=== PATIENT | male | born 1940 | race Caucasian/White ===

== ENCOUNTER 2017-10-20 02:35 | Emergency (ER) | payer MEDICARE ==
[~2017-10-20] VITALS: Ht 175.3 cm; Wt 83.9 kg
--- NOTE | 2017-10-20 03:31 | ED Neck-Back Pain/Injury ---
General Chief Complaint: Head/Cervical Problems Stated Complaint: NECK & HEAD PAIN Source of Information: Patient Exam Limitations: No Limitations History of Present Illness Date Seen by Provider: Oct 20, 2017 Time Seen by Provider: 03:22 Initial Comments Patient presents to ER by private conveyance with chief complaint of past several months now he's been having some chronic neck and back pain it's just been getting worse. He was controlling it with Aleve but then he started having a lot of acid reflux so his doctor put him on Voltaren which is helped marginally but he says he is not able to get any sleep because the pain in his neck and back. He said 20 years ago he had a surgery on his neck by a surgeon in [place]. He has not followed with physical therapy or another orthopedic surgeon or back and spine surgeon. He is using the Voltaren but no other topical creams. He uses tramadol with marginal relief. His son thinks that his back and neck pain is gotten worse the last couple days because the patient's has become more dependent of care and the patient has been having to try and lift her up out of chairs and help her go to the bathroom and he thinks this is what hurting his father's neck. Patient was recently started on Sinemet for his Parkinson's disease. He has a history of hypertension but no cardiac disease and is not on any amiodarone or other antiarrhythmics. Last tramadol was at 8:00 PM yesterday. Allergies and Home Medications Allergies Coded Allergies: No Known Drug Allergies (Unverified , 10/20/17) Patient Home Medication List Home Medication List Reviewed: Yes Constitutional: No chills, No diaphoresis, No fever, No malaise, No weakness EENTM: No ear pain, No eye pain Respiratory: No cough, No short of breath Cardiovascular: No chest pain, No edema Gastrointestinal: No abdominal pain, No constipation, No diarrhea, No nausea Genitourinary: No discharge, No dysuria Musculoskeletal: see HPI; No back pain, No joint pain; neck pain Skin: No pruritus, No rash Psychiatric/Neurological: Headache; Denies Numbness, Denies Paresthesia Past Phtsurw-Orbvsf-Zhfxtx Hx Patient Social History Alcohol Use: Denies Use Recreational Drug Use: No Smoking Status: Never a Smoker Recent Foreign Travel: No Contact w/Someone Who Travel: No Recent Hopitalizations: No Seasonal Allergies Seasonal Allergies: No Past Medical History Surgeries: Yes Orthopedic, Prostatectomy Respiratory: No Cardiac: Yes Hypertension Neurological: Yes Parkinson's Disease Genitourinary: Yes Prostate Problems Gastrointestinal: No Musculoskeletal: No Endocrine: No HEENT: No Cancer: Yes Prostate Psychosocial: No Integumentary: No Blood Disorders: No Physical Exam Vital Signs Vital Signs - First Documented 10/20/17 02:49 Temp 97.8 Pulse 82 Resp 19 B/P (MAP) 144/104 (117) Pulse Ox 97 O2 Delivery Room Air Capillary Refill : Height, Weight, BMI Height: '" Weight: lbs. oz. kg; BMI Method: General Appearance: No Apparent Distress, WD/WN HEENT: PERRL/EOMI, TMs Normal, Normal ENT Inspection, Pharynx Normal, Moist Mucous Membranes Neck: Normal Inspection, Supple, Tender Lateral Cardiovascular: Regular Rate, Rhythm, Normal Peripheral Pulses Respiratory: Chest Non Tender, Lungs Clear, Normal Breath Sounds Back: Normal Inspection, No CVA Tenderness, No Vertebral Tenderness Extremity: Normal Capillary Refill, Normal Inspection, Non Tender, No Calf Tenderness Neurologic/Psychiatric: Alert, Oriented x3, No Motor/Sensory Deficits, Normal Mood/Affect, shingle sawyer II-XII Norm as Tested, Other (negative for focal deficits or radiculopathy findings) Skin: Normal Color, Warm/Dry Progress/Results/Core Measures Results/Orders My Orders Orders - DEVI ARITA Lidocaine 1% Inj 20 Ml (Xylocaine 1% Inj (10/20/17 03:45) Acetaminophen Tablet (Tylenol Tablet) (10/20/17 03:45) Fentanyl Injection (Sublimaze Injection (10/20/17 03:45) Saline Lock/Iv-Start (10/20/17 03:31) Continuous Ekg Monitoring (10/20/17 03:31) Ondansetron Injection (Zofran Injectio (10/20/17 04:00) Ns (Ivpb) (Sodium Chloride 0.9% Ivpb Bag (10/20/17 03:52) Lidocaine 1% Inj 20 Ml (Xylocaine 1% Inj (10/20/17 04:30) Orphenadrine Injection (Norflex Injectio (10/20/17 04:30) Lidocaine 2% Viscous 15 Ml (Xylocaine Vi (10/20/17 04:30) Famotidine Tablet (Pepcid Tablet) (10/20/17 04:30) Antacid Suspension (Mylanta Suspension (10/20/17 04:30) Ketorolac Injection (Toradol Injection) (10/20/17 04:30) Ns (Ivpb) (Sodium Chloride 0.9% Ivpb Bag (10/20/17 04:32) Medications Given in ED Current Medications Medications Dose Ordered Sig/Heaven Route Start Time Stop Time Status Last Admin Dose Admin Al Hydrox/Mg Hydrox/Simethicone 30 ml ONCE ONCE PO 10/20/17 04:30 10/20/17 04:31 DC 10/20/17 04:43 30 ML Fentanyl Citrate 50 mcg ONCE ONCE IVP 10/20/17 03:45 10/20/17 03:46 DC 10/20/17 04:04 50 MCG Ketorolac Tromethamine 10 mg ONCE ONCE IVP 10/20/17 04:30 10/20/17 04:31 DC 10/20/17 04:43 10 MG Lidocaine HCl 10 ml ONCE ONCE INJ 10/20/17 04:30 10/20/17 04:31 DC 10/20/17 04:44 10 ML Lidocaine HCl 13 ml ONCE ONCE INJ 10/20/17 03:45 10/20/17 03:46 DC 10/20/17 04:04 13 ML Lidocaine HCl 15 ml ONCE ONCE PO 10/20/17 04:30 10/20/17 04:31 DC 10/20/17 04:43 15 ML Ondansetron HCl 4 mg ONCE ONCE IVP 10/20/17 04:00 10/20/17 04:01 DC 10/20/17 04:04 4 MG Orphenadrine Citrate 30 mg ONCE ONCE IV 10/20/17 04:30 10/20/17 04:31 DC 10/20/17 04:40 30 MG Sodium Chloride 100 ml @ ud STK-MED ONCE .ROUTE 10/20/17 03:52 10/20/17 03:56 DC 10/20/17 04:05 999 MLS/HR Sodium Chloride 100 ml @ ud STK-MED ONCE .ROUTE 10/20/17 04:32 10/20/17 04:36 DC 10/20/17 04:46 999 MLS/HR Vital Signs/I&O 10/20/17 02:49 Temp 97.8 Pulse 82 Resp 19 B/P (MAP) 144/104 (117) Pulse Ox 97 O2 Delivery Room Air Progress Progress Note : Time: 04:44 Progress Note Started an IV put him on the media monitor initially trialed 1.5 mg lidocaine per kilogram over 5 minutes. Gave him some Zofran and 50 g of fentanyl. He says his pain is only marginally improved. We'll give him a little more pain medicines to include a GI cocktail as well as upset stomach and Tylenol Toradol. After giving him the second round of pain medicines a patient's eyes are heavy and he is having difficulty keeping them open but he still says that his pain is completely untouched. He is not having any radiation of his pain he says is mostly in his lateral neck muscles/trapezius. If he hadn't given the history that this pain is been going on for multiple months it would almost seem like a torticollis. We'll allow the NSAIDs to start working and reevaluate him in about 10-15 minutes. Departure Impression Primary Impression: Neck pain Additional Impression: Tension type headache Qualified Codes: G44.201 - Tension-type headache, unspecified, intractable Disposition: 01 HOME, SELF-CARE Condition: Improved Departure-Patient Inst. Decision time for Depature: 04:39 Referrals: BONNIE CARRION MD (PCP/Family) Primary Care Physician Patient Instructions: Headache, Adult (DC) Add. Discharge Instructions: Follow-up with your primary care provider tomorrow and ask about other pain management techniques such as pain medicines, topical creams like icy hot or Capsaicin oil or physical therapy. If you need more intensive physical therapy regimen which can be provided at home or outpatient then you can consider acute rehabilitation unit. [facility] acute rehabilitation unit can be reached by the block splitter operator at [phone]. Your primary care doctor can help set this up as well as you're interested. Heating pads and muscle relaxants can also be useful. All discharge instructions reviewed with patient and/or family. Voiced understanding. Scripts Cyclobenzaprine HCl (Cyclobenzaprine HCl) 10 Mg Tablet 10 MG PO Q8H PRN for SPASMS, #15 TAB 0 Refills Prov: DEVI ARITA 10/20/17 Oxycodone HCl/Acetaminophen (Percocet 5-325 mg Tablet) 1 Each Tablet 1 EACH PO Q6H PRN for BREAKTHROUGH PAIN for 3 Days, #14 TAB 0 Refills Prov: DEVI ARITA 10/20/17 Copy Copies To 1: BONNIE CARRION MD, TITUS J Oct 20, 2017 03:31
[2017-10-20] MEDS ORDERED: LIDOCAINE 1% INJ 20 ML 20 ML VIAL INJ ONE ×2 (03:45→04:30)
[2017-10-20] MEDS ORDERED: ACETAMINOPHEN 500 MG TAB (TYLENOL) PO ONE (03:45)
[2017-10-20] MEDS ORDERED: fentaNYL INJECTION 100 MCG/2 ML AMP IVP ONE (03:45)
[2017-10-20] MEDS ORDERED: NS (IVPB) 100 ML ONE ×2 (03:52→04:32)
[2017-10-20] MEDS ORDERED: ONDANSETRON 4 MG/2 ML (SDV) Z0FRAN IVP ONE (04:00)
[2017-10-20] MEDS ORDERED: LIDOCAINE 2% VISCOUS 15 ML UDC PO ONE (04:30)
[2017-10-20] MEDS ORDERED: KETOROLAC 30 MG/ML VIAL IVP ONE (04:30)
[2017-10-20] MEDS ORDERED: FAMOTIDINE 20 MG (PEPCID) TABLET PO STA (04:30)
[2017-10-20] MEDS ORDERED: ANTACID SUSP 30 ML UDC (MYLANTA) PO ONE (04:30)
[2017-10-20] MEDS ORDERED: ORPHENADRINE 60 MG/2 ML (NORFLEX) AMP IV ONE (04:30)
[2017-10-20] MEDS ORDERED: CYCL10TA9 PO (05:21)
[2017-10-20] MEDS ORDERED: OXYC-197 PO (05:21)
[2017-10-20 05:27] VITALS: BP 162/93
== END 2017-10-20 05:28 | disposition home or self-care (01) ==
LOC: EDUNIT# 02:35 → ER 02:37
DX: M54.2 Cervicalgia (principal); G44.201 Tension-type headache, unspecified, intractable; K21.9 Gastro-esophageal reflux disease without esophagitis; G20 Parkinson's disease; I10 Essential (primary) hypertension; Z90.79 Acquired absence of other genital organ(s); Z85.46 Personal history of malignant neoplasm of prostate

== ENCOUNTER 2018-01-03 22:21 | Inpatient (IN) | payer MEDICARE ==
[~2018-01-03] VITALS: Ht 175.3 cm; Wt 78.5 kg
[~2018-01-03 22:21] MED LIST: CYCL10TA9 PO; OXYC1TAB87 PO
[2018-01-03] MEDS ORDERED: NS IV 1000 ML 1,000 ML ONE (22:51)
[2018-01-03] MEDS ORDERED: NS IV 1000 ML 1,000 ML IV SCH (23:02)
--- NOTE | 2018-01-03 23:10 | ED Cardiac General ---
History of Present Illness General Chief Complaint: Cardiac/General Problems Stated Complaint: NECK PAIN;IRREGUALR HEART RATE Nursing Triage Note: PT TO ROOM #10 VIA W/C BY ED STAFF FROM WAITING ROOM. A&OX4. C/O INCREASE PULSE RATE, LH, AND DIZZINESS THAT BEGAN THIS AM. PT REPORTS HE FEELS THOUGH HIS "HEART IS GOING TO BEAT OUT OF HIS CHEST." INITIAL PULSE RATE OF 126. REPORTS DR. CARRION STARTED HIM ON A NEW PRESCRIPTION OF NEUROTIN THAT HE BEGAN YESTERDAY. UPON ARRIVAL PT NOTED TO HAVE MILD TREMORS WHICH HE REPORTS IS DT HIS PARKINSONS. DENIES CHEST PAIN AND SOB. REPORTS NECK PAIN RT TO STENOSIS IN HIS NECK. PT SON @ SIDE. Source: patient, family (son) Exam Limitations: no limitations History of Present Illness Date Seen by Provider: Jan 03, 2018 Time Seen by Provider: 22:56 Initial Comments Patient presents ER by private conveyance with his son and chief complaint that today he's not been feeling well the lightheaded dizzy heart racing. Check his blood pressure several times and said it was unable to read because of air. He does not have a history of atrial fibrillation or any dysrhythmias. Says he felt like his heart rate was very irregular. He denies any fevers chills runny nose, coungh, sore throat shortness of breath, nausea, vomiting, diarrhea. He has had some dysuria and had urine checked about a week ago. He says he gets urinary hesitancy followed by burning when he urinates. He says the urinalysis then was normal. He has chronic constipation for which he uses stool softeners and senna. No history of heart disease. Not on blood thinners. Uses doxazosin for blood pressure. Has a history of Parkinson's. Allergies and Home Medications Allergies Coded Allergies: No Known Drug Allergies (Unverified , 10/20/17) Home Medications Cyclobenzaprine HCl 10 Mg Tablet, 10 MG PO Q8H PRN for SPASMS Prescribed by: DEVI ARITA on 10/20/17 0521 Oxycodone HCl/Acetaminophen 1 Each Tablet, 1 EACH PO Q6H PRN for BREAKTHROUGH PAIN Prescribed by: DEVI ARITA on 10/20/17 0521 Patient Home Medication List Home Medication List Reviewed: Yes Review of Systems Review of Systems Constitutional: No chills, No diaphoresis, No fever; malaise, weakness EENTM: No Blurred Vision, No Double Vision Respiratory: Denies Cough, Denies Shortness of Air Cardiovascular: See HPI; Denies Chest Pain, Denies Edema; Irregular Heart Rate , Lightheadedness, Palpitations; Denies Syncope Gastrointestinal: Denies Abdomen Distended, Denies Abdominal Pain, Denies Nausea Genitourinary: Denies Burning, Denies Discharge, Denies Drainage Musculoskeletal: No back pain, No neck pain Skin: No pruritus, No rash Past Bcvvogp-Przldg-Uezvgm Hx Patient Social History Alcohol Use: Denies Use Recreational Drug Use: No Smoking Status: Never a Smoker Recent Foreign Travel: No Contact w/Someone Who Travel: No Recent Infectious Disease Expo: No Recent Hopitalizations: No Seasonal Allergies Seasonal Allergies: No Past Medical History Surgeries: Yes Orthopedic, Prostatectomy Respiratory: No Cardiac: Yes Hypertension Neurological: Yes Parkinson's Disease Genitourinary: Yes Prostate Problems Gastrointestinal: No Musculoskeletal: No Endocrine: No HEENT: No Cancer: Yes Prostate Psychosocial: No Integumentary: No Blood Disorders: No Physical Exam Vital Signs Vital Signs - First Documented 01/03/18 22:25 Temp 97.3 Pulse 126 Resp 16 B/P (MAP) 121/82 (95) Pulse Ox 97 O2 Delivery Room Air Capillary Refill : Less Than 3 Seconds Height, Weight, BMI Height: 5'9.00" Weight: 170lbs. oz. 77.015568gk; BMI Method:Stated General Appearance: No Apparent Distress, WD/WN HEENT: PERRL/EOMI, TMs Normal, Normal ENT Inspection, Pharynx Normal, Moist Mucous Membranes Neck: Full Range of Motion, Normal Inspection Respiratory: Chest Non Tender, Lungs Clear, Normal Breath Sounds, No Accessory Muscle Use, No Respiratory Distress Cardiovascular: Regular Rate, Rhythm, No Edema, Normal Peripheral Pulses Gastrointestinal: Normal Bowel Sounds, No Organomegaly, Non Tender, Soft Neurologic/Psychiatric: Alert, Oriented x3, Normal Mood/Affect Skin: Normal Color, Warm/Dry Focused Exam Lactate Level 01/03/18 23:10: Lactic Acid Level 0.76 Lactic Acid Level Laboratory Tests Test 01/03/18 23:10 Lactic Acid Level 0.76 MMOL/L (0.50-2.00) Progress/Results/Core Measures Results/Orders Lab Results Laboratory Tests Test 01/03/18 22:29 01/03/18 23:10 Range/Units White Blood Count 4.8 4.3-11.0 10^3/uL Red Blood Count 4.53 4.35-5.85 10^6/uL Hemoglobin 14.0 13.3-17.7 G/DL Hematocrit 38 L 40-54 % Mean Corpuscular Volume 84 80-99 FL Mean Corpuscular Hemoglobin 31 25-34 PG Mean Corpuscular Hemoglobin Concent 37 H 32-36 G/DL Red Cell Distribution Width 13.7 10.0-14.5 % Platelet Count 183 130-400 10^3/uL Mean Platelet Volume 8.7 7.4-10.4 FL Neutrophils (%) (Auto) 53 42-75 % Lymphocytes (%) (Auto) 27 12-44 % Monocytes (%) (Auto) 17 H 0-12 % Eosinophils (%) (Auto) 1 0-10 % Basophils (%) (Auto) 1 0-10 % Neutrophils # (Auto) 2.6 1.8-7.8 X 10^3 Lymphocytes # (Auto) 1.3 1.0-4.0 X 10^3 Monocytes # (Auto) 0.8 0.0-1.0 X 10^3 Eosinophils # (Auto) 0.1 0.0-0.3 10^3/uL Basophils # (Auto) 0.0 0.0-0.1 10^3/uL Prothrombin Time 13.5 12.2-14.7 SEC INR Comment 1.0 0.8-1.4 Activated Partial Thromboplast Time 34 24-35 SEC Sodium Level 125 *L 135-145 MMOL/L Potassium Level 3.5 L 3.6-5.0 MMOL/L Chloride Level 90 L 98-107 MMOL/L Carbon Dioxide Level 23 21-32 MMOL/L Anion Gap 12 5-14 MMOL/L Blood Urea Nitrogen 11 7-18 MG/DL Creatinine 1.18 0.60-1.30 MG/DL Estimat Glomerular Filtration Rate 60 BUN/Creatinine Ratio 9 Glucose Level 124 H 70-105 MG/DL Calcium Level 9.5 8.5-10.1 MG/DL Corrected Calcium 9.2 8.5-10.1 MG/DL Total Bilirubin 1.0 0.1-1.0 MG/DL Aspartate Amino Transf (AST/SGOT) 24 5-34 U/L Alanine Aminotransferase (ALT/SGPT) 24 0-55 U/L Alkaline Phosphatase 31 L 40-136 U/L Troponin I < 0.30 <0.30 NG/ML Total Protein 7.1 6.4-8.2 GM/DL Albumin 4.4 3.2-4.5 GM/DL Lactic Acid Level 0.76 0.50-2.00 MMOL/L My Orders Orders - DEVI ARITA Ns Iv 1000 Ml (Sodium Chloride 0.9%) (01/03/18 22:51) Cbc With Automated Diff (01/03/18 23:02) Comprehensive Metabolic Panel (01/03/18 23:02) Blood Culture (01/03/18:02) Sputum Culture (01/03/18:) Urinalysis (01/03/18:) Urine Culture (01/03/18:) Protime With Inr (01/03/18:) Partial Thromboplastin Time (01/03/18:02) Chest 1 View, Ap/Pa Only (01/03/18 23:02) Saline Lock/Iv-Start (01/03/18 23:02) Saline Lock/Iv-Start (01/03/18 23:02) Ekg Tracing (01/03/18:02) Troponin I (01/03/18 23:02) Vital Signs Adult Sepsis Patie Q15M (01/03/18 23:02) O2 (01/03/18 23:02) Remove Rings In Anticipation O (01/03/18 23:02) Lactic Acid Analyzer (01/03/18:02) Monitor-Rhythm Ecg Trace Only (01/03/18 23:02) Saline Lock/Iv-Start (01/03/18 23:02) Ns Iv 1000 Ml (Sodium Chloride 0.9%) (01/03/18 23:02) Medications Given in ED Current Medications Medications Dose Ordered Sig/Heaven Route Start Time Stop Time Status Last Admin Dose Admin Sodium Chloride 1,000 ml @ ud STK-MED ONCE .ROUTE 01/03/18 22:51 01/03/18 22:52 DC 01/03/18 23:05 999 MLS/HR Vital Signs/I&O 01/03/18 22:25 Temp 97.3 Pulse 126 Resp 16 B/P (MAP) 121/82 (95) Pulse Ox 97 O2 Delivery Room Air Blood Pressure Mean: 95 Progress Progress Note : Time: 23:09 Progress Note Sinus tachycardia. We'll check some urine and blood giving couple liters of fluid which would be about 30 cc/kg bolus. His blood pressure is on the borderline of low in the 90s to 100 systolic range. Heart rate came in at 140 but is now down to 120 at rest. We'll look for a cause of sinus tachycardia such as hypovolemia, infection etc. Initial ECG Impression Date: Jan 03, 2018 Initial ECG Impression Time: 22:29 Initial ECG Rate: 126 Initial ECG Rhythm: S.Tach Initial ECG Intervals: Normal Initial ECG Impression: Nonspecific Changes Initial ECG Comparisson: Changed Comment Sinus tachycardia. Regular rhythm. Diagnostic Imaging Diagonstic Imaging: Xray Plain Films/CT/US/NM/MRI: chest (1v) Comments No acute cardiopulmonary processes noted in the 1 view chest. Reviewed: Reviewed by Me Departure Communication (Admissions) Time/Spoke to Admitting Phy: 00:00 Discussed case lab imaging findings with Dr. Schaffer he agrees to accept the patient on observation status. Time/Spoke to Consulting Phy: 23:50 Dr Pascual: Discussed the case and since the heart rate went from 140 down to 126 down to 76 over an hour with just adding fluids he thinks it's less likely that this is a atrial fibrillation with 2-1 block and more likely this was just sinus tachycardia with some kind of dehydration or volume depletion. The hyponatremia is further evidence for this and he would suggest an overnight observation stay on the medical service to try and find out why that might be an keep some gentle hydration going overnight. He probably hold the beta blockers for now. Impression Primary Impression: Sinus tachycardia by electrocardiogram Additional Impressions: Dehydration Hyponatremia Disposition: ADMITTED INPATIENT Condition: Improved Admissions Decision to Admit Reason: Admit from ER (General) Decision to Admit/Date: Jan 04, 2018 Time/Decision to Admit Time: 00:05 Departure-Patient Inst. Referrals: BONNIE CARRION MD (PCP/Family) Primary Care Physician Copy Copies To 1: BONNIE CARRION MD, TITUS J Jan 03, 2018 23:10
[2018-01-03 23:15] LABS: BASOPHILS % (AUTO) 1 % (0-10); EOSINOPHILS # (AUTO) 0.1 10^3/uL (0.0-0.3); EOSINOPHILS % (AUTO) 1 % (0-10); HEMATOCRIT 38 % (40-54); LYMPHOCYTES # (AUTO) 1.3 X 10^3 (1.0-4.0); LYMPHOCYTES % (AUTO) 27 % (12-44); MEAN CORPUSCULAR HEMOGLOBIN 31 PG (25-34); MEAN CORPUSCULAR HGB CONC 37 G/DL (32-36); MEAN CORPUSCULAR VOLUME 84 FL (80-99); MEAN PLATELET VOLUME 8.7 FL (7.4-10.4); MONOCYTES # (AUTO) 0.8 X 10^3 (0.0-1.0); MONOCYTES % (AUTO) 17 % (0-12); NEUTROPHILS # (AUTO) 2.6 X 10^3 (1.8-7.8); NEUTROPHILS % (AUTO) 53 % (42-75); PLATELET COUNT 183 10^3/uL (130-400); RED BLOOD COUNT 4.53 10^6/uL (4.35-5.85); RED CELL DISTRIBUTION WIDTH 13.7 % (10.0-14.5); WHITE BLOOD COUNT 4.8 10^3/uL (4.3-11.0)
[2018-01-03 23:18] LABS: PROTHROMBIN TIME PATIENT 13.5 SEC (12.2-14.7)
[2018-01-03 23:27] LABS: ALANINE AMINOTRANSFERASE 24 U/L (0-55); ALBUMIN 4.4 GM/DL (3.2-4.5); ALKALINE PHOSPHATASE 31 U/L (40-136); BUN/CREATININE RATIO 9; CALCIUM 9.5 MG/DL (8.5-10.1); CARBON DIOXIDE 23 MMOL/L (21-32); CHLORIDE 90 MMOL/L (98-107); CREATININE SERUM 1.18 MG/DL (0.60-1.30); GFR ESTIMATED 60; GLUCOSE 124 MG/DL (70-105); POTASSIUM 3.5 MMOL/L (3.6-5.0); TOTAL PROTEIN 7.1 GM/DL (6.4-8.2)
[2018-01-03 23:32] LABS: SODIUM 125 MMOL/L (135-145)
[2018-01-04] MEDS ORDERED: IBUPROFEN 600 MG (MOTRIN) TAB PO ONE (00:15)
[2018-01-04] MEDS ORDERED: GABAPENTIN 100 MG (NEURONTIN) CAP PO ONE (00:15)
[2018-01-04 00:25] LABS: BILIRUBIN,URINE NEGATIVE (NEGATIVE); CLARITY,URINE CLEAR; COLOR,URINE YELLOW; GLUCOSE, URINE (UA) NEGATIVE (NEGATIVE); KETONES,URINE NEGATIVE (NEGATIVE); LEUKOCYTE ESTERASE ,URINE NEGATIVE (NEGATIVE); NITRITE,URINE NEGATIVE (NEGATIVE); PH,URINE 7 (5-9); PROTEIN,URINE NEGATIVE (NEGATIVE); UROBILINOGEN,URINE NORMAL (NORMAL)
--- OUTSIDE RECORDS SUMMARY | 2018-01-04 00:28 | XMS REPORT | Clinical Summary ---
Author Author [facility] Organization [facility] Address Unknown Phone Unavailable Care Team Providers Care Breaker Boss Name Role Phone Joshua Romero PA-C Unavailable Nestor Gregory MD PCP Kelley Cole MD Unavailable Source Comments Some departments are not documenting in the electronic medical record. If you do not see the information that you expected, contact Release of Information in the Health Information Management department at [phone] for further assistance in locating additional records.[facility] Allergies No Known Allergies Current Medications Prescription Sig. Disp. Refills Start End Date Status Date lisinopril (PRINIVIL; Take 20 mg by mouth Active ZESTRIL) 20 mg tablet daily. busPIRone (BUSPAR) 5 mg Take 5 mg by mouth at Active tablet bedtime daily. BUSPIRONE HCL (BUSPAR PO) Take 2.5 mg by mouth Active daily. MULTIVITAMIN Take 1 Tab by mouth Active W-MINERALS/LUTEIN daily. (CENTRUM SILVER PO) aspirin EC 81 mg tablet Take 81 mg by mouth Active daily. ascorbic acid (VITAMIN-C) Take 250 mg by mouth Active 250 mg tablet daily. Calcium Citrate 1,000 mg Take 1 Tab by mouth Active Tab daily. SAW PALMETTO PO Take 1 Tab by mouth twice Active daily. glucosamine(+) Take 500 mg by mouth Active (GLUCOSAMINE) 500 mg Tab twice daily. DOCOSAHEXANOIC ACID/EPA Take 1 Cap by mouth at Active (FISH OIL PO) bedtime daily. hyoscyamine (ANASPAZ; Place 1 Tab under tongue 30 Tab 1 07/07/19 Active NULEV; SYMAX FASTABS; every 4 hours as needed. 12 HYOMAX-FT; ED-SPAZ; OSCIMIN) 0.125 mg rapid dissolve tablet polymyxin/bacitracin/sascha/ Apply as directed. 1 Container 0 07/07/19 Active HC (CORTISPORIN) 1 % 12 topical ointment oxybutynin XL (DITROPAN Take 1 Tab by mouth daily 10 Tab 0 07/07/19 Active XL) 10 mg tablet as needed. 12 senna/docusate Take 1 Tab by mouth twice 60 Tab 0 07/07/19 Active (SENOKOT-S) 8.6/50 mg daily. 12 tablet oxyCODONE-acetaminophen Take 1-2 Tabs by mouth 40 Tab 0 07/07/19 Active (PERCOCET; ENDOCET; every 4 hours as needed 12 ROXICET) 5/325 mg tablet for Pain. Max 12 tabs/day Active Problems Problem Noted Date Prostate cancer (HCC) 04/04/2011 Family History Medical History Relation Name Comments Cancer Father Lymphoma Relation Name Status Comments Father Social History Tobacco Use Types Packs/Day Years Used Date Former Smoker Cigarettes 3 Quit: 07/04/1964 Smokeless Tobacco: Former Chew Quit: User 11/12/2001 Alcohol Use Drinks/Week oz/Week Comments Yes 1-3 Standard 0.5 - 1.5 occassionally drinks or equivalent Sex Assigned at Date Recorded Not on file Last Filed Vital Signs Vital Sign Reading Time Taken Blood Pressure 124/77 07/07/2011 7:55 AM CDT Pulse 60 07/07/2011 7:55 AM CDT Temperature 36.8 C (98.3 F) 07/07/2011 7:55 AM CDT Respiratory Rate - - Oxygen Saturation 97% 07/07/2011 7:55 AM CDT Inhaled Oxygen - - Concentration Weight 73.8 kg (162 lb 11.2 oz) 07/05/2011 12:01 PM CDT Height 175.3 cm (5' 9") 07/05/2011 12:01 PM CDT Body Mass Index 24.03 07/05/2011 12:01 PM CDT Plan of Treatment Health Maintenance Due Date Last Done Comments PHYSICAL (COMPREHENSIVE) 1947 EXAM PERTUSSIS VACCINE 1950 TETANUS VACCINE 02/28/1956 SHINGLES RECOMBINANT 1989 VACCINE (1 of 2) PNEUMONIA (PCV13/PPSV23) 02/28/2004 VACCINES (1 of 2 - PCV13) INFLUENZA VACCINE 10/02/2017 Results Not on filefrom Last 3 Months
--- OUTSIDE RECORDS SUMMARY | 2018-01-04 00:31 | XMS REPORT | CCD ---
Author Author [facility] Organization [facility] Address [address] [place] [address] Phone Care Team Providers Care Hr Generalist Name Role Phone PP Unavailable CCM Unavailable Summary Purpose Interface Exchange Insurance Providers Payer name Policy type / Coverage type Covered green party ID Effective Begin Date Effective End Date WPS Medicare Part B Medicare Part B [id number] 2017 Unknown [facility] Medicare Part B [id number] Unknown Family history Uncle Diagnosis Age At Onset Heart Attack Unknown Grandmother Diagnosis Age At Onset Heart Attack Unknown Grandfather Diagnosis Age At Onset Heart Attack Unknown Mother Diagnosis Age At Onset Diabetes mellitus Type 2 Unknown Atrial fibrillation Unknown Brother Diagnosis Age At Onset No Family Disease Entered N/A Father Diagnosis Age At Onset lymphoma Unknown Social History Social History Element Codes Description Effective Dates Marital status Unknown 09/20/2011 Employment Unknown Retired 09/20/[address]: 583493440 Nonsmoker smoked for 2-3 years in 20's, used smokeless tobacco for 40 yrs 09/20/[address]: 9058063 Former smoker quit 1965 09/20/2011 Alcohol history Unknown occasionally drinks alcohol drinks socially 09/20/2011 Alcohol history Unknown occasionally drinks alcohol 2-3 weekly 09/20/2011 Has the patient ever used illegal drugs? Unknown Has never used illegal drugs 09/20/2011 Allergies, Adverse Reactions, Alerts Substance Reaction Codes Entered Date Inactivated Date Status * NO KNOWN FOOD ALLERGIES Unknown 09/20/2011 No Inactive Date Active * NO KNOWN DRUG ALLERGIES Unknown 09/20/2011 No Inactive Date Active Past Medical History Illness Codes Condition Status Onset Date Resolved Date Cervicalgia ICD-9: 723.1 ICD-10: M54.2 Active 10/18/2017 Unknown Essential (primary) hypertension ICD-9: 401.1 ICD-10: I10 Active 01/01/2018 Unknown Muscle spasm of back ICD-9: 724.8 ICD-10: M62.830 Active 10/21/2017 Unknown Encounter for immunization ICD-9: V04.81 ICD-10: Z23 Active 11/21/2017 Unknown Dysuria ICD-9: 788.1 ICD-10: R30.0 Active 11/18/2017 Unknown Essential (primary) hypertension ICD-9: 401.9 ICD-10: I10 Active 12/03/2013 Unknown Essential tremor ICD-9 : 333.1 ICD-10: G25.0 Active 11/08/2015 Unknown Gastro-esophageal reflux disease without esophagitis ICD-9: 530.81 ICD-10: K21.9 Active 12/03/2013 Unknown Parkinson's disease ICD-9: 332.0 ICD-10: G20 Active 11/05/2017 Unknown Encounter for general adult medical examination with abnormal findings ICD-9: V70.0 ICD-10: Z00.01 Active 08/01/2017 Unknown Encounter for general adult medical examination without abnormal findings ICD-9: V70.9 ICD-10: Z00.00 Active 01/22/2016 Unknown Male erectile disorder ICD-9: 607.84 ICD-10: F52.21 Active 09/20/2011 Unknown Low back pain ICD-9: 724.2 ICD-10: M54.5 Active 03/13/2015 Unknown Malignant neoplasm of prostate ICD-9: 185 ICD-10: C61 Active 03/13/2015 Unknown GENERALIZED ANXIETY DISEASE ICD-9: 300.02 Active 06/10/2014 Unknown ESOPHAGEAL REFLUX ICD- 9: 530.81 Active 12/03/2013 Unknown ESSENTIAL HYPERTENSION ICD-9: 401.9 Active 12/03/2013 Unknown Nausea ICD-9: 787.02 Active 11/24/2012 Unknown Trigger finger ICD-9: 727.03 Active 05/26/2012 Unknown Actinic keratosis ICD- 9: 702.0 Active 10/02/2011 Unknown Hypertension Unknown Active 09/20/2011 Unknown Osteoarthritis Unknown Active 09/20/2011 Unknown Prostate Cancer Unknown Active 09/20/2011 Unknown Impotence ICD-9: 607.84 Active 09/20/2011 Unknown Osteoarthritis ICD-9: 715.90 Active 09/20/2011 Unknown Problems Condition Codes Effective Dates Condition Status Cervicalgia ICD-9: 723.1 ICD-10: M54.2 10/18/2017 Active Essential (primary) hypertension ICD-9: 401.1 ICD-10: I10 01/01/2018 Active Muscle spasm of back ICD-9: 724.8 ICD-10: M62.830 10/21/2017 Active Encounter for immunization ICD-9: V04.81 ICD-10: Z23 11/21/2017 Active Dysuria ICD-9: 788.1 ICD-10: R30.0 11/18/2017 Active Essential (primary) hypertension ICD-9: 401.9 ICD-10: I10 12/03/2013 Active Essential tremor ICD-9 : 333.1 ICD-10: G25.0 11/08/2015 Active Gastro-esophageal reflux disease without esophagitis ICD-9: 530.81 ICD-10: K21.9 12/03/2013 Active Parkinson's disease ICD-9: 332.0 ICD-10: G20 11/05/2017 Active Encounter for general adult medical examination with abnormal findings ICD-9: V70.0 ICD-10: Z00.01 08/01/2017 Active Encounter for general adult medical examination without abnormal findings ICD-9: V70.9 ICD-10: Z00.00 01/22/2016 Active Male erectile disorder ICD-9: 607.84 ICD-10: F52.21 09/20/2011 Active Low back pain ICD-9: 724.2 ICD-10: M54.5 03/13/2015 Active Malignant neoplasm of prostate ICD-9: 185 ICD-10: C61 03/13/2015 Active GENERALIZED ANXIETY DISEASE ICD-9: 300.02 06/10/2014 Active ESOPHAGEAL REFLUX ICD- 9: 530.81 12/03/2013 Active ESSENTIAL HYPERTENSION ICD-9: 401.9 12/03/2013 Active Nausea ICD-9: 787.02 11/24/2012 Active Trigger finger ICD-9: 727.03 05/26/2012 Active Actinic keratosis ICD- 9: 702.0 10/02/2011 Active Hypertension Unknown 09/20/2011 Active Osteoarthritis Unknown 09/20/2011 Active Prostate Cancer Unknown 09/20/2011 Active Impotence ICD-9: 607.84 09/20/2011 Active Osteoarthritis ICD-9: 715.90 09/20/2011 Active Medications Medication Codes Instructions Start Date Stop Date Status Fill Instructions doxazosin 1 mg tablet RxNorm: 090955 1 Tablet(s) PO BID 201707/29/2018 Active Generic For:CARDURA 1MG 11/05/2017 9:07:09 AM gabapentin 100 mg capsule RxNorm: 110329 1 Capsule(s) PO QHS 01/30/2018 Active ibuprofen 600 mg tablet RxNorm: 825149 1 Tablet(s) PO TID 12/1101/07/2018 Active ibuprofen 600 mg tablet RxNorm: 567954 1 Tablet(s) PO TID 12/1112/10/2017 Inactive diazepam 5 mg tablet RxNorm: 716672 12/-1 Tablet(s) PO BID as needed muscle spasms 12/10/2017 02/07/2018 Active diazepam 5 mg tablet RxNorm: 759320 1/2 Tablet(s) PO BID as needed muscle spasms 1 x refill given per angelina 11/29/17 11/29/2017 12/09/2017 Inactive buspirone 15 mg tablet RxNorm: 894031 TAKE 1 TABLET BY MOUTH DAILY IN THE MORNING THEN TAKE 1/2 TABLET BY MOUTH IN THE AFTERNOON AT 1 OR 2PM THEN TAKE 1 TABLET BY MOUTH AT BEDTIM 11/19/2017 04/11/2018 Active Generic For:BUSPAR 15MG 2017 3:51:51 PM diazepam 5 mg tablet RxNorm: 436449 1/2 Tablet(s) PO BID as needed muscle spasms 1 x refill given per dr 11/13/17 11/13/2017 11/26/2017 Inactive ropinirole 0.5 mg tablet RxNorm: 299505 1 Tablet(s) PO BID 06/201703/04/2018 Active carvedilol 12.5 mg tablet RxNorm: 665255 TAKE 1 TABLET BY MOUTH TWICE DAILY 11/05/2017 06/02/2018 Active Generic For:COREG 12.5MG 11/05/2017 9:07:16 AM doxazosin 1 mg tablet RxNorm: 090269 TAKE 1/2 (ONE- HALF) TABLET TWICE DAILY 11/05/2017 12/31/2017 Inactive Generic For:CARDURA 1MG 11/05/2017 9:07:09 AM Dexilant 60 mg capsule, delayed release RxNorm: 465186 1 Capsule(s) PO daily 10/28/2017 10/28/2017 Inactive ibuprofen 600 mg tablet RxNorm: 075965 1 Tablet(s) PO TID 10/2411/06/2017 Inactive ibuprofen 600 mg tablet RxNorm: 856257 1 Tablet(s) PO TID 10/2410/23/2017 Inactive diazepam 5 mg tablet RxNorm: 562135 1/2 Tablet(s) PO BID as needed muscle spasms 10/24/2017 11/05/2017 Inactive Requip 0.25 mg tablet RxNorm: 211187 1 Tablet(s) PO BID 201711/04/2017 Inactive buspirone 15 mg tablet RxNorm: 189815 Tablet(s) Take 1 pill in the morning, 1/2 pill at 1 or 2pm and 1 pill at bedtime 10/21/2017 11/18/2017 Inactive prednisone 20 mg tablet RxNorm: 396162 3 Tablet(s) PO daily -Prescribed by Dr. Dann Rod on 10/20/17 10/20/20172017 Inactive Dexilant 60 mg capsule, delayed release RxNorm: 615314 1 Capsule(s) PO daily 10/18/2017 10/27/2017 Inactive tramadol 50 mg tablet RxNorm: 956248 1 Tablet(s) PO TID PRN 10/24/2017 Inactive hydrochlorothiazide 25 mg tablet RxNorm: 756996 TAKE 1 TABLET BY MOUTH IN THE MORNING 09/30/2017 04/27/2018 Active Generic For:HYDRODIURIL 25 MG TABLET 2017 11:36:14 AM Sinemet 10 mg-100 mg tablet RxNorm: 595611 1 Tablet(s) PO BID morning and early afternoon 09/10/2017 10/20/2017 Inactive potassium chloride ER 10 mEq capsule,extended release RxNorm: 303643 1 Capsule(s) PO TIW 07/22/2017 06/22/2018 Active buspirone 15 mg tablet RxNorm: 996995 Tablet(s) Take 1 pill in the morning, 1/2 pill at 1 or 2pm and 1 pill at bedtime 05/08/2017 09/28/2017 Inactive doxazosin 1 mg tablet RxNorm: 189364 TAKE 1/2 (ONE- HALF) TABLET TWICE DAILY 04/10/2017 11/04/2017 Inactive Generic For:CARDURA 1MG 04/10/2017 1:06:52 PM carvedilol 12.5 mg tablet RxNorm: 769927 Tablet(s) TAKE 1 TABLET BY MOUTH TWICE DAILY 04/10/2017 11/04/2017 Inactive hydrochlorothiazide 25 mg tablet RxNorm: 503231 TAKE 1 TABLET BY MOUTH IN THE MORNING 03/05/2017 09/29/2017 Inactive Generic For:HYDRODIURIL 25 MG TABLET 2017 10:38:53 AM buspirone 15 mg tablet RxNorm: 488260 Tablet(s) Take 1 pill in the morning, 1/2 pill at 1 or 2pm and 1 pill at bedtime 12/06/2016 04/28/2017 Inactive doxazosin 1 mg tablet RxNorm: 095130 1/2 Tablet(s) PO BID 201604/09/2017 Inactive lisinopril 40 mg tablet RxNorm: 408651 TAKE 1/2 TABLET BY MOUTH TWICE DAILY 09/18/2016 09/12/2017 Inactive Generic For:ZESTRIL 40MG 09/18/2016 9:08:05 AM carvedilol 12.5 mg tablet RxNorm: 783406 Tablet(s) TAKE 1 TABLET BY MOUTH TWICE DAILY 09/14/2016 04/09/2017 Inactive potassium chloride ER 10 mEq capsule,extended release RxNorm: 918564 1 Capsule(s) PO TIW 08/14/2016 07/15/2017 Inactive hydrochlorothiazide 25 mg tablet RxNorm: 098598 TAKE 1 TABLET BY MOUTH IN THE MORNING 08/06/2016 03/03/2017 Inactive Generic For:HYDRODIURIL 25 MG TABLET 2016 9:47:38 AM doxazosin 1 mg tablet RxNorm: 265444 1/2 Tablet(s) PO BID 201611/11/2016 Inactive fexofenadine 180 mg tablet RxNorm: 840056 1 Tablet(s) PO daily 04/05/2016 10/01/2016 Inactive fexofenadine 180 mg tablet RxNorm: 792771 1 Tablet(s) PO daily 04/05/2016 04/04/2016 Inactive buspirone 15 mg tablet RxNorm: 619253 Tablet(s) Tablet(s) take 1 pill in the morning, 1/2 pill at 1 or 2pm and 1 pill at bedtime 201609/07/2016 Inactive Generic For:BUSPAR 15MG 08/19/2014 9:29:55 AM carvedilol 12.5 mg tablet RxNorm: 740824 Tablet(s) TAKE 1 TABLET BY MOUTH TWICE DAILY 02/14/2016 09/10/2016 Inactive potassium chloride ER 10 mEq capsule,extended release RxNorm: 891484 1 Capsule(s) PO TIW 02/08/2016 08/13/2016 Inactive hydrochlorothiazide 25 mg tablet RxNorm: 186019 1 Tablet(s) PO QAM 01/09/2016 08/05/2016 Inactive carvedilol 12.5 mg tablet RxNorm: 003078 TAKE 1 TABLET BY MOUTH TWICE DAILY 10/18/2015 02/13/2016 Inactive Generic For:COREG 12.5MG 10/17/2015 1:04:24 PM lisinopril 40 mg tablet RxNorm: 699435 1/2 Tablet(s) PO BID 08/15/2016 Inactive Generic For:ZESTRIL 20MG 07/21/2014 9:29:18 AM doxazosin 1 mg tablet RxNorm: 982719 1/2 Tablet(s) PO BID 201510/31/2015 Inactive this is FYI for now - and will remain this in the future, does not need a fill right now doxazosin 1 mg tablet RxNorm: 091457 1 Tablet(s) PO BID 201506/29/2015 Inactive doxazosin 1 mg tablet RxNorm: 831387 1 Tablet(s) PO BID 201507/03/2015 Inactive potassium chloride ER 10 mEq capsule,extended release RxNorm: 123380 1 Capsule(s) PO TIW 06/14/2015 01/09/2016 Inactive hydrochlorothiazide 25 mg tablet RxNorm: 650945 1 Tablet(s) PO QAM 06/14/2015 01/08/2016 Inactive buspirone 15 mg tablet RxNorm: 201459 Tablet(s) take 1 pill in the morning, 1/2 pill at 1 or 2pm and 1 pill at bedtime 06/13/2015 12/09/2015 Inactive Generic For: BUSPAR 15MG 08/19/2014 9:29:55 AM carvedilol 12.5 mg tablet RxNorm: 136230 TAKE 1 TABLET BY MOUTH TWICE DAILY 05/20/2015 09/16/2015 Inactive Generic For:COREG 12.5MG 05/20/2015 9:04:34 AM carvedilol 12.5 mg tablet RxNorm: 051368 Tablet(s) 1 Tablet(s) PO BID 05/20/2015 05/19/2015 Inactive carvedilol 12.5 mg tablet RxNorm: 779880 1 Tablet(s) PO BID 05/19/2015 Inactive spironolactone 50 mg tablet RxNorm: 479270 1 Tablet(s) PO QAM 12/13/2014 06/13/2015 Inactive carvedilol 12.5 mg tablet RxNorm: 467718 1 Tablet(s) PO BID 01/11/2015 Inactive spironolactone 25 mg tablet RxNorm: 083269 1 Tablet(s) PO QAM 09/13/2014 12/12/2014 Inactive spironolactone 25 mg tablet RxNorm: 026363 1 Tablet(s) PO QAM 09/13/2014 09/12/2014 Inactive buspirone 15 mg tablet RxNorm: 760071 Tablet(s) take 1 pill in the morning, 1/2 pill at 1 or 2pm and 1 pill at bedtime 09/09/2014 03/07/2015 Inactive Generic For: BUSPAR 15MG 08/19/2014 9:29:55 AM lisinopril 40 mg tablet RxNorm: 245639 1/2 Tablet(s) PO BID 08/19/2015 Inactive Generic For:ZESTRIL 20MG 07/21/2014 9:29:18 AM Coreg 6.25 mg tablet RxNorm: 960864 1 Tablet(s) PO BID 201409/13/2014 Inactive buspirone 15 mg tablet RxNorm: 405322 TAKE 1 TABLET BY MOUTH TWICE DAILY 08/19/2014 09/08/2014 Inactive Generic For:BUSPAR 15MG 08/19/2014 9:29:55 AM lisinopril 20 mg tablet RxNorm: 842925 1 Tablet(s) PO daily TAKE 1 TABLET BY MOUTH ONCE DAILY. 07/21/2014 07/20/2014 Inactive Generic For:*ZESTRIL 20MG Generic For:*ZESTRIL 20MG 07/29/2013 11:19:45 AM lisinopril 20 mg tablet RxNorm: 212637 TAKE 1 TABLET BY MOUTH ONCE DAILY. 07/21/2014 08/24/2014 Inactive Generic For:ZESTRIL 20MG 07/21/2014 9:29:18 AM buspirone 15 mg tablet RxNorm: 908509 1 Tablet(s) BID 1 Tablet(s) PO BID 06/21/2014 08/18/2014 Inactive Tamiflu 75 mg capsule RxNorm: 617761 1 Capsule(s) PO daily 03/1203/11/2014 Inactive Tamiflu 75 mg capsule RxNorm: 380067 1 Capsule(s) PO daily 03/1203/21/2014 Inactive buspirone 15 mg tablet RxNorm: 213315 1 Tablet(s) BID 1 Tablet(s) PO BID 02/16/2014 06/20/2014 Inactive buspirone 15 mg tablet RxNorm: 657474 1 Tablet(s) PO BID 201302/15/2014 Inactive lisinopril 20 mg tablet RxNorm: 665882 Tablet(s) PO TAKE 1 TABLET BY MOUTH ONCE DAILY. 07/30/2013 07/20/2014 Inactive Generic For:*ZESTRIL 20MG Generic For:* ZESTRIL 20MG 07/29/2013 11:19:45 AM buspirone 15 mg tablet RxNorm: 383974 1 Tablet(s) PO BID 201310/18/2013 Inactive Zithromax 250 mg tablet RxNorm: 045388 Tablet(s) PO 03/18/2013 06/13/2015 Inactive as directed buspirone 15 mg tablet RxNorm: 128394 Tablet(s) PO TAKE 1 TABLET AT BEDTIME AND TAKE 1/2 A TABLET TWICE A DAY 12/22/2012 05/24/2013 Inactive buspirone 15 mg tablet RxNorm: 945575 1 at hs 1/2 bid Tablet(s) PO daily 11/27/2012 10/20/2017 Inactive buspirone 15 mg tablet RxNorm: 416287 Tablet(s) PO daily 201211/26/2012 Inactive 1 q hs and 1/2 daily buspirone 15 mg tablet RxNorm: 730682 Tablet(s) PO daily 2012 No Stop Date Active 1 q hs and 1/2 daily buspirone 15 mg tablet RxNorm: 057233 Tablet(s) PO daily 201210/26/2012 Inactive 1 q hs and 1/2 daily lisinopril 20 mg tablet RxNorm: 718076 Tablet(s) PO TAKE 1 TABLET BY MOUTH ONCE DAILY. 08/05/2012 07/29/2013 Inactive lisinopril 20 mg tablet RxNorm: 649169 Tablet(s) PO TAKE 1 TABLET BY MOUTH ONCE DAILY. 07/07/2012 08/04/2012 Inactive lisinopril 20 mg tablet RxNorm: 860156 Tablet(s) PO 01/07/2012 07/06/2012 Inactive TAKE 1 TABLET BY MOUTH ONCE DAILY. lisinopril 20 mg tablet RxNorm: 211792 Tablet(s) PO 12/10/2011 01/06/2012 Inactive TAKE 1 TABLET BY MOUTH ONCE DAILY. lisinopril 20 mg tablet RxNorm: 944294 1 Tablet(s) PO daily 01/201212/09/2011 Inactive can have #90 if prefers lisinopril 20 mg tablet RxNorm: 106307 1 Tablet(s) PO daily 01/201211/12/2011 Inactive can have #90 if prefers buspirone 15 mg tablet RxNorm: 630514 Tablet(s) PO daily 201110/26/2012 Inactive 1 q hs and 1/2 daily Calcium 600 + D(3) oral RxNorm: 813623 oral No Start Date Active Percocet 5 mg-325 mg tablet RxNorm: 6764835 1 Tablet(s) PO Q6 as needed breakthrough pain- Prescribed by Dr. Lebron on 10/20/17 No Start Date Active Fish Oil Concentrate Oral RxNorm: Oral No Start Date Active Centrum Silver Oral RxNorm: Oral No Start Date Active Zithromax 250 mg tablet RxNorm: 034225 Tablet(s) PO No Start Date 03/17/2013 Inactive as directed lisinopril 20 mg tablet RxNorm: 003423 1 Tablet(s) PO daily No Start Date 11/16/2014 Inactive buspirone 15 mg tablet RxNorm: 367773 1 Tablet(s) PO daily No Start Date 09/24/2011 Inactive diazepam 5 mg tablet RxNorm: 667713 1 Tablet(s) PO Q6 as needed muscle spasms - Prescribed by Dr. Dann Rod on 10/20/17 No Start Date 10/23/2017 Inactive B Complex 1 Oral RxNorm: Oral No Start Date 06/13/2015 Inactive lisinopril 20 mg tablet RxNorm: 813765 1 Tablet(s) PO daily No Start Date 11/12/2011 Inactive Medication Administered No Medication Administered data Immunizations Vaccine Codes Date Status Influenza CVX: 141 11/21/2017 completed Assessments Condition Codes Effective Dates Cervicalgia ICD-10: M54.2 ICD-9: 723.1 01/01/2018 Essential (primary) hypertension ICD-10: I10 ICD-9: 401.1 01/01/2018 Muscle spasm of back ICD-10: M62.830 ICD-9: 724.8 01/01/2018 Encounter for immunization ICD-10: Z23 ICD-9: V04.81 11/21/2017 Dysuria ICD-10: R30.0 ICD-9: 788.1 11/18/2017 Essential (primary) hypertension ICD-10: I10 ICD-9: 401.9 11/05/2017 Parkinson's disease ICD-10: G20 ICD-9: 332.0 11/05/2017 Gastro-esophageal reflux disease without esophagitis ICD-10 : K21.9 ICD-9: 530.81 11/05/2017 Essential tremor ICD-10: G25.0 ICD-9: 333.1 09/10/2017 Encounter for general adult medical examination with abnormal findings ICD-10: Z00.01 ICD-9: V70.0 08/01/2017 Encounter for general adult medical examination without abnormal findings ICD-10: Z00.00 ICD-9: V70.9 01/23/2016 Male erectile disorder ICD-10: F52.21 ICD-9: 607.84 06/14/2015 Low back pain ICD-10: M54.5 ICD-9: 724.2 03/14/2015 Malignant neoplasm of prostate ICD-10: C61 ICD-9: 185 03/14/2015 ESSENTIAL HYPERTENSION ICD-9: 401.9 11/16 GENERALIZED ANXIETY DISEASE ICD-9: 300.02 09/09/2014 ESOPHAGEAL REFLUX ICD-9: 530.81 2014 IMPOTENCE, 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 Nausea ICD-9: 787.02 11/24/2012 Trigger finger ICD-9: 727.03 05/26/2012 Actinic keratosis ICD-9: 702.0 2011 Osteoarthritis ICD-9: 715.90 09/20/2011 Reason For Visit Reason For Visit Effective Dates Notes hypertension 01/01/2018 neck pain 12/10/2017 vaccination against influenza 11/21/2017 hypertension 11/05/2017 Hospital Follow Up 10/21/2017 neck pain 10/18/2017 hypertension 09/10/2017 Annual Medicare Wellness Exam 08/01/2017 hypertension 03/14/2017 hypertension 09/11/2016 hypertension 03/07/2016 Annual Medicare Wellness Exam 01/23/2016 hypertension 11/09/2015 hypertension 08/09/2015 hypertension 07/04/2015 hypertension 06/14/2015 hypertension 03/14/2015 blood pressure followup 12/13/2014 hypertension 11/16/2014 hypertension 09/09/2014 hypertension 08/25/2014 hypertension 06/10/2014 hypertension 12/03/2013 hypertension 05/25/2013 nausea 11/24/2012 finger pain 05/26/2012 hypertension 11/27/2011 skin lesion 10/02/2011 hypertension 09/20/2011 Results Observation Observation Code Item Item Code Result Date Lipid Ord30 CHOL 196 mg/dL 07/18/2016 Lipid Ord30 HDL 44.0 mg/dl 07/18/2016 Lipid Ord30 TRIG 86 mg/dL 07/18/2016 Lipid Ord30 LDL 135 mg/dL 07/18/2016 Lipid Ord30 C/HDL 4.5 Ratio 07/18/2016 Lipid Ord30 CHOL 208 mg/dL 03/08/2016 Lipid Ord30 HDL 47.0 mg/dl 03/08/2016 Lipid Ord30 TRIG 99 mg/dL 03/08/2016 Lipid Ord30 LDL 141 mg/dL 03/08/2016 Lipid Ord30 C/HDL 4.4 Ratio 03/08/2016 Cbc With Differential Ord2 WBC 4.53 K/ul 03/08/2016 Cbc With Differential Ord2 RBC 4.57 M/ul 03/08/2016 Cbc With Differential Ord2 HGB 14.2 g/dl 03/08/2016 Cbc With Differential Ord2 HCT 40.6 % 03/08/2016 Cbc With Differential Ord2 Neut% 48.4 % 03/08/2016 Cbc With Differential Ord2 Lymph% 36.6 % 03/08/2016 Cbc With Differential Ord2 MCV 88.8 fl 03/08/2016 Cbc With Differential Ord2 Grayson% 10.8 % 03/08/2016 Cbc With Differential Ord2 MCH 31.1 pg 03/08/2016 Cbc With Differential Ord2 MCHC 35.0 pg 03/08/2016 Cbc With Differential Ord2 Eos% 3.1 % 03/08/2016 Cbc With Differential Ord2 PLT 166 K/ul 03/08/2016 Cbc With Differential Ord2 Baso% 1.1 % 03/08/2016 Cbc With Differential Ord2 RDW 13.5 % 03/08/2016 Cbc With Differential Ord2 Neut ABS# 2.19 K/ul 03/08/2016 Cbc With Differential Ord2 Lymph ABS# 1.66 K/ul 03/08/2016 Cbc With Differential Ord2 Grayson ABS# 0.5 K/ul 03/08/2016 Cbc With Differential Ord2 Eos ABS# 0.1 K/ul 03/08/2016 Cbc With Differential Ord2 Baso ABS# 0.1 K/ul 03/08/2016 Comp Metabolic Ntx543 NA 137 mEq/L 03/08/2016 Comp Metabolic Qnc413 K 3.8 mEq/L 03/08/2016 Comp Metabolic Mjw556 CL 100 mEq/L 03/08/2016 Comp Metabolic Cey595 CO2 32.0 mEq/L 03/08/2016 Comp Metabolic Fxk737 ANION GAP 9 03/08/2016 Comp Metabolic Eey727 GLUCOSE 88 mg/dL 03/08/2016 Comp Metabolic Zaw241 Creat 1.1 mg/dL 03/08/2016 Comp Metabolic Ffk676 eGFR 67 ml/min/1.73m2 03/08/2016 Comp Metabolic Yup548 BUN 17 mg/dL 03/08/2016 Comp Metabolic Bzo894 B/C Ratio 15.0 Ratio 03/08/2016 Comp Metabolic Fuc229 CALCIUM 9.2 mg/dL 03/08/2016 Comp Metabolic Jiy598 ALK PHOS 43 U/L 03/08/2016 Comp Metabolic Ils552 AST(SGOT) 19 U/L 03/08/2016 Comp Metabolic Cuu673 ALT(SGPT) 17 U/L 03/08/2016 Comp Metabolic Uji068 BILI T 1.1 mg/dL 03/08/2016 Comp Metabolic Kyv869 ALBUMIN 4.2 g/dL 03/08/2016 Comp Metabolic Mrz789 TPRO 7.1 g/dL 03/08/2016 Comp Metabolic Gpi097 GLOB 2.9 g/dL 03/08/2016 Comp Metabolic Ktb837 A/G Ratio 1.5 Ratio 03/08/2016 Comp Metabolic Adr606 Osmo 275 mOsmo 03/08/2016 Tsh Ord6 hTSH II 2.21 uIU/mL 03/08/2016 Comp Metabolic Xly142 NA 139 mEq/L 06/15/2015 Comp Metabolic Ckh978 K 4.0 mEq/L 06/15/2015 Comp Metabolic Fsy168 CL 103 mEq/L 06/15/2015 Comp Metabolic Zwf870 CO2 28.0 mEq/L 06/15/2015 Comp Metabolic Mzk686 ANION GAP 12 06/15/2015 Comp Metabolic Wty255 GLUCOSE 79 mg/dL 06/15/2015 Comp Metabolic Ttv399 Creat 1.0 mg/dL 06/15/2015 Comp Metabolic Psb359 eGFR 74 ml/min/1.73m2 06/15/2015 Comp Metabolic Hkt132 BUN 15 mg/dL 06/15/2015 Comp Metabolic Zsi385 B/C Ratio 14.4 Ratio 06/15/2015 Comp Metabolic Btp967 CALCIUM 9.1 mg/dL 06/15/2015 Comp Metabolic Xbj389 ALK PHOS 30 U/L 06/15/2015 Comp Metabolic Wxv578 AST(SGOT) 20 U/L 06/15/2015 Comp Metabolic Xpq893 ALT(SGPT) 15 U/L 06/15/2015 Comp Metabolic Frd637 BILI T 1.0 mg/dL 06/15/2015 Comp Metabolic Njo662 ALBUMIN 4.0 g/dL 06/15/2015 Comp Metabolic Cvm683 TPRO 6.7 g/dL 06/15/2015 Comp Metabolic Vwf548 GLOB 2.7 g/dL 06/15/2015 Comp Metabolic Qlt744 A/G Ratio 1.5 Ratio 06/15/2015 Comp Metabolic Ldr094 Osmo 277 mOsmo 06/15/2015 Lipid Ord30 CHOL 189 mg/dL 06/15/2015 Lipid Ord30 HDL 44.0 mg/dl 06/15/2015 Lipid Ord30 TRIG 64 mg/dL 06/15/2015 Lipid Ord30 LDL 132 mg/dL 06/15/2015 Lipid Ord30 C/HDL 4.3 Ratio 06/15/2015 Cbc With Differential Ord2 WBC 3.93 K/ul 06/15/2015 Cbc With Differential Ord2 RBC 4.44 M/ul 06/15/2015 Cbc With Differential Ord2 HGB 13.3 g/dl 06/15/2015 Cbc With Differential Ord2 HCT 39.4 % 06/15/2015 Cbc With Differential Ord2 Neut% 45.9 % 06/15/2015 Cbc With Differential Ord2 MCV 88.7 fl 06/15/2015 Cbc With Differential Ord2 Lymph% 33.8 % 06/15/2015 Cbc With Differential Ord2 Grayson% 14.5 % 06/15/2015 Cbc With Differential Ord2 MCH 30.0 pg 06/15/2015 Cbc With Differential Ord2 MCHC 33.8 pg 06/15/2015 Cbc With Differential Ord2 Eos% 4.8 % 06/15/2015 Cbc With Differential Ord2 PLT 154 K/ul 06/15/2015 Cbc With Differential Ord2 Baso% 1.0 % 06/15/2015 Cbc With Differential Ord2 Neut ABS# 1.80 K/ul 06/15/2015 Cbc With Differential Ord2 RDW 13.8 % 06/15/2015 Cbc With Differential Ord2 Lymph ABS# 1.33 K/ul 06/15/2015 Cbc With Differential Ord2 Grayson ABS# 0.6 K/ul 06/15/2015 Cbc With Differential Ord2 Eos ABS# 0.2 K/ul 06/15/2015 Cbc With Differential Ord2 Baso ABS# 0.0 K/ul 06/15/2015 Cbc With Differential Ord2 New Analyzer Notice Please note new ref ranges starting 03-16-2015 due to implemntation of new five part differential hematolgy analyzer. 06/15/2015 Tsh Ord6 hTSH II 2.01 uIU/mL 06/15/2015 VIT D TOTL 1259598 VIT D TOTL 57 NG/ML 12/14/2013 CHEM 14 7359037 AST 18 U/L 12/14/2013 CHEM 14 4778355 ALT 14 IU/L 12/14/2013 CHEM 14 [id number] BUN 19 MG/DL 12/14/2013 CHEM 14 6187027 ALBUMIN 4.2 GM/DL 12/14/2013 CHEM 14 [id number] CHLORIDE 106 MMOL/L 12/14/2013 CHEM 14 5475813 BILI TOT 0.9 MG/DL 12/14/2013 CHEM 14 8746317 ALK PHOS 30 U/L 12/14/2013 CHEM 14 3225894 SODIUM 140 MMOL/L 12/14/2013 CHEM 14 6877436 CREATININE 1.10 MG/DL 12/14/2013 CHEM 14 [id number] CALCIUM 9.4 MG/DL 12/14/2013 CHEM 14 [id number] POTASSIUM 4.1 MMOL/L 12/14/2013 CHEM 14 5598932 PROT TOT 6.9 GM/DL 12/14/2013 CHEM 14 [id number] GLUCOSE 91 MG/DL 12/14/2013 CHEM 14 4916031 BICARB 30 MMOL/L 12/14/2013 CHEM 14 [id number] ANION GAP 4 MEQ/L 12/14/2013 LIPID GRP HDL TEST 56 MG/DL 12/14/2013 LIPID GRP TRIG 56 MG/DL 12/14/2013 LIPID GRP TEST LDL 138 MG/DL 12/14/2013 LIPID GRP CHOL 205 MG/DL 12/14/2013 LIPID GRP RCHOL/HDL 3.66 RATIO 12/14/2013 LIPID GRP NON-HDL CH 149 MG/DL 12/14/2013 CBC [id number] WBC 4.1 10e9/L 12/14/2013 CBC [id number] RBC 4.90 10e12/L 12/14/2013 CBC [id number] HGB 14.6 g/dL 12/14/2013 CBC [id number] HCT DET 42.2 % 12/14/2013 CBC [id number] MCV 86.1 fL 12/14/2013 CBC [id number] MCH 29.8 pg 12/14/2013 CBC [id number] MCHC 34.6 g/dL 12/14/2013 CBC [id number] PLT 166 10e9/L 12/14/2013 CBC [id number] MPV 9.0 fL 12/14/2013 CBC [id number] LAUREL % 52.6 % 12/14/2013 CBC [id number] LY % 31.6 % 12/14/2013 CBC [id number] MON % 11.9 % 12/14/2013 CBC [id number] EOS % 3.2 % 12/14/2013 CBC [id number] BASO % 0.7 % 12/14/2013 CBC [id number] RDW 13.6 % 12/14/2013 CBC [id number] ABS LAUREL 2.16 10e9/L 12/14/2013 CBC [id number] ABS LYMPH 1.30 10e9/L 12/14/2013 CBC [id number] ABS MONO 0.49 10e9/L 12/14/2013 CBC [id number] ABS EOS 0.13 10e9/L 12/14/2013 CBC [id number] ABS BASO 0.03 10e9/L 12/14/2013 CBC [id number] RDW-SD 41.7 fL 12/14/2013 GFR CALC [id number] GFR AA >60 ML/MIN 12/14/2013 GFR CALC [id number] GFR NON-AA >60 ML/MIN 12/14/2013 TSH [id number] TSH 2.444 uIU/ML 12/14/2013 CHEM 14 [id number] AST 20 U/L 12/22/2012 CHEM 14 [id number] ALT 18 IU/L 12/22/2012 CHEM 14 [id number] BUN 20 MG/DL 12/22/2012 CHEM 14 [id number] ALBUMIN 4.1 GM/DL 12/22/2012 CHEM 14 [id number] CHLORIDE 105 MMOL/L 12/22/2012 CHEM 14 [id number] BILI TOT 1.1 MG/DL 12/22/2012 CHEM 14 [id number] ALK PHOS 31 U/L 12/22/2012 CHEM 14 [id number] SODIUM 138 MMOL/L 12/22/2012 CHEM 14 [id number] CREATININE 1.07 MG/DL 12/22/2012 CHEM 14 [id number] CALCIUM 9.3 MG/DL 12/22/2012 CHEM 14 [id number] POTASSIUM 4.2 MMOL/L 12/22/2012 CHEM 14 [id number] PROT TOT 6.9 GM/DL 12/22/2012 CHEM 14 [id number] GLUCOSE 86 MG/DL 12/22/2012 CHEM 14 [id number] BICARB 30 MMOL/L 12/22/2012 CHEM 14 [id number] ANION GAP 3 MEQ/L 12/22/2012 TSH [id number] TSH 1.886 uIU/ML 12/22/2012 GFR CALC [id number] GFR AA >60 ML/MIN 12/22/2012 GFR CALC [id number] GFR NON-AA >60 ML/MIN 12/22/2012 LIPID GRP [id number] HDL TEST 48 MG/DL 12/22/2012 LIPID GRP [id number] TRIG 60 MG/DL 12/22/2012 LIPID GRP [id number] TEST LDL 121 MG/DL 12/22/2012 LIPID GRP CHOL 181 MG/DL 12/22/2012 LIPID GRP RCHOL/HDL 3.77 RATIO 12/22/2012 CBC [id number] WBC 4.1 10e9/L 12/22/2012 CBC [id number] RBC 4.67 10e12/L 12/22/2012 CBC [id number] HGB 14.1 g/dL 12/22/2012 CBC [id number] HCT DET 40.6 % 12/22/2012 CBC [id number] MCV 86.9 fL 12/22/2012 CBC [id number] MCH 30.2 pg 12/22/2012 CBC [id number] MCHC 34.7 g/dL 12/22/2012 CBC [id number] PLT 170 10e9/L 12/22/2012 CBC [id number] MPV 9.1 fL 12/22/2012 CBC [id number] LAUREL % 49.2 % 12/22/2012 CBC [id number] LY % 34.8 % 12/22/2012 CBC [id number] MON % 12.1 % 12/22/2012 CBC [id number] EOS % 3.4 % 12/22/2012 CBC [id number] BASO % 0.5 % 12/22/2012 CBC [id number] RDW 13.8 % 12/22/2012 CBC [id number] ABS LAUREL 2.02 10e9/L 12/22/2012 CBC [id number] ABS LYMPH 1.43 10e9/L 12/22/2012 CBC [id number] ABS MONO 0.50 10e9/L 12/22/2012 CBC [id number] ABS EOS 0.14 10e9/L 12/22/2012 CBC [id number] ABS BASO 0.02 10e9/L 12/22/2012 CBC [id number] RDW-SD 43.0 fL 12/22/2012 LIPID GRP HDL TEST 52 MG/DL 09/25/2011 LIPID GRP TRIG 48 MG/DL 09/25/2011 LIPID GRP TEST LDL 128 MG/DL 09/25/2011 LIPID GRP CHOL 190 MG/DL 09/25/2011 LIPID GRP RCHOL/HDL 3.65 RATIO 09/25/2011 TSH [id number] TSH 1.923 uIU/ML 09/25/2011 GFR CALC [id number] GFR AA >60 ML/MIN 09/25/2011 GFR CALC [id number] GFR NON-AA >60 ML/MIN 09/25/2011 CHEM 14 [id number] AST 16 U/L 09/25/2011 CHEM 14 [id number] ALT 12 IU/L 09/25/2011 CHEM 14 [id number] BUN 28 MG/DL 09/25/2011 CHEM 14 [id number] ALBUMIN 4.2 GM/DL 09/25/2011 CHEM 14 [id number] CHLORIDE 105 MMOL/L 09/25/2011 CHEM 14 [id number] BILI TOT 0.9 MG/DL 09/25/2011 CHEM 14 [id number] ALK PHOS 35 U/L 09/25/2011 CHEM 14 [id number] SODIUM 138 MMOL/L 09/25/2011 CHEM 14 [id number] CREATININE 1.02 MG/DL 09/25/2011 CHEM 14 [id number] CALCIUM 9.2 MG/DL 09/25/2011 CHEM 14 [id number] POTASSIUM 4.1 MMOL/L 09/25/2011 CHEM 14 [id number] PROT TOT 6.7 GM/DL 09/25/2011 CHEM 14 [id number] GLUCOSE 85 MG/DL 09/25/2011 CHEM 14 [id number] BICARB 29 MMOL/L 09/25/2011 CHEM 14 [id number] ANION GAP 4 MEQ/L 09/25/2011 CBC [id number] WBC 4.1 10e9/L 09/25/2011 CBC [id number] RBC 4.71 10e12/L 09/25/2011 CBC [id number] HGB 14.0 g/dL 09/25/2011 CBC [id number] HCT DET 40.3 % 09/25/2011 CBC [id number] MCV 85.6 fL 09/25/2011 CBC [id number] MCH 29.7 pg 09/25/2011 CBC [id number] MCHC 34.7 g/dL 09/25/2011 CBC [id number] PLT 148 10e9/L 09/25/2011 CBC [id number] MPV 9.1 fL 09/25/2011 CBC [id number] LAUREL % 48.6 % 09/25/2011 CBC [id number] LY % 36.6 % 09/25/2011 CBC [id number] MON % 11.2 % 09/25/2011 CBC [id number] EOS % 3.4 % 09/25/2011 CBC [id number] BASO % 0.2 % 09/25/2011 CBC [id number] RDW 13.2 % 09/25/2011 CBC [id number] ABS LAUREL 1.99 10e9/L 09/25/2011 CBC [id number] ABS LYMPH 1.50 10e9/L 09/25/2011 CBC [id number] ABS MONO 0.46 10e9/L 09/25/2011 CBC [id number] ABS EOS 0.14 10e9/L 09/25/2011 CBC [id number] ABS BASO 0.01 10e9/L 09/25/2011 CBC [id number] RDW-SD 40.9 fL 09/25/2011 Review of Systems System Result Effective Dates Constitutional No recent illness 2017 Constitutional No chills 01/01/2018 Eyes No vision change 01/01/2018 Cardiovascular hypertension 01/01/2018 Respiratory No cough 01/01/2018 Respiratory No dyspnea 01/01/2018 Gastrointestinal No abdominal pain 2017 Gastrointestinal No constipation 2017 Gastrointestinal No diarrhea 01/01/2018 Gastrointestinal No melena 01/01/2018 Gastrointestinal No nausea 01/01/2018 Gastrointestinal No vomiting 01/01/2018 Genitourinary/Nephrology No dysuria 01/01 Genitourinary/Nephrology No hematuria Musculoskeletal No stiffness 01/01/2018 Musculoskeletal No swelling 01/01/2018 Musculoskeletal No muscle weakness 2017 Musculoskeletal neck pain 01/01/2018 Dermatologic No rash 01/01/2018 Dermatologic No scar 01/01/2018 Neurologic dyskinesia or tremor 2017 Constitutional No diaphoresis 01/01/2018 Constitutional No fever 01/01/2018 Ears/Nose/Throat/Neck No nasal discharge 01/01/2018 Ears/Nose/Throat/Neck No nasal allergies 01/01/2018 Cardiovascular No chest pain/pressure Cardiovascular No dyspnea 01/01/2018 Neurologic No alteration of consciousness 01/01/2018 Neurologic No mental status change 2017 Ears/Nose/Throat/Neck No dental pain 11/2017 Ears/Nose/Throat/Neck No dizziness 2017 Ears/Nose/Throat/Neck No dysphagia 2017 Ears/Nose/Throat/Neck No headache 2017 Ears/Nose/Throat/Neck No hearing loss 11/2017 Ears/Nose/Throat/Neck No nasal allergies 12/10/2017 Ears/Nose/Throat/Neck No nasal discharge 12/10/2017 Ears/Nose/Throat/Neck No postnasal drip 12/10/2017 Ears/Nose/Throat/Neck No sinus congestion 12/10/2017 Ears/Nose/Throat/Neck No sore throat 11/2017 Ears/Nose/Throat/Neck cerumen 12/10/2017 Ears/Nose/Throat/Neck neck pain 2017 Constitutional No recent illness 2017 Constitutional No chills 12/10/2017 Constitutional No fatigue 12/10/2017 Constitutional No fever 12/10/2017 Constitutional No insomnia 12/10/2017 Constitutional No malaise 12/10/2017 Eyes No vision change 12/10/2017 Cardiovascular hypertension 12/10/2017 Respiratory No cough 12/10/2017 Respiratory No dyspnea 12/10/2017 Gastrointestinal No abdominal pain 2017 Gastrointestinal No constipation 2017 Gastrointestinal No diarrhea 12/10/2017 Gastrointestinal No melena 12/10/2017 Gastrointestinal No nausea 12/10/2017 Gastrointestinal No vomiting 12/10/2017 Genitourinary/Nephrology No dysuria 12/10 Genitourinary/Nephrology No hematuria 11/2017 Musculoskeletal No stiffness 12/10/2017 Musculoskeletal No swelling 12/10/2017 Musculoskeletal No muscle weakness 2017 Dermatologic No rash 12/10/2017 Dermatologic No scar 12/10/2017 Neurologic dyskinesia or tremor 2017 Psychiatric anxiety 12/10/2017 Psychiatric depression 12/10/2017 Musculoskeletal neck pain 12/10/2017 Constitutional No recent illness 2017 Constitutional No chills 11/05/2017 Constitutional No fatigue 11/05/2017 Constitutional No fever 11/05/2017 Constitutional No insomnia 11/05/2017 Constitutional No malaise 11/05/2017 Eyes No vision change 11/05/2017 Cardiovascular hypertension 11/05/2017 Respiratory No cough 11/05/2017 Respiratory No dyspnea 11/05/2017 Gastrointestinal No abdominal pain 2017 Gastrointestinal No constipation 2017 Gastrointestinal No diarrhea 11/05/2017 Gastrointestinal gastroesophageal reflux 11/05/2017 Gastrointestinal No melena 11/05/2017 Gastrointestinal No nausea 11/05/2017 Gastrointestinal No vomiting 11/05/2017 Genitourinary/Nephrology No dysuria 11/05 Genitourinary/Nephrology No hematuria 06/2017 Musculoskeletal No stiffness 11/05/2017 Musculoskeletal No swelling 11/05/2017 Musculoskeletal No muscle weakness 2017 Musculoskeletal No myalgias 11/05/2017 Dermatologic No rash 11/05/2017 Dermatologic No scar 11/05/2017 Neurologic dyskinesia or tremor 2017 Psychiatric anxiety 11/05/2017 Psychiatric depression 11/05/2017 Constitutional No recent illness 2017 Constitutional No chills 10/21/2017 Constitutional No fatigue 10/21/2017 Constitutional No fever 10/21/2017 Constitutional No insomnia 10/21/2017 Constitutional No malaise 10/21/2017 Eyes No vision change 10/21/2017 Cardiovascular hypertension 10/21/2017 Respiratory No cough 10/21/2017 Respiratory No dyspnea 10/21/2017 Gastrointestinal No abdominal pain 2017 Gastrointestinal No constipation 2017 Gastrointestinal No diarrhea 10/21/2017 Gastrointestinal gastroesophageal reflux 10/21/2017 Gastrointestinal No melena 10/21/2017 Gastrointestinal No nausea 10/21/2017 Gastrointestinal No vomiting 10/21/2017 Genitourinary/Nephrology No dysuria 10/21 Genitourinary/Nephrology No hematuria Genitourinary/Nephrology impotence 2017 Musculoskeletal No stiffness 10/21/2017 Musculoskeletal No swelling 10/21/2017 Musculoskeletal No muscle weakness 2017 Musculoskeletal No myalgias 10/21/2017 Dermatologic No rash 10/21/2017 Dermatologic No scar 10/21/2017 Neurologic dyskinesia or tremor 2017 Psychiatric anxiety 10/21/2017 Psychiatric depression 10/21/2017 Musculoskeletal joint complaint 2017 Neurologic neck pain 10/21/2017 Constitutional recent illness 10/18/2017 Constitutional anorexia 10/18/2017 Constitutional night sweats 10/18/2017 Constitutional chills 10/18/2017 Constitutional No diaphoresis 10/18/2017 Constitutional fatigue 10/18/2017 Constitutional fever 10/18/2017 Constitutional No insomnia 10/18/2017 Constitutional No malaise 10/18/2017 Constitutional No weight loss 10/18/2017 Constitutional No weight gain 10/18/2017 Eyes No eye discharge 10/18/2017 Eyes No eye erythema 10/18/2017 Ears/Nose/Throat/Neck No dizziness 2017 Cardiovascular No chest pain/pressure Cardiovascular No dyspnea 10/18/2017 Cardiovascular No edema 10/18/2017 Respiratory No productive sputum 2017 Respiratory No cough 10/18/2017 Gastrointestinal No abdominal pain 2017 Gastrointestinal No constipation 2017 Gastrointestinal No diarrhea 10/18/2017 Gastrointestinal gastroesophageal reflux 10/18/2017 Gastrointestinal gas and bloating 2017 Genitourinary/Nephrology No dysuria 10/18 Musculoskeletal joint complaint 2017 Dermatologic No rash 10/18/2017 Neurologic neck pain 10/18/2017 Constitutional No recent illness 2017 Constitutional No chills 09/10/2017 Constitutional No fatigue 09/10/2017 Constitutional No fever 09/10/2017 Constitutional No insomnia 09/10/2017 Constitutional No malaise 09/10/2017 Eyes No vision change 09/10/2017 Cardiovascular hypertension 09/10/2017 Respiratory No cough 09/10/2017 Respiratory No dyspnea 09/10/2017 Gastrointestinal No abdominal pain 2017 Gastrointestinal No constipation 2017 Gastrointestinal No diarrhea 09/10/2017 Gastrointestinal gastroesophageal reflux 09/10/2017 Gastrointestinal No melena 09/10/2017 Gastrointestinal No nausea 09/10/2017 Gastrointestinal No vomiting 09/10/2017 Genitourinary/Nephrology No dysuria 09/10 Genitourinary/Nephrology No hematuria 12/2017 Genitourinary/Nephrology impotence 2017 Musculoskeletal No stiffness 09/10/2017 Musculoskeletal No swelling 09/10/2017 Musculoskeletal No muscle weakness 2017 Musculoskeletal No myalgias 09/10/2017 Dermatologic No rash 09/10/2017 Dermatologic No scar 09/10/2017 Psychiatric anxiety 09/10/2017 Psychiatric depression 09/10/2017 Neurologic dyskinesia or tremor 2017 Constitutional No recent illness 2017 Constitutional No chills 08/01/2017 Constitutional No diaphoresis 08/01/2017 Constitutional No fever 08/01/2017 Eyes No eye erythema 08/01/2017 Ears/Nose/Throat/Neck No nasal discharge 08/01/2017 Cardiovascular No chest pain/pressure Cardiovascular No dyspnea 08/01/2017 Respiratory No cough 08/01/2017 Respiratory No dyspnea 08/01/2017 Neurologic No alteration of consciousness 08/01/2017 Neurologic No mental status change 2017 Constitutional No recent illness 2017 Constitutional No chills 03/14/2017 Constitutional No fatigue 03/14/2017 Constitutional No fever 03/14/2017 Constitutional No insomnia 03/14/2017 Constitutional No malaise 03/14/2017 Eyes No vision change 03/14/2017 Cardiovascular hypertension 03/14/2017 Respiratory No cough 03/14/2017 Respiratory No dyspnea 03/14/2017 Gastrointestinal No abdominal pain 2017 Gastrointestinal No constipation 2017 Gastrointestinal No diarrhea 03/14/2017 Gastrointestinal gastroesophageal reflux 03/14/2017 Gastrointestinal No melena 03/14/2017 Gastrointestinal No nausea 03/14/2017 Gastrointestinal No vomiting 03/14/2017 Genitourinary/Nephrology No dysuria 03/14 Genitourinary/Nephrology No hematuria 01/2018 Genitourinary/Nephrology impotence 2017 Musculoskeletal No stiffness 03/14/2017 Musculoskeletal No swelling 03/14/2017 Musculoskeletal No muscle weakness 2017 Musculoskeletal No myalgias 03/14/2017 Dermatologic No rash 03/14/2017 Dermatologic No scar 03/14/2017 Psychiatric anxiety 03/14/2017 Psychiatric depression 03/14/2017 Constitutional No recent illness 2016 Constitutional No chills 09/11/2016 Constitutional No fatigue 09/11/2016 Constitutional No fever 09/11/2016 Constitutional No insomnia 09/11/2016 Constitutional No malaise 09/11/2016 Eyes No vision change 09/11/2016 Cardiovascular hypertension 09/11/2016 Respiratory No cough 09/11/2016 Respiratory No dyspnea 09/11/2016 Gastrointestinal No abdominal pain 2016 Gastrointestinal No constipation 2016 Gastrointestinal No diarrhea 09/11/2016 Gastrointestinal gastroesophageal reflux 09/11/2016 Gastrointestinal No melena 09/11/2016 Gastrointestinal No nausea 09/11/2016 Gastrointestinal No vomiting 09/11/2016 Genitourinary/Nephrology No dysuria 09/11 Genitourinary/Nephrology No hematuria 01/2017 Genitourinary/Nephrology impotence 2016 Musculoskeletal No stiffness 09/11/2016 Musculoskeletal No swelling 09/11/2016 Musculoskeletal No muscle weakness 2016 Musculoskeletal No myalgias 09/11/2016 Dermatologic No rash 09/11/2016 Dermatologic No scar 09/11/2016 Psychiatric anxiety 09/11/2016 Psychiatric depression 09/11/2016 Constitutional No recent illness 2016 Constitutional No chills 03/07/2016 Constitutional No fatigue 03/07/2016 Constitutional No fever 03/07/2016 Constitutional No insomnia 03/07/2016 Constitutional No malaise 03/07/2016 Eyes No vision change 03/07/2016 Cardiovascular hypertension 03/07/2016 Respiratory No cough 03/07/2016 Respiratory No dyspnea 03/07/2016 Gastrointestinal No abdominal pain 2016 Gastrointestinal No constipation 2016 Gastrointestinal No diarrhea 03/07/2016 Gastrointestinal gastroesophageal reflux 03/07/2016 Gastrointestinal No melena 03/07/2016 Gastrointestinal No nausea 03/07/2016 Gastrointestinal No vomiting 03/07/2016 Genitourinary/Nephrology No dysuria 03/07 Genitourinary/Nephrology No hematuria 06/2016 Genitourinary/Nephrology impotence 2016 Musculoskeletal No stiffness 03/07/2016 Musculoskeletal No swelling 03/07/2016 Musculoskeletal No muscle weakness 2016 Musculoskeletal No myalgias 03/07/2016 Dermatologic No rash 03/07/2016 Dermatologic No scar 03/07/2016 Psychiatric anxiety 03/07/2016 Psychiatric depression 03/07/2016 Constitutional No recent illness 2015 Constitutional No chills 01/23/2016 Constitutional No fever 01/23/2016 Respiratory No cough 01/23/2016 Respiratory No dyspnea 01/23/2016 Gastrointestinal No abdominal pain 2015 Gastrointestinal No constipation 2015 Gastrointestinal No diarrhea 01/23/2016 Gastrointestinal No nausea 01/23/2016 Gastrointestinal No vomiting 01/23/2016 Dermatologic No rash 01/23/2016 Constitutional No diaphoresis 01/23/2016 Eyes No eye erythema 01/23/2016 Ears/Nose/Throat/Neck No nasal discharge 01/23/2016 Ears/Nose/Throat/Neck No nasal allergies 01/23/2016 Cardiovascular No dyspnea 01/23/2016 Cardiovascular No chest pain/pressure Respiratory No chest congestion 2015 Musculoskeletal No joint complaint 2015 Neurologic No alteration of consciousness 01/23/2016 Neurologic No mental status change 2015 Constitutional No recent illness 2015 Constitutional No chills 11/09/2015 Constitutional No fatigue 11/09/2015 Constitutional No fever 11/09/2015 Constitutional No insomnia 11/09/2015 Constitutional No malaise 11/09/2015 Eyes No vision change 11/09/2015 Cardiovascular hypertension 11/09/2015 Respiratory No cough 11/09/2015 Respiratory No dyspnea 11/09/2015 Gastrointestinal No abdominal pain 2015 Gastrointestinal No constipation 2015 Gastrointestinal No diarrhea 11/09/2015 Gastrointestinal gastroesophageal reflux 11/09/2015 Gastrointestinal No melena 11/09/2015 Gastrointestinal No nausea 11/09/2015 Gastrointestinal No vomiting 11/09/2015 Genitourinary/Nephrology No dysuria 11/08 Genitourinary/Nephrology No hematuria 09/2015 Genitourinary/Nephrology impotence 2015 Musculoskeletal No stiffness 11/09/2015 Musculoskeletal No swelling 11/09/2015 Musculoskeletal No muscle weakness 2015 Musculoskeletal No myalgias 11/09/2015 Dermatologic No rash 11/09/2015 Dermatologic No scar 11/09/2015 Psychiatric anxiety 11/09/2015 Psychiatric depression 11/09/2015 Constitutional No recent illness 2015 Constitutional No chills 08/09/2015 Constitutional No fatigue 08/09/2015 Constitutional No fever 08/09/2015 Constitutional No insomnia 08/09/2015 Constitutional No malaise 08/09/2015 Eyes No blindness 08/09/2015 Eyes No vision change 08/09/2015 Cardiovascular hypertension 08/09/2015 Respiratory No chest tightness 2015 Respiratory No cigarette smoking 2015 Respiratory No cough 08/09/2015 Respiratory No dyspnea 08/09/2015 Respiratory No pedal edema 08/09/2015 Respiratory No snoring 08/09/2015 Respiratory No wheezing 08/09/2015 Gastrointestinal No hemorrhoids 2015 Gastrointestinal No abdominal pain 2015 Gastrointestinal No constipation 2015 Gastrointestinal No diarrhea 08/09/2015 Gastrointestinal gastroesophageal reflux 08/09/2015 Gastrointestinal No melena 08/09/2015 Gastrointestinal No nausea 08/09/2015 Gastrointestinal No vomiting 08/09/2015 Genitourinary/Nephrology No dysuria 08/08 Genitourinary/Nephrology No hematuria 09/2015 Genitourinary/Nephrology impotence 2015 Musculoskeletal No stiffness 08/09/2015 Musculoskeletal No swelling 08/09/2015 Musculoskeletal No muscle weakness 2015 Musculoskeletal No myalgias 08/09/2015 Dermatologic No rash 08/09/2015 Dermatologic No scar 08/09/2015 Psychiatric anxiety 08/09/2015 Psychiatric depression 08/09/2015 Constitutional No recent illness 2015 Constitutional No chills 07/04/2015 Constitutional No fatigue 07/04/2015 Constitutional No fever 07/04/2015 Constitutional No insomnia 07/04/2015 Constitutional No malaise 07/04/2015 Eyes No blindness 07/04/2015 Eyes No vision change 07/04/2015 Cardiovascular hypertension 07/04/2015 Respiratory No chest tightness 2015 Respiratory No cigarette smoking 2015 Respiratory No cough 07/04/2015 Respiratory No dyspnea 07/04/2015 Respiratory No pedal edema 07/04/2015 Respiratory No snoring 07/04/2015 Respiratory No wheezing 07/04/2015 Gastrointestinal No hemorrhoids 2015 Gastrointestinal No abdominal pain 2015 Gastrointestinal No constipation 2015 Gastrointestinal No diarrhea 07/04/2015 Gastrointestinal gastroesophageal reflux 07/04/2015 Gastrointestinal No melena 07/04/2015 Gastrointestinal No nausea 07/04/2015 Gastrointestinal No vomiting 07/04/2015 Genitourinary/Nephrology No dysuria 07/03 Genitourinary/Nephrology No hematuria 04/2015 Genitourinary/Nephrology impotence 2015 Musculoskeletal No stiffness 07/04/2015 Musculoskeletal No swelling 07/04/2015 Musculoskeletal No muscle weakness 2015 Musculoskeletal No myalgias 07/04/2015 Dermatologic No rash 07/04/2015 Dermatologic No scar 07/04/2015 Psychiatric anxiety 07/04/2015 Psychiatric depression 07/04/2015 Constitutional No recent illness 2015 Constitutional No chills 06/14/2015 Constitutional No fatigue 06/14/2015 Constitutional No fever 06/14/2015 Constitutional No insomnia 06/14/2015 Constitutional No malaise 06/14/2015 Eyes No blindness 06/14/2015 Eyes No vision change 06/14/2015 Cardiovascular hypertension 06/14/2015 Respiratory No chest tightness 2015 Respiratory No cigarette smoking 2015 Respiratory No cough 06/14/2015 Respiratory No dyspnea 06/14/2015 Respiratory No pedal edema 06/14/2015 Respiratory No snoring 06/14/2015 Respiratory No wheezing 06/14/2015 Gastrointestinal No hemorrhoids 2015 Gastrointestinal No abdominal pain 2015 Gastrointestinal No constipation 2015 Gastrointestinal No diarrhea 06/14/2015 Gastrointestinal gastroesophageal reflux 06/14/2015 Gastrointestinal No melena 06/14/2015 Gastrointestinal No nausea 06/14/2015 Gastrointestinal No vomiting 06/14/2015 Genitourinary/Nephrology No dysuria 06/13 Genitourinary/Nephrology No hematuria 02/2016 Genitourinary/Nephrology impotence 2015 Musculoskeletal No stiffness 06/14/2015 Musculoskeletal No swelling 06/14/2015 Musculoskeletal No muscle weakness 2015 Musculoskeletal No myalgias 06/14/2015 Dermatologic No rash 06/14/2015 Dermatologic No scar 06/14/2015 Psychiatric anxiety 06/14/2015 Psychiatric depression 06/14/2015 Constitutional No recent illness 2015 Constitutional No chills 03/14/2015 Constitutional No fatigue 03/14/2015 Constitutional No fever 03/14/2015 Constitutional No insomnia 03/14/2015 Constitutional No malaise 03/14/2015 Eyes No blindness 03/14/2015 Eyes No vision change 03/14/2015 Cardiovascular hypertension 03/14/2015 Respiratory No chest tightness 2015 Respiratory No cigarette smoking 2015 Respiratory No cough 03/14/2015 Respiratory No dyspnea 03/14/2015 Respiratory No pedal edema 03/14/2015 Respiratory No snoring 03/14/2015 Respiratory No wheezing 03/14/2015 Gastrointestinal No hemorrhoids 2015 Gastrointestinal No abdominal pain 2015 Gastrointestinal No constipation 2015 Gastrointestinal No diarrhea 03/14/2015 Gastrointestinal No gastroesophageal reflux 03/14/2015 Gastrointestinal No melena 03/14/2015 Gastrointestinal No nausea 03/14/2015 Gastrointestinal No vomiting 03/14/2015 Genitourinary/Nephrology No dysuria 03/14 Genitourinary/Nephrology No hematuria 01/2016 Genitourinary/Nephrology impotence 2015 Musculoskeletal No stiffness 03/14/2015 Musculoskeletal No swelling 03/14/2015 Musculoskeletal No muscle weakness 2015 Musculoskeletal No myalgias 03/14/2015 Dermatologic No rash 03/14/2015 Dermatologic No scar 03/14/2015 Psychiatric anxiety 03/14/2015 Psychiatric depression 03/14/2015 Constitutional No recent illness 2014 Constitutional No chills 12/13/2014 Constitutional No fatigue 12/13/2014 Constitutional No fever 12/13/2014 Constitutional No insomnia 12/13/2014 Constitutional No malaise 12/13/2014 Eyes No blindness 12/13/2014 Eyes No vision change 12/13/2014 Cardiovascular hypertension 12/13/2014 Respiratory No chest tightness 2014 Respiratory No cigarette smoking 2014 Respiratory No cough 12/13/2014 Respiratory No dyspnea 12/13/2014 Respiratory No pedal edema 12/13/2014 Respiratory No snoring 12/13/2014 Respiratory No wheezing 12/13/2014 Gastrointestinal No hemorrhoids 2014 Gastrointestinal No abdominal pain 2014 Gastrointestinal No constipation 2014 Gastrointestinal No diarrhea 12/13/2014 Gastrointestinal No gastroesophageal reflux 12/13/2014 Gastrointestinal No melena 12/13/2014 Gastrointestinal No nausea 12/13/2014 Gastrointestinal No vomiting 12/13/2014 Genitourinary/Nephrology No dysuria 12/13 Genitourinary/Nephrology No hematuria 02/2015 Genitourinary/Nephrology impotence 2014 Musculoskeletal No stiffness 12/13/2014 Musculoskeletal No swelling 12/13/2014 Musculoskeletal No muscle weakness 2014 Musculoskeletal No myalgias 12/13/2014 Dermatologic No rash 12/13/2014 Dermatologic No scar 12/13/2014 Psychiatric anxiety 12/13/2014 Psychiatric depression 12/13/2014 Constitutional No recent illness 2014 Constitutional No chills 11/16/2014 Constitutional No fatigue 11/16/2014 Constitutional No fever 11/16/2014 Constitutional No insomnia 11/16/2014 Constitutional No malaise 11/16/2014 Cardiovascular hypertension 11/16/2014 Respiratory No chest tightness 2014 Respiratory No cigarette smoking 2014 Respiratory No cough 11/16/2014 Respiratory No dyspnea 11/16/2014 Respiratory No pedal edema 11/16/2014 Respiratory No snoring 11/16/2014 Respiratory No wheezing 11/16/2014 Gastrointestinal No hemorrhoids 2014 Gastrointestinal No abdominal pain 2014 Gastrointestinal No constipation 2014 Gastrointestinal No diarrhea 11/16/2014 Gastrointestinal No gastroesophageal reflux 11/16/2014 Gastrointestinal No melena 11/16/2014 Gastrointestinal No nausea 11/16/2014 Gastrointestinal No vomiting 11/16/2014 Genitourinary/Nephrology No dysuria 11/16 Genitourinary/Nephrology No hematuria Genitourinary/Nephrology impotence 2014 Musculoskeletal No stiffness 11/16/2014 Musculoskeletal No swelling 11/16/2014 Musculoskeletal No muscle weakness 2014 Musculoskeletal No myalgias 11/16/2014 Dermatologic No rash 11/16/2014 Dermatologic No scar 11/16/2014 Psychiatric anxiety 11/16/2014 Psychiatric depression 11/16/2014 Eyes No blindness 11/16/2014 Eyes No vision change 11/16/2014 Constitutional No recent illness 2014 Constitutional No chills 09/09/2014 Constitutional No fatigue 09/09/2014 Constitutional No fever 09/09/2014 Constitutional No insomnia 09/09/2014 Constitutional No malaise 09/09/2014 Respiratory No chest tightness 2014 Respiratory No cigarette smoking 2014 Respiratory No cough 09/09/2014 Respiratory No dyspnea 09/09/2014 Respiratory No pedal edema 09/09/2014 Respiratory No snoring 09/09/2014 Respiratory No wheezing 09/09/2014 Gastrointestinal No hemorrhoids 2014 Gastrointestinal No abdominal pain 2014 Gastrointestinal No constipation 2014 Gastrointestinal No diarrhea 09/09/2014 Gastrointestinal No gastroesophageal reflux 09/09/2014 Gastrointestinal No melena 09/09/2014 Gastrointestinal No nausea 09/09/2014 Gastrointestinal No vomiting 09/09/2014 Genitourinary/Nephrology No dysuria 09/09 Genitourinary/Nephrology No hematuria 11/2014 Genitourinary/Nephrology impotence 2014 Musculoskeletal No stiffness 09/09/2014 Musculoskeletal No swelling 09/09/2014 Musculoskeletal No muscle weakness 2014 Musculoskeletal No myalgias 09/09/2014 Dermatologic No rash 09/09/2014 Dermatologic No scar 09/09/2014 Psychiatric anxiety 09/09/2014 Psychiatric depression 09/09/2014 Cardiovascular hypertension 09/09/2014 Constitutional No recent illness 2014 Constitutional No chills 08/25/2014 Constitutional No fatigue 08/25/2014 Constitutional No fever 08/25/2014 Constitutional No malaise 08/25/2014 Eyes No blindness 08/25/2014 Eyes No vision change 08/25/2014 Ears/Nose/Throat/Neck No dental pain Ears/Nose/Throat/Neck No dizziness 2014 Ears/Nose/Throat/Neck No dysphagia 2014 Ears/Nose/Throat/Neck No headache 2014 Ears/Nose/Throat/Neck No hearing loss Ears/Nose/Throat/Neck No nasal allergies 08/25/2014 Ears/Nose/Throat/Neck No sore throat Ears/Nose/Throat/Neck No postnasal drip 08/25/2014 Ears/Nose/Throat/Neck No sinus congestion 08/25/2014 Cardiovascular No chest pain/pressure Cardiovascular No fatigue 08/25/2014 Cardiovascular hypertension 08/25/2014 Respiratory No chest tightness 2014 Respiratory No cigarette smoking 2014 Respiratory No cough 08/25/2014 Respiratory No dyspnea 08/25/2014 Respiratory No pedal edema 08/25/2014 Respiratory No snoring 08/25/2014 Respiratory No wheezing 08/25/2014 Gastrointestinal No hemorrhoids 2014 Gastrointestinal No constipation 2014 Gastrointestinal No diarrhea 08/25/2014 Gastrointestinal dyspepsia 08/25/2014 Gastrointestinal gastroesophageal reflux 08/25/2014 Gastrointestinal No melena 08/25/2014 Gastrointestinal nausea 08/25/2014 Gastrointestinal No vomiting 08/25/2014 Genitourinary/Nephrology No dysuria 08/25 Genitourinary/Nephrology No hematuria Genitourinary/Nephrology impotence 2014 Musculoskeletal No stiffness 08/25/2014 Musculoskeletal No swelling 08/25/2014 Musculoskeletal No muscle weakness 2014 Musculoskeletal No myalgias 08/25/2014 Dermatologic No rash 08/25/2014 Dermatologic No scar 08/25/2014 Psychiatric No anxiety 08/25/2014 Psychiatric No depression 08/25/2014 Constitutional No recent illness 2014 Constitutional No chills 06/10/2014 Constitutional No fatigue 06/10/2014 Constitutional No fever 06/10/2014 Constitutional insomnia 06/10/2014 Constitutional No malaise 06/10/2014 Eyes No blindness 06/10/2014 Eyes No vision change 06/10/2014 Ears/Nose/Throat/Neck No dental pain 11/2014 Ears/Nose/Throat/Neck No dizziness 2014 Ears/Nose/Throat/Neck No dysphagia 2014 Ears/Nose/Throat/Neck No headache 2014 Ears/Nose/Throat/Neck No hearing loss 11/2014 Ears/Nose/Throat/Neck No nasal allergies 06/10/2014 Ears/Nose/Throat/Neck No sore throat 11/2014 Ears/Nose/Throat/Neck No postnasal drip 06/10/2014 Ears/Nose/Throat/Neck No sinus congestion 06/10/2014 Cardiovascular No chest pain/pressure 11/2014 Respiratory No chest tightness 2014 Respiratory No cigarette smoking 2014 Respiratory No cough 06/10/2014 Respiratory No dyspnea 06/10/2014 Respiratory No pedal edema 06/10/2014 Respiratory No snoring 06/10/2014 Respiratory No wheezing 06/10/2014 Gastrointestinal No hemorrhoids 2014 Gastrointestinal No constipation 2014 Gastrointestinal No diarrhea 06/10/2014 Gastrointestinal dyspepsia 06/10/2014 Gastrointestinal gastroesophageal reflux 06/10/2014 Gastrointestinal No melena 06/10/2014 Gastrointestinal nausea 06/10/2014 Gastrointestinal No vomiting 06/10/2014 Genitourinary/Nephrology No dysuria 06/10 Genitourinary/Nephrology No hematuria 11/2014 Genitourinary/Nephrology impotence 2014 Musculoskeletal No stiffness 06/10/2014 Musculoskeletal No swelling 06/10/2014 Musculoskeletal No muscle weakness 2014 Musculoskeletal No myalgias 06/10/2014 Dermatologic No rash 06/10/2014 Dermatologic No scar 06/10/2014 Psychiatric No anxiety 06/10/2014 Psychiatric No depression 06/10/2014 Cardiovascular hypertension 06/10/2014 Cardiovascular No fatigue 06/10/2014 Constitutional insomnia 12/03/2013 Cardiovascular No chest pain/pressure 04/2013 Respiratory No dyspnea 12/03/2013 Gastrointestinal No constipation 2013 Gastrointestinal No diarrhea 12/03/2013 Constitutional No recent illness 2013 Constitutional No chills 12/03/2013 Constitutional No fatigue 12/03/2013 Constitutional No fever 12/03/2013 Constitutional No malaise 12/03/2013 Eyes No blindness 12/03/2013 Eyes No vision change 12/03/2013 Ears/Nose/Throat/Neck No dental pain 04/2013 Ears/Nose/Throat/Neck No dizziness 2013 Ears/Nose/Throat/Neck No dysphagia 2013 Ears/Nose/Throat/Neck No headache 2013 Ears/Nose/Throat/Neck No hearing loss 04/2013 Ears/Nose/Throat/Neck No nasal allergies 12/03/2013 Ears/Nose/Throat/Neck No sore throat 04/2013 Ears/Nose/Throat/Neck No postnasal drip 12/03/2013 Ears/Nose/Throat/Neck No sinus congestion 12/03/2013 Respiratory No chest tightness 2013 Respiratory No cigarette smoking 2013 Respiratory No cough 12/03/2013 Respiratory No pedal edema 12/03/2013 Respiratory No snoring 12/03/2013 Respiratory No wheezing 12/03/2013 Gastrointestinal No hemorrhoids 2013 Gastrointestinal dyspepsia 12/03/2013 Gastrointestinal gastroesophageal reflux 12/03/2013 Gastrointestinal No melena 12/03/2013 Gastrointestinal nausea 12/03/2013 Gastrointestinal No vomiting 12/03/2013 Genitourinary/Nephrology No dysuria 12/03 Genitourinary/Nephrology No hematuria 04/2013 Genitourinary/Nephrology impotence 2013 Musculoskeletal No stiffness 12/03/2013 Musculoskeletal No swelling 12/03/2013 Musculoskeletal No muscle weakness 2013 Musculoskeletal No myalgias 12/03/2013 Dermatologic No rash 12/03/2013 Dermatologic No scar 12/03/2013 Psychiatric No anxiety 12/03/2013 Psychiatric No depression 12/03/2013 Constitutional No recent illness 2013 Constitutional No chills 05/25/2013 Constitutional No fatigue 05/25/2013 Constitutional No fever 05/25/2013 Constitutional No insomnia 05/25/2013 Constitutional No malaise 05/25/2013 Eyes No blindness 05/25/2013 Eyes No vision change 05/25/2013 Ears/Nose/Throat/Neck No dental pain Ears/Nose/Throat/Neck No dizziness 2013 Ears/Nose/Throat/Neck No dysphagia 2013 Ears/Nose/Throat/Neck No headache 2013 Ears/Nose/Throat/Neck No hearing loss Ears/Nose/Throat/Neck No nasal allergies 05/25/2013 Ears/Nose/Throat/Neck No sore throat Ears/Nose/Throat/Neck No postnasal drip 05/25/2013 Ears/Nose/Throat/Neck No sinus congestion 05/25/2013 Respiratory No chest tightness 2013 Respiratory No cigarette smoking 2013 Respiratory No cough 05/25/2013 Respiratory No dyspnea 05/25/2013 Respiratory No pedal edema 05/25/2013 Respiratory No snoring 05/25/2013 Respiratory No wheezing 05/25/2013 Gastrointestinal No hemorrhoids 2013 Gastrointestinal No constipation 2013 Gastrointestinal No diarrhea 05/25/2013 Gastrointestinal dyspepsia 05/25/2013 Gastrointestinal gastroesophageal reflux 05/25/2013 Gastrointestinal No melena 05/25/2013 Gastrointestinal nausea 05/25/2013 Gastrointestinal No vomiting 05/25/2013 Genitourinary/Nephrology No dysuria 05/25 Genitourinary/Nephrology No hematuria Genitourinary/Nephrology impotence 2013 Musculoskeletal No stiffness 05/25/2013 Musculoskeletal No swelling 05/25/2013 Musculoskeletal No muscle weakness 2013 Musculoskeletal No myalgias 05/25/2013 Dermatologic No rash 05/25/2013 Dermatologic No scar 05/25/2013 Psychiatric No anxiety 05/25/2013 Psychiatric No depression 05/25/2013 Constitutional No recent illness 2012 Constitutional No chills 11/24/2012 Constitutional No fatigue 11/24/2012 Constitutional No fever 11/24/2012 Constitutional No insomnia 11/24/2012 Constitutional No malaise 11/24/2012 Respiratory No chest tightness 2012 Respiratory No cigarette smoking 2012 Respiratory No cough 11/24/2012 Respiratory No dyspnea 11/24/2012 Respiratory No pedal edema 11/24/2012 Respiratory No snoring 11/24/2012 Respiratory No wheezing 11/24/2012 Gastrointestinal No hemorrhoids 2012 Gastrointestinal No constipation 2012 Gastrointestinal No diarrhea 11/24/2012 Gastrointestinal gastroesophageal reflux 11/24/2012 Gastrointestinal No melena 11/24/2012 Gastrointestinal nausea 11/24/2012 Gastrointestinal No vomiting 11/24/2012 Genitourinary/Nephrology No dysuria 11/24 Genitourinary/Nephrology No hematuria Genitourinary/Nephrology impotence 2012 Musculoskeletal No stiffness 11/24/2012 Musculoskeletal No swelling 11/24/2012 Musculoskeletal No muscle weakness 2012 Musculoskeletal No myalgias 11/24/2012 Dermatologic No rash 11/24/2012 Dermatologic No scar 11/24/2012 Psychiatric No anxiety 11/24/2012 Psychiatric No depression 11/24/2012 Gastrointestinal dyspepsia 11/24/2012 Ears/Nose/Throat/Neck No dental pain Ears/Nose/Throat/Neck No dizziness 2012 Ears/Nose/Throat/Neck No dysphagia 2012 Ears/Nose/Throat/Neck No headache 2012 Ears/Nose/Throat/Neck No hearing loss Ears/Nose/Throat/Neck No nasal allergies 11/24/2012 Ears/Nose/Throat/Neck No sore throat Ears/Nose/Throat/Neck No postnasal drip 11/24/2012 Ears/Nose/Throat/Neck No sinus congestion 11/24/2012 Eyes No blindness 11/24/2012 Eyes No vision change 11/24/2012 Constitutional No recent illness 2012 Constitutional No chills 05/26/2012 Constitutional No fatigue 05/26/2012 Constitutional No fever 05/26/2012 Constitutional No insomnia 05/26/2012 Constitutional No malaise 05/26/2012 Respiratory No chest tightness 2012 Respiratory No cigarette smoking 2012 Respiratory No cough 05/26/2012 Respiratory No dyspnea 05/26/2012 Respiratory No pedal edema 05/26/2012 Respiratory No snoring 05/26/2012 Respiratory No wheezing 05/26/2012 Gastrointestinal No hemorrhoids 2012 Gastrointestinal No abdominal pain 2012 Gastrointestinal No constipation 2012 Gastrointestinal No diarrhea 05/26/2012 Gastrointestinal No gastroesophageal reflux 05/26/2012 Gastrointestinal No melena 05/26/2012 Gastrointestinal No nausea 05/26/2012 Gastrointestinal No vomiting 05/26/2012 Genitourinary/Nephrology No dysuria 05/26 Genitourinary/Nephrology No hematuria Genitourinary/Nephrology impotence 2012 Musculoskeletal No stiffness 05/26/2012 Musculoskeletal No swelling 05/26/2012 Musculoskeletal No muscle weakness 2012 Musculoskeletal No myalgias 05/26/2012 Dermatologic No rash 05/26/2012 Dermatologic No scar 05/26/2012 Psychiatric No anxiety 05/26/2012 Psychiatric No depression 05/26/2012 Constitutional No recent illness 2011 Constitutional No chills 11/27/2011 Constitutional No fatigue 11/27/2011 Constitutional No fever 11/27/2011 Constitutional No insomnia 11/27/2011 Constitutional No malaise 11/27/2011 Respiratory No chest tightness 2011 Respiratory No cigarette smoking 2011 Respiratory No cough 11/27/2011 Respiratory No dyspnea 11/27/2011 Respiratory No pedal edema 11/27/2011 Respiratory No snoring 11/27/2011 Respiratory No wheezing 11/27/2011 Gastrointestinal No hemorrhoids 2011 Gastrointestinal No abdominal pain 2011 Gastrointestinal No constipation 2011 Gastrointestinal No diarrhea 11/27/2011 Gastrointestinal No gastroesophageal reflux 11/27/2011 Gastrointestinal No melena 11/27/2011 Gastrointestinal No nausea 11/27/2011 Gastrointestinal No vomiting 11/27/2011 Genitourinary/Nephrology No dysuria 11/26 Genitourinary/Nephrology No hematuria Genitourinary/Nephrology impotence 2011 Musculoskeletal No stiffness 11/27/2011 Musculoskeletal No swelling 11/27/2011 Musculoskeletal No muscle weakness 2011 Musculoskeletal No myalgias 11/27/2011 Psychiatric No anxiety 11/27/2011 Psychiatric No depression 11/27/2011 Dermatologic No rash 11/27/2011 Dermatologic No scar 11/27/2011 Constitutional No recent illness 2011 Constitutional No anorexia 10/02/2011 Constitutional No night sweats 2011 Constitutional No chills 10/02/2011 Constitutional No diaphoresis 10/02/2011 Constitutional No fatigue 10/02/2011 Constitutional No fever 10/02/2011 Constitutional No insomnia 10/02/2011 Constitutional No malaise 10/02/2011 Genitourinary/Nephrology No nocturia Genitourinary/Nephrology No urinary incontinence 09/20/2011 Dermatologic No sores 09/20/2011 Dermatologic No rash 09/20/2011 Neurologic No gait abnormality 2011 Neurologic No dizziness 09/20/2011 Neurologic No ataxia 09/20/2011 Constitutional No chills 09/20/2011 Constitutional No fever 09/20/2011 Eyes No eye erythema 09/20/2011 Eyes No vision change 09/20/2011 Ears/Nose/Throat/Neck No hearing loss Ears/Nose/Throat/Neck sinus congestion Ears/Nose/Throat/Neck No sore throat Cardiovascular No chest pain/pressure Cardiovascular No dyspnea 09/20/2011 Cardiovascular No edema 09/20/2011 Cardiovascular No palpitations 2011 Respiratory No cough 09/20/2011 Respiratory No chest tightness 2011 Respiratory No chest congestion 2011 Respiratory No dyspnea 09/20/2011 Gastrointestinal No diarrhea 09/20/2011 Gastrointestinal No constipation 2011 Gastrointestinal No vomiting 09/20/2011 Gastrointestinal No nausea 09/20/2011 Gastrointestinal No abdominal pain 2011 Genitourinary/Nephrology No dysuria 09/19 Genitourinary/Nephrology No urinary urgency 09/20/2011 Genitourinary/Nephrology No urinary frequency 09/20/2011 Physical Exam Exam Name System Name Item Name Status Result Effective Dates Notes Full Exam - General 1994 Constitutional general appearance Overall: well developed 01/01/2018 None Full Exam - General 1994 Constitutional general appearance Overall: in no acute distress 01/01/2018 None Full Exam - General 1994 Constitutional general appearance Overall: well nourished 01/01/2018 None Full Exam - General 1994 Eyes conjunctiva /eyelids Overall: conjunctiva clear 01/01/2018 None Full Exam - General 1994 Eyes conjunctiva /eyelids Overall: cornea clear 01/01/2018 None Full Exam - General 1994 Eyes conjunctiva /eyelids Overall: eyelids normal 01/01/2018 None Full Exam - General 1994 Eyes pupils and irises Overall: pupils equal, round, reactive to light and accomodation 01/01/2018 None Full Exam - General 1994 Ears/Nose/Throat oral cavity/pharynx/larynx Overall: oral mucosa clear 01/01/2018 None Full Exam - General 1994 Ears/Nose/Throat oral cavity/pharynx/larynx Overall: oropharyngeal mucosa clear 01/01/2018 None Full Exam - General 1994 Respiratory auscultation Overall: breath sounds clear bilaterally 01/01/2018 None Full Exam - General 1994 Respiratory respiratory effort/rhythm Overall: no retractions 01/01/2018 None Full Exam - General 1994 Respiratory respiratory effort/rhythm Overall: normal rate 01/01/2018 None Full Exam - General 1994 Cardiovascular extremities Overall: no clubbing 01/01/2018 None Full Exam - General 1994 Cardiovascular auscultation of heart Overall: regular rate 01/01/2018 None Full Exam - General 1994 Cardiovascular auscultation of heart Overall: normal heart sounds 01/01/2018 None Full Exam - General 1994 Abdomen abdominal exam Overall: normal bowel sounds 01/01/2018 None Full Exam - General 1994 Musculoskeletal spine, ribs and pelvis Posture: lordosis 01/01/2018 None Full Exam - General 1994 Musculoskeletal spine, ribs and pelvis Spine: tender @ cervical spine 01/01/2018 tender left and right trapezius Full Exam - General 1994 Musculoskeletal head and neck Overall: head atraumatic 01/01/2018 None Full Exam - General 1994 Neurologic coordination Tremors: dystonia 01/01/2018 None Full Exam - General 1994 Neurologic coordination Tremors: resting 01/01/2018 None Full Exam - General 1994 Neurologic cranial nerves Overall: crainial nerves 2 - 12 grossly intact 01/01/2018 None Full Exam - General 1994 Psychiatric orientation/consciousness Overall: oriented to person, place and time 01/01/2018 None Full Exam - General 1994 Psychiatric mood and affect Overall: normal mood and affect 01/01/2018 None Full Exam - General 1994 Psychiatric mood and affect Mood: happy 01/01/2018 None Full Exam - General 1994 Constitutional general appearance Overall: well developed 12/10/2017 None Full Exam - General 1994 Constitutional general appearance Overall: in no acute distress 12/10/2017 None Full Exam - General 1994 Constitutional general appearance Overall: well nourished 12/10/2017 None Full Exam - General 1994 Eyes conjunctiva /eyelids Overall: conjunctiva clear 12/10/2017 None Full Exam - General 1994 Eyes conjunctiva /eyelids Overall: cornea clear 12/10/2017 None Full Exam - General 1994 Eyes conjunctiva /eyelids Overall: eyelids normal 12/10/2017 None Full Exam - General 1994 Eyes pupils and irises Overall: pupils equal, round, reactive to light and accomodation 12/10/2017 None Full Exam - General 1994 Ears/Nose/Throat oral cavity/pharynx/larynx Overall: oral mucosa clear 12/10/2017 None Full Exam - General 1994 Ears/Nose/Throat oral cavity/pharynx/larynx Overall: oropharyngeal mucosa clear 12/10/2017 None Full Exam - General 1994 Ears/Nose/Throat oral cavity/pharynx/larynx Overall: no masses 12/10/2017 None Full Exam - General 1994 Respiratory auscultation Overall: breath sounds clear bilaterally 12/10/2017 None Full Exam - General 1994 Respiratory respiratory effort/rhythm Overall: no retractions 12/10/2017 None Full Exam - General 1994 Respiratory respiratory effort/rhythm Overall: normal rate 12/10/2017 None Full Exam - General 1994 Cardiovascular extremities Overall: no clubbing 12/10/2017 None Full Exam - General 1994 Cardiovascular auscultation of heart Overall: regular rate 12/10/2017 None Full Exam - General 1994 Cardiovascular auscultation of heart Overall: normal heart sounds 12/10/2017 None Full Exam - General 1994 Cardiovascular auscultation of heart Overall: no murmurs 12/10/2017 None Full Exam - General 1994 Abdomen abdominal exam Overall: no tenderness 12/10/2017 None Full Exam - General 1994 Abdomen abdominal exam Overall: normal bowel sounds 12/10/2017 None Full Exam - General 1994 Musculoskeletal spine, ribs and pelvis Posture: lordosis 12/10/2017 None Full Exam - General 1994 Musculoskeletal head and neck Overall: head atraumatic 12/10/2017 None Full Exam - General 1994 Musculoskeletal head and neck Overall: cervical spine benign 12/10/2017 None Full Exam - General 1994 Neurologic deep tendon reflexes Overall: deep tendon reflexes intact 12/10/2017 None Full Exam - General 1994 Neurologic coordination Tremors: dystonia 12/10/2017 None Full Exam - General 1994 Neurologic coordination Tremors: resting 12/10/2017 None Full Exam - General 1994 Neurologic cranial nerves Overall: crainial nerves 2 - 12 grossly intact 12/10/2017 None Full Exam - General 1994 Neurologic motor Overall: normal bulk, tone 12/10/2017 None Full Exam - General 1994 Psychiatric orientation/consciousness Overall: oriented to person, place and time 12/10/2017 None Full Exam - General 1994 Psychiatric mood and affect Overall: normal mood and affect 12/10/2017 None Full Exam - General 1994 Psychiatric mood and affect Mood: happy 12/10/2017 None Full Exam - General 1994 Musculoskeletal spine, ribs and pelvis Spine: tender @ cervical spine 12/10/2017 tender left and right trapezius Full Exam - General 1994 Constitutional general appearance Overall: well developed 11/05/2017 None Full Exam - General 1994 Constitutional general appearance Overall: in no acute distress 11/05/2017 None Full Exam - General 1994 Constitutional general appearance Overall: well nourished 11/05/2017 None Full Exam - General 1994 Eyes conjunctiva /eyelids Overall: conjunctiva clear 11/05/2017 None Full Exam - General 1994 Eyes conjunctiva /eyelids Overall: cornea clear 11/05/2017 None Full Exam - General 1994 Eyes conjunctiva /eyelids Overall: eyelids normal 11/05/2017 None Full Exam - General 1994 Eyes pupils and irises Overall: pupils equal, round, reactive to light and accomodation 11/05/2017 None Full Exam - General 1994 Ears/Nose/Throat oral cavity/pharynx/larynx Overall: oral mucosa clear 11/05/2017 None Full Exam - General 1994 Ears/Nose/Throat oral cavity/pharynx/larynx Overall: oropharyngeal mucosa clear 11/05/2017 None Full Exam - General 1994 Ears/Nose/Throat oral cavity/pharynx/larynx Overall: no masses 11/05/2017 None Full Exam - General 1994 Respiratory auscultation Overall: breath sounds clear bilaterally 11/05/2017 None Full Exam - General 1994 Respiratory respiratory effort/rhythm Overall: no retractions 11/05/2017 None Full Exam - General 1994 Respiratory respiratory effort/rhythm Overall: normal rate 11/05/2017 None Full Exam - General 1994 Cardiovascular extremities Overall: no clubbing 11/05/2017 None Full Exam - General 1994 Cardiovascular auscultation of heart Overall: regular rate 11/05/2017 None Full Exam - General 1994 Cardiovascular auscultation of heart Overall: normal heart sounds 11/05/2017 None Full Exam - General 1994 Cardiovascular auscultation of heart Overall: no murmurs 11/05/2017 None Full Exam - General 1994 Abdomen abdominal exam Overall: no tenderness 11/05/2017 None Full Exam - General 1994 Abdomen abdominal exam Overall: normal bowel sounds 11/05/2017 None Full Exam - General 1994 Musculoskeletal spine, ribs and pelvis Posture: lordosis 11/05/2017 None Full Exam - General 1994 Musculoskeletal spine, ribs and pelvis Sacroiliac joints: nontender 11/05/2017 None Full Exam - General 1994 Musculoskeletal head and neck Overall: head atraumatic 11/05/2017 None Full Exam - General 1994 Musculoskeletal head and neck Overall: cervical spine benign 11/05/2017 None Full Exam - General 1994 Neurologic deep tendon reflexes Overall: deep tendon reflexes intact 11/05/2017 None Full Exam - General 1994 Neurologic coordination Tremors: dystonia 11/05/2017 None Full Exam - General 1994 Neurologic coordination Tremors: resting 11/05/2017 None Full Exam - General 1994 Neurologic cranial nerves Overall: crainial nerves 2 - 12 grossly intact 11/05/2017 None Full Exam - General 1994 Neurologic motor Overall: normal bulk, tone 11/05/2017 None Full Exam - General 1994 Psychiatric orientation/consciousness Overall: oriented to person, place and time 11/05/2017 None Full Exam - General 1994 Psychiatric mood and affect Overall: normal mood and affect 11/05/2017 None Full Exam - General 1994 Psychiatric mood and affect Mood: happy 11/05/2017 None Full Exam - General 1994 Constitutional general appearance Overall: well developed 10/21/2017 None Full Exam - General 1994 Constitutional general appearance Overall: in no acute distress 10/21/2017 None Full Exam - General 1994 Constitutional general appearance Overall: well nourished 10/21/2017 None Full Exam - General 1994 Eyes conjunctiva /eyelids Overall: conjunctiva clear 10/21/2017 None Full Exam - General 1994 Eyes conjunctiva /eyelids Overall: cornea clear 10/21/2017 None Full Exam - General 1994 Eyes conjunctiva /eyelids Overall: eyelids normal 10/21/2017 None Full Exam - General 1994 Eyes pupils and irises Overall: pupils equal, round, reactive to light and accomodation 10/21/2017 None Full Exam - General 1994 Ears/Nose/Throat oral cavity/pharynx/larynx Overall: oral mucosa clear 10/21/2017 None Full Exam - General 1994 Ears/Nose/Throat oral cavity/pharynx/larynx Overall: oropharyngeal mucosa clear 10/21/2017 None Full Exam - General 1994 Ears/Nose/Throat oral cavity/pharynx/larynx Overall: no masses 10/21/2017 None Full Exam - General 1994 Respiratory auscultation Overall: breath sounds clear bilaterally 10/21/2017 None Full Exam - General 1994 Respiratory respiratory effort/rhythm Overall: no retractions 10/21/2017 None Full Exam - General 1994 Respiratory respiratory effort/rhythm Overall: normal rate 10/21/2017 None Full Exam - General 1994 Cardiovascular extremities Overall: no clubbing 10/21/2017 None Full Exam - General 1994 Cardiovascular auscultation of heart Overall: regular rate 10/21/2017 None Full Exam - General 1994 Cardiovascular auscultation of heart Overall: normal heart sounds 10/21/2017 None Full Exam - General 1994 Cardiovascular auscultation of heart Overall: no murmurs 10/21/2017 None Full Exam - General 1994 Abdomen abdominal exam Overall: no tenderness 10/21/2017 None Full Exam - General 1994 Abdomen abdominal exam Overall: normal bowel sounds 10/21/2017 None Full Exam - General 1994 Musculoskeletal spine, ribs and pelvis Posture: lordosis 10/21/2017 None Full Exam - General 1994 Musculoskeletal spine, ribs and pelvis Spine: tender @ thoracic spine 10/21/2017 None Full Exam - General 1994 Musculoskeletal spine, ribs and pelvis Spine: tender @ lumbar spine 10/21/2017 None Full Exam - General 1994 Musculoskeletal spine, ribs and pelvis Sacroiliac joints: nontender 10/21/2017 None Full Exam - General 1994 Musculoskeletal head and neck Overall: head atraumatic 10/21/2017 None Full Exam - General 1994 Musculoskeletal head and neck Overall: cervical spine benign 10/21/2017 None Full Exam - General 1994 Neurologic deep tendon reflexes Overall: deep tendon reflexes intact 10/21/2017 None Full Exam - General 1994 Neurologic coordination Tremors: dystonia 10/21/2017 None Full Exam - General 1994 Neurologic coordination Tremors: resting 10/21/2017 None Full Exam - General 1994 Neurologic cranial nerves Overall: crainial nerves 2 - 12 grossly intact 10/21/2017 None Full Exam - General 1994 Neurologic motor Overall: normal bulk, tone 10/21/2017 None Full Exam - General 1994 Psychiatric orientation/consciousness Overall: oriented to person, place and time 10/21/2017 None Full Exam - General 1994 Psychiatric mood and affect Overall: normal mood and affect 10/21/2017 None Full Exam - General 1994 Psychiatric mood and affect Mood: happy 10/21/2017 None Full Exam - General 1994 Constitutional general appearance Overall: well developed 10/18/2017 None Full Exam - General 1994 Constitutional general appearance Overall: in no acute distress 10/18/2017 None Full Exam - General 1994 Constitutional general appearance Overall: well nourished 10/18/2017 None Full Exam - General 1994 Eyes conjunctiva /eyelids Overall: conjunctiva clear 10/18/2017 None Full Exam - General 1994 Eyes conjunctiva /eyelids Overall: cornea clear 10/18/2017 None Full Exam - General 1994 Eyes conjunctiva /eyelids Overall: eyelids normal 10/18/2017 None Full Exam - General 1994 Eyes pupils and irises Overall: pupils equal, round, reactive to light and accomodation 10/18/2017 None Full Exam - General 1994 Ears/Nose/Throat oral cavity/pharynx/larynx Overall: oral mucosa clear 10/18/2017 None Full Exam - General 1994 Ears/Nose/Throat oral cavity/pharynx/larynx Overall: oropharyngeal mucosa clear 10/18/2017 None Full Exam - General 1994 Ears/Nose/Throat oral cavity/pharynx/larynx Overall: no masses 10/18/2017 None Full Exam - General 1994 Respiratory auscultation Overall: breath sounds clear bilaterally 10/18/2017 None Full Exam - General 1994 Respiratory respiratory effort/rhythm Overall: no retractions 10/18/2017 None Full Exam - General 1994 Respiratory respiratory effort/rhythm Overall: normal rate 10/18/2017 None Full Exam - General 1994 Cardiovascular extremities Overall: no clubbing 10/18/2017 None Full Exam - General 1994 Cardiovascular auscultation of heart Overall: regular rate 10/18/2017 None Full Exam - General 1994 Cardiovascular auscultation of heart Overall: normal heart sounds 10/18/2017 None Full Exam - General 1994 Cardiovascular auscultation of heart Overall: no murmurs 10/18/2017 None Full Exam - General 1994 Abdomen abdominal exam Overall: normal bowel sounds 10/18/2017 None Full Exam - General 1994 Musculoskeletal spine, ribs and pelvis Posture: lordosis 10/18/2017 None Full Exam - General 1994 Musculoskeletal spine, ribs and pelvis Spine: tender @ thoracic spine 10/18/2017 None Full Exam - General 1994 Musculoskeletal spine, ribs and pelvis Spine: tender @ lumbar spine 10/18/2017 None Full Exam - General 1994 Musculoskeletal spine, ribs and pelvis Sacroiliac joints: nontender 10/18/2017 None Full Exam - General 1994 Musculoskeletal head and neck Overall: head atraumatic 10/18/2017 None Full Exam - General 1994 Musculoskeletal head and neck Overall: cervical spine benign 10/18/2017 None Full Exam - General 1994 Neurologic deep tendon reflexes Overall: deep tendon reflexes intact 10/18/2017 None Full Exam - General 1994 Neurologic coordination Tremors: dystonia 10/18/2017 None Full Exam - General 1994 Neurologic coordination Tremors: resting 10/18/2017 None Full Exam - General 1994 Neurologic cranial nerves Overall: crainial nerves 2 - 12 grossly intact 10/18/2017 None Full Exam - General 1994 Neurologic motor Overall: normal bulk, tone 10/18/2017 None Full Exam - General 1994 Psychiatric orientation/consciousness Overall: oriented to person, place and time 10/18/2017 None Full Exam - General 1994 Psychiatric mood and affect Overall: normal mood and affect 10/18/2017 None Full Exam - General 1994 Psychiatric mood and affect Mood: happy 10/18/2017 None Full Exam - General 1994 Constitutional general appearance Overall: well developed 09/10/2017 None Full Exam - General 1994 Constitutional general appearance Overall: in no acute distress 09/10/2017 None Full Exam - General 1994 Constitutional general appearance Overall: well nourished 09/10/2017 None Full Exam - General 1994 Eyes conjunctiva /eyelids Overall: conjunctiva clear 09/10/2017 None Full Exam - General 1994 Eyes conjunctiva /eyelids Overall: cornea clear 09/10/2017 None Full Exam - General 1994 Eyes conjunctiva /eyelids Overall: eyelids normal 09/10/2017 None Full Exam - General 1994 Eyes pupils and irises Overall: pupils equal, round, reactive to light and accomodation 09/10/2017 None Full Exam - General 1994 Ears/Nose/Throat oral cavity/pharynx/larynx Overall: oral mucosa clear 09/10/2017 None Full Exam - General 1994 Ears/Nose/Throat oral cavity/pharynx/larynx Overall: oropharyngeal mucosa clear 09/10/2017 None Full Exam - General 1994 Ears/Nose/Throat oral cavity/pharynx/larynx Overall: no masses 09/10/2017 None Full Exam - General 1994 Respiratory auscultation Overall: breath sounds clear bilaterally 09/10/2017 None Full Exam - General 1994 Respiratory respiratory effort/rhythm Overall: no retractions 09/10/2017 None Full Exam - General 1994 Respiratory respiratory effort/rhythm Overall: normal rate 09/10/2017 None Full Exam - General 1994 Cardiovascular extremities Overall: no clubbing 09/10/2017 None Full Exam - General 1994 Cardiovascular auscultation of heart Overall: regular rate 09/10/2017 None Full Exam - General 1994 Cardiovascular auscultation of heart Overall: normal heart sounds 09/10/2017 None Full Exam - General 1994 Cardiovascular auscultation of heart Overall: no murmurs 09/10/2017 None Full Exam - General 1994 Abdomen abdominal exam Overall: no tenderness 09/10/2017 None Full Exam - General 1994 Abdomen abdominal exam Overall: normal bowel sounds 09/10/2017 None Full Exam - General 1994 Musculoskeletal spine, ribs and pelvis Posture: lordosis 09/10/2017 None Full Exam - General 1994 Musculoskeletal spine, ribs and pelvis Spine: tender @ thoracic spine 09/10/2017 None Full Exam - General 1994 Musculoskeletal spine, ribs and pelvis Spine: tender @ lumbar spine 09/10/2017 None Full Exam - General 1994 Musculoskeletal spine, ribs and pelvis Sacroiliac joints: nontender 09/10/2017 None Full Exam - General 1994 Musculoskeletal head and neck Overall: head atraumatic 09/10/2017 None Full Exam - General 1994 Musculoskeletal head and neck Overall: cervical spine benign 09/10/2017 None Full Exam - General 1994 Neurologic deep tendon reflexes Overall: deep tendon reflexes intact 09/10/2017 None Full Exam - General 1994 Neurologic cranial nerves Overall: crainial nerves 2 - 12 grossly intact 09/10/2017 None Full Exam - General 1994 Neurologic motor Overall: normal bulk, tone 09/10/2017 None Full Exam - General 1994 Psychiatric orientation/consciousness Overall: oriented to person, place and time 09/10/2017 None Full Exam - General 1994 Psychiatric mood and affect Overall: normal mood and affect 09/10/2017 None Full Exam - General 1994 Psychiatric mood and affect Mood: happy 09/10/2017 None Full Exam - General 1994 Neurologic coordination Tremors: dystonia 09/10/2017 None Full Exam - General 1994 Neurologic coordination Tremors: resting 09/10/2017 None Full Exam - General 1994 Constitutional general appearance Overall: well developed 08/01/2017 None Full Exam - General 1994 Constitutional general appearance Overall: in no acute distress 08/01/2017 None Full Exam - General 1994 Constitutional general appearance Overall: well nourished 08/01/2017 None Full Exam - General 1994 Eyes conjunctiva /eyelids Overall: conjunctiva clear 08/01/2017 None Full Exam - General 1994 Eyes conjunctiva /eyelids Overall: eyelids normal 08/01/2017 None Full Exam - General 1994 Ears/Nose/Throat lips/teeth/gingiva Overall: benign lips 08/01/2017 None Full Exam - General 1994 Respiratory respiratory effort/rhythm Overall: no retractions 08/01/2017 None Full Exam - General 1994 Respiratory respiratory effort/rhythm Overall: normal rate 08/01/2017 None Full Exam - General 1994 Musculoskeletal head and neck Overall: head atraumatic 08/01/2017 None Full Exam - General 1994 Neurologic cranial nerves Overall: crainial nerves 2 - 12 grossly intact 08/01/2017 None Full Exam - General 1994 Psychiatric orientation/consciousness Overall: oriented to person, place and time 08/01/2017 None Full Exam - General 1994 Psychiatric mood and affect Overall: normal mood and affect 08/01/2017 None Full Exam - General 1994 Psychiatric appearance Overall: well-groomed, good eye contact 08/01/2017 None Full Exam - General 1994 Constitutional general appearance Overall: well developed 03/14/2017 None Full Exam - General 1994 Constitutional general appearance Overall: in no acute distress 03/14/2017 None Full Exam - General 1994 Constitutional general appearance Overall: well nourished 03/14/2017 None Full Exam - General 1994 Eyes conjunctiva /eyelids Overall: conjunctiva clear 03/14/2017 None Full Exam - General 1994 Eyes conjunctiva /eyelids Overall: cornea clear 03/14/2017 None Full Exam - General 1994 Eyes conjunctiva /eyelids Overall: eyelids normal 03/14/2017 None Full Exam - General 1994 Eyes pupils and irises Overall: pupils equal, round, reactive to light and accomodation 03/14/2017 None Full Exam - General 1994 Ears/Nose/Throat oral cavity/pharynx/larynx Overall: oral mucosa clear 03/14/2017 None Full Exam - General 1994 Ears/Nose/Throat oral cavity/pharynx/larynx Overall: oropharyngeal mucosa clear 03/14/2017 None Full Exam - General 1994 Ears/Nose/Throat oral cavity/pharynx/larynx Overall: no masses 03/14/2017 None Full Exam - General 1994 Respiratory auscultation Overall: breath sounds clear bilaterally 03/14/2017 None Full Exam - General 1994 Respiratory respiratory effort/rhythm Overall: no retractions 03/14/2017 None Full Exam - General 1994 Respiratory respiratory effort/rhythm Overall: normal rate 03/14/2017 None Full Exam - General 1994 Cardiovascular extremities Overall: no clubbing 03/14/2017 None Full Exam - General 1994 Cardiovascular auscultation of heart Overall: regular rate 03/14/2017 None Full Exam - General 1994 Cardiovascular auscultation of heart Overall: normal heart sounds 03/14/2017 None Full Exam - General 1994 Cardiovascular auscultation of heart Overall: no murmurs 03/14/2017 None Full Exam - General 1994 Abdomen abdominal exam Overall: no tenderness 03/14/2017 None Full Exam - General 1994 Abdomen abdominal exam Overall: normal bowel sounds 03/14/2017 None Full Exam - General 1994 Musculoskeletal spine, ribs and pelvis Posture: lordosis 03/14/2017 None Full Exam - General 1994 Musculoskeletal spine, ribs and pelvis Spine: tender @ thoracic spine 03/14/2017 None Full Exam - General 1994 Musculoskeletal spine, ribs and pelvis Spine: tender @ lumbar spine 03/14/2017 None Full Exam - General 1994 Musculoskeletal spine, ribs and pelvis Sacroiliac joints: nontender 03/14/2017 None Full Exam - General 1994 Musculoskeletal head and neck Overall: head atraumatic 03/14/2017 None Full Exam - General 1994 Musculoskeletal head and neck Overall: cervical spine benign 03/14/2017 None Full Exam - General 1994 Neurologic deep tendon reflexes Overall: deep tendon reflexes intact 03/14/2017 None Full Exam - General 1994 Neurologic cranial nerves Overall: crainial nerves 2 - 12 grossly intact 03/14/2017 None Full Exam - General 1994 Neurologic motor Overall: normal bulk, tone 03/14/2017 None Full Exam - General 1994 Psychiatric orientation/consciousness Overall: oriented to person, place and time 03/14/2017 None Full Exam - General 1994 Psychiatric mood and affect Overall: normal mood and affect 03/14/2017 None Full Exam - General 1994 Psychiatric mood and affect Mood: happy 03/14/2017 None Full Exam - General 1994 Constitutional general appearance Overall: well developed 09/11/2016 None Full Exam - General 1994 Constitutional general appearance Overall: in no acute distress 09/11/2016 None Full Exam - General 1994 Constitutional general appearance Overall: well nourished 09/11/2016 None Full Exam - General 1994 Eyes conjunctiva /eyelids Overall: conjunctiva clear 09/11/2016 None Full Exam - General 1994 Eyes conjunctiva /eyelids Overall: cornea clear 09/11/2016 None Full Exam - General 1994 Eyes conjunctiva /eyelids Overall: eyelids normal 09/11/2016 None Full Exam - General 1994 Eyes pupils and irises Overall: pupils equal, round, reactive to light and accomodation 09/11/2016 None Full Exam - General 1994 Ears/Nose/Throat oral cavity/pharynx/larynx Overall: oral mucosa clear 09/11/2016 None Full Exam - General 1994 Ears/Nose/Throat oral cavity/pharynx/larynx Overall: oropharyngeal mucosa clear 09/11/2016 None Full Exam - General 1994 Ears/Nose/Throat oral cavity/pharynx/larynx Overall: no masses 09/11/2016 None Full Exam - General 1994 Respiratory auscultation Overall: breath sounds clear bilaterally 09/11/2016 None Full Exam - General 1994 Respiratory respiratory effort/rhythm Overall: no retractions 09/11/2016 None Full Exam - General 1994 Respiratory respiratory effort/rhythm Overall: normal rate 09/11/2016 None Full Exam - General 1994 Cardiovascular extremities Overall: no clubbing 09/11/2016 None Full Exam - General 1994 Cardiovascular auscultation of heart Overall: regular rate 09/11/2016 None Full Exam - General 1994 Cardiovascular auscultation of heart Overall: normal heart sounds 09/11/2016 None Full Exam - General 1994 Cardiovascular auscultation of heart Overall: no murmurs 09/11/2016 None Full Exam - General 1994 Abdomen abdominal exam Overall: no tenderness 09/11/2016 None Full Exam - General 1994 Abdomen abdominal exam Overall: normal bowel sounds 09/11/2016 None Full Exam - General 1994 Musculoskeletal spine, ribs and pelvis Posture: lordosis 09/11/2016 None Full Exam - General 1994 Musculoskeletal spine, ribs and pelvis Spine: tender @ thoracic spine 09/11/2016 None Full Exam - General 1994 Musculoskeletal spine, ribs and pelvis Spine: tender @ lumbar spine 09/11/2016 None Full Exam - General 1994 Musculoskeletal spine, ribs and pelvis Sacroiliac joints: nontender 09/11/2016 None Full Exam - General 1994 Musculoskeletal head and neck Overall: head atraumatic 09/11/2016 None Full Exam - General 1994 Musculoskeletal head and neck Overall: cervical spine benign 09/11/2016 None Full Exam - General 1994 Neurologic deep tendon reflexes Overall: deep tendon reflexes intact 09/11/2016 None Full Exam - General 1994 Neurologic cranial nerves Overall: crainial nerves 2 - 12 grossly intact 09/11/2016 None Full Exam - General 1994 Neurologic motor Overall: normal bulk, tone 09/11/2016 None Full Exam - General 1994 Psychiatric orientation/consciousness Overall: oriented to person, place and time 09/11/2016 None Full Exam - General 1994 Psychiatric mood and affect Overall: normal mood and affect 09/11/2016 None Full Exam - General 1994 Psychiatric mood and affect Mood: happy 09/11/2016 None Full Exam - General 1994 Constitutional general appearance Overall: well developed 03/07/2016 None Full Exam - General 1994 Constitutional general appearance Overall: in no acute distress 03/07/2016 None Full Exam - General 1994 Constitutional general appearance Overall: well nourished 03/07/2016 None Full Exam - General 1994 Eyes conjunctiva /eyelids Overall: conjunctiva clear 03/07/2016 None Full Exam - General 1994 Eyes conjunctiva /eyelids Overall: cornea clear 03/07/2016 None Full Exam - General 1994 Eyes conjunctiva /eyelids Overall: eyelids normal 03/07/2016 None Full Exam - General 1994 Eyes pupils and irises Overall: pupils equal, round, reactive to light and accomodation 03/07/2016 None Full Exam - General 1994 Ears/Nose/Throat oral cavity/pharynx/larynx Overall: oral mucosa clear 03/07/2016 None Full Exam - General 1994 Ears/Nose/Throat oral cavity/pharynx/larynx Overall: oropharyngeal mucosa clear 03/07/2016 None Full Exam - General 1994 Ears/Nose/Throat oral cavity/pharynx/larynx Overall: no masses 03/07/2016 None Full Exam - General 1994 Respiratory auscultation Overall: breath sounds clear bilaterally 03/07/2016 None Full Exam - General 1994 Respiratory respiratory effort/rhythm Overall: no retractions 03/07/2016 None Full Exam - General 1994 Respiratory respiratory effort/rhythm Overall: normal rate 03/07/2016 None Full Exam - General 1994 Cardiovascular extremities Overall: no clubbing 03/07/2016 None Full Exam - General 1994 Cardiovascular auscultation of heart Overall: regular rate 03/07/2016 None Full Exam - General 1994 Cardiovascular auscultation of heart Overall: normal heart sounds 03/07/2016 None Full Exam - General 1994 Cardiovascular auscultation of heart Overall: no murmurs 03/07/2016 None Full Exam - General 1994 Abdomen abdominal exam Overall: no tenderness 03/07/2016 None Full Exam - General 1994 Abdomen abdominal exam Overall: normal bowel sounds 03/07/2016 None Full Exam - General 1994 Musculoskeletal spine, ribs and pelvis Posture: lordosis 03/07/2016 None Full Exam - General 1994 Musculoskeletal spine, ribs and pelvis Spine: tender @ thoracic spine 03/07/2016 None Full Exam - General 1994 Musculoskeletal spine, ribs and pelvis Spine: tender @ lumbar spine 03/07/2016 None Full Exam - General 1994 Musculoskeletal spine, ribs and pelvis Sacroiliac joints: nontender 03/07/2016 None Full Exam - General 1994 Musculoskeletal head and neck Overall: head atraumatic 03/07/2016 None Full Exam - General 1994 Musculoskeletal head and neck Overall: cervical spine benign 03/07/2016 None Full Exam - General 1994 Neurologic deep tendon reflexes Overall: deep tendon reflexes intact 03/07/2016 None Full Exam - General 1994 Neurologic cranial nerves Overall: crainial nerves 2 - 12 grossly intact 03/07/2016 None Full Exam - General 1994 Neurologic motor Overall: normal bulk, tone 03/07/2016 None Full Exam - General 1994 Psychiatric orientation/consciousness Overall: oriented to person, place and time 03/07/2016 None Full Exam - General 1994 Psychiatric mood and affect Overall: normal mood and affect 03/07/2016 None Full Exam - General 1994 Psychiatric mood and affect Mood: happy 03/07/2016 None Full Exam - General 1994 Constitutional general appearance Overall: well developed 01/23/2016 None Full Exam - General 1994 Constitutional general appearance Overall: in no acute distress 01/23/2016 None Full Exam - General 1994 Constitutional general appearance Overall: well nourished 01/23/2016 None Full Exam - General 1994 Eyes conjunctiva /eyelids Overall: conjunctiva clear 01/23/2016 None Full Exam - General 1994 Eyes conjunctiva /eyelids Overall: eyelids normal 01/23/2016 None Full Exam - General 1994 Eyes pupils and irises Overall: pupils equal, round, reactive to light and accomodation 01/23/2016 None Full Exam - General 1994 Ears/Nose/Throat oral cavity/pharynx/larynx Overall: oral mucosa clear 01/23/2016 None Full Exam - General 1994 Ears/Nose/Throat oral cavity/pharynx/larynx Overall: oropharyngeal mucosa clear 01/23/2016 None Full Exam - General 1994 Ears/Nose/Throat oral cavity/pharynx/larynx Overall: no masses 01/23/2016 None Full Exam - General 1994 Respiratory auscultation Overall: breath sounds clear bilaterally 01/23/2016 None Full Exam - General 1994 Respiratory respiratory effort/rhythm Overall: no retractions 01/23/2016 None Full Exam - General 1994 Respiratory respiratory effort/rhythm Overall: normal rate 01/23/2016 None Full Exam - General 1994 Cardiovascular extremities Overall: no clubbing 01/23/2016 None Full Exam - General 1994 Cardiovascular auscultation of heart Overall: regular rate 01/23/2016 None Full Exam - General 1994 Cardiovascular auscultation of heart Overall: normal heart sounds 01/23/2016 None Full Exam - General 1994 Cardiovascular auscultation of heart Overall: no murmurs 01/23/2016 None Full Exam - General 1994 Abdomen abdominal exam Overall: no tenderness 01/23/2016 None Full Exam - General 1994 Abdomen abdominal exam Overall: normal bowel sounds 01/23/2016 None Full Exam - General 1994 Musculoskeletal spine, ribs and pelvis Posture: lordosis 01/23/2016 None Full Exam - General 1994 Musculoskeletal head and neck Overall: head atraumatic 01/23/2016 None Full Exam - General 1994 Neurologic cranial nerves Overall: crainial nerves 2 - 12 grossly intact 01/23/2016 None Full Exam - General 1994 Psychiatric orientation/consciousness Overall: oriented to person, place and time 01/23/2016 None Full Exam - General 1994 Psychiatric mood and affect Overall: normal mood and affect 01/23/2016 None Full Exam - General 1994 Ears/Nose/Throat lips/teeth/gingiva Overall: benign lips 01/23/2016 None Full Exam - General 1994 Ears/Nose/Throat otoscopic exam External auditory canal: partial cerumen occlusion 01/23/2016 None Full Exam - General 1994 Ears/Nose/Throat otoscopic exam Overall: tympanic membranes clear 01/23/2016 None Full Exam - General 1994 Lymphatic neck nodes Overall: anterior cervical chain benign 01/23/2016 None Full Exam - General 1994 Lymphatic neck nodes Overall: posterior cervical chain benign 01/23/2016 None Full Exam - General 1994 Musculoskeletal gait and station Overall: normal gait 01/23/2016 None Full Exam - General 1994 Musculoskeletal gait and station Overall: normal station 01/23/2016 None Full Exam - General 1994 Psychiatric mood and affect Mood: happy 01/23/2016 None Full Exam - General 1994 Psychiatric appearance Overall: well-groomed, good eye contact 01/23/2016 None Full Exam - General 1994 Constitutional general appearance Overall: well developed 11/09/2015 None Full Exam - General 1994 Constitutional general appearance Overall: in no acute distress 11/09/2015 None Full Exam - General 1994 Constitutional general appearance Overall: well nourished 11/09/2015 None Full Exam - General 1994 Eyes conjunctiva /eyelids Overall: conjunctiva clear 11/09/2015 None Full Exam - General 1994 Eyes conjunctiva /eyelids Overall: cornea clear 11/09/2015 None Full Exam - General 1994 Eyes conjunctiva /eyelids Overall: eyelids normal 11/09/2015 None Full Exam - General 1994 Eyes pupils and irises Overall: pupils equal, round, reactive to light and accomodation 11/09/2015 None Full Exam - General 1994 Ears/Nose/Throat oral cavity/pharynx/larynx Overall: oral mucosa clear 11/09/2015 None Full Exam - General 1994 Ears/Nose/Throat oral cavity/pharynx/larynx Overall: oropharyngeal mucosa clear 11/09/2015 None Full Exam - General 1994 Ears/Nose/Throat oral cavity/pharynx/larynx Overall: no masses 11/09/2015 None Full Exam - General 1994 Respiratory auscultation Overall: breath sounds clear bilaterally 11/09/2015 None Full Exam - General 1994 Respiratory respiratory effort/rhythm Overall: no retractions 11/09/2015 None Full Exam - General 1994 Respiratory respiratory effort/rhythm Overall: normal rate 11/09/2015 None Full Exam - General 1994 Cardiovascular extremities Overall: no clubbing 11/09/2015 None Full Exam - General 1994 Cardiovascular auscultation of heart Overall: regular rate 11/09/2015 None Full Exam - General 1994 Cardiovascular auscultation of heart Overall: normal heart sounds 11/09/2015 None Full Exam - General 1994 Cardiovascular auscultation of heart Overall: no murmurs 11/09/2015 None Full Exam - General 1994 Abdomen abdominal exam Overall: no tenderness 11/09/2015 None Full Exam - General 1994 Abdomen abdominal exam Overall: normal bowel sounds 11/09/2015 None Full Exam - General 1994 Musculoskeletal spine, ribs and pelvis Posture: lordosis 11/09/2015 None Full Exam - General 1994 Musculoskeletal spine, ribs and pelvis Spine: tender @ thoracic spine 11/09/2015 None Full Exam - General 1994 Musculoskeletal spine, ribs and pelvis Spine: tender @ lumbar spine 11/09/2015 None Full Exam - General 1994 Musculoskeletal spine, ribs and pelvis Sacroiliac joints: nontender 11/09/2015 None Full Exam - General 1994 Musculoskeletal head and neck Overall: head atraumatic 11/09/2015 None Full Exam - General 1994 Musculoskeletal head and neck Overall: cervical spine benign 11/09/2015 None Full Exam - General 1994 Neurologic deep tendon reflexes Overall: deep tendon reflexes intact 11/09/2015 None Full Exam - General 1994 Neurologic cranial nerves Overall: crainial nerves 2 - 12 grossly intact 11/09/2015 None Full Exam - General 1994 Neurologic motor Overall: normal bulk, tone 11/09/2015 None Full Exam - General 1994 Psychiatric orientation/consciousness Overall: oriented to person, place and time 11/09/2015 None Full Exam - General 1994 Psychiatric mood and affect Overall: normal mood and affect 11/09/2015 None Full Exam - General 1994 Psychiatric mood and affect Mood: happy 11/09/2015 None Full Exam - General 1994 Constitutional general appearance Overall: well developed 08/09/2015 None Full Exam - General 1994 Constitutional general appearance Overall: in no acute distress 08/09/2015 None Full Exam - General 1994 Constitutional general appearance Overall: well nourished 08/09/2015 None Full Exam - General 1994 Eyes conjunctiva /eyelids Overall: conjunctiva clear 08/09/2015 None Full Exam - General 1994 Eyes conjunctiva /eyelids Overall: cornea clear 08/09/2015 None Full Exam - General 1994 Eyes conjunctiva /eyelids Overall: eyelids normal 08/09/2015 None Full Exam - General 1994 Eyes pupils and irises Overall: pupils equal, round, reactive to light and accomodation 08/09/2015 None Full Exam - General 1994 Ears/Nose/Throat oral cavity/pharynx/larynx Overall: oral mucosa clear 08/09/2015 None Full Exam - General 1994 Ears/Nose/Throat oral cavity/pharynx/larynx Overall: oropharyngeal mucosa clear 08/09/2015 None Full Exam - General 1994 Ears/Nose/Throat oral cavity/pharynx/larynx Overall: no masses 08/09/2015 None Full Exam - General 1994 Respiratory auscultation Overall: breath sounds clear bilaterally 08/09/2015 None Full Exam - General 1994 Respiratory respiratory effort/rhythm Overall: no retractions 08/09/2015 None Full Exam - General 1994 Respiratory respiratory effort/rhythm Overall: normal rate 08/09/2015 None Full Exam - General 1994 Cardiovascular extremities Overall: no clubbing 08/09/2015 None Full Exam - General 1994 Cardiovascular auscultation of heart Overall: regular rate 08/09/2015 None Full Exam - General 1994 Cardiovascular auscultation of heart Overall: normal heart sounds 08/09/2015 None Full Exam - General 1994 Cardiovascular auscultation of heart Overall: no murmurs 08/09/2015 None Full Exam - General 1994 Abdomen abdominal exam Overall: no tenderness 08/09/2015 None Full Exam - General 1994 Abdomen abdominal exam Overall: normal bowel sounds 08/09/2015 None Full Exam - General 1994 Musculoskeletal spine, ribs and pelvis Posture: lordosis 08/09/2015 None Full Exam - General 1994 Musculoskeletal spine, ribs and pelvis Spine: tender @ thoracic spine 08/09/2015 None Full Exam - General 1994 Musculoskeletal spine, ribs and pelvis Spine: tender @ lumbar spine 08/09/2015 None Full Exam - General 1994 Musculoskeletal spine, ribs and pelvis Sacroiliac joints: nontender 08/09/2015 None Full Exam - General 1994 Musculoskeletal head and neck Overall: head atraumatic 08/09/2015 None Full Exam - General 1994 Musculoskeletal head and neck Overall: cervical spine benign 08/09/2015 None Full Exam - General 1994 Neurologic deep tendon reflexes Overall: deep tendon reflexes intact 08/09/2015 None Full Exam - General 1994 Neurologic cranial nerves Overall: crainial nerves 2 - 12 grossly intact 08/09/2015 None Full Exam - General 1994 Neurologic motor Overall: normal bulk, tone 08/09/2015 None Full Exam - General 1994 Psychiatric orientation/consciousness Overall: oriented to person, place and time 08/09/2015 None Full Exam - General 1994 Psychiatric mood and affect Overall: normal mood and affect 08/09/2015 None Full Exam - General 1994 Psychiatric mood and affect Mood: happy 08/09/2015 None Full Exam - General 1994 Constitutional general appearance Overall: well developed 07/04/2015 None Full Exam - General 1994 Constitutional general appearance Overall: in no acute distress 07/04/2015 None Full Exam - General 1994 Constitutional general appearance Overall: well nourished 07/04/2015 None Full Exam - General 1994 Eyes conjunctiva /eyelids Overall: conjunctiva clear 07/04/2015 None Full Exam - General 1994 Eyes conjunctiva /eyelids Overall: cornea clear 07/04/2015 None Full Exam - General 1994 Eyes conjunctiva /eyelids Overall: eyelids normal 07/04/2015 None Full Exam - General 1994 Eyes pupils and irises Overall: pupils equal, round, reactive to light and accomodation 07/04/2015 None Full Exam - General 1994 Ears/Nose/Throat oral cavity/pharynx/larynx Overall: oral mucosa clear 07/04/2015 None Full Exam - General 1994 Ears/Nose/Throat oral cavity/pharynx/larynx Overall: oropharyngeal mucosa clear 07/04/2015 None Full Exam - General 1994 Ears/Nose/Throat oral cavity/pharynx/larynx Overall: no masses 07/04/2015 None Full Exam - General 1994 Respiratory auscultation Overall: breath sounds clear bilaterally 07/04/2015 None Full Exam - General 1994 Respiratory respiratory effort/rhythm Overall: no retractions 07/04/2015 None Full Exam - General 1994 Respiratory respiratory effort/rhythm Overall: normal rate 07/04/2015 None Full Exam - General 1994 Cardiovascular extremities Overall: no clubbing 07/04/2015 None Full Exam - General 1994 Cardiovascular auscultation of heart Overall: regular rate 07/04/2015 None Full Exam - General 1994 Cardiovascular auscultation of heart Overall: normal heart sounds 07/04/2015 None Full Exam - General 1994 Cardiovascular auscultation of heart Overall: no murmurs 07/04/2015 None Full Exam - General 1994 Musculoskeletal spine, ribs and pelvis Posture: lordosis 07/04/2015 None Full Exam - General 1994 Musculoskeletal spine, ribs and pelvis Spine: tender @ thoracic spine 07/04/2015 None Full Exam - General 1994 Musculoskeletal spine, ribs and pelvis Spine: tender @ lumbar spine 07/04/2015 None Full Exam - General 1994 Musculoskeletal spine, ribs and pelvis Sacroiliac joints: nontender 07/04/2015 None Full Exam - General 1994 Musculoskeletal head and neck Overall: head atraumatic 07/04/2015 None Full Exam - General 1994 Musculoskeletal head and neck Overall: cervical spine benign 07/04/2015 None Full Exam - General 1994 Neurologic deep tendon reflexes Overall: deep tendon reflexes intact 07/04/2015 None Full Exam - General 1994 Neurologic cranial nerves Overall: crainial nerves 2 - 12 grossly intact 07/04/2015 None Full Exam - General 1994 Neurologic motor Overall: normal bulk, tone 07/04/2015 None Full Exam - General 1994 Psychiatric orientation/consciousness Overall: oriented to person, place and time 07/04/2015 None Full Exam - General 1994 Psychiatric mood and affect Overall: normal mood and affect 07/04/2015 None Full Exam - General 1994 Psychiatric mood and affect Mood: happy 07/04/2015 None Full Exam - General 1994 Abdomen abdominal exam Overall: no tenderness 07/04/2015 None Full Exam - General 1994 Abdomen abdominal exam Overall: normal bowel sounds 07/04/2015 None Full Exam - General 1994 Constitutional general appearance Overall: well developed 06/14/2015 None Full Exam - General 1994 Constitutional general appearance Overall: in no acute distress 06/14/2015 None Full Exam - General 1994 Constitutional general appearance Overall: well nourished 06/14/2015 None Full Exam - General 1994 Eyes conjunctiva /eyelids Overall: conjunctiva clear 06/14/2015 None Full Exam - General 1994 Eyes conjunctiva /eyelids Overall: cornea clear 06/14/2015 None Full Exam - General 1994 Eyes conjunctiva /eyelids Overall: eyelids normal 06/14/2015 None Full Exam - General 1994 Eyes pupils and irises Overall: pupils equal, round, reactive to light and accomodation 06/14/2015 None Full Exam - General 1994 Ears/Nose/Throat oral cavity/pharynx/larynx Overall: oral mucosa clear 06/14/2015 None Full Exam - General 1994 Ears/Nose/Throat oral cavity/pharynx/larynx Overall: oropharyngeal mucosa clear 06/14/2015 None Full Exam - General 1994 Ears/Nose/Throat oral cavity/pharynx/larynx Overall: no masses 06/14/2015 None Full Exam - General 1994 Respiratory auscultation Overall: breath sounds clear bilaterally 06/14/2015 None Full Exam - General 1994 Respiratory respiratory effort/rhythm Overall: no retractions 06/14/2015 None Full Exam - General 1994 Respiratory respiratory effort/rhythm Overall: normal rate 06/14/2015 None Full Exam - General 1994 Cardiovascular extremities Overall: no clubbing 06/14/2015 None Full Exam - General 1994 Cardiovascular auscultation of heart Overall: regular rate 06/14/2015 None Full Exam - General 1994 Cardiovascular auscultation of heart Overall: normal heart sounds 06/14/2015 None Full Exam - General 1994 Cardiovascular auscultation of heart Overall: no murmurs 06/14/2015 None Full Exam - General 1994 Musculoskeletal spine, ribs and pelvis Posture: lordosis 06/14/2015 None Full Exam - General 1994 Musculoskeletal spine, ribs and pelvis Spine: tender @ thoracic spine 06/14/2015 None Full Exam - General 1994 Musculoskeletal spine, ribs and pelvis Spine: tender @ lumbar spine 06/14/2015 None Full Exam - General 1994 Musculoskeletal spine, ribs and pelvis Sacroiliac joints: nontender 06/14/2015 None Full Exam - General 1994 Musculoskeletal head and neck Overall: head atraumatic 06/14/2015 None Full Exam - General 1994 Musculoskeletal head and neck Overall: cervical spine benign 06/14/2015 None Full Exam - General 1994 Neurologic deep tendon reflexes Overall: deep tendon reflexes intact 06/14/2015 None Full Exam - General 1994 Neurologic cranial nerves Overall: crainial nerves 2 - 12 grossly intact 06/14/2015 None Full Exam - General 1994 Neurologic motor Overall: normal bulk, tone 06/14/2015 None Full Exam - General 1994 Psychiatric orientation/consciousness Overall: oriented to person, place and time 06/14/2015 None Full Exam - General 1994 Psychiatric mood and affect Overall: normal mood and affect 06/14/2015 None Full Exam - General 1994 Psychiatric mood and affect Mood: happy 06/14/2015 None Full Exam - General 1994 Constitutional general appearance Overall: well developed 03/14/2015 None Full Exam - General 1994 Constitutional general appearance Overall: in no acute distress 03/14/2015 None Full Exam - General 1994 Constitutional general appearance Overall: well nourished 03/14/2015 None Full Exam - General 1994 Eyes conjunctiva /eyelids Overall: conjunctiva clear 03/14/2015 None Full Exam - General 1994 Eyes conjunctiva /eyelids Overall: cornea clear 03/14/2015 None Full Exam - General 1994 Eyes conjunctiva /eyelids Overall: eyelids normal 03/14/2015 None Full Exam - General 1994 Eyes pupils and irises Overall: pupils equal, round, reactive to light and accomodation 03/14/2015 None Full Exam - General 1994 Respiratory auscultation Overall: breath sounds clear bilaterally 03/14/2015 None Full Exam - General 1994 Respiratory respiratory effort/rhythm Overall: no retractions 03/14/2015 None Full Exam - General 1994 Respiratory respiratory effort/rhythm Overall: normal rate 03/14/2015 None Full Exam - General 1994 Cardiovascular extremities Overall: no clubbing 03/14/2015 None Full Exam - General 1994 Cardiovascular auscultation of heart Overall: regular rate 03/14/2015 None Full Exam - General 1994 Cardiovascular auscultation of heart Overall: normal heart sounds 03/14/2015 None Full Exam - General 1994 Cardiovascular auscultation of heart Overall: no murmurs 03/14/2015 None Full Exam - General 1994 Musculoskeletal spine, ribs and pelvis Posture: lordosis 03/14/2015 None Full Exam - General 1994 Musculoskeletal head and neck Overall: head atraumatic 03/14/2015 None Full Exam - General 1994 Musculoskeletal head and neck Overall: cervical spine benign 03/14/2015 None Full Exam - General 1994 Neurologic deep tendon reflexes Overall: deep tendon reflexes intact 03/14/2015 None Full Exam - General 1994 Neurologic cranial nerves Overall: crainial nerves 2 - 12 grossly intact 03/14/2015 None Full Exam - General 1994 Neurologic motor Overall: normal bulk, tone 03/14/2015 None Full Exam - General 1994 Psychiatric orientation/consciousness Overall: oriented to person, place and time 03/14/2015 None Full Exam - General 1994 Psychiatric mood and affect Overall: normal mood and affect 03/14/2015 None Full Exam - General 1994 Psychiatric mood and affect Mood: happy 03/14/2015 None Full Exam - General 1994 Ears/Nose/Throat oral cavity/pharynx/larynx Overall: oropharyngeal mucosa clear 03/14/2015 None Full Exam - General 1994 Ears/Nose/Throat oral cavity/pharynx/larynx Overall: no masses 03/14/2015 None Full Exam - General 1994 Ears/Nose/Throat oral cavity/pharynx/larynx Overall: oral mucosa clear 03/14/2015 None Full Exam - General 1994 Musculoskeletal spine, ribs and pelvis Sacroiliac joints: nontender 03/14/2015 None Full Exam - General 1994 Musculoskeletal spine, ribs and pelvis Spine: tender @ thoracic spine 03/14/2015 None Full Exam - General 1994 Musculoskeletal spine, ribs and pelvis Spine: tender @ lumbar spine 03/14/2015 None Full Exam - General 1994 Constitutional general appearance Overall: well developed 12/13/2014 None Full Exam - General 1994 Constitutional general appearance Overall: in no acute distress 12/13/2014 None Full Exam - General 1994 Constitutional general appearance Overall: well nourished 12/13/2014 None Full Exam - General 1994 Eyes conjunctiva /eyelids Overall: conjunctiva clear 12/13/2014 None Full Exam - General 1994 Eyes conjunctiva /eyelids Overall: cornea clear 12/13/2014 None Full Exam - General 1994 Eyes conjunctiva /eyelids Overall: eyelids normal 12/13/2014 None Full Exam - General 1994 Eyes pupils and irises Overall: pupils equal, round, reactive to light and accomodation 12/13/2014 None Full Exam - General 1994 Respiratory auscultation Overall: breath sounds clear bilaterally 12/13/2014 None Full Exam - General 1994 Respiratory respiratory effort/rhythm Overall: no retractions 12/13/2014 None Full Exam - General 1994 Respiratory respiratory effort/rhythm Overall: normal rate 12/13/2014 None Full Exam - General 1994 Cardiovascular extremities Overall: no clubbing 12/13/2014 None Full Exam - General 1994 Cardiovascular auscultation of heart Overall: regular rate 12/13/2014 None Full Exam - General 1994 Cardiovascular auscultation of heart Overall: normal heart sounds 12/13/2014 None Full Exam - General 1994 Cardiovascular auscultation of heart Overall: no murmurs 12/13/2014 None Full Exam - General 1994 Musculoskeletal spine, ribs and pelvis Posture: lordosis 12/13/2014 None Full Exam - General 1994 Musculoskeletal spine, ribs and pelvis Sacroiliac joints: a normal exam 12/13/2014 None Full Exam - General 1994 Musculoskeletal head and neck Overall: head atraumatic 12/13/2014 None Full Exam - General 1994 Musculoskeletal head and neck Overall: cervical spine benign 12/13/2014 None Full Exam - General 1994 Neurologic deep tendon reflexes Overall: deep tendon reflexes intact 12/13/2014 None Full Exam - General 1994 Neurologic cranial nerves Overall: crainial nerves 2 - 12 grossly intact 12/13/2014 None Full Exam - General 1994 Neurologic motor Overall: normal bulk, tone 12/13/2014 None Full Exam - General 1994 Psychiatric orientation/consciousness Overall: oriented to person, place and time 12/13/2014 None Full Exam - General 1994 Psychiatric mood and affect Overall: normal mood and affect 12/13/2014 None Full Exam - General 1994 Psychiatric mood and affect Mood: happy 12/13/2014 None Full Exam - General 1994 Constitutional general appearance Overall: well developed 11/16/2014 None Full Exam - General 1994 Constitutional general appearance Overall: in no acute distress 11/16/2014 None Full Exam - General 1994 Constitutional general appearance Overall: well nourished 11/16/2014 None Full Exam - General 1994 Eyes conjunctiva /eyelids Overall: conjunctiva clear 11/16/2014 None Full Exam - General 1994 Eyes conjunctiva /eyelids Overall: cornea clear 11/16/2014 None Full Exam - General 1994 Eyes conjunctiva /eyelids Overall: eyelids normal 11/16/2014 None Full Exam - General 1994 Eyes pupils and irises Overall: pupils equal, round, reactive to light and accomodation 11/16/2014 None Full Exam - General 1994 Respiratory auscultation Overall: breath sounds clear bilaterally 11/16/2014 None Full Exam - General 1994 Respiratory respiratory effort/rhythm Overall: no retractions 11/16/2014 None Full Exam - General 1994 Respiratory respiratory effort/rhythm Overall: normal rate 11/16/2014 None Full Exam - General 1994 Cardiovascular extremities Overall: no clubbing 11/16/2014 None Full Exam - General 1994 Cardiovascular auscultation of heart Overall: regular rate 11/16/2014 None Full Exam - General 1994 Cardiovascular auscultation of heart Overall: normal heart sounds 11/16/2014 None Full Exam - General 1994 Cardiovascular auscultation of heart Overall: no murmurs 11/16/2014 None Full Exam - General 1994 Musculoskeletal spine, ribs and pelvis Posture: lordosis 11/16/2014 None Full Exam - General 1994 Musculoskeletal spine, ribs and pelvis Sacroiliac joints: a normal exam 11/16/2014 None Full Exam - General 1994 Musculoskeletal head and neck Overall: head atraumatic 11/16/2014 None Full Exam - General 1994 Musculoskeletal head and neck Overall: cervical spine benign 11/16/2014 None Full Exam - General 1994 Neurologic deep tendon reflexes Overall: deep tendon reflexes intact 11/16/2014 None Full Exam - General 1994 Neurologic cranial nerves Overall: crainial nerves 2 - 12 grossly intact 11/16/2014 None Full Exam - General 1994 Neurologic motor Overall: normal bulk, tone 11/16/2014 None Full Exam - General 1994 Psychiatric orientation/consciousness Overall: oriented to person, place and time 11/16/2014 None Full Exam - General 1994 Psychiatric mood and affect Overall: normal mood and affect 11/16/2014 None Full Exam - General 1994 Psychiatric mood and affect Mood: happy 11/16/2014 None Full Exam - General 1994 Constitutional general appearance Overall: well developed 09/09/2014 None Full Exam - General 1994 Constitutional general appearance Overall: in no acute distress 09/09/2014 None Full Exam - General 1994 Constitutional general appearance Overall: well nourished 09/09/2014 None Full Exam - General 1994 Eyes conjunctiva /eyelids Overall: conjunctiva clear 09/09/2014 None Full Exam - General 1994 Eyes conjunctiva /eyelids Overall: cornea clear 09/09/2014 None Full Exam - General 1994 Eyes conjunctiva /eyelids Overall: eyelids normal 09/09/2014 None Full Exam - General 1994 Eyes pupils and irises Overall: pupils equal, round, reactive to light and accomodation 09/09/2014 None Full Exam - General 1994 Ears/Nose/Throat oral cavity/pharynx/larynx Overall: oral mucosa clear 09/09/2014 None Full Exam - General 1994 Ears/Nose/Throat oral cavity/pharynx/larynx Overall: oropharyngeal mucosa clear 09/09/2014 None Full Exam - General 1994 Ears/Nose/Throat oral cavity/pharynx/larynx Overall: no masses 09/09/2014 None Full Exam - General 1994 Respiratory auscultation Overall: breath sounds clear bilaterally 09/09/2014 None Full Exam - General 1994 Respiratory respiratory effort/rhythm Overall: no retractions 09/09/2014 None Full Exam - General 1994 Respiratory respiratory effort/rhythm Overall: normal rate 09/09/2014 None Full Exam - General 1994 Cardiovascular extremities Overall: no clubbing 09/09/2014 None Full Exam - General 1994 Cardiovascular auscultation of heart Overall: regular rate 09/09/2014 None Full Exam - General 1994 Cardiovascular auscultation of heart Overall: normal heart sounds 09/09/2014 None Full Exam - General 1994 Cardiovascular auscultation of heart Overall: no murmurs 09/09/2014 None Full Exam - General 1994 Musculoskeletal spine, ribs and pelvis Posture: lordosis 09/09/2014 None Full Exam - General 1994 Musculoskeletal spine, ribs and pelvis Sacroiliac joints: a normal exam 09/09/2014 None Full Exam - General 1994 Musculoskeletal head and neck Overall: head atraumatic 09/09/2014 None Full Exam - General 1994 Musculoskeletal head and neck Overall: cervical spine benign 09/09/2014 None Full Exam - General 1994 Neurologic deep tendon reflexes Overall: deep tendon reflexes intact 09/09/2014 None Full Exam - General 1994 Neurologic cranial nerves Overall: crainial nerves 2 - 12 grossly intact 09/09/2014 None Full Exam - General 1994 Neurologic motor Overall: normal bulk, tone 09/09/2014 None Full Exam - General 1994 Psychiatric orientation/consciousness Overall: oriented to person, place and time 09/09/2014 None Full Exam - General 1994 Psychiatric mood and affect Overall: normal mood and affect 09/09/2014 None Full Exam - General 1994 Psychiatric mood and affect Mood: happy 09/09/2014 None Full Exam - General 1994 Constitutional general appearance Overall: well developed 08/25/2014 None Full Exam - General 1994 Constitutional general appearance Overall: in no acute distress 08/25/2014 None Full Exam - General 1994 Constitutional general appearance Overall: well nourished 08/25/2014 None Full Exam - General 1994 Eyes conjunctiva /eyelids Overall: conjunctiva clear 08/25/2014 None Full Exam - General 1994 Eyes conjunctiva /eyelids Overall: cornea clear 08/25/2014 None Full Exam - General 1994 Eyes conjunctiva /eyelids Overall: eyelids normal 08/25/2014 None Full Exam - General 1994 Eyes pupils and irises Overall: pupils equal, round, reactive to light and accomodation 08/25/2014 None Full Exam - General 1994 Ears/Nose/Throat oral cavity/pharynx/larynx Overall: oral mucosa clear 08/25/2014 None Full Exam - General 1994 Ears/Nose/Throat oral cavity/pharynx/larynx Overall: oropharyngeal mucosa clear 08/25/2014 None Full Exam - General 1994 Ears/Nose/Throat oral cavity/pharynx/larynx Overall: no masses 08/25/2014 None Full Exam - General 1994 Respiratory auscultation Overall: breath sounds clear bilaterally 08/25/2014 None Full Exam - General 1994 Respiratory respiratory effort/rhythm Overall: no retractions 08/25/2014 None Full Exam - General 1994 Respiratory respiratory effort/rhythm Overall: normal rate 08/25/2014 None Full Exam - General 1994 Cardiovascular extremities Overall: no clubbing 08/25/2014 None Full Exam - General 1994 Cardiovascular auscultation of heart Overall: regular rate 08/25/2014 None Full Exam - General 1994 Cardiovascular auscultation of heart Overall: normal heart sounds 08/25/2014 None Full Exam - General 1994 Cardiovascular auscultation of heart Overall: no murmurs 08/25/2014 None Full Exam - General 1994 Abdomen abdominal exam Overall: no tenderness 08/25/2014 None Full Exam - General 1994 Abdomen abdominal exam Overall: normal bowel sounds 08/25/2014 None Full Exam - General 1994 Musculoskeletal digits and nails Digits: a normal exam 08/25/2014 None Full Exam - General 1994 Musculoskeletal spine, ribs and pelvis Posture: lordosis 08/25/2014 None Full Exam - General 1994 Musculoskeletal spine, ribs and pelvis Sacroiliac joints: a normal exam 08/25/2014 None Full Exam - General 1994 Musculoskeletal head and neck Overall: head atraumatic 08/25/2014 None Full Exam - General 1994 Musculoskeletal head and neck Overall: cervical spine benign 08/25/2014 None Full Exam - General 1994 Neurologic deep tendon reflexes Overall: deep tendon reflexes intact 08/25/2014 None Full Exam - General 1994 Neurologic cranial nerves Overall: crainial nerves 2 - 12 grossly intact 08/25/2014 None Full Exam - General 1994 Neurologic motor Overall: normal bulk, tone 08/25/2014 None Full Exam - General 1994 Psychiatric orientation/consciousness Overall: oriented to person, place and time 08/25/2014 None Full Exam - General 1994 Psychiatric mood and affect Overall: normal mood and affect 08/25/2014 None Full Exam - General 1994 Psychiatric mood and affect Mood: happy 08/25/2014 None Full Exam - General 1994 Constitutional general appearance Overall: well developed 06/10/2014 None Full Exam - General 1994 Constitutional general appearance Overall: in no acute distress 06/10/2014 None Full Exam - General 1994 Constitutional general appearance Overall: well nourished 06/10/2014 None Full Exam - General 1994 Eyes conjunctiva /eyelids Overall: conjunctiva clear 06/10/2014 None Full Exam - General 1994 Eyes conjunctiva /eyelids Overall: cornea clear 06/10/2014 None Full Exam - General 1994 Eyes conjunctiva /eyelids Overall: eyelids normal 06/10/2014 None Full Exam - General 1994 Eyes pupils and irises Overall: pupils equal, round, reactive to light and accomodation 06/10/2014 None Full Exam - General 1994 Ears/Nose/Throat oral cavity/pharynx/larynx Overall: oral mucosa clear 06/10/2014 None Full Exam - General 1994 Ears/Nose/Throat oral cavity/pharynx/larynx Overall: oropharyngeal mucosa clear 06/10/2014 None Full Exam - General 1994 Ears/Nose/Throat oral cavity/pharynx/larynx Overall: no masses 06/10/2014 None Full Exam - General 1994 Respiratory auscultation Overall: breath sounds clear bilaterally 06/10/2014 None Full Exam - General 1994 Respiratory respiratory effort/rhythm Overall: no retractions 06/10/2014 None Full Exam - General 1994 Respiratory respiratory effort/rhythm Overall: normal rate 06/10/2014 None Full Exam - General 1994 Cardiovascular extremities Overall: no clubbing 06/10/2014 None Full Exam - General 1994 Cardiovascular auscultation of heart Overall: regular rate 06/10/2014 None Full Exam - General 1994 Cardiovascular auscultation of heart Overall: normal heart sounds 06/10/2014 None Full Exam - General 1994 Cardiovascular auscultation of heart Overall: no murmurs 06/10/2014 None Full Exam - General 1994 Abdomen abdominal exam Overall: no tenderness 06/10/2014 None Full Exam - General 1994 Abdomen abdominal exam Overall: normal bowel sounds 06/10/2014 None Full Exam - General 1994 Musculoskeletal digits and nails Digits: a normal exam 06/10/2014 None Full Exam - General 1994 Musculoskeletal spine, ribs and pelvis Posture: lordosis 06/10/2014 None Full Exam - General 1994 Musculoskeletal spine, ribs and pelvis Sacroiliac joints: a normal exam 06/10/2014 None Full Exam - General 1994 Musculoskeletal head and neck Overall: head atraumatic 06/10/2014 None Full Exam - General 1994 Musculoskeletal head and neck Overall: cervical spine benign 06/10/2014 None Full Exam - General 1994 Neurologic deep tendon reflexes Overall: deep tendon reflexes intact 06/10/2014 None Full Exam - General 1994 Neurologic cranial nerves Overall: crainial nerves 2 - 12 grossly intact 06/10/2014 None Full Exam - General 1994 Neurologic motor Overall: normal bulk, tone 06/10/2014 None Full Exam - General 1994 Psychiatric orientation/consciousness Overall: oriented to person, place and time 06/10/2014 None Full Exam - General 1994 Psychiatric mood and affect Overall: normal mood and affect 06/10/2014 None Full Exam - General 1994 Psychiatric mood and affect Mood: happy 06/10/2014 None Full Exam - General 1994 Constitutional general appearance Overall: well developed 12/03/2013 None Full Exam - General 1994 Constitutional general appearance Overall: in no acute distress 12/03/2013 None Full Exam - General 1994 Constitutional general appearance Overall: well nourished 12/03/2013 None Full Exam - General 1994 Eyes conjunctiva /eyelids Overall: conjunctiva clear 12/03/2013 None Full Exam - General 1994 Eyes conjunctiva /eyelids Overall: cornea clear 12/03/2013 None Full Exam - General 1994 Eyes conjunctiva /eyelids Overall: eyelids normal 12/03/2013 None Full Exam - General 1994 Eyes pupils and irises Overall: pupils equal, round, reactive to light and accomodation 12/03/2013 None Full Exam - General 1994 Ears/Nose/Throat oral cavity/pharynx/larynx Overall: oral mucosa clear 12/03/2013 None Full Exam - General 1994 Ears/Nose/Throat oral cavity/pharynx/larynx Overall: oropharyngeal mucosa clear 12/03/2013 None Full Exam - General 1994 Ears/Nose/Throat oral cavity/pharynx/larynx Overall: no masses 12/03/2013 None Full Exam - General 1994 Respiratory auscultation Overall: breath sounds clear bilaterally 12/03/2013 None Full Exam - General 1994 Respiratory respiratory effort/rhythm Overall: no retractions 12/03/2013 None Full Exam - General 1994 Respiratory respiratory effort/rhythm Overall: normal rate 12/03/2013 None Full Exam - General 1994 Cardiovascular extremities Overall: no clubbing 12/03/2013 None Full Exam - General 1994 Cardiovascular auscultation of heart Overall: regular rate 12/03/2013 None Full Exam - General 1994 Cardiovascular auscultation of heart Overall: normal heart sounds 12/03/2013 None Full Exam - General 1994 Cardiovascular auscultation of heart Overall: no murmurs 12/03/2013 None Full Exam - General 1994 Abdomen abdominal exam Overall: no tenderness 12/03/2013 None Full Exam - General 1994 Abdomen abdominal exam Overall: normal bowel sounds 12/03/2013 None Full Exam - General 1994 Musculoskeletal digits and nails Digits: a normal exam 12/03/2013 None Full Exam - General 1994 Musculoskeletal spine, ribs and pelvis Posture: lordosis 12/03/2013 None Full Exam - General 1994 Musculoskeletal spine, ribs and pelvis Sacroiliac joints: a normal exam 12/03/2013 None Full Exam - General 1994 Musculoskeletal head and neck Overall: head atraumatic 12/03/2013 None Full Exam - General 1994 Musculoskeletal head and neck Overall: cervical spine benign 12/03/2013 None Full Exam - General 1994 Neurologic deep tendon reflexes Overall: deep tendon reflexes intact 12/03/2013 None Full Exam - General 1994 Neurologic cranial nerves Overall: crainial nerves 2 - 12 grossly intact 12/03/2013 None Full Exam - General 1994 Neurologic motor Overall: normal bulk, tone 12/03/2013 None Full Exam - General 1994 Psychiatric orientation/consciousness Overall: oriented to person, place and time 12/03/2013 None Full Exam - General 1994 Psychiatric mood and affect Overall: normal mood and affect 12/03/2013 None Full Exam - General 1994 Psychiatric mood and affect Mood: happy 12/03/2013 None Full Exam - General 1994 Constitutional general appearance Overall: well developed 05/25/2013 None Full Exam - General 1994 Constitutional general appearance Overall: in no acute distress 05/25/2013 None Full Exam - General 1994 Constitutional general appearance Overall: well nourished 05/25/2013 None Full Exam - General 1994 Eyes conjunctiva /eyelids Overall: conjunctiva clear 05/25/2013 None Full Exam - General 1994 Eyes conjunctiva /eyelids Overall: cornea clear 05/25/2013 None Full Exam - General 1994 Eyes conjunctiva /eyelids Overall: eyelids normal 05/25/2013 None Full Exam - General 1994 Eyes pupils and irises Overall: pupils equal, round, reactive to light and accomodation 05/25/2013 None Full Exam - General 1994 Ears/Nose/Throat oral cavity/pharynx/larynx Overall: oral mucosa clear 05/25/2013 None Full Exam - General 1994 Ears/Nose/Throat oral cavity/pharynx/larynx Overall: oropharyngeal mucosa clear 05/25/2013 None Full Exam - General 1994 Ears/Nose/Throat oral cavity/pharynx/larynx Overall: no masses 05/25/2013 None Full Exam - General 1994 Respiratory auscultation Overall: breath sounds clear bilaterally 05/25/2013 None Full Exam - General 1994 Respiratory respiratory effort/rhythm Overall: no retractions 05/25/2013 None Full Exam - General 1994 Respiratory respiratory effort/rhythm Overall: normal rate 05/25/2013 None Full Exam - General 1994 Cardiovascular extremities Overall: no clubbing 05/25/2013 None Full Exam - General 1994 Cardiovascular auscultation of heart Overall: regular rate 05/25/2013 None Full Exam - General 1994 Cardiovascular auscultation of heart Overall: normal heart sounds 05/25/2013 None Full Exam - General 1994 Cardiovascular auscultation of heart Overall: no murmurs 05/25/2013 None Full Exam - General 1994 Abdomen abdominal exam Overall: no tenderness 05/25/2013 None Full Exam - General 1994 Abdomen abdominal exam Overall: normal bowel sounds 05/25/2013 None Full Exam - General 1994 Musculoskeletal digits and nails Digits: a normal exam 05/25/2013 None Full Exam - General 1994 Musculoskeletal spine, ribs and pelvis Posture: lordosis 05/25/2013 None Full Exam - General 1994 Musculoskeletal spine, ribs and pelvis Sacroiliac joints: a normal exam 05/25/2013 None Full Exam - General 1994 Musculoskeletal head and neck Overall: head atraumatic 05/25/2013 None Full Exam - General 1994 Musculoskeletal head and neck Overall: cervical spine benign 05/25/2013 None Full Exam - General 1994 Neurologic deep tendon reflexes Overall: deep tendon reflexes intact 05/25/2013 None Full Exam - General 1994 Neurologic cranial nerves Overall: crainial nerves 2 - 12 grossly intact 05/25/2013 None Full Exam - General 1994 Neurologic motor Overall: normal bulk, tone 05/25/2013 None Full Exam - General 1994 Psychiatric orientation/consciousness Overall: oriented to person, place and time 05/25/2013 None Full Exam - General 1994 Psychiatric mood and affect Overall: normal mood and affect 05/25/2013 None Full Exam - General 1994 Psychiatric mood and affect Mood: happy 05/25/2013 None Full Exam - General 1994 Constitutional general appearance Overall: well developed 11/24/2012 None Full Exam - General 1994 Constitutional general appearance Overall: in no acute distress 11/24/2012 None Full Exam - General 1994 Constitutional general appearance Overall: well nourished 11/24/2012 None Full Exam - General 1994 Eyes conjunctiva /eyelids Overall: conjunctiva clear 11/24/2012 None Full Exam - General 1994 Eyes conjunctiva /eyelids Overall: cornea clear 11/24/2012 None Full Exam - General 1994 Psychiatric mood and affect Mood: happy 11/24/2012 None Full Exam - General 1994 Eyes conjunctiva /eyelids Overall: eyelids normal 11/24/2012 None Full Exam - General 1994 Eyes pupils and irises Overall: pupils equal, round, reactive to light and accomodation 11/24/2012 None Full Exam - General 1994 Ears/Nose/Throat oral cavity/pharynx/larynx Overall: oral mucosa clear 11/24/2012 None Full Exam - General 1994 Ears/Nose/Throat oral cavity/pharynx/larynx Overall: oropharyngeal mucosa clear 11/24/2012 None Full Exam - General 1995 Ears/Nose/Throat oral cavity/pharynx/larynx Overall: no masses 11/24/2012 None Full Exam - General 1995 Respiratory auscultation Overall: breath sounds clear bilaterally 11/24/2012 None Full Exam - General 1995 Respiratory respiratory effort/rhythm Overall: no retractions 11/24/2012 None Full Exam - General 1995 Respiratory respiratory effort/rhythm Overall: normal rate 11/24/2012 None Full Exam - General 1995 Cardiovascular extremities Overall: no clubbing 11/24/2012 None Full Exam - General 1994 Cardiovascular auscultation of heart Overall: regular rate 11/24/2012 None Full Exam - General 1995 Cardiovascular auscultation of heart Overall: normal heart sounds 11/24/2012 None Full Exam - General 1994 Cardiovascular auscultation of heart Overall: no murmurs 11/24/2012 None Full Exam - General 1994 Abdomen abdominal exam Overall: no tenderness 11/24/2012 None Full Exam - General 1995 Abdomen abdominal exam Overall: normal bowel sounds 11/24/2012 None Full Exam - General 1994 Musculoskeletal digits and nails Digits: a normal exam 11/24/2012 None Full Exam - General 1994 Musculoskeletal spine, ribs and pelvis Posture: lordosis 11/24/2012 None Full Exam - General 1994 Musculoskeletal spine, ribs and pelvis Sacroiliac joints: a normal exam 11/24/2012 None Full Exam - General 1994 Musculoskeletal head and neck Overall: head atraumatic 11/24/2012 None Full Exam - General 1994 Musculoskeletal head and neck Overall: cervical spine benign 11/24/2012 None Full Exam - General 1994 Neurologic deep tendon reflexes Overall: deep tendon reflexes intact 11/24/2012 None Full Exam - General 1994 Neurologic cranial nerves Overall: crainial nerves 2 - 12 grossly intact 11/24/2012 None Full Exam - General 1994 Neurologic motor Overall: normal bulk, tone 11/24/2012 None Full Exam - General 1994 Psychiatric orientation/consciousness Overall: oriented to person, place and time 11/24/2012 None Full Exam - General 1994 Psychiatric mood and affect Overall: normal mood and affect 11/24/2012 None Full Exam - General 1994 Constitutional general appearance Overall: well developed 05/26/2012 None Full Exam - General 1994 Constitutional general appearance Overall: in no acute distress 05/26/2012 None Full Exam - General 1994 Constitutional general appearance Overall: well nourished 05/26/2012 None Full Exam - General 1995 Respiratory auscultation Overall: breath sounds clear bilaterally 05/26/2012 None Full Exam - General 1994 Respiratory respiratory effort/rhythm Overall: no retractions 05/26/2012 None Full Exam - General 1994 Respiratory respiratory effort/rhythm Overall: normal rate 05/26/2012 None Full Exam - General 1994 Cardiovascular auscultation of heart Overall: regular rate 05/26/2012 None Full Exam - General 1994 Cardiovascular auscultation of heart Overall: normal heart sounds 05/26/2012 None Full Exam - General 1994 Cardiovascular auscultation of heart Overall: no murmurs 05/26/2012 None Full Exam - General 1994 Abdomen abdominal exam Overall: no tenderness 05/26/2012 None Full Exam - General 1994 Abdomen abdominal exam Overall: normal bowel sounds 05/26/2012 None Full Exam - General 1994 Psychiatric orientation/consciousness Overall: oriented to person, place and time 05/26/2012 None Full Exam - General 1994 Psychiatric mood and affect Overall: normal mood and affect 05/26/2012 None Full Exam - General 1994 Psychiatric mood and affect Mood: happy 05/26/2012 None Full Exam - General 1994 Eyes conjunctiva /eyelids Overall: conjunctiva clear 05/26/2012 None Full Exam - General 1994 Eyes conjunctiva /eyelids Overall: cornea clear 05/26/2012 None Full Exam - General 1994 Eyes conjunctiva /eyelids Overall: eyelids normal 05/26/2012 None Full Exam - General 1994 Eyes pupils and irises Overall: pupils equal, round, reactive to light and accomodation 05/26/2012 None Full Exam - General 1994 Ears/Nose/Throat oral cavity/pharynx/larynx Overall: oral mucosa clear 05/26/2012 None Full Exam - General 1995 Ears/Nose/Throat oral cavity/pharynx/larynx Overall: oropharyngeal mucosa clear 05/26/2012 None Full Exam - General 1995 Ears/Nose/Throat oral cavity/pharynx/larynx Overall: no masses 05/26/2012 None Full Exam - General 1994 Neck thyroid Overall: normal size None Full Exam - General 1994 Neck thyroid Overall: normal consistency 05/26/2012 None Full Exam - General 1994 Neck thyroid Overall: nontender 2012 None Full Exam - General 1994 Neck thyroid Overall: no mass lesions 05/26/2012 None Full Exam - General 1994 Cardiovascular extremities Overall: no clubbing 05/26/2012 None Full Exam - General 1994 Lymphatic neck nodes Overall: anterior cervical chain benign 05/26/2012 None Full Exam - General 1994 Lymphatic neck nodes Overall: posterior cervical chain benign 05/26/2012 None Full Exam - General 1994 Musculoskeletal digits and nails Digits: a normal exam 05/26/2012 None Full Exam - General 1994 Musculoskeletal spine, ribs and pelvis Posture: lordosis 05/26/2012 None Full Exam - General 1994 Musculoskeletal spine, ribs and pelvis Sacroiliac joints: a normal exam 05/26/2012 None Full Exam - General 1994 Musculoskeletal head and neck Overall: head atraumatic 05/26/2012 None Full Exam - General 1994 Musculoskeletal head and neck Overall: cervical spine benign 05/26/2012 None Full Exam - General 1994 Neurologic deep tendon reflexes Overall: deep tendon reflexes intact 05/26/2012 None Full Exam - General 1994 Neurologic cranial nerves Overall: crainial nerves 2 - 12 grossly intact 05/26/2012 None Full Exam - General 1994 Neurologic motor Overall: normal bulk, tone 05/26/2012 None Full Exam - General 1994 Psychiatric orientation/consciousness Overall: oriented to person, place and time 11/27/2011 None Full Exam - General 1994 Psychiatric mood and affect Mood: happy 11/27/2011 None Full Exam - General 1994 Psychiatric mood and affect Overall: normal mood and affect 11/27/2011 None Full Exam - General 1994 Abdomen abdominal exam Overall: no tenderness 11/27/2011 None Full Exam - General 1994 Abdomen abdominal exam Overall: normal bowel sounds 11/27/2011 None Full Exam - General 1994 Cardiovascular auscultation of heart Overall: regular rate 11/27/2011 None Full Exam - General 1994 Cardiovascular auscultation of heart Overall: normal heart sounds 11/27/2011 None Full Exam - General 1994 Cardiovascular auscultation of heart Overall: no murmurs 11/27/2011 None Full Exam - General 1994 Respiratory respiratory effort/rhythm Overall: normal rate 11/27/2011 None Full Exam - General 1994 Respiratory respiratory effort/rhythm Overall: no retractions 11/27/2011 None Full Exam - General 1994 Respiratory auscultation Overall: breath sounds clear bilaterally 11/27/2011 None Full Exam - General 1994 Constitutional general appearance Overall: well nourished 11/27/2011 None Full Exam - General 1994 Constitutional general appearance Overall: well developed 11/27/2011 None Full Exam - General 1994 Constitutional general appearance Overall: in no acute distress 11/27/2011 None Full Exam - Cardiology Constitutional general appearance Overall: well nourished 10/02/2011 None Full Exam - Cardiology Constitutional general appearance Overall: well developed 10/02/2011 None Full Exam - Cardiology Constitutional general appearance Overall: in no acute distress 10/02/2011 None Full Exam - Cardiology Integument inspection/palpation Location: face 10/02/2011 dry, rough, scaly lesion to left protestant, right protestant, bridge of left nose x 2-removed using electrocautery. Liquid nitrogen use to lesion proximal nasal lesion Full Exam - General 1994 Constitutional general appearance Overall: in no acute distress 09/20/2011 None Full Exam - General 1994 Eyes pupils and irises Overall: pupils equal, round, reactive to light and accomodation 09/20/2011 None Full Exam - General 1995 Eyes conjunctiva /eyelids Overall: conjunctiva clear 09/20/2011 None Full Exam - General 1994 Eyes conjunctiva /eyelids Overall: eyelids normal 09/20/2011 None Full Exam - General 1994 Eyes conjunctiva /eyelids Overall: cornea clear 09/20/2011 None Full Exam - General 1995 Ears/Nose/Throat oral cavity/pharynx/larynx Overall: oropharyngeal mucosa clear 09/20/2011 None Full Exam - General 1995 Ears/Nose/Throat oral cavity/pharynx/larynx Overall: no masses 09/20/2011 None Full Exam - General 1995 Ears/Nose/Throat oral cavity/pharynx/larynx Overall: oral mucosa clear 09/20/2011 None Full Exam - General 1994 Neck thyroid Overall: nontender 2011 None Full Exam - General 1994 Neck thyroid Overall: normal size None Full Exam - General 1994 Neck thyroid Overall: no mass lesions 09/20/2011 None Full Exam - General 1994 Neck thyroid Overall: normal consistency 09/20/2011 None Full Exam - General 1994 Respiratory auscultation Overall: breath sounds clear bilaterally 09/20/2011 None Full Exam - General 1994 Respiratory respiratory effort/rhythm Overall: normal rate 09/20/2011 None Full Exam - General 1994 Respiratory respiratory effort/rhythm Overall: no retractions 09/20/2011 None Full Exam - General 1994 Constitutional general appearance Overall: well nourished 09/20/2011 None Full Exam - General 1994 Constitutional general appearance Overall: well developed 09/20/2011 None Full Exam - General 1994 Cardiovascular extremities Overall: no clubbing 09/20/2011 None Full Exam - General 1994 Cardiovascular auscultation of heart Overall: regular rate 09/20/2011 None Full Exam - General 1994 Cardiovascular auscultation of heart Overall: normal heart sounds 09/20/2011 None Full Exam - General 1994 Abdomen abdominal exam Overall: no tenderness 09/20/2011 None Full Exam - General 1994 Abdomen abdominal exam Overall: normal bowel sounds 09/20/2011 None Full Exam - General 1994 Lymphatic neck nodes Overall: anterior cervical chain benign 09/20/2011 None Full Exam - General 1994 Lymphatic neck nodes Overall: posterior cervical chain benign 09/20/2011 None Full Exam - General 1994 Musculoskeletal head and neck Overall: head atraumatic 09/20/2011 None Full Exam - General 1994 Musculoskeletal head and neck Overall: cervical spine benign 09/20/2011 None Full Exam - General 1994 Musculoskeletal spine, ribs and pelvis Posture: lordosis 09/20/2011 None Full Exam - General 1994 Musculoskeletal spine, ribs and pelvis Sacroiliac joints: a normal exam 09/20/2011 None Full Exam - General 1994 Musculoskeletal digits and nails Digits: a normal exam 09/20/2011 None Full Exam - General 1994 Neurologic deep tendon reflexes Overall: deep tendon reflexes intact 09/20/2011 None Full Exam - General 1994 Neurologic cranial nerves Overall: crainial nerves 2 - 12 grossly intact 09/20/2011 None Full Exam - General 1994 Neurologic motor Overall: normal bulk, tone 09/20/2011 None Full Exam - General 1994 Psychiatric mood and affect Mood: happy 09/20/2011 None Full Exam - General 1994 Psychiatric mood and affect Overall: normal mood and affect 09/20/2011 None Full Exam - General 1994 Psychiatric orientation/consciousness Overall: oriented to person, place and time 09/20/2011 None Procedures Procedure Codes Date ADMIN INFLUENZA VIRUS VAC CPT-4: G0008 11/21/2017 FLU VACC PRSV FREE INC ANTIG CPT-4: 90425 11/21/2017 URINALYSIS NONAUTO W/O SCOPE CPT-4: 53249 11/18/2017 PPPS, SUBSEQ VISIT CPT -4: G0439 08/01/2017 PPPS, SUBSEQ VISIT CPT -4: G0439 01/23/2016 DESTRUCT PREMALG LESION CPT-4: 71649 10/02/2011 DESTRUCT PREMALG LES 2-14 CPT-4: 13614 10/02/2011 Vital Signs Date Vital 01/01/2018 Blood Pressure 1: 164/98 Code : 8480-6 BMI: 25.4 Code : 00379-7 Heart Rate 1 : 64 bpm Height: 5'9" SpO2: 98% Weight: 172 lbs 12/10/2017 Blood Pressure 1: 130/78 Code : 8480-6 BMI: 25.4 Code : 24765-3 Heart Rate 1 : 61 bpm Height: 5'9" SpO2: 98% Weight: 172 lbs 11/05/2017 Blood Pressure 1: 130/70 Code : 8480-6 BMI: 25.8 Code : 67584-9 Heart Rate 1 : 64 bpm Height: 5'9" SpO2: 98% Weight: 175 lbs 10/21/2017 Blood Pressure 1: 142/82 Code : 8480-6 Heart Rate 1: 59 bpm Height: 5'9" SpO2: 98% Weight: 10/18/2017 Blood Pressure 1: 146/78 Code : 8480-6 BMI: 27.2 Code : 51865-4 Heart Rate 1 : 65 bpm Height: 5'9" SpO2: 96% Weight: 184 lbs 09/10/2017 Blood Pressure 1: 122/80 Code : 8480-6 BMI: 27.2 Code : 26553-5 Heart Rate 1 : 68 bpm Height: 5'9" SpO2: 96% Weight: 184 lbs 5 oz 03/14/2017 Blood Pressure 1: 128/80 Code : 8480-6 BMI: 28.1 Code : 86108-5 Heart Rate 1 : 63 bpm Height: 5'9" SpO2: 99% Weight: 190 lbs 09/11/2016 Blood Pressure 1: 120/70 Code : 8480-6 BMI: 28.2 Code : 30676-6 Heart Rate 1 : 56 bpm Height: 5'9" SpO2: 97% Weight: 191 lbs 03/07/2016 Blood Pressure 1: 124/66 Code : 8480-6 BMI: 27.3 Code : 43058-9 Heart Rate 1 : 64 bpm Height: 5'9" SpO2: 98% Weight: 185 lbs 01/23/2016 Blood Pressure 1: 140/66 Code : 8480-6 BMI: 27.2 Code : 62633-4 Heart Rate 1 : 55 bpm Height: 5'9" SpO2: 98% Waist Measure (cm): 86 cm Weight: 184 lbs 11/09/2015 Blood Pressure 1: 132/80 Code : 8480-6 BMI: 26.9 Code : 04399-5 Heart Rate 1 : 60 bpm Height: 5'9" SpO2: 98% Weight: 182 lbs 08/09/2015 Blood Pressure 1: 122/72 Code : 8480-6 BMI: 27.0 Code : 78221-1 Heart Rate 1 : 61 bpm Height: 5'9" SpO2: 98% Weight: 182 lbs 8 oz 07/04/2015 Blood Pressure 1: 132/80 Code : 8480-6 BMI: 27.0 Code : 09269-2 Heart Rate 1 : 52 bpm Height: 5'9" SpO2: 98% Weight: 183 lbs 06/30/2015 Blood Pressure 1: 162/88 Code : 8480-6 Heart Rate 1: 58 bpm 06/14/2015 Blood Pressure 1: 170/96 Code : 8480-6 BMI: 27.3 Code : 09026-0 Heart Rate 1 : 55 bpm Height: 5'9" SpO2: 98% Weight: 185 lbs 03/14/2015 Blood Pressure 1: 152/80 Code : 8480-6 Blood Pressure 1: 136/82 Code: 8480-6 BMI: 27.5 Code: 64328-7 Heart Rate 1: 56 bpm Height: 5'9" SpO2: 98% Weight: 186 lbs 12/13/2014 Blood Pressure 1: 138/80 Code : 8480-6 BMI: 27.0 Code : 13447-1 Heart Rate 1 : 70 bpm Height: 5'9" Weight: 183 lbs 11/16/2014 Blood Pressure 1: 130/70 Code : 8480-6 Heart Rate 1: 64 bpm Height: Weight: 09/09/2014 Blood Pressure 1: 140/90 Code : 8480-6 BMI: 26.3 Code : 82320-6 Heart Rate 1 : 78 bpm Height: 5'9" Weight: 178 lbs 08/25/2014 Blood Pressure 1: 160/90 Code : 8480-6 BMI: 26.3 Code : 99146-9 Heart Rate 1 : 79 bpm Height: 5'9" SpO2: 97% Weight: 178 lbs 06/10/2014 Blood Pressure 1: 142/88 Code : 8480-6 BMI: 26.7 Code : 14262-3 Heart Rate 1 : 63 bpm Height: 5'9" SpO2: 97% Weight: 181 lbs 12/03/2013 Blood Pressure 1: 138/78 Code : 8480-6 BMI: 26.0 Code : 60095-6 Heart Rate 1 : 68 bpm Height: 5'9" SpO2: 98% Weight: 176 lbs 05/25/2013 Blood Pressure 1: 152/84 Code : 8480-6 Blood Pressure 2: 138/86 Code: 8480-6 BMI: 26.1 Code: 86819-2 Heart Rate 1: 80 bpm Height: 5'9" Weight: 177 lbs 11/24/2012 Blood Pressure 1: 124/68 Code : 8480-6 BMI: 25.4 Code : 56965-4 Heart Rate 1 : 80 bpm Height: 5'9" Weight: 172 lbs 05/26/2012 Blood Pressure 1: 120/58 Code : 8480-6 BMI: 26.1 Code : 82910-9 Heart Rate 1 : 72 bpm Height: 5'9" Respiratory Rate: 16 bpm Weight: 177 lbs 11/27/2011 Blood Pressure 1: 116/68 Code : 8480-6 BMI: 25.5 Code : 20271-7 Heart Rate 1 : 60 bpm Height: 5'9" Respiratory Rate: 16 bpm Weight: 172 lbs 8 oz 10/02/2011 Blood Pressure 1: 134/74 Code : 8480-6 Heart Rate 1: 60 bpm 09/20/2011 Blood Pressure 1: 116/60 Code : 8480-6 BMI: 25.1 Code : 73040-5 Heart Rate 1 : 80 bpm Height: 5'9" SpO2: 98% Weight: 170 lbs Functional Status No Functional Status data History of Present Illness Symptom Name Status Result Effective Date Notes hypertension Quality constant 01/01/2018 None hypertension Onset and Resolution sudden in onset 01/01/2018 None hypertension Onset of Symptom 3 days ago 01/01/2018 None neck pain Location on both sides 12/10/2017 None neck pain Onset and Resolution ongoing 12/10/2017 None neck pain Quality worsening 12/10/2017 None neck pain Limitation on Activities moderately limits activities 12/10/2017 None neck pain Alleviating Factors cold exposure 12/10/2017 None neck pain Alleviating Factors medication 12/10/2017 None neck pain Triggers activity 12/10/2017 None neck pain Significant Medical Conditions spinal stenosis 12/10/2017 None neck pain Severity moderate 12/10/2017 None hypertension Quality chronic 11/05/2017 None hypertension Onset and Resolution ongoing 11/05/2017 None hypertension Onset of Symptom during adulthood 11/05/2017 None hypertension Blood Pressure Values patient checking blood pressure at home - did not bring in readings 11/05/2017 -Occasionally hypertension Triggers no known associated factors 11/05/2017 None hypertension Alleviating Factors medication 11/05/2017 None hypertension Pertinent Findings Denies anxiety 11/05/2017 None hypertension Pertinent Findings Denies decreased energy 11/05/2017 None hypertension Pertinent Findings Denies dizziness 11/05/2017 None hypertension Pertinent Findings Denies dyspnea 11/05/2017 None hypertension Pertinent Findings Denies edema 11/05/2017 None hypertension Pertinent Findings Denies nausea 11/05/2017 None dyskinesia or tremor Location on the right hand 11/05/2017 None dyskinesia or tremor Quality intermittent 11/05/2017 None dyskinesia or tremor Onset and Resolution ongoing 11/05/2017 None dyskinesia or tremor Pertinent Findings Denies dyspnea 11/05/2017 None Hospital Follow Up _ Other: severe neck pain 10/21/2017 None Hospital Follow Up Onset and Resolution worsening 10/21/2017 None Hospital Follow Up Alleviating Factors medication 10/21/2017 None neck pain Location diffusely 10/18/2017 None neck pain Quality aching 10/18/2017 None neck pain Quality constant 10/18/2017 None neck pain Quality squeezing 10/18/2017 None gastroesophageal reflux Quality constant 10/18/2017 None gastroesophageal reflux Quality heartburn 10/18/2017 None gastroesophageal reflux Onset and Resolution sudden in onset 10/18/2017 None gastroesophageal reflux Onset of Symptom _ months ago 10/18/2017 None neck pain Onset and Resolution ongoing 10/18/2017 None neck pain Onset of Symptom _ years ago 10/18/2017 None neck pain Limitation on Activities moderately limits activities 10/18/2017 None neck pain Frequency of Episodes decreasing 10/18/2017 None neck pain Frequency of Episodes on and off 10/18/2017 None neck pain Triggers no known associated factors 10/18/2017 None neck pain Severity moderate 10/18/2017 None hypertension Quality chronic 09/10/2017 None hypertension Onset and Resolution ongoing 09/10/2017 None hypertension Onset of Symptom during adulthood 09/10/2017 None hypertension Blood Pressure Values patient checking blood pressure at home - did not bring in readings 09/10/2017 -Occasionally hypertension Triggers no known associated factors 09/10/2017 None hypertension Alleviating Factors medication 09/10/2017 None hypertension Pertinent Findings Denies anxiety 09/10/2017 None hypertension Pertinent Findings Denies decreased energy 09/10/2017 None hypertension Pertinent Findings Denies dizziness 09/10/2017 None hypertension Pertinent Findings Denies dyspnea 09/10/2017 None hypertension Pertinent Findings Denies edema 09/10/2017 None hypertension Pertinent Findings Denies nausea 09/10/2017 None dyskinesia or tremor Location on the right hand 09/10/2017 None dyskinesia or tremor Quality intermittent 09/10/2017 None dyskinesia or tremor Onset and Resolution ongoing 09/10/2017 None dyskinesia or tremor Pertinent Findings Denies dyspnea 09/10/2017 None Annual Medicare Wellness Exam Alcohol Use drinks 1-2 days per week 08/01/2017 None Annual Medicare Wellness Exam Aspirin Use yes 08/01/2017 occasional Annual Medicare Wellness Exam Blood Glucose (self reported) desireable (below 100) 08/01/2017 None Annual Medicare Wellness Exam Blood Pressure (self reported ) borderline (120/80 - 139/89) 08/01/2017 None Annual Medicare Wellness Exam Cholesterol (self reported) don't know 08/01/2017 None Annual Medicare Wellness Exam Depression (last 6 months) almost never 08/01/2017 None Annual Medicare Wellness Exam Depression or Hopelessness almost never 08/01/2017 None Annual Medicare Wellness Exam Describe Your Health very good 08/01/2017 None Annual Medicare Wellness Exam Exercise Habits exercises 7 days per week 08/01/2017 None Annual Medicare Wellness Exam Handling Stress often has problems coping 08/01/2017 None Annual Medicare Wellness Exam Hemaglobin A-1C (self reported ) don't know 08/01/2017 None Annual Medicare Wellness Exam Hours of Sleep 6-7 08/01/2017 None Annual Medicare Wellness Exam Interaction with Friends yes 08/01/2017 None Annual Medicare Wellness Exam Interests & Pleasure some of the time 08/01/2017 None Annual Medicare Wellness Exam Life Satisfaction satisfied 08/01/2017 None Annual Medicare Wellness Exam Motor Vehicle Safety always fastens seat belt: y 08/01/2017 None Annual Medicare Wellness Exam Nutrition servings of vegetables / fruit per day: 1-2 08/01/2017 None Annual Medicare Wellness Exam Smoking and Tobacco Use non smoker 08/01/2017 None Annual Medicare Wellness Exam Social & Emotional Support usually 08/01/2017 None Annual Medicare Wellness Exam Stress some of the time 08/01/2017 None Annual Medicare Wellness Exam Sun Exposure protects skin when outdoors: n 08/01/2017 None hypertension Quality chronic 03/14/2017 None hypertension Onset and Resolution ongoing 03/14/2017 None hypertension Onset of Symptom during adulthood 03/14/2017 None hypertension Blood Pressure Values patient checking blood pressure at home - did not bring in readings 03/14/2017 -Occasionally hypertension Triggers no known associated factors 03/14/2017 None hypertension Alleviating Factors medication 03/14/2017 None hypertension Pertinent Findings Denies dizziness 03/14/2017 None hypertension Pertinent Findings Denies dyspnea 03/14/2017 None hypertension Pertinent Findings Denies edema 03/14/2017 None hypertension Pertinent Findings Denies nausea 03/14/2017 None dyskinesia or tremor Location on the right hand 03/14/2017 None dyskinesia or tremor Quality intermittent 03/14/2017 None dyskinesia or tremor Onset and Resolution ongoing 03/14/2017 None dyskinesia or tremor Pertinent Findings Denies dyspnea 03/14/2017 None hypertension Pertinent Findings Denies decreased energy 03/14/2017 None hypertension Pertinent Findings Denies anxiety 03/14/2017 None hypertension Quality chronic 09/11/2016 None hypertension Onset and Resolution ongoing 09/11/2016 None hypertension Onset of Symptom during adulthood 09/11/2016 None hypertension Blood Pressure Values patient checking blood pressure at home - did not bring in readings 09/11/2016 -Occasionally hypertension Triggers no known associated factors 09/11/2016 None hypertension Alleviating Factors medication 09/11/2016 None hypertension Pertinent Findings Denies dizziness 09/11/2016 None hypertension Pertinent Findings Denies dyspnea 09/11/2016 None hypertension Pertinent Findings Denies edema 09/11/2016 None hypertension Pertinent Findings Denies nausea 09/11/2016 None hypertension Quality chronic 03/07/2016 None hypertension Onset and Resolution ongoing 03/07/2016 None hypertension Onset of Symptom during adulthood 03/07/2016 None hypertension Blood Pressure Values patient checking blood pressure at home - did not bring in readings 03/07/2016 -Occasionally hypertension Triggers no known associated factors 03/07/2016 None hypertension Alleviating Factors medication 03/07/2016 None hypertension Pertinent Findings Denies dizziness 03/07/2016 None hypertension Pertinent Findings Denies dyspnea 03/07/2016 None hypertension Pertinent Findings Denies edema 03/07/2016 None hypertension Pertinent Findings Denies nausea 03/07/2016 None dyskinesia or tremor Location on the right hand 03/07/2016 None dyskinesia or tremor Quality intermittent 03/07/2016 None dyskinesia or tremor Onset and Resolution ongoing 03/07/2016 None dyskinesia or tremor Pertinent Findings Denies dyspnea 03/07/2016 None Annual Medicare Wellness Exam Alcohol Use does not drink any alcohol 01/23/2016 None Annual Medicare Wellness Exam Aspirin Use yes 01/23/2016 None Annual Medicare Wellness Exam Blood Glucose (self reported) don't know 01/23/2016 None Annual Medicare Wellness Exam Blood Pressure (self reported ) borderline (120/80 - 139/89) 01/23/2016 None Annual Medicare Wellness Exam Cholesterol (self reported) don't know 01/23/2016 None Annual Medicare Wellness Exam Depression (last 6 months) almost never 01/23/2016 None Annual Medicare Wellness Exam Depression or Hopelessness almost never 01/23/2016 None Annual Medicare Wellness Exam Describe Your Health good 01/23/2016 None Annual Medicare Wellness Exam Exercise Habits does not exercise 01/23/2016 None Annual Medicare Wellness Exam Handling Stress has problems coping 01/23/2016 None Annual Medicare Wellness Exam Hemaglobin A-1C (self reported ) don't know 01/23/2016 None Annual Medicare Wellness Exam Hours of Sleep 6 01/23/2016 None Annual Medicare Wellness Exam Interaction with Friends yes 01/23/2016 None Annual Medicare Wellness Exam Interests & Pleasure almost all of the time 01/23/2016 None Annual Medicare Wellness Exam Life Satisfaction satisfied 01/23/2016 None Annual Medicare Wellness Exam Motor Vehicle Safety always fastens seat belt: y 01/23/2016 None Annual Medicare Wellness Exam Motor Vehicle Safety drives after drinking: n 01/23/2016 None Annual Medicare Wellness Exam Motor Vehicle Safety rides with someone who has been drinking: n 2015 None Annual Medicare Wellness Exam Nutrition servings of fried food / high fat foods per day: 1 2015 None Annual Medicare Wellness Exam Nutrition servings of high fiber / whole grain per day: 1 01/23/2016 None Annual Medicare Wellness Exam Nutrition servings of vegetables / fruit per day: 1 01/23/2016 None Annual Medicare Wellness Exam Smoking and Tobacco Use non smoker 01/23/2016 None Annual Medicare Wellness Exam Social & Emotional Support always 01/23/2016 None Annual Medicare Wellness Exam Stress some of the time 01/23/2016 None Annual Medicare Wellness Exam Sun Exposure protects skin when outdoors: y 01/23/2016 None hypertension Quality chronic 11/09/2015 None hypertension Onset and Resolution ongoing 11/09/2015 None hypertension Onset of Symptom during adulthood 11/09/2015 None hypertension Triggers no known associated factors 11/09/2015 None hypertension Alleviating Factors medication 11/09/2015 None hypertension Pertinent Findings Denies dizziness 11/09/2015 None hypertension Pertinent Findings Denies dyspnea 11/09/2015 None hypertension Pertinent Findings Denies edema 11/09/2015 None hypertension Pertinent Findings Denies nausea 11/09/2015 None hypertension Blood Pressure Values patient checking blood pressure at home - did not bring in readings 11/09/2015 -Occasionally hoarseness Quality intermittent 11/09/2015 None hoarseness Quality reduced ability to maintain tone 11/09/2015 None hoarseness Quality reduced volume 11/09/2015 None hoarseness Onset and Resolution ongoing 11/09/2015 None hoarseness Onset of Symptom 2-3 months ago 11/09/2015 None dyskinesia or tremor Location on the right hand 11/09/2015 None dyskinesia or tremor Quality intermittent 11/09/2015 None dyskinesia or tremor Onset and Resolution ongoing 11/09/2015 None dyskinesia or tremor Onset of Symptom 1+ months ago 11/09/2015 None dyskinesia or tremor Pertinent Findings Denies dyspnea 11/09/2015 None hypertension Quality chronic 08/09/2015 None hypertension Onset and Resolution ongoing 08/09/2015 None hypertension Onset of Symptom during adulthood 08/09/2015 None hypertension Blood Pressure Values pt checking blood pressure - see scanned document 08/09/2015 None hypertension Triggers no known associated factors 08/09/2015 None hypertension Alleviating Factors medication 08/09/2015 None hypertension Pertinent Findings Denies dizziness 08/09/2015 None hypertension Pertinent Findings Denies dyspnea 08/09/2015 None hypertension Pertinent Findings Denies edema 08/09/2015 None hypertension Pertinent Findings Denies nausea 08/09/2015 None hypertension Quality chronic 07/04/2015 None hypertension Onset and Resolution ongoing 07/04/2015 None hypertension Onset of Symptom during adulthood 07/04/2015 None hypertension Blood Pressure Values pt checking blood pressure - see scanned document 07/04/2015 None hypertension Triggers no known associated factors 07/04/2015 None hypertension Alleviating Factors medication 07/04/2015 None hypertension Pertinent Findings dizziness 07/04/2015 None hypertension Pertinent Findings Denies dyspnea 07/04/2015 None hypertension Pertinent Findings Denies edema 07/04/2015 None hypertension Pertinent Findings Denies nausea 07/04/2015 None hypertension Quality chronic 06/14/2015 None hypertension Onset and Resolution ongoing 06/14/2015 None hypertension Onset of Symptom during adulthood 06/14/2015 None hypertension Triggers no known associated factors 06/14/2015 None hypertension Alleviating Factors medication 06/14/2015 None hypertension Pertinent Findings dizziness 06/14/2015 None hypertension Pertinent Findings Denies dyspnea 06/14/2015 None hypertension Pertinent Findings Denies edema 06/14/2015 None hypertension Blood Pressure Values pt checking blood pressure - see scanned document 06/14/2015 None hypertension Pertinent Findings Denies nausea 06/14/2015 None breast complaint Quality improving 06/14/2015 since stopping his spironolactone breast complaint Exacerbating Factors medication 06/14/2015 None hypertension Quality chronic 03/14/2015 None hypertension Onset and Resolution ongoing 03/14/2015 None hypertension Onset of Symptom during adulthood 03/14/2015 None hypertension Triggers no known associated factors 03/14/2015 None hypertension Pertinent Findings Denies dizziness 03/14/2015 None hypertension Pertinent Findings Denies dyspnea 03/14/2015 None hypertension Pertinent Findings Denies edema 03/14/2015 None hypertension Blood Pressure Values patient checking blood pressure at home - did not bring in readings 03/14/2015 None hypertension Alleviating Factors medication 03/14/2015 None back pain Onset and Resolution ongoing 03/14/2015 None back pain Frequency of Episodes increasing 03/14/2015 None back pain Onset of Symptom 2-3 months ago 03/14/2015 None back pain Mechanism of injury unknown 03/14/2015 None blood pressure followup Onset and Resolution ongoing 12/13/2014 None blood pressure followup Blood Pressure Values pt checking blood pressure - see scanned document 12/13 Pt reports that his blood pressure is running fairly good at home. blood pressure followup Pertinent Findings Denies dizziness 12/13/2014 None blood pressure followup Quality chronic 12/13/2014 None hypertension Quality chronic 11/16/2014 None hypertension Onset and Resolution ongoing 11/16/2014 None hypertension Onset of Symptom during adulthood 11/16/2014 None hypertension Blood Pressure Values pt checking blood pressure - see scanned document 11/16/2014 before medications 150 - 165/80-90 and after medications in the 130 - 140/70 range. hypertension Quality chronic 09/09/2014 None hypertension Onset and Resolution ongoing 09/09/2014 None hypertension Onset of Symptom during adulthood 09/09/2014 None hypertension Triggers no known associated factors 09/09/2014 None hypertension Pertinent Findings Denies dizziness 09/09/2014 None hypertension Pertinent Findings Denies dyspnea 09/09/2014 None hypertension Pertinent Findings Denies edema 09/09/2014 None hypertension Blood Pressure Values pt checking blood pressure - see scanned document 09/09/2014 None hypertension Onset and Resolution ongoing 08/25/2014 None hypertension Blood Pressure Values patient checking blood pressure at home - did not bring in readings 08/25/2014 None hypertension Onset of Symptom 2 weeks ago 08/25/2014 None hypertension Pertinent Findings dizziness 08/25/2014 headace hypertension Quality worsening 08/25/2014 None hypertension Triggers stress 08/25/2014 None hypertension Exacerbating Factors stress 08/25/2014 None hypertension Exacerbating Factors change in dietary habits 08/25/2014 None hypertension Quality chronic 06/10/2014 None hypertension Onset and Resolution ongoing 06/10/2014 None hypertension Onset of Symptom during adulthood 06/10/2014 None hypertension Blood Pressure Values not checking blood pressure at home 06/10/2014 None hypertension Triggers no known associated factors 06/10/2014 None hypertension Pertinent Findings Denies dizziness 06/10/2014 None hypertension Pertinent Findings Denies dyspnea 06/10/2014 None hypertension Pertinent Findings Denies edema 06/10/2014 None hypertension Quality chronic 12/03/2013 None hypertension Onset and Resolution ongoing 12/03/2013 None hypertension Onset of Symptom during adulthood 12/03/2013 None hypertension Blood Pressure Values not checking blood pressure at home 12/03/2013 None hypertension Triggers no known associated factors 12/03/2013 None hypertension Pertinent Findings Denies dizziness 12/03/2013 None hypertension Pertinent Findings Denies dyspnea 12/03/2013 None hypertension Pertinent Findings Denies edema 12/03/2013 None hypertension Blood Pressure Values not checking blood pressure at home 05/25/2013 None hypertension Pertinent Findings Denies dizziness 05/25/2013 None hypertension Pertinent Findings Denies dyspnea 05/25/2013 None hypertension Pertinent Findings Denies edema 05/25/2013 None hypertension Quality chronic 05/25/2013 None hypertension Onset and Resolution ongoing 05/25/2013 None hypertension Onset of Symptom during adulthood 05/25/2013 None hypertension Triggers no known associated factors 05/25/2013 None nausea Onset and Resolution gradual in onset 11/24/2012 None nausea Onset and Resolution ongoing 11/24/2012 None nausea Pertinent Findings heartburn 11/24/2012 None nausea Pertinent Findings Denies weight loss 11/24/2012 None nausea Quality acute 11/24/2012 None nausea Onset of Symptom 1 weeks ago 11/24/2012 None nausea Triggers ill contacts 11/24/2012 had bout of diarrhea recently. nausea Exacerbating Factors eating 11/24/2012 None hypertension Onset and Resolution ongoing 11/24/2012 None hypertension Quality stable 11/24/2012 None hypertension Quality chronic 11/24/2012 None hypertension Blood Pressure Values patient checking blood pressure at home - did not bring in readings 11/24/2012 None hypertension Pertinent Findings Denies dizziness 11/24/2012 None hypertension Pertinent Findings Denies dyspnea 11/24/2012 None hypertension Pertinent Findings Denies edema 11/24/2012 None hypertension Pertinent Findings Denies tachycardia 11/24/2012 None hypertension Pertinent Findings Denies palpitations 11/24/2012 None hypertension Pertinent Findings Denies orthostatic hypotension 11/24/2012 None hypertension Severity mild 11/24/2012 None hypertension Alleviating Factors medication 11/24/2012 None finger pain Location around the right thumbnail 05/26/2012 c/o right thumb locks hypertension Quality chronic 05/26/2012 None hypertension Onset and Resolution ongoing 05/26/2012 None finger pain Alleviating Factors NSAID's 05/26/2012 None finger pain Exacerbating Factors finger extension 05/26/2012 None finger pain Exacerbating Factors finger flexion 05/26/2012 None finger pain Limitation on Activities does not limit activities 05/26/2012 None finger pain Quality chronic 05/26/2012 None hypertension Quality stable 05/26/2012 None hypertension Blood Pressure Values patient checking blood pressure at home - did not bring in readings 05/26/2012 None hypertension Severity mild 05/26/2012 None hypertension Frequency of Episodes unchanged 05/26/2012 None hypertension Triggers no known associated factors 05/26/2012 None hypertension Alleviating Factors medication 05/26/2012 None hypertension Pertinent Findings Denies anxiety 05/26/2012 None hypertension Pertinent Findings Denies decreased energy 05/26/2012 None hypertension Pertinent Findings Denies dizziness 05/26/2012 None hypertension Pertinent Findings Denies edema 05/26/2012 None hypertension Pertinent Findings Denies lethargy 05/26/2012 None hypertension Quality stable 11/27/2011 None hypertension Onset and Resolution ongoing 11/27/2011 None hypertension Blood Pressure Values patient checking blood pressure at home - did not bring in readings 11/27/2011 None hypertension Severity mild 11/27/2011 None hypertension Frequency of Episodes unchanged 11/27/2011 None hypertension Triggers no known associated factors 11/27/2011 None hypertension Alleviating Factors medication 11/27/2011 None hypertension Pertinent Findings Denies anxiety 11/27/2011 None hypertension Pertinent Findings Denies decreased energy 11/27/2011 None hypertension Pertinent Findings Denies dizziness 11/27/2011 None hypertension Pertinent Findings Denies edema 11/27/2011 None hypertension Pertinent Findings Denies lethargy 11/27/2011 None skin lesion Quality enlarging 10/02/2011 None skin lesion Quality acute 10/02/2011 several scabbed areas on face skin lesion Onset and Resolution ongoing 10/02/2011 None skin lesion Severity mild 10/02/2011 None skin lesion Frequency of Episodes increasing 10/02/2011 None skin lesion Alleviating Factors no alleviating factors 10/02/2011 None hypertension Quality stable 09/20/2011 None hypertension Onset and Resolution ongoing 09/20/2011 None hypertension Blood Pressure Values patient checking blood pressure at home - did not bring in readings 09/20/2011 None hypertension Severity mild 09/20/2011 None hypertension Frequency of Episodes unchanged 09/20/2011 None shoulder pain Quality stable 09/20/2011 None shoulder pain Limitation on Activities moderately limits activities 09/20/2011 unable to reach back and up shoulder pain Frequency of Episodes unchanged 09/20/2011 None shoulder pain Mechanism of injury unknown 09/20/2011 None hypertension Pertinent Findings Denies anxiety 09/20/2011 None hypertension Pertinent Findings Denies dizziness 09/20/2011 None hypertension Pertinent Findings Denies decreased energy 09/20/2011 None hypertension Pertinent Findings Denies edema 09/20/2011 None hypertension Pertinent Findings Denies lethargy 09/20/2011 None hypertension Triggers no known associated factors 09/20/2011 None hypertension Alleviating Factors medication 09/20/2011 None shoulder pain Pertinent Findings loss of strength 09/20/2011 None shoulder pain Pertinent Findings loss of range of motion 09/20/2011 None shoulder pain Pertinent Findings stiffness 09/20/2011 None Advance Directives No Advance Directive data Encounters Encounter Performer Location Codes Date EST. PATIENT, LEVEL III Diagnosis: Cervicalgia[ICD10: M54.2] Diagnosis: Muscle spasm of back[ICD10: M62.830] Diagnosis: Essential (primary) hypertension[ICD10: I10] [facility] CPT-4: 96438 01/01/2018 ([id number]) 27167 EST. PATIENT, LEVEL III Diagnosis: Cervicalgia[ICD10: M54.2] Diagnosis: Muscle spasm of back[ICD10: M62.830] Michelle Chau MD, [facility] CPT-4: 86064 12/10/2017 ([id number]) 92404 EST. PATIENT, LEVEL IV Diagnosis: Parkinson's disease[ICD10: G20] Diagnosis: Essential (primary) hypertension[ICD10: I10] Diagnosis: Gastro-esophageal reflux disease without esophagitis[ICD10: K21.9] Bernadette Chau MD [facility] CPT-4: 74086 11/05/2017 ([id number]) 80448 EST. PATIENT, LEVEL III Diagnosis: Muscle spasm of back[ICD10: M62.830] Diagnosis: Essential (primary) hypertension[ICD10: I10] Bernadette Chau MD [facility] CPT-4: 72784 10/21/2017 ([id number]) 76626 EST. PATIENT, LEVEL III Diagnosis: Gastro-esophageal reflux disease without esophagitis[ICD10: K21.9] Diagnosis: Cervicalgia[ICD10: M54.2] Michelle Chau MD, [facility] CPT-4: 87481 10/18/2017 ([id number]) 23127 EST. PATIENT, LEVEL IV Diagnosis: Essential (primary) hypertension[ICD10: I10] Diagnosis: Essential tremor[ICD10: G25.0] Bernadette Chau MD, [facility] CPT- 4: 33480 09/10/2017 ([id number]) 01199 EST. PATIENT, LEVEL IV Diagnosis: Essential (primary) hypertension[ICD10: I10] Diagnosis: Essential tremor[ICD10: G25.0] Bernadette Chau MD [facility] CPT- 4: 41596 03/14/2017 ([id number]) 25359 EST. PATIENT, LEVEL IV Diagnosis: Essential (primary) hypertension[ICD10: I10] Diagnosis: Essential tremor[ICD10: G25.0] Bernadette Chau MD, [facility] CPT- 4: 76077 09/11/2016 ([id number]) 22727 EST. PATIENT, LEVEL IV Diagnosis: Essential (primary) hypertension[ICD10: I10] Diagnosis: Essential tremor[ICD10: G25.0] Bernadette Chau MD, [facility] CPT- 4: 19682 03/07/2016 ([id number]) 44825 EST. PATIENT, LEVEL III Diagnosis: Essential (primary) hypertension[ICD10: I10] Diagnosis: Essential tremor[ICD10: G25.0] Bernadette Chau MD [facility] CPT- 4: 51939 11/09/2015 ([id number]) 26371 EST. PATIENT, LEVEL III Diagnosis: Essential (primary) hypertension[ICD10: I10] Bernadette Chau MD [facility] CPT-4: 34996 08/09/2015 ([id number]) 23656 EST. PATIENT, LEVEL III Diagnosis: Essential (primary) hypertension[ICD10: I10] Bernadette Chau MD [facility] CPT-4: 04914 07/04/2015 ([id number]) Miscellaneous no charge Diagnosis: Essential (primary) hypertension[ICD10: I10] Bernadette Chau MD [facility] CPT-4: 09228 06/30/2015 ([id number]) 34074 EST. PATIENT, LEVEL IV Diagnosis: Essential (primary) hypertension[ICD10: I10] Diagnosis: Male erectile disorder[ICD10: F52.21] Diagnosis: Gastro-esophageal reflux disease without esophagitis[ICD10: K21.9] Bernadette Chau MD [facility] CPT-4: 90791 06/14/2015 ([id number]) 28139 EST. PATIENT, LEVEL IV Diagnosis: Essential (primary) hypertension[ICD10: I10] Diagnosis: Low back pain[ICD10: M54.5] Diagnosis: Malignant neoplasm of prostate[ICD10: C61] Bernadette Chau MD [facility] CPT-4: 18325 03/14/2015 ([id number]) 65751 EST. PATIENT, LEVEL III Diagnosis: Essential (primary) hypertension[ICD10: I10] Bernadette Chau MD [facility] CPT-4: 89021 12/13/2014 ([id number]) 39384 EST. PATIENT, LEVEL II Diagnosis: ESSENTIAL HYPERTENSION[ICD9: 401.9] Bernadette Chau MD [facility] CPT-4: 56580 11/16/2014 ([id number]) 07947 EST. PATIENT, LEVEL III Diagnosis: ESSENTIAL HYPERTENSION[ICD9: 401.9] Diagnosis: GENERALIZED ANXIETY DISEASE[ICD9: 300.02] Bernadette Chau MD, [facility] CPT-4: 00233 09/09/2014 ([id number]) 65939 EST. PATIENT, LEVEL IV Diagnosis: ESSENTIAL HYPERTENSION[ICD9: 401.9] Diagnosis: GENERALIZED ANXIETY DISEASE[ICD9: 300.02] Bernadette Chau MD, [facility] CPT-4: 15106 08/25/2014 ([id number]) 42219 EST. PATIENT, LEVEL IV Diagnosis: ESSENTIAL HYPERTENSION[ICD9: 401.9] Diagnosis: GENERALIZED ANXIETY DISEASE[ICD9: 300.02] Diagnosis: ESOPHAGEAL REFLUX[ICD9: 530.81] Bernadette Chau MD [facility] CPT- 4: 85994 06/10/2014 ([id number]) 35874 EST. PATIENT, LEVEL IV Diagnosis: ESSENTIAL HYPERTENSION[ICD9: 401.9] Diagnosis: ESOPHAGEAL REFLUX[ICD9: 530.81] Bernadette Chau MD, [facility] CPT- 4: 03926 12/03/2013 ([id number]) 28605 EST. 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 PATIENT, LEVEL IV Diagnosis: ESSENTIAL HYPERTENSION[SNOMED: 00979183] Diagnosis: Nausea[ICD9: 787.02] Diagnosis: ESOPHAGEAL REFLUX[ICD9: 530.81] Bernadette Chau MD, [facility] CPT- 4: 84760 11/24/2012 ([id number]) 58741 EST. 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 PATIENT, LEVEL III Diagnosis: ESSENTIAL HYPERTENSION[SNOMED: 90127496] [facility] CPT-4: 51093 11/27/2011 ([id number]) OFFICE VISIT, NEW - LEVEL 3 Diagnosis: ESSENTIAL HYPERTENSION[SNOMED: 46046981] Diagnosis: Impotence[ICD9: 607.84] Diagnosis: Osteoarthritis[ICD9: 715.90] [facility] CPT- 4: 29582 09/20/2011 Plan of Care Planned Activity Notes Codes Status Date Visit Plan: Hypertension - uncontrolled - Discussed with Dr. Chau - the patient's medications have been modified as documented in the visit note. The patient has been counseled to cut back on salt in diet for a no added salt diet, low fat diet, start an exercise program with low weight bearing exercises and higher aerobic activity for heart health. The patient is to check blood pressure readings as an outpatient and either fax, call, or email the readings to the office next week for practitioner to review. The pt is to call for acute concerns. Neck Pain- muscle spasms- pt is to continue with PT and keep appointment with Dr. Moy - will start gabapentin 01/01/2018 Appointment: Kelly Mancera WPtel[facility] (15 min) Moderate 01/01/2018 Patient Education: Patient Medication Summary Completed 01/01/2018 Visit Plan: Neck Pain- muscle spasms- recommend PT work with patient -they have [facility] -will contact them to start with neck exercise/stretches- refill valium for prn use and use as directed only- patient verbalized understanding of plan. 12/10/2017 Appointment: Michelle Dutton [facility]Ptel: [phone] [phone] [place] (15 min) Moderate 12/10/2017 Patient Education: Patient Medication Summary Completed 12/10/2017 Appointment: Injection 11/21/2017 Patient Education: Patient Medication Summary Completed 11/21/2017 Appointment: Lab Draw 11/18/2017 Patient Education: Patient Medication Summary Completed 11/18/2017 Visit Plan: Parkinson's disease - increase the requip ( ropinirole) from 0.25mg twice daily to 0.5mg twice daily. Continue with physical therapy with home health GERD - finish out the dexilant pills and then you can restart the pepcid ac complete. Hypertension - well controlled - continue with current medications, continue with no added salt diet. Pt has been encouraged to exercise daily. The pt has been advised to call the office if there are any acute concerns about change in blood pressure readings at home. 11/05/2017 Appointment: [facility] [phone] [facility] [place] (15 min) Moderate 11/05/2017 Patient Education: Patient Medication Summary Completed 11/05/2017 Appointment: [facility]el[facility] [phone] [facility] (15 min) Moderate 10/22/2017 Visit Plan: Parkinson's Disease - pt has diagnosis of Parkinson's disease with movement disorder impinging upon daily activities. The pt is to be on sinemet as directed, and medications to be adjusted as appropriate for alleviation of the impairment of ADL's. Pt or pt's family is to alert this office if symptoms worsen. Neck Pain- - diazepam 2.5mg nightly x 3 nights and recommended patient to use voltaren to neck/upper back. Physical therapy to be ordered through home health. 10/21/2017 Patient Education: Patient Medication Summary Completed 10/21/2017 Visit Plan: Esophageal Reflux - the patient has been counseled against excessive intake of caffeine, spicy foods, peppermint, and cinnamon - all of which can exacerbate esophageal reflux. The patient is to take medications as prescribed and call the office if the symptoms are not improving. Neck Pain- pt to start with aspercreme or biofreeze to neck three times daily and start neck exercises daily. 10/18/2017 Appointment: iMchelle Dutton WPtel: [phone] [phone] [place] (30 min) Complex 10/18/2017 Patient Education: Patient Medication Summary Completed 10/18/2017 Visit Plan: Hypertension - well controlled - continue with current medications, continue with no added salt diet. Pt has been encouraged to exercise daily. The pt has been advised to call the office if there are any acute concerns about change in blood pressure readings at home. Parkinson's Disease - pt has diagnosis of Parkinson's disease with movement disorder impinging upon daily activities. The pt is to be on sinemet as directed, and medications to be adjusted as appropriate for alleviation of the impairment of ADL's. Pt or pt's family is to alert this office if symptoms worsen. 09/10/2017 Appointment: [facility]au [facility]el[facility] [phone] [facility] (15 min) Moderate 09/10/2017 Patient Education: Patient Medication Summary Completed 09/10/2017 Visit Plan: Medicare Exam - today we discussed the patients past history, immunizations, preventative exams/evaluations - colonoscopy, fecal occult blood testing, routine labs for renal function, glucose, cholesterol, osteoporosis evaluations, cardiovascular testing and cancer screenings. We have also discussed mental health and the signs/symptoms of depression. The patient was advised of home safety evaluations and the need to make sure that as the aging process continues, we need to be aware of different ways to make the home a safer place to reside. The patient has also been counseled that exercise is necessary - and of utmost importance as we age to help decrease fall risk and to maintain independece in the home. Today we discussed the need for the patient to create paperwork for Advanced directives as well as for the patient to provide this office with a copy of her DOPA paperwork for health care surrogate. 08/01/2017 Patient Education: Patient Medication Summary Completed 08/01/2017 Visit Plan: Hypertension - well controlled - continue with current medications, continue with no added salt diet. Pt has been encouraged to exercise daily. The pt has been advised to call the office if there are any acute concerns about change in blood pressure readings at home. Tremor - continue supportive care. 03/14/2017 Appointment: [facility]au [facility]Ptel[facility] [phone] [facility] [place] (15 min) Moderate 03/14/2017 Patient Education: Patient Medication Summary Completed 03/14/2017 Visit Plan: Hypertension - well controlled - continue with current medications, continue with no added salt diet. Pt has been encouraged to exercise daily. The pt has been advised to call the office if there are any acute concerns about change in blood pressure readings at home. Essential Tremor - continue with supportive care, no medication needed at this time 09/11/2016 Appointment: Bernadette Chau WPtel: [phone] [facility] (15 min) Moderate 09/11/2016 Patient Education: Patient Medication Summary Completed 09/11/2016 Visit Plan: Hypertension - well controlled - continue with current medications, continue with no added salt diet. Pt has been encouraged to exercise daily. The pt has been advised to call the office if there are any acute concerns about change in blood pressure readings at home. Tremor - essential - benign - monitor symptoms. 03/07/2016 Appointment: Bernadette Chau WPtel[facility] [phone] [facility] (15 min) Moderate 03/07/2016 Patient Education: Patient Medication Summary Completed 03/07/2016 Visit Plan: Medicare Exam - today we discussed the patients past history, immunizations, preventative exams/evaluations - colonoscopy, fecal occult blood testing, routine labs for renal function, glucose, cholesterol, osteoporosis evaluations, cardiovascular testing and cancer screenings. We have also discussed mental health and the signs/symptoms of depression. The patient was advised of home safety evaluations and the need to make sure that as the aging process continues, we need to be aware of different ways to make the home a safer place to reside. The patient has also been counseled that exercise is necessary - and of utmost importance as we age to help decrease fall risk and to maintain independece in the home. Today we discussed the need for the patient to create paperwork for Advanced directives as well as for the patient to provide this office with a copy of her DOPA paperwork for health care surrogate. 01/23/2016 Appointment: Kelly Mancera [facility]Ptel: [phone] [facility] [facility] - Annual Wellness Visit 01/23/2016 Patient Education: Patient Medication Summary Completed 01/23/2016 Visit Plan: Hypertension - well controlled - continue with current medications, continue with no added salt diet. Pt has been encouraged to exercise daily. The pt has been advised to call the office if there are any acute concerns about change in blood pressure readings at home. Tremor - benign - essential tremor. 11/09/2015 Appointment: Bernadette Chau WPtel: [facility] (15 min) Moderate 11/09/2015 Patient Education: Patient Medication Summary Completed 11/09/2015 Patient Education: Hypertension Completed 11/09/2015 Visit Plan: Hypertension - well controlled - continue with current medications, continue with no added salt diet. Pt has been encouraged to exercise daily. The pt has been advised to call the office if there are any acute concerns about change in blood pressure readings at home. 08/09/2015 Appointment: Bernadette Chau WPtel: [phone] [facility] (15 min) Moderate 08/09/2015 Patient Education: Patient Medication Summary Completed 08/09/2015 Patient Education: Hypertension Completed 08/09/2015 Visit Plan: Hypertension - uncontrolled - the patient's medications have been modified as documented in the visit note. The patient has been counseled to cut back on salt in diet for a no added salt diet, low fat diet, start an exercise program with low weight bearing exercises and higher aerobic activity for heart health. The patient is to check blood pressure readings as an outpatient and either fax, call, or email the readings to the office next week for practitioner to review. The pt is to call for acute concerns. 07/04/2015 Appointment: Bernadette Chau WPtel: [phone] [facility] (15 min) Moderate 07/04/2015 Patient Education: Patient Medication Summary Completed 07/04/2015 Patient Education: Hypertension Completed 07/04/2015 Patient Education: Patient Medication Summary Completed 06/30/2015 Visit Plan: Hypertension - uncontrolled - the patient's medications have been modified as documented in the visit note. The patient has been counseled to cut back on salt in diet for a no added salt diet, low fat diet, start an exercise program with low weight bearing exercises and higher aerobic activity for heart health. The patient is to check blood pressure readings as an outpatient and either fax, call, or email the readings to the office next week for practitioner to review. The pt is to call for acute concerns. Erectile dysfunction - recommended pt to use viagra or cialis prn. Esophageal Reflux - the patient has been counseled against excessive intake of caffeine, spicy foods, peppermint, and cinnamon - all of which can exacerbate esophageal reflux. The patient is to take medications as prescribed and call the office if the symptoms are not improving. 06/14/2015 Appointment: Bernadette Chau WPtel: [address] [place], [place] [id number] (30 min) Complex 06/14/2015 Patient Education: Patient Medication Summary Completed 06/14/2015 Visit Plan: Hypertension - well controlled - continue with current medications, continue with no added salt diet. Pt has been encouraged to exercise daily. The pt has been advised to call the office if there are any acute concerns about change in blood pressure readings at home. Back pain - with history of prostate cancer - recommended xray of lower back and sacrum. 03/14/2015 Appointment: Bernadette Chau WPtel: [facility]6 [facility] (15 min) Moderate 03/14/2015 Patient Education: Patient Medication Summary Completed 03/14/2015 Patient Education: Hypertension Completed 03/14/2015 Visit Plan: Hypertension - uncontrolled - the patient's medications have been modified as documented in the visit note. The patient has been counseled to cut back on salt in diet for a no added salt diet, low fat diet, start an exercise program with low weight bearing exercises and higher aerobic activity for heart health. The patient is to check blood pressure readings as an outpatient and either fax, call, or email the readings to the office next week for practitioner to review. The pt is to call for acute concerns. [facility] - pt to take the medication at bedtime bring blood pressure machine by the office. increase spironolactone to 50mg daily. 12/13/2014 Appointment: Bernadette Chau WPtel: [facility] (15 min) Moderate 12/13/2014 Patient Education: Patient Medication Summary Completed 12/13/2014 Patient Education: Hypertension Completed 12/13/2014 Appointment: Bernadette Chau WPtel: [facility] Follow up 12/09/2014 Visit Plan: Hypertension - well controlled - continue with current medications, continue with no added salt diet. Pt has been encouraged to exercise daily. The pt has been advised to call the office if there are any acute concerns about change in blood pressure readings at home. 11/16/2014 Appointment: Nurse Visit 11/16/2014 Patient Education: Patient Medication Summary Completed 11/16/2014 Patient Education: Hypertension Completed 11/16/2014 Visit Plan: Anxiety - and Depression - not well controlled - recommended: increase the buspirone to 1 pill in the 10 in the morning, 1/2 pill at 1 or 2pM and 1 pill at bedtime. HTN - not optimally controlled - will have pt bring in blood pressures in one week once his anxiety is controlled. Pt to call if not improving. 09/09/2014 Appointment: Bernadette Chau WPtel: [phone] [facility] (15 min) Moderate 09/09/2014 Patient Education: Patient Medication Summary Completed 09/09/2014 Patient Education: Hypertension Completed 09/09/2014 Visit Plan: Hypertension - uncontrolled - the patient's medications have been modified as documented in the visit note. The patient has been counseled to cut back on salt in diet for a no added salt diet, low fat diet, start an exercise program with low weight bearing exercises and higher aerobic activity for heart health. The patient is to check blood pressure readings as an outpatient and either fax, call, or email the readings to the office next week for practitioner to review. The pt is to call for acute concerns. 08/25/2014 Appointment: Bernadette Chau WPtel[facility] [phone] [facility] (10 min) Simple 08/25/2014 Patient Education: Patient Medication Summary Completed 08/25/2014 Patient Education: Hypertension Completed 08/25/2014 Appointment: (15 min) Moderate 08/23/2014 Visit Plan: Hypertension - well controlled - continue with current medications, continue with no added salt diet. Pt has been encouraged to exercise daily. The pt has been advised to call the office if there are any acute concerns about change in blood pressure readings at home. Chronic Depression and anxiety - the pt has symptoms of chronic anxiety and depression that have been fairly well controlled since the last office visit. The pt has expected periods of exacerbation with abatement of the symptoms with change in situational exposure. No change in current medications. Impotence - stable symptoms on cialis. 06/10/2014 Appointment: Bernadette Chau WPtel: [facility] Follow up 06/10/2014 Patient Education: Patient Medication Summary Completed 06/10/2014 Patient Education: Hypertension Completed 06/10/2014 Visit Plan: Esophageal Reflux - the patient has been counseled against excessive intake of caffeine, spicy foods, peppermint, and cinnamon - all of which can exacerbate esophageal reflux. The patient is to take medications as prescribed and call the office if the symptoms are not improving. Hypertension - well controlled - continue with current medications, continue with no added salt diet. Pt has been encouraged to exercise daily. The pt has been advised to call the office if there are any acute concerns about change in blood pressure readings at home. 12/03/2013 Appointment: Bernadette Chau WPtel: [phone] [facility] Follow up 12/03/2013 Patient Education: Patient Medication Summary Completed 12/03/2013 Visit Plan: Hypertension - well controlled at home per pt - continue with current medications, continue with no added salt diet. Pt has been encouraged to exercise daily. The pt has been advised to call the office if there are any acute concerns about change in blood pressure readings at home. Chronic Depression and anxiety - the pt has symptoms of chronic anxiety and depression that have been fairly well controlled since the last office visit. The pt has expected periods of exacerbation with abatement of the symptoms with change in situational exposure. No change in current medications. Impotence - samples of cialis 05/25/2013 Appointment: Bernadette Chau WPtel: [id number] Follow up 05/25/2013 Patient Education: Patient Medication Summary Completed 05/25/2013 Patient Education: Hypertension Completed 05/25/2013 Visit Plan: Hypertension - well controlled - continue with current medications, continue with no added salt diet. Pt has been encouraged to exercise daily. The pt has been advised to call the office if there are any acute concerns about change in blood pressure readings at home. Esophageal Reflux - the patient has been counseled against excessive intake of caffiene, spicy foods, peppermint, and cinnamon - all of which can exacerbate esophageal reflux. The patient is to take medications as prescribed and call the office if the symptoms are not improving. 11/24/2012 Appointment: Bernadette Chau WPtel: [address] [place], [place] [id number] Follow up 11/24/2012 Patient Education: Patient Medication Summary Completed 11/24/2012 Patient Education: Hypertension Completed 11/24/2012 Visit Plan: Hypertension - well controlled - continue with current medications, continue with no added salt diet. Pt has been encouraged to exercise daily. The pt has been advised to call the office if there are any acute concerns about change in blood pressure readings at home. Impotence - samples of cialis given to the patient. Trigger finger - continue with use of diclofenac to the joints - use 4 times daily. 05/26/2012 Appointment: Bernadette Chau WPtel: [facility] [place] [id number] Established Patient Preventative visit 05/26/2012 Patient Education: Patient Medication Summary Completed 05/26/2012 Patient Education: Hypertension Completed 05/26/2012 Visit Plan: Hypertension - well controlled - continue with current medications, continue with no added salt diet. Pt has been encouraged to exercise daily. The pt has been advised to call the office if there are any acute concerns about change in blood pressure readings at home. 11/27/2011 Appointment: Bernadette Chau WPtel: [address] [place], [place] [id number] Follow up 11/27/2011 Patient Education: Patient Medication Summary Completed 11/27/2011 Patient Education: High Blood Pressure: Essential Hypertension Completed 2011 Visit Plan: Wound Instructions - Pt was instruced to keep the wound clean, wash with antibacterial soap, use triple antibiotic ointment, call if redness, pustular drainage, or any other acute conerns. 10/02/2011 Appointment: Michelle Dutton WPtel: [id number] Surgical Procedure 10/02/2011 Patient Education: Patient Medication Summary Completed 10/02/2011 Visit Plan: Hypertension - well controlled - continue with current medications, continue with no added salt diet. Pt has been encouraged to exercise daily. The pt has been advised to call the office if there are any acute concerns about change in blood pressure readings at home. Erectile dysfunction - recommended trial of daily cialis - pt has tried viagra in the past, but since his prostatectomy, has not tried the medication. The viagra did not give satisfactory results in the past. Arthritis- occasionally uncontrolled symptoms- recommend pt to take antiinflammatory as directed for pain control. Use tylenol for break through pain symptoms. 09/20/2011 Appointment: Bernadette Chau WPtel: [id number] New Patient 09/20/2011 Patient Education: Patient Medication Summary Completed 09/20/2011 Patient Education: High Blood Pressure: Essential Hypertension Completed 2011 Instructions Comment NEXIUM 40MG DAILY.. Hypertension - well controlled - continue with current medications, continue with no added salt diet. Pt has been encouraged to exercise daily. The pt has been advised to call the office if there are any acute concerns about change in blood pressure readings at home. Esophageal Reflux - the patient has been counseled against excessive intake of caffiene, spicy foods, peppermint, and cinnamon - all of which can exacerbate esophageal reflux. The patient is to take medications as prescribed and call the office if the symptoms are not improving. . Hypertension - well controlled - continue with current medications, continue with no added salt diet. Pt has been encouraged to exercise daily. The pt has been advised to call the office if there are any acute concerns about change in blood pressure readings at home. Chronic Depression and anxiety - the pt has symptoms of chronic anxiety and depression that have been fairly well controlled since the last office visit. The pt has expected periods of exacerbation with abatement of the symptoms with change in situational exposure. No change in current medications. Impotence - stable symptoms on cialis. . Hypertension - well controlled - continue with current medications, continue with no added salt diet. Pt has been encouraged to exercise daily. The pt has been advised to call the office if there are any acute concerns about change in blood pressure readings at home. Tremor - essential - benign - monitor symptoms. STOP ALEVE DEXILANT 60MG DAILY FOR ACID REFLUX MUSCLE RUB TO NECK KEEP APPOINTMENT NEXT WEEK . Esophageal Reflux - the patient has been counseled against excessive intake of caffeine, spicy foods, peppermint, and cinnamon - all of which can exacerbate esophageal reflux. The patient is to take medications as prescribed and call the office if the symptoms are not improving. Neck Pain- pt to start with aspercreme or biofreeze to neck three times daily and start neck exercises daily. . Hypertension - well controlled - continue with current medications, continue with no added salt diet. Pt has been encouraged to exercise daily. The pt has been advised to call the office if there are any acute concerns about change in blood pressure readings at home. PT with [facility] refill diazepam . Neck Pain- muscle spasms- recommend PT work with patient -they have [employer] -will contact them to start with neck exercise/stretches- refill valium for prn use and use as directed only- patient verbalized understanding of plan. . Hypertension - well controlled - continue with current medications, continue with no added salt diet. Pt has been encouraged to exercise daily. The pt has been advised to call the office if there are any acute concerns about change in blood pressure readings at home. continue with lisinopril 20mg twice daily (split the 40mg into 1/2 pill twice daily) . Hypertension - uncontrolled - the patient's medications have been modified as documented in the visit note. The patient has been counseled to cut back on salt in diet for a no added salt diet, low fat diet, start an exercise program with low weight bearing exercises and higher aerobic activity for heart health. The patient is to check blood pressure readings as an outpatient and either fax , call, or email the readings to the office next week for practitioner to review. The pt is to call for acute concerns. . Hypertension - well controlled - continue with current medications, continue with no added salt diet. Pt has been encouraged to exercise daily. The pt has been advised to call the office if there are any acute concerns about change in blood pressure readings at home. Parkinson's Disease - pt has diagnosis of Parkinson's disease with movement disorder impinging upon daily activities. The pt is to be on sinemet as directed, and medications to be adjusted as appropriate for alleviation of the impairment of ADL's. Pt or pt's family is to alert this office if symptoms worsen. change the lisionpril to 1/2 pill one time daily at bedtime. . Hypertension - uncontrolled - the patient's medications have been modified as documented in the visit note. The patient has been counseled to cut back on salt in diet for a no added salt diet, low fat diet, start an exercise program with low weight bearing exercises and higher aerobic activity for heart health. The patient is to check blood pressure readings as an outpatient and either fax , call, or email the readings to the office next week for practitioner to review. The pt is to call for acute concerns. . Hypertension - well controlled - continue with current medications, continue with no added salt diet. Pt has been encouraged to exercise daily. The pt has been advised to call the office if there are any acute concerns about change in blood pressure readings at home. Essential Tremor - continue with supportive care, no medication needed at this time . Hypertension - well controlled - continue with current medications, continue with no added salt diet. Pt has been encouraged to exercise daily. The pt has been advised to call the office if there are any acute concerns about change in blood pressure readings at home. Back pain - with history of prostate cancer - recommended xray of lower back and sacrum. . Hypertension - well controlled - continue with current medications, continue with no added salt diet. Pt has been encouraged to exercise daily. The pt has been advised to call the office if there are any acute concerns about change in blood pressure readings at home. Tremor - benign - essential tremor. samples of cialis - pt to take the medication at bedtime bring blood pressure machine by the office. increase spironolactone to 50mg daily. . Hypertension - uncontrolled - the patient's medications have been modified as documented in the visit note. The patient has been counseled to cut back on salt in diet for a no added salt diet, low fat diet, start an exercise program with low weight bearing exercises and higher aerobic activity for heart health. The patient is to check blood pressure readings as an outpatient and either fax , call, or email the readings to the office next week for practitioner to review. The pt is to call for acute concerns. samples of cialis - pt to take the medication at bedtime bring blood pressure machine by the office. increase spironolactone to 50mg daily. . Wound Instructions - Pt was instruced to keep the wound clean, wash with antibacterial soap, use triple antibiotic ointment, call if redness, pustular drainage, or any other acute conerns. . Medicare Exam - today we discussed the patients past history, immunizations, preventative exams/evaluations - colonoscopy, fecal occult blood testing, routine labs for renal function, glucose, cholesterol, osteoporosis evaluations, cardiovascular testing and cancer screenings. We have also discussed mental health and the signs/symptoms of depression. The patient was advised of home safety evaluations and the need to make sure that as the aging process continues, we need to be aware of different ways to make the home a safer place to reside. The patient has also been counseled that exercise is necessary - and of utmost importance as we age to help decrease fall risk and to maintain independece in the home. Today we discussed the need for the patient to create paperwork for Advanced directives as well as for the patient to provide this office with a copy of her DOPA paperwork for health care surrogate. . Hypertension - uncontrolled - the patient's medications have been modified as documented in the visit note. The patient has been counseled to cut back on salt in diet for a no added salt diet, low fat diet, start an exercise program with low weight bearing exercises and higher aerobic activity for heart health. The patient is to check blood pressure readings as an outpatient and either fax , call, or email the readings to the office next week for practitioner to review. The pt is to call for acute concerns. Erectile dysfunction - recommended pt to use viagra or cialis prn. Esophageal Reflux - the patient has been counseled against excessive intake of caffeine, spicy foods, peppermint, and cinnamon - all of which can exacerbate esophageal reflux. The patient is to take medications as prescribed and call the office if the symptoms are not improving. . Hypertension - well controlled at home per pt - continue with current medications, continue with no added salt diet. Pt has been encouraged to exercise daily. The pt has been advised to call the office if there are any acute concerns about change in blood pressure readings at home. Chronic Depression and anxiety - the pt has symptoms of chronic anxiety and depression that have been fairly well controlled since the last office visit. The pt has expected periods of exacerbation with abatement of the symptoms with change in situational exposure. No change in current medications. Impotence - samples of cialis . Hypertension - well controlled - continue with current medications, continue with no added salt diet. Pt has been encouraged to exercise daily. The pt has been advised to call the office if there are any acute concerns about change in blood pressure readings at home. Erectile dysfunction - recommended trial of daily cialis - pt has tried viagra in the past, but since his prostatectomy, has not tried the medication. The viagra did not give satisfactory results in the past. Arthritis- occasionally uncontrolled symptoms- recommend pt to take antiinflammatory as directed for pain control. Use tylenol for break through pain symptoms. increase the buspirone to 1 pill in the 10 in the morning, 1/2 pill at 1 or 2pM and 1 pill at bedtime. . Anxiety - and Depression - not well controlled - recommended: increase the buspirone to 1 pill in the 10 in the morning, 1/2 pill at 1 or 2pM and 1 pill at bedtime. HTN - not optimally controlled - will have pt bring in blood pressures in one week once his anxiety is controlled. Pt to call if not improving. . Hypertension - well controlled - continue with current medications, continue with no added salt diet. Pt has been encouraged to exercise daily. The pt has been advised to call the office if there are any acute concerns about change in blood pressure readings at home. Tremor - continue supportive care. . Parkinson's Disease - pt has diagnosis of Parkinson's disease with movement disorder impinging upon daily activities. The pt is to be on sinemet as directed, and medications to be adjusted as appropriate for alleviation of the impairment of ADL's. Pt or pt's family is to alert this office if symptoms worsen. Neck Pain- - diazepam 2.5mg nightly x 3 nights and recommended patient to use voltaren to neck/upper back. Physical therapy to be ordered through home health. increase the requip (ropinirole) from 0.25mg twice daily to 0.5mg twice daily. finish out the dexilant pills and then you can restart the pepcid ac complete. . Parkinson's disease - increase the requip (ropinirole) from 0.25mg twice daily to 0.5mg twice daily. Continue with physical therapy with home health GERD - finish out the dexilant pills and then you can restart the pepcid ac complete. Hypertension - well controlled - continue with current medications, continue with no added salt diet. Pt has been encouraged to exercise daily. The pt has been advised to call the office if there are any acute concerns about change in blood pressure readings at home. . Hypertension - well controlled - continue with current medications, continue with no added salt diet. Pt has been encouraged to exercise daily. The pt has been advised to call the office if there are any acute concerns about change in blood pressure readings at home. Impotence - samples of cialis given to the patient. Trigger finger - continue with use of diclofenac to the joints - use 4 times daily. . Hypertension - well controlled - continue with current medications, continue with no added salt diet. Pt has been encouraged to exercise daily. The pt has been advised to call the office if there are any acute concerns about change in blood pressure readings at home. doxazosin full pill twice a day then if still above let me know on Saturday and we will increase it again if needed Start gabapentin for pain 100mg at night and can increase to 3 times a day if needed and you are tolerating it OK. . Hypertension - uncontrolled - Discussed with Dr. Chau - the patient's medications have been modified as documented in the visit note. The patient has been counseled to cut back on salt in diet for a no added salt diet, low fat diet, start an exercise program with low weight bearing exercises and higher aerobic activity for heart health. The patient is to check blood pressure readings as an outpatient and either fax , call, or email the readings to the office next week for practitioner to review. The pt is to call for acute concerns. Neck Pain- muscle spasms- pt is to continue with PT and keep appointment with Dr. Moy - will start gabapentin Declined Procedure: (99720) FLU VACC 4 WILVER 3 YRS PLUS IM; Declined Reason: does not want vaccine . Esophageal Reflux - the patient has been counseled against excessive intake of caffeine, spicy foods, peppermint, and cinnamon - all of which can exacerbate esophageal reflux. The patient is to take medications as prescribed and call the office if the symptoms are not improving. Hypertension - well controlled - continue with current medications, continue with no added salt diet. Pt has been encouraged to exercise daily. The pt has been advised to call the office if there are any acute concerns about change in blood pressure readings at home. . Medicare Exam - today we discussed the patients past history, immunizations, preventative exams/evaluations - colonoscopy, fecal occult blood testing, routine labs for renal function, glucose, cholesterol, osteoporosis evaluations, cardiovascular testing and cancer screenings. We have also discussed mental health and the signs/symptoms of depression. The patient was advised of home safety evaluations and the need to make sure that as the aging process continues, we need to be aware of different ways to make the home a safer place to reside. The patient has also been counseled that exercise is necessary - and of utmost importance as we age to help decrease fall risk and to maintain independece in the home. Today we discussed the need for the patient to create paperwork for Advanced directives as well as for the patient to provide this office with a copy of her DOPA paperwork for health care surrogate.
--- OUTSIDE RECORDS SUMMARY | 2018-01-04 00:34 | XMS REPORT | CCD ---
Author Author Bernadette Chau Organization Bernadette Chau MD, [facility] Address [address] [place] [address] Phone Care Team Providers Care Events Intern Name Role Phone PP Unavailable CCM Unavailable Summary Purpose Interface Exchange Insurance Providers Payer name Policy type / Coverage type Covered republican ID Effective Begin Date Effective End Date WPS Medicare Part B Medicare Part B [id number] 2017 Unknown [facility] Medicare Part B [id number] Unknown Family history Uncle Diagnosis Age At [...] Unknown Retired 09/20/[address]: 793981839 Nonsmoker smoked for 2-3 years in 20's, used smokeless tobacco for 40 yrs 09/20/[address]: 5533960 Former smoker quit 1965 09/20/2011 Alcohol history [...] Codes Condition Status Onset Date Resolved Date Essential (primary) hypertension ICD-9: 401.9 ICD-10: I10 Active 12/03/2013 Unknown Muscle spasm of back ICD-9: 724.8 ICD-10: M62.830 Active 10/21/2017 Unknown Cervicalgia ICD-9: 723.1 ICD-10: M54.2 Active 10/18/2017 Unknown Gastro-esophageal reflux disease without esophagitis ICD-9: 530.81 ICD-10: K21.9 Active 12/03/2013 Unknown Essential tremor ICD-9 : 333.1 ICD-10: G25.0 Active 11/08/2015 Unknown Encounter for general adult medical examination [...] Problems Condition Codes Effective Dates Condition Status Essential (primary) hypertension ICD-9: 401.9 ICD-10: I10 12/03/2013 Active Muscle spasm of back ICD-9: 724.8 ICD-10: M62.830 10/21/2017 Active Cervicalgia ICD-9: 723.1 ICD-10: M54.2 10/18/2017 Active Gastro-esophageal reflux disease without esophagitis ICD-9: 530.81 ICD-10: K21.9 12/03/2013 Active Essential tremor ICD-9 : 333.1 ICD-10: G25.0 11/08/2015 Active Encounter for general adult medical examination [...] Start Date Stop Date Status Fill Instructions ibuprofen 600 mg tablet RxNorm: 162400 1 Tablet(s) PO TID 10/2411/06/2017 Active diazepam 5 mg tablet RxNorm: 014811 1/2 Tablet(s) PO BID as needed muscle spasms 10/24/2017 11/06/2017 Active ibuprofen 600 mg tablet RxNorm: 208025 1 Tablet(s) PO TID 10/2410/23/2017 Inactive Requip 0.25 mg tablet RxNorm: 258492 1 Tablet(s) PO BID 201702/17/2018 Active buspirone 15 mg tablet RxNorm: 587281 Tablet(s) Take 1 pill in the morning, 1/2 pill at 1 or 2pm and 1 pill at bedtime 10/21/2017 No Stop Date Active prednisone 20 mg tablet RxNorm: 575126 3 Tablet(s) PO daily -Prescribed by Dr. Dann Rod on 10/20/17 10/20/20172017 Inactive Dexilant 60 mg capsule, delayed release RxNorm: 626450 1 Capsule(s) PO daily 10/18/2017 No Stop Date Active tramadol 50 mg tablet RxNorm: 622381 1 Tablet(s) PO TID PRN 10/24/2017 Inactive hydrochlorothiazide 25 mg tablet RxNorm: 978312 TAKE 1 TABLET BY MOUTH IN THE MORNING 09/30/2017 04/27/2018 Active Generic For:HYDRODIURIL 25 MG TABLET 2017 11:36:14 AM Sinemet 10 mg-100 mg tablet RxNorm: 391351 1 Tablet(s) PO BID morning and early afternoon 09/10/2017 10/20/2017 Inactive potassium chloride ER 10 mEq capsule,extended release RxNorm: 779653 1 Capsule(s) PO TIW 07/22/2017 06/22/2018 Active buspirone 15 mg tablet RxNorm: 683005 Tablet(s) Take 1 pill in the morning, 1/2 pill at 1 or 2pm and 1 pill at bedtime 05/08/2017 09/28/2017 Inactive doxazosin 1 mg tablet RxNorm: 069929 TAKE 1/2 (ONE- HALF) TABLET TWICE DAILY 04/10/2017 11/05/2017 Active Generic For:CARDURA 1MG 04/10/2017 1:06:52 PM carvedilol 12.5 mg tablet RxNorm: 564918 Tablet(s) TAKE 1 TABLET BY MOUTH TWICE DAILY 04/10/2017 11/05/2017 Active hydrochlorothiazide 25 mg tablet RxNorm: 405791 TAKE 1 TABLET BY MOUTH IN THE MORNING 03/05/2017 09/29/2017 Inactive Generic For:HYDRODIURIL 25 MG TABLET 2017 10:38:53 AM buspirone 15 mg tablet RxNorm: 191052 Tablet(s) Take 1 pill in the morning, 1/2 pill at 1 or 2pm and 1 pill at bedtime 12/06/2016 04/28/2017 Inactive doxazosin 1 mg tablet RxNorm: 265989 1/2 Tablet(s) PO BID 201604/09/2017 Inactive lisinopril 40 mg tablet RxNorm: 736448 TAKE 1/2 TABLET BY MOUTH TWICE DAILY 09/18/2016 09/12/2017 Inactive Generic For:ZESTRIL 40MG 09/18/2016 9:08:05 AM carvedilol 12.5 mg tablet RxNorm: 620625 Tablet(s) TAKE 1 TABLET BY MOUTH TWICE DAILY 09/14/2016 04/09/2017 Inactive potassium chloride ER 10 mEq capsule,extended release RxNorm: 140539 1 Capsule(s) PO TIW 08/14/2016 07/15/2017 Inactive hydrochlorothiazide 25 mg tablet RxNorm: 867260 TAKE 1 TABLET BY MOUTH IN THE MORNING 08/06/2016 03/03/2017 Inactive Generic For:HYDRODIURIL 25 MG TABLET 2016 9:47:38 AM doxazosin 1 mg tablet RxNorm: 256673 1/2 Tablet(s) PO BID 201611/11/2016 Inactive fexofenadine 180 mg tablet RxNorm: 297957 1 Tablet(s) PO daily 04/05/2016 10/01/2016 Inactive fexofenadine 180 mg tablet RxNorm: 920773 1 Tablet(s) PO daily 04/05/2016 04/04/2016 Inactive buspirone 15 mg tablet RxNorm: 051281 Tablet(s) Tablet(s) take 1 pill in the morning, 1/2 pill at 1 or 2pm and 1 pill at bedtime 201609/07/2016 Inactive Generic For:BUSPAR 15MG 08/19/2014 9:29:55 AM carvedilol 12.5 mg tablet RxNorm: 460881 Tablet(s) TAKE 1 TABLET BY MOUTH TWICE DAILY 02/14/2016 09/10/2016 Inactive potassium chloride ER 10 mEq capsule,extended release RxNorm: 819016 1 Capsule(s) PO TIW 02/08/2016 08/13/2016 Inactive hydrochlorothiazide 25 mg tablet RxNorm: 419309 1 Tablet(s) PO QAM 01/09/2016 08/05/2016 Inactive carvedilol 12.5 mg tablet RxNorm: 888121 TAKE 1 TABLET BY MOUTH TWICE DAILY 10/18/2015 02/13/2016 Inactive Generic For:COREG 12.5MG 10/17/2015 1:04:24 PM lisinopril 40 mg tablet RxNorm: 266372 1/2 Tablet(s) PO BID 08/15/2016 Inactive Generic For:ZESTRIL 20MG 07/21/2014 9:29:18 AM doxazosin 1 mg tablet RxNorm: 780425 1/2 Tablet(s) PO BID 201510/31/2015 Inactive this is FYI for now - and will remain this in the future, does not need a fill right now doxazosin 1 mg tablet RxNorm: 576125 1 Tablet(s) PO BID 201506/29/2015 Inactive doxazosin 1 mg tablet RxNorm: 944283 1 Tablet(s) PO BID 201507/03/2015 Inactive potassium chloride ER 10 mEq capsule,extended release RxNorm: 001154 1 Capsule(s) PO TIW 06/14/2015 01/09/2016 Inactive hydrochlorothiazide 25 mg tablet RxNorm: 858236 1 Tablet(s) PO QAM 06/14/2015 01/08/2016 Inactive buspirone 15 mg tablet RxNorm: 963099 Tablet(s) take 1 pill in the morning, 1/2 pill at 1 or 2pm and 1 pill at bedtime 06/13/2015 12/09/2015 Inactive Generic For: BUSPAR 15MG 08/19/2014 9:29:55 AM carvedilol 12.5 mg tablet RxNorm: 007431 TAKE 1 TABLET BY MOUTH TWICE DAILY 05/20/2015 09/16/2015 Inactive Generic For:COREG 12.5MG 05/20/2015 9:04:34 AM carvedilol 12.5 mg tablet RxNorm: 934362 Tablet(s) 1 Tablet(s) PO BID 05/20/2015 05/19/2015 Inactive carvedilol 12.5 mg tablet RxNorm: 609224 1 Tablet(s) PO BID 05/19/2015 Inactive spironolactone 50 mg tablet RxNorm: 277909 1 Tablet(s) PO QAM 12/13/2014 06/13/2015 Inactive carvedilol 12.5 mg tablet RxNorm: 635160 1 Tablet(s) PO BID 01/11/2015 Inactive spironolactone 25 mg tablet RxNorm: 976019 1 Tablet(s) PO QAM 09/13/2014 12/12/2014 Inactive spironolactone 25 mg tablet RxNorm: 244177 1 Tablet(s) PO QAM 09/13/2014 09/12/2014 Inactive buspirone 15 mg tablet RxNorm: 512022 Tablet(s) take 1 pill in the morning, 1/2 pill at 1 or 2pm and 1 pill at bedtime 09/09/2014 03/07/2015 Inactive Generic For: BUSPAR 15MG 08/19/2014 9:29:55 AM lisinopril 40 mg tablet RxNorm: 803810 1/2 Tablet(s) PO BID 08/19/2015 Inactive Generic For:ZESTRIL 20MG 07/21/2014 9:29:18 AM Coreg 6.25 mg tablet RxNorm: 410751 1 Tablet(s) PO BID 201409/13/2014 Inactive buspirone 15 mg tablet RxNorm: 144166 TAKE 1 TABLET BY MOUTH TWICE DAILY 08/19/2014 09/08/2014 Inactive Generic For:BUSPAR 15MG 08/19/2014 9:29:55 AM lisinopril 20 mg tablet RxNorm: 654324 1 Tablet(s) PO daily TAKE 1 TABLET BY MOUTH ONCE DAILY. 07/21/2014 07/20/2014 Inactive Generic For:*ZESTRIL 20MG Generic For:*ZESTRIL 20MG 07/29/2013 11:19:45 AM lisinopril 20 mg tablet RxNorm: 009703 TAKE 1 TABLET BY MOUTH ONCE DAILY. 07/21/2014 08/24/2014 Inactive Generic For:ZESTRIL 20MG 07/21/2014 9:29:18 AM buspirone 15 mg tablet RxNorm: 484650 1 Tablet(s) BID 1 Tablet(s) PO BID 06/21/2014 08/18/2014 Inactive Tamiflu 75 mg capsule RxNorm: 747712 1 Capsule(s) PO daily 03/1203/11/2014 Inactive Tamiflu 75 mg capsule RxNorm: 251728 1 Capsule(s) PO daily 03/1203/21/2014 Inactive buspirone 15 mg tablet RxNorm: 903972 1 Tablet(s) BID 1 Tablet(s) PO BID 02/16/2014 06/20/2014 Inactive buspirone 15 mg tablet RxNorm: 491419 1 Tablet(s) PO BID 201302/15/2014 Inactive lisinopril 20 mg tablet RxNorm: 429234 Tablet(s) PO TAKE 1 TABLET BY MOUTH ONCE DAILY. 07/30/2013 07/20/2014 Inactive Generic For:*ZESTRIL 20MG Generic For:* ZESTRIL 20MG 07/29/2013 11:19:45 AM buspirone 15 mg tablet RxNorm: 016439 1 Tablet(s) PO BID 201310/18/2013 Inactive Zithromax 250 mg tablet RxNorm: 099824 Tablet(s) PO 03/18/2013 06/13/2015 Inactive as directed buspirone 15 mg tablet RxNorm: 202812 Tablet(s) PO TAKE 1 TABLET AT BEDTIME AND TAKE 1/2 A TABLET TWICE A DAY 12/22/2012 05/24/2013 Inactive buspirone 15 mg tablet RxNorm: 244822 1 at hs 1/2 bid Tablet(s) PO daily 11/27/2012 10/20/2017 Inactive buspirone 15 mg tablet RxNorm: 178703 Tablet(s) PO daily 201211/26/2012 Inactive 1 q hs and 1/2 daily buspirone 15 mg tablet RxNorm: 553500 Tablet(s) PO daily 2012 No Stop Date Active 1 q hs and 1/2 daily buspirone 15 mg tablet RxNorm: 039065 Tablet(s) PO daily 201210/26/2012 Inactive 1 q hs and 1/2 daily lisinopril 20 mg tablet RxNorm: 462044 Tablet(s) PO TAKE 1 TABLET BY MOUTH ONCE DAILY. 08/05/2012 07/29/2013 Inactive lisinopril 20 mg tablet RxNorm: 518537 Tablet(s) PO TAKE 1 TABLET BY MOUTH ONCE DAILY. 07/07/2012 08/04/2012 Inactive lisinopril 20 mg tablet RxNorm: 370204 Tablet(s) PO 01/07/2012 07/06/2012 Inactive TAKE 1 TABLET BY MOUTH ONCE DAILY. lisinopril 20 mg tablet RxNorm: 712497 Tablet(s) PO 12/10/2011 01/06/2012 Inactive TAKE 1 TABLET BY MOUTH ONCE DAILY. lisinopril 20 mg tablet RxNorm: 993936 1 Tablet(s) PO daily 01/201212/09/2011 Inactive can have #90 if prefers lisinopril 20 mg tablet RxNorm: 665946 1 Tablet(s) PO daily 01/201211/12/2011 Inactive can have #90 if prefers buspirone 15 mg tablet RxNorm: 796349 Tablet(s) PO daily 201110/26/2012 Inactive 1 q hs and 1/2 daily Calcium 600 + D(3) oral RxNorm: 883720 oral No Start Date Active Percocet 5 mg-325 mg tablet RxNorm: 6097032 1 Tablet(s) PO Q6 as needed breakthrough pain- Prescribed by Dr. Lebron on 10/20/17 No Start Date Active Fish Oil Concentrate Oral RxNorm: Oral No Start Date Active Centrum Silver Oral RxNorm: Oral No Start Date Active Zithromax 250 mg tablet RxNorm: 322351 Tablet(s) PO No Start Date 03/17/2013 Inactive as directed lisinopril 20 mg tablet RxNorm: 452042 1 Tablet(s) PO daily No Start Date 11/16/2014 Inactive buspirone 15 mg tablet RxNorm: 975565 1 Tablet(s) PO daily No Start Date 09/24/2011 Inactive diazepam 5 mg tablet RxNorm: 129462 1 Tablet(s) PO Q6 as needed muscle spasms - Prescribed by Dr. Dann Rod on 10/20/17 No Start Date 10/23/2017 Inactive B Complex 1 Oral RxNorm: Oral No Start Date 06/13/2015 Inactive lisinopril 20 mg tablet RxNorm: 560386 1 Tablet(s) PO daily No Start Date 11/12/2011 Inactive Medication Administered No Medication Administered data Immunizations No Immunization data Assessments Condition Codes Effective Dates Muscle spasm of back ICD-10: M62.830 ICD-9: 724.8 10/21/2017 Essential (primary) hypertension ICD-10: I10 ICD-9: 401.9 10/21/2017 Cervicalgia ICD-10: M54.2 ICD-9: 723.1 10/18/2017 Gastro-esophageal reflux disease without esophagitis ICD-10 : K21.9 ICD-9: 530.81 10/18/2017 Essential tremor ICD-10: G25.0 ICD-9: 333.1 09/10/2017 [...] Visit Reason For Visit Effective Dates Notes Hospital Follow Up 10/21/2017 neck pain 10/18/2017 [...] 88.8 fl 03/08/2016 Cbc With Differential Ord2 Walker% 10.8 % 03/08/2016 Cbc With Differential Ord2 [...] 1.66 K/ul 03/08/2016 Cbc With Differential Ord2 Walker ABS# 0.5 K/ul 03/08/2016 Cbc With Differential Ord2 Eos ABS# 0.1 K/ul 03/08/2016 Cbc With Differential Ord2 Baso ABS# 0.1 K/ul 03/08/2016 Comp Metabolic Weq391 NA 137 mEq/L 03/08/2016 Comp Metabolic Fst273 K 3.8 mEq/L 03/08/2016 Comp Metabolic Azf000 CL 100 mEq/L 03/08/2016 Comp Metabolic Dyn428 CO2 32.0 mEq/L 03/08/2016 Comp Metabolic Jnp049 ANION GAP 9 03/08/2016 Comp Metabolic Dvb767 GLUCOSE 88 mg/dL 03/08/2016 Comp Metabolic Dfy247 Creat 1.1 mg/dL 03/08/2016 Comp Metabolic Jje586 eGFR 67 ml/min/1.73m2 03/08/2016 Comp Metabolic Fks873 BUN 17 mg/dL 03/08/2016 Comp Metabolic Vbi449 B/C Ratio 15.0 Ratio 03/08/2016 Comp Metabolic Iyf750 CALCIUM 9.2 mg/dL 03/08/2016 Comp Metabolic Llk958 ALK PHOS 43 U/L 03/08/2016 Comp Metabolic Pho343 AST(SGOT) 19 U/L 03/08/2016 Comp Metabolic Lxw572 ALT(SGPT) 17 U/L 03/08/2016 Comp Metabolic Lhy759 BILI T 1.1 mg/dL 03/08/2016 Comp Metabolic Gkw076 ALBUMIN 4.2 g/dL 03/08/2016 Comp Metabolic Iym817 TPRO 7.1 g/dL 03/08/2016 Comp Metabolic Ekd680 GLOB 2.9 g/dL 03/08/2016 Comp Metabolic Oic107 A/G Ratio 1.5 Ratio 03/08/2016 Comp Metabolic Sac779 Osmo 275 mOsmo 03/08/2016 Tsh Ord6 hTSH II 2.21 uIU/mL 03/08/2016 Comp Metabolic Akt798 NA 139 mEq/L 06/15/2015 Comp Metabolic Lwm840 K 4.0 mEq/L 06/15/2015 Comp Metabolic Rft505 CL 103 mEq/L 06/15/2015 Comp Metabolic Hxs143 CO2 28.0 mEq/L 06/15/2015 Comp Metabolic Ahx632 ANION GAP 12 06/15/2015 Comp Metabolic Myu927 GLUCOSE 79 mg/dL 06/15/2015 Comp Metabolic Zqc342 Creat 1.0 mg/dL 06/15/2015 Comp Metabolic Fwr033 eGFR 74 ml/min/1.73m2 06/15/2015 Comp Metabolic Okx433 BUN 15 mg/dL 06/15/2015 Comp Metabolic Gws355 B/C Ratio 14.4 Ratio 06/15/2015 Comp Metabolic Ira379 CALCIUM 9.1 mg/dL 06/15/2015 Comp Metabolic Zxl722 ALK PHOS 30 U/L 06/15/2015 Comp Metabolic Zck047 AST(SGOT) 20 U/L 06/15/2015 Comp Metabolic Vjo342 ALT(SGPT) 15 U/L 06/15/2015 Comp Metabolic Bpb401 BILI T 1.0 mg/dL 06/15/2015 Comp Metabolic Spb451 ALBUMIN 4.0 g/dL 06/15/2015 Comp Metabolic Hct128 TPRO 6.7 g/dL 06/15/2015 Comp Metabolic Kbu075 GLOB 2.7 g/dL 06/15/2015 Comp Metabolic Blq071 A/G Ratio 1.5 Ratio 06/15/2015 Comp Metabolic Hoy401 Osmo 277 mOsmo 06/15/2015 Lipid Ord30 CHOL 189 mg/dL 06/15/2015 Lipid Ord30 HDL 44.0 mg/dl 06/15/2015 Lipid Ord30 TRIG 64 mg/dL 06/15/2015 Lipid Ord30 LDL 132 mg/dL 06/15/2015 Lipid Ord30 C/HDL 4.3 Ratio 06/15/2015 Cbc With Differential Ord2 WBC 3.93 K/ul 06/15/2015 Cbc With Differential Ord2 RBC 4.44 M/ul 06/15/2015 Cbc With Differential Ord2 HGB 13.3 g/dl 06/15/2015 Cbc With Differential Ord2 Neut% 45.9 % 06/15/2015 Cbc With Differential Ord2 HCT 39.4 % 06/15/2015 Cbc With Differential Ord2 MCV 88.7 fl 06/15/2015 Cbc With Differential Ord2 Lymph% 33.8 % 06/15/2015 Cbc With Differential Ord2 MCH 30.0 pg 06/15/2015 Cbc With Differential Ord2 Walker% 14.5 % 06/15/2015 Cbc With Differential Ord2 MCHC 33.8 pg 06/15/2015 Cbc With Differential Ord2 Eos% 4.8 % 06/15/2015 Cbc With Differential Ord2 PLT 154 K/ul 06/15/2015 Cbc With Differential Ord2 Baso% 1.0 % 06/15/2015 Cbc With Differential Ord2 RDW 13.8 % 06/15/2015 Cbc With Differential Ord2 Neut ABS# 1.80 K/ul 06/15/2015 Cbc With Differential Ord2 Lymph ABS# 1.33 K/ul 06/15/2015 Cbc With Differential Ord2 Walker ABS# 0.6 K/ul 06/15/2015 Cbc With Differential Ord2 Eos ABS# 0.2 K/ul 06/15/2015 Cbc With Differential Ord2 Baso ABS# 0.0 K/ul 06/15/2015 Cbc With Differential Ord2 New Analyzer Notice Please note new ref ranges starting 03-16-2015 due to implemntation of new five part differential hematolgy analyzer. 06/15/2015 Tsh Ord6 hTSH II 2.01 uIU/mL 06/15/2015 VIT D TOTL 8701059 VIT D TOTL 57 NG/ML 12/14/2013 CHEM 14 5598975 AST 18 U/L 12/14/2013 CHEM 14 1661042 ALT 14 IU/L 12/14/2013 CHEM 14 3262848 BUN 19 MG/DL 12/14/2013 CHEM 14 9535221 ALBUMIN 4.2 GM/DL 12/14/2013 CHEM 14 9462349 CHLORIDE 106 MMOL/L 12/14/2013 CHEM 14 0205837 BILI TOT 0.9 MG/DL 12/14/2013 CHEM 14 4461205 ALK PHOS 30 U/L 12/14/2013 CHEM 14 8253348 SODIUM 140 MMOL/L 12/14/2013 CHEM 14 9419393 CREATININE 1.10 MG/DL 12/14/2013 CHEM 14 5898979 CALCIUM 9.4 MG/DL 12/14/2013 CHEM 14 4026981 POTASSIUM 4.1 MMOL/L 12/14/2013 CHEM 14 2883072 PROT TOT 6.9 GM/DL 12/14/2013 CHEM 14 3652455 GLUCOSE 91 MG/DL 12/14/2013 CHEM 14 6610111 BICARB 30 MMOL/L 12/14/2013 CHEM 14 9197623 ANION GAP 4 MEQ/L 12/14/2013 LIPID GRP HDL TEST 56 MG/DL 12/14/2013 LIPID GRP TRIG 56 MG/DL 12/14/2013 LIPID GRP TEST LDL 138 MG/DL 12/14/2013 LIPID GRP CHOL 205 MG/DL 12/14/2013 LIPID GRP RCHOL/HDL 3.66 RATIO 12/14/2013 LIPID GRP NON-HDL CH 149 MG/DL 12/14/2013 CBC 1950057 WBC 4.1 10e9/L 12/14/2013 CBC 7416235 RBC 4.90 10e12/L 12/14/2013 CBC 5683496 HGB 14.6 g/dL 12/14/2013 CBC 7163253 HCT DET 42.2 % 12/14/2013 CBC 7264985 MCV 86.1 fL 12/14/2013 CBC 2515532 MCH 29.8 pg 12/14/2013 CBC 2402617 MCHC 34.6 g/dL 12/14/2013 CBC 0648392 PLT 166 10e9/L 12/14/2013 CBC 6031779 MPV 9.0 fL 12/14/2013 CBC 9806032 LAUREL % 52.6 % 12/14/2013 CBC 4056379 LY % 31.6 % 12/14/2013 CBC 0752060 MON % 11.9 % 12/14/2013 CBC 7366247 EOS % 3.2 % 12/14/2013 CBC 6278419 BASO % 0.7 % 12/14/2013 CBC 5820776 RDW 13.6 % 12/14/2013 CBC 7936662 ABS LAUREL 2.16 10e9/L 12/14/2013 CBC 5878151 ABS LYMPH 1.30 10e9/L 12/14/2013 CBC 5899218 ABS MONO 0.49 10e9/L 12/14/2013 CBC 6298765 ABS EOS 0.13 10e9/L 12/14/2013 CBC 6659471 ABS BASO 0.03 10e9/L 12/14/2013 CBC 5784343 RDW-SD 41.7 fL 12/14/2013 GFR CALC 3547796 GFR AA >60 ML/MIN 12/14/2013 GFR CALC 5335523 GFR NON-AA >60 ML/MIN 12/14/2013 TSH 0127562 TSH 2.444 uIU/ML 12/14/2013 CHEM 14 3129518 AST 20 U/L 12/22/2012 CHEM 14 4534043 ALT 18 IU/L 12/22/2012 CHEM 14 4269926 BUN 20 MG/DL 12/22/2012 CHEM 14 2639881 ALBUMIN 4.1 GM/DL 12/22/2012 CHEM 14 5970310 CHLORIDE 105 MMOL/L 12/22/2012 CHEM 14 8270806 BILI TOT 1.1 MG/DL 12/22/2012 CHEM 14 7849394 ALK PHOS 31 U/L 12/22/2012 CHEM 14 7321135 SODIUM 138 MMOL/L 12/22/2012 CHEM 14 7472181 CREATININE 1.07 MG/DL 12/22/2012 CHEM 14 5739384 CALCIUM 9.3 MG/DL 12/22/2012 CHEM 14 8562842 POTASSIUM 4.2 MMOL/L 12/22/2012 CHEM 14 0348662 PROT TOT 6.9 GM/DL 12/22/2012 CHEM 14 2375828 GLUCOSE 86 MG/DL 12/22/2012 CHEM 14 7815593 BICARB 30 MMOL/L 12/22/2012 CHEM 14 1719947 ANION GAP 3 MEQ/L 12/22/2012 TSH 1082327 TSH 1.886 uIU/ML 12/22/2012 GFR CALC 2993699 GFR AA >60 ML/MIN 12/22/2012 GFR CALC 4694240 GFR NON-AA >60 ML/MIN 12/22/2012 LIPID GRP HDL TEST 48 MG/DL 12/22/2012 LIPID GRP TRIG 60 MG/DL 12/22/2012 LIPID GRP TEST LDL 121 MG/DL 12/22/2012 LIPID GRP CHOL 181 MG/DL 12/22/2012 LIPID GRP RCHOL/HDL 3.77 RATIO 12/22/2012 CBC 9046630 WBC 4.1 10e9/L 12/22/2012 CBC 5096510 RBC 4.67 10e12/L 12/22/2012 CBC 0173767 HGB 14.1 g/dL 12/22/2012 CBC 9450812 HCT DET 40.6 % 12/22/2012 CBC 3729184 MCV 86.9 fL 12/22/2012 CBC 7741030 MCH 30.2 pg 12/22/2012 CBC 4909011 MCHC 34.7 g/dL 12/22/2012 CBC 2387189 PLT 170 10e9/L 12/22/2012 CBC 2267288 MPV 9.1 fL 12/22/2012 CBC 4760695 LAUREL % 49.2 % 12/22/2012 CBC 0275086 LY % 34.8 % 12/22/2012 CBC 1744993 MON % 12.1 % 12/22/2012 CBC 3931644 EOS % 3.4 % 12/22/2012 CBC 4900838 BASO % 0.5 % 12/22/2012 CBC 5759588 RDW 13.8 % 12/22/2012 CBC 3840134 ABS LAUREL 2.02 10e9/L 12/22/2012 CBC 8141488 ABS LYMPH 1.43 10e9/L 12/22/2012 CBC 5850091 ABS MONO 0.50 10e9/L 12/22/2012 CBC 2237365 ABS EOS 0.14 10e9/L 12/22/2012 CBC 4674766 ABS BASO 0.02 10e9/L 12/22/2012 CBC 1370087 RDW-SD 43.0 fL 12/22/2012 LIPID GRP HDL TEST 52 MG/DL 09/25/2011 LIPID GRP TRIG 48 MG/DL 09/25/2011 LIPID GRP TEST LDL 128 MG/DL 09/25/2011 LIPID GRP CHOL 190 MG/DL 09/25/2011 LIPID GRP RCHOL/HDL 3.65 RATIO 09/25/2011 TSH 7127231 TSH 1.923 uIU/ML 09/25/2011 GFR CALC 5795692 GFR AA >60 ML/MIN 09/25/2011 GFR CALC 3216958 GFR NON-AA >60 ML/MIN 09/25/2011 CHEM 14 9919720 AST 16 U/L 09/25/2011 CHEM 14 2635911 ALT 12 IU/L 09/25/2011 CHEM 14 5321961 BUN 28 MG/DL 09/25/2011 CHEM 14 4613617 ALBUMIN 4.2 GM/DL 09/25/2011 CHEM 14 2685023 CHLORIDE 105 MMOL/L 09/25/2011 CHEM 14 0180098 BILI TOT 0.9 MG/DL 09/25/2011 CHEM 14 9366931 ALK PHOS 35 U/L 09/25/2011 CHEM 14 3919575 SODIUM 138 MMOL/L 09/25/2011 CHEM 14 9170817 CREATININE 1.02 MG/DL 09/25/2011 CHEM 14 9272068 CALCIUM 9.2 MG/DL 09/25/2011 CHEM 14 9978723 POTASSIUM 4.1 MMOL/L 09/25/2011 CHEM 14 7938400 PROT TOT 6.7 GM/DL 09/25/2011 CHEM 14 1594741 GLUCOSE 85 MG/DL 09/25/2011 CHEM 14 8184956 BICARB 29 MMOL/L 09/25/2011 CHEM 14 1452837 ANION GAP 4 MEQ/L 09/25/2011 CBC 2033819 WBC 4.1 10e9/L 09/25/2011 CBC 4354719 RBC 4.71 10e12/L 09/25/2011 CBC 1558862 HGB 14.0 g/dL 09/25/2011 CBC 6737042 HCT DET 40.3 % 09/25/2011 CBC 2656010 MCV 85.6 fL 09/25/2011 CBC 7316246 MCH 29.7 pg 09/25/2011 CBC 5128165 MCHC 34.7 g/dL 09/25/2011 CBC 2527825 PLT 148 10e9/L 09/25/2011 CBC 9544922 MPV 9.1 fL 09/25/2011 CBC 3375552 LAUREL % 48.6 % 09/25/2011 CBC 7275996 LY % 36.6 % 09/25/2011 CBC 2824747 MON % 11.2 % 09/25/2011 CBC 3753508 EOS % 3.4 % 09/25/2011 CBC 3082826 BASO % 0.2 % 09/25/2011 CBC 2559356 RDW 13.2 % 09/25/2011 CBC 2752102 ABS LAUREL 1.99 10e9/L 09/25/2011 CBC 5442394 ABS LYMPH 1.50 10e9/L 09/25/2011 CBC 5160398 ABS MONO 0.46 10e9/L 09/25/2011 CBC 1073702 ABS EOS 0.14 10e9/L 09/25/2011 CBC 6377039 ABS BASO 0.01 10e9/L 09/25/2011 CBC 5819014 RDW-SD 40.9 fL 09/25/2011 Review of Systems [...] time 05/25/2013 None Full Exam - General 1995 Psychiatric mood and affect Overall: normal mood and affect 05/25/2013 None Full Exam - General 1994 Psychiatric mood and affect Mood: happy 05/25/2013 None Full Exam - General 1995 Constitutional general appearance Overall: well developed 11/24/2012 None Full Exam - General 1995 Constitutional general appearance Overall: in no acute distress 11/24/2012 None Full Exam - General 1995 Constitutional general appearance Overall: well nourished 11/24/2012 None Full Exam - General 1995 Eyes conjunctiva /eyelids Overall: conjunctiva clear 11/24/2012 None Full Exam - General 1995 Eyes conjunctiva /eyelids Overall: cornea clear 11/24/2012 None Full Exam - General 1994 Psychiatric mood and affect Mood: happy 11/24/2012 None Full Exam - General 1994 Eyes conjunctiva /eyelids Overall: eyelids normal 11/24/2012 None Full Exam - General 1994 Eyes pupils and irises Overall: pupils equal, round, reactive to light and accomodation 11/24/2012 None Full Exam - General 1995 Ears/Nose/Throat oral cavity/pharynx/larynx Overall: oral mucosa clear 11/24/2012 None Full Exam - General 1995 Ears/Nose/Throat oral cavity/pharynx/larynx Overall: oropharyngeal mucosa clear 11/24/2012 None Full Exam - General 1995 Ears/Nose/Throat oral cavity/pharynx/larynx Overall: no masses 11/24/2012 None Full Exam - General 1994 Respiratory auscultation Overall: breath sounds clear bilaterally 11/24/2012 None Full Exam - General 1994 Respiratory respiratory effort/rhythm Overall: no retractions 11/24/2012 None Full Exam - General 1994 Respiratory respiratory effort/rhythm Overall: normal rate 11/24/2012 None Full Exam - General 1994 Cardiovascular extremities Overall: no clubbing 11/24/2012 None Full Exam - General 1994 Cardiovascular auscultation of heart Overall: regular rate 11/24/2012 None Full Exam - General 1994 Cardiovascular auscultation of heart Overall: normal heart sounds 11/24/2012 None Full Exam - General 1994 Cardiovascular auscultation of heart Overall: no murmurs 11/24/2012 None Full Exam - General 1994 Abdomen abdominal exam Overall: no tenderness 11/24/2012 None Full Exam - General 1994 Abdomen abdominal exam Overall: normal bowel sounds 11/24/2012 None Full Exam - General 1994 Musculoskeletal digits and nails Digits: a normal exam 11/24/2012 None Full Exam - General 1995 Musculoskeletal spine, ribs and pelvis Posture: lordosis 11/24/2012 None Full Exam - General 1994 Musculoskeletal spine, ribs and pelvis Sacroiliac joints: a normal exam 11/24/2012 None Full Exam - General 1995 Musculoskeletal head and neck Overall: head atraumatic [...] nourished 05/26/2012 None Full Exam - General 1994 [...] happy 05/26/2012 None Full Exam - General 1995 Eyes conjunctiva /eyelids Overall: conjunctiva clear 05/26/2012 None Full Exam - General 1994 Eyes conjunctiva /eyelids Overall: cornea clear 05/26/2012 None Full Exam - General 1994 Eyes conjunctiva /eyelids Overall: eyelids normal 05/26/2012 None Full Exam - General 1994 Eyes pupils and irises Overall: pupils equal, round, reactive to light and accomodation 05/26/2012 None Full Exam - General 1995 [...] 10/02/2011 dry, rough, scaly lesion to left yarsani, right yarsani, bridge of left nose x 2-removed using electrocautery. Liquid nitrogen use to lesion proximal nasal lesion Full Exam - General 1994 Constitutional general appearance Overall: in no acute distress 09/20/2011 None Full Exam - General 1994 Eyes pupils and irises Overall: pupils equal, round, reactive to light and accomodation 09/20/2011 None Full Exam - General 1994 Eyes conjunctiva /eyelids Overall: conjunctiva clear 09/20/2011 None Full Exam - General 1994 Eyes conjunctiva /eyelids Overall: eyelids normal 09/20/2011 None Full Exam - General 1994 Eyes conjunctiva /eyelids Overall: cornea clear 09/20/2011 None Full Exam - General 1994 Ears/Nose/Throat oral cavity/pharynx/larynx Overall: oropharyngeal mucosa clear 09/20/2011 None Full Exam - General 1994 Ears/Nose/Throat oral cavity/pharynx/larynx Overall: no masses 09/20/2011 None Full Exam - General 1994 Ears/Nose/Throat [...] time 09/20/2011 None Procedures Procedure Codes Date PPPS, SUBSEQ VISIT CPT -4: G0439 08/01/2017 PPPS, SUBSEQ VISIT CPT -4: G0439 01/23/2016 DESTRUCT PREMALG LESION CPT-4: 95876 10/02/2011 DESTRUCT PREMALG LES 2-14 CPT-4: 13042 10/02/2011 Vital Signs Date Vital 10/21/2017 Blood Pressure 1: 142/82 Code : 8480-6 Heart Rate 1: 59 bpm Height: 5'9" SpO2: 98% Weight: 10/18/2017 Blood Pressure 1: 146/78 Code : 8480-6 BMI: 27.2 Code : 71859-9 Heart Rate 1 : 65 bpm Height: 5'9" SpO2: 96% Weight: 184 lbs 09/10/2017 Blood Pressure 1: 122/80 Code : 8480-6 BMI: 27.2 Code : 29820-5 Heart Rate 1 : 68 bpm Height: 5'9" SpO2: 96% Weight: 184 lbs 5 oz 03/14/2017 Blood Pressure 1: 128/80 Code : 8480-6 BMI: 28.1 Code : 18908-8 Heart Rate 1 : 63 bpm Height: 5'9" SpO2: 99% Weight: 190 lbs 09/11/2016 Blood Pressure 1: 120/70 Code : 8480-6 BMI: 28.2 Code : 50282-5 Heart Rate 1 : 56 bpm Height: 5'9" SpO2: 97% Weight: 191 lbs 03/07/2016 Blood Pressure 1: 124/66 Code : 8480-6 BMI: 27.3 Code : 84847-0 Heart Rate 1 : 64 bpm Height: 5'9" SpO2: 98% Weight: 185 lbs 01/23/2016 Blood Pressure 1: 140/66 Code : 8480-6 BMI: 27.2 Code : 95730-8 Heart Rate 1 : 55 bpm Height: 5'9" SpO2: 98% Waist Measure (cm): 86 cm Weight: 184 lbs 11/09/2015 Blood Pressure 1: 132/80 Code : 8480-6 BMI: 26.9 Code : 19519-8 Heart Rate 1 : 60 bpm Height: 5'9" SpO2: 98% Weight: 182 lbs 08/09/2015 Blood Pressure 1: 122/72 Code : 8480-6 BMI: 27.0 Code : 98756-2 Heart Rate 1 : 61 bpm Height: 5'9" SpO2: 98% Weight: 182 lbs 8 oz 07/04/2015 Blood Pressure 1: 132/80 Code : 8480-6 BMI: 27.0 Code : 91319-8 Heart Rate 1 : 52 bpm Height: 5'9" SpO2: 98% Weight: 183 lbs 06/30/2015 Blood Pressure 1: 162/88 Code : 8480-6 Heart Rate 1: 58 bpm 06/14/2015 Blood Pressure 1: 170/96 Code : 8480-6 BMI: 27.3 Code : 95767-0 Heart Rate 1 : 55 bpm Height: 5'9" SpO2: 98% Weight: 185 lbs 03/14/2015 Blood Pressure 1: 152/80 Code : 8480-6 Blood Pressure 1: 136/82 Code: 8480-6 BMI: 27.5 Code: 42644-4 Heart Rate 1: 56 bpm Height: 5'9" SpO2: 98% Weight: 186 lbs 12/13/2014 Blood Pressure 1: 138/80 Code : 8480-6 BMI: 27.0 Code : 72572-3 Heart Rate 1 : 70 bpm Height: 5'9" Weight: 183 lbs 11/16/2014 Blood Pressure 1: 130/70 Code : 8480-6 Heart Rate 1: 64 bpm Height: Weight: 09/09/2014 Blood Pressure 1: 140/90 Code : 8480-6 BMI: 26.3 Code : 35270-4 Heart Rate 1 : 78 bpm Height: 5'9" Weight: 178 lbs 08/25/2014 Blood Pressure 1: 160/90 Code : 8480-6 BMI: 26.3 Code : 45973-0 Heart Rate 1 : 79 bpm Height: 5'9" SpO2: 97% Weight: 178 lbs 06/10/2014 Blood Pressure 1: 142/88 Code : 8480-6 BMI: 26.7 Code : 40688-1 Heart Rate 1 : 63 bpm Height: 5'9" SpO2: 97% Weight: 181 lbs 12/03/2013 Blood Pressure 1: 138/78 Code : 8480-6 BMI: 26.0 Code : 15130-0 Heart Rate 1 : 68 bpm Height: 5'9" SpO2: 98% Weight: 176 lbs 05/25/2013 Blood Pressure 1: 152/84 Code : 8480-6 Blood Pressure 2: 138/86 Code: 8480-6 BMI: 26.1 Code: 63155-8 Heart Rate 1: 80 bpm Height: 5'9" Weight: 177 lbs 11/24/2012 Blood Pressure 1: 124/68 Code : 8480-6 BMI: 25.4 Code : 77873-7 Heart Rate 1 : 80 bpm Height: 5'9" Weight: 172 lbs 05/26/2012 Blood Pressure 1: 120/58 Code : 8480-6 BMI: 26.1 Code : 60672-0 Heart Rate 1 : 72 bpm Height: 5'9" Respiratory Rate: 16 bpm Weight: 177 lbs 11/27/2011 Blood Pressure 1: 116/68 Code : 8480-6 BMI: 25.5 Code : 63475-1 Heart Rate 1 : 60 bpm Height: 5'9" Respiratory Rate: 16 bpm Weight: 172 lbs 8 oz 10/02/2011 Blood Pressure 1: 134/74 Code : 8480-6 Heart Rate 1: 60 bpm 09/20/2011 Blood Pressure 1: 116/60 Code : 8480-6 BMI: 25.1 Code : 45516-0 Heart Rate 1 : 80 bpm Height: 5'9" SpO2: 98% Weight: 170 lbs Functional Status No Functional Status data History of Present Illness Symptom Name Status Result Effective Date Notes Hospital Follow Up _ Other: severe neck [...] data Encounters Encounter Performer Location Codes Date [id number] EST. PATIENT, LEVEL III Diagnosis: Muscle spasm of back[ICD10: M62.830] Diagnosis: Essential (primary) hypertension[ICD10: I10] Bernadette Chau MD, [facility] CPT-4: 37238 10/21/2017 ([id number]) 72818 EST. PATIENT, LEVEL III Diagnosis: Gastro-esophageal reflux disease without esophagitis[ICD10: K21.9] Diagnosis: Cervicalgia[ICD10: M54.2] Michelle Chau MD, [facility] CPT-4: 90911 10/18/2017 [id number]) 32262 EST. PATIENT, LEVEL IV Diagnosis: Essential (primary) hypertension[ICD10: I10] Diagnosis: Essential tremor[ICD10: G25.0] Bernadette Chau MD, [facility] CPT- 4: 08083 09/10/2017 [id number]) 53617 EST. PATIENT, LEVEL IV Diagnosis: Essential (primary) hypertension[ICD10: I10] Diagnosis: Essential tremor[ICD10: G25.0] Bernadette Chau MD, [facility] CPT- 4: 85489 03/14/2017 [id number]) 32832 EST. PATIENT, LEVEL IV Diagnosis: Essential (primary) hypertension[ICD10: I10] Diagnosis: Essential tremor[ICD10: G25.0] Bernadette Chau MD, [facility] CPT- 4: 48342 09/11/2016 [id number]) 48428 EST. PATIENT, LEVEL IV Diagnosis: Essential (primary) hypertension[ICD10: I10] Diagnosis: Essential tremor[ICD10: G25.0] Bernadette Chau MD, [facility] CPT- 4: 72287 03/07/2016 ([id number]) 48545 EST. PATIENT, LEVEL III Diagnosis: Essential (primary) hypertension[ICD10: I10] Diagnosis: Essential tremor[ICD10: G25.0] Bernadette Chau MD [facility] CPT- 4: 87082 11/09/2015 ([id number]) 38445 EST. PATIENT, LEVEL III Diagnosis: Essential (primary) hypertension[ICD10: I10] Bernadette Chau MD [facility] CPT-4: 62592 08/09/2015 ([id number]) 04455 EST. PATIENT, LEVEL III Diagnosis: Essential (primary) hypertension[ICD10: I10] Bernadette Chau MD [facility] CPT-4: 46935 07/04/2015 ([id number]) Miscellaneous no charge Diagnosis: Essential (primary) hypertension[ICD10: I10] Bernadette Chau MD [facility] CPT-4: 12866 06/30/2015 ([id number]) 97376 EST. PATIENT, LEVEL IV Diagnosis: Essential (primary) hypertension[ICD10: I10] Diagnosis: Male erectile disorder[ICD10: F52.21] Diagnosis: Gastro-esophageal reflux disease without esophagitis[ICD10: K21.9] Bernadette Chau MD [facility] CPT-4: 74201 06/14/2015 ([id number]) 02378 EST. PATIENT, LEVEL IV Diagnosis: Essential (primary) hypertension[ICD10: I10] Diagnosis: Low back pain[ICD10: M54.5] Diagnosis: Malignant neoplasm of prostate[ICD10: C61] Bernadette Chau MD [facility] CPT-4: 47604 03/14/2015 ([id number]) 55739 EST. PATIENT, LEVEL III Diagnosis: Essential (primary) hypertension[ICD10: I10] Bernadette Chau MD [facility] CPT-4: 98596 12/13/2014 ([id number]) 00951 EST. PATIENT, LEVEL II Diagnosis: ESSENTIAL HYPERTENSION[ICD9: 401.9] Bernadette Chau MD [facility] CPT-4: 61731 11/16/2014 ([id number]) 00876 EST. PATIENT, LEVEL III Diagnosis: ESSENTIAL HYPERTENSION[ICD9: 401.9] Diagnosis: GENERALIZED ANXIETY DISEASE[ICD9: 300.02] Bernadette Chau MD, [facility] CPT-4: 71274 09/09/2014 ([id number]) 17927 EST. PATIENT, LEVEL IV Diagnosis: ESSENTIAL HYPERTENSION[ICD9: 401.9] Diagnosis: GENERALIZED ANXIETY DISEASE[ICD9: 300.02] Bernadette Chau MD, [facility] CPT-4: 99356 08/25/2014 ([id number]) 24411 EST. PATIENT, LEVEL IV Diagnosis: ESSENTIAL HYPERTENSION[ICD9: 401.9] Diagnosis: GENERALIZED ANXIETY DISEASE[ICD9: 300.02] Diagnosis: ESOPHAGEAL REFLUX[ICD9: 530.81] Bernadette Chau MD [facility] CPT- 4: 87529 06/10/2014 ([id number]) 84380 EST. PATIENT, LEVEL IV Diagnosis: ESSENTIAL HYPERTENSION[ICD9: 401.9] Diagnosis: ESOPHAGEAL REFLUX[ICD9: 530.81] Bernadette Chau MD, [facility] CPT- 4: 64060 12/03/2013 ([id number]) 20858 EST. 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 PATIENT, LEVEL IV Diagnosis: ESSENTIAL HYPERTENSION[SNOMED: 11980884] Diagnosis: Nausea[ICD9: 787.02] Diagnosis: ESOPHAGEAL REFLUX[ICD9: 530.81] Bernadette Chau MD [facility] CPT- 4: 77419 11/24/2012 ([id number]) 92557 EST. 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 PATIENT, LEVEL III Diagnosis: ESSENTIAL HYPERTENSION[SNOMED: 84777699] [facility] CPT-4: 14364 11/27/2011 ([id number]) OFFICE VISIT, NEW - LEVEL 3 Diagnosis: ESSENTIAL HYPERTENSION[SNOMED: 24214409] Diagnosis: Impotence[ICD9: 607.84] Diagnosis: Osteoarthritis[ICD9: 715.90] [facility] CPT- 4: 41797 09/20/2011 Plan of Care Planned Activity Notes Codes Status Date Appointment: [phone] [place] (15 min) Moderate 10/22/2017 Visit Plan: Parkinson's [...] and start neck exercises daily. 10/18/2017 Appointment: Michelle Dutton WPtel: [phone] [id number] (30 min) Complex 10/18/2017 Patient Education: Patient [...] worsen. 09/10/2017 Appointment: Bernadette Chau WPtel: [phone] [facility] (15 min) Moderate 09/10/2017 Patient Education: Patient [...] care. 03/14/2017 Appointment: [phone] [place] (15 min) Moderate 03/14/2017 Patient Education: Patient [...] this time 09/11/2016 Appointment: [phone] [place] (15 min) Moderate 09/11/2016 Patient Education: Patient [...] monitor symptoms. 03/07/2016 Appointment: Bernadette Chau WPtel: [facility] [place] (15 min) Moderate 03/07/2016 Patient Education: Patient [...] care surrogate. 01/23/2016 Appointment: Kelly Mancera WPtel: [facility]5 [facility] [facility] - Annual Wellness Visit 01/23/2016 Patient Education: [...] essential tremor. 11/09/2015 Appointment: [phone] [place] (15 min) Moderate 11/09/2015 Patient Education: Patient [...] home. 08/09/2015 Appointment: [phone] [place] (15 min) Moderate 08/09/2015 Patient Education: Patient [...] acute concerns. 07/04/2015 Appointment: [phone] [place] (15 min) Moderate 07/04/2015 Patient Education: Patient [...] not improving. 06/14/2015 Appointment: [facility]au [phone] [place] (30 min) Complex 06/14/2015 Patient Education: Patient [...] and sacrum. 03/14/2015 Appointment: [phone] [place] (15 min) Moderate 03/14/2015 Patient Education: Patient [...] pt is to call for acute concerns. julia - pt to take the medication at bedtime bring blood pressure machine by the office. increase spironolactone to 50mg daily. 12/13/2014 Appointment: Bernadette Chau WPtel: [facility] [place] (15 min) Moderate 12/13/2014 Patient Education: Patient Medication Summary Completed 12/13/2014 Patient Education: Hypertension Completed 12/13/2014 Appointment: Bernadette Chau WPtel: [facility] [place] Follow up 12/09/2014 Visit Plan: Hypertension - [...] improving. 09/09/2014 Appointment: Bernadette Chau WPtel: [phone] [facility] (15 min) Moderate 09/09/2014 Patient Education: Patient [...] acute concerns. 08/25/2014 Appointment: Bernadette Chau WPtel: [phone] [facility] (10 min) Simple 08/25/2014 Patient Education: Patient [...] on cialis. 06/10/2014 Appointment: [phone] [place] Follow up 06/10/2014 Patient Education: Patient Medication [...] home. 12/03/2013 Appointment: Bernadette Chau WPtel: [phone] [facility] Follow up 12/03/2013 Patient Education: Patient Medication [...] of cialis 05/25/2013 Appointment: Bernadette Chau WPtel: [phone] [facility] Follow up 05/25/2013 Patient Education: Patient Medication [...] not improving. 11/24/2012 Appointment: Bernadette Chau WPtel: [facility]5 [facility] Follow up 11/24/2012 Patient Education: Patient Medication [...] times daily. 05/26/2012 Appointment: Bernadette Chau WPtel: [facility]5 [place] [phone] Established Patient Preventative visit 05/26/2012 Patient Education: [...] at home. 11/27/2011 Appointment: Bernadette Chau WPtel: [address] [place], [place] [phone] Follow up 11/27/2011 Patient Education: Patient Medication Summary Completed 11/27/2011 Patient Education: High Blood Pressure: Essential Hypertension Completed 2011 Visit Plan: Wound Instructions - Pt was instruced to keep the wound clean, wash with antibacterial soap, use triple antibiotic ointment, call if redness, pustular drainage, or any other acute conerns. 10/02/2011 Appointment: Michelle Dutton WPtel: [address] [place], [place] [id number] Surgical Procedure 10/02/2011 Patient Education: Patient Medication [...] pain symptoms. 09/20/2011 Appointment: Bernadette Chau WPtel: [facility] [place] New Patient 09/20/2011 Patient Education: Patient Medication [...] therapy to be ordered through home health. . Hypertension - well controlled - continue [...] change in blood pressure readings at home. Declined Procedure: (38507) FLU VACC 4 WILVER 3 YRS PLUS [...]
--- OUTSIDE RECORDS SUMMARY | 2018-01-04 00:36 | XMS REPORT | CCD ---
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 Name Role Phone PP Unavailable CCM Unavailable Summary Purpose Interface Exchange Insurance Providers Payer name Policy type / Coverage type Covered libertarian ID Effective Begin Date Effective End Date WPS Medicare Part B Medicare Part B [id number] 2017 Unknown [facility] Medicare Part B [id number] Unknown Family history Uncle Diagnosis Age At [...] Unknown Retired 09/20/[address]: 262465289 Nonsmoker smoked for 2-3 years in 20's, used smokeless tobacco for 40 yrs 09/20/[address]: 0016032 Former smoker quit 1965 09/20/2011 Alcohol history [...] Fill Instructions ibuprofen 600 mg tablet RxNorm: 643363 1 Tablet(s) PO TID 10/2411/06/2017 Active ibuprofen 600 mg tablet RxNorm: 087369 1 Tablet(s) PO TID 10/2410/23/2017 Inactive Requip 0.25 mg tablet RxNorm: 432725 1 Tablet(s) PO BID 201702/17/2018 Active buspirone 15 mg tablet RxNorm: 156281 Tablet(s) Take 1 pill in the morning, 1/2 pill at 1 or 2pm and 1 pill at bedtime 10/21/2017 No Stop Date Active prednisone 20 mg tablet RxNorm: 480764 3 Tablet(s) PO daily -Prescribed by Dr. Dann Rod on 10/20/17 10/20/20172017 Inactive Dexilant 60 mg capsule, delayed release RxNorm: 758010 1 Capsule(s) PO daily 10/18/2017 No Stop Date Active tramadol 50 mg tablet RxNorm: 756813 1 Tablet(s) PO TID PRN 10/24/2017 Inactive hydrochlorothiazide 25 mg tablet RxNorm: 298526 TAKE 1 TABLET BY MOUTH IN THE MORNING 09/30/2017 04/27/2018 Active Generic For:HYDRODIURIL 25 MG TABLET 2017 11:36:14 AM Sinemet 10 mg-100 mg tablet RxNorm: 928955 1 Tablet(s) PO BID morning and early afternoon 09/10/2017 10/20/2017 Inactive potassium chloride ER 10 mEq capsule,extended release RxNorm: 069693 1 Capsule(s) PO TIW 07/22/2017 06/22/2018 Active buspirone 15 mg tablet RxNorm: 212288 Tablet(s) Take 1 pill in the morning, 1/2 pill at 1 or 2pm and 1 pill at bedtime 05/08/2017 09/28/2017 Inactive doxazosin 1 mg tablet RxNorm: 957686 TAKE 1/2 (ONE- HALF) TABLET TWICE DAILY 04/10/2017 11/05/2017 Active Generic For:CARDURA 1MG 04/10/2017 1:06:52 PM carvedilol 12.5 mg tablet RxNorm: 550160 Tablet(s) TAKE 1 TABLET BY MOUTH TWICE DAILY 04/10/2017 11/05/2017 Active hydrochlorothiazide 25 mg tablet RxNorm: 776259 TAKE 1 TABLET BY MOUTH IN THE MORNING 03/05/2017 09/29/2017 Inactive Generic For:HYDRODIURIL 25 MG TABLET 2017 10:38:53 AM buspirone 15 mg tablet RxNorm: 318744 Tablet(s) Take 1 pill in the morning, 1/2 pill at 1 or 2pm and 1 pill at bedtime 12/06/2016 04/28/2017 Inactive doxazosin 1 mg tablet RxNorm: 802039 1/2 Tablet(s) PO BID 201604/09/2017 Inactive lisinopril 40 mg tablet RxNorm: 399823 TAKE 1/2 TABLET BY MOUTH TWICE DAILY 09/18/2016 09/12/2017 Inactive Generic For:ZESTRIL 40MG 09/18/2016 9:08:05 AM carvedilol 12.5 mg tablet RxNorm: 576183 Tablet(s) TAKE 1 TABLET BY MOUTH TWICE DAILY 09/14/2016 04/09/2017 Inactive potassium chloride ER 10 mEq capsule,extended release RxNorm: 219817 1 Capsule(s) PO TIW 08/14/2016 07/15/2017 Inactive hydrochlorothiazide 25 mg tablet RxNorm: 439649 TAKE 1 TABLET BY MOUTH IN THE MORNING 08/06/2016 03/03/2017 Inactive Generic For:HYDRODIURIL 25 MG TABLET 2016 9:47:38 AM doxazosin 1 mg tablet RxNorm: 030474 1/2 Tablet(s) PO BID 201611/11/2016 Inactive fexofenadine 180 mg tablet RxNorm: 739086 1 Tablet(s) PO daily 04/05/2016 10/01/2016 Inactive fexofenadine 180 mg tablet RxNorm: 324427 1 Tablet(s) PO daily 04/05/2016 04/04/2016 Inactive buspirone 15 mg tablet RxNorm: 180306 Tablet(s) Tablet(s) take 1 pill in the morning, 1/2 pill at 1 or 2pm and 1 pill at bedtime 201609/07/2016 Inactive Generic For:BUSPAR 15MG 08/19/2014 9:29:55 AM carvedilol 12.5 mg tablet RxNorm: 818842 Tablet(s) TAKE 1 TABLET BY MOUTH TWICE DAILY 02/14/2016 09/10/2016 Inactive potassium chloride ER 10 mEq capsule,extended release RxNorm: 646083 1 Capsule(s) PO TIW 02/08/2016 08/13/2016 Inactive hydrochlorothiazide 25 mg tablet RxNorm: 855635 1 Tablet(s) PO QAM 01/09/2016 08/05/2016 Inactive carvedilol 12.5 mg tablet RxNorm: 380416 TAKE 1 TABLET BY MOUTH TWICE DAILY 10/18/2015 02/13/2016 Inactive Generic For:COREG 12.5MG 10/17/2015 1:04:24 PM lisinopril 40 mg tablet RxNorm: 953069 1/2 Tablet(s) PO BID 08/15/2016 Inactive Generic For:ZESTRIL 20MG 07/21/2014 9:29:18 AM doxazosin 1 mg tablet RxNorm: 546175 1/2 Tablet(s) PO BID 201510/31/2015 Inactive this is FYI for now - and will remain this in the future, does not need a fill right now doxazosin 1 mg tablet RxNorm: 003802 1 Tablet(s) PO BID 201506/29/2015 Inactive doxazosin 1 mg tablet RxNorm: 117024 1 Tablet(s) PO BID 201507/03/2015 Inactive potassium chloride ER 10 mEq capsule,extended release RxNorm: 851367 1 Capsule(s) PO TIW 06/14/2015 01/09/2016 Inactive hydrochlorothiazide 25 mg tablet RxNorm: 263406 1 Tablet(s) PO QAM 06/14/2015 01/08/2016 Inactive buspirone 15 mg tablet RxNorm: 475550 Tablet(s) take 1 pill in the morning, 1/2 pill at 1 or 2pm and 1 pill at bedtime 06/13/2015 12/09/2015 Inactive Generic For: BUSPAR 15MG 08/19/2014 9:29:55 AM carvedilol 12.5 mg tablet RxNorm: 894182 TAKE 1 TABLET BY MOUTH TWICE DAILY 05/20/2015 09/16/2015 Inactive Generic For:COREG 12.5MG 05/20/2015 9:04:34 AM carvedilol 12.5 mg tablet RxNorm: 880838 Tablet(s) 1 Tablet(s) PO BID 05/20/2015 05/19/2015 Inactive carvedilol 12.5 mg tablet RxNorm: 734281 1 Tablet(s) PO BID 05/19/2015 Inactive spironolactone 50 mg tablet RxNorm: 022331 1 Tablet(s) PO QAM 12/13/2014 06/13/2015 Inactive carvedilol 12.5 mg tablet RxNorm: 420419 1 Tablet(s) PO BID 01/11/2015 Inactive spironolactone 25 mg tablet RxNorm: 908724 1 Tablet(s) PO QAM 09/13/2014 12/12/2014 Inactive spironolactone 25 mg tablet RxNorm: 897264 1 Tablet(s) PO QAM 09/13/2014 09/12/2014 Inactive buspirone 15 mg tablet RxNorm: 964448 Tablet(s) take 1 pill in the morning, 1/2 pill at 1 or 2pm and 1 pill at bedtime 09/09/2014 03/07/2015 Inactive Generic For: BUSPAR 15MG 08/19/2014 9:29:55 AM lisinopril 40 mg tablet RxNorm: 040332 1/2 Tablet(s) PO BID 08/19/2015 Inactive Generic For:ZESTRIL 20MG 07/21/2014 9:29:18 AM Coreg 6.25 mg tablet RxNorm: 098166 1 Tablet(s) PO BID 201409/13/2014 Inactive buspirone 15 mg tablet RxNorm: 463696 TAKE 1 TABLET BY MOUTH TWICE DAILY 08/19/2014 09/08/2014 Inactive Generic For:BUSPAR 15MG 08/19/2014 9:29:55 AM lisinopril 20 mg tablet RxNorm: 526662 1 Tablet(s) PO daily TAKE 1 TABLET BY MOUTH ONCE DAILY. 07/21/2014 07/20/2014 Inactive Generic For:*ZESTRIL 20MG Generic For:*ZESTRIL 20MG 07/29/2013 11:19:45 AM lisinopril 20 mg tablet RxNorm: 243626 TAKE 1 TABLET BY MOUTH ONCE DAILY. 07/21/2014 08/24/2014 Inactive Generic For:ZESTRIL 20MG 07/21/2014 9:29:18 AM buspirone 15 mg tablet RxNorm: 241797 1 Tablet(s) BID 1 Tablet(s) PO BID 06/21/2014 08/18/2014 Inactive Tamiflu 75 mg capsule RxNorm: 570762 1 Capsule(s) PO daily 03/1203/11/2014 Inactive Tamiflu 75 mg capsule RxNorm: 916508 1 Capsule(s) PO daily 03/1203/21/2014 Inactive buspirone 15 mg tablet RxNorm: 644768 1 Tablet(s) BID 1 Tablet(s) PO BID 02/16/2014 06/20/2014 Inactive buspirone 15 mg tablet RxNorm: 341722 1 Tablet(s) PO BID 201302/15/2014 Inactive lisinopril 20 mg tablet RxNorm: 814525 Tablet(s) PO TAKE 1 TABLET BY MOUTH ONCE DAILY. 07/30/2013 07/20/2014 Inactive Generic For:*ZESTRIL 20MG Generic For:* ZESTRIL 20MG 07/29/2013 11:19:45 AM buspirone 15 mg tablet RxNorm: 234259 1 Tablet(s) PO BID 201310/18/2013 Inactive Zithromax 250 mg tablet RxNorm: 441150 Tablet(s) PO 03/18/2013 06/13/2015 Inactive as directed buspirone 15 mg tablet RxNorm: 543429 Tablet(s) PO TAKE 1 TABLET AT BEDTIME AND TAKE 1/2 A TABLET TWICE A DAY 12/22/2012 05/24/2013 Inactive buspirone 15 mg tablet RxNorm: 641343 1 at hs 1/2 bid Tablet(s) PO daily 11/27/2012 10/20/2017 Inactive buspirone 15 mg tablet RxNorm: 773356 Tablet(s) PO daily 201211/26/2012 Inactive 1 q hs and 1/2 daily buspirone 15 mg tablet RxNorm: 417132 Tablet(s) PO daily 2012 No Stop Date Active 1 q hs and 1/2 daily buspirone 15 mg tablet RxNorm: 609875 Tablet(s) PO daily 201210/26/2012 Inactive 1 q hs and 1/2 daily lisinopril 20 mg tablet RxNorm: 353281 Tablet(s) PO TAKE 1 TABLET BY MOUTH ONCE DAILY. 08/05/2012 07/29/2013 Inactive lisinopril 20 mg tablet RxNorm: 436547 Tablet(s) PO TAKE 1 TABLET BY MOUTH ONCE DAILY. 07/07/2012 08/04/2012 Inactive lisinopril 20 mg tablet RxNorm: 580680 Tablet(s) PO 01/07/2012 07/06/2012 Inactive TAKE 1 TABLET BY MOUTH ONCE DAILY. lisinopril 20 mg tablet RxNorm: 300412 Tablet(s) PO 12/10/2011 01/06/2012 Inactive TAKE 1 TABLET BY MOUTH ONCE DAILY. lisinopril 20 mg tablet RxNorm: 700618 1 Tablet(s) PO daily 01/201212/09/2011 Inactive can have #90 if prefers lisinopril 20 mg tablet RxNorm: 684938 1 Tablet(s) PO daily 01/201211/12/2011 Inactive can have #90 if prefers buspirone 15 mg tablet RxNorm: 946371 Tablet(s) PO daily 201110/26/2012 Inactive 1 q hs and 1/2 daily Calcium 600 + D(3) oral RxNorm: 583579 oral No Start Date Active Percocet 5 mg-325 mg tablet RxNorm: 2826766 1 Tablet(s) PO Q6 as needed breakthrough pain- Prescribed by Dr. Lebron on 10/20/17 No Start Date Active Fish Oil Concentrate Oral RxNorm: Oral No Start Date Active diazepam 5 mg tablet RxNorm: 887688 1 Tablet(s) PO Q6 as needed muscle spasms - Prescribed by Dr. Dann Rod on 10/20/17 No Start Date Active Centrum Silver Oral RxNorm: Oral No Start Date Active Zithromax 250 mg tablet RxNorm: 290270 Tablet(s) PO No Start Date 03/17/2013 Inactive as directed lisinopril 20 mg tablet RxNorm: 224773 1 Tablet(s) PO daily No Start Date 11/16/2014 Inactive buspirone 15 mg tablet RxNorm: 089140 1 Tablet(s) PO daily No Start Date 09/24/2011 Inactive B Complex 1 Oral RxNorm: Oral No Start Date 06/13/2015 Inactive lisinopril 20 mg tablet RxNorm: 689661 1 Tablet(s) PO daily No Start Date [...] 07/18/2016 Lipid Ord30 C/HDL 4.5 Ratio 07/18/2016 Comp Metabolic Tto220 NA 137 mEq/L 03/08/2016 Comp Metabolic Ekg734 K 3.8 mEq/L 03/08/2016 Comp Metabolic Par939 CL 100 mEq/L 03/08/2016 Comp Metabolic Qnf170 CO2 32.0 mEq/L 03/08/2016 Comp Metabolic Baj115 ANION GAP 9 03/08/2016 Comp Metabolic Bqx353 GLUCOSE 88 mg/dL 03/08/2016 Comp Metabolic Ura928 Creat 1.1 mg/dL 03/08/2016 Comp Metabolic Zxv969 eGFR 67 ml/min/1.73m2 03/08/2016 Comp Metabolic Bfi468 BUN 17 mg/dL 03/08/2016 Comp Metabolic Nwc835 B/C Ratio 15.0 Ratio 03/08/2016 Comp Metabolic Vel734 CALCIUM 9.2 mg/dL 03/08/2016 Comp Metabolic Yhl973 ALK PHOS 43 U/L 03/08/2016 Comp Metabolic Dqc020 AST(SGOT) 19 U/L 03/08/2016 Comp Metabolic Apu978 ALT(SGPT) 17 U/L 03/08/2016 Comp Metabolic Qqk361 BILI T 1.1 mg/dL 03/08/2016 Comp Metabolic Ceo705 ALBUMIN 4.2 g/dL 03/08/2016 Comp Metabolic Esd164 TPRO 7.1 g/dL 03/08/2016 Comp Metabolic Unq393 GLOB 2.9 g/dL 03/08/2016 Comp Metabolic Uhu603 A/G Ratio 1.5 Ratio 03/08/2016 Comp Metabolic Qts031 Osmo 275 mOsmo 03/08/2016 Tsh Ord6 hTSH II 2.21 uIU/mL 03/08/2016 Cbc With Differential Ord2 WBC 4.53 K/ul 03/08/2016 Cbc With Differential Ord2 RBC 4.57 M/ul 03/08/2016 Cbc With Differential Ord2 HGB 14.2 g/dl 03/08/2016 Cbc With Differential Ord2 Neut% 48.4 % 03/08/2016 Cbc With Differential Ord2 HCT 40.6 % 03/08/2016 Cbc With Differential Ord2 MCV 88.8 fl 03/08/2016 Cbc With Differential Ord2 Lymph% 36.6 % 03/08/2016 Cbc With Differential Ord2 MCH 31.1 pg 03/08/2016 Cbc With Differential Ord2 Humphreys% 10.8 % 03/08/2016 Cbc With Differential Ord2 Eos% 3.1 % 03/08/2016 Cbc With Differential Ord2 MCHC 35.0 pg 03/08/2016 Cbc With Differential Ord2 PLT 166 K/ul 03/08/2016 Cbc With Differential Ord2 Baso% 1.1 % 03/08/2016 Cbc With Differential Ord2 Neut ABS# 2.19 K/ul 03/08/2016 Cbc With Differential Ord2 RDW 13.5 % 03/08/2016 Cbc With Differential Ord2 Lymph ABS# 1.66 K/ul 03/08/2016 Cbc With Differential Ord2 Humphreys ABS# 0.5 K/ul 03/08/2016 Cbc With Differential Ord2 Eos ABS# 0.1 K/ul 03/08/2016 Cbc With Differential Ord2 Baso ABS# 0.1 K/ul 03/08/2016 Lipid Ord30 CHOL 208 mg/dL 03/08/2016 Lipid Ord30 HDL 47.0 mg/dl 03/08/2016 Lipid Ord30 TRIG 99 mg/dL 03/08/2016 Lipid Ord30 LDL 141 mg/dL 03/08/2016 Lipid Ord30 C/HDL 4.4 Ratio 03/08/2016 Comp Metabolic Mrt122 NA 139 mEq/L 06/15/2015 Comp Metabolic Enf335 K 4.0 mEq/L 06/15/2015 Comp Metabolic Wpu660 CL 103 mEq/L 06/15/2015 Comp Metabolic Byv448 CO2 28.0 mEq/L 06/15/2015 Comp Metabolic Qjw564 ANION GAP 12 06/15/2015 Comp Metabolic Jyd829 GLUCOSE 79 mg/dL 06/15/2015 Comp Metabolic Vis844 Creat 1.0 mg/dL 06/15/2015 Comp Metabolic Xmj939 eGFR 74 ml/min/1.73m2 06/15/2015 Comp Metabolic Dwn525 BUN 15 mg/dL 06/15/2015 Comp Metabolic Gsd968 B/C Ratio 14.4 Ratio 06/15/2015 Comp Metabolic Ebc375 CALCIUM 9.1 mg/dL 06/15/2015 Comp Metabolic Ria492 ALK PHOS 30 U/L 06/15/2015 Comp Metabolic Zmo091 AST(SGOT) 20 U/L 06/15/2015 Comp Metabolic Bco515 ALT(SGPT) 15 U/L 06/15/2015 Comp Metabolic Svp887 BILI T 1.0 mg/dL 06/15/2015 Comp Metabolic Gfl598 ALBUMIN 4.0 g/dL 06/15/2015 Comp Metabolic Esi424 TPRO 6.7 g/dL 06/15/2015 Comp Metabolic Xak937 GLOB 2.7 g/dL 06/15/2015 Comp Metabolic Dih643 A/G Ratio 1.5 Ratio 06/15/2015 Comp Metabolic Ktb205 Osmo 277 mOsmo 06/15/2015 Lipid Ord30 CHOL [...] 33.8 % 06/15/2015 Cbc With Differential Ord2 Humphreys% 14.5 % 06/15/2015 Cbc With Differential Ord2 MCH 30.0 pg 06/15/2015 Cbc With Differential Ord2 Eos% 4.8 % 06/15/2015 Cbc With Differential Ord2 MCHC 33.8 pg 06/15/2015 Cbc With Differential Ord2 PLT 154 K/ul 06/15/2015 Cbc With Differential Ord2 Baso% 1.0 % 06/15/2015 Cbc With Differential Ord2 RDW 13.8 % 06/15/2015 Cbc With Differential Ord2 Neut ABS# 1.80 K/ul 06/15/2015 Cbc With Differential Ord2 Lymph ABS# 1.33 K/ul 06/15/2015 Cbc With Differential Ord2 Humphreys ABS# 0.6 K/ul 06/15/2015 Cbc With Differential Ord2 Eos ABS# 0.2 K/ul 06/15/2015 Cbc With Differential Ord2 Baso ABS# 0.0 K/ul 06/15/2015 Cbc With Differential Ord2 New Analyzer Notice Please note new ref ranges starting 03-16-2015 due to implemntation of new five part differential hematolgy analyzer. 06/15/2015 Tsh Ord6 hTSH II 2.01 uIU/mL 06/15/2015 VIT D TOTL 6400219 VIT D TOTL 57 NG/ML 12/14/2013 LIPID GRP HDL TEST 56 MG/DL 12/14/2013 LIPID GRP TRIG 56 MG/DL 12/14/2013 LIPID GRP TEST LDL 138 MG/DL 12/14/2013 LIPID GRP CHOL 205 MG/DL 12/14/2013 LIPID GRP RCHOL/HDL 3.66 RATIO 12/14/2013 LIPID GRP NON-HDL CH 149 MG/DL 12/14/2013 TSH 3509629 TSH 2.444 uIU/ML 12/14/2013 GFR CALC 6194616 GFR AA >60 ML/MIN 12/14/2013 GFR CALC 0138531 GFR NON-AA >60 ML/MIN 12/14/2013 CBC 3836341 WBC 4.1 10e9/L 12/14/2013 CBC 9300250 RBC 4.90 10e12/L 12/14/2013 CBC 7891448 HGB 14.6 g/dL 12/14/2013 CBC 6847960 HCT DET 42.2 % 12/14/2013 CBC 9598518 MCV 86.1 fL 12/14/2013 CBC 8356675 MCH 29.8 pg 12/14/2013 CBC 5930785 MCHC 34.6 g/dL 12/14/2013 CBC 4784145 PLT 166 10e9/L 12/14/2013 CBC 7655963 MPV 9.0 fL 12/14/2013 CBC 4841940 LAUREL % 52.6 % 12/14/2013 CBC 8626081 LY % 31.6 % 12/14/2013 CBC 7966847 MON % 11.9 % 12/14/2013 CBC 5250106 EOS % 3.2 % 12/14/2013 CBC 7203128 BASO % 0.7 % 12/14/2013 CBC 1684832 RDW 13.6 % 12/14/2013 CBC 6612513 ABS LAUREL 2.16 10e9/L 12/14/2013 CBC 3272937 ABS LYMPH 1.30 10e9/L 12/14/2013 CBC 5179814 ABS MONO 0.49 10e9/L 12/14/2013 CBC 9042881 ABS EOS 0.13 10e9/L 12/14/2013 CBC 7020169 ABS BASO 0.03 10e9/L 12/14/2013 CBC 8084892 RDW-SD 41.7 fL 12/14/2013 CHEM 14 7755197 AST 18 U/L 12/14/2013 CHEM 14 4451069 ALT 14 IU/L 12/14/2013 CHEM 14 8720763 BUN 19 MG/DL 12/14/2013 CHEM 14 2443425 ALBUMIN 4.2 GM/DL 12/14/2013 CHEM 14 8994240 CHLORIDE 106 MMOL/L 12/14/2013 CHEM 14 3439413 BILI TOT 0.9 MG/DL 12/14/2013 CHEM 14 1256491 ALK PHOS 30 U/L 12/14/2013 CHEM 14 5581185 SODIUM 140 MMOL/L 12/14/2013 CHEM 14 4787713 CREATININE 1.10 MG/DL 12/14/2013 CHEM 14 8658189 CALCIUM 9.4 MG/DL 12/14/2013 CHEM 14 3166808 POTASSIUM 4.1 MMOL/L 12/14/2013 CHEM 14 8531062 PROT TOT 6.9 GM/DL 12/14/2013 CHEM 14 2689671 GLUCOSE 91 MG/DL 12/14/2013 CHEM 14 8009531 BICARB 30 MMOL/L 12/14/2013 CHEM 14 5432256 ANION GAP 4 MEQ/L 12/14/2013 CHEM 14 8184084 AST 20 U/L 12/22/2012 CHEM 14 3257381 ALT 18 IU/L 12/22/2012 CHEM 14 6428373 BUN 20 MG/DL 12/22/2012 CHEM 14 2284337 ALBUMIN 4.1 GM/DL 12/22/2012 CHEM 14 4700441 CHLORIDE 105 MMOL/L 12/22/2012 CHEM 14 9765851 BILI TOT 1.1 MG/DL 12/22/2012 CHEM 14 7640203 ALK PHOS 31 U/L 12/22/2012 CHEM 14 9505691 SODIUM 138 MMOL/L 12/22/2012 CHEM 14 8473063 CREATININE 1.07 MG/DL 12/22/2012 CHEM 14 3138511 CALCIUM 9.3 MG/DL 12/22/2012 CHEM 14 6266982 POTASSIUM 4.2 MMOL/L 12/22/2012 CHEM 14 9787441 PROT TOT 6.9 GM/DL 12/22/2012 CHEM 14 0969962 GLUCOSE 86 MG/DL 12/22/2012 CHEM 14 6732923 BICARB 30 MMOL/L 12/22/2012 CHEM 14 9623440 ANION GAP 3 MEQ/L 12/22/2012 TSH 8337248 TSH 1.886 uIU/ML 12/22/2012 GFR CALC 3665327 GFR AA >60 ML/MIN 12/22/2012 GFR CALC 8046317 GFR NON-AA >60 ML/MIN 12/22/2012 CBC 5249569 WBC 4.1 10e9/L 12/22/2012 CBC 0116623 RBC 4.67 10e12/L 12/22/2012 CBC 5110572 HGB 14.1 g/dL 12/22/2012 CBC 3604480 HCT DET 40.6 % 12/22/2012 CBC 5634383 MCV 86.9 fL 12/22/2012 CBC 7908335 MCH 30.2 pg 12/22/2012 CBC 6817179 MCHC 34.7 g/dL 12/22/2012 CBC 0111281 PLT 170 10e9/L 12/22/2012 CBC 5931736 MPV 9.1 fL 12/22/2012 CBC 3596855 LAUREL % 49.2 % 12/22/2012 CBC 1987295 LY % 34.8 % 12/22/2012 CBC 7683754 MON % 12.1 % 12/22/2012 CBC 4161341 EOS % 3.4 % 12/22/2012 CBC 5952430 BASO % 0.5 % 12/22/2012 CBC 1371250 RDW 13.8 % 12/22/2012 CBC 9214575 ABS LAUREL 2.02 10e9/L 12/22/2012 CBC 0592037 ABS LYMPH 1.43 10e9/L 12/22/2012 CBC 1115847 ABS MONO 0.50 10e9/L 12/22/2012 CBC 1500713 ABS EOS 0.14 10e9/L 12/22/2012 CBC 3276427 ABS BASO 0.02 10e9/L 12/22/2012 CBC 2509610 RDW-SD 43.0 fL 12/22/2012 LIPID GRP HDL TEST 48 MG/DL 12/22/2012 LIPID GRP TRIG 60 MG/DL 12/22/2012 LIPID GRP TEST LDL 121 MG/DL 12/22/2012 LIPID GRP CHOL 181 MG/DL 12/22/2012 LIPID GRP RCHOL/HDL 3.77 RATIO 12/22/2012 LIPID GRP HDL TEST 52 MG/DL 09/25/2011 LIPID GRP TRIG 48 MG/DL 09/25/2011 LIPID GRP TEST LDL 128 MG/DL 09/25/2011 LIPID GRP CHOL 190 MG/DL 09/25/2011 LIPID GRP RCHOL/HDL 3.65 RATIO 09/25/2011 TSH 4159872 TSH 1.923 uIU/ML 09/25/2011 GFR CALC 9905615 GFR AA >60 ML/MIN 09/25/2011 GFR CALC 1739620 GFR NON-AA >60 ML/MIN 09/25/2011 CBC 4016332 WBC 4.1 10e9/L 09/25/2011 CBC 0485075 RBC 4.71 10e12/L 09/25/2011 CBC 9889758 HGB 14.0 g/dL 09/25/2011 CBC 2071610 HCT DET 40.3 % 09/25/2011 CBC 7843828 MCV 85.6 fL 09/25/2011 CBC 2167512 MCH 29.7 pg 09/25/2011 CBC 1419992 MCHC 34.7 g/dL 09/25/2011 CBC 4571382 PLT 148 10e9/L 09/25/2011 CBC 6979642 MPV 9.1 fL 09/25/2011 CBC 5284553 LAUREL % 48.6 % 09/25/2011 CBC 4138804 LY % 36.6 % 09/25/2011 CBC 0166287 MON % 11.2 % 09/25/2011 CBC 3605983 EOS % 3.4 % 09/25/2011 CBC 1338463 BASO % 0.2 % 09/25/2011 CBC 6335955 RDW 13.2 % 09/25/2011 CBC 0829085 ABS LAUREL 1.99 10e9/L 09/25/2011 CBC 5629749 ABS LYMPH 1.50 10e9/L 09/25/2011 CBC 2083901 ABS MONO 0.46 10e9/L 09/25/2011 CBC 6878567 ABS EOS 0.14 10e9/L 09/25/2011 CBC 3487547 ABS BASO 0.01 10e9/L 09/25/2011 CBC 4606282 RDW-SD 40.9 fL 09/25/2011 CHEM 14 20270906 AST 16 U/L 09/25/2011 CHEM 14 20270906 ALT 12 IU/L 09/25/2011 CHEM 14 6085293 BUN 28 MG/DL 09/25/2011 CHEM 14 0264122 ALBUMIN 4.2 GM/DL 09/25/2011 CHEM 14 0809692 CHLORIDE 105 MMOL/L 09/25/2011 CHEM 14 9419946 BILI TOT 0.9 MG/DL 09/25/2011 CHEM 14 5237400 ALK PHOS 35 U/L 09/25/2011 CHEM 14 0137448 SODIUM 138 MMOL/L 09/25/2011 CHEM 14 9023526 CREATININE 1.02 MG/DL 09/25/2011 CHEM 14 3954426 CALCIUM 9.2 MG/DL 09/25/2011 CHEM 14 3507165 POTASSIUM 4.1 MMOL/L 09/25/2011 CHEM 14 7919640 PROT TOT 6.7 GM/DL 09/25/2011 CHEM 14 9556155 GLUCOSE 85 MG/DL 09/25/2011 CHEM 14 2051535 BICARB 29 MMOL/L 09/25/2011 CHEM 14 3217667 ANION GAP 4 MEQ/L 09/25/2011 Review of Systems System Result Effective [...] tenderness 12/03/2013 None Full Exam - General 1995 Abdomen abdominal exam Overall: normal bowel sounds 12/03/2013 None Full Exam - General 1994 Musculoskeletal digits and nails Digits: a normal exam 12/03/2013 None Full Exam - General 1995 Musculoskeletal [...] happy 11/24/2012 None Full Exam - General 1995 Eyes conjunctiva /eyelids Overall: eyelids normal 11/24/2012 [...] benign 11/24/2012 None Full Exam - General 1995 Neurologic deep tendon reflexes Overall: deep tendon [...] 10/02/2011 dry, rough, scaly lesion to left cheondoism, right cheondoism, bridge of left nose x 2-removed using [...] -4: G0439 01/23/2016 DESTRUCT PREMALG LESION CPT-4: 21003 10/02/2011 DESTRUCT PREMALG LES 2-14 CPT-4: 73925 10/02/2011 Vital Signs Date Vital 10/21/2017 Blood Pressure 1: 142/82 Code : 8480-6 Heart Rate 1: 59 bpm Height: 5'9" SpO2: 98% Weight: 10/18/2017 Blood Pressure 1: 146/78 Code : 8480-6 BMI: 27.2 Code : 45388-4 Heart Rate 1 : 65 bpm Height: 5'9" SpO2: 96% Weight: 184 lbs 09/10/2017 Blood Pressure 1: 122/80 Code : 8480-6 BMI: 27.2 Code : 07435-9 Heart Rate 1 : 68 bpm Height: 5'9" SpO2: 96% Weight: 184 lbs 5 oz 03/14/2017 Blood Pressure 1: 128/80 Code : 8480-6 BMI: 28.1 Code : 27508-1 Heart Rate 1 : 63 bpm Height: 5'9" SpO2: 99% Weight: 190 lbs 09/11/2016 Blood Pressure 1: 120/70 Code : 8480-6 BMI: 28.2 Code : 94830-3 Heart Rate 1 : 56 bpm Height: 5'9" SpO2: 97% Weight: 191 lbs 03/07/2016 Blood Pressure 1: 124/66 Code : 8480-6 BMI: 27.3 Code : 51598-7 Heart Rate 1 : 64 bpm Height: 5'9" SpO2: 98% Weight: 185 lbs 01/23/2016 Blood Pressure 1: 140/66 Code : 8480-6 BMI: 27.2 Code : 71955-7 Heart Rate 1 : 55 bpm Height: 5'9" SpO2: 98% Waist Measure (cm): 86 cm Weight: 184 lbs 11/09/2015 Blood Pressure 1: 132/80 Code : 8480-6 BMI: 26.9 Code : 37530-9 Heart Rate 1 : 60 bpm Height: 5'9" SpO2: 98% Weight: 182 lbs 08/09/2015 Blood Pressure 1: 122/72 Code : 8480-6 BMI: 27.0 Code : 08496-6 Heart Rate 1 : 61 bpm Height: 5'9" SpO2: 98% Weight: 182 lbs 8 oz 07/04/2015 Blood Pressure 1: 132/80 Code : 8480-6 BMI: 27.0 Code : 37832-7 Heart Rate 1 : 52 bpm Height: 5'9" SpO2: 98% Weight: 183 lbs 06/30/2015 Blood Pressure 1: 162/88 Code : 8480-6 Heart Rate 1: 58 bpm 06/14/2015 Blood Pressure 1: 170/96 Code : 8480-6 BMI: 27.3 Code : 55280-9 Heart Rate 1 : 55 bpm Height: 5'9" SpO2: 98% Weight: 185 lbs 03/14/2015 Blood Pressure 1: 136/82 Code : 8480-6 Blood Pressure 1: 152/80 Code: 8480-6 BMI: 27.5 Code: 85201-9 Heart Rate 1: 56 bpm Height: 5'9" SpO2: 98% Weight: 186 lbs 12/13/2014 Blood Pressure 1: 138/80 Code : 8480-6 BMI: 27.0 Code : 77543-8 Heart Rate 1 : 70 bpm Height: 5'9" Weight: 183 lbs 11/16/2014 Blood Pressure 1: 130/70 Code : 8480-6 Heart Rate 1: 64 bpm Height: Weight: 09/09/2014 Blood Pressure 1: 140/90 Code : 8480-6 BMI: 26.3 Code : 42193-3 Heart Rate 1 : 78 bpm Height: 5'9" Weight: 178 lbs 08/25/2014 Blood Pressure 1: 160/90 Code : 8480-6 BMI: 26.3 Code : 76165-7 Heart Rate 1 : 79 bpm Height: 5'9" SpO2: 97% Weight: 178 lbs 06/10/2014 Blood Pressure 1: 142/88 Code : 8480-6 BMI: 26.7 Code : 81221-6 Heart Rate 1 : 63 bpm Height: 5'9" SpO2: 97% Weight: 181 lbs 12/03/2013 Blood Pressure 1: 138/78 Code : 8480-6 BMI: 26.0 Code : 00111-4 Heart Rate 1 : 68 bpm Height: 5'9" SpO2: 98% Weight: 176 lbs 05/25/2013 Blood Pressure 1: 152/84 Code : 8480-6 Blood Pressure 2: 138/86 Code: 8480-6 BMI: 26.1 Code: 74149-4 Heart Rate 1: 80 bpm Height: 5'9" Weight: 177 lbs 11/24/2012 Blood Pressure 1: 124/68 Code : 8480-6 BMI: 25.4 Code : 96867-6 Heart Rate 1 : 80 bpm Height: 5'9" Weight: 172 lbs 05/26/2012 Blood Pressure 1: 120/58 Code : 8480-6 BMI: 26.1 Code : 05142-3 Heart Rate 1 : 72 bpm Height: 5'9" Respiratory Rate: 16 bpm Weight: 177 lbs 11/27/2011 Blood Pressure 1: 116/68 Code : 8480-6 BMI: 25.5 Code : 52211-7 Heart Rate 1 : 60 bpm Height: 5'9" Respiratory Rate: 16 bpm Weight: 172 lbs 8 oz 10/02/2011 Blood Pressure 1: 134/74 Code : 8480-6 Heart Rate 1: 60 bpm 09/20/2011 Blood Pressure 1: 116/60 Code : 8480-6 BMI: 25.1 Code : 98784-6 Heart Rate 1 : 80 bpm Height: [...] servings of vegetables / fruit per day: 01/23/2016 None Annual Medicare Wellness Exam Smoking [...] data Encounters Encounter Performer Location Codes Date ([id number]) [id number] EST. PATIENT, LEVEL III Diagnosis: Muscle spasm of back[ICD10: M62.830] Diagnosis: Essential (primary) hypertension[ICD10: I10] Bernadette Chau MD, [facility] CPT-4: 87670 10/21/2017 ([id number] EST. PATIENT, LEVEL III Diagnosis: Gastro-esophageal reflux disease without esophagitis[ICD10: K21.9] Diagnosis: Cervicalgia[ICD10: M54.2] Michelle Chau MD, [facility] CPT-4: 21408 10/18/2017 ([id number]) 08957 EST. PATIENT, LEVEL IV Diagnosis: Essential (primary) hypertension[ICD10: I10] Diagnosis: Essential tremor[ICD10: G25.0] Bernadette Chau MD, [facility] CPT- 4: 07082 09/10/2017 ([id number]) 42030 EST. PATIENT, LEVEL IV Diagnosis: Essential (primary) hypertension[ICD10: I10] Diagnosis: Essential tremor[ICD10: G25.0] Bernadette Chau MD, [facility] CPT- 4: 10105 03/14/2017 ([id number]) 38497 EST. PATIENT, LEVEL IV Diagnosis: Essential (primary) hypertension[ICD10: I10] Diagnosis: Essential tremor[ICD10: G25.0] Bernadette Chau MD, [facility] CPT- 4: 28640 09/11/2016 ([id number]) 20860 EST. PATIENT, LEVEL IV Diagnosis: Essential (primary) hypertension[ICD10: I10] Diagnosis: Essential tremor[ICD10: G25.0] Bernadette Chau MD, [facility] CPT- 4: 50354 03/07/2016 ([id number]) 09092 EST. PATIENT, LEVEL III Diagnosis: Essential (primary) hypertension[ICD10: I10] Diagnosis: Essential tremor[ICD10: G25.0] Bernadette Chau MD [facility] CPT- 4: 73414 11/09/2015 ([id number]) 66989 EST. PATIENT, LEVEL III Diagnosis: Essential (primary) hypertension[ICD10: I10] CRISTIANO Cowan MD CPT-4: 05001 08/09/2015 ([id number]) 17134 EST. PATIENT, LEVEL III Diagnosis: Essential (primary) hypertension[ICD10: I10] Bernadette Chau MD [facility] CPT-4: 93978 07/04/2015 ([id number]) Miscellaneous no charge Diagnosis: Essential (primary) hypertension[ICD10: I10] Bernadette Chau MD [facility] CPT-4: 46891 06/30/2015 ([id number]) 54233 EST. PATIENT, LEVEL IV Diagnosis: Essential (primary) hypertension[ICD10: I10] Diagnosis: Male erectile disorder[ICD10: F52.21] Diagnosis: Gastro-esophageal reflux disease without esophagitis[ICD10: K21.9] Bernadette Chau MD [facility] CPT-4: 13683 06/14/2015 ([id number]) 17445 EST. PATIENT, LEVEL IV Diagnosis: Essential (primary) hypertension[ICD10: I10] Diagnosis: Low back pain[ICD10: M54.5] Diagnosis: Malignant neoplasm of prostate[ICD10: C61] Bernadette Chau MD [facility] CPT-4: 64899 03/14/2015 ([id number]) 75640 EST. PATIENT, LEVEL III Diagnosis: Essential (primary) hypertension[ICD10: I10] Bernadette Chau MD [facility] CPT-4: 11120 12/13/2014 ([id number]) 07834 EST. PATIENT, LEVEL II Diagnosis: ESSENTIAL HYPERTENSION[ICD9: 401.9] Bernadette Chau MD [facility] CPT-4: 29228 11/16/2014 ([id number]) 66848 EST. PATIENT, LEVEL III Diagnosis: ESSENTIAL HYPERTENSION[ICD9: 401.9] Diagnosis: GENERALIZED ANXIETY DISEASE[ICD9: 300.02] Bernadette Chau MD [facility] CPT-4: 39813 09/09/2014 ([id number]) 79884 EST. PATIENT, LEVEL IV Diagnosis: ESSENTIAL HYPERTENSION[ICD9: 401.9] Diagnosis: GENERALIZED ANXIETY DISEASE[ICD9: 300.02] Bernadette Chau MD [facility] CPT-4: 69510 08/25/2014 ([id number]) 86483 EST. PATIENT, LEVEL IV Diagnosis: ESSENTIAL HYPERTENSION[ICD9: 401.9] Diagnosis: GENERALIZED ANXIETY DISEASE[ICD9: 300.02] Diagnosis: ESOPHAGEAL REFLUX[ICD9: 530.81] Bernadette Chau MD [facility] CPT- 4: 30554 06/10/2014 ([id number]) 06713 EST. PATIENT, LEVEL IV Diagnosis: ESSENTIAL HYPERTENSION[ICD9: 401.9] Diagnosis: ESOPHAGEAL REFLUX[ICD9: 530.81] Bernadette Chau MD [facility] CPT- 4: 25858 12/03/2013 ([id number]) 14399 EST. 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 PATIENT, LEVEL IV Diagnosis: ESSENTIAL HYPERTENSION[SNOMED: 40670710] Diagnosis: Nausea[ICD9: 787.02] Diagnosis: ESOPHAGEAL REFLUX[ICD9: 530.81] Bernadette Chau MD [facility] CPT- 4: 84041 11/24/2012 ([id number]) 83079 EST. 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 PATIENT, LEVEL III Diagnosis: ESSENTIAL HYPERTENSION[SNOMED: 38020581] Bernadette Chau MD [facility] CPT-4: 92574 11/27/2011 ([id number]) OFFICE VISIT, NEW - LEVEL 3 Diagnosis: ESSENTIAL HYPERTENSION[SNOMED: 53692987] Diagnosis: Impotence[ICD9: 607.84] Diagnosis: Osteoarthritis[ICD9: 715.90] [facility] CPT- 4: 29637 09/20/2011 Plan of Care Planned Activity Notes Codes Status Date Appointment: [phone] ([facility] min) Moderate 10/22/2017 Visit Plan: Parkinson's [...] exercises daily. 10/18/2017 Appointment: [phone] (30 min) Complex 10/18/2017 Patient Education: Patient [...] worsen. 09/10/2017 Appointment: [phone] (15 min) Moderate 09/10/2017 Patient Education: Patient [...] care. 03/14/2017 Appointment: [phone] (15 min) Moderate 03/14/2017 Patient Education: Patient [...] this time 09/11/2016 Appointment: [phone] (15 min) Moderate 09/11/2016 Patient Education: Patient [...] monitor symptoms. 03/07/2016 Appointment: Bernadette Chau WPtel: [phone] [facility] (15 min) Moderate 03/07/2016 Patient Education: Patient [...] care surrogate. 01/23/2016 Appointment: Kelly Mancera WPtel: [facility]1 [facility] [facility] - Annual Wellness Visit 01/23/2016 Patient [...] essential tremor. 11/09/2015 Appointment: Bernadette Chau WPtel: [facility]2 [facility] (15 min) Moderate 11/09/2015 Patient Education: Patient [...] home. 08/09/2015 Appointment: [phone] [facility] (15 min) Moderate 08/09/2015 Patient Education: Patient [...] acute concerns. 07/04/2015 Appointment: Bernadette Chau WPtel: [phone] [facility] (15 min) Moderate 07/04/2015 Patient Education: Patient [...] improving. 06/14/2015 Appointment: Bernadette Chau WPtel: [phone] [facility] (30 min) Complex 06/14/2015 Patient Education: Patient [...] and sacrum. 03/14/2015 Appointment: Bernadette Chau WPtel: [facility]5 [facility] (15 min) Moderate 03/14/2015 Patient Education: Patient [...] pt is to call for acute concerns. eduarda of anshu - pt to take the medication at bedtime bring blood pressure machine by the office. increase spironolactone to 50mg daily. 12/13/2014 Appointment: Bernadette Chau WPtel: [facility] (15 min) Moderate 12/13/2014 Patient Education: Patient Medication Summary Completed 12/13/2014 Patient Education: Hypertension Completed 12/13/2014 Appointment: Bernadette Chau WPtel: [facility] Follow up 12/09/2014 Visit Plan: Hypertension - [...] improving. 09/09/2014 Appointment: [phone] (15 min) Moderate 09/09/2014 Patient Education: Patient [...] concerns. 08/25/2014 Appointment: [phone] (10 min) Simple 08/25/2014 Patient Education: Patient [...] cialis. 06/10/2014 Appointment: [phone] Follow up 06/10/2014 Patient Education: Patient Medication [...] home. 12/03/2013 Appointment: [phone] [facility] [place] Follow up 12/03/2013 Patient Education: Patient Medication [...] of cialis 05/25/2013 Appointment: Bernadette Chau WPtel: [facility] [place] Follow up 05/25/2013 Patient Education: Patient Medication [...] not improving. 11/24/2012 Appointment: Bernadette Chau WPtel: [facility]8 [facility] [place] Follow up 11/24/2012 Patient Education: Patient Medication [...] times daily. 05/26/2012 Appointment: Bernadette Chau WPtel: [phone] [facility] Established Patient Preventative visit 05/26/2012 Patient Education: [...] at home. 11/27/2011 Appointment: Bernadette Chau WPtel: [facility]5 [facility] Follow up 11/27/2011 Patient Education: Patient Medication Summary Completed 11/27/2011 Patient Education: High Blood Pressure: Essential Hypertension Completed 2011 Visit Plan: Wound Instructions - Pt was instruced to keep the wound clean, wash with antibacterial soap, use triple antibiotic ointment, call if redness, pustular drainage, or any other acute conerns. 10/02/2011 Appointment: [phone] Surgical Procedure 10/02/2011 Patient Education: Patient Medication [...] for break through pain symptoms. 09/20/2011 Appointment: [facility]ad[phone] [place] New Patient 09/20/2011 Patient Education: Patient Medication Summary Completed 09/20/2011 Patient Education: High Blood Pressure: Essential Hypertension Completed 2011 Instructions Comment . Hypertension - well controlled at home [...] in current medications. Impotence - samples of anshu . Parkinson's Disease - pt has diagnosis [...] at home. Tremor - continue supportive care. increase the buspirone to 1 pill in [...] Use tylenol for break through pain symptoms. . Hypertension - uncontrolled - the patient's [...] if the symptoms are not improving. . Medicare Exam - today we discussed [...] [employer]OP[employer] paperwork for health care surrogate. . Wound Instructions - Pt was instruced to keep the wound clean, wash with antibacterial soap, use triple antibiotic ointment, call if redness, pustular drainage, or any other acute conerns. samples of cialis - pt to take [...] spironolactone to 50mg daily. . Hypertension - well controlled - continue with current medications, continue with no added salt diet. Pt has been encouraged to exercise daily. The pt has been advised to call the office if there are any acute concerns about change in blood pressure readings at home. Tremor - benign - essential tremor. . Hypertension - well controlled - continue [...] care, no medication needed at this time change the lisionpril to 1/2 pill one [...] to alert this office if symptoms worsen. continue with lisinopril 20mg twice daily (split [...] change in blood pressure readings at home. STOP ALEVE DEXILANT 60MG DAILY FOR ACID [...] - essential - benign - monitor symptoms. . Hypertension - well controlled - continue [...] medications. Impotence - stable symptoms on cialis. NEXIUM 40MG DAILY.. Hypertension - well controlled [...] if the symptoms are not improving. . Medicare Exam - today we discussed [...] her DOPA paperwork for health care surrogate. Declined Procedure: ([id number]) FLU VACC 4 WILVER 3 YRS PLUS [...]
--- OUTSIDE RECORDS SUMMARY | 2018-01-04 00:39 | XMS REPORT | CCD ---
Author Author Bernadette Chau Organization Bernadette Chau MD, [facility] Address [address] [place] [address] Phone Care Team Providers Care Collection Clerk Name Role Phone PP Unavailable CCM Unavailable Summary Purpose Interface Exchange Insurance Providers Payer name Policy type / Coverage type Covered libertarian ID Effective Begin Date Effective End Date WPS Medicare Part B Medicare Part B [id number] 2017 Unknown [facility] Medicare Part B [id number] Unknown Family history Uncle Diagnosis Age At [...] Unknown Retired 09/20/[address]: 043759607 Nonsmoker smoked for 2-3 years in 20's, used smokeless tobacco for 40 yrs 09/20/[address]: 8993146 Former smoker quit 1965 09/20/2011 Alcohol history [...] Start Date Stop Date Status Fill Instructions Requip 0.25 mg tablet RxNorm: 438783 1 Tablet(s) PO BID 201702/17/2018 Active buspirone 15 mg tablet RxNorm: 853411 Tablet(s) Take 1 pill in the morning, 1/2 pill at 1 or 2pm and 1 pill at bedtime 10/21/2017 No Stop Date Active prednisone 20 mg tablet RxNorm: 045294 3 Tablet(s) PO daily -Prescribed by Dr. Dann Rod on 10/20/17 10/20/20172017 Active Dexilant 60 mg capsule, delayed release RxNorm: 069949 1 Capsule(s) PO daily 10/18/2017 No Stop Date Active tramadol 50 mg tablet RxNorm: 033111 1 Tablet(s) PO TID PRN 10/24/2017 Active hydrochlorothiazide 25 mg tablet RxNorm: 793073 TAKE 1 TABLET BY MOUTH IN THE MORNING 09/30/2017 04/27/2018 Active Generic For:HYDRODIURIL 25 MG TABLET 2017 11:36:14 AM Sinemet 10 mg-100 mg tablet RxNorm: 978576 1 Tablet(s) PO BID morning and early afternoon 09/10/2017 10/20/2017 Inactive potassium chloride ER 10 mEq capsule,extended release RxNorm: 804032 1 Capsule(s) PO TIW 07/22/2017 06/22/2018 Active buspirone 15 mg tablet RxNorm: 866492 Tablet(s) Take 1 pill in the morning, 1/2 pill at 1 or 2pm and 1 pill at bedtime 05/08/2017 09/28/2017 Inactive doxazosin 1 mg tablet RxNorm: 769875 TAKE 1/2 (ONE- HALF) TABLET TWICE DAILY 04/10/2017 11/05/2017 Active Generic For:CARDURA 1MG 04/10/2017 1:06:52 PM carvedilol 12.5 mg tablet RxNorm: 638041 Tablet(s) TAKE 1 TABLET BY MOUTH TWICE DAILY 04/10/2017 11/05/2017 Active hydrochlorothiazide 25 mg tablet RxNorm: 670448 TAKE 1 TABLET BY MOUTH IN THE MORNING 03/05/2017 09/29/2017 Inactive Generic For:HYDRODIURIL 25 MG TABLET 2017 10:38:53 AM buspirone 15 mg tablet RxNorm: 173123 Tablet(s) Take 1 pill in the morning, 1/2 pill at 1 or 2pm and 1 pill at bedtime 12/06/2016 04/28/2017 Inactive doxazosin 1 mg tablet RxNorm: 553148 1/2 Tablet(s) PO BID 201604/09/2017 Inactive lisinopril 40 mg tablet RxNorm: 814664 TAKE 1/2 TABLET BY MOUTH TWICE DAILY 09/18/2016 09/12/2017 Inactive Generic For:ZESTRIL 40MG 09/18/2016 9:08:05 AM carvedilol 12.5 mg tablet RxNorm: 727994 Tablet(s) TAKE 1 TABLET BY MOUTH TWICE DAILY 09/14/2016 04/09/2017 Inactive potassium chloride ER 10 mEq capsule,extended release RxNorm: 221653 1 Capsule(s) PO TIW 08/14/2016 07/15/2017 Inactive hydrochlorothiazide 25 mg tablet RxNorm: 396816 TAKE 1 TABLET BY MOUTH IN THE MORNING 08/06/2016 03/03/2017 Inactive Generic For:HYDRODIURIL 25 MG TABLET 2016 9:47:38 AM doxazosin 1 mg tablet RxNorm: 500709 1/2 Tablet(s) PO BID 201611/11/2016 Inactive fexofenadine 180 mg tablet RxNorm: 455378 1 Tablet(s) PO daily 04/05/2016 10/01/2016 Inactive fexofenadine 180 mg tablet RxNorm: 136199 1 Tablet(s) PO daily 04/05/2016 04/04/2016 Inactive buspirone 15 mg tablet RxNorm: 746196 Tablet(s) Tablet(s) take 1 pill in the morning, 1/2 pill at 1 or 2pm and 1 pill at bedtime 201609/07/2016 Inactive Generic For:BUSPAR 15MG 08/19/2014 9:29:55 AM carvedilol 12.5 mg tablet RxNorm: 231927 Tablet(s) TAKE 1 TABLET BY MOUTH TWICE DAILY 02/14/2016 09/10/2016 Inactive potassium chloride ER 10 mEq capsule,extended release RxNorm: 005970 1 Capsule(s) PO TIW 02/08/2016 08/13/2016 Inactive hydrochlorothiazide 25 mg tablet RxNorm: 220521 1 Tablet(s) PO QAM 01/09/2016 08/05/2016 Inactive carvedilol 12.5 mg tablet RxNorm: 110564 TAKE 1 TABLET BY MOUTH TWICE DAILY 10/18/2015 02/13/2016 Inactive Generic For:COREG 12.5MG 10/17/2015 1:04:24 PM lisinopril 40 mg tablet RxNorm: 358004 1/2 Tablet(s) PO BID 08/15/2016 Inactive Generic For:ZESTRIL 20MG 07/21/2014 9:29:18 AM doxazosin 1 mg tablet RxNorm: 404069 1/2 Tablet(s) PO BID 201510/31/2015 Inactive this is FYI for now - and will remain this in the future, does not need a fill right now doxazosin 1 mg tablet RxNorm: 550943 1 Tablet(s) PO BID 201506/29/2015 Inactive doxazosin 1 mg tablet RxNorm: 089251 1 Tablet(s) PO BID 201507/03/2015 Inactive potassium chloride ER 10 mEq capsule,extended release RxNorm: 246705 1 Capsule(s) PO TIW 06/14/2015 01/09/2016 Inactive hydrochlorothiazide 25 mg tablet RxNorm: 867838 1 Tablet(s) PO QAM 06/14/2015 01/08/2016 Inactive buspirone 15 mg tablet RxNorm: 100759 Tablet(s) take 1 pill in the morning, 1/2 pill at 1 or 2pm and 1 pill at bedtime 06/13/2015 12/09/2015 Inactive Generic For: BUSPAR 15MG 08/19/2014 9:29:55 AM carvedilol 12.5 mg tablet RxNorm: 855139 TAKE 1 TABLET BY MOUTH TWICE DAILY 05/20/2015 09/16/2015 Inactive Generic For:COREG 12.5MG 05/20/2015 9:04:34 AM carvedilol 12.5 mg tablet RxNorm: 766150 Tablet(s) 1 Tablet(s) PO BID 05/20/2015 05/19/2015 Inactive carvedilol 12.5 mg tablet RxNorm: 256962 1 Tablet(s) PO BID 05/19/2015 Inactive spironolactone 50 mg tablet RxNorm: 431994 1 Tablet(s) PO QAM 12/13/2014 06/13/2015 Inactive carvedilol 12.5 mg tablet RxNorm: 006029 1 Tablet(s) PO BID 01/11/2015 Inactive spironolactone 25 mg tablet RxNorm: 351916 1 Tablet(s) PO QAM 09/13/2014 12/12/2014 Inactive spironolactone 25 mg tablet RxNorm: 225940 1 Tablet(s) PO QAM 09/13/2014 09/12/2014 Inactive buspirone 15 mg tablet RxNorm: 571706 Tablet(s) take 1 pill in the morning, 1/2 pill at 1 or 2pm and 1 pill at bedtime 09/09/2014 03/07/2015 Inactive Generic For: BUSPAR 15MG 08/19/2014 9:29:55 AM lisinopril 40 mg tablet RxNorm: 679931 1/2 Tablet(s) PO BID 08/19/2015 Inactive Generic For:ZESTRIL 20MG 07/21/2014 9:29:18 AM Coreg 6.25 mg tablet RxNorm: 161698 1 Tablet(s) PO BID 201409/13/2014 Inactive buspirone 15 mg tablet RxNorm: 821826 TAKE 1 TABLET BY MOUTH TWICE DAILY 08/19/2014 09/08/2014 Inactive Generic For:BUSPAR 15MG 08/19/2014 9:29:55 AM lisinopril 20 mg tablet RxNorm: 715287 1 Tablet(s) PO daily TAKE 1 TABLET BY MOUTH ONCE DAILY. 07/21/2014 07/20/2014 Inactive Generic For:*ZESTRIL 20MG Generic For:*ZESTRIL 20MG 07/29/2013 11:19:45 AM lisinopril 20 mg tablet RxNorm: 630412 TAKE 1 TABLET BY MOUTH ONCE DAILY. 07/21/2014 08/24/2014 Inactive Generic For:ZESTRIL 20MG 07/21/2014 9:29:18 AM buspirone 15 mg tablet RxNorm: 227826 1 Tablet(s) BID 1 Tablet(s) PO BID 06/21/2014 08/18/2014 Inactive Tamiflu 75 mg capsule RxNorm: 298585 1 Capsule(s) PO daily 03/1203/11/2014 Inactive Tamiflu 75 mg capsule RxNorm: 506775 1 Capsule(s) PO daily 03/1203/21/2014 Inactive buspirone 15 mg tablet RxNorm: 274137 1 Tablet(s) BID 1 Tablet(s) PO BID 02/16/2014 06/20/2014 Inactive buspirone 15 mg tablet RxNorm: 672678 1 Tablet(s) PO BID 201302/15/2014 Inactive lisinopril 20 mg tablet RxNorm: 642357 Tablet(s) PO TAKE 1 TABLET BY MOUTH ONCE DAILY. 07/30/2013 07/20/2014 Inactive Generic For:*ZESTRIL 20MG Generic For:* ZESTRIL 20MG 07/29/2013 11:19:45 AM buspirone 15 mg tablet RxNorm: 317001 1 Tablet(s) PO BID 201310/18/2013 Inactive Zithromax 250 mg tablet RxNorm: 382123 Tablet(s) PO 03/18/2013 06/13/2015 Inactive as directed buspirone 15 mg tablet RxNorm: 211414 Tablet(s) PO TAKE 1 TABLET AT BEDTIME AND TAKE 1/2 A TABLET TWICE A DAY 12/22/2012 05/24/2013 Inactive buspirone 15 mg tablet RxNorm: 671734 1 at hs 1/2 bid Tablet(s) PO daily 11/27/2012 10/20/2017 Inactive buspirone 15 mg tablet RxNorm: 025786 Tablet(s) PO daily 201211/26/2012 Inactive 1 q hs and 1/2 daily buspirone 15 mg tablet RxNorm: 241101 Tablet(s) PO daily 2012 No Stop Date Active 1 q hs and 1/2 daily buspirone 15 mg tablet RxNorm: 912261 Tablet(s) PO daily 201210/26/2012 Inactive 1 q hs and 1/2 daily lisinopril 20 mg tablet RxNorm: 566482 Tablet(s) PO TAKE 1 TABLET BY MOUTH ONCE DAILY. 08/05/2012 07/29/2013 Inactive lisinopril 20 mg tablet RxNorm: 547755 Tablet(s) PO TAKE 1 TABLET BY MOUTH ONCE DAILY. 07/07/2012 08/04/2012 Inactive lisinopril 20 mg tablet RxNorm: 472100 Tablet(s) PO 01/07/2012 07/06/2012 Inactive TAKE 1 TABLET BY MOUTH ONCE DAILY. lisinopril 20 mg tablet RxNorm: 933642 Tablet(s) PO 12/10/2011 01/06/2012 Inactive TAKE 1 TABLET BY MOUTH ONCE DAILY. lisinopril 20 mg tablet RxNorm: 412764 1 Tablet(s) PO daily 01/201212/09/2011 Inactive can have #90 if prefers lisinopril 20 mg tablet RxNorm: 216477 1 Tablet(s) PO daily 01/201211/12/2011 Inactive can have #90 if prefers buspirone 15 mg tablet RxNorm: 112218 Tablet(s) PO daily 201110/26/2012 Inactive 1 q hs and 1/2 daily Calcium 600 + D(3) oral RxNorm: 992620 oral No Start Date Active Percocet 5 mg-325 mg tablet RxNorm: 8443891 1 Tablet(s) PO Q6 as needed breakthrough pain- Prescribed by Dr. Lebron on 10/20/17 No Start Date Active Fish Oil Concentrate Oral RxNorm: Oral No Start Date Active diazepam 5 mg tablet RxNorm: 345797 1 Tablet(s) PO Q6 as needed muscle spasms - Prescribed by Dr. Dann Rod on 10/20/17 No Start Date Active Centrum Silver Oral RxNorm: Oral No Start Date Active Zithromax 250 mg tablet RxNorm: 587138 Tablet(s) PO No Start Date 03/17/2013 Inactive as directed lisinopril 20 mg tablet RxNorm: 090182 1 Tablet(s) PO daily No Start Date 11/16/2014 Inactive buspirone 15 mg tablet RxNorm: 154471 1 Tablet(s) PO daily No Start Date 09/24/2011 Inactive B Complex 1 Oral RxNorm: Oral No Start Date 06/13/2015 Inactive lisinopril 20 mg tablet RxNorm: 651023 1 Tablet(s) PO daily No Start Date [...] 88.8 fl 03/08/2016 Cbc With Differential Ord2 [place]% 10.8 % 03/08/2016 Cbc With Differential Ord2 [...] 1.66 K/ul 03/08/2016 Cbc With Differential Ord2 [place] ABS# 0.5 K/ul 03/08/2016 Cbc With Differential Ord2 Eos ABS# 0.1 K/ul 03/08/2016 Cbc With Differential Ord2 Baso ABS# 0.1 K/ul 03/08/2016 Comp Metabolic Gde889 NA 137 mEq/L 03/08/2016 Comp Metabolic Ykw291 K 3.8 mEq/L 03/08/2016 Comp Metabolic Hfz031 CL 100 mEq/L 03/08/2016 Comp Metabolic Rll586 CO2 32.0 mEq/L 03/08/2016 Comp Metabolic Wzm329 ANION GAP 9 03/08/2016 Comp Metabolic Xer123 GLUCOSE 88 mg/dL 03/08/2016 Comp Metabolic Qua394 Creat 1.1 mg/dL 03/08/2016 Comp Metabolic Gsa342 eGFR 67 ml/min/1.73m2 03/08/2016 Comp Metabolic Owi187 BUN 17 mg/dL 03/08/2016 Comp Metabolic Jwh042 B/C Ratio 15.0 Ratio 03/08/2016 Comp Metabolic Kzk963 CALCIUM 9.2 mg/dL 03/08/2016 Comp Metabolic Ugo132 ALK PHOS 43 U/L 03/08/2016 Comp Metabolic Zhp628 AST(SGOT) 19 U/L 03/08/2016 Comp Metabolic Cru731 ALT(SGPT) 17 U/L 03/08/2016 Comp Metabolic Eae182 BILI T 1.1 mg/dL 03/08/2016 Comp Metabolic Tjf571 ALBUMIN 4.2 g/dL 03/08/2016 Comp Metabolic Rwn329 TPRO 7.1 g/dL 03/08/2016 Comp Metabolic Gto029 GLOB 2.9 g/dL 03/08/2016 Comp Metabolic Wcn166 A/G Ratio 1.5 Ratio 03/08/2016 Comp Metabolic Yaf320 Osmo 275 mOsmo 03/08/2016 Tsh Ord6 hTSH II 2.21 uIU/mL 03/08/2016 Comp Metabolic Fvd642 NA 139 mEq/L 06/15/2015 Comp Metabolic Iue960 K 4.0 mEq/L 06/15/2015 Comp Metabolic Bra778 CL 103 mEq/L 06/15/2015 Comp Metabolic Rng414 CO2 28.0 mEq/L 06/15/2015 Comp Metabolic Cpv827 ANION GAP 12 06/15/2015 Comp Metabolic Fqo511 GLUCOSE 79 mg/dL 06/15/2015 Comp Metabolic Ngu240 Creat 1.0 mg/dL 06/15/2015 Comp Metabolic Sns427 eGFR 74 ml/min/1.73m2 06/15/2015 Comp Metabolic Jle707 BUN 15 mg/dL 06/15/2015 Comp Metabolic Pce867 B/C Ratio 14.4 Ratio 06/15/2015 Comp Metabolic Tqo171 CALCIUM 9.1 mg/dL 06/15/2015 Comp Metabolic Ksl124 ALK PHOS 30 U/L 06/15/2015 Comp Metabolic Rup230 AST(SGOT) 20 U/L 06/15/2015 Comp Metabolic Wjd556 ALT(SGPT) 15 U/L 06/15/2015 Comp Metabolic Pyf948 BILI T 1.0 mg/dL 06/15/2015 Comp Metabolic Stj522 ALBUMIN 4.0 g/dL 06/15/2015 Comp Metabolic Qzy678 TPRO 6.7 g/dL 06/15/2015 Comp Metabolic Kgz420 GLOB 2.7 g/dL 06/15/2015 Comp Metabolic Rxk687 A/G Ratio 1.5 Ratio 06/15/2015 Comp Metabolic Jcp793 Osmo 277 mOsmo 06/15/2015 Lipid Ord30 CHOL [...] 45.9 % 06/15/2015 Cbc With Differential Ord2 Lymph% 33.8 % 06/15/2015 Cbc With Differential Ord2 MCV 88.7 fl 06/15/2015 Cbc With Differential Ord2 [place]% 14.5 % 06/15/2015 Cbc With Differential Ord2 [...] 1.33 K/ul 06/15/2015 Cbc With Differential Ord2 [place] ABS# 0.6 K/ul 06/15/2015 Cbc With Differential Ord2 Eos ABS# 0.2 K/ul 06/15/2015 Cbc With Differential Ord2 Baso ABS# 0.0 K/ul 06/15/2015 Cbc With Differential Ord2 New Analyzer Notice Please note new ref ranges starting 03-16-2015 due to implemntation of new five part differential hematolgy analyzer. 06/15/2015 Tsh Ord6 hTSH II 2.01 uIU/mL 06/15/2015 VIT D TOTL 1718496 VIT D TOTL 57 NG/ML 12/14/2013 CHEM 14 6021292 AST 18 U/L 12/14/2013 CHEM 14 3078938 ALT 14 IU/L 12/14/2013 CHEM 14 8152187 BUN 19 MG/DL 12/14/2013 CHEM 14 9176076 ALBUMIN 4.2 GM/DL 12/14/2013 CHEM 14 5891148 CHLORIDE 106 MMOL/L 12/14/2013 CHEM 14 0769398 BILI TOT 0.9 MG/DL 12/14/2013 CHEM 14 6012157 ALK PHOS 30 U/L 12/14/2013 CHEM 14 8145646 SODIUM 140 MMOL/L 12/14/2013 CHEM 14 0327450 CREATININE 1.10 MG/DL 12/14/2013 CHEM 14 4540491 CALCIUM 9.4 MG/DL 12/14/2013 CHEM 14 0942683 POTASSIUM 4.1 MMOL/L 12/14/2013 CHEM 14 8958125 PROT TOT 6.9 GM/DL 12/14/2013 CHEM 14 9778416 GLUCOSE 91 MG/DL 12/14/2013 CHEM 14 5483280 BICARB 30 MMOL/L 12/14/2013 CHEM 14 3478568 ANION GAP 4 MEQ/L 12/14/2013 LIPID GRP HDL TEST 56 MG/DL 12/14/2013 LIPID GRP TRIG 56 MG/DL 12/14/2013 LIPID GRP 3756913 TEST LDL 138 MG/DL 12/14/2013 LIPID GRP 4582534 CHOL 205 MG/DL 12/14/2013 LIPID GRP RCHOL/HDL 3.66 RATIO 12/14/2013 LIPID GRP NON-HDL CH 149 MG/DL 12/14/2013 CBC 7090068 WBC 4.1 10e9/L 12/14/2013 CBC 8756752 RBC 4.90 10e12/L 12/14/2013 CBC 7671714 HGB 14.6 g/dL 12/14/2013 CBC 4402472 HCT DET 42.2 % 12/14/2013 CBC 5327174 MCV 86.1 fL 12/14/2013 CBC 4581846 MCH 29.8 pg 12/14/2013 CBC 3669433 MCHC 34.6 g/dL 12/14/2013 CBC 5147374 PLT 166 10e9/L 12/14/2013 CBC 5827576 MPV 9.0 fL 12/14/2013 CBC 1449336 LAUREL % 52.6 % 12/14/2013 CBC 4931852 LY % 31.6 % 12/14/2013 CBC 9264724 MON % 11.9 % 12/14/2013 CBC 8949483 EOS % 3.2 % 12/14/2013 CBC 6691177 BASO % 0.7 % 12/14/2013 CBC 7726358 RDW 13.6 % 12/14/2013 CBC 3129056 ABS LAUREL 2.16 10e9/L 12/14/2013 CBC 0459315 ABS LYMPH 1.30 10e9/L 12/14/2013 CBC 8691869 ABS MONO 0.49 10e9/L 12/14/2013 CBC 3864053 ABS EOS 0.13 10e9/L 12/14/2013 CBC 4106553 ABS BASO 0.03 10e9/L 12/14/2013 CBC 3422502 RDW-SD 41.7 fL 12/14/2013 GFR CALC 5019252 GFR AA >60 ML/MIN 12/14/2013 GFR CALC 7104686 GFR NON-AA >60 ML/MIN 12/14/2013 TSH 6201198 TSH 2.444 uIU/ML 12/14/2013 CHEM 14 0973049 AST 20 U/L 12/22/2012 CHEM 14 4211565 ALT 18 IU/L 12/22/2012 CHEM 14 8520868 BUN 20 MG/DL 12/22/2012 CHEM 14 9510457 ALBUMIN 4.1 GM/DL 12/22/2012 CHEM 14 4055191 CHLORIDE 105 MMOL/L 12/22/2012 CHEM 14 3320850 BILI TOT 1.1 MG/DL 12/22/2012 CHEM 14 0558348 ALK PHOS 31 U/L 12/22/2012 CHEM 14 5408150 SODIUM 138 MMOL/L 12/22/2012 CHEM 14 4929804 CREATININE 1.07 MG/DL 12/22/2012 CHEM 14 2267667 CALCIUM 9.3 MG/DL 12/22/2012 CHEM 14 6478403 POTASSIUM 4.2 MMOL/L 12/22/2012 CHEM 14 7803182 PROT TOT 6.9 GM/DL 12/22/2012 CHEM 14 9210100 GLUCOSE 86 MG/DL 12/22/2012 CHEM 14 1231684 BICARB 30 MMOL/L 12/22/2012 CHEM 14 3460649 ANION GAP 3 MEQ/L 12/22/2012 TSH 7885977 TSH 1.886 uIU/ML 12/22/2012 GFR CALC 1080931 GFR AA >60 ML/MIN 12/22/2012 GFR CALC 8557821 GFR NON-AA >60 ML/MIN 12/22/2012 LIPID GRP HDL TEST 48 MG/DL 12/22/2012 LIPID GRP TRIG 60 MG/DL 12/22/2012 LIPID GRP TEST LDL 121 MG/DL 12/22/2012 LIPID GRP CHOL 181 MG/DL 12/22/2012 LIPID GRP RCHOL/HDL 3.77 RATIO 12/22/2012 CBC 1215225 WBC 4.1 10e9/L 12/22/2012 CBC 4621178 RBC 4.67 10e12/L 12/22/2012 CBC 9921882 HGB 14.1 g/dL 12/22/2012 CBC 0454427 HCT DET 40.6 % 12/22/2012 CBC 7702774 MCV 86.9 fL 12/22/2012 CBC 6814685 MCH 30.2 pg 12/22/2012 CBC 1573087 MCHC 34.7 g/dL 12/22/2012 CBC 4745068 PLT 170 10e9/L 12/22/2012 CBC 5392279 MPV 9.1 fL 12/22/2012 CBC 0384231 LAUREL % 49.2 % 12/22/2012 CBC 8698731 LY % 34.8 % 12/22/2012 CBC 3914231 MON % 12.1 % 12/22/2012 CBC 1747513 EOS % 3.4 % 12/22/2012 CBC 8886907 BASO % 0.5 % 12/22/2012 CBC 1209536 RDW 13.8 % 12/22/2012 CBC 6710038 ABS LAUREL 2.02 10e9/L 12/22/2012 CBC 5273512 ABS LYMPH 1.43 10e9/L 12/22/2012 CBC 5643351 ABS MONO 0.50 10e9/L 12/22/2012 CBC 6920720 ABS EOS 0.14 10e9/L 12/22/2012 CBC 9501475 ABS BASO 0.02 10e9/L 12/22/2012 CBC 2328446 RDW-SD 43.0 fL 12/22/2012 LIPID GRP HDL TEST 52 MG/DL 09/25/2011 LIPID GRP TRIG 48 MG/DL 09/25/2011 LIPID GRP TEST LDL 128 MG/DL 09/25/2011 LIPID GRP CHOL 190 MG/DL 09/25/2011 LIPID GRP 3725202 RCHOL/HDL 3.65 RATIO 09/25/2011 TSH 0712145 TSH 1.923 uIU/ML 09/25/2011 GFR CALC 3380967 GFR AA >60 ML/MIN 09/25/2011 GFR CALC 8658887 GFR NON-AA >60 ML/MIN 09/25/2011 CHEM 14 5804754 AST 16 U/L 09/25/2011 CHEM 14 1535472 ALT 12 IU/L 09/25/2011 CHEM 14 6597128 BUN 28 MG/DL 09/25/2011 CHEM 14 6331210 ALBUMIN 4.2 GM/DL 09/25/2011 CHEM 14 2471261 CHLORIDE 105 MMOL/L 09/25/2011 CHEM 14 5678408 BILI TOT 0.9 MG/DL 09/25/2011 CHEM 14 2700479 ALK PHOS 35 U/L 09/25/2011 CHEM 14 2183404 SODIUM 138 MMOL/L 09/25/2011 CHEM 14 4900570 CREATININE 1.02 MG/DL 09/25/2011 CHEM 14 0498450 CALCIUM 9.2 MG/DL 09/25/2011 CHEM 14 0051449 POTASSIUM 4.1 MMOL/L 09/25/2011 CHEM 14 5007886 PROT TOT 6.7 GM/DL 09/25/2011 CHEM 14 6811129 GLUCOSE 85 MG/DL 09/25/2011 CHEM 14 0247708 BICARB 29 MMOL/L 09/25/2011 CHEM 14 5640993 ANION GAP 4 MEQ/L 09/25/2011 CBC 3032279 WBC 4.1 10e9/L 09/25/2011 CBC 0145748 RBC 4.71 10e12/L 09/25/2011 CBC 8259196 HGB 14.0 g/dL 09/25/2011 CBC 1490313 HCT DET 40.3 % 09/25/2011 CBC 9090563 MCV 85.6 fL 09/25/2011 CBC 6454950 MCH 29.7 pg 09/25/2011 CBC 6236838 MCHC 34.7 g/dL 09/25/2011 CBC 8289923 PLT 148 10e9/L 09/25/2011 CBC 7976438 MPV 9.1 fL 09/25/2011 CBC 6107661 LAUREL % 48.6 % 09/25/2011 CBC 4480425 LY % 36.6 % 09/25/2011 CBC 4626656 MON % 11.2 % 09/25/2011 CBC 2805739 EOS % 3.4 % 09/25/2011 CBC 4094688 BASO % 0.2 % 09/25/2011 CBC 9363400 RDW 13.2 % 09/25/2011 CBC 3156988 ABS LAUREL 1.99 10e9/L 09/25/2011 CBC 1728160 ABS LYMPH 1.50 10e9/L 09/25/2011 CBC 7189748 ABS MONO 0.46 10e9/L 09/25/2011 CBC 7685768 ABS EOS 0.14 10e9/L 09/25/2011 CBC 3805492 ABS BASO 0.01 10e9/L 09/25/2011 CBC 3091705 RDW-SD 40.9 fL 09/25/2011 Review of Systems [...] intact 11/24/2012 None Full Exam - General 1995 Neurologic cranial nerves Overall: crainial nerves 2 - 12 grossly intact 11/24/2012 None Full Exam - General 1995 Neurologic motor Overall: normal bulk, tone 11/24/2012 None Full Exam - General 1995 Psychiatric orientation/consciousness Overall: oriented to person, place and time 11/24/2012 None Full Exam - General 1994 Psychiatric mood and affect Overall: normal mood and affect 11/24/2012 None Full Exam - General 1995 Constitutional general appearance Overall: well developed 05/26/2012 None Full Exam - General 1995 Constitutional [...] 10/02/2011 dry, rough, scaly lesion to left caodaism, right caodaism, bridge of left nose x 2-removed using [...] 1995 Eyes conjunctiva /eyelids Overall: eyelids normal 09/20/2011 [...] -4: G0439 01/23/2016 DESTRUCT PREMALG LESION CPT-4: 61248 10/02/2011 DESTRUCT PREMALG LES 2-14 CPT-4: 21595 10/02/2011 Vital Signs Date Vital 10/21/2017 Blood Pressure 1: 142/82 Code : 8480-6 Heart Rate 1: 59 bpm Height: 5'9" SpO2: 98% Weight: 10/18/2017 Blood Pressure 1: 146/78 Code : 8480-6 BMI: 27.2 Code : 32471-7 Heart Rate 1 : 65 bpm Height: 5'9" SpO2: 96% Weight: 184 lbs 09/10/2017 Blood Pressure 1: 122/80 Code : 8480-6 BMI: 27.2 Code : 82903-7 Heart Rate 1 : 68 bpm Height: 5'9" SpO2: 96% Weight: 184 lbs 5 oz 03/14/2017 Blood Pressure 1: 128/80 Code : 8480-6 BMI: 28.1 Code : 50733-8 Heart Rate 1 : 63 bpm Height: 5'9" SpO2: 99% Weight: 190 lbs 09/11/2016 Blood Pressure 1: 120/70 Code : 8480-6 BMI: 28.2 Code : 65551-2 Heart Rate 1 : 56 bpm Height: 5'9" SpO2: 97% Weight: 191 lbs 03/07/2016 Blood Pressure 1: 124/66 Code : 8480-6 BMI: 27.3 Code : 80149-7 Heart Rate 1 : 64 bpm Height: 5'9" SpO2: 98% Weight: 185 lbs 01/23/2016 Blood Pressure 1: 140/66 Code : 8480-6 BMI: 27.2 Code : 88540-0 Heart Rate 1 : 55 bpm Height: 5'9" SpO2: 98% Waist Measure (cm): 86 cm Weight: 184 lbs 11/09/2015 Blood Pressure 1: 132/80 Code : 8480-6 BMI: 26.9 Code : 37305-9 Heart Rate 1 : 60 bpm Height: 5'9" SpO2: 98% Weight: 182 lbs 08/09/2015 Blood Pressure 1: 122/72 Code : 8480-6 BMI: 27.0 Code : 35395-1 Heart Rate 1 : 61 bpm Height: 5'9" SpO2: 98% Weight: 182 lbs 8 oz 07/04/2015 Blood Pressure 1: 132/80 Code : 8480-6 BMI: 27.0 Code : 49579-8 Heart Rate 1 : 52 bpm Height: 5'9" SpO2: 98% Weight: 183 lbs 06/30/2015 Blood Pressure 1: 162/88 Code : 8480-6 Heart Rate 1: 58 bpm 06/14/2015 Blood Pressure 1: 170/96 Code : 8480-6 BMI: 27.3 Code : 84309-0 Heart Rate 1 : 55 bpm Height: 5'9" SpO2: 98% Weight: 185 lbs 03/14/2015 Blood Pressure 1: 152/80 Code : 8480-6 Blood Pressure 1: 136/82 Code: 8480-6 BMI: 27.5 Code: 00015-1 Heart Rate 1: 56 bpm Height: 5'9" SpO2: 98% Weight: 186 lbs 12/13/2014 Blood Pressure 1: 138/80 Code : 8480-6 BMI: 27.0 Code : 21380-5 Heart Rate 1 : 70 bpm Height: 5'9" Weight: 183 lbs 11/16/2014 Blood Pressure 1: 130/70 Code : 8480-6 Heart Rate 1: 64 bpm Height: Weight: 09/09/2014 Blood Pressure 1: 140/90 Code : 8480-6 BMI: 26.3 Code : 92374-1 Heart Rate 1 : 78 bpm Height: 5'9" Weight: 178 lbs 08/25/2014 Blood Pressure 1: 160/90 Code : 8480-6 BMI: 26.3 Code : 94923-3 Heart Rate 1 : 79 bpm Height: 5'9" SpO2: 97% Weight: 178 lbs 06/10/2014 Blood Pressure 1: 142/88 Code : 8480-6 BMI: 26.7 Code : 09228-1 Heart Rate 1 : 63 bpm Height: 5'9" SpO2: 97% Weight: 181 lbs 12/03/2013 Blood Pressure 1: 138/78 Code : 8480-6 BMI: 26.0 Code : 04083-5 Heart Rate 1 : 68 bpm Height: 5'9" SpO2: 98% Weight: 176 lbs 05/25/2013 Blood Pressure 1: 152/84 Code : 8480-6 Blood Pressure 2: 138/86 Code: 8480-6 BMI: 26.1 Code: 73908-4 Heart Rate 1: 80 bpm Height: 5'9" Weight: 177 lbs 11/24/2012 Blood Pressure 1: 124/68 Code : 8480-6 BMI: 25.4 Code : 78940-4 Heart Rate 1 : 80 bpm Height: 5'9" Weight: 172 lbs 05/26/2012 Blood Pressure 1: 120/58 Code : 8480-6 BMI: 26.1 Code : 32571-1 Heart Rate 1 : 72 bpm Height: 5'9" Respiratory Rate: 16 bpm Weight: 177 lbs 11/27/2011 Blood Pressure 1: 116/68 Code : 8480-6 BMI: 25.5 Code : 28237-1 Heart Rate 1 : 60 bpm Height: 5'9" Respiratory Rate: 16 bpm Weight: 172 lbs 8 oz 10/02/2011 Blood Pressure 1: 134/74 Code : 8480-6 Heart Rate 1: 60 bpm 09/20/2011 Blood Pressure 1: 116/60 Code : 8480-6 BMI: 25.1 Code : 03294-9 Heart Rate 1 : 80 bpm Height: [...] Codes Date EST. PATIENT, LEVEL III Diagnosis: Muscle spasm of back[ICD10: M62.830] Diagnosis: Essential (primary) hypertension[ICD10: I10] Bernadette Chau MD, [facility] CPT-4: 95537 10/21/2017 [id number]) [id number] EST. PATIENT, LEVEL III Diagnosis: Gastro-esophageal reflux disease without esophagitis[ICD10: K21.9] Diagnosis: Cervicalgia[ICD10: M54.2] Michelle Chau MD, [facility] CPT-4: 44236 10/18/2017 16069) [id number] EST. PATIENT, LEVEL IV Diagnosis: Essential (primary) hypertension[ICD10: I10] Diagnosis: Essential tremor[ICD10: G25.0] Bernadette Chau MD, [facility] CPT- 4: 75671 09/10/2017 [id number] EST. PATIENT, LEVEL IV Diagnosis: Essential (primary) hypertension[ICD10: I10] Diagnosis: Essential tremor[ICD10: G25.0] Bernadette Chau MD, [facility] CPT- 4: 82279 03/14/2017 [id number] 06843 EST. PATIENT, LEVEL IV Diagnosis: Essential (primary) hypertension[ICD10: I10] Diagnosis: Essential tremor[ICD10: G25.0] Bernadette Chau MD, [facility] CPT- 4: 57171 09/11/2016 [id number] EST. PATIENT, LEVEL IV Diagnosis: Essential (primary) hypertension[ICD10: I10] Diagnosis: Essential tremor[ICD10: G25.0] Bernadette Chau MD, [facility] CPT- 4: 86111 03/07/2016 13655) [id number] EST. PATIENT, LEVEL III Diagnosis: Essential (primary) hypertension[ICD10: I10] Diagnosis: Essential tremor[ICD10: G25.0] Bernadette Chau MD, [facility] CPT- 4: 64259 11/09/2015 [id number]) 53747 EST. PATIENT, LEVEL III Diagnosis: Essential (primary) hypertension[ICD10: I10] Bernadette Chau MD [facility] CPT-4: 49157 08/09/2015 ([id number]) 04568 EST. PATIENT, LEVEL III Diagnosis: Essential (primary) hypertension[ICD10: I10] Bernadette Chau MD [facility] CPT-4: 03785 07/04/2015 ([id number]) Miscellaneous no charge Diagnosis: Essential (primary) hypertension[ICD10: I10] Bernadette Chau MD [facility] CPT-4: 01570 06/30/2015 ([id number]) 50485 EST. PATIENT, LEVEL IV Diagnosis: Essential (primary) hypertension[ICD10: I10] Diagnosis: Male erectile disorder[ICD10: F52.21] Diagnosis: Gastro-esophageal reflux disease without esophagitis[ICD10: K21.9] Bernadette Chau MD [facility] CPT-4: 12872 06/14/2015 ([id number]) 42026 EST. PATIENT, LEVEL IV Diagnosis: Essential (primary) hypertension[ICD10: I10] Diagnosis: Low back pain[ICD10: M54.5] Diagnosis: Malignant neoplasm of prostate[ICD10: C61] Bernadette Chau MD [facility] CPT-4: 47362 03/14/2015 ([id number]) 98176 EST. PATIENT, LEVEL III Diagnosis: Essential (primary) hypertension[ICD10: I10] Bernadette Chau MD [facility] CPT-4: 11805 12/13/2014 ([id number]) 48002 EST. PATIENT, LEVEL II Diagnosis: ESSENTIAL HYPERTENSION[ICD9: 401.9] Bernadette Chau MD [facility] CPT-4: 58939 11/16/2014 ([id number]) 63223 EST. PATIENT, LEVEL III Diagnosis: ESSENTIAL HYPERTENSION[ICD9: 401.9] Diagnosis: GENERALIZED ANXIETY DISEASE[ICD9: 300.02] Bernadette Chau MD [facility] CPT-4: 55662 09/09/2014 ([id number]) 60270 EST. PATIENT, LEVEL IV Diagnosis: ESSENTIAL HYPERTENSION[ICD9: 401.9] Diagnosis: GENERALIZED ANXIETY DISEASE[ICD9: 300.02] Bernadette Chau MD [facility] CPT-4: 56215 08/25/2014 ([id number]) 75845 EST. PATIENT, LEVEL IV Diagnosis: ESSENTIAL HYPERTENSION[ICD9: 401.9] Diagnosis: GENERALIZED ANXIETY DISEASE[ICD9: 300.02] Diagnosis: ESOPHAGEAL REFLUX[ICD9: 530.81] Bernadette Chau MD [facility] CPT- 4: 14152 06/10/2014 ([id number]) 38690 EST. PATIENT, LEVEL IV Diagnosis: ESSENTIAL HYPERTENSION[ICD9: 401.9] Diagnosis: ESOPHAGEAL REFLUX[ICD9: 530.81] Bernadette Chau MD, [facility] CPT- 4: 24785 12/03/2013 ([id number]) 65773 EST. 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 PATIENT, LEVEL IV Diagnosis: ESSENTIAL HYPERTENSION[SNOMED: 90726127] Diagnosis: Nausea[ICD9: 787.02] Diagnosis: ESOPHAGEAL REFLUX[ICD9: 530.81] Bernadette Chau MD, [facility] CPT- 4: 02432 11/24/2012 ([id number]) 30380 EST. 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 PATIENT, LEVEL III Diagnosis: ESSENTIAL HYPERTENSION[SNOMED: 24566385] Bernadette Chau MD, [facility] CPT-4: 29494 11/27/2011 ([id number]) OFFICE VISIT, NEW - LEVEL 3 Diagnosis: ESSENTIAL HYPERTENSION[SNOMED: 09711069] Diagnosis: Impotence[ICD9: 607.84] Diagnosis: Osteoarthritis[ICD9: 715.90] Bernadette Chau MD, [facility] CPT- 4: 81971 09/20/2011 Plan of Care Planned Activity Notes Codes Status Date Visit Plan: Parkinson's Disease - pt has [...] exercises daily. 10/18/2017 Appointment: Michelle Dutton WPtel: [facility]5 [phone] (30 min) Complex 10/18/2017 Patient Education: Patient [...] symptoms worsen. 09/10/2017 Appointment: Bernadette Chau WPtel: [facility] (15 min) Moderate 09/10/2017 Patient Education: Patient [...] supportive care. 03/14/2017 Appointment: Bernadette Chau WPtel[facility] ([facility] min) Moderate 03/14/2017 Patient Education: Patient [...] this time 09/11/2016 Appointment: Bernadette Chau WPtel: [facility] (15 min) Moderate 09/11/2016 Patient Education: Patient [...] symptoms. 03/07/2016 Appointment: [facility]el[phone] (15 min) Moderate 03/07/2016 Patient Education: Patient [...] care surrogate. 01/23/2016 Appointment: Kelly Mancera WPtel: [phone] [facility] [place] [address] - Annual Wellness Visit 01/23/2016 Patient Education: [...] essential tremor. 11/09/2015 Appointment: Bernadette Chau WPtel: [facility]2 [facility] (15 min) Moderate 11/09/2015 Patient Education: Patient [...] home. 08/09/2015 Appointment: Bernadette Chau WPtel: [phone] [facility] (15 min) Moderate 08/09/2015 Patient Education: Patient [...] acute concerns. 07/04/2015 Appointment: [facility]Ptel[phone] (15 min) Moderate 07/04/2015 Patient Education: Patient [...] not improving. 06/14/2015 Appointment: [facility]el[phone] (30 min) Complex 06/14/2015 Patient Education: Patient [...] and sacrum. 03/14/2015 Appointment: Bernadette Chau WPtel: [phone] [facility] (15 min) Moderate 03/14/2015 Patient Education: [...] 50mg daily. 12/13/2014 Appointment: Bernadette Chau WPtel: [phone] [facility] (15 min) Moderate 12/13/2014 Patient Education: Patient Medication Summary Completed 12/13/2014 Patient Education: Hypertension Completed 12/13/2014 Appointment: Bernadette Chau WPtel: [facility]7 [facility] Follow up 12/09/2014 Visit Plan: Hypertension [...] improving. 09/09/2014 Appointment: Bernadette Chau WPtel: [phone] [facility] (15 min) Moderate 09/09/2014 Patient Education: Patient [...] acute concerns. 08/25/2014 Appointment: Bernadette Chau WPtel: [phone] (10 min) Simple 08/25/2014 Patient Education: Patient [...] on cialis. 06/10/2014 Appointment: Bernadette Chau WPtel: [phone] [facility] Follow up 06/10/2014 Patient Education: Patient [...] home. 12/03/2013 Appointment: Bernadette Chau WPtel: [phone] [facility] Follow up 12/03/2013 Patient Education: Patient [...] of cialis 05/25/2013 Appointment: Bernadette Chau WPtel: [phone] [facility] Follow up 05/25/2013 Patient Education: Patient [...] not improving. 11/24/2012 Appointment: Bernadette Chau WPtel: [phone] [facility] Follow up 11/24/2012 Patient Education: Patient Medication [...] times daily. 05/26/2012 Appointment: Bernadette Chau WPtel: [address] [place], [place] [phone] Established Patient Preventative visit 05/26/2012 Patient Education: [...] at home. 11/27/2011 Appointment: Bernadette Chau WPtel: [facility]5 [address] Follow up 11/27/2011 Patient Education: Patient Medication Summary Completed 11/27/2011 Patient Education: High Blood Pressure: Essential Hypertension Completed 2011 Visit Plan: Wound Instructions - Pt was instruced to keep the wound clean, wash with antibacterial soap, use triple antibiotic ointment, call if redness, pustular drainage, or any other acute conerns. 10/02/2011 Appointment: Michelle Dutton WPtel: [facility]7 [phone] [place] [address] Surgical Procedure 10/02/2011 Patient Education: Patient Medication [...] symptoms. 09/20/2011 Appointment: Bernadette Chau WPtel: [facility]6 [facility] New Patient 09/20/2011 Patient Education: Patient Medication [...] blood pressure readings at home. Declined Procedure: (53058) FLU VACC 4 WILVER 3 YRS PLUS [...]
[2018-01-04 00:40] LABS: BACTERIA,URINE NEGATIVE /HPF; SQUAMOUS EPITHELIAL CELL,UR RARE /HPF
--- OUTSIDE RECORDS SUMMARY | 2018-01-04 00:43 | XMS REPORT | CCD ---
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 Role Phone PP Unavailable CCM Unavailable Summary Purpose Interface Exchange Insurance Providers Payer name Policy type / Coverage type Covered democrat ID Effective Begin Date Effective End Date WPS Medicare Part B Medicare Part B [id number] 2017 Unknown [facility] Medicare Part B [id number] Unknown Family history Uncle Diagnosis Age At [...] Unknown Retired 09/20/[address]: 810415731 Nonsmoker smoked for 2-3 years in 20's, used smokeless tobacco for 40 yrs 09/20/[address]: 1082277 Former smoker quit 1965 09/20/2011 Alcohol history [...] 530.81 ICD-10: K21.9 Active 12/03/2013 Unknown Essential (primary) hypertension ICD-9: 401.9 ICD-10: [...] ICD-9: 530.81 ICD-10: K21.9 12/03/2013 Active Essential (primary) hypertension ICD-9: 401.9 ICD-10: [...] Start Date Stop Date Status Fill Instructions buspirone 15 mg tablet RxNorm: 103546 Tablet(s) Take 1 pill in the morning, 1/2 pill at 1 or 2pm and 1 pill at bedtime 10/21/2017 No Stop Date Active prednisone 20 mg tablet RxNorm: 270879 3 Tablet(s) PO daily -Prescribed by Dr. Dann Rod on 10/20/17 10/20/20172017 Active Dexilant 60 mg capsule, delayed release RxNorm: 186603 1 Capsule(s) PO daily 10/18/2017 No Stop Date Active tramadol 50 mg tablet RxNorm: 493015 1 Tablet(s) PO TID PRN 10/24/2017 Active hydrochlorothiazide 25 mg tablet RxNorm: 280329 TAKE 1 TABLET BY MOUTH IN THE MORNING 09/30/2017 04/27/2018 Active Generic For:HYDRODIURIL 25 MG TABLET 2017 11:36:14 AM Sinemet 10 mg-100 mg tablet RxNorm: 123253 1 Tablet(s) PO BID morning and early afternoon 09/10/2017 04/07/2018 Active potassium chloride ER 10 mEq capsule,extended release RxNorm: 766379 1 Capsule(s) PO TIW 07/22/2017 06/22/2018 Active buspirone 15 mg tablet RxNorm: 257769 Tablet(s) Take 1 pill in the morning, 1/2 pill at 1 or 2pm and 1 pill at bedtime 05/08/2017 09/28/2017 Inactive doxazosin 1 mg tablet RxNorm: 695452 TAKE 1/2 (ONE- HALF) TABLET TWICE DAILY 04/10/2017 11/05/2017 Active Generic For:CARDURA 1MG 04/10/2017 1:06:52 PM carvedilol 12.5 mg tablet RxNorm: 070354 Tablet(s) TAKE 1 TABLET BY MOUTH TWICE DAILY 04/10/2017 11/05/2017 Active hydrochlorothiazide 25 mg tablet RxNorm: 137751 TAKE 1 TABLET BY MOUTH IN THE MORNING 03/05/2017 09/29/2017 Inactive Generic For:HYDRODIURIL 25 MG TABLET 2017 10:38:53 AM buspirone 15 mg tablet RxNorm: 024021 Tablet(s) Take 1 pill in the morning, 1/2 pill at 1 or 2pm and 1 pill at bedtime 12/06/2016 04/28/2017 Inactive doxazosin 1 mg tablet RxNorm: 048414 1/2 Tablet(s) PO BID 201604/09/2017 Inactive lisinopril 40 mg tablet RxNorm: 435673 TAKE 1/2 TABLET BY MOUTH TWICE DAILY 09/18/2016 09/12/2017 Inactive Generic For:ZESTRIL 40MG 09/18/2016 9:08:05 AM carvedilol 12.5 mg tablet RxNorm: 213340 Tablet(s) TAKE 1 TABLET BY MOUTH TWICE DAILY 09/14/2016 04/09/2017 Inactive potassium chloride ER 10 mEq capsule,extended release RxNorm: 335833 1 Capsule(s) PO TIW 08/14/2016 07/15/2017 Inactive hydrochlorothiazide 25 mg tablet RxNorm: 711492 TAKE 1 TABLET BY MOUTH IN THE MORNING 08/06/2016 03/03/2017 Inactive Generic For:HYDRODIURIL 25 MG TABLET 2016 9:47:38 AM doxazosin 1 mg tablet RxNorm: 362419 1/2 Tablet(s) PO BID 201611/11/2016 Inactive fexofenadine 180 mg tablet RxNorm: 129238 1 Tablet(s) PO daily 04/05/2016 10/01/2016 Inactive fexofenadine 180 mg tablet RxNorm: 148136 1 Tablet(s) PO daily 04/05/2016 04/04/2016 Inactive buspirone 15 mg tablet RxNorm: 846932 Tablet(s) Tablet(s) take 1 pill in the morning, 1/2 pill at 1 or 2pm and 1 pill at bedtime 201609/07/2016 Inactive Generic For:BUSPAR 15MG 08/19/2014 9:29:55 AM carvedilol 12.5 mg tablet RxNorm: 422325 Tablet(s) TAKE 1 TABLET BY MOUTH TWICE DAILY 02/14/2016 09/10/2016 Inactive potassium chloride ER 10 mEq capsule,extended release RxNorm: 766086 1 Capsule(s) PO TIW 02/08/2016 08/13/2016 Inactive hydrochlorothiazide 25 mg tablet RxNorm: 947149 1 Tablet(s) PO QAM 01/09/2016 08/05/2016 Inactive carvedilol 12.5 mg tablet RxNorm: 237046 TAKE 1 TABLET BY MOUTH TWICE DAILY 10/18/2015 02/13/2016 Inactive Generic For:COREG 12.5MG 10/17/2015 1:04:24 PM lisinopril 40 mg tablet RxNorm: 565341 1/2 Tablet(s) PO BID 08/15/2016 Inactive Generic For:ZESTRIL 20MG 07/21/2014 9:29:18 AM doxazosin 1 mg tablet RxNorm: 214159 1/2 Tablet(s) PO BID 201510/31/2015 Inactive this is FYI for now - and will remain this in the future, does not need a fill right now doxazosin 1 mg tablet RxNorm: 625017 1 Tablet(s) PO BID 201506/29/2015 Inactive doxazosin 1 mg tablet RxNorm: 113150 1 Tablet(s) PO BID 201507/03/2015 Inactive potassium chloride ER 10 mEq capsule,extended release RxNorm: 609280 1 Capsule(s) PO TIW 06/14/2015 01/09/2016 Inactive hydrochlorothiazide 25 mg tablet RxNorm: 843913 1 Tablet(s) PO QAM 06/14/2015 01/08/2016 Inactive buspirone 15 mg tablet RxNorm: 252701 Tablet(s) take 1 pill in the morning, 1/2 pill at 1 or 2pm and 1 pill at bedtime 06/13/2015 12/09/2015 Inactive Generic For: BUSPAR 15MG 08/19/2014 9:29:55 AM carvedilol 12.5 mg tablet RxNorm: 874134 TAKE 1 TABLET BY MOUTH TWICE DAILY 05/20/2015 09/16/2015 Inactive Generic For:COREG 12.5MG 05/20/2015 9:04:34 AM carvedilol 12.5 mg tablet RxNorm: 484894 Tablet(s) 1 Tablet(s) PO BID 05/20/2015 05/19/2015 Inactive carvedilol 12.5 mg tablet RxNorm: 001660 1 Tablet(s) PO BID 05/19/2015 Inactive spironolactone 50 mg tablet RxNorm: 907896 1 Tablet(s) PO QAM 12/13/2014 06/13/2015 Inactive carvedilol 12.5 mg tablet RxNorm: 659105 1 Tablet(s) PO BID 01/11/2015 Inactive spironolactone 25 mg tablet RxNorm: 735184 1 Tablet(s) PO QAM 09/13/2014 12/12/2014 Inactive spironolactone 25 mg tablet RxNorm: 176646 1 Tablet(s) PO QAM 09/13/2014 09/12/2014 Inactive buspirone 15 mg tablet RxNorm: 196161 Tablet(s) take 1 pill in the morning, 1/2 pill at 1 or 2pm and 1 pill at bedtime 09/09/2014 03/07/2015 Inactive Generic For: BUSPAR 15MG 08/19/2014 9:29:55 AM lisinopril 40 mg tablet RxNorm: 331727 1/2 Tablet(s) PO BID 08/19/2015 Inactive Generic For:ZESTRIL 20MG 07/21/2014 9:29:18 AM Coreg 6.25 mg tablet RxNorm: 250023 1 Tablet(s) PO BID 201409/13/2014 Inactive buspirone 15 mg tablet RxNorm: 569594 TAKE 1 TABLET BY MOUTH TWICE DAILY 08/19/2014 09/08/2014 Inactive Generic For:BUSPAR 15MG 08/19/2014 9:29:55 AM lisinopril 20 mg tablet RxNorm: 434025 1 Tablet(s) PO daily TAKE 1 TABLET BY MOUTH ONCE DAILY. 07/21/2014 07/20/2014 Inactive Generic For:*ZESTRIL 20MG Generic For:*ZESTRIL 20MG 07/29/2013 11:19:45 AM lisinopril 20 mg tablet RxNorm: 048023 TAKE 1 TABLET BY MOUTH ONCE DAILY. 07/21/2014 08/24/2014 Inactive Generic For:ZESTRIL 20MG 07/21/2014 9:29:18 AM buspirone 15 mg tablet RxNorm: 974562 1 Tablet(s) BID 1 Tablet(s) PO BID 06/21/2014 08/18/2014 Inactive Tamiflu 75 mg capsule RxNorm: 212914 1 Capsule(s) PO daily 03/1203/11/2014 Inactive Tamiflu 75 mg capsule RxNorm: 129051 1 Capsule(s) PO daily 03/1203/21/2014 Inactive buspirone 15 mg tablet RxNorm: 757682 1 Tablet(s) BID 1 Tablet(s) PO BID 02/16/2014 06/20/2014 Inactive buspirone 15 mg tablet RxNorm: 862870 1 Tablet(s) PO BID 201302/15/2014 Inactive lisinopril 20 mg tablet RxNorm: 414379 Tablet(s) PO TAKE 1 TABLET BY MOUTH ONCE DAILY. 07/30/2013 07/20/2014 Inactive Generic For:*ZESTRIL 20MG Generic For:* ZESTRIL 20MG 07/29/2013 11:19:45 AM buspirone 15 mg tablet RxNorm: 653127 1 Tablet(s) PO BID 201310/18/2013 Inactive Zithromax 250 mg tablet RxNorm: 370286 Tablet(s) PO 03/18/2013 06/13/2015 Inactive as directed buspirone 15 mg tablet RxNorm: 789584 Tablet(s) PO TAKE 1 TABLET AT BEDTIME AND TAKE 1/2 A TABLET TWICE A DAY 12/22/2012 05/24/2013 Inactive buspirone 15 mg tablet RxNorm: 555009 1 at hs 1/2 bid Tablet(s) PO daily 11/27/2012 10/20/2017 Inactive buspirone 15 mg tablet RxNorm: 775808 Tablet(s) PO daily 201211/26/2012 Inactive 1 q hs and 1/2 daily buspirone 15 mg tablet RxNorm: 119543 Tablet(s) PO daily 2012 No Stop Date Active 1 q hs and 1/2 daily buspirone 15 mg tablet RxNorm: 447763 Tablet(s) PO daily 201210/26/2012 Inactive 1 q hs and 1/2 daily lisinopril 20 mg tablet RxNorm: 650988 Tablet(s) PO TAKE 1 TABLET BY MOUTH ONCE DAILY. 08/05/2012 07/29/2013 Inactive lisinopril 20 mg tablet RxNorm: 798680 Tablet(s) PO TAKE 1 TABLET BY MOUTH ONCE DAILY. 07/07/2012 08/04/2012 Inactive lisinopril 20 mg tablet RxNorm: 521255 Tablet(s) PO 01/07/2012 07/06/2012 Inactive TAKE 1 TABLET BY MOUTH ONCE DAILY. lisinopril 20 mg tablet RxNorm: 497686 Tablet(s) PO 12/10/2011 01/06/2012 Inactive TAKE 1 TABLET BY MOUTH ONCE DAILY. lisinopril 20 mg tablet RxNorm: 268035 1 Tablet(s) PO daily 01/201212/09/2011 Inactive can have #90 if prefers lisinopril 20 mg tablet RxNorm: 486715 1 Tablet(s) PO daily 01/201211/12/2011 Inactive can have #90 if prefers buspirone 15 mg tablet RxNorm: 471019 Tablet(s) PO daily 201110/26/2012 Inactive 1 q hs and 1/2 daily Calcium 600 + D(3) oral RxNorm: 524964 oral No Start Date Active Percocet 5 mg-325 mg tablet RxNorm: 5631804 1 Tablet(s) PO Q6 as needed breakthrough pain- Prescribed by Dr. Lebron on 10/20/17 No Start Date Active Fish Oil Concentrate Oral RxNorm: Oral No Start Date Active diazepam 5 mg tablet RxNorm: 222553 1 Tablet(s) PO Q6 as needed muscle spasms - Prescribed by Dr. Dann Rod on 10/20/17 No Start Date Active Centrum Silver Oral RxNorm: Oral No Start Date Active Zithromax 250 mg tablet RxNorm: 612778 Tablet(s) PO No Start Date 03/17/2013 Inactive as directed lisinopril 20 mg tablet RxNorm: 202213 1 Tablet(s) PO daily No Start Date 11/16/2014 Inactive buspirone 15 mg tablet RxNorm: 811698 1 Tablet(s) PO daily No Start Date 09/24/2011 Inactive B Complex 1 Oral RxNorm: Oral No Start Date 06/13/2015 Inactive lisinopril 20 mg tablet RxNorm: 124120 1 Tablet(s) PO daily No Start Date 11/12/2011 Inactive Medication Administered No Medication Administered data Immunizations No Immunization data Assessments Condition Codes Effective Dates Cervicalgia ICD-10: M54.2 ICD-9: 723.1 10/18/2017 Gastro-esophageal reflux disease without esophagitis ICD-10 : K21.9 ICD-9: 530.81 10/18/2017 Essential (primary) hypertension ICD-10: I10 ICD-9: 401.9 09/10/2017 Essential tremor ICD-10: G25.0 ICD-9: 333.1 09/10/2017 [...] Visit Reason For Visit Effective Dates Notes neck pain 10/18/2017 hypertension 09/10/2017 Annual Medicare [...] 88.8 fl 03/08/2016 Cbc With Differential Ord2 Gordon% 10.8 % 03/08/2016 Cbc With Differential Ord2 [...] 1.66 K/ul 03/08/2016 Cbc With Differential Ord2 Gordon ABS# 0.5 K/ul 03/08/2016 Cbc With Differential Ord2 Eos ABS# 0.1 K/ul 03/08/2016 Cbc With Differential Ord2 Baso ABS# 0.1 K/ul 03/08/2016 Comp Metabolic Kji111 NA 137 mEq/L 03/08/2016 Comp Metabolic Nus982 K 3.8 mEq/L 03/08/2016 Comp Metabolic Kvq583 CL 100 mEq/L 03/08/2016 Comp Metabolic Uxv577 CO2 32.0 mEq/L 03/08/2016 Comp Metabolic Dgz015 ANION GAP 9 03/08/2016 Comp Metabolic Bvu016 GLUCOSE 88 mg/dL 03/08/2016 Comp Metabolic Oej612 Creat 1.1 mg/dL 03/08/2016 Comp Metabolic Gdm182 eGFR 67 ml/min/1.73m2 03/08/2016 Comp Metabolic Zqk634 BUN 17 mg/dL 03/08/2016 Comp Metabolic Kzx941 B/C Ratio 15.0 Ratio 03/08/2016 Comp Metabolic Ohk954 CALCIUM 9.2 mg/dL 03/08/2016 Comp Metabolic Ykb445 ALK PHOS 43 U/L 03/08/2016 Comp Metabolic Zmq894 AST(SGOT) 19 U/L 03/08/2016 Comp Metabolic Jmg444 ALT(SGPT) 17 U/L 03/08/2016 Comp Metabolic Wuy240 BILI T 1.1 mg/dL 03/08/2016 Comp Metabolic Trg349 ALBUMIN 4.2 g/dL 03/08/2016 Comp Metabolic Fnu019 TPRO 7.1 g/dL 03/08/2016 Comp Metabolic Qgl550 GLOB 2.9 g/dL 03/08/2016 Comp Metabolic Nww390 A/G Ratio 1.5 Ratio 03/08/2016 Comp Metabolic Sim718 Osmo 275 mOsmo 03/08/2016 Tsh Ord6 hTSH II 2.21 uIU/mL 03/08/2016 Comp Metabolic Fmf031 NA 139 mEq/L 06/15/2015 Comp Metabolic Jam184 K 4.0 mEq/L 06/15/2015 Comp Metabolic Kja365 CL 103 mEq/L 06/15/2015 Comp Metabolic Amj282 CO2 28.0 mEq/L 06/15/2015 Comp Metabolic Kgc945 ANION GAP 12 06/15/2015 Comp Metabolic Jsy388 GLUCOSE 79 mg/dL 06/15/2015 Comp Metabolic Fis129 Creat 1.0 mg/dL 06/15/2015 Comp Metabolic Koy277 eGFR 74 ml/min/1.73m2 06/15/2015 Comp Metabolic Ldy335 BUN 15 mg/dL 06/15/2015 Comp Metabolic Wrd083 B/C Ratio 14.4 Ratio 06/15/2015 Comp Metabolic Arz421 CALCIUM 9.1 mg/dL 06/15/2015 Comp Metabolic Tbm695 ALK PHOS 30 U/L 06/15/2015 Comp Metabolic Cxo054 AST(SGOT) 20 U/L 06/15/2015 Comp Metabolic Zrf562 ALT(SGPT) 15 U/L 06/15/2015 Comp Metabolic Ava146 BILI T 1.0 mg/dL 06/15/2015 Comp Metabolic Juu880 ALBUMIN 4.0 g/dL 06/15/2015 Comp Metabolic Ifp159 TPRO 6.7 g/dL 06/15/2015 Comp Metabolic Mzo948 GLOB 2.7 g/dL 06/15/2015 Comp Metabolic Izw555 A/G Ratio 1.5 Ratio 06/15/2015 Comp Metabolic Obu532 Osmo 277 mOsmo 06/15/2015 Lipid Ord30 CHOL [...] 88.7 fl 06/15/2015 Cbc With Differential Ord2 Gordon% 14.5 % 06/15/2015 Cbc With Differential Ord2 [...] 1.33 K/ul 06/15/2015 Cbc With Differential Ord2 Gordon ABS# 0.6 K/ul 06/15/2015 Cbc With Differential Ord2 Eos ABS# 0.2 K/ul 06/15/2015 Cbc With Differential Ord2 Baso ABS# 0.0 K/ul 06/15/2015 Cbc With Differential Ord2 New Analyzer Notice Please note new ref ranges starting 03-16-2015 due to implemntation of new five part differential hematolgy analyzer. 06/15/2015 Tsh Ord6 hTSH II 2.01 uIU/mL 06/15/2015 VIT D TOTL 1485795 VIT D TOTL 57 NG/ML 12/14/2013 CHEM 14 5630403 AST 18 U/L 12/14/2013 CHEM 14 5474344 ALT 14 IU/L 12/14/2013 CHEM 14 8640730 BUN 19 MG/DL 12/14/2013 CHEM 14 3620205 ALBUMIN 4.2 GM/DL 12/14/2013 CHEM 14 8253777 CHLORIDE 106 MMOL/L 12/14/2013 CHEM 14 2601119 BILI TOT 0.9 MG/DL 12/14/2013 CHEM 14 5879881 ALK PHOS 30 U/L 12/14/2013 CHEM 14 4342761 SODIUM 140 MMOL/L 12/14/2013 CHEM 14 1552718 CREATININE 1.10 MG/DL 12/14/2013 CHEM 14 9638706 CALCIUM 9.4 MG/DL 12/14/2013 CHEM 14 7484983 POTASSIUM 4.1 MMOL/L 12/14/2013 CHEM 14 3376452 PROT TOT 6.9 GM/DL 12/14/2013 CHEM 14 0164939 GLUCOSE 91 MG/DL 12/14/2013 CHEM 14 6610429 BICARB 30 MMOL/L 12/14/2013 CHEM 14 1490582 ANION GAP 4 MEQ/L 12/14/2013 LIPID GRP HDL TEST 56 MG/DL 12/14/2013 LIPID GRP TRIG 56 MG/DL 12/14/2013 LIPID GRP TEST LDL 138 MG/DL 12/14/2013 LIPID GRP CHOL 205 MG/DL 12/14/2013 LIPID GRP RCHOL/HDL 3.66 RATIO 12/14/2013 LIPID GRP NON-HDL CH 149 MG/DL 12/14/2013 CBC 2187479 WBC 4.1 10e9/L 12/14/2013 CBC 5358531 RBC 4.90 10e12/L 12/14/2013 CBC 5589893 HGB 14.6 g/dL 12/14/2013 CBC 3237528 HCT DET 42.2 % 12/14/2013 CBC 9274384 MCV 86.1 fL 12/14/2013 CBC 1921261 MCH 29.8 pg 12/14/2013 CBC 8087037 MCHC 34.6 g/dL 12/14/2013 CBC 3880685 PLT 166 10e9/L 12/14/2013 CBC 6508620 MPV 9.0 fL 12/14/2013 CBC 8753744 LAUREL % 52.6 % 12/14/2013 CBC 1516275 LY % 31.6 % 12/14/2013 CBC 9433496 MON % 11.9 % 12/14/2013 CBC 6779845 EOS % 3.2 % 12/14/2013 CBC 1248954 BASO % 0.7 % 12/14/2013 CBC 3373082 RDW 13.6 % 12/14/2013 CBC 6035497 ABS LAUREL 2.16 10e9/L 12/14/2013 CBC 3857968 ABS LYMPH 1.30 10e9/L 12/14/2013 CBC 5702108 ABS MONO 0.49 10e9/L 12/14/2013 CBC 7256124 ABS EOS 0.13 10e9/L 12/14/2013 CBC 0002122 ABS BASO 0.03 10e9/L 12/14/2013 CBC 4582749 RDW-SD 41.7 fL 12/14/2013 GFR CALC 8995986 GFR AA >60 ML/MIN 12/14/2013 GFR CALC 3274951 GFR NON-AA >60 ML/MIN 12/14/2013 TSH 9114850 TSH 2.444 uIU/ML 12/14/2013 CHEM 14 1219624 AST 20 U/L 12/22/2012 CHEM 14 7492483 ALT 18 IU/L 12/22/2012 CHEM 14 3698468 BUN 20 MG/DL 12/22/2012 CHEM 14 1658755 ALBUMIN 4.1 GM/DL 12/22/2012 CHEM 14 1138722 CHLORIDE 105 MMOL/L 12/22/2012 CHEM 14 3671658 BILI TOT 1.1 MG/DL 12/22/2012 CHEM 14 5824444 ALK PHOS 31 U/L 12/22/2012 CHEM 14 5449250 SODIUM 138 MMOL/L 12/22/2012 CHEM 14 3417214 CREATININE 1.07 MG/DL 12/22/2012 CHEM 14 7197693 CALCIUM 9.3 MG/DL 12/22/2012 CHEM 14 7278825 POTASSIUM 4.2 MMOL/L 12/22/2012 CHEM 14 4040693 PROT TOT 6.9 GM/DL 12/22/2012 CHEM 14 3148583 GLUCOSE 86 MG/DL 12/22/2012 CHEM 14 9646507 BICARB 30 MMOL/L 12/22/2012 CHEM 14 6475902 ANION GAP 3 MEQ/L 12/22/2012 TSH 4668098 TSH 1.886 uIU/ML 12/22/2012 GFR CALC 9243084 GFR AA >60 ML/MIN 12/22/2012 GFR CALC 1660702 GFR NON-AA >60 ML/MIN 12/22/2012 LIPID GRP HDL TEST 48 MG/DL 12/22/2012 LIPID GRP TRIG 60 MG/DL 12/22/2012 LIPID GRP TEST LDL 121 MG/DL 12/22/2012 LIPID GRP 1609285 CHOL 181 MG/DL 12/22/2012 LIPID GRP RCHOL/HDL 3.77 RATIO 12/22/2012 CBC 9790707 WBC 4.1 10e9/L 12/22/2012 CBC 3617666 RBC 4.67 10e12/L 12/22/2012 CBC 0936744 HGB 14.1 g/dL 12/22/2012 CBC 1708944 HCT DET 40.6 % 12/22/2012 CBC 3286817 MCV 86.9 fL 12/22/2012 CBC 6577770 MCH 30.2 pg 12/22/2012 CBC 2726244 MCHC 34.7 g/dL 12/22/2012 CBC 2465646 PLT 170 10e9/L 12/22/2012 CBC 7734502 MPV 9.1 fL 12/22/2012 CBC 1229516 LAUREL % 49.2 % 12/22/2012 CBC 5126191 LY % 34.8 % 12/22/2012 CBC 8722135 MON % 12.1 % 12/22/2012 CBC 3707078 EOS % 3.4 % 12/22/2012 CBC 9845879 BASO % 0.5 % 12/22/2012 CBC 9750568 RDW 13.8 % 12/22/2012 CBC 3239514 ABS LAUREL 2.02 10e9/L 12/22/2012 CBC 0573975 ABS LYMPH 1.43 10e9/L 12/22/2012 CBC 7754079 ABS MONO 0.50 10e9/L 12/22/2012 CBC 6152654 ABS EOS 0.14 10e9/L 12/22/2012 CBC 1638279 ABS BASO 0.02 10e9/L 12/22/2012 CBC 8530003 RDW-SD 43.0 fL 12/22/2012 LIPID GRP HDL TEST 52 MG/DL 09/25/2011 LIPID GRP TRIG 48 MG/DL 09/25/2011 LIPID GRP TEST LDL 128 MG/DL 09/25/2011 LIPID GRP CHOL 190 MG/DL 09/25/2011 LIPID GRP RCHOL/HDL 3.65 RATIO 09/25/2011 TSH 3041088 TSH 1.923 uIU/ML 09/25/2011 GFR CALC 7737316 GFR AA >60 ML/MIN 09/25/2011 GFR CALC 3332922 GFR NON-AA >60 ML/MIN 09/25/2011 CHEM 14 20270906 AST 16 U/L 09/25/2011 CHEM 14 6951089 ALT 12 IU/L 09/25/2011 CHEM 14 20270906 BUN 28 MG/DL 09/25/2011 CHEM 14 20270906 ALBUMIN 4.2 GM/DL 09/25/2011 CHEM 14 5151290 CHLORIDE 105 MMOL/L 09/25/2011 CHEM 14 2168116 BILI TOT 0.9 MG/DL 09/25/2011 CHEM 14 6456662 ALK PHOS 35 U/L 09/25/2011 CHEM 14 7642829 SODIUM 138 MMOL/L 09/25/2011 CHEM 14 3555405 CREATININE 1.02 MG/DL 09/25/2011 CHEM 14 0289126 CALCIUM 9.2 MG/DL 09/25/2011 CHEM 14 8017954 POTASSIUM 4.1 MMOL/L 09/25/2011 CHEM 14 9737134 PROT TOT 6.7 GM/DL 09/25/2011 CHEM 14 6068356 GLUCOSE 85 MG/DL 09/25/2011 CHEM 14 0123501 BICARB 29 MMOL/L 09/25/2011 CHEM 14 8569780 ANION GAP 4 MEQ/L 09/25/2011 CBC 2269778 WBC 4.1 10e9/L 09/25/2011 CBC 4787685 RBC 4.71 10e12/L 09/25/2011 CBC 0805263 HGB 14.0 g/dL 09/25/2011 CBC 7232206 HCT DET 40.3 % 09/25/2011 CBC 4882746 MCV 85.6 fL 09/25/2011 CBC 9445434 MCH 29.7 pg 09/25/2011 CBC 9516225 MCHC 34.7 g/dL 09/25/2011 CBC 0792168 PLT 148 10e9/L 09/25/2011 CBC 2045837 MPV 9.1 fL 09/25/2011 CBC 3853704 LAUREL % 48.6 % 09/25/2011 CBC 7258142 LY % 36.6 % 09/25/2011 CBC 9710698 MON % 11.2 % 09/25/2011 CBC 3249892 EOS % 3.4 % 09/25/2011 CBC 9540687 BASO % 0.2 % 09/25/2011 CBC 2758787 RDW 13.2 % 09/25/2011 CBC 4232084 ABS LAUREL 1.99 10e9/L 09/25/2011 CBC 8076715 ABS LYMPH 1.50 10e9/L 09/25/2011 CBC 3769914 ABS MONO 0.46 10e9/L 09/25/2011 CBC 9945330 ABS EOS 0.14 10e9/L 09/25/2011 CBC 4647512 ABS BASO 0.01 10e9/L 09/25/2011 CBC 6217928 RDW-SD 40.9 fL 09/25/2011 Review of Systems System Result Effective Dates Constitutional recent illness 10/18/2017 Constitutional anorexia 10/18/2017 [...] distress 05/26/2012 None Full Exam - General 1995 Constitutional general appearance Overall: well nourished 05/26/2012 [...] 1994 Ears/Nose/Throat oral cavity/pharynx/larynx Overall: no masses 05/26/2012 [...] nourished 11/27/2011 None Full Exam - General 1995 Constitutional general appearance Overall: well developed 11/27/2011 None Full Exam - General 1995 Constitutional [...] 10/02/2011 dry, rough, scaly lesion to left jainism, right jainism, bridge of left nose x 2-removed using [...] -4: G0439 01/23/2016 DESTRUCT PREMALG LESION CPT-4: 61449 10/02/2011 DESTRUCT PREMALG LES 2-14 CPT-4: 12360 10/02/2011 Vital Signs Date Vital 10/18/2017 Blood Pressure 1: 146/78 Code : 8480-6 BMI: 27.2 Code : 24501-6 Heart Rate 1 : 65 bpm Height: 5'9" SpO2: 96% Weight: 184 lbs 09/10/2017 Blood Pressure 1: 122/80 Code : 8480-6 BMI: 27.2 Code : 27820-7 Heart Rate 1 : 68 bpm Height: 5'9" SpO2: 96% Weight: 184 lbs 5 oz 03/14/2017 Blood Pressure 1: 128/80 Code : 8480-6 BMI: 28.1 Code : 23798-4 Heart Rate 1 : 63 bpm Height: 5'9" SpO2: 99% Weight: 190 lbs 09/11/2016 Blood Pressure 1: 120/70 Code : 8480-6 BMI: 28.2 Code : 31043-4 Heart Rate 1 : 56 bpm Height: 5'9" SpO2: 97% Weight: 191 lbs 03/07/2016 Blood Pressure 1: 124/66 Code : 8480-6 BMI: 27.3 Code : 42113-5 Heart Rate 1 : 64 bpm Height: 5'9" SpO2: 98% Weight: 185 lbs 01/23/2016 Blood Pressure 1: 140/66 Code : 8480-6 BMI: 27.2 Code : 70628-0 Heart Rate 1 : 55 bpm Height: 5'9" SpO2: 98% Waist Measure (cm): 86 cm Weight: 184 lbs 11/09/2015 Blood Pressure 1: 132/80 Code : 8480-6 BMI: 26.9 Code : 63627-9 Heart Rate 1 : 60 bpm Height: 5'9" SpO2: 98% Weight: 182 lbs 08/09/2015 Blood Pressure 1: 122/72 Code : 8480-6 BMI: 27.0 Code : 06891-1 Heart Rate 1 : 61 bpm Height: 5'9" SpO2: 98% Weight: 182 lbs 8 oz 07/04/2015 Blood Pressure 1: 132/80 Code : 8480-6 BMI: 27.0 Code : 23217-6 Heart Rate 1 : 52 bpm Height: 5'9" SpO2: 98% Weight: 183 lbs 06/30/2015 Blood Pressure 1: 162/88 Code : 8480-6 Heart Rate 1: 58 bpm 06/14/2015 Blood Pressure 1: 170/96 Code : 8480-6 BMI: 27.3 Code : 84952-2 Heart Rate 1 : 55 bpm Height: 5'9" SpO2: 98% Weight: 185 lbs 03/14/2015 Blood Pressure 1: 152/80 Code : 8480-6 Blood Pressure 1: 136/82 Code: 8480-6 BMI: 27.5 Code: 50740-2 Heart Rate 1: 56 bpm Height: 5'9" SpO2: 98% Weight: 186 lbs 12/13/2014 Blood Pressure 1: 138/80 Code : 8480-6 BMI: 27.0 Code : 60796-5 Heart Rate 1 : 70 bpm Height: 5'9" Weight: 183 lbs 11/16/2014 Blood Pressure 1: 130/70 Code : 8480-6 Heart Rate 1: 64 bpm Height: Weight: 09/09/2014 Blood Pressure 1: 140/90 Code : 8480-6 BMI: 26.3 Code : 04866-5 Heart Rate 1 : 78 bpm Height: 5'9" Weight: 178 lbs 08/25/2014 Blood Pressure 1: 160/90 Code : 8480-6 BMI: 26.3 Code : 32547-5 Heart Rate 1 : 79 bpm Height: 5'9" SpO2: 97% Weight: 178 lbs 06/10/2014 Blood Pressure 1: 142/88 Code : 8480-6 BMI: 26.7 Code : 25491-5 Heart Rate 1 : 63 bpm Height: 5'9" SpO2: 97% Weight: 181 lbs 12/03/2013 Blood Pressure 1: 138/78 Code : 8480-6 BMI: 26.0 Code : 33620-2 Heart Rate 1 : 68 bpm Height: 5'9" SpO2: 98% Weight: 176 lbs 05/25/2013 Blood Pressure 1: 152/84 Code : 8480-6 Blood Pressure 2: 138/86 Code: 8480-6 BMI: 26.1 Code: 82746-5 Heart Rate 1: 80 bpm Height: 5'9" Weight: 177 lbs 11/24/2012 Blood Pressure 1: 124/68 Code : 8480-6 BMI: 25.4 Code : 69005-6 Heart Rate 1 : 80 bpm Height: 5'9" Weight: 172 lbs 05/26/2012 Blood Pressure 1: 120/58 Code : 8480-6 BMI: 26.1 Code : 37043-1 Heart Rate 1 : 72 bpm Height: 5'9" Respiratory Rate: 16 bpm Weight: 177 lbs 11/27/2011 Blood Pressure 1: 116/68 Code : 8480-6 BMI: 25.5 Code : 36184-6 Heart Rate 1 : 60 bpm Height: 5'9" Respiratory Rate: 16 bpm Weight: 172 lbs 8 oz 10/02/2011 Blood Pressure 1: 134/74 Code : 8480-6 Heart Rate 1: 60 bpm 09/20/2011 Blood Pressure 1: 116/60 Code : 8480-6 BMI: 25.1 Code : 82481-6 Heart Rate 1 : 80 bpm Height: 5'9" SpO2: 98% Weight: 170 lbs Functional Status No Functional Status data History of Present Illness Symptom Name Status Result Effective Date Notes neck pain Location diffusely 10/18/2017 None neck [...] data Encounters Encounter Performer Location Codes Date ([id number]) [id number] EST. PATIENT, LEVEL III Diagnosis: Gastro-esophageal reflux disease without esophagitis[ICD10: K21.9] Diagnosis: Cervicalgia[ICD10: M54.2] Michelle Chau MD, [facility] CPT-4: 78483 10/18/2017 [id number]) [id number] EST. PATIENT, LEVEL IV Diagnosis: Essential (primary) hypertension[ICD10: I10] Diagnosis: Essential tremor[ICD10: G25.0] [facility] CPT- 4: 22759 09/10/2017 [id number]) [id number] EST. PATIENT, LEVEL IV Diagnosis: Essential (primary) hypertension[ICD10: I10] Diagnosis: Essential tremor[ICD10: G25.0] Bernadette Chau MD, [facility] CPT- 4: 04402 03/14/2017 ([id number]) 86803 EST. PATIENT, LEVEL IV Diagnosis: Essential (primary) hypertension[ICD10: I10] Diagnosis: Essential tremor[ICD10: G25.0] Bernadette Chau MD [facility] CPT- 4: 41097 09/11/2016 ([id number]) 68256 EST. PATIENT, LEVEL IV Diagnosis: Essential (primary) hypertension[ICD10: I10] Diagnosis: Essential tremor[ICD10: G25.0] Bernadette Chau MD [facility] CPT- 4: 74976 03/07/2016 ([id number]) 36727 EST. PATIENT, LEVEL III Diagnosis: Essential (primary) hypertension[ICD10: I10] Diagnosis: Essential tremor[ICD10: G25.0] Bernadette Chau MD [facility] CPT- 4: 78350 11/09/2015 ([id number]) 00700 EST. PATIENT, LEVEL III Diagnosis: Essential (primary) hypertension[ICD10: I10] Bernadette Chau MD [facility] CPT-4: 78739 08/09/2015 ([id number]) 24510 EST. PATIENT, LEVEL III Diagnosis: Essential (primary) hypertension[ICD10: I10] Bernadette Chau MD [facility] CPT-4: 25959 07/04/2015 ([id number]) Miscellaneous no charge Diagnosis: Essential (primary) hypertension[ICD10: I10] Bernadette Chau MD [facility] CPT-4: 73766 06/30/2015 ([id number]) 55682 EST. PATIENT, LEVEL IV Diagnosis: Essential (primary) hypertension[ICD10: I10] Diagnosis: Male erectile disorder[ICD10: F52.21] Diagnosis: Gastro-esophageal reflux disease without esophagitis[ICD10: K21.9] Bernadette Chau MD [facility] CPT-4: 68996 06/14/2015 ([id number]) 38651 EST. PATIENT, LEVEL IV Diagnosis: Essential (primary) hypertension[ICD10: I10] Diagnosis: Low back pain[ICD10: M54.5] Diagnosis: Malignant neoplasm of prostate[ICD10: C61] Bernadette Chau MD [facility] CPT-4: 30319 03/14/2015 ([id number]) 42395 EST. PATIENT, LEVEL III Diagnosis: Essential (primary) hypertension[ICD10: I10] Bernadette Chau MD [facility] CPT-4: 38480 12/13/2014 ([id number]) 17497 EST. PATIENT, LEVEL II Diagnosis: ESSENTIAL HYPERTENSION[ICD9: 401.9] CRISTIANO Cowan MD CPT-4: 60907 11/16/2014 ([id number]) 01458 EST. PATIENT, LEVEL III Diagnosis: ESSENTIAL HYPERTENSION[ICD9: 401.9] Diagnosis: GENERALIZED ANXIETY DISEASE[ICD9: 300.02] Bernadette Chau MD [facility] CPT-4: 04627 09/09/2014 ([id number]) 28129 EST. PATIENT, LEVEL IV Diagnosis: ESSENTIAL HYPERTENSION[ICD9: 401.9] Diagnosis: GENERALIZED ANXIETY DISEASE[ICD9: 300.02] Bernadette Chau MD [facility] CPT-4: 02219 08/25/2014 ([id number]) 12257 EST. PATIENT, LEVEL IV Diagnosis: ESSENTIAL HYPERTENSION[ICD9: 401.9] Diagnosis: GENERALIZED ANXIETY DISEASE[ICD9: 300.02] Diagnosis: ESOPHAGEAL REFLUX[ICD9: 530.81] Bernadette Chau MD [facility] CPT- 4: 04676 06/10/2014 ([id number]) 29484 EST. PATIENT, LEVEL IV Diagnosis: ESSENTIAL HYPERTENSION[ICD9: 401.9] Diagnosis: ESOPHAGEAL REFLUX[ICD9: 530.81] Bernadette Chau MD [facility] CPT- 4: 72383 12/03/2013 ([id number]) 12409 EST. 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 PATIENT, LEVEL IV Diagnosis: ESSENTIAL HYPERTENSION[SNOMED: 94775966] Diagnosis: Nausea[ICD9: 787.02] Diagnosis: ESOPHAGEAL REFLUX[ICD9: 530.81] [facility] CPT- 4: 82212 11/24/2012 ([id number]) 82074 EST. 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 PATIENT, LEVEL III Diagnosis: ESSENTIAL HYPERTENSION[SNOMED: 16321364] [facility] CPT-4: 15592 11/27/2011 ([id number]) OFFICE VISIT, NEW - LEVEL 3 Diagnosis: ESSENTIAL HYPERTENSION[SNOMED: 46857652] Diagnosis: Impotence[ICD9: 607.84] Diagnosis: Osteoarthritis[ICD9: 715.90] [facility] CPT- 4: 01853 09/20/2011 Plan of Care Planned Activity Notes Codes Status Date Visit Plan: Esophageal Reflux - the patient [...] exercises daily. 10/18/2017 Appointment: Michelle Dutton WPtel: [address] [place], [place] [phone] (30 min) [facility] 10/18/2017 Patient Education: Patient Medication Summary Completed [...] worsen. 09/10/2017 [facility]ment[phone] [facility] ([facility] min) Moderate 09/10/2017 Patient [...] care. 03/14/2017 Appointment: Bernadette Chau WPtel: [phone] [facility] (15 min) Moderate 03/14/2017 Patient Education: Patient [...] this time 09/11/2016 Appointment[phone] (15 min) Moderate 09/11/2016 Patient [...] symptoms. 03/07/2016 Appointment[phone] [facility] (15 min) Moderate 03/07/2016 Patient Education: Patient [...] care surrogate. 01/23/2016 Appointment: Kelly Mancera WPtel: [phone] [facility] [facility] - Annual Wellness Visit 01/23/2016 Patient Education: [...] tremor. 11/09/2015 Appointment: Bernadette Chau WPtel: [facility] (15 min) Moderate 11/09/2015 Patient Education: Patient [...] home. 08/09/2015 Appointment: [phone] [facility] (15 min) Moderate 08/09/2015 Patient [...] concerns. 07/04/2015 Appointment: [facility] [phone] [facility] (15 min) Moderate 07/04/2015 Patient Education: Patient [...] improving. 06/14/2015 Appointment: [facility] [phone] [facility] (30 min) Complex 06/14/2015 Patient Education: Patient [...] and sacrum. 03/14/2015 Appointment: Bernadette Chau WPtel: [facility] (15 min) Moderate 03/14/2015 Patient Education: [...] daily. 12/13/2014 Appointment: Bernadette Chau WPtel: [facility] (15 min) Moderate 12/13/2014 Patient Education: Patient Medication Summary Completed 12/13/2014 Patient Education: Hypertension Completed 12/13/2014 Appointment: Bernadette Chau WPtel: [facility] [facility] 12/09/2014 Visit Plan: [...] improving. 09/09/2014 Appointment: [facility] [phone] [facility] (15 min) Moderate 09/09/2014 Patient [...] concerns. 08/25/2014 Appointment: [facility] [phone] [facility] (10 min) Simple 08/25/2014 Patient [...] cialis. 06/10/2014 Appointment: [facility] [phone] [facility] Follow [facility] 06/10/2014 Patient Education: [...] at home. 12/03/2013 Appointment: Bernadette Chau WPtel: [facility] Follow [facility] 12/03/2013 Patient Education: Patient Medication [...] of cialis 05/25/2013 Appointment: Bernadette Chau WPtel: [address] [place], [place] [address] Follow up 05/25/2013 Patient Education: Patient Medication [...] improving. 11/24/2012 Appointment: Bernadette Chau WPtel: [facility] [place] Follow up 11/24/2012 Patient Education: Patient [...] daily. 05/26/2012 Appointment: [facility]el[facility] [phone] [facility] Established Patient Preventative visit 05/26/2012 Patient Education: [...] at home. 11/27/2011 Appointment: [facility] [phone] [facility] Follow [facility] 11/27/2011 Patient Education: Patient Medication Summary Completed 11/27/2011 Patient Education: High Blood Pressure: Essential Hypertension Completed 2011 Visit Plan: Wound Instructions - Pt was instruced to keep the wound clean, wash with antibacterial soap, use triple antibiotic ointment, call if redness, pustular drainage, or any other acute conerns. 10/02/2011 App[facility]ment: [phone] [phone] [facility] 10/02/2011 Patient Education: Patient Medication [...] pain symptoms. 09/20/2011 Appointment: [facility]el[facility] [phone] [facility] [place] New Patient 09/20/2011 Patient [...] home. Tremor - continue supportive care. . Hypertension - well controlled - continue [...] blood pressure readings at home. Declined Procedure: ([id number]) FLU VACC 4 WILVER 3 YRS PLUS [...]
--- OUTSIDE RECORDS SUMMARY | 2018-01-04 00:45 | XMS REPORT | CCD ---
Author Author Bernadette Chau Organization Bernadette Chau MD, [facility] Address [address] [place] [address] Phone Care Team Providers Care Waistline Joiner Overlock Name Role Phone PP Unavailable CCM Unavailable Summary Purpose Interface Exchange Insurance Providers Payer name Policy type / Coverage type Covered green party ID Effective Begin Date Effective End Date WPS Medicare Part B Medicare Part B [id number] 2017 Unknown [facility] Medicare Part B [id number] Unknown Family history Uncle Diagnosis Age At [...] Unknown Retired 09/20/[address]: 345399155 Nonsmoker smoked for 2-3 years in 20's, used smokeless tobacco for 40 yrs 09/20/[address]: 2311939 Former smoker quit 1965 09/20/2011 Alcohol history [...] Start Date Stop Date Status Fill Instructions Dexilant 60 mg capsule, delayed release RxNorm: 565742 1 Capsule(s) PO daily 10/18/2017 No Stop Date Active tramadol 50 mg tablet RxNorm: 353614 1 Tablet(s) PO TID PRN 10/24/2017 Active hydrochlorothiazide 25 mg tablet RxNorm: 285053 TAKE 1 TABLET BY MOUTH IN THE MORNING 09/30/2017 04/27/2018 Active Generic For:HYDRODIURIL 25 MG TABLET 2017 11:36:14 AM Sinemet 10 mg-100 mg tablet RxNorm: 917382 1 Tablet(s) PO BID morning and early afternoon 09/10/2017 04/07/2018 Active potassium chloride ER 10 mEq capsule,extended release RxNorm: 735168 1 Capsule(s) PO TIW 07/22/2017 06/22/2018 Active buspirone 15 mg tablet RxNorm: 852981 Tablet(s) Take 1 pill in the morning, 1/2 pill at 1 or 2pm and 1 pill at bedtime 05/08/2017 09/28/2017 Inactive doxazosin 1 mg tablet RxNorm: 257430 TAKE 1/2 (ONE- HALF) TABLET TWICE DAILY 04/10/2017 11/05/2017 Active Generic For:CARDURA 1MG 04/10/2017 1:06:52 PM carvedilol 12.5 mg tablet RxNorm: 957262 Tablet(s) TAKE 1 TABLET BY MOUTH TWICE DAILY 04/10/2017 11/05/2017 Active hydrochlorothiazide 25 mg tablet RxNorm: 979311 TAKE 1 TABLET BY MOUTH IN THE MORNING 03/05/2017 09/29/2017 Inactive Generic For:HYDRODIURIL 25 MG TABLET 2017 10:38:53 AM buspirone 15 mg tablet RxNorm: 897411 Tablet(s) Take 1 pill in the morning, 1/2 pill at 1 or 2pm and 1 pill at bedtime 12/06/2016 04/28/2017 Inactive doxazosin 1 mg tablet RxNorm: 254172 1/2 Tablet(s) PO BID 201604/09/2017 Inactive lisinopril 40 mg tablet RxNorm: 839687 TAKE 1/2 TABLET BY MOUTH TWICE DAILY 09/18/2016 09/12/2017 Inactive Generic For:ZESTRIL 40MG 09/18/2016 9:08:05 AM carvedilol 12.5 mg tablet RxNorm: 257338 Tablet(s) TAKE 1 TABLET BY MOUTH TWICE DAILY 09/14/2016 04/09/2017 Inactive potassium chloride ER 10 mEq capsule,extended release RxNorm: 434881 1 Capsule(s) PO TIW 08/14/2016 07/15/2017 Inactive hydrochlorothiazide 25 mg tablet RxNorm: 699926 TAKE 1 TABLET BY MOUTH IN THE MORNING 08/06/2016 03/03/2017 Inactive Generic For:HYDRODIURIL 25 MG TABLET 2016 9:47:38 AM doxazosin 1 mg tablet RxNorm: 727633 1/2 Tablet(s) PO BID 201611/11/2016 Inactive fexofenadine 180 mg tablet RxNorm: 171325 1 Tablet(s) PO daily 04/05/2016 10/01/2016 Inactive fexofenadine 180 mg tablet RxNorm: 960583 1 Tablet(s) PO daily 04/05/2016 04/04/2016 Inactive buspirone 15 mg tablet RxNorm: 609858 Tablet(s) Tablet(s) take 1 pill in the morning, 1/2 pill at 1 or 2pm and 1 pill at bedtime 201609/07/2016 Inactive Generic For:BUSPAR 15MG 08/19/2014 9:29:55 AM carvedilol 12.5 mg tablet RxNorm: 832737 Tablet(s) TAKE 1 TABLET BY MOUTH TWICE DAILY 02/14/2016 09/10/2016 Inactive potassium chloride ER 10 mEq capsule,extended release RxNorm: 216346 1 Capsule(s) PO TIW 02/08/2016 08/13/2016 Inactive hydrochlorothiazide 25 mg tablet RxNorm: 165247 1 Tablet(s) PO QAM 01/09/2016 08/05/2016 Inactive carvedilol 12.5 mg tablet RxNorm: 860552 TAKE 1 TABLET BY MOUTH TWICE DAILY 10/18/2015 02/13/2016 Inactive Generic For:COREG 12.5MG 10/17/2015 1:04:24 PM lisinopril 40 mg tablet RxNorm: 795303 1/2 Tablet(s) PO BID 08/15/2016 Inactive Generic For:ZESTRIL 20MG 07/21/2014 9:29:18 AM doxazosin 1 mg tablet RxNorm: 803414 1/2 Tablet(s) PO BID 201510/31/2015 Inactive this is FYI for now - and will remain this in the future, does not need a fill right now doxazosin 1 mg tablet RxNorm: 250931 1 Tablet(s) PO BID 201506/29/2015 Inactive doxazosin 1 mg tablet RxNorm: 932829 1 Tablet(s) PO BID 201507/03/2015 Inactive potassium chloride ER 10 mEq capsule,extended release RxNorm: 797774 1 Capsule(s) PO TIW 06/14/2015 01/09/2016 Inactive hydrochlorothiazide 25 mg tablet RxNorm: 899996 1 Tablet(s) PO QAM 06/14/2015 01/08/2016 Inactive buspirone 15 mg tablet RxNorm: 923256 Tablet(s) take 1 pill in the morning, 1/2 pill at 1 or 2pm and 1 pill at bedtime 06/13/2015 12/09/2015 Inactive Generic For: BUSPAR 15MG 08/19/2014 9:29:55 AM carvedilol 12.5 mg tablet RxNorm: 055409 TAKE 1 TABLET BY MOUTH TWICE DAILY 05/20/2015 09/16/2015 Inactive Generic For:COREG 12.5MG 05/20/2015 9:04:34 AM carvedilol 12.5 mg tablet RxNorm: 371037 Tablet(s) 1 Tablet(s) PO BID 05/20/2015 05/19/2015 Inactive carvedilol 12.5 mg tablet RxNorm: 273470 1 Tablet(s) PO BID 05/19/2015 Inactive spironolactone 50 mg tablet RxNorm: 411343 1 Tablet(s) PO QAM 12/13/2014 06/13/2015 Inactive carvedilol 12.5 mg tablet RxNorm: 672943 1 Tablet(s) PO BID 01/11/2015 Inactive spironolactone 25 mg tablet RxNorm: 023637 1 Tablet(s) PO QAM 09/13/2014 12/12/2014 Inactive spironolactone 25 mg tablet RxNorm: 307535 1 Tablet(s) PO QAM 09/13/2014 09/12/2014 Inactive buspirone 15 mg tablet RxNorm: 330974 Tablet(s) take 1 pill in the morning, 1/2 pill at 1 or 2pm and 1 pill at bedtime 09/09/2014 03/07/2015 Inactive Generic For: BUSPAR 15MG 08/19/2014 9:29:55 AM lisinopril 40 mg tablet RxNorm: 275874 1/2 Tablet(s) PO BID 08/19/2015 Inactive Generic For:ZESTRIL 20MG 07/21/2014 9:29:18 AM Coreg 6.25 mg tablet RxNorm: 428022 1 Tablet(s) PO BID 201409/13/2014 Inactive buspirone 15 mg tablet RxNorm: 873556 TAKE 1 TABLET BY MOUTH TWICE DAILY 08/19/2014 09/08/2014 Inactive Generic For:BUSPAR 15MG 08/19/2014 9:29:55 AM lisinopril 20 mg tablet RxNorm: 724806 1 Tablet(s) PO daily TAKE 1 TABLET BY MOUTH ONCE DAILY. 07/21/2014 07/20/2014 Inactive Generic For:*ZESTRIL 20MG Generic For:*ZESTRIL 20MG 07/29/2013 11:19:45 AM lisinopril 20 mg tablet RxNorm: 279393 TAKE 1 TABLET BY MOUTH ONCE DAILY. 07/21/2014 08/24/2014 Inactive Generic For:ZESTRIL 20MG 07/21/2014 9:29:18 AM buspirone 15 mg tablet RxNorm: 385771 1 Tablet(s) BID 1 Tablet(s) PO BID 06/21/2014 08/18/2014 Inactive Tamiflu 75 mg capsule RxNorm: 295851 1 Capsule(s) PO daily 03/1203/11/2014 Inactive Tamiflu 75 mg capsule RxNorm: 783708 1 Capsule(s) PO daily 03/1203/21/2014 Inactive buspirone 15 mg tablet RxNorm: 534792 1 Tablet(s) BID 1 Tablet(s) PO BID 02/16/2014 06/20/2014 Inactive buspirone 15 mg tablet RxNorm: 114287 1 Tablet(s) PO BID 201302/15/2014 Inactive lisinopril 20 mg tablet RxNorm: 492413 Tablet(s) PO TAKE 1 TABLET BY MOUTH ONCE DAILY. 07/30/2013 07/20/2014 Inactive Generic For:*ZESTRIL 20MG Generic For:* ZESTRIL 20MG 07/29/2013 11:19:45 AM buspirone 15 mg tablet RxNorm: 757856 1 Tablet(s) PO BID 201310/18/2013 Inactive Zithromax 250 mg tablet RxNorm: 072565 Tablet(s) PO 03/18/2013 06/13/2015 Inactive as directed buspirone 15 mg tablet RxNorm: 054027 Tablet(s) PO TAKE 1 TABLET AT BEDTIME AND TAKE 1/2 A TABLET TWICE A DAY 12/22/2012 05/24/2013 Inactive buspirone 15 mg tablet RxNorm: 976282 1 at hs 1/2 bid Tablet(s) PO daily 11/27/2012 No Stop Date Active buspirone 15 mg tablet RxNorm: 662849 Tablet(s) PO daily 201211/26/2012 Inactive 1 q hs and 1/2 daily buspirone 15 mg tablet RxNorm: 209209 Tablet(s) PO daily 2012 No Stop Date Active 1 q hs and 1/2 daily buspirone 15 mg tablet RxNorm: 237996 Tablet(s) PO daily 201210/26/2012 Inactive 1 q hs and 1/2 daily lisinopril 20 mg tablet RxNorm: 146293 Tablet(s) PO TAKE 1 TABLET BY MOUTH ONCE DAILY. 08/05/2012 07/29/2013 Inactive lisinopril 20 mg tablet RxNorm: 274617 Tablet(s) PO TAKE 1 TABLET BY MOUTH ONCE DAILY. 07/07/2012 08/04/2012 Inactive lisinopril 20 mg tablet RxNorm: 834364 Tablet(s) PO 01/07/2012 07/06/2012 Inactive TAKE 1 TABLET BY MOUTH ONCE DAILY. lisinopril 20 mg tablet RxNorm: 887055 Tablet(s) PO 12/10/2011 01/06/2012 Inactive TAKE 1 TABLET BY MOUTH ONCE DAILY. lisinopril 20 mg tablet RxNorm: 549610 1 Tablet(s) PO daily 01/201212/09/2011 Inactive can have #90 if prefers lisinopril 20 mg tablet RxNorm: 551666 1 Tablet(s) PO daily 01/201211/12/2011 Inactive can have #90 if prefers buspirone 15 mg tablet RxNorm: 948203 Tablet(s) PO daily 201110/26/2012 Inactive 1 q hs and 1/2 daily Calcium 600 + D(3) oral RxNorm: 073460 oral No Start Date Active Fish Oil Concentrate Oral RxNorm: Oral No Start Date Active Centrum Silver Oral RxNorm: Oral No Start Date Active Zithromax 250 mg tablet RxNorm: 758676 Tablet(s) PO No Start Date 03/17/2013 Inactive as directed lisinopril 20 mg tablet RxNorm: 145479 1 Tablet(s) PO daily No Start Date 11/16/2014 Inactive buspirone 15 mg tablet RxNorm: 573904 1 Tablet(s) PO daily No Start Date 09/24/2011 Inactive B Complex 1 Oral RxNorm: Oral No Start Date 06/13/2015 Inactive lisinopril 20 mg tablet RxNorm: 703831 1 Tablet(s) PO daily No Start Date [...] 88.8 fl 03/08/2016 Cbc With Differential Ord2 [place]% 10.8 % 03/08/2016 Cbc With Differential Ord2 [...] 1.66 K/ul 03/08/2016 Cbc With Differential Ord2 [place] ABS# 0.5 K/ul 03/08/2016 Cbc With Differential Ord2 Eos ABS# 0.1 K/ul 03/08/2016 Cbc With Differential Ord2 Baso ABS# 0.1 K/ul 03/08/2016 Comp Metabolic Vnz815 NA 137 mEq/L 03/08/2016 Comp Metabolic Jsx218 K 3.8 mEq/L 03/08/2016 Comp Metabolic Ctr654 CL 100 mEq/L 03/08/2016 Comp Metabolic Jok850 CO2 32.0 mEq/L 03/08/2016 Comp Metabolic Vpr584 ANION GAP 9 03/08/2016 Comp Metabolic Jqo527 GLUCOSE 88 mg/dL 03/08/2016 Comp Metabolic Iqn368 Creat 1.1 mg/dL 03/08/2016 Comp Metabolic Jmg732 eGFR 67 ml/min/1.73m2 03/08/2016 Comp Metabolic Puj136 BUN 17 mg/dL 03/08/2016 Comp Metabolic Cet293 B/C Ratio 15.0 Ratio 03/08/2016 Comp Metabolic Nvu977 CALCIUM 9.2 mg/dL 03/08/2016 Comp Metabolic Quk540 ALK PHOS 43 U/L 03/08/2016 Comp Metabolic Qth069 AST(SGOT) 19 U/L 03/08/2016 Comp Metabolic Smi380 ALT(SGPT) 17 U/L 03/08/2016 Comp Metabolic Ybc002 BILI T 1.1 mg/dL 03/08/2016 Comp Metabolic Mpm898 ALBUMIN 4.2 g/dL 03/08/2016 Comp Metabolic Khu981 TPRO 7.1 g/dL 03/08/2016 Comp Metabolic Ysu255 GLOB 2.9 g/dL 03/08/2016 Comp Metabolic Ftj984 A/G Ratio 1.5 Ratio 03/08/2016 Comp Metabolic Lsa312 Osmo 275 mOsmo 03/08/2016 Tsh Ord6 hTSH II 2.21 uIU/mL 03/08/2016 Comp Metabolic Gmy408 NA 139 mEq/L 06/15/2015 Comp Metabolic Nkd464 K 4.0 mEq/L 06/15/2015 Comp Metabolic Fat809 CL 103 mEq/L 06/15/2015 Comp Metabolic Pfn525 CO2 28.0 mEq/L 06/15/2015 Comp Metabolic Rys172 ANION GAP 12 06/15/2015 Comp Metabolic Kmy869 GLUCOSE 79 mg/dL 06/15/2015 Comp Metabolic Swv773 Creat 1.0 mg/dL 06/15/2015 Comp Metabolic Eey580 eGFR 74 ml/min/1.73m2 06/15/2015 Comp Metabolic Liu597 BUN 15 mg/dL 06/15/2015 Comp Metabolic Sqv329 B/C Ratio 14.4 Ratio 06/15/2015 Comp Metabolic Hpj187 CALCIUM 9.1 mg/dL 06/15/2015 Comp Metabolic Blg214 ALK PHOS 30 U/L 06/15/2015 Comp Metabolic Yhg743 AST(SGOT) 20 U/L 06/15/2015 Comp Metabolic Aol991 ALT(SGPT) 15 U/L 06/15/2015 Comp Metabolic Hvo624 BILI T 1.0 mg/dL 06/15/2015 Comp Metabolic Sre093 ALBUMIN 4.0 g/dL 06/15/2015 Comp Metabolic Mvq806 TPRO 6.7 g/dL 06/15/2015 Comp Metabolic Hhr409 GLOB 2.7 g/dL 06/15/2015 Comp Metabolic Wpk149 A/G Ratio 1.5 Ratio 06/15/2015 Comp Metabolic Slh027 Osmo 277 mOsmo 06/15/2015 Lipid Ord30 CHOL [...] 33.8 % 06/15/2015 Cbc With Differential Ord2 [place]% 14.5 % 06/15/2015 Cbc With Differential Ord2 [...] 1.33 K/ul 06/15/2015 Cbc With Differential Ord2 [place] ABS# 0.6 K/ul 06/15/2015 Cbc With Differential Ord2 Eos ABS# 0.2 K/ul 06/15/2015 Cbc With Differential Ord2 Baso ABS# 0.0 K/ul 06/15/2015 Cbc With Differential Ord2 New Analyzer Notice Please note new ref ranges starting 03-16-2015 due to implemntation of new five part differential hematolgy analyzer. 06/15/2015 Tsh Ord6 hTSH II 2.01 uIU/mL 06/15/2015 VIT D TOTL 4918133 VIT D TOTL 57 NG/ML 12/14/2013 CHEM 14 2176782 AST 18 U/L 12/14/2013 CHEM 14 0364685 ALT 14 IU/L 12/14/2013 CHEM 14 1853458 BUN 19 MG/DL 12/14/2013 CHEM 14 4133736 ALBUMIN 4.2 GM/DL 12/14/2013 CHEM 14 5034089 CHLORIDE 106 MMOL/L 12/14/2013 CHEM 14 1823283 BILI TOT 0.9 MG/DL 12/14/2013 CHEM 14 6119778 ALK PHOS 30 U/L 12/14/2013 CHEM 14 4679115 SODIUM 140 MMOL/L 12/14/2013 CHEM 14 0586550 CREATININE 1.10 MG/DL 12/14/2013 CHEM 14 4035057 CALCIUM 9.4 MG/DL 12/14/2013 CHEM 14 3725024 POTASSIUM 4.1 MMOL/L 12/14/2013 CHEM 14 9597809 PROT TOT 6.9 GM/DL 12/14/2013 CHEM 14 9837617 GLUCOSE 91 MG/DL 12/14/2013 CHEM 14 1699426 BICARB 30 MMOL/L 12/14/2013 CHEM 14 5445223 ANION GAP 4 MEQ/L 12/14/2013 LIPID GRP HDL TEST 56 MG/DL 12/14/2013 LIPID GRP TRIG 56 MG/DL 12/14/2013 LIPID GRP TEST LDL 138 MG/DL 12/14/2013 LIPID GRP CHOL 205 MG/DL 12/14/2013 LIPID GRP RCHOL/HDL 3.66 RATIO 12/14/2013 LIPID GRP NON-HDL CH 149 MG/DL 12/14/2013 CBC 6711109 WBC 4.1 10e9/L 12/14/2013 CBC 0819916 RBC 4.90 10e12/L 12/14/2013 CBC 7331336 HGB 14.6 g/dL 12/14/2013 CBC 0983802 HCT DET 42.2 % 12/14/2013 CBC 2756236 MCV 86.1 fL 12/14/2013 CBC 4217630 MCH 29.8 pg 12/14/2013 CBC 5445014 MCHC 34.6 g/dL 12/14/2013 CBC 4818102 PLT 166 10e9/L 12/14/2013 CBC 1776104 MPV 9.0 fL 12/14/2013 CBC 3408089 LAUREL % 52.6 % 12/14/2013 CBC 6560907 LY % 31.6 % 12/14/2013 CBC 8149860 MON % 11.9 % 12/14/2013 CBC 9345774 EOS % 3.2 % 12/14/2013 CBC 5620534 BASO % 0.7 % 12/14/2013 CBC 2408239 RDW 13.6 % 12/14/2013 CBC 8123655 ABS LAUREL 2.16 10e9/L 12/14/2013 CBC 9438403 ABS LYMPH 1.30 10e9/L 12/14/2013 CBC 5991955 ABS MONO 0.49 10e9/L 12/14/2013 CBC 3481325 ABS EOS 0.13 10e9/L 12/14/2013 CBC 6044861 ABS BASO 0.03 10e9/L 12/14/2013 CBC 9947564 RDW-SD 41.7 fL 12/14/2013 GFR CALC 9510901 GFR AA >60 ML/MIN 12/14/2013 GFR CALC 4218393 GFR NON-AA >60 ML/MIN 12/14/2013 TSH 3608672 TSH 2.444 uIU/ML 12/14/2013 CHEM 14 0812690 AST 20 U/L 12/22/2012 CHEM 14 1985153 ALT 18 IU/L 12/22/2012 CHEM 14 7046795 BUN 20 MG/DL 12/22/2012 CHEM 14 8429159 ALBUMIN 4.1 GM/DL 12/22/2012 CHEM 14 4460972 CHLORIDE 105 MMOL/L 12/22/2012 CHEM 14 6457149 BILI TOT 1.1 MG/DL 12/22/2012 CHEM 14 5980278 ALK PHOS 31 U/L 12/22/2012 CHEM 14 0538789 SODIUM 138 MMOL/L 12/22/2012 CHEM 14 8483127 CREATININE 1.07 MG/DL 12/22/2012 CHEM 14 2103211 CALCIUM 9.3 MG/DL 12/22/2012 CHEM 14 2112231 POTASSIUM 4.2 MMOL/L 12/22/2012 CHEM 14 6283276 PROT TOT 6.9 GM/DL 12/22/2012 CHEM 14 2821477 GLUCOSE 86 MG/DL 12/22/2012 CHEM 14 8713533 BICARB 30 MMOL/L 12/22/2012 CHEM 14 0856735 ANION GAP 3 MEQ/L 12/22/2012 TSH 3778798 TSH 1.886 uIU/ML 12/22/2012 GFR CALC 3351784 GFR AA >60 ML/MIN 12/22/2012 GFR CALC 9883389 GFR NON-AA >60 ML/MIN 12/22/2012 LIPID GRP HDL TEST 48 MG/DL 12/22/2012 LIPID GRP TRIG 60 MG/DL 12/22/2012 LIPID GRP TEST LDL 121 MG/DL 12/22/2012 LIPID GRP CHOL 181 MG/DL 12/22/2012 LIPID GRP RCHOL/HDL 3.77 RATIO 12/22/2012 CBC 4223415 WBC 4.1 10e9/L 12/22/2012 CBC 4797275 RBC 4.67 10e12/L 12/22/2012 CBC 5031118 HGB 14.1 g/dL 12/22/2012 CBC 0337549 HCT DET 40.6 % 12/22/2012 CBC 1010313 MCV 86.9 fL 12/22/2012 CBC 4582053 MCH 30.2 pg 12/22/2012 CBC 6467710 MCHC 34.7 g/dL 12/22/2012 CBC 3536032 PLT 170 10e9/L 12/22/2012 CBC 7229176 MPV 9.1 fL 12/22/2012 CBC 7664734 LAUREL % 49.2 % 12/22/2012 CBC 5671337 LY % 34.8 % 12/22/2012 CBC 5042037 MON % 12.1 % 12/22/2012 CBC 5995454 EOS % 3.4 % 12/22/2012 CBC 6062584 BASO % 0.5 % 12/22/2012 CBC 0624064 RDW 13.8 % 12/22/2012 CBC 3374949 ABS LAUREL 2.02 10e9/L 12/22/2012 CBC 1256902 ABS LYMPH 1.43 10e9/L 12/22/2012 CBC 1599875 ABS MONO 0.50 10e9/L 12/22/2012 CBC 7908972 ABS EOS 0.14 10e9/L 12/22/2012 CBC 4570611 ABS BASO 0.02 10e9/L 12/22/2012 CBC 5418926 RDW-SD 43.0 fL 12/22/2012 LIPID GRP HDL TEST 52 MG/DL 09/25/2011 LIPID GRP TRIG 48 MG/DL 09/25/2011 LIPID GRP TEST LDL 128 MG/DL 09/25/2011 LIPID GRP CHOL 190 MG/DL 09/25/2011 LIPID GRP RCHOL/HDL 3.65 RATIO 09/25/2011 TSH 9074458 TSH 1.923 uIU/ML 09/25/2011 GFR CALC 8365996 GFR AA >60 ML/MIN 09/25/2011 GFR CALC 3417613 GFR NON-AA >60 ML/MIN 09/25/2011 CHEM 14 7664692 AST 16 U/L 09/25/2011 CHEM 14 3509378 ALT 12 IU/L 09/25/2011 CHEM 14 2197862 BUN 28 MG/DL 09/25/2011 CHEM 14 7732373 ALBUMIN 4.2 GM/DL 09/25/2011 CHEM 14 4555240 CHLORIDE 105 MMOL/L 09/25/2011 CHEM 14 8500790 BILI TOT 0.9 MG/DL 09/25/2011 CHEM 14 9662866 ALK PHOS 35 U/L 09/25/2011 CHEM 14 5846892 SODIUM 138 MMOL/L 09/25/2011 CHEM 14 4975613 CREATININE 1.02 MG/DL 09/25/2011 CHEM 14 6231705 CALCIUM 9.2 MG/DL 09/25/2011 CHEM 14 9066125 POTASSIUM 4.1 MMOL/L 09/25/2011 CHEM 14 7435073 PROT TOT 6.7 GM/DL 09/25/2011 CHEM 14 3755629 GLUCOSE 85 MG/DL 09/25/2011 CHEM 14 0963024 BICARB 29 MMOL/L 09/25/2011 CHEM 14 7577940 ANION GAP 4 MEQ/L 09/25/2011 CBC 8881558 WBC 4.1 10e9/L 09/25/2011 CBC 9021742 RBC 4.71 10e12/L 09/25/2011 CBC 0429941 HGB 14.0 g/dL 09/25/2011 CBC 5908234 HCT DET 40.3 % 09/25/2011 CBC 2593491 MCV 85.6 fL 09/25/2011 CBC 8001057 MCH 29.7 pg 09/25/2011 CBC 8589354 MCHC 34.7 g/dL 09/25/2011 CBC 6918188 PLT 148 10e9/L 09/25/2011 CBC 8581597 MPV 9.1 fL 09/25/2011 CBC 9622781 LAUREL % 48.6 % 09/25/2011 CBC 3084813 LY % 36.6 % 09/25/2011 CBC 3874310 MON % 11.2 % 09/25/2011 CBC 6547922 EOS % 3.4 % 09/25/2011 CBC 9367496 BASO % 0.2 % 09/25/2011 CBC 3758323 RDW 13.2 % 09/25/2011 CBC 3363534 ABS LAUREL 1.99 10e9/L 09/25/2011 CBC 4005475 ABS LYMPH 1.50 10e9/L 09/25/2011 CBC 1399343 ABS MONO 0.46 10e9/L 09/25/2011 CBC 4524514 ABS EOS 0.14 10e9/L 09/25/2011 CBC 6053404 ABS BASO 0.01 10e9/L 09/25/2011 CBC 1720885 RDW-SD 40.9 fL 09/25/2011 Review of Systems [...] accomodation 09/09/2014 None Full Exam - General 1995 Ears/Nose/Throat [...] benign 05/25/2013 None Full Exam - General 1995 Neurologic deep tendon reflexes Overall: deep tendon reflexes intact 05/25/2013 None Full Exam - General 1995 Neurologic cranial nerves Overall: crainial nerves 2 - 12 grossly intact 05/25/2013 None Full Exam - General 1995 Neurologic motor Overall: normal bulk, tone 05/25/2013 None Full Exam - General 1995 [...] lordosis 11/24/2012 None Full Exam - General 1995 Musculoskeletal spine, ribs and pelvis Sacroiliac joints: [...] 10/02/2011 dry, rough, scaly lesion to left yarsanism, right yarsanism, bridge of left nose x 2-removed using [...] -4: G0439 01/23/2016 DESTRUCT PREMALG LESION CPT-4: 23202 10/02/2011 DESTRUCT PREMALG LES 2-14 CPT-4: 25780 10/02/2011 Vital Signs Date Vital 10/18/2017 Blood Pressure 1: 146/78 Code : 8480-6 BMI: 27.2 Code : 56119-5 Heart Rate 1 : 65 bpm Height: 5'9" SpO2: 96% Weight: 184 lbs 09/10/2017 Blood Pressure 1: 122/80 Code : 8480-6 BMI: 27.2 Code : 49299-9 Heart Rate 1 : 68 bpm Height: 5'9" SpO2: 96% Weight: 184 lbs 5 oz 03/14/2017 Blood Pressure 1: 128/80 Code : 8480-6 BMI: 28.1 Code : 25511-9 Heart Rate 1 : 63 bpm Height: 5'9" SpO2: 99% Weight: 190 lbs 09/11/2016 Blood Pressure 1: 120/70 Code : 8480-6 BMI: 28.2 Code : 32192-1 Heart Rate 1 : 56 bpm Height: 5'9" SpO2: 97% Weight: 191 lbs 03/07/2016 Blood Pressure 1: 124/66 Code : 8480-6 BMI: 27.3 Code : 43609-8 Heart Rate 1 : 64 bpm Height: 5'9" SpO2: 98% Weight: 185 lbs 01/23/2016 Blood Pressure 1: 140/66 Code : 8480-6 BMI: 27.2 Code : 53787-2 Heart Rate 1 : 55 bpm Height: 5'9" SpO2: 98% Waist Measure (cm): 86 cm Weight: 184 lbs 11/09/2015 Blood Pressure 1: 132/80 Code : 8480-6 BMI: 26.9 Code : 88136-2 Heart Rate 1 : 60 bpm Height: 5'9" SpO2: 98% Weight: 182 lbs 08/09/2015 Blood Pressure 1: 122/72 Code : 8480-6 BMI: 27.0 Code : 67074-6 Heart Rate 1 : 61 bpm Height: 5'9" SpO2: 98% Weight: 182 lbs 8 oz 07/04/2015 Blood Pressure 1: 132/80 Code : 8480-6 BMI: 27.0 Code : 53420-5 Heart Rate 1 : 52 bpm Height: 5'9" SpO2: 98% Weight: 183 lbs 06/30/2015 Blood Pressure 1: 162/88 Code : 8480-6 Heart Rate 1: 58 bpm 06/14/2015 Blood Pressure 1: 170/96 Code : 8480-6 BMI: 27.3 Code : 86808-7 Heart Rate 1 : 55 bpm Height: 5'9" SpO2: 98% Weight: 185 lbs 03/14/2015 Blood Pressure 1: 152/80 Code : 8480-6 Blood Pressure 1: 136/82 Code: 8480-6 BMI: 27.5 Code: 39533-5 Heart Rate 1: 56 bpm Height: 5'9" SpO2: 98% Weight: 186 lbs 12/13/2014 Blood Pressure 1: 138/80 Code : 8480-6 BMI: 27.0 Code : 45329-9 Heart Rate 1 : 70 bpm Height: 5'9" Weight: 183 lbs 11/16/2014 Blood Pressure 1: 130/70 Code : 8480-6 Heart Rate 1: 64 bpm Height: Weight: 09/09/2014 Blood Pressure 1: 140/90 Code : 8480-6 BMI: 26.3 Code : 60793-4 Heart Rate 1 : 78 bpm Height: 5'9" Weight: 178 lbs 08/25/2014 Blood Pressure 1: 160/90 Code : 8480-6 BMI: 26.3 Code : 39214-8 Heart Rate 1 : 79 bpm Height: 5'9" SpO2: 97% Weight: 178 lbs 06/10/2014 Blood Pressure 1: 142/88 Code : 8480-6 BMI: 26.7 Code : 44007-4 Heart Rate 1 : 63 bpm Height: 5'9" SpO2: 97% Weight: 181 lbs 12/03/2013 Blood Pressure 1: 138/78 Code : 8480-6 BMI: 26.0 Code : 60744-1 Heart Rate 1 : 68 bpm Height: 5'9" SpO2: 98% Weight: 176 lbs 05/25/2013 Blood Pressure 1: 152/84 Code : 8480-6 Blood Pressure 2: 138/86 Code: 8480-6 BMI: 26.1 Code: 26068-8 Heart Rate 1: 80 bpm Height: 5'9" Weight: 177 lbs 11/24/2012 Blood Pressure 1: 124/68 Code : 8480-6 BMI: 25.4 Code : 07150-8 Heart Rate 1 : 80 bpm Height: 5'9" Weight: 172 lbs 05/26/2012 Blood Pressure 1: 120/58 Code : 8480-6 BMI: 26.1 Code : 13866-1 Heart Rate 1 : 72 bpm Height: 5'9" Respiratory Rate: 16 bpm Weight: 177 lbs 11/27/2011 Blood Pressure 1: 116/68 Code : 8480-6 BMI: 25.5 Code : 83692-0 Heart Rate 1 : 60 bpm Height: 5'9" Respiratory Rate: 16 bpm Weight: 172 lbs 8 oz 10/02/2011 Blood Pressure 1: 134/74 Code : 8480-6 Heart Rate 1: 60 bpm 09/20/2011 Blood Pressure 1: 116/60 Code : 8480-6 BMI: 25.1 Code : 82254-7 Heart Rate 1 : 80 bpm Height: [...] data Encounters Encounter Performer Location Codes Date ([id number]) [id number] EST. PATIENT, LEVEL III Diagnosis: Gastro-esophageal reflux disease without esophagitis[ICD10: K21.9] Diagnosis: Cervicalgia[ICD10: M54.2] Michelle Chau MD, [facility] CPT-4: 33195 10/18/2017 ([id number]) 60486 EST. PATIENT, LEVEL IV Diagnosis: Essential (primary) hypertension[ICD10: I10] Diagnosis: Essential tremor[ICD10: G25.0] Bernadette Chau MD, [facility] CPT- 4: 36264 09/10/2017 [id number]) [id number] EST. PATIENT, LEVEL IV Diagnosis: Essential (primary) hypertension[ICD10: I10] Diagnosis: Essential tremor[ICD10: G25.0] Bernadette Chau MD, [facility] CPT- 4: 30610 03/14/2017 ([id number]) 81291 EST. PATIENT, LEVEL IV Diagnosis: Essential (primary) hypertension[ICD10: I10] Diagnosis: Essential tremor[ICD10: G25.0] Bernadette Chau MD, [facility] CPT- 4: 23433 09/11/2016 [id number]) [id number] EST. PATIENT, LEVEL IV Diagnosis: Essential (primary) hypertension[ICD10: I10] Diagnosis: Essential tremor[ICD10: G25.0] Bernadette Chau MD, [facility] CPT- 4: 95798 03/07/2016 [id number]) 47207 EST. PATIENT, LEVEL III Diagnosis: Essential (primary) hypertension[ICD10: I10] Diagnosis: Essential tremor[ICD10: G25.0] Bernadette Chau MD, [facility] CPT- 4: 94609 11/09/2015 ([id number]) 36856 EST. PATIENT, LEVEL III Diagnosis: Essential (primary) hypertension[ICD10: I10] Bernadette Chau MD [facility] CPT-4: 33861 08/09/2015 ([id number]) 21679 EST. PATIENT, LEVEL III Diagnosis: Essential (primary) hypertension[ICD10: I10] Bernadette Chau MD [facility] CPT-4: 48113 07/04/2015 ([id number]) Miscellaneous no charge Diagnosis: Essential (primary) hypertension[ICD10: I10] Bernadette Chau MD [facility] CPT-4: 55812 06/30/2015 ([id number]) 94239 EST. PATIENT, LEVEL IV Diagnosis: Essential (primary) hypertension[ICD10: I10] Diagnosis: Male erectile disorder[ICD10: F52.21] Diagnosis: Gastro-esophageal reflux disease without esophagitis[ICD10: K21.9] Bernadette Chau MD [facility] CPT-4: 92417 06/14/2015 ([id number]) 86369 EST. PATIENT, LEVEL IV Diagnosis: Essential (primary) hypertension[ICD10: I10] Diagnosis: Low back pain[ICD10: M54.5] Diagnosis: Malignant neoplasm of prostate[ICD10: C61] Bernadette Chau MD [facility] CPT-4: 15498 03/14/2015 ([id number]) 13739 EST. PATIENT, LEVEL III Diagnosis: Essential (primary) hypertension[ICD10: I10] Bernadette Chau [facility] [facility] CPT-4: 97112 12/13/2014 ([id number]) 03971 EST. PATIENT, LEVEL II Diagnosis: ESSENTIAL HYPERTENSION[ICD9: 401.9] Bernadette Chau MD [facility] CPT-4: 11785 11/16/2014 ([id number]) 73956 EST. PATIENT, LEVEL III Diagnosis: ESSENTIAL HYPERTENSION[ICD9: 401.9] Diagnosis: GENERALIZED ANXIETY DISEASE[ICD9: 300.02] Bernadette Chau MD [facility] CPT-4: 99104 09/09/2014 ([id number]) 14309 EST. PATIENT, LEVEL IV Diagnosis: ESSENTIAL HYPERTENSION[ICD9: 401.9] Diagnosis: GENERALIZED ANXIETY DISEASE[ICD9: 300.02] Bernadette Chau MD, [facility] CPT-4: 58807 08/25/2014 ([id number]) 68497 EST. PATIENT, LEVEL IV Diagnosis: ESSENTIAL HYPERTENSION[ICD9: 401.9] Diagnosis: GENERALIZED ANXIETY DISEASE[ICD9: 300.02] Diagnosis: ESOPHAGEAL REFLUX[ICD9: 530.81] Bernadette Chau MD [facility] CPT- 4: 15123 06/10/2014 ([id number]) 00818 EST. PATIENT, LEVEL IV Diagnosis: ESSENTIAL HYPERTENSION[ICD9: 401.9] Diagnosis: ESOPHAGEAL REFLUX[ICD9: 530.81] Bernadette Chau MD [facility] CPT- 4: 77739 12/03/2013 ([id number]) 83171 EST. 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 PATIENT, LEVEL IV Diagnosis: ESSENTIAL HYPERTENSION[SNOMED: 09104810] Diagnosis: Nausea[ICD9: 787.02] Diagnosis: ESOPHAGEAL REFLUX[ICD9: 530.81] Bernadette Chau MD [facility] CPT- 4: 89948 11/24/2012 ([id number]) 70232 EST. 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 PATIENT, LEVEL III Diagnosis: ESSENTIAL HYPERTENSION[SNOMED: 15208752] Bernadette Chau MD, [facility] CPT-4: 60647 11/27/2011 ([id number]) OFFICE VISIT, NEW - LEVEL 3 Diagnosis: ESSENTIAL HYPERTENSION[SNOMED: 29691802] Diagnosis: Impotence[ICD9: 607.84] Diagnosis: Osteoarthritis[ICD9: 715.90] [facility] CPT- 4: 63610 09/20/2011 Plan of Care Planned Activity Notes [...] daily and start neck exercises daily. 10/18/2017 Patient Education: Patient Medication Summary Completed [...] symptoms worsen. 09/10/2017 Appointment: Bernadette Chau WPtel: [address] [place], [place] [address] (15 min) Moderate 09/10/2017 Patient Education: Patient [...] care. 03/14/2017 [phone] ([facility] min) Moderate 03/14/2017 Patient [...] time 09/11/2016 App[facility]ment[phone] ([facility] min) Moderate 09/11/2016 Patient [...] symptoms. 03/07/2016 Appointment: [phone] (15 min) Moderate 03/07/2016 Patient [...] care surrogate. 01/23/2016 Appointment: Kelly Mancera WPtel: [phone] [facility] [facility] - Annual Wellness Visit 01/23/2016 Patient Education: [...] essential tremor. 11/09/2015 Appointment: Bernadette Chau WPtel: [facility] (15 min) Moderate 11/09/2015 Patient Education: Patient [...] at home. 08/09/2015 Appointment: Bernadette Chau WPtel: [facility] (15 min) Moderate 08/09/2015 Patient Education: [...] acute concerns. 07/04/2015 Appointment: Bernadette Chau WPtel: [facility] (15 min) Moderate 07/04/2015 Patient Education: Patient [...] improving. 06/14/2015 Appointment: [phone] (30 min) Complex 06/14/2015 Patient [...] and sacrum. 03/14/2015 Appointment: [phone] (15 min) Moderate 03/14/2015 Patient Education: Patient [...] 50mg daily. 12/13/2014 Appointment: Bernadette Chau WPtel: [facility] (15 min) Moderate 12/13/2014 Patient Education: Patient Medication Summary Completed 12/13/2014 Patient Education: Hypertension Completed 12/13/2014 Appointment: Bernadette Chau WPtel: [phone] [facility] Follow up 12/09/2014 Visit Plan: Hypertension [...] not improving. 09/09/2014 Appointment: Bernadette Chau WPtel: [facility] (15 min) Moderate 09/09/2014 Patient [...] concerns. 08/25/2014 Appointment: Bernadette Chau WPtel: [phone] [facility] (10 min) Simple 08/25/2014 Patient Education: Patient [...] on cialis. 06/10/2014 Appointment: Bernadette Chau WPtel: [facility] Follow up 06/10/2014 Patient Education: Patient [...] at home. 12/03/2013 Appointment: Bernadette Chau WPtel: [phone] [facility] Follow up 12/03/2013 Patient Education: Patient [...] cialis 05/25/2013 Appointment: Bernadette Chau WPtel: [phone] [facility] Follow up 05/25/2013 Patient Education: Patient [...] improving. 11/24/2012 Appointment: Bernadette Chau WPtel: [phone] [facility] Follow up 11/24/2012 Patient Education: Patient [...] times daily. 05/26/2012 Appointment: Bernadette Chau WPtel: [phone] [facility] Established Patient Preventative visit 05/26/2012 Patient Education: [...] home. 11/27/2011 Appointment: [phone] Follow [facility] 11/27/2011 Patient Education: Patient Medication Summary Completed 11/27/2011 Patient Education: High Blood Pressure: Essential Hypertension Completed 2011 Visit Plan: Wound Instructions - Pt was instruced to keep the wound clean, wash with antibacterial soap, use triple antibiotic ointment, call if redness, pustular drainage, or any other acute conerns. 10/02/2011 App[facility]ment: [phone] [facility] 10/02/2011 Patient Education: Patient Medication [...] symptoms. 09/20/2011 Appointment: [phone] [place] New [facility] 09/20/2011 Patient [...] blood pressure readings at home. Declined Procedure: ([id number]) FLU VACC 4 WILVER 3 YRS PLUS [...]
--- OUTSIDE RECORDS SUMMARY | 2018-01-04 00:48 | XMS REPORT | CCD ---
Author Author [facility] Organization [facility] Address [address] [place] [address] Phone Care Team Providers Care Senior Benefits Analyst Name Role Phone PP Unavailable CCM Unavailable Summary Purpose Interface Exchange Insurance Providers Payer name Policy type / Coverage type Covered green party ID Effective Begin Date Effective End Date WPS Medicare Part B Medicare Part B [id number] Unknown Unknown [facility] Medicare Part B [id number] Unknown Unknown Family history Grandfather Diagnosis Age At Onset Heart Attack Unknown Mother Diagnosis Age At Onset Diabetes mellitus Type 2 Unknown Atrial fibrillation Unknown Brother Diagnosis Age At Onset No Family Disease Entered N/A Father Diagnosis Age At Onset No Family Disease Entered N/A Social History Social History Element Codes Description Effective Dates Marital status Unknown 09/20/2011 Employment Unknown Retired 09/20/[address]: 817153758 Nonsmoker smoked for 2-3 years in 20's, used smokeless tobacco for 40 yrs 09/20/[address]: 8355686 Former smoker quit 1965 09/20/2011 Alcohol history Unknown occasionally drinks alcohol drinks socially 09/20/2011 Alcohol history Unknown occasionally drinks alcohol 2-3 weekly 09/20/2011 Has the patient ever used illegal drugs? Unknown Has never used illegal drugs 09/20/2011 Allergies, Adverse Reactions, Alerts Allergies, Adverse Reactions, Alerts data not found Past Medical History Illness Codes Condition Status Onset Date Resolved Date Essential (primary) hypertension ICD-9: 401.9 ICD-10: I10 Active 12/03/2013 Unknown Essential tremor ICD-9 : 333.1 ICD-10: G25.0 Active 11/08/2015 Unknown Gastro-esophageal reflux disease without esophagitis ICD-9: 530.81 ICD-10: K21.9 Active 12/03/2013 Unknown Encounter for general adult medical examination [...] esophagitis ICD-9: 530.81 ICD-10: K21.9 12/03/2013 Active Encounter for general adult medical examination [...] Fill Instructions doxazosin 1 mg tablet RxNorm: 183612 TAKE 1/2 (ONE- HALF) TABLET TWICE DAILY 04/10/2017 11/05/2017 Active Generic For:CARDURA 1MG 04/10/2017 1:06:52 PM carvedilol 12.5 mg tablet RxNorm: 863027 Tablet(s) TAKE 1 TABLET BY MOUTH TWICE DAILY 04/10/2017 11/05/2017 Active hydrochlorothiazide 25 mg tablet RxNorm: 622987 TAKE 1 TABLET BY MOUTH IN THE MORNING 03/05/2017 09/30/2017 Active Generic For:HYDRODIURIL 25 MG TABLET 2017 10:38:53 AM buspirone 15 mg tablet RxNorm: 372321 Tablet(s) Take 1 pill in the morning, 1/2 pill at 1 or 2pm and 1 pill at bedtime 12/06/2016 04/28/2017 Active doxazosin 1 mg tablet RxNorm: 734433 1/2 Tablet(s) PO BID 201604/09/2017 Inactive lisinopril 40 mg tablet RxNorm: 994178 TAKE 1/2 TABLET BY MOUTH TWICE DAILY 09/18/2016 09/12/2017 Active Generic For:ZESTRIL 40MG 09/18/2016 9:08:05 AM carvedilol 12.5 mg tablet RxNorm: 073477 Tablet(s) TAKE 1 TABLET BY MOUTH TWICE DAILY 09/14/2016 04/09/2017 Inactive potassium chloride ER 10 mEq capsule,extended release RxNorm: 982234 1 Capsule(s) PO TIW 08/14/2016 07/15/2017 Active hydrochlorothiazide 25 mg tablet RxNorm: 592508 TAKE 1 TABLET BY MOUTH IN THE MORNING 08/06/2016 03/03/2017 Inactive Generic For:HYDRODIURIL 25 MG TABLET 2016 9:47:38 AM doxazosin 1 mg tablet RxNorm: 757567 1/2 Tablet(s) PO BID 201611/11/2016 Inactive fexofenadine 180 mg tablet RxNorm: 717602 1 Tablet(s) PO daily 04/05/2016 10/01/2016 Inactive fexofenadine 180 mg tablet RxNorm: 223980 1 Tablet(s) PO daily 04/05/2016 04/04/2016 Inactive buspirone 15 mg tablet RxNorm: 700504 Tablet(s) Tablet(s) take 1 pill in the morning, 1/2 pill at 1 or 2pm and 1 pill at bedtime 201609/07/2016 Inactive Generic For:BUSPAR 15MG 08/19/2014 9:29:55 AM carvedilol 12.5 mg tablet RxNorm: 663648 Tablet(s) TAKE 1 TABLET BY MOUTH TWICE DAILY 02/14/2016 09/10/2016 Inactive potassium chloride ER 10 mEq capsule,extended release RxNorm: 269040 1 Capsule(s) PO TIW 02/08/2016 08/13/2016 Inactive hydrochlorothiazide 25 mg tablet RxNorm: 596006 1 Tablet(s) PO QAM 01/09/2016 08/05/2016 Inactive carvedilol 12.5 mg tablet RxNorm: 891167 TAKE 1 TABLET BY MOUTH TWICE DAILY 10/18/2015 02/13/2016 Inactive Generic For:COREG 12.5MG 10/17/2015 1:04:24 PM lisinopril 40 mg tablet RxNorm: 755102 1/2 Tablet(s) PO BID 08/15/2016 Inactive Generic For:ZESTRIL 20MG 07/21/2014 9:29:18 AM doxazosin 1 mg tablet RxNorm: 502107 1/2 Tablet(s) PO BID 201510/31/2015 Inactive this is FYI for now - and will remain this in the future, does not need a fill right now doxazosin 1 mg tablet RxNorm: 652178 1 Tablet(s) PO BID 201506/29/2015 Inactive doxazosin 1 mg tablet RxNorm: 828353 1 Tablet(s) PO BID 201507/03/2015 Inactive potassium chloride ER 10 mEq capsule,extended release RxNorm: 520227 1 Capsule(s) PO TIW 06/14/2015 01/09/2016 Inactive hydrochlorothiazide 25 mg tablet RxNorm: 031968 1 Tablet(s) PO QAM 06/14/2015 01/08/2016 Inactive buspirone 15 mg tablet RxNorm: 250436 Tablet(s) take 1 pill in the morning, 1/2 pill at 1 or 2pm and 1 pill at bedtime 06/13/2015 12/09/2015 Inactive Generic For: BUSPAR 15MG 08/19/2014 9:29:55 AM carvedilol 12.5 mg tablet RxNorm: 588111 TAKE 1 TABLET BY MOUTH TWICE DAILY 05/20/2015 09/16/2015 Inactive Generic For:COREG 12.5MG 05/20/2015 9:04:34 AM carvedilol 12.5 mg tablet RxNorm: 688783 Tablet(s) 1 Tablet(s) PO BID 05/20/2015 05/19/2015 Inactive carvedilol 12.5 mg tablet RxNorm: 760348 1 Tablet(s) PO BID 05/19/2015 Inactive spironolactone 50 mg tablet RxNorm: 417935 1 Tablet(s) PO QAM 12/13/2014 06/13/2015 Inactive carvedilol 12.5 mg tablet RxNorm: 304649 1 Tablet(s) PO BID 01/11/2015 Inactive spironolactone 25 mg tablet RxNorm: 187150 1 Tablet(s) PO QAM 09/13/2014 12/12/2014 Inactive spironolactone 25 mg tablet RxNorm: 564127 1 Tablet(s) PO QAM 09/13/2014 09/12/2014 Inactive buspirone 15 mg tablet RxNorm: 121347 Tablet(s) take 1 pill in the morning, 1/2 pill at 1 or 2pm and 1 pill at bedtime 09/09/2014 03/07/2015 Inactive Generic For: BUSPAR 15MG 08/19/2014 9:29:55 AM lisinopril 40 mg tablet RxNorm: 128365 1/2 Tablet(s) PO BID 08/19/2015 Inactive Generic For:ZESTRIL 20MG 07/21/2014 9:29:18 AM Coreg 6.25 mg tablet RxNorm: 932289 1 Tablet(s) PO BID 201409/13/2014 Inactive buspirone 15 mg tablet RxNorm: 131105 TAKE 1 TABLET BY MOUTH TWICE DAILY 08/19/2014 09/08/2014 Inactive Generic For:BUSPAR 15MG 08/19/2014 9:29:55 AM lisinopril 20 mg tablet RxNorm: 519239 1 Tablet(s) PO daily TAKE 1 TABLET BY MOUTH ONCE DAILY. 07/21/2014 07/20/2014 Inactive Generic For:*ZESTRIL 20MG Generic For:*ZESTRIL 20MG 07/29/2013 11:19:45 AM lisinopril 20 mg tablet RxNorm: 683096 TAKE 1 TABLET BY MOUTH ONCE DAILY. 07/21/2014 08/24/2014 Inactive Generic For:ZESTRIL 20MG 07/21/2014 9:29:18 AM buspirone 15 mg tablet RxNorm: 279202 1 Tablet(s) BID 1 Tablet(s) PO BID 06/21/2014 08/18/2014 Inactive Tamiflu 75 mg capsule RxNorm: 681650 1 Capsule(s) PO daily 03/1203/11/2014 Inactive Tamiflu 75 mg capsule RxNorm: 988731 1 Capsule(s) PO daily 03/1203/21/2014 Inactive buspirone 15 mg tablet RxNorm: 116647 1 Tablet(s) BID 1 Tablet(s) PO BID 02/16/2014 06/20/2014 Inactive buspirone 15 mg tablet RxNorm: 782264 1 Tablet(s) PO BID 201302/15/2014 Inactive lisinopril 20 mg tablet RxNorm: 579600 Tablet(s) PO TAKE 1 TABLET BY MOUTH ONCE DAILY. 07/30/2013 07/20/2014 Inactive Generic For:*ZESTRIL 20MG Generic For:* ZESTRIL 20MG 07/29/2013 11:19:45 AM buspirone 15 mg tablet RxNorm: 586793 1 Tablet(s) PO BID 201310/18/2013 Inactive Zithromax 250 mg tablet RxNorm: 156558 Tablet(s) PO 03/18/2013 06/13/2015 Inactive as directed buspirone 15 mg tablet RxNorm: 663280 Tablet(s) PO TAKE 1 TABLET AT BEDTIME AND TAKE 1/2 A TABLET TWICE A DAY 12/22/2012 05/24/2013 Inactive buspirone 15 mg tablet RxNorm: 993830 1 at hs 1/2 bid Tablet(s) PO daily 11/27/2012 No Stop Date Active buspirone 15 mg tablet RxNorm: 908361 Tablet(s) PO daily 201211/26/2012 Inactive 1 q hs and 1/2 daily buspirone 15 mg tablet RxNorm: 543085 Tablet(s) PO daily 2012 No Stop Date Active 1 q hs and 1/2 daily buspirone 15 mg tablet RxNorm: 985372 Tablet(s) PO daily 201210/26/2012 Inactive 1 q hs and 1/2 daily lisinopril 20 mg tablet RxNorm: 613904 Tablet(s) PO TAKE 1 TABLET BY MOUTH ONCE DAILY. 08/05/2012 07/29/2013 Inactive lisinopril 20 mg tablet RxNorm: 639667 Tablet(s) PO TAKE 1 TABLET BY MOUTH ONCE DAILY. 07/07/2012 08/04/2012 Inactive lisinopril 20 mg tablet RxNorm: 658565 Tablet(s) PO 01/07/2012 07/06/2012 Inactive TAKE 1 TABLET BY MOUTH ONCE DAILY. lisinopril 20 mg tablet RxNorm: 478178 Tablet(s) PO 12/10/2011 01/06/2012 Inactive TAKE 1 TABLET BY MOUTH ONCE DAILY. lisinopril 20 mg tablet RxNorm: 657028 1 Tablet(s) PO daily 01/201212/09/2011 Inactive can have #90 if prefers lisinopril 20 mg tablet RxNorm: 545193 1 Tablet(s) PO daily 01/201211/12/2011 Inactive can have #90 if prefers buspirone 15 mg tablet RxNorm: 463644 Tablet(s) PO daily 201110/26/2012 Inactive 1 q hs and 1/2 daily Calcium 600 + D(3) oral RxNorm: 105454 oral No Start Date Active Fish Oil Concentrate Oral RxNorm: Oral No Start Date Active Centrum Silver Oral RxNorm: Oral No Start Date Active Zithromax 250 mg tablet RxNorm: 365072 Tablet(s) PO No Start Date 03/17/2013 Inactive as directed lisinopril 20 mg tablet RxNorm: 892229 1 Tablet(s) PO daily No Start Date 11/16/2014 Inactive buspirone 15 mg tablet RxNorm: 790076 1 Tablet(s) PO daily No Start Date 09/24/2011 Inactive B Complex 1 Oral RxNorm: Oral No Start Date 06/13/2015 Inactive lisinopril 20 mg tablet RxNorm: 113762 1 Tablet(s) PO daily No Start Date 11/12/2011 Inactive Medication Administered No Medication Administered data Immunizations No Immunization data Assessments Condition Codes Effective Dates Essential tremor ICD-10: G25.0 ICD-9: 333.1 03/14/2017 Essential (primary) hypertension ICD-10: I10 ICD-9: 401.9 03/14/2017 Encounter for general adult medical examination without abnormal findings ICD-10: Z00.00 ICD-9: V70.9 01/23/2016 Gastro-esophageal reflux disease without esophagitis ICD-10 : K21.9 ICD-9: 530.81 06/14/2015 Male erectile disorder ICD-10: F52.21 ICD-9: 607.84 [...] Reason For Visit Effective Dates Notes hypertension 03/14/2017 hypertension 09/11/2016 hypertension 03/07/2016 Annual [...] 88.8 fl 03/08/2016 Cbc With Differential Ord2 [place]% 10.8 % 03/08/2016 Cbc With Differential Ord2 [...] 1.66 K/ul 03/08/2016 Cbc With Differential Ord2 [place] ABS# 0.5 K/ul 03/08/2016 Cbc With Differential Ord2 Eos ABS# 0.1 K/ul 03/08/2016 Cbc With Differential Ord2 Baso ABS# 0.1 K/ul 03/08/2016 Comp Metabolic Rsi131 NA 137 mEq/L 03/08/2016 Comp Metabolic Eql061 K 3.8 mEq/L 03/08/2016 Comp Metabolic Gpm369 CL 100 mEq/L 03/08/2016 Comp Metabolic Cjv212 CO2 32.0 mEq/L 03/08/2016 Comp Metabolic Fgo665 ANION GAP 9 03/08/2016 Comp Metabolic Faq810 GLUCOSE 88 mg/dL 03/08/2016 Comp Metabolic Jkc296 Creat 1.1 mg/dL 03/08/2016 Comp Metabolic Ben355 eGFR 67 ml/min/1.73m2 03/08/2016 Comp Metabolic Viq723 BUN 17 mg/dL 03/08/2016 Comp Metabolic Bus375 B/C Ratio 15.0 Ratio 03/08/2016 Comp Metabolic Hyz080 CALCIUM 9.2 mg/dL 03/08/2016 Comp Metabolic Kms487 ALK PHOS 43 U/L 03/08/2016 Comp Metabolic Fjy142 AST(SGOT) 19 U/L 03/08/2016 Comp Metabolic Van980 ALT(SGPT) 17 U/L 03/08/2016 Comp Metabolic Tmf227 BILI T 1.1 mg/dL 03/08/2016 Comp Metabolic Nxf914 ALBUMIN 4.2 g/dL 03/08/2016 Comp Metabolic Kuk887 TPRO 7.1 g/dL 03/08/2016 Comp Metabolic Mpo428 GLOB 2.9 g/dL 03/08/2016 Comp Metabolic Tqm940 A/G Ratio 1.5 Ratio 03/08/2016 Comp Metabolic Wzo145 Osmo 275 mOsmo 03/08/2016 Tsh Ord6 hTSH II 2.21 uIU/mL 03/08/2016 Comp Metabolic Clr897 NA 139 mEq/L 06/15/2015 Comp Metabolic Uns581 K 4.0 mEq/L 06/15/2015 Comp Metabolic Xkt346 CL 103 mEq/L 06/15/2015 Comp Metabolic Mtk490 CO2 28.0 mEq/L 06/15/2015 Comp Metabolic Hte130 ANION GAP 12 06/15/2015 Comp Metabolic Sad880 GLUCOSE 79 mg/dL 06/15/2015 Comp Metabolic Qyl168 Creat 1.0 mg/dL 06/15/2015 Comp Metabolic Plv939 eGFR 74 ml/min/1.73m2 06/15/2015 Comp Metabolic Mei904 BUN 15 mg/dL 06/15/2015 Comp Metabolic Sxm870 B/C Ratio 14.4 Ratio 06/15/2015 Comp Metabolic Bhb998 CALCIUM 9.1 mg/dL 06/15/2015 Comp Metabolic Lgj899 ALK PHOS 30 U/L 06/15/2015 Comp Metabolic Nqz848 AST(SGOT) 20 U/L 06/15/2015 Comp Metabolic Amc309 ALT(SGPT) 15 U/L 06/15/2015 Comp Metabolic Jsf328 BILI T 1.0 mg/dL 06/15/2015 Comp Metabolic Obt633 ALBUMIN 4.0 g/dL 06/15/2015 Comp Metabolic Cbm447 TPRO 6.7 g/dL 06/15/2015 Comp Metabolic Fnm713 GLOB 2.7 g/dL 06/15/2015 Comp Metabolic Mmr212 A/G Ratio 1.5 Ratio 06/15/2015 Comp Metabolic Aaa628 Osmo 277 mOsmo 06/15/2015 Lipid Ord30 CHOL [...] 88.7 fl 06/15/2015 Cbc With Differential Ord2 MCH 30.0 pg 06/15/2015 Cbc With Differential Ord2 [place]% 14.5 % 06/15/2015 Cbc With Differential Ord2 [...] 1.33 K/ul 06/15/2015 Cbc With Differential Ord2 [place] ABS# 0.6 K/ul 06/15/2015 Cbc With Differential Ord2 Eos ABS# 0.2 K/ul 06/15/2015 Cbc With Differential Ord2 Baso ABS# 0.0 K/ul 06/15/2015 Cbc With Differential Ord2 New Analyzer Notice Please note new ref ranges starting 03-16-2015 due to implemntation of new five part differential hematolgy analyzer. 06/15/2015 Tsh Ord6 hTSH II 2.01 uIU/mL 06/15/2015 VIT D TOTL 9610878 VIT D TOTL 57 NG/ML 12/14/2013 CHEM 14 6961297 AST 18 U/L 12/14/2013 CHEM 14 8686009 ALT 14 IU/L 12/14/2013 CHEM 14 5725077 BUN 19 MG/DL 12/14/2013 CHEM 14 8689483 ALBUMIN 4.2 GM/DL 12/14/2013 CHEM 14 9821611 CHLORIDE 106 MMOL/L 12/14/2013 CHEM 14 6186309 BILI TOT 0.9 MG/DL 12/14/2013 CHEM 14 9376012 ALK PHOS 30 U/L 12/14/2013 CHEM 14 3639758 SODIUM 140 MMOL/L 12/14/2013 CHEM 14 3221881 CREATININE 1.10 MG/DL 12/14/2013 CHEM 14 5583256 CALCIUM 9.4 MG/DL 12/14/2013 CHEM 14 1757660 POTASSIUM 4.1 MMOL/L 12/14/2013 CHEM 14 1643241 PROT TOT 6.9 GM/DL 12/14/2013 CHEM 14 5757096 GLUCOSE 91 MG/DL 12/14/2013 CHEM 14 9161133 BICARB 30 MMOL/L 12/14/2013 CHEM 14 4128066 ANION GAP 4 MEQ/L 12/14/2013 LIPID GRP HDL TEST 56 MG/DL 12/14/2013 LIPID GRP TRIG 56 MG/DL 12/14/2013 LIPID GRP TEST LDL 138 MG/DL 12/14/2013 LIPID GRP CHOL 205 MG/DL 12/14/2013 LIPID GRP 0565995 RCHOL/HDL 3.66 RATIO 12/14/2013 LIPID GRP 8110796 NON-HDL CH 149 MG/DL 12/14/2013 CBC 4888363 WBC 4.1 10e9/L 12/14/2013 CBC 7190479 RBC 4.90 10e12/L 12/14/2013 CBC 6383338 HGB 14.6 g/dL 12/14/2013 CBC 2380141 HCT DET 42.2 % 12/14/2013 CBC 6452173 MCV 86.1 fL 12/14/2013 CBC 4135767 MCH 29.8 pg 12/14/2013 CBC 3655381 MCHC 34.6 g/dL 12/14/2013 CBC 3478826 PLT 166 10e9/L 12/14/2013 CBC 4044039 MPV 9.0 fL 12/14/2013 CBC 5371826 LAUREL % 52.6 % 12/14/2013 CBC 6621777 LY % 31.6 % 12/14/2013 CBC 4379973 MON % 11.9 % 12/14/2013 CBC 3014525 EOS % 3.2 % 12/14/2013 CBC 8156020 BASO % 0.7 % 12/14/2013 CBC 2765659 RDW 13.6 % 12/14/2013 CBC 7057659 ABS LAUREL 2.16 10e9/L 12/14/2013 CBC 5848386 ABS LYMPH 1.30 10e9/L 12/14/2013 CBC 2642542 ABS MONO 0.49 10e9/L 12/14/2013 CBC 3160175 ABS EOS 0.13 10e9/L 12/14/2013 CBC 1338117 ABS BASO 0.03 10e9/L 12/14/2013 CBC 9256007 RDW-SD 41.7 fL 12/14/2013 GFR CALC 7435760 GFR AA >60 ML/MIN 12/14/2013 GFR CALC 0903829 GFR NON-AA >60 ML/MIN 12/14/2013 TSH 5545740 TSH 2.444 uIU/ML 12/14/2013 CHEM 14 8806539 AST 20 U/L 12/22/2012 CHEM 14 3714998 ALT 18 IU/L 12/22/2012 CHEM 14 7145130 BUN 20 MG/DL 12/22/2012 CHEM 14 3652959 ALBUMIN 4.1 GM/DL 12/22/2012 CHEM 14 4159942 CHLORIDE 105 MMOL/L 12/22/2012 CHEM 14 9225214 BILI TOT 1.1 MG/DL 12/22/2012 CHEM 14 2496684 ALK PHOS 31 U/L 12/22/2012 CHEM 14 1391733 SODIUM 138 MMOL/L 12/22/2012 CHEM 14 7245411 CREATININE 1.07 MG/DL 12/22/2012 CHEM 14 8860713 CALCIUM 9.3 MG/DL 12/22/2012 CHEM 14 1391927 POTASSIUM 4.2 MMOL/L 12/22/2012 CHEM 14 5719696 PROT TOT 6.9 GM/DL 12/22/2012 CHEM 14 0282155 GLUCOSE 86 MG/DL 12/22/2012 CHEM 14 1751555 BICARB 30 MMOL/L 12/22/2012 CHEM 14 2975895 ANION GAP 3 MEQ/L 12/22/2012 TSH 5143857 TSH 1.886 uIU/ML 12/22/2012 GFR CALC 9072337 GFR AA >60 ML/MIN 12/22/2012 GFR CALC 0479412 GFR NON-AA >60 ML/MIN 12/22/2012 LIPID GRP HDL TEST 48 MG/DL 12/22/2012 LIPID GRP TRIG 60 MG/DL 12/22/2012 LIPID GRP TEST LDL 121 MG/DL 12/22/2012 LIPID GRP CHOL 181 MG/DL 12/22/2012 LIPID GRP RCHOL/HDL 3.77 RATIO 12/22/2012 CBC 2693302 WBC 4.1 10e9/L 12/22/2012 CBC 6550275 RBC 4.67 10e12/L 12/22/2012 CBC 2209991 HGB 14.1 g/dL 12/22/2012 CBC 9273918 HCT DET 40.6 % 12/22/2012 CBC 1883065 MCV 86.9 fL 12/22/2012 CBC 4327506 MCH 30.2 pg 12/22/2012 CBC 2758870 MCHC 34.7 g/dL 12/22/2012 CBC 4499939 PLT 170 10e9/L 12/22/2012 CBC 1648857 MPV 9.1 fL 12/22/2012 CBC 7511130 LAUREL % 49.2 % 12/22/2012 CBC 4013169 LY % 34.8 % 12/22/2012 CBC 0203874 MON % 12.1 % 12/22/2012 CBC 5133283 EOS % 3.4 % 12/22/2012 CBC 5488637 BASO % 0.5 % 12/22/2012 CBC 7353462 RDW 13.8 % 12/22/2012 CBC 8035761 ABS LAUREL 2.02 10e9/L 12/22/2012 CBC 8824939 ABS LYMPH 1.43 10e9/L 12/22/2012 CBC 0366652 ABS MONO 0.50 10e9/L 12/22/2012 CBC 1758682 ABS EOS 0.14 10e9/L 12/22/2012 CBC 8480809 ABS BASO 0.02 10e9/L 12/22/2012 CBC 0313108 RDW-SD 43.0 fL 12/22/2012 LIPID GRP HDL TEST 52 MG/DL 09/25/2011 LIPID GRP TRIG 48 MG/DL 09/25/2011 LIPID GRP TEST LDL 128 MG/DL 09/25/2011 LIPID GRP CHOL 190 MG/DL 09/25/2011 LIPID GRP RCHOL/HDL 3.65 RATIO 09/25/2011 TSH 0884561 TSH 1.923 uIU/ML 09/25/2011 GFR CALC 9622199 GFR AA >60 ML/MIN 09/25/2011 GFR CALC 7462828 GFR NON-AA >60 ML/MIN 09/25/2011 CHEM 14 5848304 AST 16 U/L 09/25/2011 CHEM 14 8318555 ALT 12 IU/L 09/25/2011 CHEM 14 7438902 BUN 28 MG/DL 09/25/2011 CHEM 14 8521922 ALBUMIN 4.2 GM/DL 09/25/2011 CHEM 14 1723406 CHLORIDE 105 MMOL/L 09/25/2011 CHEM 14 0573038 BILI TOT 0.9 MG/DL 09/25/2011 CHEM 14 7483920 ALK PHOS 35 U/L 09/25/2011 CHEM 14 7641885 SODIUM 138 MMOL/L 09/25/2011 CHEM 14 7460114 CREATININE 1.02 MG/DL 09/25/2011 CHEM 14 6222193 CALCIUM 9.2 MG/DL 09/25/2011 CHEM 14 0368480 POTASSIUM 4.1 MMOL/L 09/25/2011 CHEM 14 5724801 PROT TOT 6.7 GM/DL 09/25/2011 CHEM 14 0497083 GLUCOSE 85 MG/DL 09/25/2011 CHEM 14 6561383 BICARB 29 MMOL/L 09/25/2011 CHEM 14 7109400 ANION GAP 4 MEQ/L 09/25/2011 CBC 2013964 WBC 4.1 10e9/L 09/25/2011 CBC 3035227 RBC 4.71 10e12/L 09/25/2011 CBC 9531435 HGB 14.0 g/dL 09/25/2011 CBC 9975332 HCT DET 40.3 % 09/25/2011 CBC 0514621 MCV 85.6 fL 09/25/2011 CBC 6551846 MCH 29.7 pg 09/25/2011 CBC 5389773 MCHC 34.7 g/dL 09/25/2011 CBC 5316123 PLT 148 10e9/L 09/25/2011 CBC 0564739 MPV 9.1 fL 09/25/2011 CBC 9791275 LAUREL % 48.6 % 09/25/2011 CBC 6734363 LY % 36.6 % 09/25/2011 CBC 1278475 MON % 11.2 % 09/25/2011 CBC 9619589 EOS % 3.4 % 09/25/2011 CBC 3759813 BASO % 0.2 % 09/25/2011 CBC 4568787 RDW 13.2 % 09/25/2011 CBC 2861156 ABS LAUREL 1.99 10e9/L 09/25/2011 CBC 6971386 ABS LYMPH 1.50 10e9/L 09/25/2011 CBC 1483862 ABS MONO 0.46 10e9/L 09/25/2011 CBC 3899459 ABS EOS 0.14 10e9/L 09/25/2011 CBC 0110364 ABS BASO 0.01 10e9/L 09/25/2011 CBC 3330863 RDW-SD 40.9 fL 09/25/2011 Review of Systems [...] 1994 Ears/Nose/Throat oral cavity/pharynx/larynx Overall: no masses 11/24/2012 [...] tenderness 05/26/2012 None Full Exam - General 1995 Abdomen [...] 10/02/2011 dry, rough, scaly lesion to left pentecostal, right pentecostal, bridge of left nose x 2-removed using [...] nourished 09/20/2011 None Full Exam - General 1995 Constitutional general appearance Overall: well developed 09/20/2011 None Full Exam - General 1995 Cardiovascular extremities Overall: no clubbing 09/20/2011 None [...] Date PPPS, SUBSEQ VISIT CPT -4: G0439 01/23/2016 DESTRUCT PREMALG LESION CPT-4: 04126 10/02/2011 DESTRUCT PREMALG LES 2-14 CPT-4: 26847 10/02/2011 Vital Signs Date Vital 03/14/2017 Blood Pressure 1: 128/80 Code : 8480-6 BMI: 28.1 Code : 45754-8 Heart Rate 1 : 63 bpm Height: 5'9" SpO2: 99% Weight: 190 lbs 09/11/2016 Blood Pressure 1: 120/70 Code : 8480-6 BMI: 28.2 Code : 05461-9 Heart Rate 1 : 56 bpm Height: 5'9" SpO2: 97% Weight: 191 lbs 03/07/2016 Blood Pressure 1: 124/66 Code : 8480-6 BMI: 27.3 Code : 43632-6 Heart Rate 1 : 64 bpm Height: 5'9" SpO2: 98% Weight: 185 lbs 01/23/2016 Blood Pressure 1: 140/66 Code : 8480-6 BMI: 27.2 Code : 72832-1 Heart Rate 1 : 55 bpm Height: 5'9" SpO2: 98% Waist Measure (cm): 86 cm Weight: 184 lbs 11/09/2015 Blood Pressure 1: 132/80 Code : 8480-6 BMI: 26.9 Code : 15834-3 Heart Rate 1 : 60 bpm Height: 5'9" SpO2: 98% Weight: 182 lbs 08/09/2015 Blood Pressure 1: 122/72 Code : 8480-6 BMI: 27.0 Code : 26031-2 Heart Rate 1 : 61 bpm Height: 5'9" SpO2: 98% Weight: 182 lbs 8 oz 07/04/2015 Blood Pressure 1: 132/80 Code : 8480-6 BMI: 27.0 Code : 84839-9 Heart Rate 1 : 52 bpm Height: 5'9" SpO2: 98% Weight: 183 lbs 06/30/2015 Blood Pressure 1: 162/88 Code : 8480-6 Heart Rate 1: 58 bpm 06/14/2015 Blood Pressure 1: 170/96 Code : 8480-6 BMI: 27.3 Code : 84804-2 Heart Rate 1 : 55 bpm Height: 5'9" SpO2: 98% Weight: 185 lbs 03/14/2015 Blood Pressure 1: 152/80 Code : 8480-6 Blood Pressure 1: 136/82 Code: 8480-6 BMI: 27.5 Code: 18965-9 Heart Rate 1: 56 bpm Height: 5'9" SpO2: 98% Weight: 186 lbs 12/13/2014 Blood Pressure 1: 138/80 Code : 8480-6 BMI: 27.0 Code : 33112-0 Heart Rate 1 : 70 bpm Height: 5'9" Weight: 183 lbs 11/16/2014 Blood Pressure 1: 130/70 Code : 8480-6 Heart Rate 1: 64 bpm Height: Weight: 09/09/2014 Blood Pressure 1: 140/90 Code : 8480-6 BMI: 26.3 Code : 76368-2 Heart Rate 1 : 78 bpm Height: 5'9" Weight: 178 lbs 08/25/2014 Blood Pressure 1: 160/90 Code : 8480-6 BMI: 26.3 Code : 09677-4 Heart Rate 1 : 79 bpm Height: 5'9" SpO2: 97% Weight: 178 lbs 06/10/2014 Blood Pressure 1: 142/88 Code : 8480-6 BMI: 26.7 Code : 29213-5 Heart Rate 1 : 63 bpm Height: 5'9" SpO2: 97% Weight: 181 lbs 12/03/2013 Blood Pressure 1: 138/78 Code : 8480-6 BMI: 26.0 Code : 79859-4 Heart Rate 1 : 68 bpm Height: 5'9" SpO2: 98% Weight: 176 lbs 05/25/2013 Blood Pressure 1: 152/84 Code : 8480-6 Blood Pressure 2: 138/86 Code: 8480-6 BMI: 26.1 Code: 39949-8 Heart Rate 1: 80 bpm Height: 5'9" Weight: 177 lbs 11/24/2012 Blood Pressure 1: 124/68 Code : 8480-6 BMI: 25.4 Code : 65532-8 Heart Rate 1 : 80 bpm Height: 5'9" Weight: 172 lbs 05/26/2012 Blood Pressure 1: 120/58 Code : 8480-6 BMI: 26.1 Code : 09246-3 Heart Rate 1 : 72 bpm Height: 5'9" Respiratory Rate: 16 bpm Weight: 177 lbs 11/27/2011 Blood Pressure 1: 116/68 Code : 8480-6 BMI: 25.5 Code : 65086-8 Heart Rate 1 : 60 bpm Height: 5'9" Respiratory Rate: 16 bpm Weight: 172 lbs 8 oz 10/02/2011 Blood Pressure 1: 134/74 Code : 8480-6 Heart Rate 1: 60 bpm 09/20/2011 Blood Pressure 1: 116/60 Code : 8480-6 BMI: 25.1 Code : 76743-1 Heart Rate 1 : 80 bpm Height: 5'9" SpO2: 98% Weight: 170 lbs Functional Status No Functional Status data History of Present Illness Symptom Name Status Result Effective Date Notes hypertension Quality chronic 03/14/2017 None hypertension Onset [...] data Encounters Encounter Performer Location Codes Date ([id number]) [id number] EST. PATIENT, LEVEL IV Diagnosis: Essential (primary) hypertension[ICD10: I10] Diagnosis: Essential tremor[ICD10: G25.0] [facility] CPT- 4: 98204 03/14/2017 ([id number]) 01283 EST. PATIENT, LEVEL IV Diagnosis: Essential (primary) hypertension[ICD10: I10] Diagnosis: Essential tremor[ICD10: G25.0] [facility] CPT- 4: 51156 09/11/2016 ([id number]) 16974 EST. PATIENT, LEVEL IV Diagnosis: Essential (primary) hypertension[ICD10: I10] Diagnosis: Essential tremor[ICD10: G25.0] Bernadette Chau MD [facility] CPT- 4: 58775 03/07/2016 ([id number]) 39792 EST. PATIENT, LEVEL III Diagnosis: Essential (primary) hypertension[ICD10: I10] Diagnosis: Essential tremor[ICD10: G25.0] Bernadette Chau MD [facility] CPT- 4: 97045 11/09/2015 ([id number]) 32304 EST. PATIENT, LEVEL III Diagnosis: Essential (primary) hypertension[ICD10: I10] Bernadette Chau MD [facility] CPT-4: 55422 08/09/2015 ([id number]) 87473 EST. PATIENT, LEVEL III Diagnosis: Essential (primary) hypertension[ICD10: I10] Bernadette Chau MD [facility] CPT-4: 73701 07/04/2015 ([id number]) Miscellaneous no charge Diagnosis: Essential (primary) hypertension[ICD10: I10] Bernadette Chau MD [facility] CPT-4: 45876 06/30/2015 ([id number]) 65784 EST. PATIENT, LEVEL IV Diagnosis: Essential (primary) hypertension[ICD10: I10] Diagnosis: Male erectile disorder[ICD10: F52.21] Diagnosis: Gastro-esophageal reflux disease without esophagitis[ICD10: K21.9] Bernadette Chau MD [facility] CPT-4: 65943 06/14/2015 ([id number]) [id number] EST. PATIENT, LEVEL IV Diagnosis: Essential (primary) hypertension[ICD10: I10] Diagnosis: Low back pain[ICD10: M54.5] Diagnosis: Malignant neoplasm of prostate[ICD10: C61] Bernadette Chau MD [facility] CPT-4: 29975 03/14/2015 ([id number]) 14557 EST. PATIENT, LEVEL III Diagnosis: Essential (primary) hypertension[ICD10: I10] Bernadette Chau MD [facility] CPT-4: 79766 12/13/2014 ([id number]) 24745 EST. PATIENT, LEVEL II Diagnosis: ESSENTIAL HYPERTENSION[ICD9: 401.9] Bernadette Chau MD [facility] CPT-4: 88325 11/16/2014 ([id number]) 80202 EST. PATIENT, LEVEL III Diagnosis: ESSENTIAL HYPERTENSION[ICD9: 401.9] Diagnosis: GENERALIZED ANXIETY DISEASE[ICD9: 300.02] Bernadette Chau MD [facility] CPT-4: 90494 09/09/2014 ([id number]) 99753 EST. PATIENT, LEVEL IV Diagnosis: ESSENTIAL HYPERTENSION[ICD9: 401.9] Diagnosis: GENERALIZED ANXIETY DISEASE[ICD9: 300.02] Bernadette Chau MD [facility] CPT-4: 68274 08/25/2014 ([id number]) 77273 EST. PATIENT, LEVEL IV Diagnosis: ESSENTIAL HYPERTENSION[ICD9: 401.9] Diagnosis: GENERALIZED ANXIETY DISEASE[ICD9: 300.02] Diagnosis: ESOPHAGEAL REFLUX[ICD9: 530.81] Bernadette Chau MD [facility] CPT- 4: 33610 06/10/2014 ([id number]) 40491 EST. PATIENT, LEVEL IV Diagnosis: ESSENTIAL HYPERTENSION[ICD9: 401.9] Diagnosis: ESOPHAGEAL REFLUX[ICD9: 530.81] Bernadette Chau MD [facility] CPT- 4: 54259 12/03/2013 ([id number]) 45172 EST. 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 PATIENT, LEVEL IV Diagnosis: ESSENTIAL HYPERTENSION[SNOMED: 09001901] Diagnosis: Nausea[ICD9: 787.02] Diagnosis: ESOPHAGEAL REFLUX[ICD9: 530.81] Bernadette Chau MD, [facility] CPT- 4: 46466 11/24/2012 ([id number]) 31856 EST. 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 PATIENT, LEVEL III Diagnosis: ESSENTIAL HYPERTENSION[SNOMED: 22626616] [facility] CPT-4: 53527 11/27/2011 ([id number]) OFFICE VISIT, NEW - LEVEL 3 Diagnosis: ESSENTIAL HYPERTENSION[SNOMED: 69486200] Diagnosis: Impotence[ICD9: 607.84] Diagnosis: Osteoarthritis[ICD9: 715.90] [facility] CPT- 4: 02997 09/20/2011 Plan of Care Planned Activity Notes Codes Status Date Appointment: Bernadette Chau WPtel: [phone] [facility] (15 min) Moderate 03/14/2017 Patient Education: Patient Medication Summary Completed 03/14/2017 [facility]ment[phone] ([facility]) Moderate 09/11/2016 Patient Education: Patient Medication Summary Completed 09/11/2016 App[facility]ment: [phone] (15 min) Moderate 03/07/2016 Patient Education: Patient Medication Summary Completed 03/07/2016 [phone] [place] [facility] - Annual Wellness Visit 01/23/2016 Patient Education: Patient Medication Summary Completed 01/23/2016 Appointment: [phone] [place] (15 min) Moderate 11/09/2015 Patient Education: Patient Medication Summary Completed 11/09/2015 Patient Education: Hypertension Completed 11/09/2015 Appointment: Bernadette Chau WPtel: [phone] [facility] (15 min) Moderate 08/09/2015 Patient Education: Patient Medication Summary Completed 08/09/2015 Patient Education: Hypertension Completed 08/09/2015 Appointment: Bernadette Chau WPtel: [facility] (15 min) Moderate 07/04/2015 Patient Education: Patient Medication Summary Completed 07/04/2015 Patient Education: Hypertension Completed 07/04/2015 Patient Education: Patient Medication Summary Completed 06/30/2015 Appointment: Bernadette Chau WPtel: [facility] (30 min) Complex 06/14/2015 Patient Education: Patient Medication Summary Completed 06/14/2015 Appointment: Bernadette Chau WPtel: [facility] (15 min) Moderate 03/14/2015 Patient Education: Patient Medication Summary Completed 03/14/2015 Patient Education: Hypertension Completed 03/14/2015 Appointment: Bernadette Chau WPtel: [address] [place], [place] [phone] (15 min) Moderate 12/13/2014 Patient Education: Patient Medication Summary Completed 12/13/2014 Patient Education: Hypertension Completed 12/13/2014 Appointment: Bernadette Chau WPtel: [address] [place], [place] [address] Follow up 12/09/2014 Appointment: Nurse Visit 11/16/2014 Patient Education: Patient Medication Summary Completed 11/16/2014 Patient Education: Hypertension Completed 11/16/2014 Appointment: Bernadette Chau WPtel: [address] [place], [place] [address] [place] (15 min) Moderate 09/09/2014 Patient Education: Patient Medication Summary Completed 09/09/2014 Patient Education: Hypertension Completed 09/09/2014 Appointment: Bernadette Chau WPtel[facility] [place] (10 min) Simple 08/25/2014 Patient Education: Patient Medication Summary Completed 08/25/2014 Patient Education: Hypertension Completed 08/25/2014 Appointment: (15 min) Moderate 08/23/2014 Appointment: Bernadette Chau WPtel[facility] [facility] 06/10/2014 Patient Education: Patient Medication Summary Completed 06/10/2014 Patient Education: Hypertension Completed 06/10/2014 Appointment: Bernadette Chau WPtel: [facility] Follow up 12/03/2013 Patient Education: Patient Medication Summary Completed 12/03/2013 Appointment: Bernadette Chau WPtel: [address] [place], [place] [phone] Follow up 05/25/2013 Patient Education: Patient Medication Summary Completed 05/25/2013 Patient Education: Hypertension Completed 05/25/2013 Appointment: Bernadette Chau WPtel: [address] [place], [place] [phone] Follow up 11/24/2012 Patient Education: Patient Medication Summary Completed 11/24/2012 Patient Education: Hypertension Completed 11/24/2012 Appointment: Bernadette Chau WPtel: [address] [place], [place] [address] Established Patient Preventative visit 05/26/2012 Patient Education: Patient Medication Summary Completed 05/26/2012 Patient Education: Hypertension Completed 05/26/2012 Appointment: Bernadette Chau WPtel: [address] [place] [address] Follow up 11/27/2011 Patient Education: Patient Medication Summary Completed 11/27/2011 Patient Education: High Blood Pressure: Essential Hypertension Completed 2011 Appointment: Michelle Dutton [facility]Ptel[phone] [facility] Procedure 10/02/2011 Patient Education: Patient Medication Summary Completed 10/02/2011 Appointment: Bernadette Chau WPtel: [facility]5 [facility] New Patient 09/20/2011 Patient Education: Patient Medication Summary Completed 09/20/2011 Patient Education: High Blood Pressure: Essential Hypertension Completed 2011 Instructions No Instructions
--- OUTSIDE RECORDS SUMMARY | 2018-01-04 00:54 | XMS REPORT | Continuity of Care Document ---
Author Author [facility] Organization [facility] Address Unknown Phone Unavailable Allergies Active Description Code Type Severity Reaction Onset Reported/Identified Relationship to Patient Clinical Status Yes No Known Drug Allergies [id number] Drug Allergy Unknown N/A 10/20/2017 Medications There is no data. Problems Date Dx Coded Attending Type Code Diagnosis Diagnosed By 04/05/2015 MURALI WHITE, BONNIE Medina Ot C61 04/05/2015 MURALI HWITE, BONNIE Medina Ot M54.5 04/14/2015 BONNIE CARRION MD Ot C61 04/14/2015 MURALI WHITE, BONNIE Medina Ot M54.5 10/20/2017 MURALI WHITE, BONNIE Medina Ot C61 MALIGNANT NEOPLASM OF PROSTATE 10/20/2017 MURALI WHITE, BONNIE Medina Ot M54.5 LOW BACK PAIN 10/20/2017 DEVI ARITA MD Ot G20 PARKINSON'S DISEASE 10/20/2017 DEVI ARITA MD Ot G44.201 TENSION-TYPE HEADACHE, UNSPECIFIED, INTR 10/20/2017 DEVI ARITA MD Ot I10 ESSENTIAL (PRIMARY) HYPERTENSION 10/20/2017 DEVI ARITA MD Ot K21.9 GASTRO-ESOPHAGEAL REFLUX DISEASE WITHOUT 10/20/2017 DEVI ARITA MD Ot M54.2 CERVICALGIA 10/20/2017 DEVI ARITA MD Ot Z85.46 PERSONAL HISTORY OF MALIGNANT NEOPLASM O 10/20/2017 DEVI ARITA MD Ot Z90.79 ACQUIRED ABSENCE OF OTHER GENITAL ORGAN( 10/22/2017 DEVI ARITA MD Ot G20 PARKINSON'S DISEASE 10/22/2017 DEVI ARITA MD Ot G44.201 TENSION-TYPE HEADACHE, UNSPECIFIED, INTR 10/22/2017 DEVI ARITA MD Ot I10 ESSENTIAL (PRIMARY) HYPERTENSION 10/22/2017 DEVI ARITA MD Ot K21.9 GASTRO-ESOPHAGEAL REFLUX DISEASE WITHOUT 10/22/2017 DEVI ARITA MD Ot M54.2 CERVICALGIA 10/22/2017 LYLA WHITE, DEVI Benson Ot Z85.46 PERSONAL HISTORY OF MALIGNANT NEOPLASM O 10/22/2017 DEVI ARITA MD, Ot Z90.79 ACQUIRED ABSENCE OF OTHER GENITAL ORGAN( Procedures There is no data. Results Test Result Range Complete blood count (CBC) with automated white blood cell (WBC) differential - 01/03/18 22:29 Blood leukocytes automated count (number/volume) 4.8 10*3/uL 4.3-11.0 Blood erythrocytes automated count (number/volume) 4.53 10*6/uL 4.35-5.85 Venous blood hemoglobin measurement (mass/volume) 14.0 g/dL 13.3-17.7 Blood hematocrit (volume fraction) 38 % 40-54 Automated erythrocyte mean corpuscular volume 84 [foz_us] 80-99 Automated erythrocyte mean corpuscular hemoglobin (mass per erythrocyte) 31 pg 25-34 Automated erythrocyte mean corpuscular hemoglobin concentration measurement ( mass/volume) 37 g/dL 32-36 Automated erythrocyte distribution width ratio 13.7 % 10.0-14.5 Automated blood platelet count (count/volume) 183 10*3/uL 130-400 Automated blood platelet mean volume measurement 8.7 [foz_us] 7.4-10.4 Automated blood neutrophils/100 leukocytes 53 % 42-75 Automated blood lymphocytes/100 leukocytes 27 % 12-44 Blood monocytes/100 leukocytes 17 % 0-12 Automated blood eosinophils/100 leukocytes 1 % 0-10 Automated blood basophils/100 leukocytes 1 % 0-10 Blood neutrophils automated count (number/volume) 2.6 10*3 1.8-7.8 Blood lymphocytes automated count (number/volume) 1.3 10*3 1.0-4.0 Blood monocytes automated count (number/volume) 0.8 10*3 0.0-1.0 Automated eosinophil count 0.1 10*3/uL 0.0-0.3 Automated blood basophil count (count/volume) 0.0 10*3/uL 0.0-0.1 PT panel in platelet poor plasma by coagulation assay - 01/03/18 22:29 Prothrombin time (PT) in platelet poor plasma by coagulation assay 13.5 s 12.2-14.7 INR in platelet poor plasma or blood by coagulation assay 1.0 0.8-1.4 Activated partial thromboplastin time (aPTT) in platelet poor plasma bycoagulation assay - 01/03/18 22:29 Activated partial thromboplastin time (aPTT) in platelet poor plasma bycoagulation assay 34 s 24-35 Comprehensive metabolic panel - 01/03/18 22:29 Serum or plasma sodium measurement (moles/volume) 125 mmol/L 135-145 Serum or plasma potassium measurement (moles/volume) 3.5 mmol/L 3.6-5.0 Serum or plasma chloride measurement (moles/volume) 90 mmol/L 98-107 Carbon dioxide 23 mmol/L 21-32 Serum or plasma anion gap determination (moles/volume) 12 mmol/L 5-14 Serum or plasma urea nitrogen measurement (mass/volume) 11 mg/dL 7-18 Serum or plasma creatinine measurement (mass/volume) 1.18 mg/dL 0.60-1.30 Serum or plasma urea nitrogen/creatinine mass ratio 9 NRG Serum or plasma creatinine measurement with calculation of estimated glomerular filtration rate 60 NRG Serum or plasma glucose measurement (mass/volume) 124 mg/dL 70-105 Serum or plasma calcium measurement (mass/volume) 9.5 mg/dL 8.5-10.1 Serum or plasma total bilirubin measurement (mass/volume) 1.0 mg/dL 0.1-1.0 Serum or plasma alkaline phosphatase measurement (enzymatic activity/volume) 31 U/L 40-136 Serum or plasma aspartate aminotransferase measurement (enzymatic activity/ volume) 24 U/L 5-34 Serum or plasma alanine aminotransferase measurement (enzymatic activity/volume ) 24 U/L 0-55 Serum or plasma protein measurement (mass/volume) 7.1 g/dL 6.4-8.2 Serum or plasma albumin measurement (mass/volume) 4.4 g/dL 3.2-4.5 CALCIUM CORRECTED 9.2 mg/dL 8.5-10.1 Serum or plasma troponin i.cardiac measurement (mass/volume) - 01/03/18 22:29 Serum or plasma troponin i.cardiac measurement (mass/volume) < ng/ mL <0.30 Blood lactic acid measurement (moles/volume) - 01/03/18 23:10 Blood lactic acid measurement (moles/volume) 0.76 mmol/L 0.50-2.00 Encounters ACCT No. Visit Date/Time Discharge Status Pt. Type Provider Facility Loc./Unit Complaint [id number] 10/20/2017 02:37:00 10/20/2017 05:28:00 DIS Emergency LYLA WHITE, DEVI Benson [facility] ER NECK HEAD PAIN [id number] 03/14/2015 15:32:00 03/14/2015 23:59:59 CLS Outpatient MURALI WHITE, BONNIE Medina [facility] RAD [id number] 01/04/2018 00:05:00 ACT Inpatient FREDDY WHITE, MAYO Davis [facility] 4TH HYPONATREMIA, SINUS TACHYCARDIA,HYPOVOLEMIA ,
[2018-01-04] MEDS ORDERED: ONDANSETRON 4 MG/2 ML (SDV) Z0FRAN IV PRN (01:15)
[2018-01-04] MEDS ORDERED: GABAPENTIN 100 MG (NEURONTIN) CAP PO PRN (01:15)
[2018-01-04] MEDS: NS W/KCL 20 MEQ/L 1,000 ML IV SCH ×4 (01:39→17:39)
[2018-01-04 04:00] VITALS: BP 125/76
[2018-01-04 06:04] LABS: BASOPHILS % (AUTO) 1 % (0-10); EOSINOPHILS # (AUTO) 0.1 10^3/uL (0.0-0.3); EOSINOPHILS % (AUTO) 1 % (0-10); HEMATOCRIT 34 % (40-54); HEMOGLOBIN 12.4 G/DL (13.3-17.7); LYMPHOCYTES # (AUTO) 1.1 X 10^3 (1.0-4.0); LYMPHOCYTES % (AUTO) 30 % (12-44); MEAN CORPUSCULAR HEMOGLOBIN 31 PG (25-34); MEAN CORPUSCULAR HGB CONC 37 G/DL (32-36); MEAN CORPUSCULAR VOLUME 85 FL (80-99); MEAN PLATELET VOLUME 8.4 FL (7.4-10.4); MONOCYTES # (AUTO) 0.6 X 10^3 (0.0-1.0); MONOCYTES % (AUTO) 18 % (0-12); NEUTROPHILS # (AUTO) 1.8 X 10^3 (1.8-7.8); NEUTROPHILS % (AUTO) 50 % (42-75); PLATELET COUNT 175 10^3/uL (130-400); RED BLOOD COUNT 3.96 10^6/uL (4.35-5.85); RED CELL DISTRIBUTION WIDTH 13.7 % (10.0-14.5); WHITE BLOOD COUNT 3.6 10^3/uL (4.3-11.0)
[2018-01-04 06:21] LABS: BUN/CREATININE RATIO 9; CALCIUM 8.5 MG/DL (8.5-10.1); CARBON DIOXIDE 20 MMOL/L (21-32); CHLORIDE 98 MMOL/L (98-107); CREATININE SERUM 0.86 MG/DL (0.60-1.30); GFR ESTIMATED > 60; GLUCOSE 92 MG/DL (70-105); POTASSIUM 4.1 MMOL/L (3.6-5.0); SODIUM 127 MMOL/L (135-145)
[2018-01-04] MEDS: ACETAMINOPHEN 500 MG TAB (TYLENOL) PO PRN ×2 (06:23→15:08)
--- NOTE | 2018-01-04 06:42 | Diagnostic Imaging Report ---
Indication: Chest pain, tachycardia. Comparison: None. Discussion: Single portable upright view of the chest was obtained. The lungs are hyperinflated. Normal heart size. No focal consolidation, pleural fluid, or pneumothorax. No acute osseous abnormality. Impression: 1. No acute cardiopulmonary process. Dictated by: Dictated on workstation # [id number]
[2018-01-04 08:02] VITALS: BP 130/72
[2018-01-04] MEDS ORDERED: HYDROmorphone 2 MG/ML VIAL (DILAUDID) IV PRN ×2 (09:00→13:00)
[2018-01-04] MEDS ORDERED: methylPREDNISolone 125 MG (Solu-MEDROL) VIAL IVP ONE (09:00)
[2018-01-04] MEDS: GABAPENTIN 100 MG (NEURONTIN) CAP PO SCH ×2 (09:08→17:39)
[2018-01-04] MEDS: IBUPROFEN 600 MG (MOTRIN) TAB PO PRN ×2 (09:09→19:38)
--- NOTE | 2018-01-04 11:18 | History & Physical-Hospitalist ---
History of Present Illness HPI/Chief Complaint The patient is a 77-year-old white male who reported feeling increasingly lightheaded over the past 2-3 days. It is worse when standing. It is been associated with an increased heart rate as high as the 130 level on his home blood pressure monitor. He is been taking doxazosin for hypertension and has a history of Parkinson's disease. He has had problems with severe neck pain he first presented emergency room in October it is been acutely worse over at least the past week. He is scheduled to see a technical operations specialist after an MRI reportedly revealed some stenosis. He denies any problems with bowel or bladder control has been generally weak but just for the past 2-3 days. His biggest complaint upon my arrival with severe right sided non-radicular neck pain. His pain is to the point that if there is no relief he stated that life is not worth living. In the emergency room he was in sinus tachycardia with no other arrhythmias being noted and he was slightly hypotensive. After receiving IV fluids but pressure came up and heart rate has returned to normal currently in the 80s and regular. Date Seen 01/04/18 Time Seen by a Provider: 11:24 Attending Physician Mayo Hayes MD PCP Bernadette Chau MD Referring Physician Date of Admission Jan 04, 2018 at 00:05 Home Medications & Allergies Home Medications Reviewed patient Home Medication Reconciliation performed by pharmacy medication reconciliations electronic sales and service technician and/or nursing. Patients Allergies have been reviewed. Allergies Allergies Coded Allergies No Known Drug Allergies (Unverified10/20/17) Past Ihspout-Yffsro-Iwplbh Hx Past Med/Social Hx: Reviewed and Corrections made Patient Social History Alcohol Use: Denies Use Recreational Drug Use: No Smoking Status: Former Smoker Former Smoker, Quit: Mar 04, 1967 Type Used: Cigarettes 2nd Hand Smoke Exposure: No Physical Abuse Screen: No Sexual Abuse: No Recent Foreign Travel: No Contact w/other who traveled: No Recent Hopitalizations: No Recent Infectious Disease Expo: No Immunizations Up To Date Date of Influenza Vaccine: Dec 04, 2017 Seasonal Allergies Seasonal Allergies: No Past Medical History Surgeries: Orthopedic, Prostatectomy Cardiac: Hypertension Neurological: Parkinson's Disease HIV/AIDS: No Genitourinary: Prostate Problems Cancer: Prostate History of Blood Disorders: No Adverse Reaction to Blood Marshall: No Family History Patient reports no known family medical history. Review of Systems Constitutional: see HPI; No chills, No diaphoresis, No dizziness, No fever, No malaise, No weakness Psychiatric/Neurological: Depressed (Overnight the pain see history of present illness), Other (No numbness or focal weakness there are some diffuse weakness reported when standing just over the last day or 2.) Physical Exam Physical Exam Vital Signs Vital Signs - First Documented 01/03/18 22:25 Temp 97.3 Pulse 126 Resp 16 B/P (MAP) 121/82 (95) Pulse Ox 97 O2 Delivery Room Air Capillary Refill : Less Than 3 Seconds Height, Weight, BMI Height: 5'9.00" Weight: 173lbs. 0.0oz. 78.458728vl; 25.6 BMI Method:Stated General Appearance: WD/WN, Moderate Distress Neck: Other (Neck range of motion was slightly limited there is some muscle spasm over the posterior cervical muscles worse on the right side there is no spinous process pain to palpation) Respiratory: Chest Non Tender, Lungs Clear, Normal Breath Sounds, No Accessory Muscle Use, No Respiratory Distress Cardiovascular: Regular Rate, Rhythm, No Edema, No Gallop, No JVD, No Murmur, Normal Peripheral Pulses Gastrointestinal: Normal Bowel Sounds, No Organomegaly, No Pulsatile Mass, Non Tender, Soft Neurologic/Psychiatric: Alert, Oriented x3, No Motor/Sensory Deficits, Depressed Affect Results Results/Procedures Labs Laboratory Tests 01/03/18 22:29 01/04/18 05:55 Patient resulted labs reviewed. Assessment/Plan Admission Diagnosis 1. Sinus tachycardia and hypotension secondary to hypovolemia all likely due to combination of neck pain and antihypertensive medication. We'll continue IV fluids and hold antihypertensive medication for now. 2. Severe neck pain with reported cervical radiculopathy/stenosis following an MRI that this patient states was done at [facility] in [place]. We'll give 1 dose of IV Solu-Medrol due to severe pain initiate IV dye lauded continue anti- inflammatory medication provided that hyponatremia continues to improve. 3. Hyponatremia likely due to combination of pain and pain medication. Level is up from 125-127 this morning we'll continue saline and monitor daily basic metabolic panels. Admission Status: Inpatient Order (span 2 midnights) Reason for Inpatient Admission: As per number 1 Clinical Quality Measures DVT/VTE Risk/Contraindication: Risk Factor Score Per Nursin RFS Level Per Nursing on Admit: 2=Moderate HAYES,MAYO D MD Jan 04, 2018 11:18
[2018-01-04] MEDS: fentaNYL PATCH 25 MCG (DURAGESIC) TD SCH (11:44)
[2018-01-04 12:11] VITALS: BP 128/74
[2018-01-04] MEDS ORDERED: ROPI0.5T2 PO (12:25)
[2018-01-04] MEDS ORDERED: DIAZ5TAB3 PO (12:25)
[2018-01-04] MEDS ORDERED: IBUP-1773 PO (12:25)
[2018-01-04] MEDS ORDERED: POTA10TA6 PO (12:25)
[2018-01-04] MEDS ORDERED: GABA-486 PO (12:25)
[2018-01-04] MEDS ORDERED: CARV12.53 PO (12:25)
[2018-01-04] MEDS ORDERED: HYDR25TA4 PO (12:25)
[2018-01-04] MEDS ORDERED: BUSP15TA60 PO (12:25)
[2018-01-04] MEDS ORDERED: DOXA1TAB2 PO (12:25)
[2018-01-04] MEDS ORDERED: OMEG-160 PO (12:40)
[2018-01-04] MEDS ORDERED: ASPI81TA55 PO (12:40)
--- NOTE | 2018-01-04 13:01 | Consultation-Cardiology ---
HPI-Cardiology Cardiology Consultation: Date of Consultation 01/04/18 Time Seen by a Provider: 12:20 Date of Admission Attending Physician Jesus Alberto Schaffer MD Admitting Physician Bernadette Chau MD Consulting Physician LITTLE BERNABE MD, MA, FACP, FACC, FSCAI, CCDS HPI: Chief Complaint: CC: Dizziness, rapid heart beat 77 yo man admitted through ER last night with dizziness and a feeling of rapid heart beat. No cp or syncope. Mod exertional shortness of breath ER physician gave iv fluids and heart rate improved He notes continuing gen malaise Has chronic pain at the base of the neck Denies focal weakness of leg swelling or symptoms consistent with orthopnea or PND Review of Systems-Cardiology Review of Systems Constitutional: malaise, tiredness; No weight loss, No weight gain Eyes: No vision change Ears/Nose/Throat: No ear discharge, No nasal drainage, No recent hearing loss Respiratory: As described under HPI Cardiovascular: As described under HPI Gastrointestinal: No constipation, No diarrhea, No nausea, No vomiting Genitourinary: No dysuria, No hematuria Musculoskeletal: As describe under HPI Skin: No rash, No ulcerations Psychiatric/Neurological: tremors (chronic, involving R arm); No focal weakness , No syncope Hematologic: No bleeding abnormalities NNB-Virjuc-Fcuhke Hx Patient Social History Alcohol Use: Denies Use Recreational Drug Use: No Smoking Status: Former Smoker Type Used: Cigarettes 2nd Hand Smoke Exposure: No Recent Foreign Travel: No Recent Infectious Disease Expo: No Hospitalization with Isolation: Denies Physical Abuse Screen: No Sexual Abuse: No Immunizations Up To Date Date of Influenza Vaccine: Dec 04, 2017 Past Medical History PMH As described under Assessment. Family Medical History Family Medical History: No fam h/o early CAD or SCD Family History: Patient reports no known family medical history. Allergies and Home Medications Allergies Coded Allergies: No Known Drug Allergies (Unverified , 10/20/17) Home Medications Aspirin 81 Mg Tablet.dr, 81 MG PO HS, (Reported) Buspirone HCl 15 Mg Tablet, 15 MG PO BID, (Reported) Carvedilol 12.5 Mg Tablet, 12.5 MG PO BID, (Reported) Diazepam 5 Mg Tablet, 5 MG PO BID, (Reported) Doxazosin Mesylate 1 Mg Tablet, 0.5 MG PO BID, (Reported) Gabapentin 100 Mg Capsule, 100 MG PO DAILY, (Reported) Hydrochlorothiazide 25 Mg Tablet, 25 MG PO DAILY, (Reported) Ibuprofen 600 Mg Tablet, 600 MG PO TID, (Reported) [place]-3/Dha/Epa/Fish Oil 1 Each Capsule, 1 EACH PO HS, (Reported) Potassium Chloride 10 Meq Tablet.er, 10 MEQ PO UD, (Reported) 0900 ON SATURDAY, SATURDAY AND SATURDAY Ropinirole HCl 0.5 Mg Tablet, 0.5 MG PO BID, (Reported) Patient Home Medication List Home Medication List Reviewed: Yes Physical Exam-Cardiology Physical Exam Vital Signs/I&O 01/04/18 01/04/18 01/04/18 01/04/18 01:00 04:00 07:00 08:02 Temp 99.1 98.6 Pulse 77 65 66 78 Resp 20 18 B/P (MAP) 125/76 (92) 130/72 (91) Pulse Ox 98 96 O2 Delivery Room Air Room Air 01/04/18 12:11 Temp 98.9 Pulse 62 Resp 18 B/P (MAP) 128/74 (92) Pulse Ox 97 O2 Delivery Room Air Capillary Refill : Less Than 3 Seconds Constitutional: AAO x 3, well-developed, well-nourished HEENT: EOMI, hearing is well preserved; No xanthelasmas are seen Neck: carotid pulses are 2 + bilaterally, with good upstrokes Respiratory: No accessory muscle use; lungs clear to auscultation Cardiovascular: regular rate-rhythm, S1 and S2, systolic murmur (faint EULA at card base) Gastrointestinal: No tender; soft; No guarding, No rebound; audible bowel sounds Extremities: No clubbing, No cyanosis, No significant edema Neurologic/Psychiatric: oriented x 3, other (resting tremor of R hand and R forearm), grossly intact, power is 5/5 both on sides Skin: No rash on exposed areas, No ulcerations on exposed areas Data Review Labs Laboratory Tests 01/03/18 22:29: White Blood Count 4.8, Red Blood Count 4.53, Hemoglobin 14.0, Hematocrit 38L, Mean Corpuscular Volume 84, Mean Corpuscular Hemoglobin 31, Mean Corpuscular Hemoglobin Concent 37H, Red Cell Distribution Width 13.7, Platelet Count 183, Mean Platelet Volume 8.7, Neutrophils (%) (Auto) 53, Lymphocytes (%) (Auto) 27, Monocytes (%) (Auto) 17H, Eosinophils (%) (Auto) 1, Basophils (%) (Auto) 1, Neutrophils # (Auto) 2.6, Lymphocytes # (Auto) 1.3, Monocytes # (Auto) 0.8, Eosinophils # (Auto) 0.1, Basophils # (Auto) 0.0, Prothrombin Time 13.5, INR Comment 1.0, Activated Partial Thromboplast Time 34, Sodium Level 125*L, Potassium Level 3.5L, Chloride Level 90L, Carbon Dioxide Level 23, Anion Gap 12 , Blood Urea Nitrogen 11, Creatinine 1.18, Estimat Glomerular Filtration Rate 60 , BUN/Creatinine Ratio 9, Glucose Level 124H, Calcium Level 9.5, Corrected Calcium 9.2, Total Bilirubin 1.0, Aspartate Amino Transf (AST/SGOT) 24, Alanine Aminotransferase (ALT/SGPT) 24, Alkaline Phosphatase 31L, Troponin I < 0.30, Total Protein 7.1, Albumin 4.4 01/03/18 23:10: Lactic Acid Level 0.76 01/04/18 00:17: Urine Color YELLOW, Urine Clarity CLEAR, Urine pH 7, Urine Specific [place] 1.010L, Urine Protein NEGATIVE, Urine Glucose (UA) NEGATIVE, Urine Ketones NEGATIVE, Urine Nitrite NEGATIVE, Urine Bilirubin NEGATIVE, Urine Urobilinogen NORMAL, Urine Leukocyte Esterase NEGATIVE, Urine RBC (Auto) NEGATIVE, Urine RBC NONE, Urine WBC NONE, Urine Squamous Epithelial Cells RARE, Urine Crystals NONE , Urine Bacteria NEGATIVE, Urine Casts NONE, Urine Mucus NEGATIVE, Urine Culture Indicated NO 01/04/18 05:55: White Blood Count 3.6L, Red Blood Count 3.96L, Hemoglobin 12.4L, Hematocrit 34L , Mean Corpuscular Volume 85, Mean Corpuscular Hemoglobin 31, Mean Corpuscular Hemoglobin Concent 37H, Red Cell Distribution Width 13.7, Platelet Count 175, Mean Platelet Volume 8.4, Neutrophils (%) (Auto) 50, Lymphocytes (%) (Auto) 30, Monocytes (%) (Auto) 18H, Eosinophils (%) (Auto) 1, Basophils (%) (Auto) 1, Neutrophils # (Auto) 1.8, Lymphocytes # (Auto) 1.1, Monocytes # (Auto) 0.6, Eosinophils # (Auto) 0.1, Basophils # (Auto) 0.0, Sodium Level 127L, Potassium Level 4.1, Chloride Level 98, Carbon Dioxide Level 20L, Anion Gap 9, Blood Urea Nitrogen 8, Creatinine 0.86, Estimat Glomerular Filtration Rate > 60, BUN/ Creatinine Ratio 9, Glucose Level 92, Calcium Level 8.5 Laboratory Tests 01/03/18 22:29 01/04/18 05:55 A/P-Cardiology Assessment/Admission Diagnosis Sinus tach due to dehydration due to diuretic therapy for hypertension Hyponatremia, likely due to chronic diuretic therapy Hypertension Parkinsonism Chronic neck pain Discussion and Recomendations * D/c diuretics * iv fluids * Hold bp meds and add back as needed and as tolerated * Monitor labs * I spoke with him and his fam and answered questions in detail * ECG Clinical Quality Measures DVT/VTE Risk/Contraindication: Risk Factor Score Per Nursin RFS Level Per Nursing on Admit: 2=Moderate LITTLE BERNABE MD FACP FAC CCDS Jan 04, 2018 13:01
[2018-01-04] MEDS: DIAZEPAM 5 MG (VALIUM) TABLET PO SCH ×2 (15:09→21:45)
[2018-01-04] MEDS: HYDROmorphone 2 MG/ML VIAL (DILAUDID) IV PRN ×2 (15:58→20:09)
[2018-01-04 16:47] VITALS: BP 136/90
[2018-01-04 20:20] VITALS: BP 181/90
[2018-01-04] MEDS ORDERED: DIAZEPAM 5 MG (VALIUM) TABLET PO SCH (21:00)
[2018-01-04] MEDS: busPIRone 15 MG (BUSPAR) TABLET PO SCH (21:45)
[2018-01-04] MEDS: rOPINIRole 0.25 MG (REQUIP) TAB PO SCH (21:45)
[2018-01-05] VITALS: BP 174/90
[2018-01-05] MEDS: NS W/KCL 20 MEQ/L 1,000 ML IV SCH ×2 (00:23→06:35)
[2018-01-05] MEDS: HYDROmorphone 2 MG/ML VIAL (DILAUDID) IV PRN ×2 (00:43→05:17)
[2018-01-05] MEDS: GABAPENTIN 100 MG (NEURONTIN) CAP PO SCH ×3 (01:32→17:15)
[2018-01-05 04:00] VITALS: BP 145/70
[2018-01-05 05:30] LABS: BASOPHILS % (AUTO) 0 % (0-10); EOSINOPHILS % (AUTO) 0 % (0-10); HEMATOCRIT 36 % (40-54); HEMOGLOBIN 12.4 G/DL (13.3-17.7); LYMPHOCYTES # (AUTO) 1.3 X 10^3 (1.0-4.0); LYMPHOCYTES % (AUTO) 16 % (12-44); MEAN CORPUSCULAR HEMOGLOBIN 31 PG (25-34); MEAN CORPUSCULAR HGB CONC 35 G/DL (32-36); MEAN CORPUSCULAR VOLUME 89 FL (80-99); MEAN PLATELET VOLUME 8.8 FL (7.4-10.4); MONOCYTES # (AUTO) 1.1 X 10^3 (0.0-1.0); MONOCYTES % (AUTO) 14 % (0-12); NEUTROPHILS # (AUTO) 5.4 X 10^3 (1.8-7.8); NEUTROPHILS % (AUTO) 69 % (42-75); PLATELET COUNT 162 10^3/uL (130-400); RED BLOOD COUNT 4.02 10^6/uL (4.35-5.85); RED CELL DISTRIBUTION WIDTH 13.9 % (10.0-14.5); WHITE BLOOD COUNT 7.8 10^3/uL (4.3-11.0)
[2018-01-05 06:00] LABS: ALANINE AMINOTRANSFERASE 21 U/L (0-55); ALBUMIN 3.7 GM/DL (3.2-4.5); ALKALINE PHOSPHATASE 25 U/L (40-136); BILIRUBIN,TOTAL 0.6 MG/DL (0.1-1.0); BUN/CREATININE RATIO 9; CALCIUM 8.7 MG/DL (8.5-10.1); CARBON DIOXIDE 17 MMOL/L (21-32); CHLORIDE 102 MMOL/L (98-107); CREATININE SERUM 0.81 MG/DL (0.60-1.30); GFR ESTIMATED > 60; GLUCOSE 98 MG/DL (70-105); MAGNESIUM 2.1 MG/DL (1.8-2.4); POTASSIUM 4.4 MMOL/L (3.6-5.0); SODIUM 130 MMOL/L (135-145); TOTAL PROTEIN 6.1 GM/DL (6.4-8.2)
[2018-01-05 08:02] VITALS: BP 146/89
[2018-01-05] MEDS: busPIRone 15 MG (BUSPAR) TABLET PO SCH ×2 (08:25→19:56)
[2018-01-05] MEDS: DIAZEPAM 5 MG (VALIUM) TABLET PO SCH (08:25)
[2018-01-05] MEDS: rOPINIRole 0.25 MG (REQUIP) TAB PO SCH ×2 (08:26→19:56)
[2018-01-05] MEDS: IBUPROFEN 600 MG (MOTRIN) TAB PO PRN (08:26)
[2018-01-05] MEDS ORDERED: DIAZEPAM 5 MG (VALIUM) TABLET PO PRN (11:15)
--- NOTE | 2018-01-05 11:22 | Progress Note-Hospitalist ---
Subjective HPI/CC On Admission Date Seen by Provider: Jan 05, 2018 Time Seen by Provider: 11:10 The patient is a 77-year-old white male who reported feeling increasingly lightheaded over the past 2-3 days. It is worse when standing. It is been associated with an increased heart rate as high as the 130 level on his home blood pressure monitor. He is been taking doxazosin for hypertension and has a history of Parkinson's disease. He has had problems with severe neck pain he first presented emergency room in October it is been acutely worse over at least the past week. He is scheduled to see a career development specialist after an MRI reportedly revealed some stenosis. He denies any problems with bowel or bladder control has been generally weak but just for the past 2-3 days. His biggest complaint upon my arrival with severe right sided non-radicular neck pain. His pain is to the point that if there is no relief he stated that life is not worth living. In the emergency room he was in sinus tachycardia with no other arrhythmias being noted and he was slightly hypotensive. After receiving IV fluids but pressure came up and heart rate has returned to normal currently in the 80s and regular. Subjective/Events-last exam Patient reports neck pain has improved and is able to get some sleep last night. This morning however about an hour after taking his morning medication he is feeling quite groggy and did not feel stable to get the bathroom and back without assistance. Last night I been contacted by nursing staff and the patient wanted his Valium resumed as he is feeling anxious. I was told his dose was 5 mg twice a day that he was used to taking on a regular basis. I resume necessary received a dose last night and another dose this morning. He denies any radicular symptoms denies any problems with help patient's or chest discomfort. He appeared slightly groggy but answered questions appropriately and remained awake during the interview. Focused Exam Lactate Level 01/03/18 23:10: Lactic Acid Level 0.76 Objective Exam Vital Signs Vital Signs Date Time Temp Pulse Resp B/P (MAP) Pulse Ox O2 Delivery O2 Flow Rate FiO2 01/05/18 08:02 96.9 82 18 146/89 (108) 94 Room Air Capillary Refill : Less Than 3 Seconds General Appearance: No Apparent Distress, WD/WN Neck: Other (Right sternocleidomastoid stiffness mild soreness to palpation he has about 60 of rotation toward the right and left which don't significantly aggravate pain today. No erythema or warmth is noted there is evidence for muscle spasm with no spinous process pain to palpation.) Respiratory: Chest Non Tender, Lungs Clear, Normal Breath Sounds, No Accessory Muscle Use, No Respiratory Distress Cardiovascular: Regular Rate, Rhythm, No Edema, No Gallop, No JVD, No Murmur, Normal Peripheral Pulses Results/Procedures Lab Laboratory Tests 01/05/18 04:15 Patient resulted labs reviewed. Assessment/Plan Assessment and Plan Assess & Plan/Chief Complaint 1. Severe cervicalgia likely due to cervical impingement improved. Patient oversedated due to combination of narcotic therapy and benzodiazepine. Patient states that he has not eaten normally take 5 mg of Valium twice a day but half a tablet on average once a day we'll switch to 2.5 mg by mouth every 12 when necessary anxiety and discuss the importance of not getting up without excessive assistance until feeling stable on his feet. Continue Duragesic 25 g patch and the patient was advised to see about now utilizing hydrocodone for breakthrough pain and trying to get by without hydromorphone. He does report he has a visit with Dr. Moy's nurse practitioner on 14 January the soonest he could get in unfortunately. 2. Presyncope likely due to orthostatic hypotension aggravated by this patient' s Parkinson's disease I would continue to avoid Cardura and base blood pressure control on sitting or standing pressures to avoid overtreatment. Will DC IV saline. Continue to hold antihypertensive medication as patient systolics have not been higher in the 140 range off treatment thus far. 3. Hyponatremia multifactorial likely med related small possibility that hyperthyroidism is contributing as well likely med culprits nonsteroidal medication in combination with a thiazide diuretic. Sodium level continues to improve up to 130 repeat basic metabolic panel in the a.m. 4. TSH suggests hyperthyroidism likely mild as the patient even off beta flora therapy has not been significantly tachycardic, will obtain thyroid analyzer panel as well as thyroid receptor antibody level. If the patient is becoming tachycardic will need resumption of beta flora therapy. Clinical Quality Measures DVT/VTE Risk/Contraindication: Risk Factor Score Per Nursin RFS Level Per Nursing on Admit: 2=Moderate MAYO HAYES MD Jan 05, 2018 11:22
[2018-01-05 12:07] VITALS: BP 142/72
--- NOTE | 2018-01-05 12:24 | Progress Note-Cardiology ---
Cardiology SOAP Progress Note Subjective: Neck discomfort is improved No cp or palp or syncope or shortness of breath at rest Objective: I&O/Vital Signs 01/05/18 01/05/18 01/05/18 01/05/18 01:00 04:00 07:00 08:02 Temp 99.6 96.9 Pulse 69 83 86 82 Resp 16 18 B/P (MAP) 145/70 (95) 146/89 (108) Pulse Ox 98 94 O2 Delivery Room Air Room Air 01/05/18 12:07 Temp 97.2 Pulse 80 Resp 20 B/P (MAP) 142/72 (95) Pulse Ox 96 O2 Delivery Room Air 01/05/18 00:00 Intake Total 1695 ml Balance 1695 ml Weight (Pounds): 173 Weight (Ounces): 0.0 Weight (Calculated Kilograms): 78.031914 Constitutional: AAO x 3, well-developed, well-nourished Respiratory: No accessory muscle use; lungs clear to auscultation Cardiovascular: regular rate-rhythm, S1 and S2, systolic murmur (faint EULA at card base) Gastrointestional: No tender; soft; No guarding, No rebound; audible bowel sounds Extremities: No clubbing, No cyanosis, No significant edema Neurologic/Psychiatric: oriented x 3, other (resting tremor of R hand and R forearm), grossly intact, power is 5/5 both on sides Skin: No rash on exposed areas, No ulcerations on exposed areas Results/Procedures: Labs Laboratory Tests 01/05/18 04:15: White Blood Count 7.8, Red Blood Count 4.02L, Hemoglobin 12.4L, Hematocrit 36L, Mean Corpuscular Volume 89, Mean Corpuscular Hemoglobin 31, Mean Corpuscular Hemoglobin Concent 35, Red Cell Distribution Width 13.9, Platelet Count 162, Mean Platelet Volume 8.8, Neutrophils (%) (Auto) 69, Lymphocytes (%) (Auto) 16, Monocytes (%) (Auto) 14H, Eosinophils (%) (Auto) 0, Basophils (%) (Auto) 0, Neutrophils # (Auto) 5.4, Lymphocytes # (Auto) 1.3, Monocytes # (Auto) 1.1H, Eosinophils # (Auto) 0.0, Basophils # (Auto) 0.0, Sodium Level 130L, Potassium Level 4.4, Chloride Level 102, Carbon Dioxide Level 17L, Anion Gap 11, Blood Urea Nitrogen 7, Creatinine 0.81, Estimat Glomerular Filtration Rate > 60, BUN/ Creatinine Ratio 9, Glucose Level 98, Calcium Level 8.7, Corrected Calcium 8.9, Magnesium Level 2.1, Total Bilirubin 0.6, Aspartate Amino Transf (AST/SGOT) 23, Alanine Aminotransferase (ALT/SGPT) 21, Alkaline Phosphatase 25L, Total Protein 6.1L, Albumin 3.7, Thyroid Stimulating Hormone (TSH) 0.05L Microbiology 01/03/18 Blood Culture - Preliminary, Resulted No growth 01/04/18 Urine Culture - Final, Complete NO GROWTH Laboratory Tests 01/03/18 22:29 01/04/18 05:55 01/05/18 04:15 A/P: Assessment: Sinus tach due to dehydration due to diuretic therapy for hypertension, improved after hydration Hyponatremia, likely due to chronic diuretic therapy, improved after hydration Echo of 01/05/18: LVEF 55-65%, mild to mod enlargement of RA and of both atria, mild MR, mod TR, PASP 50-55 mmHg Mod pulm htn (see echo results above), etiology undetermined Low TSH during this hospitalization, suggestive of hyperthyroidism, Dr Schaffer managing Hypertension Parkinsonism Chronic neck pain Plan: * Agree with current management plan * I spoke with him, informed him of echo results, advised further w/u for pulm htn with his pcp as outpt, and answered questions in detail LITTLE BERNABE MD FACP [facility] CCDS Jan 05, 2018 12:24
[2018-01-05 16:20] VITALS: BP 162/82
[2018-01-05 20:16] VITALS: BP 150/82
[2018-01-06] VITALS (8 sets, daily range): BP systolic 148–180; BP diastolic 72–90
[2018-01-06] MEDS: IBUPROFEN 600 MG (MOTRIN) TAB PO PRN (00:15)
[2018-01-06] MEDS: GABAPENTIN 100 MG (NEURONTIN) CAP PO SCH ×3 (00:24→17:32)
[2018-01-06 07:16] LABS: BUN/CREATININE RATIO 9; CALCIUM 8.5 MG/DL (8.5-10.1); CARBON DIOXIDE 21 MMOL/L (21-32); CHLORIDE 101 MMOL/L (98-107); CREATININE SERUM 0.85 MG/DL (0.60-1.30); GFR ESTIMATED > 60; GLUCOSE 92 MG/DL (70-105); POTASSIUM 4.2 MMOL/L (3.6-5.0); SODIUM 132 MMOL/L (135-145)
[2018-01-06 07:37] LABS: TSH (THYROID ANALYZER) 1.78 UIU/ML (0.35-4.94)
--- NOTE | 2018-01-06 08:54 | Progress Note ---
Focused Exam Lactate Level 01/03/18 23:10: Lactic Acid Level 0.76 Objective Exam Last Set of Vital Signs Vital Signs Date Time Temp Pulse Resp B/P (MAP) Pulse Ox O2 Delivery O2 Flow Rate FiO2 01/06/18 08:21 99.8 72 20 180/90 (120) 98 Room Air Capillary Refill : Less Than 3 Seconds I&O Intake and Output 01/06/18 00:00 Intake Total 2535 ml Output Total 600 ml Balance 1935 ml Intake Oral 1835 ml IV Total 700 ml Output Urine Total 600 ml # Voids 6 Results Lab Laboratory Tests 01/06/18 05:29: Sodium Level 132L, Potassium Level 4.2, Chloride Level 101, Carbon Dioxide Level 21, Anion Gap 10, Blood Urea Nitrogen 8, Creatinine 0.85, Estimat Glomerular Filtration Rate > 60, BUN/Creatinine Ratio 9, Glucose Level 92, Calcium Level 8.5, TSH [place] Testing 1.78 Microbiology 01/03/18 Blood Culture - Preliminary, Resulted No growth 01/04/18 Urine Culture - Final, Complete NO GROWTH Clinical Quality Measures DVT/VTE Risk/Contraindication: Risk Factor Score Per Nursin RFS Level Per Nursing on Admit: 2=Moderate BONNIE CARRION MD Jan 06, 2018 08:54
[2018-01-06] MEDS: rOPINIRole 0.25 MG (REQUIP) TAB PO SCH ×2 (09:14→20:22)
[2018-01-06] MEDS: busPIRone 15 MG (BUSPAR) TABLET PO SCH ×2 (09:15→20:22)
[2018-01-06] MEDS: CARVEDILOL 6.25 MG (COREG) TAB PO SCH ×2 (09:15→20:22)
[2018-01-06] MEDS: ASPIRIN 81 MG CHEW (CHILDREN'S ASA) PO SCH ×2 (09:17→20:23)
--- NOTE | 2018-01-06 09:37 | Progress Note-Cardiology ---
Cardiology SOAP Progress Note Objective: I&O/Vital Signs 01/07/18 01/07/18 01/07/18 01/07/18 03:52 08:16 09:26 12:00 Temp 97.2 97.8 98.9 Pulse 71 59 62 Resp 18 20 20 B/P (MAP) 148/82 (104) 150/88 (108) 160/82 (108) Pulse Ox 94 98 99 O2 Delivery Room Air Room Air Room Air Room Air 01/07/18 00:00 Intake Total 1450 ml Balance 1450 ml Weight (Pounds): 173 Weight (Ounces): 0.0 Weight (Calculated Kilograms): 78.857265 Constitutional: AAO x 3, well-developed, well-nourished Respiratory: No accessory muscle use; lungs clear to auscultation Cardiovascular: regular rate-rhythm, S1 and S2, systolic murmur (faint EULA at card base) Gastrointestional: No tender; soft; No guarding, No rebound; audible bowel sounds Extremities: No clubbing, No cyanosis, No significant edema Neurologic/Psychiatric: oriented x 3, other (resting tremor of R hand and R forearm), grossly intact, power is 5/5 both on sides Skin: No rash on exposed areas, No ulcerations on exposed areas Results/Procedures: Labs Microbiology 01/03/18 Blood Culture - Preliminary, Resulted No growth 01/04/18 Urine Culture - Final, Complete NO GROWTH A/P: Assessment: Sinus tach due to dehydration due to diuretic therapy for hypertension, improved after hydration Hyponatremia, likely due to chronic diuretic therapy, improved after hydration Echo of 01/05/18: LVEF 55-65%, mild to mod enlargement of RA and of both atria, mild MR, mod TR, PASP 50-55 mmHg Mod pulm htn (see echo results above), etiology undetermined Low TSH during this hospitalization, suggestive of hyperthyroidism, Dr Schaffer managing Hypertension Parkinsonism Chronic neck pain Plan: * Agree with current management plan * We advised further w/u for pulm htn with his pcp as outpt * BP not well controlled ANA RECIO Jan 06, 2018 09:36
--- NOTE | 2018-01-06 11:57 | Physical Therapy Evaluation ---
PT Evaluation-General Medical Diagnosis Admission Date Jan 04, 2018 at 12:52 Medical Diagnosis: HTN, Neck Pain Onset Date: Jan 04, 2018 Therapy Diagnosis Therapy Diagnosis: General Weakness, Debility Height/Weight Height (Feet): 5 Height (Inches): 9.00 Weight (Pounds): 173 Weight (Ounces): 0.0 Precautions Precautions/Isolations: Fall Prevention, Standard Precautions Weight Bear Status Right Lower Extremity: Right Left Lower Extremity: Left Full Weight Bearing Referral Physician: Jesus Alberto Schaffer MD Reason for Referral: Evaluation/Treatment Medical History Pertinent Medical History: HTN, Parkinson's Current History Patient admitted to hospital for neck pain. Patient reported that him and his spouse are currently looking into moving into assisted living Social History Home: Single Level Current Living Status: Spouse Entry Into Home: Stairs With Railing PT Steps Into Home: 3 PT Steps Inside Home: 0 Prior/Core FIM Prior Level of Function Functional [place] Measure 0=Not Assessed/NA 4=Minimal Assistance 1=Total Assistance 5=Supervision or Setup 2=Maximal Assistance 6=Modified [place] 3=Moderate Assistance 7=Complete IndependenceIRFPAI Quality Coding Scale 6 Independent with activity with or without an assistive device 5 Patient requires set up or clean up by helper. Patient completes activity by themselves 4 Supervision or touching assist (CGA). [place] provide cues , steadying assist 3 The helper provides less than half the effort to complete the activity 2 The helper provides more than half the effort to complete the activity 1 Dependent. The helper does all the effort to complete an activity 7 Patient refused to complete or attempt activity 9 The patient did not perform the activity before the current illness or injury 88 Not attempted due to Medical conditions or safety concerns Bed Mobility: 5 Transfers (B,C,W/C) (FIM): 5 Gait: 5 Stairs: 5 PT Evaluation-Current Subjective Patient awake in bed watching tv with his . Pt agreed to evaluation from PT. Pain Numeric Pain Scale: 0-No Pain Location: No Pain Reported Objective Patient Orientation: Normal For Age Problem Solving: Fair ROM/Strength ROM Upper Extremities WNL ROM Lower Extremities WNL Strength Upper Extremities WNL Strength Lower Extremities 4+/5 BLE Integumentary/Posture Bowel Incontinence: No Bladder Incontinence: No Neuromuscular (Tone, Coordination, Reflexes) Patient has a resting tremor through UEs during activities, Pts reflexes were NT. Sensory Vision: Wears Glasses Hearing: Functional Sensation Right Upper Extremit: Intact Sensation Left Upper Extremity: Intact Sensation Right Lower Extremit: Intact Sensation Left Lower Extremity: Intact Transfers Functional [place] Measure 0=Not Assessed/NA 4=Minimal Assistance 1=Total Assistance 5=Supervision or Setup 2=Maximal Assistance 6=Modified [place] 3=Moderate Assistance 7=Complete [place] Transfers (B, C, W/C) (FIM): 5 Scootin Rollin Supine to/from Sit: 6 Sit to/from Stand: 5 Gait Mode of Locomotion: Walk Anticipated Mode of Locomotion: Walk Gait (FIM): 5 Distance (FIM): 3=150 ft Distance: 200' Gait Level of Assist: 5 Gait Persons Needed: 1 Gait Assistive Device: FWW Comments/Gait Description noted shuffle gait sequence with FWW use Balance Sitting Static: Normal Sitting Dynamic: Normal Standing Static: Fair Standing Dynamic: Fair Assessment/Needs Patient was able to ambulate with SBA for 200' with a FWW. Patient did not show signs of fatigue but did say his current meds make him light headed at times. Patient did not report lightheaded sensation during ambulation but should be monitored closely. Pt has a shuffled gait pattern and shortened stride length throughout ambulation. Rehab Potential: Fair PT Fdc Goals Fdc Goals PT Biomedical Equipment Tech Goals Time Frame: Jan 10, 2018 Transfers (B,C,W/C) (FIM): 6 Gait (FIM): 6 Gait distance (FIM): 3=150 ft Distance: 300' Gait Level of Assist: 6 Gait Assistive Device: FWW PT Plan Problem List Problem List: Activity Tolerance, Functional Strength, Safety, Balance, Gait, Transfer, Bed Mobility Treatment/Plan Treatment Plan: Continue Plan of Care Treatment Plan: Bed Mobility, Education, Functional Strength, Gait, Safety, Therapeutic Exercise, Transfers Treatment Duration: Jan 10, 2018 Frequency: 5 times per week Estimated Hrs Per Day: .25 hour per day Patient and/or Family Agrees t: Yes Safety Risks/Education Patient Education: Gait Training, Steps, Safety Issues Discharge Recommendations Therapy D/C Recommendations: Home w/ Family Support Equpiment Recommendations-D/C: Front Wheeled Walker Time/GCodes Time In: 1133 Time Out: 1146 Total Billed Treatment Time: 13 Total Billed Treatment 1 visit EVLowC - 13' G Codes Necessary: JOEY Chisholm PT Jan 06, 2018 11:57
--- NOTE | 2018-01-06 12:30 | Progress Note-Cardiology ---
Cardiology SOAP Progress Note Subjective: No cp or palp or syncope Dizziness with Valium and Neurontin Objective: I&O/Vital Signs 01/06/18 01/06/18 01/06/18 01/06/18 01:00 04:33 07:00 08:00 Temp 97.7 Pulse 60 76 74 Resp 17 B/P (MAP) 158/83 (108) Pulse Ox 97 O2 Delivery Room Air Room Air 01/06/18 08:21 Temp 99.8 Pulse 72 Resp 20 B/P (MAP) 180/90 (120) Pulse Ox 98 O2 Delivery Room Air 01/06/18 00:00 Intake Total 1385 ml Output Total 600 ml Balance 785 ml Weight (Pounds): 173 Weight (Ounces): 0.0 Weight (Calculated Kilograms): 78.453123 Constitutional: AAO x 3, well-developed, well-nourished Respiratory: No accessory muscle use; lungs clear to auscultation Cardiovascular: regular rate-rhythm, S1 and S2, systolic murmur (faint EULA at card base) Gastrointestional: No tender; soft; No guarding, No rebound; audible bowel sounds Extremities: No clubbing, No cyanosis, No significant edema Neurologic/Psychiatric: oriented x 3, other (resting tremor of R hand and R forearm), grossly intact, power is 5/5 both on sides Skin: No rash on exposed areas, No ulcerations on exposed areas Results/Procedures: Labs Laboratory Tests 01/06/18 05:29: Sodium Level 132L, Potassium Level 4.2, Chloride Level 101, Carbon Dioxide Level 21, Anion Gap 10, Blood Urea Nitrogen 8, Creatinine 0.85, Estimat Glomerular Filtration Rate > 60, BUN/Creatinine Ratio 9, Glucose Level 92, Calcium Level 8.5, TSH [place] Testing 1.78 Microbiology 01/03/18 Blood Culture - Preliminary, Resulted No growth 01/04/18 Urine Culture - Final, Complete NO GROWTH Laboratory Tests 01/05/18 04:15 01/06/18 05:29 A/P: Assessment: Sinus tach due to dehydration due to diuretic therapy for hypertension, improved after hydration Hyponatremia, likely due to chronic diuretic therapy, improved after hydration Echo of 01/05/18: LVEF 55-65%, mild to mod enlargement of RA and of both atria, mild MR, mod TR, PASP 50-55 mmHg Mod pulm htn (see echo results above), etiology undetermined Low TSH during this hospitalization, suggestive of hyperthyroidism, Dr Schaffer managing Hypertension Parkinsonism Chronic neck pain Plan: * Resume home bp meds * D/c tele * Outpt f/u LITTLE BERNABE MD FACP FAC CCDS Jan 06, 2018 12:30
[2018-01-06] MEDS: SENNA W/DOCUSATE (SENOKOT S) TABLET PO SCH (20:23)
[2018-01-06] MEDS: HYDROcodone/APAP 10 MG/325 MG (LORTAB) TAB PO PRN (20:27)
[2018-01-07] MEDS: GABAPENTIN 100 MG (NEURONTIN) CAP PO SCH ×3 (01:47→17:36)
[2018-01-07 03:52] VITALS: BP 148/82
[2018-01-07 08:16] VITALS: BP 150/88
[2018-01-07] MEDS ORDERED: GABA-486 PO (08:49)
[2018-01-07] MEDS ORDERED: HYDR-3820 PO (08:49)
[2018-01-07] MEDS ORDERED: CARV6.252 PO (08:49)
[2018-01-07] MEDS ORDERED: DIAZ5TAB3 PO (08:49)
[2018-01-07] MEDS ORDERED: FENT1PAT8 TD (08:49)
[2018-01-07] MEDS ORDERED: SENN-20 PO (08:49)
--- NOTE | 2018-01-07 08:52 | D/C HH Face to Face Order ---
D/C Face to Face Orders Instructions for Patient Via [employer], Patient Instructions/FollowUp: 1 wk with rajani almonte keep appt with dr. rob for 01/14/18 Physician to follow Patient: y Discharge Diet for Home: Regular Diet Patient Problems: parkinson's hypertension dizziness neck pain hx of prostate cancer Patient Data-Allergies,Ht & Wt Patient Allergies: Coded Allergies: No Known Drug Allergies (Unverified , 10/20/17) Height (Feet): 5 Height (Inches): 9.00 Weight (Pounds): 173 Weight (Ounces): 0.0 Home Health Need/Face to Face Date of Face to Face: Jan 07, 2018 Clinical Findings: Muscle weakness, Other-list in note (neck pain) generalized weakness, movement disorder with gait instability I have seen Pt [id number]: Yes Discharged To: Home (with plans to move to assisted living in the next month) Diagnosis/Conditions: parkinson's hypertension dizziness neck pain hx of prostate cancer Patient is Homebound due to: Adele fall risk due to instabilty, Muscle weakness Homebound Status Due to the above stated illness, injury or surgical procedure (medical condition or diagnosis) and associated clinical findings, the patient is homebound because of his/her inability to leave home except with aid of a supportive device and/or person AND leaving the home requires a considerable and taxing effort or is medically contraindicated. Pt req the following assistanc: Aid of another person, Cane Home Health Nursing Orders Home Health Services Order: Nursing Services, Drill Grinder-Evaluate & Treat, Physical Therapy-Evaluate & Treat Home Health Infusion Therapy Line Start Date: Jan 03, 2018 Line Start Time: 2228 Line Type: Saline Lock Site Location: Antecubital Therapy Orders Therapy Specific Orders: Teach enviro modifications/safety, Increase strength/ endurance, Restore ROM Certify Stmt I certify that this patient is under my care and that I, a nurse practitioner or a physician; a post production assistant working with me, had a face to face encounter that - meets the physician face to face encounter requirements with this patient as dated. BONNIE CARRION MD Jan 07, 2018 08:52
--- NOTE | 2018-01-07 08:54 | Discharge Summary ---
Diagnosis/Chief Complaint Date of Admission Jan 04, 2018 at 12:52 Date of Discharge Discharge Date: Jan 07, 2018 Discharge Time: 0930 Discharge Summary Discharge Physical Examination Allergies: Coded Allergies: No Known Drug Allergies (Unverified , 10/20/17) Vitals & I&Os Vital Signs Date Time Temp Pulse Resp B/P (MAP) Pulse Ox O2 Delivery O2 Flow Rate FiO2 01/07/18 08:16 97.8 59 20 150/88 (108) 98 Room Air Discharge Instructions to patient/family Please see electronic discharge instructions given to patient. Discharge Medications Reviewed and agree with Discharge Medication list on patient's Discharge Instruction sheet Clinical Quality Measures DVT/VTE Risk/Contraindication: Risk Factor Score Per Nursin RFS Level Per Nursing on Admit: 2=Moderate BONNIE CARRION MD Jan 07, 2018 08:54
[2018-01-07] MEDS: CARVEDILOL 6.25 MG (COREG) TAB PO SCH ×2 (08:57→20:54)
[2018-01-07] MEDS: SENNA W/DOCUSATE (SENOKOT S) TABLET PO SCH ×2 (08:57→20:54)
[2018-01-07] MEDS: busPIRone 15 MG (BUSPAR) TABLET PO SCH ×2 (08:57→20:54)
[2018-01-07] MEDS: rOPINIRole 0.25 MG (REQUIP) TAB PO SCH ×2 (08:58→20:55)
[2018-01-07] MEDS: fentaNYL PATCH 25 MCG (DURAGESIC) TD SCH (09:05)
[2018-01-07] MEDS ORDERED: PATCH REMOVAL TP SCH (11:30)
[2018-01-07 12:00] VITALS: BP 160/82
[2018-01-07 16:14] VITALS: BP 130/80
[2018-01-07 20:43] VITALS: BP 141/75
[2018-01-07] MEDS: ASPIRIN 81 MG CHEW (CHILDREN'S ASA) PO SCH (20:54)
[2018-01-07] MEDS: HYDROcodone/APAP 10 MG/325 MG (LORTAB) TAB PO PRN (21:03)
[2018-01-08] VITALS: BP 150/78
[2018-01-08] MEDS: GABAPENTIN 100 MG (NEURONTIN) CAP PO SCH ×2 (03:24→11:17)
[2018-01-08 04:34] VITALS: BP 152/78
[2018-01-08 08:11] VITALS: BP 187/97
[2018-01-08] MEDS: rOPINIRole 0.25 MG (REQUIP) TAB PO SCH (08:26)
[2018-01-08] MEDS: SENNA W/DOCUSATE (SENOKOT S) TABLET PO SCH (08:26)
[2018-01-08] MEDS: CARVEDILOL 6.25 MG (COREG) TAB PO SCH (08:26)
[2018-01-08] MEDS: busPIRone 15 MG (BUSPAR) TABLET PO SCH (08:26)
[2018-01-08] MEDS ORDERED: ROPI0.5T2 PO (09:27)
[2018-01-08 12:00] VITALS: BP 158/88
[2018-01-08 15:25] VITALS: BP 162/86
[2018-01-08] MEDS: HYDROcodone/APAP 10 MG/325 MG (LORTAB) TAB PO PRN (15:34)
--- OUTSIDE RECORDS SUMMARY | 2018-01-09 09:56 | XMS REPORT | Clinical Summary ---
Author Author [facility] Organization [facility] Address Unknown Phone Unavailable Care Team Providers Care Staffing Analyst Name Role Phone Joshua Romero PA-C Unavailable Nestor Gregory MD PCP Kelley Cole MD Unavailable Source Comments Some departments are not documenting in the electronic medical record. If you do not see the information that you expected, contact Release of Information in the Health Information Management department at [phone] for further assistance in locating additional records.[facility] Allergies No Known Allergies Current Medications Prescription [...]
--- OUTSIDE RECORDS SUMMARY | 2018-01-09 09:59 | XMS REPORT | CCD ---
Author Author Bernadette Chau Organization Bernadette Chau MD, [facility] Address [address] [place] [address] Phone Care Team Providers Care Welding Technician Name Role Phone PP Unavailable CCM Unavailable Summary Purpose Interface Exchange Insurance Providers Payer name Policy type / Coverage type Covered libertarian ID Effective Begin Date Effective End Date WPS Medicare Part B Medicare Part B [id number] 2017 Unknown [facility] Medicare Part B [id number] Unknown Family history Uncle Diagnosis Age At [...] Unknown Retired 09/20/[address]: 451847289 Nonsmoker smoked for 2-3 years in 20's, used smokeless tobacco for 40 yrs 09/20/[address]: 6725693 Former smoker quit 1965 09/20/2011 Alcohol history [...] Fill Instructions doxazosin 1 mg tablet RxNorm: 514464 1 Tablet(s) PO BID 201707/29/2018 Active Generic For:CARDURA 1MG 11/05/2017 9:07:09 AM gabapentin 100 mg capsule RxNorm: 658822 1 Capsule(s) PO QHS 01/30/2018 Active ibuprofen 600 mg tablet RxNorm: 182330 1 Tablet(s) PO TID 12/1101/07/2018 Inactive ibuprofen 600 mg tablet RxNorm: 961047 1 Tablet(s) PO TID 12/1112/10/2017 Inactive diazepam 5 mg tablet RxNorm: 378144 12/-1 Tablet(s) PO BID as needed muscle spasms 12/10/2017 02/07/2018 Active diazepam 5 mg tablet RxNorm: 843359 1/2 Tablet(s) PO BID as needed muscle spasms 1 x refill given per angelina 11/29/17 11/29/2017 12/09/2017 Inactive buspirone 15 mg tablet RxNorm: 985219 TAKE 1 TABLET BY MOUTH DAILY IN THE MORNING THEN TAKE 1/2 TABLET BY MOUTH IN THE AFTERNOON AT 1 OR 2PM THEN TAKE 1 TABLET BY MOUTH AT BEDTIM 11/19/2017 04/11/2018 Active Generic For:BUSPAR 15MG 2017 3:51:51 PM diazepam 5 mg tablet RxNorm: 306007 1/2 Tablet(s) PO BID as needed muscle spasms 1 x refill given per dr 11/13/17 11/13/2017 11/26/2017 Inactive ropinirole 0.5 mg tablet RxNorm: 330914 1 Tablet(s) PO BID 06/201703/04/2018 Active carvedilol 12.5 mg tablet RxNorm: 489612 TAKE 1 TABLET BY MOUTH TWICE DAILY 11/05/2017 06/02/2018 Active Generic For:COREG 12.5MG 11/05/2017 9:07:16 AM doxazosin 1 mg tablet RxNorm: 926987 TAKE 1/2 (ONE- HALF) TABLET TWICE DAILY 11/05/2017 12/31/2017 Inactive Generic For:CARDURA 1MG 11/05/2017 9:07:09 AM Dexilant 60 mg capsule, delayed release RxNorm: 484624 1 Capsule(s) PO daily 10/28/2017 10/28/2017 Inactive ibuprofen 600 mg tablet RxNorm: 540880 1 Tablet(s) PO TID 10/2411/06/2017 Inactive ibuprofen 600 mg tablet RxNorm: 271657 1 Tablet(s) PO TID 10/2410/23/2017 Inactive diazepam 5 mg tablet RxNorm: 990485 1/2 Tablet(s) PO BID as needed muscle spasms 10/24/2017 11/05/2017 Inactive Requip 0.25 mg tablet RxNorm: 144570 1 Tablet(s) PO BID 201711/04/2017 Inactive buspirone 15 mg tablet RxNorm: 757883 Tablet(s) Take 1 pill in the morning, 1/2 pill at 1 or 2pm and 1 pill at bedtime 10/21/2017 11/18/2017 Inactive prednisone 20 mg tablet RxNorm: 967074 3 Tablet(s) PO daily -Prescribed by Dr. Dann Rod on 10/20/17 10/20/20172017 Inactive Dexilant 60 mg capsule, delayed release RxNorm: 024296 1 Capsule(s) PO daily 10/18/2017 10/27/2017 Inactive tramadol 50 mg tablet RxNorm: 545280 1 Tablet(s) PO TID PRN 10/24/2017 Inactive hydrochlorothiazide 25 mg tablet RxNorm: 556719 TAKE 1 TABLET BY MOUTH IN THE MORNING 09/30/2017 04/27/2018 Active Generic For:HYDRODIURIL 25 MG TABLET 2017 11:36:14 AM Sinemet 10 mg-100 mg tablet RxNorm: 293553 1 Tablet(s) PO BID morning and early afternoon 09/10/2017 10/20/2017 Inactive potassium chloride ER 10 mEq capsule,extended release RxNorm: 572149 1 Capsule(s) PO TIW 07/22/2017 06/22/2018 Active buspirone 15 mg tablet RxNorm: 623617 Tablet(s) Take 1 pill in the morning, 1/2 pill at 1 or 2pm and 1 pill at bedtime 05/08/2017 09/28/2017 Inactive doxazosin 1 mg tablet RxNorm: 693595 TAKE 1/2 (ONE- HALF) TABLET TWICE DAILY 04/10/2017 11/04/2017 Inactive Generic For:CARDURA 1MG 04/10/2017 1:06:52 PM carvedilol 12.5 mg tablet RxNorm: 861994 Tablet(s) TAKE 1 TABLET BY MOUTH TWICE DAILY 04/10/2017 11/04/2017 Inactive hydrochlorothiazide 25 mg tablet RxNorm: 753118 TAKE 1 TABLET BY MOUTH IN THE MORNING 03/05/2017 09/29/2017 Inactive Generic For:HYDRODIURIL 25 MG TABLET 2017 10:38:53 AM buspirone 15 mg tablet RxNorm: 456524 Tablet(s) Take 1 pill in the morning, 1/2 pill at 1 or 2pm and 1 pill at bedtime 12/06/2016 04/28/2017 Inactive doxazosin 1 mg tablet RxNorm: 577656 1/2 Tablet(s) PO BID 201604/09/2017 Inactive lisinopril 40 mg tablet RxNorm: 713195 TAKE 1/2 TABLET BY MOUTH TWICE DAILY 09/18/2016 09/12/2017 Inactive Generic For:ZESTRIL 40MG 09/18/2016 9:08:05 AM carvedilol 12.5 mg tablet RxNorm: 444777 Tablet(s) TAKE 1 TABLET BY MOUTH TWICE DAILY 09/14/2016 04/09/2017 Inactive potassium chloride ER 10 mEq capsule,extended release RxNorm: 556678 1 Capsule(s) PO TIW 08/14/2016 07/15/2017 Inactive hydrochlorothiazide 25 mg tablet RxNorm: 517172 TAKE 1 TABLET BY MOUTH IN THE MORNING 08/06/2016 03/03/2017 Inactive Generic For:HYDRODIURIL 25 MG TABLET 2016 9:47:38 AM doxazosin 1 mg tablet RxNorm: 803957 1/2 Tablet(s) PO BID 201611/11/2016 Inactive fexofenadine 180 mg tablet RxNorm: 255674 1 Tablet(s) PO daily 04/05/2016 10/01/2016 Inactive fexofenadine 180 mg tablet RxNorm: 439299 1 Tablet(s) PO daily 04/05/2016 04/04/2016 Inactive buspirone 15 mg tablet RxNorm: 643073 Tablet(s) Tablet(s) take 1 pill in the morning, 1/2 pill at 1 or 2pm and 1 pill at bedtime 201609/07/2016 Inactive Generic For:BUSPAR 15MG 08/19/2014 9:29:55 AM carvedilol 12.5 mg tablet RxNorm: 081434 Tablet(s) TAKE 1 TABLET BY MOUTH TWICE DAILY 02/14/2016 09/10/2016 Inactive potassium chloride ER 10 mEq capsule,extended release RxNorm: 233054 1 Capsule(s) PO TIW 02/08/2016 08/13/2016 Inactive hydrochlorothiazide 25 mg tablet RxNorm: 998450 1 Tablet(s) PO QAM 01/09/2016 08/05/2016 Inactive carvedilol 12.5 mg tablet RxNorm: 492000 TAKE 1 TABLET BY MOUTH TWICE DAILY 10/18/2015 02/13/2016 Inactive Generic For:COREG 12.5MG 10/17/2015 1:04:24 PM lisinopril 40 mg tablet RxNorm: 010914 1/2 Tablet(s) PO BID 08/15/2016 Inactive Generic For:ZESTRIL 20MG 07/21/2014 9:29:18 AM doxazosin 1 mg tablet RxNorm: 162045 1/2 Tablet(s) PO BID 201510/31/2015 Inactive this is FYI for now - and will remain this in the future, does not need a fill right now doxazosin 1 mg tablet RxNorm: 764251 1 Tablet(s) PO BID 201506/29/2015 Inactive doxazosin 1 mg tablet RxNorm: 552027 1 Tablet(s) PO BID 201507/03/2015 Inactive potassium chloride ER 10 mEq capsule,extended release RxNorm: 797609 1 Capsule(s) PO TIW 06/14/2015 01/09/2016 Inactive hydrochlorothiazide 25 mg tablet RxNorm: 913781 1 Tablet(s) PO QAM 06/14/2015 01/08/2016 Inactive buspirone 15 mg tablet RxNorm: 712018 Tablet(s) take 1 pill in the morning, 1/2 pill at 1 or 2pm and 1 pill at bedtime 06/13/2015 12/09/2015 Inactive Generic For: BUSPAR 15MG 08/19/2014 9:29:55 AM carvedilol 12.5 mg tablet RxNorm: 077237 TAKE 1 TABLET BY MOUTH TWICE DAILY 05/20/2015 09/16/2015 Inactive Generic For:COREG 12.5MG 05/20/2015 9:04:34 AM carvedilol 12.5 mg tablet RxNorm: 904256 Tablet(s) 1 Tablet(s) PO BID 05/20/2015 05/19/2015 Inactive carvedilol 12.5 mg tablet RxNorm: 706751 1 Tablet(s) PO BID 05/19/2015 Inactive spironolactone 50 mg tablet RxNorm: 695860 1 Tablet(s) PO QAM 12/13/2014 06/13/2015 Inactive carvedilol 12.5 mg tablet RxNorm: 692783 1 Tablet(s) PO BID 01/11/2015 Inactive spironolactone 25 mg tablet RxNorm: 519659 1 Tablet(s) PO QAM 09/13/2014 12/12/2014 Inactive spironolactone 25 mg tablet RxNorm: 104333 1 Tablet(s) PO QAM 09/13/2014 09/12/2014 Inactive buspirone 15 mg tablet RxNorm: 492789 Tablet(s) take 1 pill in the morning, 1/2 pill at 1 or 2pm and 1 pill at bedtime 09/09/2014 03/07/2015 Inactive Generic For: BUSPAR 15MG 08/19/2014 9:29:55 AM lisinopril 40 mg tablet RxNorm: 433991 1/2 Tablet(s) PO BID 08/19/2015 Inactive Generic For:ZESTRIL 20MG 07/21/2014 9:29:18 AM Coreg 6.25 mg tablet RxNorm: 556120 1 Tablet(s) PO BID 201409/13/2014 Inactive buspirone 15 mg tablet RxNorm: 302928 TAKE 1 TABLET BY MOUTH TWICE DAILY 08/19/2014 09/08/2014 Inactive Generic For:BUSPAR 15MG 08/19/2014 9:29:55 AM lisinopril 20 mg tablet RxNorm: 098703 1 Tablet(s) PO daily TAKE 1 TABLET BY MOUTH ONCE DAILY. 07/21/2014 07/20/2014 Inactive Generic For:*ZESTRIL 20MG Generic For:*ZESTRIL 20MG 07/29/2013 11:19:45 AM lisinopril 20 mg tablet RxNorm: 146603 TAKE 1 TABLET BY MOUTH ONCE DAILY. 07/21/2014 08/24/2014 Inactive Generic For:ZESTRIL 20MG 07/21/2014 9:29:18 AM buspirone 15 mg tablet RxNorm: 713796 1 Tablet(s) BID 1 Tablet(s) PO BID 06/21/2014 08/18/2014 Inactive Tamiflu 75 mg capsule RxNorm: 388015 1 Capsule(s) PO daily 03/1203/11/2014 Inactive Tamiflu 75 mg capsule RxNorm: 624546 1 Capsule(s) PO daily 03/1203/21/2014 Inactive buspirone 15 mg tablet RxNorm: 291211 1 Tablet(s) BID 1 Tablet(s) PO BID 02/16/2014 06/20/2014 Inactive buspirone 15 mg tablet RxNorm: 580288 1 Tablet(s) PO BID 201302/15/2014 Inactive lisinopril 20 mg tablet RxNorm: 709309 Tablet(s) PO TAKE 1 TABLET BY MOUTH ONCE DAILY. 07/30/2013 07/20/2014 Inactive Generic For:*ZESTRIL 20MG Generic For:* ZESTRIL 20MG 07/29/2013 11:19:45 AM buspirone 15 mg tablet RxNorm: 659045 1 Tablet(s) PO BID 201310/18/2013 Inactive Zithromax 250 mg tablet RxNorm: 885152 Tablet(s) PO 03/18/2013 06/13/2015 Inactive as directed buspirone 15 mg tablet RxNorm: 772831 Tablet(s) PO TAKE 1 TABLET AT BEDTIME AND TAKE 1/2 A TABLET TWICE A DAY 12/22/2012 05/24/2013 Inactive buspirone 15 mg tablet RxNorm: 104311 1 at hs 1/2 bid Tablet(s) PO daily 11/27/2012 10/20/2017 Inactive buspirone 15 mg tablet RxNorm: 796431 Tablet(s) PO daily 201211/26/2012 Inactive 1 q hs and 1/2 daily buspirone 15 mg tablet RxNorm: 743175 Tablet(s) PO daily 2012 No Stop Date Active 1 q hs and 1/2 daily buspirone 15 mg tablet RxNorm: 879918 Tablet(s) PO daily 201210/26/2012 Inactive 1 q hs and 1/2 daily lisinopril 20 mg tablet RxNorm: 386934 Tablet(s) PO TAKE 1 TABLET BY MOUTH ONCE DAILY. 08/05/2012 07/29/2013 Inactive lisinopril 20 mg tablet RxNorm: 425265 Tablet(s) PO TAKE 1 TABLET BY MOUTH ONCE DAILY. 07/07/2012 08/04/2012 Inactive lisinopril 20 mg tablet RxNorm: 778022 Tablet(s) PO 01/07/2012 07/06/2012 Inactive TAKE 1 TABLET BY MOUTH ONCE DAILY. lisinopril 20 mg tablet RxNorm: 856088 Tablet(s) PO 12/10/2011 01/06/2012 Inactive TAKE 1 TABLET BY MOUTH ONCE DAILY. lisinopril 20 mg tablet RxNorm: 724060 1 Tablet(s) PO daily 01/201212/09/2011 Inactive can have #90 if prefers lisinopril 20 mg tablet RxNorm: 313329 1 Tablet(s) PO daily 01/201211/12/2011 Inactive can have #90 if prefers buspirone 15 mg tablet RxNorm: 611203 Tablet(s) PO daily 201110/26/2012 Inactive 1 q hs and 1/2 daily Calcium 600 + D(3) oral RxNorm: 143221 oral No Start Date Active Percocet 5 mg-325 mg tablet RxNorm: 8197956 1 Tablet(s) PO Q6 as needed breakthrough pain- Prescribed by Dr. Lebron on 10/20/17 No Start Date Active Fish Oil Concentrate Oral RxNorm: Oral No Start Date Active Centrum Silver Oral RxNorm: Oral No Start Date Active Zithromax 250 mg tablet RxNorm: 046583 Tablet(s) PO No Start Date 03/17/2013 Inactive as directed lisinopril 20 mg tablet RxNorm: 004409 1 Tablet(s) PO daily No Start Date 11/16/2014 Inactive buspirone 15 mg tablet RxNorm: 246770 1 Tablet(s) PO daily No Start Date 09/24/2011 Inactive diazepam 5 mg tablet RxNorm: 185361 1 Tablet(s) PO Q6 as needed muscle spasms - Prescribed by Dr. Dann Rod on 10/20/17 No Start Date 10/23/2017 Inactive B Complex 1 Oral RxNorm: Oral No Start Date 06/13/2015 Inactive lisinopril 20 mg tablet RxNorm: 501494 1 Tablet(s) PO daily No Start Date [...] 88.8 fl 03/08/2016 Cbc With Differential Ord2 [place]% 10.8 % 03/08/2016 Cbc With Differential Ord2 [...] 1.66 K/ul 03/08/2016 Cbc With Differential Ord2 [place] ABS# 0.5 K/ul 03/08/2016 Cbc With Differential Ord2 Eos ABS# 0.1 K/ul 03/08/2016 Cbc With Differential Ord2 Baso ABS# 0.1 K/ul 03/08/2016 Comp Metabolic Uqt090 NA 137 mEq/L 03/08/2016 Comp Metabolic Wwr058 K 3.8 mEq/L 03/08/2016 Comp Metabolic Gzi999 CL 100 mEq/L 03/08/2016 Comp Metabolic Esi200 CO2 32.0 mEq/L 03/08/2016 Comp Metabolic Ycw816 ANION GAP 9 03/08/2016 Comp Metabolic Hjp544 GLUCOSE 88 mg/dL 03/08/2016 Comp Metabolic Tsk861 Creat 1.1 mg/dL 03/08/2016 Comp Metabolic Ewr296 eGFR 67 ml/min/1.73m2 03/08/2016 Comp Metabolic Kff447 BUN 17 mg/dL 03/08/2016 Comp Metabolic Exd844 B/C Ratio 15.0 Ratio 03/08/2016 Comp Metabolic Tet548 CALCIUM 9.2 mg/dL 03/08/2016 Comp Metabolic Lmy841 ALK PHOS 43 U/L 03/08/2016 Comp Metabolic Rgh760 AST(SGOT) 19 U/L 03/08/2016 Comp Metabolic Oqv564 ALT(SGPT) 17 U/L 03/08/2016 Comp Metabolic Bxn800 BILI T 1.1 mg/dL 03/08/2016 Comp Metabolic Tpy141 ALBUMIN 4.2 g/dL 03/08/2016 Comp Metabolic Zym302 TPRO 7.1 g/dL 03/08/2016 Comp Metabolic Zzy283 GLOB 2.9 g/dL 03/08/2016 Comp Metabolic Xns384 A/G Ratio 1.5 Ratio 03/08/2016 Comp Metabolic Rsv456 Osmo 275 mOsmo 03/08/2016 Tsh Ord6 hTSH II 2.21 uIU/mL 03/08/2016 Comp Metabolic Uvt028 NA 139 mEq/L 06/15/2015 Comp Metabolic Oad455 K 4.0 mEq/L 06/15/2015 Comp Metabolic Iat929 CL 103 mEq/L 06/15/2015 Comp Metabolic Bom380 CO2 28.0 mEq/L 06/15/2015 Comp Metabolic Brc764 ANION GAP 12 06/15/2015 Comp Metabolic Nio215 GLUCOSE 79 mg/dL 06/15/2015 Comp Metabolic Grb844 Creat 1.0 mg/dL 06/15/2015 Comp Metabolic Jzh500 eGFR 74 ml/min/1.73m2 06/15/2015 Comp Metabolic Cvn021 BUN 15 mg/dL 06/15/2015 Comp Metabolic Ozl384 B/C Ratio 14.4 Ratio 06/15/2015 Comp Metabolic Cdv999 CALCIUM 9.1 mg/dL 06/15/2015 Comp Metabolic Fpj593 ALK PHOS 30 U/L 06/15/2015 Comp Metabolic Psu393 AST(SGOT) 20 U/L 06/15/2015 Comp Metabolic Yld422 ALT(SGPT) 15 U/L 06/15/2015 Comp Metabolic Vps739 BILI T 1.0 mg/dL 06/15/2015 Comp Metabolic Bjp586 ALBUMIN 4.0 g/dL 06/15/2015 Comp Metabolic Aon661 TPRO 6.7 g/dL 06/15/2015 Comp Metabolic Xot943 GLOB 2.7 g/dL 06/15/2015 Comp Metabolic Gmq704 A/G Ratio 1.5 Ratio 06/15/2015 Comp Metabolic Hby608 Osmo 277 mOsmo 06/15/2015 Lipid Ord30 CHOL [...] 33.8 % 06/15/2015 Cbc With Differential Ord2 [place]% 14.5 % 06/15/2015 Cbc With Differential Ord2 [...] 1.33 K/ul 06/15/2015 Cbc With Differential Ord2 [place] ABS# 0.6 K/ul 06/15/2015 Cbc With Differential Ord2 Eos ABS# 0.2 K/ul 06/15/2015 Cbc With Differential Ord2 Baso ABS# 0.0 K/ul 06/15/2015 Cbc With Differential Ord2 New Analyzer Notice Please note new ref ranges starting 03-16-2015 due to implemntation of new five part differential hematolgy analyzer. 06/15/2015 Tsh Ord6 hTSH II 2.01 uIU/mL 06/15/2015 VIT D TOTL 9531059 VIT D TOTL 57 NG/ML 12/14/2013 CHEM 14 5862088 AST 18 U/L 12/14/2013 CHEM 14 5492864 ALT 14 IU/L 12/14/2013 CHEM 14 8796396 BUN 19 MG/DL 12/14/2013 CHEM 14 8439609 ALBUMIN 4.2 GM/DL 12/14/2013 CHEM 14 8784317 CHLORIDE 106 MMOL/L 12/14/2013 CHEM 14 1708427 BILI TOT 0.9 MG/DL 12/14/2013 CHEM 14 2771441 ALK PHOS 30 U/L 12/14/2013 CHEM 14 0294668 SODIUM 140 MMOL/L 12/14/2013 CHEM 14 4895757 CREATININE 1.10 MG/DL 12/14/2013 CHEM 14 8476492 CALCIUM 9.4 MG/DL 12/14/2013 CHEM 14 1706850 POTASSIUM 4.1 MMOL/L 12/14/2013 CHEM 14 8407236 PROT TOT 6.9 GM/DL 12/14/2013 CHEM 14 4585769 GLUCOSE 91 MG/DL 12/14/2013 CHEM 14 6878101 BICARB 30 MMOL/L 12/14/2013 CHEM 14 1314440 ANION GAP 4 MEQ/L 12/14/2013 LIPID GRP HDL TEST 56 MG/DL 12/14/2013 LIPID GRP TRIG 56 MG/DL 12/14/2013 LIPID GRP TEST LDL 138 MG/DL 12/14/2013 LIPID GRP CHOL 205 MG/DL 12/14/2013 LIPID GRP RCHOL/HDL 3.66 RATIO 12/14/2013 LIPID GRP NON-HDL CH 149 MG/DL 12/14/2013 CBC 9675018 WBC 4.1 10e9/L 12/14/2013 CBC 6459901 RBC 4.90 10e12/L 12/14/2013 CBC 4299455 HGB 14.6 g/dL 12/14/2013 CBC 6656338 HCT DET 42.2 % 12/14/2013 CBC 2941886 MCV 86.1 fL 12/14/2013 CBC 5457263 MCH 29.8 pg 12/14/2013 CBC 8866178 MCHC 34.6 g/dL 12/14/2013 CBC 3285458 PLT 166 10e9/L 12/14/2013 CBC 4708523 MPV 9.0 fL 12/14/2013 CBC 2508056 LAUREL % 52.6 % 12/14/2013 CBC 7415535 LY % 31.6 % 12/14/2013 CBC 7150966 MON % 11.9 % 12/14/2013 CBC 1781614 EOS % 3.2 % 12/14/2013 CBC 0297066 BASO % 0.7 % 12/14/2013 CBC 0476774 RDW 13.6 % 12/14/2013 CBC 1156378 ABS LAUREL 2.16 10e9/L 12/14/2013 CBC 1778237 ABS LYMPH 1.30 10e9/L 12/14/2013 CBC 0524669 ABS MONO 0.49 10e9/L 12/14/2013 CBC 3358831 ABS EOS 0.13 10e9/L 12/14/2013 CBC 0565462 ABS BASO 0.03 10e9/L 12/14/2013 CBC 9583517 RDW-SD 41.7 fL 12/14/2013 GFR CALC 4504778 GFR AA >60 ML/MIN 12/14/2013 GFR CALC 7420669 GFR NON-AA >60 ML/MIN 12/14/2013 TSH 5546605 TSH 2.444 uIU/ML 12/14/2013 CHEM 14 9494535 AST 20 U/L 12/22/2012 CHEM 14 1788114 ALT 18 IU/L 12/22/2012 CHEM 14 8037215 BUN 20 MG/DL 12/22/2012 CHEM 14 8112659 ALBUMIN 4.1 GM/DL 12/22/2012 CHEM 14 1648219 CHLORIDE 105 MMOL/L 12/22/2012 CHEM 14 4277502 BILI TOT 1.1 MG/DL 12/22/2012 CHEM 14 1070677 ALK PHOS 31 U/L 12/22/2012 CHEM 14 3192947 SODIUM 138 MMOL/L 12/22/2012 CHEM 14 5702917 CREATININE 1.07 MG/DL 12/22/2012 CHEM 14 4096517 CALCIUM 9.3 MG/DL 12/22/2012 CHEM 14 9837055 POTASSIUM 4.2 MMOL/L 12/22/2012 CHEM 14 8553855 PROT TOT 6.9 GM/DL 12/22/2012 CHEM 14 0305178 GLUCOSE 86 MG/DL 12/22/2012 CHEM 14 2307159 BICARB 30 MMOL/L 12/22/2012 CHEM 14 3713450 ANION GAP 3 MEQ/L 12/22/2012 TSH 2243593 TSH 1.886 uIU/ML 12/22/2012 GFR CALC 6868283 GFR AA >60 ML/MIN 12/22/2012 GFR CALC 9899610 GFR NON-AA >60 ML/MIN 12/22/2012 LIPID GRP 6816358 HDL TEST 48 MG/DL 12/22/2012 LIPID GRP 8202769 TRIG 60 MG/DL 12/22/2012 LIPID GRP 2609825 TEST LDL 121 MG/DL 12/22/2012 LIPID GRP CHOL 181 MG/DL 12/22/2012 LIPID GRP RCHOL/HDL 3.77 RATIO 12/22/2012 CBC 0546303 WBC 4.1 10e9/L 12/22/2012 CBC 7399262 RBC 4.67 10e12/L 12/22/2012 CBC 6208373 HGB 14.1 g/dL 12/22/2012 CBC 1106089 HCT DET 40.6 % 12/22/2012 CBC 1646628 MCV 86.9 fL 12/22/2012 CBC 6156608 MCH 30.2 pg 12/22/2012 CBC 5918842 MCHC 34.7 g/dL 12/22/2012 CBC 6969748 PLT 170 10e9/L 12/22/2012 CBC 5931093 MPV 9.1 fL 12/22/2012 CBC 0450447 LAUREL % 49.2 % 12/22/2012 CBC 5162959 LY % 34.8 % 12/22/2012 CBC 6951094 MON % 12.1 % 12/22/2012 CBC 2332542 EOS % 3.4 % 12/22/2012 CBC 8595020 BASO % 0.5 % 12/22/2012 CBC 5317397 RDW 13.8 % 12/22/2012 CBC 7863471 ABS LAUREL 2.02 10e9/L 12/22/2012 CBC 5272783 ABS LYMPH 1.43 10e9/L 12/22/2012 CBC 8960376 ABS MONO 0.50 10e9/L 12/22/2012 CBC 3312800 ABS EOS 0.14 10e9/L 12/22/2012 CBC 4841970 ABS BASO 0.02 10e9/L 12/22/2012 CBC 4036947 RDW-SD 43.0 fL 12/22/2012 LIPID GRP HDL TEST 52 MG/DL 09/25/2011 LIPID GRP TRIG 48 MG/DL 09/25/2011 LIPID GRP TEST LDL 128 MG/DL 09/25/2011 LIPID GRP CHOL 190 MG/DL 09/25/2011 LIPID GRP RCHOL/HDL 3.65 RATIO 09/25/2011 TSH 3503034 TSH 1.923 uIU/ML 09/25/2011 GFR CALC 7977422 GFR AA >60 ML/MIN 09/25/2011 GFR CALC 9057922 GFR NON-AA >60 ML/MIN 09/25/2011 CHEM 14 5789945 AST 16 U/L 09/25/2011 CHEM 14 8609443 ALT 12 IU/L 09/25/2011 CHEM 14 0945036 BUN 28 MG/DL 09/25/2011 CHEM 14 0971704 ALBUMIN 4.2 GM/DL 09/25/2011 CHEM 14 9668206 CHLORIDE 105 MMOL/L 09/25/2011 CHEM 14 4222958 BILI TOT 0.9 MG/DL 09/25/2011 CHEM 14 7150449 ALK PHOS 35 U/L 09/25/2011 CHEM 14 9186657 SODIUM 138 MMOL/L 09/25/2011 CHEM 14 1670983 CREATININE 1.02 MG/DL 09/25/2011 CHEM 14 6161138 CALCIUM 9.2 MG/DL 09/25/2011 CHEM 14 9242163 POTASSIUM 4.1 MMOL/L 09/25/2011 CHEM 14 8096040 PROT TOT 6.7 GM/DL 09/25/2011 CHEM 14 6726870 GLUCOSE 85 MG/DL 09/25/2011 CHEM 14 0353928 BICARB 29 MMOL/L 09/25/2011 CHEM 14 5642052 ANION GAP 4 MEQ/L 09/25/2011 CBC 5162449 WBC 4.1 10e9/L 09/25/2011 CBC 9734344 RBC 4.71 10e12/L 09/25/2011 CBC 3625783 HGB 14.0 g/dL 09/25/2011 CBC 8034648 HCT DET 40.3 % 09/25/2011 CBC 6579721 MCV 85.6 fL 09/25/2011 CBC 5044189 MCH 29.7 pg 09/25/2011 CBC 4539798 MCHC 34.7 g/dL 09/25/2011 CBC 6244273 PLT 148 10e9/L 09/25/2011 CBC 6418588 MPV 9.1 fL 09/25/2011 CBC 6804394 LAUREL % 48.6 % 09/25/2011 CBC 5274141 LY % 36.6 % 09/25/2011 CBC 7016347 MON % 11.2 % 09/25/2011 CBC 7540255 EOS % 3.4 % 09/25/2011 CBC 4692095 BASO % 0.2 % 09/25/2011 CBC 2551496 RDW 13.2 % 09/25/2011 CBC 7746261 ABS LAUREL 1.99 10e9/L 09/25/2011 CBC 7245609 ABS LYMPH 1.50 10e9/L 09/25/2011 CBC 1914058 ABS MONO 0.46 10e9/L 09/25/2011 CBC 4679224 ABS EOS 0.14 10e9/L 09/25/2011 CBC 9095334 ABS BASO 0.01 10e9/L 09/25/2011 CBC 3525231 RDW-SD 40.9 fL 09/25/2011 Review of Systems [...] 10/02/2011 dry, rough, scaly lesion to left mormonism, right mormonism, bridge of left nose x 2-removed using [...] FLU VACC PRSV FREE INC ANTIG CPT-4: 41661 11/21/2017 URINALYSIS NONAUTO W/O SCOPE CPT-4: 88762 11/18/2017 PPPS, SUBSEQ VISIT CPT -4: G0439 08/01/2017 PPPS, SUBSEQ VISIT CPT -4: G0439 01/23/2016 DESTRUCT PREMALG LESION CPT-4: 76026 10/02/2011 DESTRUCT PREMALG LES 2-14 CPT-4: 47300 10/02/2011 Vital Signs Date Vital 01/01/2018 Blood Pressure 1: 164/98 Code : 8480-6 BMI: 25.4 Code : 85683-3 Heart Rate 1 : 64 bpm Height: 5'9" SpO2: 98% Weight: 172 lbs 12/10/2017 Blood Pressure 1: 130/78 Code : 8480-6 BMI: 25.4 Code : 58479-5 Heart Rate 1 : 61 bpm Height: 5'9" SpO2: 98% Weight: 172 lbs 11/05/2017 Blood Pressure 1: 130/70 Code : 8480-6 BMI: 25.8 Code : 10154-7 Heart Rate 1 : 64 bpm Height: 5'9" SpO2: 98% Weight: 175 lbs 10/21/2017 Blood Pressure 1: 142/82 Code : 8480-6 Heart Rate 1: 59 bpm Height: 5'9" SpO2: 98% Weight: 10/18/2017 Blood Pressure 1: 146/78 Code : 8480-6 BMI: 27.2 Code : 61152-4 Heart Rate 1 : 65 bpm Height: 5'9" SpO2: 96% Weight: 184 lbs 09/10/2017 Blood Pressure 1: 122/80 Code : 8480-6 BMI: 27.2 Code : 03911-1 Heart Rate 1 : 68 bpm Height: 5'9" SpO2: 96% Weight: 184 lbs 5 oz 03/14/2017 Blood Pressure 1: 128/80 Code : 8480-6 BMI: 28.1 Code : 88860-1 Heart Rate 1 : 63 bpm Height: 5'9" SpO2: 99% Weight: 190 lbs 09/11/2016 Blood Pressure 1: 120/70 Code : 8480-6 BMI: 28.2 Code : 87282-0 Heart Rate 1 : 56 bpm Height: 5'9" SpO2: 97% Weight: 191 lbs 03/07/2016 Blood Pressure 1: 124/66 Code : 8480-6 BMI: 27.3 Code : 45669-7 Heart Rate 1 : 64 bpm Height: 5'9" SpO2: 98% Weight: 185 lbs 01/23/2016 Blood Pressure 1: 140/66 Code : 8480-6 BMI: 27.2 Code : 98966-6 Heart Rate 1 : 55 bpm Height: 5'9" SpO2: 98% Waist Measure (cm): 86 cm Weight: 184 lbs 11/09/2015 Blood Pressure 1: 132/80 Code : 8480-6 BMI: 26.9 Code : 96859-6 Heart Rate 1 : 60 bpm Height: 5'9" SpO2: 98% Weight: 182 lbs 08/09/2015 Blood Pressure 1: 122/72 Code : 8480-6 BMI: 27.0 Code : 11866-1 Heart Rate 1 : 61 bpm Height: 5'9" SpO2: 98% Weight: 182 lbs 8 oz 07/04/2015 Blood Pressure 1: 132/80 Code : 8480-6 BMI: 27.0 Code : 32888-8 Heart Rate 1 : 52 bpm Height: 5'9" SpO2: 98% Weight: 183 lbs 06/30/2015 Blood Pressure 1: 162/88 Code : 8480-6 Heart Rate 1: 58 bpm 06/14/2015 Blood Pressure 1: 170/96 Code : 8480-6 BMI: 27.3 Code : 88764-4 Heart Rate 1 : 55 bpm Height: 5'9" SpO2: 98% Weight: 185 lbs 03/14/2015 Blood Pressure 1: 152/80 Code : 8480-6 Blood Pressure 1: 136/82 Code: 8480-6 BMI: 27.5 Code: 04235-9 Heart Rate 1: 56 bpm Height: 5'9" SpO2: 98% Weight: 186 lbs 12/13/2014 Blood Pressure 1: 138/80 Code : 8480-6 BMI: 27.0 Code : 20429-3 Heart Rate 1 : 70 bpm Height: 5'9" Weight: 183 lbs 11/16/2014 Blood Pressure 1: 130/70 Code : 8480-6 Heart Rate 1: 64 bpm Height: Weight: 09/09/2014 Blood Pressure 1: 140/90 Code : 8480-6 BMI: 26.3 Code : 16208-4 Heart Rate 1 : 78 bpm Height: 5'9" Weight: 178 lbs 08/25/2014 Blood Pressure 1: 160/90 Code : 8480-6 BMI: 26.3 Code : 30720-3 Heart Rate 1 : 79 bpm Height: 5'9" SpO2: 97% Weight: 178 lbs 06/10/2014 Blood Pressure 1: 142/88 Code : 8480-6 BMI: 26.7 Code : 05784-0 Heart Rate 1 : 63 bpm Height: 5'9" SpO2: 97% Weight: 181 lbs 12/03/2013 Blood Pressure 1: 138/78 Code : 8480-6 BMI: 26.0 Code : 32982-3 Heart Rate 1 : 68 bpm Height: 5'9" SpO2: 98% Weight: 176 lbs 05/25/2013 Blood Pressure 1: 152/84 Code : 8480-6 Blood Pressure 2: 138/86 Code: 8480-6 BMI: 26.1 Code: 55449-4 Heart Rate 1: 80 bpm Height: 5'9" Weight: 177 lbs 11/24/2012 Blood Pressure 1: 124/68 Code : 8480-6 BMI: 25.4 Code : 98191-0 Heart Rate 1 : 80 bpm Height: 5'9" Weight: 172 lbs 05/26/2012 Blood Pressure 1: 120/58 Code : 8480-6 BMI: 26.1 Code : 87739-9 Heart Rate 1 : 72 bpm Height: 5'9" Respiratory Rate: 16 bpm Weight: 177 lbs 11/27/2011 Blood Pressure 1: 116/68 Code : 8480-6 BMI: 25.5 Code : 29639-0 Heart Rate 1 : 60 bpm Height: 5'9" Respiratory Rate: 16 bpm Weight: 172 lbs 8 oz 10/02/2011 Blood Pressure 1: 134/74 Code : 8480-6 Heart Rate 1: 60 bpm 09/20/2011 Blood Pressure 1: 116/60 Code : 8480-6 BMI: 25.1 Code : 70864-9 Heart Rate 1 : 80 bpm Height: [...] hypertension[ICD10: I10] [facility] CPT-4: 82975 01/01/2018 ([id number]) 72265 EST. PATIENT, LEVEL III Diagnosis: Cervicalgia[ICD10: M54.2] Diagnosis: Muscle spasm of back[ICD10: M62.830] Michelle Chau MD, [facility] CPT-4: 88517 12/10/2017 ([id number]) 22899 EST. PATIENT, LEVEL IV Diagnosis: Parkinson's disease[ICD10: G20] Diagnosis: Essential (primary) hypertension[ICD10: I10] Diagnosis: Gastro-esophageal reflux disease without esophagitis[ICD10: K21.9] Bernadette Chau MD [facility] CPT-4: 29857 11/05/2017 ([id number]) 93358 EST. PATIENT, LEVEL III Diagnosis: Muscle spasm of back[ICD10: M62.830] Diagnosis: Essential (primary) hypertension[ICD10: I10] Bernadette Chau MD [facility] CPT-4: 57716 10/21/2017 ([id number]) 10969 EST. PATIENT, LEVEL III Diagnosis: Gastro-esophageal reflux disease without esophagitis[ICD10: K21.9] Diagnosis: Cervicalgia[ICD10: M54.2] Michelle Chau MD, [facility] CPT-4: 33650 10/18/2017 ([id number]) 59576 EST. PATIENT, LEVEL IV Diagnosis: Essential (primary) hypertension[ICD10: I10] Diagnosis: Essential tremor[ICD10: G25.0] Bernadette Chau MD, [facility] CPT- 4: 95011 09/10/2017 ([id number]) 63516 EST. PATIENT, LEVEL IV Diagnosis: Essential (primary) hypertension[ICD10: I10] Diagnosis: Essential tremor[ICD10: G25.0] Bernadette Chau MD [facility] CPT- 4: 09470 03/14/2017 ([id number]) 10552 EST. PATIENT, LEVEL IV Diagnosis: Essential (primary) hypertension[ICD10: I10] Diagnosis: Essential tremor[ICD10: G25.0] Bernadette Chau MD, [facility] CPT- 4: 38466 09/11/2016 ([id number]) 20370 EST. PATIENT, LEVEL IV Diagnosis: Essential (primary) hypertension[ICD10: I10] Diagnosis: Essential tremor[ICD10: G25.0] Bernadette Chau MD, [facility] CPT- 4: 08502 03/07/2016 ([id number]) 91741 EST. PATIENT, LEVEL III Diagnosis: Essential (primary) hypertension[ICD10: I10] Diagnosis: Essential tremor[ICD10: G25.0] Bernadette Chau MD [facility] CPT- 4: 99153 11/09/2015 ([id number]) 60322 EST. PATIENT, LEVEL III Diagnosis: Essential (primary) hypertension[ICD10: I10] Bernadette Chau MD [facility] CPT-4: 11362 08/09/2015 ([id number]) 26320 EST. PATIENT, LEVEL III Diagnosis: Essential (primary) hypertension[ICD10: I10] Bernadette Chau MD [facility] CPT-4: 12474 07/04/2015 ([id number]) Miscellaneous no charge Diagnosis: Essential (primary) hypertension[ICD10: I10] Bernadette Chau MD [facility] CPT-4: 15732 06/30/2015 ([id number]) 49277 EST. PATIENT, LEVEL IV Diagnosis: Essential (primary) hypertension[ICD10: I10] Diagnosis: Male erectile disorder[ICD10: F52.21] Diagnosis: Gastro-esophageal reflux disease without esophagitis[ICD10: K21.9] Bernadette Chau MD [facility] CPT-4: 35164 06/14/2015 ([id number]) 13711 EST. PATIENT, LEVEL IV Diagnosis: Essential (primary) hypertension[ICD10: I10] Diagnosis: Low back pain[ICD10: M54.5] Diagnosis: Malignant neoplasm of prostate[ICD10: C61] Bernadette Chau MD [facility] CPT-4: 09856 03/14/2015 ([id number]) 70282 EST. PATIENT, LEVEL III Diagnosis: Essential (primary) hypertension[ICD10: I10] Bernadette Chau MD [facility] CPT-4: 36500 12/13/2014 ([id number]) 20029 EST. PATIENT, LEVEL II Diagnosis: ESSENTIAL HYPERTENSION[ICD9: 401.9] Bernadette Chau MD [facility] CPT-4: 94927 11/16/2014 ([id number]) 03187 EST. PATIENT, LEVEL III Diagnosis: ESSENTIAL HYPERTENSION[ICD9: 401.9] Diagnosis: GENERALIZED ANXIETY DISEASE[ICD9: 300.02] Bernadette Chau MD, [facility] CPT-4: 72621 09/09/2014 ([id number]) 15430 EST. PATIENT, LEVEL IV Diagnosis: ESSENTIAL HYPERTENSION[ICD9: 401.9] Diagnosis: GENERALIZED ANXIETY DISEASE[ICD9: 300.02] Bernadette Chau MD, [facility] CPT-4: 20658 08/25/2014 ([id number]) 10607 EST. PATIENT, LEVEL IV Diagnosis: ESSENTIAL HYPERTENSION[ICD9: 401.9] Diagnosis: GENERALIZED ANXIETY DISEASE[ICD9: 300.02] Diagnosis: ESOPHAGEAL REFLUX[ICD9: 530.81] Bernadette Chau MD [facility] CPT- 4: 45588 06/10/2014 ([id number]) 65509 EST. PATIENT, LEVEL IV Diagnosis: ESSENTIAL HYPERTENSION[ICD9: 401.9] Diagnosis: ESOPHAGEAL REFLUX[ICD9: 530.81] Bernadette Chau MD, [facility] CPT- 4: 11735 12/03/2013 ([id number]) 87911 EST. 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 PATIENT, LEVEL IV Diagnosis: ESSENTIAL HYPERTENSION[SNOMED: 03586336] Diagnosis: Nausea[ICD9: 787.02] Diagnosis: ESOPHAGEAL REFLUX[ICD9: 530.81] Bernadette Chau MD, [facility] CPT- 4: 38222 11/24/2012 ([id number]) 05180 EST. 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 PATIENT, LEVEL III Diagnosis: ESSENTIAL HYPERTENSION[SNOMED: 30407712] [facility] CPT-4: 00743 11/27/2011 ([id number]) OFFICE VISIT, NEW - LEVEL 3 Diagnosis: ESSENTIAL HYPERTENSION[SNOMED: 49280913] Diagnosis: Impotence[ICD9: 607.84] Diagnosis: Osteoarthritis[ICD9: 715.90] [facility] CPT- 4: 49787 09/20/2011 Plan of Care Planned Activity Notes [...] start gabapentin 01/01/2018 Appointment: Kelly Mancera [facility]el: [facility] (15 min) Moderate 01/01/2018 Patient Education: Patient Medication Summary Completed 01/01/2018 Visit Plan: Neck Pain- muscle spasms- recommend PT work with patient -they have [facility] -will contact them to start with neck exercise/stretches- refill valium for prn use and use as directed only- patient verbalized understanding of plan. 12/10/2017 Appointment: Michelle Dutton [facility] [phone] [facility] [place] [place] (15 min) Moderate 12/10/2017 Patient Education: [...] at home. 11/05/2017 Appointment: [facility] [place] (15 min) Moderate 11/05/2017 Patient Education: Patient Medication Summary Completed 11/05/2017 Appointment: [facility] [phone] [facility] (15 min) Moderate 10/22/2017 Visit [...] daily. 10/18/2017 Appointment: [phone] [facility] [place] [place] (30 min) Complex 10/18/2017 Patient Education: [...] worsen. 09/10/2017 Appointment: [phone] (15 min) Moderate 09/10/2017 Patient [...] care. 03/14/2017 Appointment: [phone] [place] (15 min) Moderate 03/14/2017 Patient Education: [...] this time 09/11/2016 Appointment: Bernadette Chau WPtel: [phone] [facility] (15 min) Moderate 09/11/2016 Patient Education: Patient [...] monitor symptoms. 03/07/2016 Appointment: [facility] [phone] [facility] (15 min) Moderate 03/07/2016 Patient [...] surrogate. 01/23/2016 Appointment: Kelly Mancera [facility]Ptel[facility] [phone] [facility] [place] [facility] - Annual Wellness Visit 01/23/2016 [...] tremor. 11/09/2015 Appointment: Bernadette Chau WPtel: [facility] (15 min) Moderate 11/09/2015 Patient Education: Patient [...] home. 08/09/2015 Appointment: Bernadette Chau WPtel: [phone] [facility] (15 min) Moderate 08/09/2015 Patient Education: Patient [...] acute concerns. 07/04/2015 Appointment: Bernadette Chau WPtel: [phone] [facility] (15 min) Moderate 07/04/2015 Patient Education: Patient [...] not improving. 06/14/2015 Appointment: Bernadette Chau WPtel: [address] [place], [place] [phone] (30 min) Complex 06/14/2015 Patient Education: Patient [...] sacrum. 03/14/2015 Appointment: Bernadette Chau WPtel: [facility]7 [facility] (15 min) Moderate 03/14/2015 Patient Education: Patient [...] pt [facility] pt to take the medication at bedtime bring blood pressure machine by the office. increase spironolactone to 50mg daily. 12/13/2014 Appointment: Bernadette Chau WPtel: [facility] (15 min) Moderate 12/13/2014 Patient Education: Patient Medication Summary Completed 12/13/2014 Patient Education: Hypertension Completed 12/13/2014 Appointment: Bernadette Chau WPtel: [facility] Follow up 12/09/2014 Visit Plan: Hypertension - [...] improving. 09/09/2014 Appointment: Bernadette Chau WPtel: [phone] [facility] (15 min) Moderate 09/09/2014 Patient Education: Patient [...] concerns. 08/25/2014 Appointment: [phone] (10 min) Simple 08/25/2014 Patient [...] on cialis. 06/10/2014 Appointment: Bernadette Chau WPtel: [facility]5 [facility] Follow up 06/10/2014 Patient Education: Patient Medication [...] home. 12/03/2013 Appointment: Bernadette Chau WPtel: [phone] [facility] Follow up 12/03/2013 Patient Education: Patient Medication [...] of cialis 05/25/2013 Appointment: Bernadette Chau WPtel: [facility] Follow up 05/25/2013 Patient Education: Patient Medication [...] not improving. 11/24/2012 Appointment: Bernadette Chau WPtel: [address] [place], [place] [phone] Follow up 11/24/2012 Patient Education: Patient Medication [...] daily. 05/26/2012 Appointment: Bernadette Chau WPtel: [facility]9 [place] [phone] Established Patient Preventative visit 05/26/2012 Patient Education: [...] at home. 11/27/2011 Appointment: Bernadette Chau WPtel: [address] [place], [place] [phone] Follow up 11/27/2011 Patient Education: Patient Medication Summary Completed 11/27/2011 Patient Education: High Blood Pressure: Essential Hypertension Completed 2011 Visit Plan: Wound Instructions - Pt was instruced to keep the wound clean, wash with antibacterial soap, use triple antibiotic ointment, call if redness, pustular drainage, or any other acute conerns. 10/02/2011 Appointment: Michelle Dutton WPtel: [facility]4 [phone] Surgical Procedure 10/02/2011 Patient Education: Patient Medication [...] pain symptoms. 09/20/2011 Appointment: [facility]au [facility]Ptel[phone] [facility] [place] New Patient 09/20/2011 Patient Education: Patient Medication Summary Completed 09/20/2011 Patient Education: High Blood Pressure: Essential Hypertension Completed 2011 Instructions Comment . Parkinson's Disease - pt has diagnosis [...] controlled. Pt to call if not improving. doxazosin full pill twice a day then [...] with Dr. Moy - will start gabapentin . Hypertension - well controlled - continue [...] pt is to call for acute concerns. continue with lisinopril 20mg twice daily (split [...] blood pressure readings at home. PT with [facility] refill diazepam . Neck Pain- muscle spasms- recommend PT work with patient -they have [facility] -will contact them to start with neck [...] office if the symptoms are not improving. increase the requip (ropinirole) from 0.25mg twice [...] blood pressure readings at home. Declined Procedure: (09063) FLU VACC 4 WILVER 3 YRS PLUS [...] at home. . Hypertension - well controlled at home [...] medications. Impotence - samples of cialis . Medicare Exam - today we discussed [...] for health care surrogate. . Hypertension - well controlled - continue [...]
--- OUTSIDE RECORDS SUMMARY | 2018-01-09 10:22 | XMS REPORT | Continuity of Care Document ---
Author Author [facility] Organization [facility] Address Unknown Phone Unavailable Allergies Active Description Code Type Severity Reaction Onset Reported/Identified Relationship to Patient Clinical Status Yes No Known Drug Allergies [id number] Drug Allergy Unknown N/A 10/20/2017 Medications There is no data. Problems Date Dx Coded Attending Type Code Diagnosis Diagnosed By 04/05/2015 MURALI WHITE, BONNIE Medina Ot C61 04/05/2015 MURALI WHITE, BONNIE Medina Ot M54.5 04/14/2015 BONNIE CARRION [...] lactic acid measurement (moles/volume) 0.76 mmol/L 0.50-2.00 Bacterial blood culture - 01/03/18 23:10 Bacterial blood culture NG NRG Bacterial blood culture - 01/03/18 23:40 Bacterial blood culture NG NRG Complete urinalysis with reflex to culture - 01/04/18 00:17 Urine color determination YELLOW NRG Urine clarity determination CLEAR NRG Urine pH measurement by test strip 7 5-9 Specific gravity of urine by test strip 1.010 1.016- 1.022 Urine protein assay by test strip, semi-quantitative NEGATIVE NEGATIVE Urine glucose detection by automated test strip NEGATIVE NEGATIVE Erythrocytes detection in urine sediment by light microscopy NEGATIVE NEGATIVE Urine ketones detection by automated test strip NEGATIVE NEGATIVE Urine nitrite detection by test strip NEGATIVE NEGATIVE Urine total bilirubin detection by test strip NEGATIVE NEGATIVE Urine urobilinogen measurement by automated test strip (mass/volume) NORMAL NORMAL Urine leukocyte esterase detection by dipstick NEGATIVE NEGATIVE Automated urine sediment erythrocyte count by microscopy (number/high power field) NONE NRG Automated urine sediment leukocyte count by microscopy (number/high power field ) NONE NRG Bacteria detection in urine sediment by light microscopy NEGATIVE NRG Squamous epithelial cells detection in urine sediment by light microscopy RARE NRG Crystals detection in urine sediment by light microscopy NONE NRG Casts detection in urine sediment by light microscopy NONE NRG Mucus detection in urine sediment by light microscopy NEGATIVE NRG Complete urinalysis with reflex to culture NO NRG Bacterial urine culture - 01/04/18 00:17 Bacterial urine culture NG NRG Complete blood count (CBC) with automated white blood cell (WBC) differential - 01/04/18 05:55 Blood leukocytes automated count (number/volume) 3.6 10*3/uL 4.3-11.0 Blood erythrocytes automated count (number/volume) 3.96 10*6/uL 4.35-5.85 Venous blood hemoglobin measurement (mass/volume) 12.4 g/dL 13.3-17.7 Blood hematocrit (volume fraction) 34 % 40-54 Automated erythrocyte mean corpuscular volume 85 [foz_us] 80-99 Automated erythrocyte mean corpuscular hemoglobin (mass per erythrocyte) 31 pg 25-34 Automated erythrocyte mean corpuscular hemoglobin concentration measurement ( mass/volume) 37 g/dL 32-36 Automated erythrocyte distribution width ratio 13.7 % 10.0-14.5 Automated blood platelet count (count/volume) 175 10*3/uL 130-400 Automated blood platelet mean volume measurement 8.4 [foz_us] 7.4-10.4 Automated blood neutrophils/100 leukocytes 50 % 42-75 Automated blood lymphocytes/100 leukocytes 30 % 12-44 Blood monocytes/100 leukocytes 18 % 0-12 Automated blood eosinophils/100 leukocytes 1 % 0-10 Automated blood basophils/100 leukocytes 1 % 0-10 Blood neutrophils automated count (number/volume) 1.8 10*3 1.8-7.8 Blood lymphocytes automated count (number/volume) 1.1 10*3 1.0-4.0 Blood monocytes automated count (number/volume) 0.6 10*3 0.0-1.0 Automated eosinophil count 0.1 10*3/uL 0.0-0.3 Automated blood basophil count (count/volume) 0.0 10*3/uL 0.0-0.1 Whole blood basic metabolic panel - 01/04/18 05:55 Serum or plasma sodium measurement (moles/volume) 127 mmol/L 135-145 Serum or plasma potassium measurement (moles/volume) 4.1 mmol/L 3.6-5.0 Serum or plasma chloride measurement (moles/volume) 98 mmol/L 98-107 Carbon dioxide 20 mmol/L 21-32 Serum or plasma anion gap determination (moles/volume) 9 mmol/L 5-14 Serum or plasma urea nitrogen measurement (mass/volume) 8 mg/dL 7-18 Serum or plasma creatinine measurement (mass/volume) 0.86 mg/dL 0.60-1.30 Serum or plasma urea nitrogen/creatinine mass ratio 9 NRG Serum or plasma creatinine measurement with calculation of estimated glomerular filtration rate > NRG Serum or plasma glucose measurement (mass/volume) 92 mg/dL 70-105 Serum or plasma calcium measurement (mass/volume) 8.5 mg/dL 8.5-10.1 Complete blood count (CBC) with automated white blood cell (WBC) differential - 01/05/18 04:15 Blood leukocytes automated count (number/volume) 7.8 10*3/uL 4.3-11.0 Blood erythrocytes automated count (number/volume) 4.02 10*6/uL 4.35-5.85 Venous blood hemoglobin measurement (mass/volume) 12.4 g/dL 13.3-17.7 Blood hematocrit (volume fraction) 36 % 40-54 Automated erythrocyte mean corpuscular volume 89 [foz_us] 80-99 Automated erythrocyte mean corpuscular hemoglobin (mass per erythrocyte) 31 pg 25-34 Automated erythrocyte mean corpuscular hemoglobin concentration measurement ( mass/volume) 35 g/dL 32-36 Automated erythrocyte distribution width ratio 13.9 % 10.0-14.5 Automated blood platelet count (count/volume) 162 10*3/uL 130-400 Automated blood platelet mean volume measurement 8.8 [foz_us] 7.4-10.4 Automated blood neutrophils/100 leukocytes 69 % 42-75 Automated blood lymphocytes/100 leukocytes 16 % 12-44 Blood monocytes/100 leukocytes 14 % 0-12 Automated blood eosinophils/100 leukocytes 0 % 0-10 Automated blood basophils/100 leukocytes 0 % 0-10 Blood neutrophils automated count (number/volume) 5.4 10*3 1.8-7.8 Blood lymphocytes automated count (number/volume) 1.3 10*3 1.0-4.0 Blood monocytes automated count (number/volume) 1.1 10*3 0.0-1.0 Automated eosinophil count 0.0 10*3/uL 0.0-0.3 Automated blood basophil count (count/volume) 0.0 10*3/uL 0.0-0.1 Comprehensive metabolic panel - 01/05/18 04:15 Serum or plasma sodium measurement (moles/volume) 130 mmol/L 135-145 Serum or plasma potassium measurement (moles/volume) 4.4 mmol/L 3.6-5.0 Serum or plasma chloride measurement (moles/volume) 102 mmol/L 98-107 Carbon dioxide 17 mmol/L 21-32 Serum or plasma anion gap determination (moles/volume) 11 mmol/L 5-14 Serum or plasma urea nitrogen measurement (mass/volume) 7 mg/dL 7-18 Serum or plasma creatinine measurement (mass/volume) 0.81 mg/dL 0.60-1.30 Serum or plasma urea nitrogen/creatinine mass ratio 9 NRG Serum or plasma creatinine measurement with calculation of estimated glomerular filtration rate > NRG Serum or plasma glucose measurement (mass/volume) 98 mg/dL 70-105 Serum or plasma calcium measurement (mass/volume) 8.7 mg/dL 8.5-10.1 Serum or plasma total bilirubin measurement (mass/volume) 0.6 mg/dL 0.1-1.0 Serum or plasma alkaline phosphatase measurement (enzymatic activity/volume) 25 U/L 40-136 Serum or plasma aspartate aminotransferase measurement (enzymatic activity/ volume) 23 U/L 5-34 Serum or plasma alanine aminotransferase measurement (enzymatic activity/volume ) 21 U/L 0-55 Serum or plasma protein measurement (mass/volume) 6.1 g/dL 6.4-8.2 Serum or plasma albumin measurement (mass/volume) 3.7 g/dL 3.2-4.5 CALCIUM CORRECTED 8.9 mg/dL 8.5-10.1 Magnesium - 01/05/18 04:15 Magnesium 2.1 mg/dL 1.8-2.4 THYROID STIMULATING HORMONE - 01/05/18 04:15 THYROID STIMULATING HORMONE 0.05 u[iU]/mL 0.35-4.94 Whole blood basic metabolic panel - 01/06/18 05:29 Serum or plasma sodium measurement (moles/volume) 132 mmol/L 135-145 Serum or plasma potassium measurement (moles/volume) 4.2 mmol/L 3.6-5.0 Serum or plasma chloride measurement (moles/volume) 101 mmol/L 98-107 Carbon dioxide 21 mmol/L 21-32 Serum or plasma anion gap determination (moles/volume) 10 mmol/L 5-14 Serum or plasma urea nitrogen measurement (mass/volume) 8 mg/dL 7-18 Serum or plasma creatinine measurement (mass/volume) 0.85 mg/dL 0.60-1.30 Serum or plasma urea nitrogen/creatinine mass ratio 9 NRG Serum or plasma creatinine measurement with calculation of estimated glomerular filtration rate > NRG Serum or plasma glucose measurement (mass/volume) 92 mg/dL 70-105 Serum or plasma calcium measurement (mass/volume) 8.5 mg/dL 8.5-10.1 Serum or plasma thyrotropin measurement by detection limit <=0.05 miu/l (units/ volume) - 01/06/18 05:29 Serum or plasma thyrotropin measurement by detection limit <=0.05 miu/l (units/ volume) 1.78 u[iU]/mL 0.35-4.94 [id number] - 01/06/18 05:29 Thyroglobulin [mass/volume] in serum or plasma 0.04 % 0.00-0.50 Serum or plasma thyroperoxidase antibody assay (units/volume) 25.80 % 0.00-100.00 Encounters ACCT No. Visit Date/Time Discharge Status Pt. Type Provider Facility Loc./Unit Complaint [id number] 10/20/2017 02:37:00 10/20/2017 05:28:00 DIS Emergency LYLA WHITE, DEVI Benson [facility] ER NECK HEAD PAIN [id number] 03/14/2015 15:32:00 03/14/2015 23:59:59 CLS Outpatient MURALI WHITE, BONNIE Medina [facility] RAD [id number] 01/04/2018 12:52:00 ACT Inpatient FREDDY WHITE, MAYO Davis [facility] 4TH HYPONATREMIA, SINUS TACHYCARDIA,HYPOVOLEMIA ,
== END 2018-01-08 17:03 | disposition home health service (06) | DRG 641 ==
LOC: EDUNIT# 22:21 → ER 22:23 → 4TH 22:24 → UNDOADMOB 01-04 00:05 → 4TH 01-04 00:05 → OBSVTOIN 01-04 12:32 → INTOOBSV 01-04 12:52 → 4TH 01-07 13:58 → UNDODISIN 01-08 17:03
PROVIDERS: ADMIT Internal Medicine; ATTEND Internal Medicine
DX: E86.1 Hypovolemia (principal); E86.0 Dehydration; E87.1 Hypo-osmolality and hyponatremia; R00.0 Tachycardia, unspecified; I95.2 Hypotension due to drugs; M48.02 Spinal stenosis, cervical region; M54.12 Radiculopathy, cervical region; I10 Essential (primary) hypertension; G20 Parkinson's disease; I27.20 Pulmonary hypertension, unspecified; E05.90 Thyrotoxicosis, unspecified without thyrotoxic crisis or storm; T50.2X5A Adverse effect of carbonic-anhydrase inhibitors, benzothiadiazides and other diuretics, initial encounter; T44.6X5A Adverse effect of alpha-adrenoreceptor antagonists, initial encounter; G47.10 Hypersomnia, unspecified; T42.4X5A Adverse effect of benzodiazepines, initial encounter; T40.2X5A Adverse effect of other opioids, initial encounter; R30.0 Dysuria; R39.11 Hesitancy of micturition; K59.09 Other constipation; F32.9 Major depressive disorder, single episode, unspecified; Z87.891 Personal history of nicotine dependence; Z85.46 Personal history of malignant neoplasm of prostate; Z90.79 Acquired absence of other genital organ(s)
CPT/HCPCS: 36415; 71045; 80048; 80053; 81000; 83605; 83735; 84443; 84484; 85025; 85610; 85730; 86376; 86800; 87040; 87088; 93005; 93041; 93306; 96360; G0378

== ENCOUNTER 2018-01-14 15:07 | Emergency (ER) | payer MEDICARE ==
[~2018-01-14] VITALS: Ht 170.2 cm; Wt 77.1 kg
[~2018-01-14 15:07] MED LIST changes: +ASPI81TA55 PO; +BUSP15TA60 PO; +CARV12.53 PO; +CARV6.252 PO; +DIAZ5TAB3 PO; +DOXA1TAB2 PO; +FENT1PAT8 TD; +GABA-486 PO; +HYDR-3820 PO; +HYDR25TA4 PO; +IBUP-1773 PO; +OMEG-160 PO; +POTA10TA6 PO; +ROPI0.5T2 PO; +SENN-20 PO
[2018-01-14] MEDS ORDERED: NITROGLYCERIN 0.4 MG SL TABS BTL 25'S SL PRN (15:15)
[2018-01-14] MEDS ORDERED: ASPIRIN 81 MG CHEW (CHILDREN'S ASA) PO ONE (15:15)
--- NOTE | 2018-01-14 15:20 | ED Chest Pain ---
General Stated Complaint: CP, BP IS HIGH Source: patient Exam Limitations: no limitations (BRANDON FAN APRN) History of Present Illness Date Seen by Provider: Jan 14, 2018 Time Seen by Provider: 15:18 Initial Comments To ER per private vehicle accompanied by his son with reports of "achey" right sided chest pain rated at 5/10 that started at about 1450. Patient was at Dr. Gaines's office for pain management and they were discussing that he would need injections and additional appointments to treat his neck pain. He states just after he was told this he developed some pain in the right side and center of his chest. The pain is nonradiating. No associated shortness of breath, no diaphoresis, no nausea or vomiting. History of this. He is currently residing at [facility]. No cardiac history or coronary stents. Timing/Duration: constant Severity/Quality: moderate Location: central Prior CP/Workup: no prior chest pain ASA po DIRECT ENTRY MIDWIFE: No NTG SL DIRECT ENTRY MIDWIFE: No Associated Symptoms: No nausea/vomiting, No shortness of breath (BRANDON FAN APRN) Allergies and Home Medications Allergies Coded Allergies: No Known Drug Allergies (Unverified , 10/20/17) Home Medications Aspirin 81 Mg Tablet.dr, 81 MG PO HS, (Reported) Buspirone HCl 15 Mg Tablet, 15 MG PO BID, (Reported) Carvedilol 6.25 Mg Tablet, 6.25 MG PO BID Prescribed by: BONNIE CARRION on 01/07/18 08 Diazepam 5 Mg Tablet, 5 MG PO BID, (Reported) Diazepam 5 Mg Tablet, 2.5 MG PO BID PRN for MUSCLE SPASMS Prescribed by: BONNIE CARRION on 01/07/18 08 Fentanyl 1 Each Patch.td72, 25 MCG TD Q72H Prescribed by: BONNIE CARRION on 01/07/18 0849 Gabapentin 100 Mg Capsule, 100 MG PO HS, (Reported) 01-01-[address] carrion's office: MAY INCREASE TO 3 TIMES A DAY IF HE IS TOLERATING IT WELL Gabapentin 100 Mg Capsule, 100 MG PO Q8H Prescribed by: BONNIE CARRION on 01/07/18 0849 Hydrocodone/Acetaminophen 1 Each Tablet, 1 EA PO Q4H PRN for PAIN-MODERATE Prescribed by: BONNIE CARRION on 01/07/18 08 Ibuprofen 600 Mg Tablet, 600 MG PO TID, (Reported) Vancleve-3/Dha/Epa/Fish Oil 1 Each Capsule, 1 EACH PO HS, (Reported) Ropinirole HCl 0.5 Mg Tablet, 0.5 MG PO TID Prescribed by: BONNIE CARRION on 01/08/18 0927 Sennosides/Docusate Sodium 1 Each Tablet, 1 EA PO BID Prescribed by: BONNIE CARRION on 01/07/18 0849 Patient Home Medication List Home Medication List Reviewed: Yes (BRANDON FAN APRN) Review of Systems Review of Systems Constitutional: see HPI EENTM: No Symptoms Reported Respiratory: No Symptoms Reported; Denies Cough, Denies Shortness of Air, Denies SOA With Exertion, Denies SOA at Rest Cardiovascular: See HPI, Chest Pain; Denies Edema, Denies Irregular Heart Rate , Denies Lightheadedness Gastrointestinal: See HPI; Denies Abdominal Pain Genitourinary: No Symptoms Reported Musculoskeletal: no symptoms reported Skin: no symptoms reported Psychiatric/Neurological: No Symptoms Reported Endocrine: No Symptoms Reported (BRANDON FAN APRN) Past Edgtnni-Fsjozb-Uxnshs Hx Patient Social History Type Used: Cigarettes Former Smoker, Quit: Mar 04, 1967 2nd Hand Smoke Exposure: No Recent Hopitalizations: No (BRANDON FAN APRN) Immunizations Up To Date Date of Influenza Vaccine: Dec 04, 2017 (BRANDON FAN APRN) Seasonal Allergies Seasonal Allergies: No (BRANDON FAN APRN) Past Medical History Surgeries: Yes Orthopedic, Prostatectomy Respiratory: No Cardiac: Yes Hypertension Neurological: Yes Parkinson's Disease HIV/AIDS: No Genitourinary: Yes Prostate Problems Gastrointestinal: No Musculoskeletal: No Endocrine: No HEENT: No Cancer: Yes Prostate Psychosocial: No Integumentary: No Blood Disorders: No Adverse Reaction/Blood Tranf: No (BRANDON FAN APRN) Family Medical History Patient reports no known family medical history. Physical Exam Vital Signs Vital Signs - First Documented 01/14/18 15:10 Temp 97.2 Pulse 75 Resp 18 B/P (MAP) 192/107 (135) Pulse Ox 96 (SURYA TURPIN MD) Vital Signs Capillary Refill : (BRANDON FAN APRN) Height, Weight, BMI Height: 5'9.00" Weight: 173lbs. 0.0oz. 78.318722wa; 25.6 BMI Method:Stated General Appearance: No Apparent Distress, WD/WN, Other (history of Parkinson's disease. He does have a tremor of the right arm.) HEENT: PERRL/EOMI, TMs Normal Neck: Normal Inspection Respiratory: Normal Breath Sounds, No Accessory Muscle Use, No Respiratory Distress Cardiovascular: Regular Rate, Rhythm, Normal Peripheral Pulses Gastrointestinal: Normal Bowel Sounds, Non Tender, Soft Extremity: Normal Capillary Refill, Normal Inspection Neurologic/Psychiatric: Alert, Oriented x3, No Motor/Sensory Deficits Skin: Normal Color, Warm/Dry (BRANDON FAN APRN) Neck: Tender Lateral (Reports tenderness lateral aspect and has history of spinal stenosis causing this pain) Respiratory: Lungs Clear, No Accessory Muscle Use Cardiovascular: Regular Rate, Rhythm, No Murmur Gastrointestinal: Non Tender, Soft Extremity: Normal Range of Motion, Non Tender, No Calf Tenderness Neurologic/Psychiatric: Alert, Oriented x3 (SURYA TURPIN MD) Progress/Results/Core Measures Results/Orders Lab Results Laboratory Tests Test 01/14/18 15:17 Range/Units White Blood Count 4.9 4.3-11.0 10^3/uL Red Blood Count 4.29 L 4.35-5.85 10^6/uL Hemoglobin 13.1 L 13.3-17.7 G/DL Hematocrit 39 L 40-54 % Mean Corpuscular Volume 90 80-99 FL Mean Corpuscular Hemoglobin 31 25-34 PG Mean Corpuscular Hemoglobin Concent 34 32-36 G/DL Red Cell Distribution Width 14.1 10.0-14.5 % Platelet Count 181 130-400 10^3/uL Mean Platelet Volume 8.2 7.4-10.4 FL Neutrophils (%) (Auto) 57 42-75 % Lymphocytes (%) (Auto) 23 12-44 % Monocytes (%) (Auto) 15 H 0-12 % Eosinophils (%) (Auto) 3 0-10 % Basophils (%) (Auto) 1 0-10 % Neutrophils # (Auto) 2.8 1.8-7.8 X 10^3 Lymphocytes # (Auto) 1.2 1.0-4.0 X 10^3 Monocytes # (Auto) 0.8 0.0-1.0 X 10^3 Eosinophils # (Auto) 0.2 0.0-0.3 10^3/uL Basophils # (Auto) 0.1 0.0-0.1 10^3/uL Prothrombin Time 13.7 12.2-14.7 SEC INR Comment 1.1 0.8-1.4 Activated Partial Thromboplast Time 29 24-35 SEC D-Dimer 0.66 H 0.00-0.49 UG/ML Sodium Level 140 135-145 MMOL/L Potassium Level 3.9 3.6-5.0 MMOL/L Chloride Level 102 98-107 MMOL/L Carbon Dioxide Level 28 21-32 MMOL/L Anion Gap 10 5-14 MMOL/L Blood Urea Nitrogen 17 7-18 MG/DL Creatinine 1.18 0.60-1.30 MG/DL Estimat Glomerular Filtration Rate 60 BUN/Creatinine Ratio 14 Glucose Level 92 70-105 MG/DL Calcium Level 9.6 8.5-10.1 MG/DL Corrected Calcium 9.4 8.5-10.1 MG/DL Magnesium Level 2.2 1.8-2.4 MG/DL Total Bilirubin 0.7 0.1-1.0 MG/DL Aspartate Amino Transf (AST/SGOT) 18 5-34 U/L Alanine Aminotransferase (ALT/SGPT) 13 0-55 U/L Alkaline Phosphatase 35 L 40-136 U/L Myoglobin 52.2 10.0-92.0 NG/ML Troponin I < 0.30 <0.30 NG/ML B-Type Natriuretic Peptide 315.6 H <100.0 PG/ML Total Protein 7.2 6.4-8.2 GM/DL Albumin 4.3 3.2-4.5 GM/DL (SURYA TURPIN MD) My Orders Orders - SURYA TURPIN MD Ketorolac Injection (Toradol Injection) (01/14/18 16:06) Morphine Injection (Morphine Injection (01/14/18 16:06) (SURYA TURPIN MD) Medications Given in ED Current Medications Medications Dose Ordered Sig/Heaven Route Start Time Stop Time Status Last Admin Dose Admin Aspirin 324 mg ONCE ONCE PO 01/14/18 15:15 01/14/18 15:16 DC 01/14/18 15:23 324 MG Nitroglycerin 0.4 mg UD PRN SL 01/14/18 15:15 01/14/18 15:23 0.4 MG (SURYA TURPIN MD) Vital Signs/I&O 01/14/18 15:10 Temp 97.2 Pulse 75 Resp 18 B/P (MAP) 192/107 (135) Pulse Ox 96 (SURYA TURPIN MD) Progress Progress Note : Progress Note Seen and evaluated and agree with above except as indicated. I have reviewed and agree with plan of care. Patient is here with chest pain on the right side that's 5 out of 10 and reportedly is a pressure. This started about 230-3 p.m. Denies nausea or vomiting. Takes pain medicines with her chronic pain of the neck. He was being evaluated for injections. IV, labs, EKG and chest x-ray ordered. ASA 324 mg by mouth ordered. Nitroglycerin sublingual ordered. Monitor patient. 1545: Patient did have a dose of nitroglycerin which brought blood pressure down nicely and did essentially resolve the pain. Monitor patient. 1611: No acute findings except for mild elevation in BNP. I did offer to repeat labs in a few hours to help with evaluation and safety and patient is thinking about that. He might want to go home. He was can think about. Toradol 15 mg IV and morphine 5 mg IV ordered. 1612: Patient has agreed to stay for repeat testing. Anticipate repeat troponin and myoglobin at 1800. Monitor patient. (SURYA TURPIN MD) Initial ECG Impression Date: Jan 14, 2018 Initial ECG Impression Time: 15:13 Initial ECG Rate: 66 Initial ECG Rhythm: Normal Sinus Initial ECG Comparisson: Changed Comment Sinus rhythm with left axis deviation. No evidence of ST elevation IA. Similar to previous but faster rate than 01/03/18. No evidence of ST elevation IA. Interpreted by me. (SURYA TURPIN MD) Diagnostic Imaging Diagonstic Imaging: Xray Plain Films/CT/US/NM/MRI: chest Comments VIA [facility]. [place], [place] NAME: KUSH PINON [facility] REC#: [id number] PT STATUS: REG ER : 1940 PHYSICIAN: BRANDON FAN APRN ADMIT DATE: 01/14/18/ER Draft Date of Exam:01/14/18 CHEST 1 VIEW, AP/PA ONLY Indication: Right-sided chest pain Portable chest at 3:28 PM Heart size and pulmonary vascularity are normal. The lungs are clear. There are no effusions or pneumothoraces. Impression: Negative chest. Dictated on workstation # [id number] Dict: 01/14/18 1533 Trans: 01/14/18 1536 [facility] [id number] Interpreted by: SURYA BERRY MD Electronically signed by: (SURYA TURPIN MD) Departure Impression Primary Impression: Chest pain Qualified Codes: R07.89 - Other chest pain Disposition: 01 HOME, SELF-CARE Condition: Stable Departure-Patient Inst. Decision time for Depature: 18:55 (BRANDON FAN APRN) Referrals: BONNIE CARRION MD (PCP/Family) Primary Care Physician Patient Instructions: Chest Pain (DC) Add. Discharge Instructions: 1. Call your family physician tomorrow to make an appointment to be seen for follow-up 2. Return to ER for any concerns 3. BRANDON FAN APRN Jan 14, 2018 15:20 SURYA TURPIN MD Jan 14, 2018 16:14
[2018-01-14 15:24] LABS: BASOPHILS # (AUTO) 0.1 10^3/uL (0.0-0.1); BASOPHILS % (AUTO) 1 % (0-10); EOSINOPHILS # (AUTO) 0.2 10^3/uL (0.0-0.3); EOSINOPHILS % (AUTO) 3 % (0-10); HEMATOCRIT 39 % (40-54); HEMOGLOBIN 13.1 G/DL (13.3-17.7); LYMPHOCYTES # (AUTO) 1.2 X 10^3 (1.0-4.0); LYMPHOCYTES % (AUTO) 23 % (12-44); MEAN CORPUSCULAR HEMOGLOBIN 31 PG (25-34); MEAN CORPUSCULAR HGB CONC 34 G/DL (32-36); MEAN CORPUSCULAR VOLUME 90 FL (80-99); MEAN PLATELET VOLUME 8.2 FL (7.4-10.4); MONOCYTES # (AUTO) 0.8 X 10^3 (0.0-1.0); MONOCYTES % (AUTO) 15 % (0-12); NEUTROPHILS # (AUTO) 2.8 X 10^3 (1.8-7.8); NEUTROPHILS % (AUTO) 57 % (42-75); PLATELET COUNT 181 10^3/uL (130-400); RED BLOOD COUNT 4.29 10^6/uL (4.35-5.85); RED CELL DISTRIBUTION WIDTH 14.1 % (10.0-14.5); WHITE BLOOD COUNT 4.9 10^3/uL (4.3-11.0)
--- NOTE | 2018-01-14 15:36 | Diagnostic Imaging Report ---
Indication: Right-sided chest pain Portable chest at 3:28 PM Heart size and pulmonary vascularity are normal. The lungs are clear. There are no effusions or pneumothoraces. Impression: Negative chest. Dictated by: Dictated on workstation # [id number]
[2018-01-14 15:42] LABS: INR 1.1 (0.8-1.4); PROTHROMBIN TIME PATIENT 13.7 SEC (12.2-14.7)
[2018-01-14 15:45] LABS: ALANINE AMINOTRANSFERASE 13 U/L (0-55); ALBUMIN 4.3 GM/DL (3.2-4.5); ALKALINE PHOSPHATASE 35 U/L (40-136); BILIRUBIN,TOTAL 0.7 MG/DL (0.1-1.0); BUN/CREATININE RATIO 14; CALCIUM 9.6 MG/DL (8.5-10.1); CARBON DIOXIDE 28 MMOL/L (21-32); CHLORIDE 102 MMOL/L (98-107); CREATININE SERUM 1.18 MG/DL (0.60-1.30); GFR ESTIMATED 60; GLUCOSE 92 MG/DL (70-105); MAGNESIUM 2.2 MG/DL (1.8-2.4); POTASSIUM 3.9 MMOL/L (3.6-5.0); SODIUM 140 MMOL/L (135-145); TOTAL PROTEIN 7.2 GM/DL (6.4-8.2)
[2018-01-14 15:51] LABS: MYOGLOBIN SERUM 52.2 NG/ML (10.0-92.0)
--- OUTSIDE RECORDS SUMMARY | 2018-01-14 16:05 | XMS REPORT | Clinical Summary ---
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 If you do not see the information that you expected, contact Release of Information in the Health Information Management department at [phone] for further assistance in locating additional records.[facility] Allergies No Known Allergies Current Medications Prescription [...]
[2018-01-14] MEDS ORDERED: KETOROLAC 30 MG/ML VIAL IVP STA (16:06)
[2018-01-14] MEDS ORDERED: morphine INJ 10 MG/ML 1ML (SYR OR VIAL) IVP STA (16:06)
--- OUTSIDE RECORDS SUMMARY | 2018-01-14 16:09 | XMS REPORT | CCD ---
Author Author Bernadette Chau Organization Bernadette Chau MD, [facility] Address [address] [place] [address] Phone Care Team Providers Care Strapper And Buffer Name Role Phone PP Unavailable CCM Unavailable Summary Purpose Interface Exchange Insurance Providers Payer name Policy type / Coverage type Covered democrat ID Effective Begin Date Effective End Date WPS Medicare Part B Medicare Part B [id number] 2017 Unknown [facility] Medicare Part B [id number] Unknown Family history Uncle Diagnosis Age At [...] Unknown Retired 09/20/[address]: 390671870 Nonsmoker smoked for 2-3 years in 20's, used smokeless tobacco for 40 yrs 09/20/[address]: 3775659 Former smoker quit 1965 09/20/2011 Alcohol history [...] Start Date Stop Date Status Fill Instructions gabapentin 100 mg capsule RxNorm: 564383 1 Capsule(s) PO TID 02/07/2018 Active carvedilol 6.25 mg tablet RxNorm: 499868 Tablet(s) PO TAKE 1 TABLET BY MOUTH TWICE DAILY 01/09/2018 08/06/2018 Active Generic For:COREG 12.5MG 11/05/2017 9:07: 16 AM diazepam 5 mg tablet RxNorm: 006084 1 Tablet(s) PO BID 201703/09/2018 Active buspirone 15 mg tablet RxNorm: 382149 1 Tablet(s) BID 201704/30/2018 Active Generic For:BUSPAR 15MG 11/18/2017 3:51:51 PM doxazosin 1 mg tablet RxNorm: 524298 1 Tablet(s) PO BID 201701/08/2018 Inactive Generic For:CARDURA 1MG 11/05/2017 9:07:09 AM gabapentin 100 mg capsule RxNorm: 597104 1 Capsule(s) PO QHS 01/08/2018 Inactive ibuprofen 600 mg tablet RxNorm: 609706 1 Tablet(s) PO TID 12/1101/07/2018 Inactive ibuprofen 600 mg tablet RxNorm: 653252 1 Tablet(s) PO TID 12/1112/10/2017 Inactive diazepam 5 mg tablet RxNorm: 628003 12/-1 Tablet(s) PO BID as needed muscle spasms 12/10/2017 01/08/2018 Inactive diazepam 5 mg tablet RxNorm: 556607 1/2 Tablet(s) PO BID as needed muscle spasms 1 x refill given per angelina 11/29/17 11/29/2017 12/09/2017 Inactive buspirone 15 mg tablet RxNorm: 286091 TAKE 1 TABLET BY MOUTH DAILY IN THE MORNING THEN TAKE 1/2 TABLET BY MOUTH IN THE AFTERNOON AT 1 OR 2PM THEN TAKE 1 TABLET BY MOUTH AT BEDTIM 11/19/2017 01/08/2018 Inactive Generic For:BUSPAR 15MG 2017 3:51:51 PM diazepam 5 mg tablet RxNorm: 053716 1/2 Tablet(s) PO BID as needed muscle spasms 1 x refill given per 11/13/17 11/13/2017 11/26/2017 Inactive ropinirole 0.5 mg tablet RxNorm: 099479 1 Tablet(s) PO BID 06/201703/04/2018 Active doxazosin 1 mg tablet RxNorm: 624603 TAKE 1/2 (ONE- HALF) TABLET TWICE DAILY 11/05/2017 12/31/2017 Inactive Generic For:CARDURA 1MG 11/05/2017 9:07:09 AM carvedilol 12.5 mg tablet RxNorm: 134374 TAKE 1 TABLET BY MOUTH TWICE DAILY 11/05/2017 01/08/2018 Inactive Generic For:COREG 12.5MG 11/05/2017 9:07:16 AM Dexilant 60 mg capsule, delayed release RxNorm: 579878 1 Capsule(s) PO daily 10/28/2017 10/28/2017 Inactive ibuprofen 600 mg tablet RxNorm: 726567 1 Tablet(s) PO TID 10/2411/06/2017 Inactive ibuprofen 600 mg tablet RxNorm: 045687 1 Tablet(s) PO TID 10/2410/23/2017 Inactive diazepam 5 mg tablet RxNorm: 662332 1/2 Tablet(s) PO BID as needed muscle spasms 10/24/2017 11/05/2017 Inactive Requip 0.25 mg tablet RxNorm: 323110 1 Tablet(s) PO BID 201711/04/2017 Inactive buspirone 15 mg tablet RxNorm: 701995 Tablet(s) Take 1 pill in the morning, 1/2 pill at 1 or 2pm and 1 pill at bedtime 10/21/2017 11/18/2017 Inactive prednisone 20 mg tablet RxNorm: 846392 3 Tablet(s) PO daily -Prescribed by Dr. Dann Rod on 10/20/17 10/20/20172017 Inactive Dexilant 60 mg capsule, delayed release RxNorm: 574279 1 Capsule(s) PO daily 10/18/2017 10/27/2017 Inactive tramadol 50 mg tablet RxNorm: 784058 1 Tablet(s) PO TID PRN 10/24/2017 Inactive hydrochlorothiazide 25 mg tablet RxNorm: 173449 TAKE 1 TABLET BY MOUTH IN THE MORNING 09/30/2017 01/08/2018 Inactive Generic For:HYDRODIURIL 25 MG TABLET 2017 11:36:14 AM Sinemet 10 mg-100 mg tablet RxNorm: 261503 1 Tablet(s) PO BID morning and early afternoon 09/10/2017 10/20/2017 Inactive potassium chloride ER 10 mEq capsule,extended release RxNorm: 521103 1 Capsule(s) PO TIW 07/22/2017 06/22/2018 Active buspirone 15 mg tablet RxNorm: 923455 Tablet(s) Take 1 pill in the morning, 1/2 pill at 1 or 2pm and 1 pill at bedtime 05/08/2017 09/28/2017 Inactive doxazosin 1 mg tablet RxNorm: 606011 TAKE 1/2 (ONE- HALF) TABLET TWICE DAILY 04/10/2017 11/04/2017 Inactive Generic For:CARDURA 1MG 04/10/2017 1:06:52 PM carvedilol 12.5 mg tablet RxNorm: 835504 Tablet(s) TAKE 1 TABLET BY MOUTH TWICE DAILY 04/10/2017 11/04/2017 Inactive hydrochlorothiazide 25 mg tablet RxNorm: 132645 TAKE 1 TABLET BY MOUTH IN THE MORNING 03/05/2017 09/29/2017 Inactive Generic For:HYDRODIURIL 25 MG TABLET 2017 10:38:53 AM buspirone 15 mg tablet RxNorm: 645877 Tablet(s) Take 1 pill in the morning, 1/2 pill at 1 or 2pm and 1 pill at bedtime 12/06/2016 04/28/2017 Inactive doxazosin 1 mg tablet RxNorm: 701102 1/2 Tablet(s) PO BID 201604/09/2017 Inactive lisinopril 40 mg tablet RxNorm: 073544 TAKE 1/2 TABLET BY MOUTH TWICE DAILY 09/18/2016 01/08/2018 Inactive Generic For:ZESTRIL 40MG 09/18/2016 9:08:05 AM carvedilol 12.5 mg tablet RxNorm: 396205 Tablet(s) TAKE 1 TABLET BY MOUTH TWICE DAILY 09/14/2016 04/09/2017 Inactive potassium chloride ER 10 mEq capsule,extended release RxNorm: 003580 1 Capsule(s) PO TIW 08/14/2016 07/15/2017 Inactive hydrochlorothiazide 25 mg tablet RxNorm: 353387 TAKE 1 TABLET BY MOUTH IN THE MORNING 08/06/2016 03/03/2017 Inactive Generic For:HYDRODIURIL 25 MG TABLET 2016 9:47:38 AM doxazosin 1 mg tablet RxNorm: 875554 1/2 Tablet(s) PO BID 201611/11/2016 Inactive fexofenadine 180 mg tablet RxNorm: 537577 1 Tablet(s) PO daily 04/05/2016 01/08/2018 Inactive fexofenadine 180 mg tablet RxNorm: 066508 1 Tablet(s) PO daily 04/05/2016 04/04/2016 Inactive buspirone 15 mg tablet RxNorm: 920914 Tablet(s) Tablet(s) take 1 pill in the morning, 1/2 pill at 1 or 2pm and 1 pill at bedtime 201609/07/2016 Inactive Generic For:BUSPAR 15MG 08/19/2014 9:29:55 AM carvedilol 12.5 mg tablet RxNorm: 746750 Tablet(s) TAKE 1 TABLET BY MOUTH TWICE DAILY 02/14/2016 09/10/2016 Inactive potassium chloride ER 10 mEq capsule,extended release RxNorm: 897112 1 Capsule(s) PO TIW 02/08/2016 08/13/2016 Inactive hydrochlorothiazide 25 mg tablet RxNorm: 776213 1 Tablet(s) PO QAM 01/09/2016 08/05/2016 Inactive carvedilol 12.5 mg tablet RxNorm: 122628 TAKE 1 TABLET BY MOUTH TWICE DAILY 10/18/2015 02/13/2016 Inactive Generic For:COREG 12.5MG 10/17/2015 1:04:24 PM lisinopril 40 mg tablet RxNorm: 326383 1/2 Tablet(s) PO BID 08/15/2016 Inactive Generic For:ZESTRIL 20MG 07/21/2014 9:29:18 AM doxazosin 1 mg tablet RxNorm: 222236 1/2 Tablet(s) PO BID 201510/31/2015 Inactive this is FYI for now - and will remain this in the future, does not need a fill right now doxazosin 1 mg tablet RxNorm: 939491 1 Tablet(s) PO BID 201506/29/2015 Inactive doxazosin 1 mg tablet RxNorm: 863215 1 Tablet(s) PO BID 201507/03/2015 Inactive potassium chloride ER 10 mEq capsule,extended release RxNorm: 608677 1 Capsule(s) PO TIW 06/14/2015 01/09/2016 Inactive hydrochlorothiazide 25 mg tablet RxNorm: 344176 1 Tablet(s) PO QAM 06/14/2015 01/08/2016 Inactive buspirone 15 mg tablet RxNorm: 138788 Tablet(s) take 1 pill in the morning, 1/2 pill at 1 or 2pm and 1 pill at bedtime 06/13/2015 12/09/2015 Inactive Generic For: BUSPAR 15MG 08/19/2014 9:29:55 AM carvedilol 12.5 mg tablet RxNorm: 550819 TAKE 1 TABLET BY MOUTH TWICE DAILY 05/20/2015 09/16/2015 Inactive Generic For:COREG 12.5MG 05/20/2015 9:04:34 AM carvedilol 12.5 mg tablet RxNorm: 519513 Tablet(s) 1 Tablet(s) PO BID 05/20/2015 05/19/2015 Inactive carvedilol 12.5 mg tablet RxNorm: 394985 1 Tablet(s) PO BID 05/19/2015 Inactive spironolactone 50 mg tablet RxNorm: 565753 1 Tablet(s) PO QAM 12/13/2014 06/13/2015 Inactive carvedilol 12.5 mg tablet RxNorm: 089572 1 Tablet(s) PO BID 01/11/2015 Inactive spironolactone 25 mg tablet RxNorm: 681052 1 Tablet(s) PO QAM 09/13/2014 12/12/2014 Inactive spironolactone 25 mg tablet RxNorm: 513765 1 Tablet(s) PO QAM 09/13/2014 09/12/2014 Inactive buspirone 15 mg tablet RxNorm: 902471 Tablet(s) take 1 pill in the morning, 1/2 pill at 1 or 2pm and 1 pill at bedtime 09/09/2014 03/07/2015 Inactive Generic For: BUSPAR 15MG 08/19/2014 9:29:55 AM lisinopril 40 mg tablet RxNorm: 968252 1/2 Tablet(s) PO BID 08/19/2015 Inactive Generic For:ZESTRIL 20MG 07/21/2014 9:29:18 AM Coreg 6.25 mg tablet RxNorm: 238781 1 Tablet(s) PO BID 201409/13/2014 Inactive buspirone 15 mg tablet RxNorm: 466765 TAKE 1 TABLET BY MOUTH TWICE DAILY 08/19/2014 09/08/2014 Inactive Generic For:BUSPAR 15MG 08/19/2014 9:29:55 AM lisinopril 20 mg tablet RxNorm: 128983 1 Tablet(s) PO daily TAKE 1 TABLET BY MOUTH ONCE DAILY. 07/21/2014 07/20/2014 Inactive Generic For:*ZESTRIL 20MG Generic For:*ZESTRIL 20MG 07/29/2013 11:19:45 AM lisinopril 20 mg tablet RxNorm: 772625 TAKE 1 TABLET BY MOUTH ONCE DAILY. 07/21/2014 08/24/2014 Inactive Generic For:ZESTRIL 20MG 07/21/2014 9:29:18 AM buspirone 15 mg tablet RxNorm: 054408 1 Tablet(s) BID 1 Tablet(s) PO BID 06/21/2014 08/18/2014 Inactive Tamiflu 75 mg capsule RxNorm: 963261 1 Capsule(s) PO daily 03/1203/11/2014 Inactive Tamiflu 75 mg capsule RxNorm: 747604 1 Capsule(s) PO daily 03/1203/21/2014 Inactive buspirone 15 mg tablet RxNorm: 472947 1 Tablet(s) BID 1 Tablet(s) PO BID 02/16/2014 06/20/2014 Inactive buspirone 15 mg tablet RxNorm: 656964 1 Tablet(s) PO BID 201302/15/2014 Inactive lisinopril 20 mg tablet RxNorm: 852128 Tablet(s) PO TAKE 1 TABLET BY MOUTH ONCE DAILY. 07/30/2013 07/20/2014 Inactive Generic For:*ZESTRIL 20MG Generic For:* ZESTRIL 20MG 07/29/2013 11:19:45 AM buspirone 15 mg tablet RxNorm: 453108 1 Tablet(s) PO BID 201310/18/2013 Inactive Zithromax 250 mg tablet RxNorm: 785591 Tablet(s) PO 03/18/2013 06/13/2015 Inactive as directed buspirone 15 mg tablet RxNorm: 381008 Tablet(s) PO TAKE 1 TABLET AT BEDTIME AND TAKE 1/2 A TABLET TWICE A DAY 12/22/2012 05/24/2013 Inactive buspirone 15 mg tablet RxNorm: 316710 1 at hs 1/2 bid Tablet(s) PO daily 11/27/2012 10/20/2017 Inactive buspirone 15 mg tablet RxNorm: 960745 Tablet(s) PO daily 201211/26/2012 Inactive 1 q hs and 1/2 daily buspirone 15 mg tablet RxNorm: 932349 Tablet(s) PO daily 2012 No Stop Date Active 1 q hs and 1/2 daily buspirone 15 mg tablet RxNorm: 871088 Tablet(s) PO daily 201210/26/2012 Inactive 1 q hs and 1/2 daily lisinopril 20 mg tablet RxNorm: 016373 Tablet(s) PO TAKE 1 TABLET BY MOUTH ONCE DAILY. 08/05/2012 07/29/2013 Inactive lisinopril 20 mg tablet RxNorm: 680899 Tablet(s) PO TAKE 1 TABLET BY MOUTH ONCE DAILY. 07/07/2012 08/04/2012 Inactive lisinopril 20 mg tablet RxNorm: 638200 Tablet(s) PO 01/07/2012 07/06/2012 Inactive TAKE 1 TABLET BY MOUTH ONCE DAILY. lisinopril 20 mg tablet RxNorm: 853709 Tablet(s) PO 12/10/2011 01/06/2012 Inactive TAKE 1 TABLET BY MOUTH ONCE DAILY. lisinopril 20 mg tablet RxNorm: 857167 1 Tablet(s) PO daily 01/201212/09/2011 Inactive can have #90 if prefers lisinopril 20 mg tablet RxNorm: 695140 1 Tablet(s) PO daily 01/201211/12/2011 Inactive can have #90 if prefers buspirone 15 mg tablet RxNorm: 253987 Tablet(s) PO daily 201110/26/2012 Inactive 1 q hs and 1/2 daily diazepam 5 mg tablet RxNorm: 118355 1/2 Tablet(s) PO Q12H as needed No Start Date Active Fish Oil Concentrate Oral RxNorm: Oral No Start Date Active hydrocodone 10 mg-acetaminophen 325 mg tablet RxNorm: 333920 1 Tablet(s) PO Q4H as needed No Start Date Active Duragesic 12 mcg/hr transdermal patch RxNorm: 231537 1 TD Q72H apply with 25mcg patch No Start Date Active Duragesic 25 mcg/hr transdermal patch RxNorm: 379203 1 TD Q72H apply with 12 mcg No Start Date Active Zithromax 250 mg tablet RxNorm: 359100 Tablet(s) PO No Start Date 03/17/2013 Inactive as directed Calcium 600 + D(3) oral RxNorm: 225391 oral No Start Date 01/08/2018 Inactive lisinopril 20 mg tablet RxNorm: 544371 1 Tablet(s) PO daily No Start Date 11/16/2014 Inactive Percocet 5 mg-325 mg tablet RxNorm: 7060076 1 Tablet(s) PO Q6 as needed breakthrough pain- Prescribed by Dr. Lebron on 10/20/17 No Start Date 01/08/2018 Inactive buspirone 15 mg tablet RxNorm: 896354 1 Tablet(s) PO daily No Start Date 09/24/2011 Inactive diazepam 5 mg tablet RxNorm: 487643 1 Tablet(s) PO Q6 as needed muscle spasms - Prescribed by Dr. Dann Rod on 10/20/17 No Start Date 10/23/2017 Inactive Centrum Silver Oral RxNorm: Oral No Start Date 01/08/2018 Inactive B Complex 1 Oral RxNorm: Oral No Start Date 06/13/2015 Inactive lisinopril 20 mg tablet RxNorm: 759642 1 Tablet(s) PO daily No Start Date [...] 88.8 fl 03/08/2016 Cbc With Differential Ord2 Lawrence% 10.8 % 03/08/2016 Cbc With Differential Ord2 [...] 1.66 K/ul 03/08/2016 Cbc With Differential Ord2 Lawrence ABS# 0.5 K/ul 03/08/2016 Cbc With Differential Ord2 Eos ABS# 0.1 K/ul 03/08/2016 Cbc With Differential Ord2 Baso ABS# 0.1 K/ul 03/08/2016 Comp Metabolic Ffi611 NA 137 mEq/L 03/08/2016 Comp Metabolic Aoq486 K 3.8 mEq/L 03/08/2016 Comp Metabolic Ypp868 CL 100 mEq/L 03/08/2016 Comp Metabolic Rnk265 CO2 32.0 mEq/L 03/08/2016 Comp Metabolic Oih793 ANION GAP 9 03/08/2016 Comp Metabolic Wnu433 GLUCOSE 88 mg/dL 03/08/2016 Comp Metabolic Ssj846 Creat 1.1 mg/dL 03/08/2016 Comp Metabolic Tql610 eGFR 67 ml/min/1.73m2 03/08/2016 Comp Metabolic Lkd099 BUN 17 mg/dL 03/08/2016 Comp Metabolic Faw860 B/C Ratio 15.0 Ratio 03/08/2016 Comp Metabolic Vxg912 CALCIUM 9.2 mg/dL 03/08/2016 Comp Metabolic Kts968 ALK PHOS 43 U/L 03/08/2016 Comp Metabolic Fro825 AST(SGOT) 19 U/L 03/08/2016 Comp Metabolic Nyp156 ALT(SGPT) 17 U/L 03/08/2016 Comp Metabolic Zrk442 BILI T 1.1 mg/dL 03/08/2016 Comp Metabolic Dwz607 ALBUMIN 4.2 g/dL 03/08/2016 Comp Metabolic Bwf513 TPRO 7.1 g/dL 03/08/2016 Comp Metabolic Xzo636 GLOB 2.9 g/dL 03/08/2016 Comp Metabolic Sdy163 A/G Ratio 1.5 Ratio 03/08/2016 Comp Metabolic Ifg971 Osmo 275 mOsmo 03/08/2016 Tsh Ord6 hTSH II 2.21 uIU/mL 03/08/2016 Comp Metabolic Mqp649 NA 139 mEq/L 06/15/2015 Comp Metabolic Fxp650 K 4.0 mEq/L 06/15/2015 Comp Metabolic Fpk939 CL 103 mEq/L 06/15/2015 Comp Metabolic Fgf196 CO2 28.0 mEq/L 06/15/2015 Comp Metabolic Wqk273 ANION GAP 12 06/15/2015 Comp Metabolic Jnv363 GLUCOSE 79 mg/dL 06/15/2015 Comp Metabolic Qtn341 Creat 1.0 mg/dL 06/15/2015 Comp Metabolic Cco796 eGFR 74 ml/min/1.73m2 06/15/2015 Comp Metabolic Rdd615 BUN 15 mg/dL 06/15/2015 Comp Metabolic Jnw100 B/C Ratio 14.4 Ratio 06/15/2015 Comp Metabolic Xgr679 CALCIUM 9.1 mg/dL 06/15/2015 Comp Metabolic Xrr567 ALK PHOS 30 U/L 06/15/2015 Comp Metabolic Wzm307 AST(SGOT) 20 U/L 06/15/2015 Comp Metabolic Yls401 ALT(SGPT) 15 U/L 06/15/2015 Comp Metabolic Eoo365 BILI T 1.0 mg/dL 06/15/2015 Comp Metabolic Kxk940 ALBUMIN 4.0 g/dL 06/15/2015 Comp Metabolic Bir572 TPRO 6.7 g/dL 06/15/2015 Comp Metabolic Cij813 GLOB 2.7 g/dL 06/15/2015 Comp Metabolic Pvq489 A/G Ratio 1.5 Ratio 06/15/2015 Comp Metabolic Jds935 Osmo 277 mOsmo 06/15/2015 Lipid Ord30 CHOL [...] 33.8 % 06/15/2015 Cbc With Differential Ord2 Lawrence% 14.5 % 06/15/2015 Cbc With Differential Ord2 [...] 1.33 K/ul 06/15/2015 Cbc With Differential Ord2 Lawrence ABS# 0.6 K/ul 06/15/2015 Cbc With Differential Ord2 Eos ABS# 0.2 K/ul 06/15/2015 Cbc With Differential Ord2 Baso ABS# 0.0 K/ul 06/15/2015 Cbc With Differential Ord2 New Analyzer Notice Please note new ref ranges starting 03-16-2015 due to implemntation of new five part differential hematolgy analyzer. 06/15/2015 Tsh Ord6 hTSH II 2.01 uIU/mL 06/15/2015 VIT D TOTL 5218692 VIT D TOTL 57 NG/ML 12/14/2013 CHEM 14 2260432 AST 18 U/L 12/14/2013 CHEM 14 5695798 ALT 14 IU/L 12/14/2013 CHEM 14 9255887 BUN 19 MG/DL 12/14/2013 CHEM 14 3409722 ALBUMIN 4.2 GM/DL 12/14/2013 CHEM 14 0129693 CHLORIDE 106 MMOL/L 12/14/2013 CHEM 14 7128004 BILI TOT 0.9 MG/DL 12/14/2013 CHEM 14 7061313 ALK PHOS 30 U/L 12/14/2013 CHEM 14 8253786 SODIUM 140 MMOL/L 12/14/2013 CHEM 14 3168425 CREATININE 1.10 MG/DL 12/14/2013 CHEM 14 9785425 CALCIUM 9.4 MG/DL 12/14/2013 CHEM 14 0003512 POTASSIUM 4.1 MMOL/L 12/14/2013 CHEM 14 7918700 PROT TOT 6.9 GM/DL 12/14/2013 CHEM 14 6445616 GLUCOSE 91 MG/DL 12/14/2013 CHEM 14 5007083 BICARB 30 MMOL/L 12/14/2013 CHEM 14 2612113 ANION GAP 4 MEQ/L 12/14/2013 LIPID GRP HDL TEST 56 MG/DL 12/14/2013 LIPID GRP TRIG 56 MG/DL 12/14/2013 LIPID GRP TEST LDL 138 MG/DL 12/14/2013 LIPID GRP CHOL 205 MG/DL 12/14/2013 LIPID GRP RCHOL/HDL 3.66 RATIO 12/14/2013 LIPID GRP NON-HDL CH 149 MG/DL 12/14/2013 CBC 4151520 WBC 4.1 10e9/L 12/14/2013 CBC 7760940 RBC 4.90 10e12/L 12/14/2013 CBC 2280052 HGB 14.6 g/dL 12/14/2013 CBC 0371982 HCT DET 42.2 % 12/14/2013 CBC 4205541 MCV 86.1 fL 12/14/2013 CBC 8594558 MCH 29.8 pg 12/14/2013 CBC 2341354 MCHC 34.6 g/dL 12/14/2013 CBC 4892267 PLT 166 10e9/L 12/14/2013 CBC 1996770 MPV 9.0 fL 12/14/2013 CBC 8931389 LAUREL % 52.6 % 12/14/2013 CBC 7912314 LY % 31.6 % 12/14/2013 CBC 1263441 MON % 11.9 % 12/14/2013 CBC 6563830 EOS % 3.2 % 12/14/2013 CBC 2470773 BASO % 0.7 % 12/14/2013 CBC 6310964 RDW 13.6 % 12/14/2013 CBC 7490941 ABS LAUREL 2.16 10e9/L 12/14/2013 CBC 7535650 ABS LYMPH 1.30 10e9/L 12/14/2013 CBC 7056667 ABS MONO 0.49 10e9/L 12/14/2013 CBC 7655692 ABS EOS 0.13 10e9/L 12/14/2013 CBC 1249385 ABS BASO 0.03 10e9/L 12/14/2013 CBC 4992410 RDW-SD 41.7 fL 12/14/2013 GFR CALC 4171079 GFR AA >60 ML/MIN 12/14/2013 GFR CALC 2285959 GFR NON-AA >60 ML/MIN 12/14/2013 TSH 3944675 TSH 2.444 uIU/ML 12/14/2013 CHEM 14 8243236 AST 20 U/L 12/22/2012 CHEM 14 7848334 ALT 18 IU/L 12/22/2012 CHEM 14 3861793 BUN 20 MG/DL 12/22/2012 CHEM 14 8329611 ALBUMIN 4.1 GM/DL 12/22/2012 CHEM 14 6164169 CHLORIDE 105 MMOL/L 12/22/2012 CHEM 14 5342311 BILI TOT 1.1 MG/DL 12/22/2012 CHEM 14 6144781 ALK PHOS 31 U/L 12/22/2012 CHEM 14 9636030 SODIUM 138 MMOL/L 12/22/2012 CHEM 14 6164555 CREATININE 1.07 MG/DL 12/22/2012 CHEM 14 3909451 CALCIUM 9.3 MG/DL 12/22/2012 CHEM 14 8597843 POTASSIUM 4.2 MMOL/L 12/22/2012 CHEM 14 3514859 PROT TOT 6.9 GM/DL 12/22/2012 CHEM 14 1816250 GLUCOSE 86 MG/DL 12/22/2012 CHEM 14 9709470 BICARB 30 MMOL/L 12/22/2012 CHEM 14 7545616 ANION GAP 3 MEQ/L 12/22/2012 TSH 8195430 TSH 1.886 uIU/ML 12/22/2012 GFR CALC 7404967 GFR AA >60 ML/MIN 12/22/2012 GFR CALC 5466196 GFR NON-AA >60 ML/MIN 12/22/2012 LIPID GRP HDL TEST 48 MG/DL 12/22/2012 LIPID GRP TRIG 60 MG/DL 12/22/2012 LIPID GRP TEST LDL 121 MG/DL 12/22/2012 LIPID GRP CHOL 181 MG/DL 12/22/2012 LIPID GRP RCHOL/HDL 3.77 RATIO 12/22/2012 CBC 2855986 WBC 4.1 10e9/L 12/22/2012 CBC 5509636 RBC 4.67 10e12/L 12/22/2012 CBC 3059017 HGB 14.1 g/dL 12/22/2012 CBC 8968362 HCT DET 40.6 % 12/22/2012 CBC 1717840 MCV 86.9 fL 12/22/2012 CBC 5990769 MCH 30.2 pg 12/22/2012 CBC 3518230 MCHC 34.7 g/dL 12/22/2012 CBC 6049919 PLT 170 10e9/L 12/22/2012 CBC 5810651 MPV 9.1 fL 12/22/2012 CBC 8302660 LAUREL % 49.2 % 12/22/2012 CBC 8710845 LY % 34.8 % 12/22/2012 CBC 2504872 MON % 12.1 % 12/22/2012 CBC 6181859 EOS % 3.4 % 12/22/2012 CBC 1419254 BASO % 0.5 % 12/22/2012 CBC 3310155 RDW 13.8 % 12/22/2012 CBC 9481187 ABS LAUREL 2.02 10e9/L 12/22/2012 CBC 2840708 ABS LYMPH 1.43 10e9/L 12/22/2012 CBC 9697728 ABS MONO 0.50 10e9/L 12/22/2012 CBC 2433841 ABS EOS 0.14 10e9/L 12/22/2012 CBC 5608826 ABS BASO 0.02 10e9/L 12/22/2012 CBC 7178544 RDW-SD 43.0 fL 12/22/2012 LIPID GRP HDL TEST 52 MG/DL 09/25/2011 LIPID GRP TRIG 48 MG/DL 09/25/2011 LIPID GRP TEST LDL 128 MG/DL 09/25/2011 LIPID GRP CHOL 190 MG/DL 09/25/2011 LIPID GRP RCHOL/HDL 3.65 RATIO 09/25/2011 TSH 7196177 TSH 1.923 uIU/ML 09/25/2011 GFR CALC 3973110 GFR AA >60 ML/MIN 09/25/2011 GFR CALC 6105517 GFR NON-AA >60 ML/MIN 09/25/2011 CHEM 14 3467873 AST 16 U/L 09/25/2011 CHEM 14 3287150 ALT 12 IU/L 09/25/2011 CHEM 14 6216362 BUN 28 MG/DL 09/25/2011 CHEM 14 1335158 ALBUMIN 4.2 GM/DL 09/25/2011 CHEM 14 8169046 CHLORIDE 105 MMOL/L 09/25/2011 CHEM 14 9305660 BILI TOT 0.9 MG/DL 09/25/2011 CHEM 14 1214095 ALK PHOS 35 U/L 09/25/2011 CHEM 14 3623980 SODIUM 138 MMOL/L 09/25/2011 CHEM 14 2435786 CREATININE 1.02 MG/DL 09/25/2011 CHEM 14 4227619 CALCIUM 9.2 MG/DL 09/25/2011 CHEM 14 3468867 POTASSIUM 4.1 MMOL/L 09/25/2011 CHEM 14 5487642 PROT TOT 6.7 GM/DL 09/25/2011 CHEM 14 4260941 GLUCOSE 85 MG/DL 09/25/2011 CHEM 14 3008144 BICARB 29 MMOL/L 09/25/2011 CHEM 14 5458610 ANION GAP 4 MEQ/L 09/25/2011 CBC 8228065 WBC 4.1 10e9/L 09/25/2011 CBC 7668700 RBC 4.71 10e12/L 09/25/2011 CBC 1774704 HGB 14.0 g/dL 09/25/2011 CBC 2972995 HCT DET 40.3 % 09/25/2011 CBC 3842109 MCV 85.6 fL 09/25/2011 CBC 8182672 MCH 29.7 pg 09/25/2011 CBC 8988418 MCHC 34.7 g/dL 09/25/2011 CBC 7540997 PLT 148 10e9/L 09/25/2011 CBC 1402161 MPV 9.1 fL 09/25/2011 CBC 7677476 LAUREL % 48.6 % 09/25/2011 CBC 5166801 LY % 36.6 % 09/25/2011 CBC 0354664 MON % 11.2 % 09/25/2011 CBC 0317242 EOS % 3.4 % 09/25/2011 CBC 1934746 BASO % 0.2 % 09/25/2011 CBC 2791197 RDW 13.2 % 09/25/2011 CBC 6650925 ABS LAUREL 1.99 10e9/L 09/25/2011 CBC 7543210 ABS LYMPH 1.50 10e9/L 09/25/2011 CBC 2304849 ABS MONO 0.46 10e9/L 09/25/2011 CBC 6705727 ABS EOS 0.14 10e9/L 09/25/2011 CBC 4040125 ABS BASO 0.01 10e9/L 09/25/2011 CBC 2007224 RDW-SD 40.9 fL 09/25/2011 Review of Systems [...] 10/02/2011 dry, rough, scaly lesion to left druze, right druze, bridge of left nose x 2-removed using [...] FLU VACC PRSV FREE INC ANTIG CPT-4: 88735 11/21/2017 URINALYSIS NONAUTO W/O SCOPE CPT-4: 54489 11/18/2017 PPPS, SUBSEQ VISIT CPT -4: G0439 08/01/2017 PPPS, SUBSEQ VISIT CPT -4: G0439 01/23/2016 DESTRUCT PREMALG LESION CPT-4: 11293 10/02/2011 DESTRUCT PREMALG LES 2-14 CPT-4: 85978 10/02/2011 Vital Signs Date Vital 01/01/2018 Blood Pressure 1: 164/98 Code : 8480-6 BMI: 25.4 Code : 75949-7 Heart Rate 1 : 64 bpm Height: 5'9" SpO2: 98% Weight: 172 lbs 12/10/2017 Blood Pressure 1: 130/78 Code : 8480-6 BMI: 25.4 Code : 05347-8 Heart Rate 1 : 61 bpm Height: 5'9" SpO2: 98% Weight: 172 lbs 11/05/2017 Blood Pressure 1: 130/70 Code : 8480-6 BMI: 25.8 Code : 65426-7 Heart Rate 1 : 64 bpm Height: 5'9" SpO2: 98% Weight: 175 lbs 10/21/2017 Blood Pressure 1: 142/82 Code : 8480-6 Heart Rate 1: 59 bpm Height: 5'9" SpO2: 98% Weight: 10/18/2017 Blood Pressure 1: 146/78 Code : 8480-6 BMI: 27.2 Code : 27729-1 Heart Rate 1 : 65 bpm Height: 5'9" SpO2: 96% Weight: 184 lbs 09/10/2017 Blood Pressure 1: 122/80 Code : 8480-6 BMI: 27.2 Code : 41895-3 Heart Rate 1 : 68 bpm Height: 5'9" SpO2: 96% Weight: 184 lbs 5 oz 03/14/2017 Blood Pressure 1: 128/80 Code : 8480-6 BMI: 28.1 Code : 53329-5 Heart Rate 1 : 63 bpm Height: 5'9" SpO2: 99% Weight: 190 lbs 09/11/2016 Blood Pressure 1: 120/70 Code : 8480-6 BMI: 28.2 Code : 53150-8 Heart Rate 1 : 56 bpm Height: 5'9" SpO2: 97% Weight: 191 lbs 03/07/2016 Blood Pressure 1: 124/66 Code : 8480-6 BMI: 27.3 Code : 68708-0 Heart Rate 1 : 64 bpm Height: 5'9" SpO2: 98% Weight: 185 lbs 01/23/2016 Blood Pressure 1: 140/66 Code : 8480-6 BMI: 27.2 Code : 13723-9 Heart Rate 1 : 55 bpm Height: 5'9" SpO2: 98% Waist Measure (cm): 86 cm Weight: 184 lbs 11/09/2015 Blood Pressure 1: 132/80 Code : 8480-6 BMI: 26.9 Code : 02493-3 Heart Rate 1 : 60 bpm Height: 5'9" SpO2: 98% Weight: 182 lbs 08/09/2015 Blood Pressure 1: 122/72 Code : 8480-6 BMI: 27.0 Code : 41283-6 Heart Rate 1 : 61 bpm Height: 5'9" SpO2: 98% Weight: 182 lbs 8 oz 07/04/2015 Blood Pressure 1: 132/80 Code : 8480-6 BMI: 27.0 Code : 64015-6 Heart Rate 1 : 52 bpm Height: 5'9" SpO2: 98% Weight: 183 lbs 06/30/2015 Blood Pressure 1: 162/88 Code : 8480-6 Heart Rate 1: 58 bpm 06/14/2015 Blood Pressure 1: 170/96 Code : 8480-6 BMI: 27.3 Code : 10810-4 Heart Rate 1 : 55 bpm Height: 5'9" SpO2: 98% Weight: 185 lbs 03/14/2015 Blood Pressure 1: 152/80 Code : 8480-6 Blood Pressure 1: 136/82 Code: 8480-6 BMI: 27.5 Code: 42256-2 Heart Rate 1: 56 bpm Height: 5'9" SpO2: 98% Weight: 186 lbs 12/13/2014 Blood Pressure 1: 138/80 Code : 8480-6 BMI: 27.0 Code : 70997-5 Heart Rate 1 : 70 bpm Height: 5'9" Weight: 183 lbs 11/16/2014 Blood Pressure 1: 130/70 Code : 8480-6 Heart Rate 1: 64 bpm Height: Weight: 09/09/2014 Blood Pressure 1: 140/90 Code : 8480-6 BMI: 26.3 Code : 76395-8 Heart Rate 1 : 78 bpm Height: 5'9" Weight: 178 lbs 08/25/2014 Blood Pressure 1: 160/90 Code : 8480-6 BMI: 26.3 Code : 72857-9 Heart Rate 1 : 79 bpm Height: 5'9" SpO2: 97% Weight: 178 lbs 06/10/2014 Blood Pressure 1: 142/88 Code : 8480-6 BMI: 26.7 Code : 88390-7 Heart Rate 1 : 63 bpm Height: 5'9" SpO2: 97% Weight: 181 lbs 12/03/2013 Blood Pressure 1: 138/78 Code : 8480-6 BMI: 26.0 Code : 31074-7 Heart Rate 1 : 68 bpm Height: 5'9" SpO2: 98% Weight: 176 lbs 05/25/2013 Blood Pressure 1: 152/84 Code : 8480-6 Blood Pressure 2: 138/86 Code: 8480-6 BMI: 26.1 Code: 80849-3 Heart Rate 1: 80 bpm Height: 5'9" Weight: 177 lbs 11/24/2012 Blood Pressure 1: 124/68 Code : 8480-6 BMI: 25.4 Code : 22556-1 Heart Rate 1 : 80 bpm Height: 5'9" Weight: 172 lbs 05/26/2012 Blood Pressure 1: 120/58 Code : 8480-6 BMI: 26.1 Code : 52721-8 Heart Rate 1 : 72 bpm Height: 5'9" Respiratory Rate: 16 bpm Weight: 177 lbs 11/27/2011 Blood Pressure 1: 116/68 Code : 8480-6 BMI: 25.5 Code : 36766-4 Heart Rate 1 : 60 bpm Height: 5'9" Respiratory Rate: 16 bpm Weight: 172 lbs 8 oz 10/02/2011 Blood Pressure 1: 134/74 Code : 8480-6 Heart Rate 1: 60 bpm 09/20/2011 Blood Pressure 1: 116/60 Code : 8480-6 BMI: 25.1 Code : 46484-2 Heart Rate 1 : 80 bpm Height: [...] Essential (primary) hypertension[ICD10: I10] Kelly Chau MD, [facility] CPT-4: 25548 01/01/2018 ([id number]) 28065 EST. PATIENT, LEVEL III Diagnosis: Cervicalgia[ICD10: M54.2] Diagnosis: Muscle spasm of back[ICD10: M62.830] Michelle Chau MD, [facility] CPT-4: 68941 12/10/2017 ([id number]) 37149 EST. PATIENT, LEVEL IV Diagnosis: Parkinson's disease[ICD10: G20] Diagnosis: Essential (primary) hypertension[ICD10: I10] Diagnosis: Gastro-esophageal reflux disease without esophagitis[ICD10: K21.9] Bernadette Chau MD, [facility] CPT-4: 01207 11/05/2017 ([id number]) 19110 EST. PATIENT, LEVEL III Diagnosis: Muscle spasm of back[ICD10: M62.830] Diagnosis: Essential (primary) hypertension[ICD10: I10] Bernadette Chau MD, [facility] CPT-4: 92821 10/21/2017 ([id number]) 38153 EST. PATIENT, LEVEL III Diagnosis: Gastro-esophageal reflux disease without esophagitis[ICD10: K21.9] Diagnosis: Cervicalgia[ICD10: M54.2] Michelle Chau MD, [facility] CPT-4: 16918 10/18/2017 ([id number]) 15661 EST. PATIENT, LEVEL IV Diagnosis: Essential (primary) hypertension[ICD10: I10] Diagnosis: Essential tremor[ICD10: G25.0] Bernadette Chau MD [facility] CPT- 4: 64851 09/10/2017 ([id number]) 55800 EST. PATIENT, LEVEL IV Diagnosis: Essential (primary) hypertension[ICD10: I10] Diagnosis: Essential tremor[ICD10: G25.0] Bernadette Chau MD [facility] CPT- 4: 69146 03/14/2017 ([id number]) 46404 EST. PATIENT, LEVEL IV Diagnosis: Essential (primary) hypertension[ICD10: I10] Diagnosis: Essential tremor[ICD10: G25.0] Bernadette Chau MD, [facility] CPT- 4: 87805 09/11/2016 ([id number]) 05965 EST. PATIENT, LEVEL IV Diagnosis: Essential (primary) hypertension[ICD10: I10] Diagnosis: Essential tremor[ICD10: G25.0] Bernadette Chau MD, [facility] CPT- 4: 28748 03/07/2016 ([id number]) 79719 EST. PATIENT, LEVEL III Diagnosis: Essential (primary) hypertension[ICD10: I10] Diagnosis: Essential tremor[ICD10: G25.0] Bernadette Chau MD [facility] CPT- 4: 07502 11/09/2015 ([id number]) 64743 EST. PATIENT, LEVEL III Diagnosis: Essential (primary) hypertension[ICD10: I10] [facility] CPT-4: 07665 08/09/2015 ([id number]) 04888 EST. PATIENT, LEVEL III Diagnosis: Essential (primary) hypertension[ICD10: I10] [facility] CPT-4: 17968 07/04/2015 ([id number]) Miscellaneous no charge Diagnosis: Essential (primary) hypertension[ICD10: I10] Bernadette Chau MD, [facility] CPT-4: 40678 06/30/2015 ([id number]) 52122 EST. PATIENT, LEVEL IV Diagnosis: Essential (primary) hypertension[ICD10: I10] Diagnosis: Male erectile disorder[ICD10: F52.21] Diagnosis: Gastro-esophageal reflux disease without esophagitis[ICD10: K21.9] Bernadette Chau MD, [facility] CPT-4: 93466 06/14/2015 ([id number]) 32094 EST. PATIENT, LEVEL IV Diagnosis: Essential (primary) hypertension[ICD10: I10] Diagnosis: Low back pain[ICD10: M54.5] Diagnosis: Malignant neoplasm of prostate[ICD10: C61] Bernadette Chau MD, [facility] CPT-4: 15286 03/14/2015 ([id number]) 96544 EST. PATIENT, LEVEL III Diagnosis: Essential (primary) hypertension[ICD10: I10] Bernadette Chau MD, [facility] CPT-4: 81960 12/13/2014 ([id number]) 18517 EST. PATIENT, LEVEL II Diagnosis: ESSENTIAL HYPERTENSION[ICD9: 401.9] Bernadette Chau MD, [facility] CPT-4: 21397 11/16/2014 ([id number]) 59906 EST. PATIENT, LEVEL III Diagnosis: ESSENTIAL HYPERTENSION[ICD9: 401.9] Diagnosis: GENERALIZED ANXIETY DISEASE[ICD9: 300.02] Bernadette Chau MD, [facility] CPT-4: 29357 09/09/2014 ([id number]) 05411 EST. PATIENT, LEVEL IV Diagnosis: ESSENTIAL HYPERTENSION[ICD9: 401.9] Diagnosis: GENERALIZED ANXIETY DISEASE[ICD9: 300.02] Bernadette Chau MD, [facility] CPT-4: 49402 08/25/2014 ([id number]) 52230 EST. PATIENT, LEVEL IV Diagnosis: ESSENTIAL HYPERTENSION[ICD9: 401.9] Diagnosis: GENERALIZED ANXIETY DISEASE[ICD9: 300.02] Diagnosis: ESOPHAGEAL REFLUX[ICD9: 530.81] Bernadette Chau MD, [facility] CPT- 4: 94617 06/10/2014 ([id number]) 47636 EST. PATIENT, LEVEL IV Diagnosis: ESSENTIAL HYPERTENSION[ICD9: 401.9] Diagnosis: ESOPHAGEAL REFLUX[ICD9: 530.81] Bernadette Chau MD, [facility] CPT- 4: 85068 12/03/2013 ([id number]) 56449 EST. 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 PATIENT, LEVEL IV Diagnosis: ESSENTIAL HYPERTENSION[SNOMED: 19383546] Diagnosis: Nausea[ICD9: 787.02] Diagnosis: ESOPHAGEAL REFLUX[ICD9: 530.81] Bernadette Chau MD, [facility] CPT- 4: 96677 11/24/2012 ([id number]) 11938 EST. 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 PATIENT, LEVEL III Diagnosis: ESSENTIAL HYPERTENSION[SNOMED: 13806407] Bernadette Chau MD, [facility] CPT-4: 09884 11/27/2011 ([id number]) OFFICE VISIT, NEW - LEVEL 3 Diagnosis: ESSENTIAL HYPERTENSION[SNOMED: 82324230] Diagnosis: Impotence[ICD9: 607.84] Diagnosis: Osteoarthritis[ICD9: 715.90] Bernadette Chau MD, [facility] CPT- 4: 64803 09/20/2011 Plan of Care Planned Activity Notes Codes Status Date App[facility]ment[phone] [place] ([facility] min[facility] Moderate 01/01/2018 Patient Education: Patient Medication Summary Completed 01/01/2018 App[facility]ment[phone] (15 min) Moderate 12/10/2017 Patient Education: Patient Medication Summary Completed 12/10/2017 Appointment: Injection 11/21/2017 Patient Education: Patient Medication Summary Completed 11/21/2017 Appointment: Lab Draw 11/18/2017 Patient Education: Patient Medication Summary Completed 11/18/2017 Appointment: Bernadette Chau WPtel: [phone] [facility] (15 min) Moderate 11/05/2017 Patient Education: Patient Medication Summary Completed 11/05/2017 Appointment: Bernadette Chau WPtel: [phone] [facility] [place] (15 min) Moderate 10/22/2017 Patient Education: Patient Medication Summary Completed 10/21/2017 Appointment: Michelle Dutton WPtel: [phone] [phone] [place] (30 min) Complex 10/18/2017 Patient Education: Patient Medication Summary Completed 10/18/2017 Appointment: Bernadette Chau WPtel: [phone] [facility] [place] (15 min) Moderate 09/10/2017 Patient Education: Patient Medication Summary Completed 09/10/2017 Patient Education: Patient Medication Summary Completed 08/01/2017 Appointment: Bernadette Chau WPtel: [phone] [facility] [place] (15 min) Moderate 03/14/2017 Patient Education: Patient Medication Summary Completed 03/14/2017 Appointment: Bernadette Chau WPtel: [phone] [facility] [place] (15 min) Moderate 09/11/2016 Patient Education: Patient Medication Summary Completed 09/11/2016 Appointment: Bernadette Chau WPtel: [phone] [facility] [place] (15 min) Moderate 03/07/2016 Patient Education: Patient Medication Summary Completed 03/07/2016 Appointment: Kelly Mancera WPtel: [phone] [facility] [place] MCR - Annual Wellness Visit 01/23/2016 Patient Education: Patient Medication Summary Completed 01/23/2016 Appointment: [phone] [place] ([facility] min) Moderate 11/09/2015 Patient Education: Patient Medication Summary Completed 11/09/2015 Patient Education: Hypertension Completed 11/09/2015 Appointment: [phone] [facility] [place] (15 min) Moderate 08/09/2015 Patient Education: Patient Medication Summary Completed 08/09/2015 Patient Education: Hypertension Completed 08/09/2015 Appointment: Bernadette Chau WPtel: [phone] [facility] [place] (15 min) Moderate 07/04/2015 Patient Education: Patient Medication Summary Completed 07/04/2015 Patient Education: Hypertension Completed 07/04/2015 Patient Education: Patient Medication Summary Completed 06/30/2015 Appointment: Bernadette Chau WPtel: [facility] [place] (30 min) Complex 06/14/2015 Patient Education: Patient Medication Summary Completed 06/14/2015 Appointment: Bernadette Chau WPtel: [facility] [place] (15 min) Moderate 03/14/2015 Patient Education: Patient Medication Summary Completed 03/14/2015 Patient Education: Hypertension Completed 03/14/2015 Appointment: Bernadette Chau WPtel: [address] [place] [address] [place] (15 min) Moderate 12/13/2014 Patient Education: Patient Medication Summary Completed 12/13/2014 Patient Education: Hypertension Completed 12/13/2014 Appointment: Bernadette Chau WPtel: [facility] [place] Follow up 12/09/2014 Appointment: Nurse Visit 11/16/2014 Patient Education: Patient Medication Summary Completed 11/16/2014 Patient Education: Hypertension Completed 11/16/2014 Appointment: Bernadette Chau WPtel: [facility] [place] (15 min) Moderate 09/09/2014 Patient Education: Patient Medication Summary Completed 09/09/2014 Patient Education: Hypertension Completed 09/09/2014 Appointment: Bernadette Chau WPtel: [address] [place] [address] (10 min) Simple 08/25/2014 Patient Education: Patient Medication Summary Completed 08/25/2014 Patient Education: Hypertension Completed 08/25/2014 Appointment: (15 min) Moderate 08/23/2014 Appointment: Bernadette Chau WPtel: [address] [place], [place] [phone] Follow up 06/10/2014 Patient Education: Patient Medication Summary Completed 06/10/2014 Patient Education: Hypertension Completed 06/10/2014 Appointment: Bernadette Chau WPtel: [address] [place], [place] [phone] Follow up 12/03/2013 Patient Education: Patient Medication Summary Completed 12/03/2013 Appointment: Bernadette Chau WPtel: [address] [place], [place] [phone] Follow up 05/25/2013 Patient Education: Patient Medication Summary Completed 05/25/2013 Patient Education: Hypertension Completed 05/25/2013 Appointment: Bernadette Chau WPtel: [address] [place], [place] [phone] Follow up 11/24/2012 Patient Education: Patient Medication Summary Completed 11/24/2012 Patient Education: Hypertension Completed 11/24/2012 Appointment: Bernadette Chau WPtel: [address] [place], [place] [phone] Established Patient Preventative visit 05/26/2012 Patient Education: Patient Medication Summary Completed 05/26/2012 Patient Education: Hypertension Completed 05/26/2012 Appointment: Bernadette Chau WPtel: [address] [place], [place] [phone] Follow up 11/27/2011 Patient Education: Patient Medication Summary Completed 11/27/2011 Patient Education: High Blood Pressure: Essential Hypertension Completed 2011 Appointment: Michelle Dutton WPtel: [address] [place], [place] [phone] Surgical Procedure 10/02/2011 Patient Education: Patient Medication Summary Completed 10/02/2011 Appointment: [phone] New Patient 09/20/2011 Patient Education: Patient Medication Summary Completed 09/20/2011 Patient Education: High Blood Pressure: Essential Hypertension Completed 2011 Instructions No Instructions
--- OUTSIDE RECORDS SUMMARY | 2018-01-14 16:37 | XMS REPORT | Continuity of Care Document ---
Author Author [facility] Organization [facility] Address Unknown Phone Unavailable Allergies Active Description Code Type Severity Reaction Onset Reported/Identified Relationship to Patient Clinical Status Yes No Known Drug Allergies [id number] Drug Allergy Unknown N/A 10/20/2017 Medications There [...] DEVI ARITA MD Ot M54.2 CERVICALGIA 10/22/2017 DEVI ARITA MD Ot Z85.46 PERSONAL HISTORY OF MALIGNANT NEOPLASM O 10/22/2017 LYLA WHITE, DEVI Benson Ot Z90.79 ACQUIRED ABSENCE OF OTHER GENITAL ORGAN( 01/04/2018 MAYO HAYES MD Ot E05.90 THYROTOXICOSIS, UNSP WITHOUT THYROTOXIC 01/04/2018 MAYO HAYES MD Ot E86.0 DEHYDRATION 01/04/2018 MAYO HAYES MD Ot E86.1 HYPOVOLEMIA 01/04/2018 MAYO HAYES MD Ot E87.1 HYPO-OSMOLALITY AND HYPONATREMIA 01/04/2018 MAYO HAYES MD Ot F32.9 MAJOR DEPRESSIVE DISORDER, SINGLE EPISOD 01/04/2018 MAYO HAYES MD Ot G20 PARKINSON'S DISEASE 01/04/2018 MAYO HAYES MD Ot G47.10 HYPERSOMNIA, UNSPECIFIED 01/04/2018 MAYO HAYES MD Ot I10 ESSENTIAL (PRIMARY) HYPERTENSION 01/04/2018 MAYO HAYES MD Ot I95.2 HYPOTENSION DUE TO DRUGS 01/04/2018 MAYO HAYES MD Ot K59.09 OTHER CONSTIPATION 01/04/2018 MAYO HAYES MD Ot M48.02 SPINAL STENOSIS, CERVICAL REGION 01/04/2018 MAYO HAYES MD Ot M54.12 RADICULOPATHY, CERVICAL REGION 01/04/2018 MAYO HAYES MD Ot R00.0 TACHYCARDIA, UNSPECIFIED 01/04/2018 MAYO HAYES MD Ot R30.0 DYSURIA 01/04/2018 MAYO HAYES MD Ot R39.11 HESITANCY OF MICTURITION 01/04/2018 MAYO HAYES MD Ot T40.2X5A ADVERSE EFFECT OF OTHER OPIOIDS, INITIAL 01/04/2018 MAYO HAYES MD Ot T42.4X5A ADVERSE EFFECT OF BENZODIAZEPINES, INITI 01/04/2018 MAYO HAYES MD Ot T44.6X5A ADVERSE EFFECT OF ALPHA-ADRENORECEPTOR A 01/04/2018 MAYO HAYES MD Ot T50.2X5A ADVRS EFF OF CRBNC-ANHYDR INHIBTR, BENZO 01/04/2018 MAYO HAYES MD Ot Z85.46 PERSONAL HISTORY OF MALIGNANT NEOPLASM O 01/04/2018 MAYO HAYES MD Ot Z87.891 PERSONAL HISTORY OF NICOTINE DEPENDENCE 01/04/2018 MAYO HAYES MD Ot Z90.79 ACQUIRED ABSENCE OF OTHER GENITAL ORGAN( 01/08/2018 MAYO HAYES MD Ot E05.90 THYROTOXICOSIS, UNSP WITHOUT THYROTOXIC 01/08/2018 MAYO HAYES MD Ot E86.0 DEHYDRATION 01/08/2018 MAYO HAYES MD Ot E86.1 HYPOVOLEMIA 01/08/2018 MAYO HAYES MD Ot E87.1 HYPO-OSMOLALITY AND HYPONATREMIA 01/08/2018 MAYO HAYES MD Ot F32.9 MAJOR DEPRESSIVE DISORDER, SINGLE EPISOD 01/08/2018 MAYO HAYES MD Ot G20 PARKINSON'S DISEASE 01/08/2018 MAYO HAYES MD Ot G47.10 HYPERSOMNIA, UNSPECIFIED 01/08/2018 MAYO HAYES MD Ot I10 ESSENTIAL (PRIMARY) HYPERTENSION 01/08/2018 MAYO HAYES MD Ot I27.20 PULMONARY HYPERTENSION, UNSPECIFIED 01/08/2018 MAYO HAYES MD Ot I95.2 HYPOTENSION DUE TO DRUGS 01/08/2018 MAYO HAYES MD Ot K59.09 OTHER CONSTIPATION 01/08/2018 MAYO HAYES MD Ot M48.02 SPINAL STENOSIS, CERVICAL REGION 01/08/2018 MAYO HAYES MD Ot M54.12 RADICULOPATHY, CERVICAL REGION 01/08/2018 MAYO HAYES MD Ot R00.0 TACHYCARDIA, UNSPECIFIED 01/08/2018 MAYO HAYES MD Ot R30.0 DYSURIA 01/08/2018 MAYO HAYES MD Ot R39.11 HESITANCY OF MICTURITION 01/08/2018 MAYO HAYES MD Ot T40.2X5A ADVERSE EFFECT OF OTHER OPIOIDS, INITIAL 01/08/2018 MAYO HAYES MD Ot T42.4X5A ADVERSE EFFECT OF BENZODIAZEPINES, INITI 01/08/2018 MAYO HAYES MD Ot T44.6X5A ADVERSE EFFECT OF ALPHA-ADRENORECEPTOR A 01/08/2018 MAYO HAYES MD Ot T50.2X5A ADVRS EFF OF CRBNC-ANHYDR INHIBTR, BENZO 01/08/2018 MAYO HAYES MD Ot Z85.46 PERSONAL HISTORY OF MALIGNANT NEOPLASM O 01/08/2018 MAYO HAYES MD Ot Z87.891 PERSONAL HISTORY OF NICOTINE DEPENDENCE 01/08/2018 MAYO HAYES MD Ot Z90.79 ACQUIRED ABSENCE OF OTHER GENITAL ORGAN( 01/09/2018 FREDDY WHITE, MAYO Davis Ot E05.90 THYROTOXICOSIS, UNSP WITHOUT THYROTOXIC 01/09/2018 MAYO HAYES MD Ot E86.0 DEHYDRATION 01/09/2018 MAYO HAYES MD Ot E86.1 HYPOVOLEMIA 01/09/2018 MAYO HAYES MD Ot E87.1 HYPO-OSMOLALITY AND HYPONATREMIA 01/09/2018 MAYO HAYES MD Ot F32.9 MAJOR DEPRESSIVE DISORDER, SINGLE EPISOD 01/09/2018 MAYO HAYES MD Ot G20 PARKINSON'S DISEASE 01/09/2018 MAYO HAYES MD Ot G47.10 HYPERSOMNIA, UNSPECIFIED 01/09/2018 MAYO HAYES MD Ot I10 ESSENTIAL (PRIMARY) HYPERTENSION 01/09/2018 MAYO HAYES MD Ot I95.2 HYPOTENSION DUE TO DRUGS 01/09/2018 MAYO HAYES MD Ot K59.09 OTHER CONSTIPATION 01/09/2018 MAYO HAYES MD Ot M48.02 SPINAL STENOSIS, CERVICAL REGION 01/09/2018 MAYO HAYES MD Ot M54.12 RADICULOPATHY, CERVICAL REGION 01/09/2018 MAYO HAYES MD Ot R00.0 TACHYCARDIA, UNSPECIFIED 01/09/2018 MAYO HAYES MD Ot R30.0 DYSURIA 01/09/2018 MAYO HAYES MD Ot R39.11 HESITANCY OF MICTURITION 01/09/2018 MAYO HAYES MD Ot T40.2X5A ADVERSE EFFECT OF OTHER OPIOIDS, INITIAL 01/09/2018 MAYO HAYES MD Ot T42.4X5A ADVERSE EFFECT OF BENZODIAZEPINES, INITI 01/09/2018 MAYO HAYES MD Ot T44.6X5A ADVERSE EFFECT OF ALPHA-ADRENORECEPTOR A 01/09/2018 MAYO HAYES MD Ot T50.2X5A ADVRS EFF OF CRBNC-ANHYDR INHIBTR, BENZO 01/09/2018 MAYO HAYES MD Ot Z85.46 PERSONAL HISTORY OF MALIGNANT NEOPLASM O 01/09/2018 MAYO HAYES MD Ot Z87.891 PERSONAL HISTORY OF NICOTINE DEPENDENCE 01/09/2018 MAYO HAYES MD Ot Z90.79 ACQUIRED ABSENCE OF OTHER GENITAL ORGAN( 01/09/2018 MAYO HAYES MD Ot E05.90 THYROTOXICOSIS, UNSP WITHOUT THYROTOXIC 01/09/2018 MAYO HAYES MD Ot E86.0 DEHYDRATION 01/09/2018 MAYO HAYES MD Ot E86.1 HYPOVOLEMIA 01/09/2018 MAYO HAYES MD Ot E87.1 HYPO-OSMOLALITY AND HYPONATREMIA 01/09/2018 MAYO HAYES MD Ot F32.9 MAJOR DEPRESSIVE DISORDER, SINGLE EPISOD 01/09/2018 MAYO HAYES MD Ot G20 PARKINSON'S DISEASE 01/09/2018 MAYO HAYES MD Ot G47.10 HYPERSOMNIA, UNSPECIFIED 01/09/2018 MAYO HAYES MD Ot I10 ESSENTIAL (PRIMARY) HYPERTENSION 01/09/2018 MAYO HAYES MD Ot I95.2 HYPOTENSION DUE TO DRUGS 01/09/2018 MAYO HAYES MD Ot K59.09 OTHER CONSTIPATION 01/09/2018 MAYO HAYES MD Ot M48.02 SPINAL STENOSIS, CERVICAL REGION 01/09/2018 MAYO HAYES MD Ot M54.12 RADICULOPATHY, CERVICAL REGION 01/09/2018 MAYO HAYES MD Ot R00.0 TACHYCARDIA, UNSPECIFIED 01/09/2018 MAYO HAYES MD Ot R30.0 DYSURIA 01/09/2018 MAYO HAYES MD Ot R39.11 HESITANCY OF MICTURITION 01/09/2018 MAYO HAYES MD Ot T40.2X5A ADVERSE EFFECT OF OTHER OPIOIDS, INITIAL 01/09/2018 MAYO HAYES MD Ot T42.4X5A ADVERSE EFFECT OF BENZODIAZEPINES, INITI 01/09/2018 MAYO HAYES MD Ot T44.6X5A ADVERSE EFFECT OF ALPHA-ADRENORECEPTOR A 01/09/2018 MAYO HAYES MD Ot T50.2X5A ADVRS EFF OF CRBNC-ANHYDR INHIBTR, BENZO 01/09/2018 MAYO HAYES MD Ot Z85.46 PERSONAL HISTORY OF MALIGNANT NEOPLASM O 01/09/2018 MAYO HAYES MD Ot Z87.891 PERSONAL HISTORY OF NICOTINE DEPENDENCE 01/09/2018 MAYO HAYES MD Ot Z90.79 ACQUIRED ABSENCE OF OTHER [...] 0.50-2.00 Bacterial blood culture - 01/03/18 23:10 QUANTITY OF GROWTH . [facility] Bacterial blood culture [id number] NR Bacterial blood culture - 01/03/18 23:40 Bacterial blood culture NG NR Complete urinalysis with reflex to culture - [...] <=0.05 miu/l (units/ volume) 1.78 u[iU]/mL 0.35-4.94 [id number] - 01/06/18 05:29 Thyroglobulin [mass/volume] in serum or plasma 0.04 % 0.00-0.50 Serum or plasma thyroperoxidase antibody assay (units/volume) 25.80 % 0.00-100.00 Complete blood count (CBC) with automated white blood cell (WBC) differential - 01/14/18 15:17 Blood leukocytes automated count (number/volume) 4.9 10*3/uL 4.3-11.0 Blood erythrocytes automated count (number/volume) 4.29 10*6/uL 4.35-5.85 Venous blood hemoglobin measurement (mass/volume) 13.1 g/dL 13.3-17.7 Blood hematocrit (volume fraction) 39 % 40-54 Automated erythrocyte mean corpuscular volume 90 [foz_us] 80-99 Automated erythrocyte mean corpuscular hemoglobin (mass per erythrocyte) 31 pg 25-34 Automated erythrocyte mean corpuscular hemoglobin concentration measurement ( mass/volume) 34 g/dL 32-36 Automated erythrocyte distribution width ratio 14.1 % 10.0-14.5 Automated blood platelet count (count/volume) 181 10*3/uL 130-400 Automated blood platelet mean volume measurement 8.2 [foz_us] 7.4-10.4 Automated blood neutrophils/100 leukocytes 57 % 42-75 Automated blood lymphocytes/100 leukocytes 23 % 12-44 Blood monocytes/100 leukocytes 15 % 0-12 Automated blood eosinophils/100 leukocytes 3 % 0-10 Automated blood basophils/100 leukocytes 1 % 0-10 Blood neutrophils automated count (number/volume) 2.8 10*3 1.8-7.8 Blood lymphocytes automated count (number/volume) 1.2 10*3 1.0-4.0 Blood monocytes automated count (number/volume) 0.8 10*3 0.0-1.0 Automated eosinophil count 0.2 10*3/uL 0.0-0.3 Automated blood basophil count (count/volume) 0.1 10*3/uL 0.0-0.1 PT panel in platelet poor plasma by coagulation assay - 01/14/18 15:17 Prothrombin time (PT) in platelet poor plasma by coagulation assay 13.7 s 12.2-14.7 INR in platelet poor plasma or blood by coagulation assay 1.1 0.8-1.4 Activated partial thromboplastin time (aPTT) in platelet poor plasma bycoagulation assay - 01/14/18 15:17 Activated partial thromboplastin time (aPTT) in platelet poor plasma bycoagulation assay 29 s 24-35 Comprehensive metabolic panel - 01/14/18 15:17 Serum or plasma sodium measurement (moles/volume) 140 mmol/L 135-145 Serum or plasma potassium measurement (moles/volume) 3.9 mmol/L 3.6-5.0 Serum or plasma chloride measurement (moles/volume) 102 mmol/L 98-107 Carbon dioxide 28 mmol/L 21-32 Serum or plasma anion gap determination (moles/volume) 10 mmol/L 5-14 Serum or plasma urea nitrogen measurement (mass/volume) 17 mg/dL 7-18 Serum or plasma creatinine measurement (mass/volume) 1.18 mg/dL 0.60-1.30 Serum or plasma urea nitrogen/creatinine mass ratio 14 NRG Serum or plasma creatinine measurement with calculation of estimated glomerular filtration rate 60 NRG Serum or plasma glucose measurement (mass/volume) 92 mg/dL 70-105 Serum or plasma calcium measurement (mass/volume) 9.6 mg/dL 8.5-10.1 Serum or plasma total bilirubin measurement (mass/volume) 0.7 mg/dL 0.1-1.0 Serum or plasma alkaline phosphatase measurement (enzymatic activity/volume) 35 U/L 40-136 Serum or plasma aspartate aminotransferase measurement (enzymatic activity/ volume) 18 U/L 5-34 Serum or plasma alanine aminotransferase measurement (enzymatic activity/volume ) 13 U/L 0-55 Serum or plasma protein measurement (mass/volume) 7.2 g/dL 6.4-8.2 Serum or plasma albumin measurement (mass/volume) 4.3 g/dL 3.2-4.5 CALCIUM CORRECTED 9.4 mg/dL 8.5-10.1 Magnesium - 01/14/18 15:17 Magnesium 2.2 mg/dL 1.8-2.4 Fibrin D-dimer FEU measurement in platelet poor plasma (mass/volume) - 15:17 Fibrin D-dimer FEU measurement in platelet poor plasma (mass/volume) 0.66 ug/mL 0.00-0.49 Encounters ACCT No. Visit Date/Time Discharge Status Pt. Type Provider Facility Loc./Unit Complaint [id number] 01/04/2018 12:32:00 01/08/2018 17:03:00 DIS Inpatient FREDDY WHITE, MAYO Davis [facility] 4TH HYPONATREMIA, SINUS TACHYCARDIA,HYPOVOLEMIA, [id number] 10/20/2017 02:37:00 10/20/2017 05:28:00 DIS Emergency LYLA WHITE, DEVI Benson [facility] ER NECK HEAD PAIN [id number] 03/14/2015 15:32:00 03/14/2015 23:59:59 CLS Outpatient MURALI WHITE, BONNIE Medina [facility] RAD [id number] 01/14/2018 15:08:00 ACT Emergency DYANA WHITE, SURYA Davis [facility] ER CP, BP IS HIGH
[2018-01-14 19:10] VITALS: BP 160/90
== END 2018-01-14 19:10 | disposition home or self-care (01) ==
LOC: EDUNIT# 15:07 → ER 15:08
DX: R07.89 Other chest pain (principal); I10 Essential (primary) hypertension; G20 Parkinson's disease; Z85.46 Personal history of malignant neoplasm of prostate; Z79.82 Long term (current) use of aspirin; Z87.891 Personal history of nicotine dependence; Z90.79 Acquired absence of other genital organ(s)
CPT/HCPCS: 36415; 71045; 80053; 83735; 83874; 83880; 84484; 85025; 85379; 85610; 85730; 93005; 93041

== ENCOUNTER → 2019-03-03 | Outpatient (CLI) | payer MEDICARE ==
[~2019-03-03] MED LIST changes: +REGADENOSON 0.4 MG/5 ML SYR (LEXISCAN) IV ONE
== END ==
LOC: CARD 10:02
PROVIDERS: ATTEND Internal Medicine Cardiovascular Disease
DX: I08.1 Rheumatic disorders of both mitral and tricuspid valves (principal); E78.5 Hyperlipidemia, unspecified; I10 Essential (primary) hypertension; R60.0 Localized edema
CPT/HCPCS: 93306

== ENCOUNTER → 2019-03-11 | Outpatient (CLI) | payer MEDICARE ==
[~2019-03-11] VITALS: Ht 175 cm; Wt 95.0 kg
[~2019-03-11] MED LIST changes: +CATHETER FLUSH 10 ML SYR IV PRN
[2019-03-11 13:20] VITALS: BP 170/107
[2019-03-11 13:21] VITALS: BP 152/88
--- NOTE | 2019-03-11 21:14 | STRESS TEST ---
DATE OF SERVICE: 03/11/2019 LEXISCAN MYOVIEW STRESS TEST REPORT REFERRING PHYSICIAN: Dr. Chau. Baseline heart rate is 91, baseline blood pressure 126/100. Baseline EKG is sinus rhythm with occasional APCs and PVCs. In summary, the patient received 10.55 mCi of technetium-99 Myoview and the resting images were obtained. Then, the patient received 0.4 mg of Lexiscan followed by 29.5 mCi of technetium-99 Myoview. The patient continued to have frequent APCs and short runs of paroxysmal atrial tachycardia. The resting and stress images were reviewed and compared in the short axis, horizontal long axis, and vertical long axis views. Review of the images showed diaphragmatic attenuation with no significant ischemia or infarction. SSS is 5. SDS is 2. TID value 1.04. On the gated images, the left ventricle appeared to be normal in size with normal contractility. Calculated ejection fraction 53%. CONCLUSION: 1. The patient tolerated Lexiscan well. 2. Baseline sinus rhythm with frequent APCs and PVCs and short runs of paroxysmal atrial tachycardia. 3. Diaphragmatic attenuation with no significant ischemia or infarction on SPECT images. 4. Normal left ventricular size with normal contractility. Calculated ejection fraction 53%. Job ID: [id number] DocumentID: [id number] Dictated Date: 03/11/2019 15:49:31 [employer] Date: 03/11/2019 21:13:56 Dictated By: LEON MINER MD
== END ==
LOC: CARD 11:36
PROVIDERS: ATTEND Internal Medicine Cardiovascular Disease
DX: I10 Essential (primary) hypertension (principal); E78.2 Mixed hyperlipidemia; R60.0 Localized edema; R06.09 Other forms of dyspnea
CPT/HCPCS: 78452; 93017

== ENCOUNTER → 2019-12-02 | Outpatient (CLI) | payer MEDICARE ==
[~2019-12-02] VITALS: Ht 175 cm; Wt 97.0 kg
[~2019-12-02] MED LIST changes: +ACHYD1T PO; -CATHETER FLUSH 10 ML SYR IV PRN; -DIAZ5TAB3 PO; +DIAZ5TAB49 PO; -HYDR-3820 PO; -ROPI0.5T2 PO; +ROPI0.5T4 PO
[2019-12-02] MEDS: CATHETER FLUSH 10 ML SYR IV PRN ×2 (08:01→09:10)
[2019-12-02 09:08] VITALS: BP 154/99
--- NOTE | 2019-12-02 14:02 | Cardiology Stress Test Report ---
Stress Test Report Date of Procedure/Referring: Date of Procedure: Dec 02, 2019 PCP Leon Moctezuma MD Admitting Physician Bernadette Chau MD Indications: HTN Baseline Heart Rate: 72 Baseline Blood Pressure: Blood Pressure Systolic: 154 Blood Pressure Diastolic: 99 Baseline Vitals Vital Signs Date Time Temp Pulse Resp B/P (MAP) Pulse Ox O2 Delivery O2 Flow Rate FiO2 12/02/19 09:08 53 16 154/99 (117) 96 Room Air Baseline EKG: Baseline EKG: NSR with APC Summary After explaining the procedure to the patient, he signed a consent and then brought to the stress nuclear laboratory. Patient received 0.4 mg Lexiscan for stress test, ECG, heart rate and blood pressure were monitored continuously. Resting and stress dose of radio tracer were injected, imaging was acquired and reviewed in short axis, horizontal long axis and vertical long axis views. TID: 1.17 SSS: 4 SDS: 2 EF: 57 1. Patient tolerated lexiscan well 2. No ischemia or infarction on SPECT 3. Normal LV size EF 57% LEON MOCTEZUMA MD Dec 02, 2019 14:02
== END ==
LOC: CARD 08:00
PROVIDERS: ATTEND Internal Medicine Cardiovascular Disease
DX: I10 Essential (primary) hypertension (principal); E78.2 Mixed hyperlipidemia; G20 Parkinson's disease; E66.9 Obesity, unspecified; R06.09 Other forms of dyspnea
CPT/HCPCS: 78452; 93017; A9502

== ENCOUNTER 2020-11-16 22:17 | Emergency (ER) | payer MEDICARE ==
[~2020-11-16] VITALS: Ht 172.7 cm; Wt 100.0 kg
[~2020-11-16 22:17] MED LIST changes: -REGADENOSON 0.4 MG/5 ML SYR (LEXISCAN) IV ONE
[2020-11-16 22:37] LABS: BASOPHILS % (AUTO) 1 % (0-10); EOSINOPHILS # (AUTO) 0.2 10^3/uL (0.0-0.3); EOSINOPHILS % (AUTO) 4 % (0-10); HEMATOCRIT 40 % (40-54); HEMOGLOBIN 13.9 g/dL (13.3-17.7); LYMPHOCYTES # (AUTO) 1.7 10^3/uL (1.0-4.0); LYMPHOCYTES % (AUTO) 35 % (12-44); MEAN CORPUSCULAR HEMOGLOBIN 31 pg (25-34); MEAN CORPUSCULAR HGB CONC 35 g/dL (32-36); MEAN CORPUSCULAR VOLUME 89 fL (80-99); MEAN PLATELET VOLUME 8.4 fL (9.0-12.2); MONOCYTES # (AUTO) 0.5 10^3/uL (0.0-1.0); MONOCYTES % (AUTO) 11 % (0-12); NEUTROPHILS # (AUTO) 2.4 10^3/uL (1.8-7.8); NEUTROPHILS % (AUTO) 49 % (42-75); PLATELET COUNT 164 10^3/uL (130-400); WHITE BLOOD COUNT 4.8 10^3/uL (4.3-11.0)
[2020-11-16 22:50] LABS: PROTHROMBIN TIME PATIENT 13.3 SEC (12.2-14.7)
[2020-11-16 22:51] LABS: ALBUMIN 4.3 GM/DL (3.2-4.5); CHLORIDE 100 MMOL/L (98-107); POTASSIUM 3.4 MMOL/L (3.6-5.0); SODIUM 137 MMOL/L (135-145)
[2020-11-16 22:52] LABS: CALCIUM 9.2 MG/DL (8.5-10.1)
[2020-11-16 22:53] LABS: GLUCOSE 111 MG/DL (70-105)
[2020-11-16 22:54] LABS: TOTAL PROTEIN 7.5 GM/DL (6.4-8.2)
[2020-11-16 22:55] LABS: BILIRUBIN,TOTAL 0.9 MG/DL (0.1-1.0); CARBON DIOXIDE 27 MMOL/L (21-32)
[2020-11-16 22:57] LABS: ALKALINE PHOSPHATASE 45 U/L (40-136); CREATININE SERUM 1.09 MG/DL (0.60-1.30); GFR ESTIMATED 65
[2020-11-16 22:58] LABS: BUN/CREATININE RATIO 17
[2020-11-16 23:00] LABS: ALANINE AMINOTRANSFERASE < 6 U/L (0-55); MAGNESIUM 2.4 MG/DL (1.6-2.4)
--- NOTE | 2020-11-16 23:19 | ED Chest Pain ---
General Chief Complaint: Oral/Throat Problems Stated Complaint: CHEST PAIN Nursing Triage Note: Pt arrival to ER via EMS from [facility] with complaint of throat burning. Pt states that about 2129 when taking night time medication he felt as if one got lodge in his throat. Pt states that he was given a cup of milk which helped. Pt states that he was told he needed to go to ER because he as having chest pain. Pt denies chest pain, but states has a burning in throat. Source: patient, EMS, old records Exam Limitations: no limitations History of Present Illness Date Seen by Provider: Nov 16, 2020 Time Seen by Provider: 22:18 Initial Comments This 80-year-old gentleman presents to the emergency room via EMS from [facility] as with complaint of chest burning. He reports this started about 1 hour ago when he took his medications. He felt like he got choked up on his medications and they did not go down properly. This improved some after he drank some milk. Review of chart reveals he had a negative stress test about a year ago. He has some cough with production of phlegm after choking on his pills. On the stress test a year ago there was no evidence of ischemia and ejection fraction was 57%. Patient does note some wheezing associated with his COPD. Allergies and Home Medications Allergies Coded Allergies: No Known Drug Allergies (Unverified , 10/20/17) Patient Home Medication List Home Medication List Reviewed: Yes Apixaban (Eliquis) 5 Mg Tablet, 5 MG PO BID Prescribed by: HOWARD AVENDAÑO on 11/17/20 0204 Aspirin (Aspir-Low) 81 Mg Tablet.dr, 81 MG PO HS, (Reported) Entered as Reported by: LIBIA PAYTON on 01/04/18 1240 Buspirone HCl (Buspirone HCl) 15 Mg Tablet, 15 MG PO BID, (Reported) Entered as Reported by: LIBIA PAYTON on 01/04/18 1225 Carvedilol (Carvedilol) 6.25 Mg Tablet, 6.25 MG PO BID Prescribed by: BONNIE CHAU on 01/07/18 0849 Diazepam (Diazepam) 5 Mg Tablet, 5 MG PO BID, (Reported) Entered as Reported by: LIBIA PAYTON on 01/04/18 1225 Diazepam (Diazepam) 5 Mg Tablet, 2.5 MG PO BID PRN for MUSCLE SPASMS Prescribed by: BONNIE CHAU on 01/07/18 0849 Fentanyl (Fentanyl Patch 25 MCG) 1 Each Patch.td72, 25 MCG TD Q72H Prescribed by: BONNIE CHAU on 01/07/18 0849 Gabapentin (Gabapentin) 100 Mg Capsule, 100 MG PO HS, (Reported) Entered as Reported by: LIBIA PAYTON on 01/04/18 1225 Gabapentin (Gabapentin) 100 Mg Capsule, 100 MG PO Q8H Prescribed by: BONNIE CHAU on 01/07/18 0849 Hydrocodone Bit/Acetaminophen (HYDROcodone/APAP 10/325 TABLET) 1 Each Tablet, 1 EA PO Q4H PRN for PAIN-MODERATE Prescribed by: BONNIE CHAU on 01/07/18 0849 Ibuprofen (Ibuprofen) 600 Mg Tablet, 600 MG PO TID, (Reported) Entered as Reported by: LIBIA PAYTON on 01/04/18 1225 [place]-3/Dha/Epa/Fish Oil (Fish Oil 1,000 mg Softgel) 1 Each Capsule, 1 EACH PO HS, (Reported) Entered as Reported by: LIBIA PAYTON on 01/04/18 1240 Ropinirole HCl (Ropinirole HCl) 0.5 Mg Tablet, 0.5 MG PO TID Prescribed by: BONNIE CHAU on 01/08/18 0927 Sennosides/Docusate Sodium (Senna-Time S Tablet) 1 Each Tablet, 1 EA PO BID Prescribed by: BONNIE CHAU on 01/07/18 0849 Review of Systems Review of Systems Constitutional: no symptoms reported EENTM: No Symptoms Reported Respiratory: See HPI Cardiovascular: See HPI Gastrointestinal: See HPI Genitourinary: No Symptoms Reported Musculoskeletal: no symptoms reported Skin: no symptoms reported Psychiatric/Neurological: No Symptoms Reported Endocrine: No Symptoms Reported Hematologic/Lymphatic: No Symptoms Reported Past Eaxxrvz-Ldslhd-Tdjhyx Hx Patient Social History Tobacco Use?: No Use of E-Cig and/or Vaping dev: No Substance use?: No Alcohol Use?: Yes Alcohol type: Hard Liquor Alcohol Frequency: Rarely Pt feels they are or have been: No Immunizations Up To Date Influenza Vaccine Up-to-Date: No; Not Current Second COVID19 Vaccination Anam: 03/24 COVID19 Vaccine [place]: [employer] Seasonal Allergies Seasonal Allergies: No Past Medical History Surgeries: Yes Orthopedic, Prostatectomy Respiratory: No Cardiac: Yes Hypertension Neurological: Yes Parkinson's Disease HIV/AIDS: No Genitourinary: Yes Prostate Problems Gastrointestinal: No Musculoskeletal: No Endocrine: No HEENT: No Cancer: Yes Prostate Psychosocial: No Integumentary: No Blood Disorders: No Adverse Reaction/Blood Tranf: No Family Medical History Patient reports no known family medical history. Physical Exam Vital Signs Vital Signs - First Documented 11/16/20 22:18 Temp 36.4 Pulse 107 Resp 20 B/P (MAP) 139/83 (101) Pulse Ox 98 O2 Delivery Room Air Capillary Refill : Less Than 3 Seconds Height, Weight, BMI Height: 5'7.00" Weight: 170lbs. 0.0oz. 77.390842pu; 33.00 BMI Method:Estimated General Appearance: No Apparent Distress, WD/WN HEENT: PERRL/EOMI, Normal ENT Inspection Neck: Normal Inspection Respiratory: No Accessory Muscle Use, No Respiratory Distress, Wheezing Cardiovascular: No Edema, No Murmur, Irregularly Irregular Gastrointestinal: Normal Bowel Sounds, Non Tender, Soft Extremity: Non Tender, Pedal Edema Neurologic/Psychiatric: Alert, Oriented x3, No Motor/Sensory Deficits, Normal Mood/Affect, coat finisher II-XII Norm as Tested Skin: Normal Color, Warm/Dry Progress/Results/Core Measures Results/Orders Lab Results Laboratory Tests Test 11/16/20 22:29 11/17/20 01:23 Range/Units White Blood Count 4.8 4.3-11.0 10^3/uL Red Blood Count 4.53 4.30-5.52 10^6/uL Hemoglobin 13.9 13.3-17.7 g/dL Hematocrit 40 40-54 % Mean Corpuscular Volume 89 80-99 fL Mean Corpuscular Hemoglobin 31 25-34 pg Mean Corpuscular Hemoglobin Concent 35 32-36 g/dL Red Cell Distribution Width 13.6 10.0-14.5 % Platelet Count 164 130-400 10^3/uL Mean Platelet Volume 8.4 L 9.0-12.2 fL Immature Granulocyte % (Auto) 0 % Neutrophils (%) (Auto) 49 42-75 % Lymphocytes (%) (Auto) 35 12-44 % Monocytes (%) (Auto) 11 0-12 % Eosinophils (%) (Auto) 4 0-10 % Basophils (%) (Auto) 1 0-10 % Neutrophils # (Auto) 2.4 1.8-7.8 10^3/uL Lymphocytes # (Auto) 1.7 1.0-4.0 10^3/uL Monocytes # (Auto) 0.5 0.0-1.0 10^3/uL Eosinophils # (Auto) 0.2 0.0-0.3 10^3/uL Basophils # (Auto) 0.0 0.0-0.1 10^3/uL Immature Granulocyte # (Auto) 0.0 0.0-0.1 10^3/uL Prothrombin Time 13.3 12.2-14.7 SEC INR Comment 1.0 0.8-1.4 Activated Partial Thromboplast Time 37 H 24-35 SEC Sodium Level 137 135-145 MMOL/L Potassium Level 3.4 L 3.6-5.0 MMOL/L Chloride Level 100 98-107 MMOL/L Carbon Dioxide Level 27 21-32 MMOL/L Anion Gap 10 5-14 MMOL/L Blood Urea Nitrogen 19 H 7-18 MG/DL Creatinine 1.09 0.60-1.30 MG/DL Estimat Glomerular Filtration Rate 65 BUN/Creatinine Ratio 17 Glucose Level 111 H 70-105 MG/DL Calcium Level 9.2 8.5-10.1 MG/DL Corrected Calcium 9.0 8.5-10.1 MG/DL Magnesium Level 2.4 1.6-2.4 MG/DL Total Bilirubin 0.9 0.1-1.0 MG/DL Aspartate Amino Transf (AST/SGOT) 13 5-34 U/L Alanine Aminotransferase (ALT/SGPT) < 6 0-55 U/L Alkaline Phosphatase 45 40-136 U/L Myoglobin 72.1 10.0-92.0 NG/ML Troponin I < 0.028 < 0.028 <0.028 NG/ML C-Reactive Protein High Sensitivity 0.42 0.00-0.50 MG/DL B-Type Natriuretic Peptide 276.9 H <100.0 PG/ML Total Protein 7.5 6.4-8.2 GM/DL Albumin 4.3 3.2-4.5 GM/DL TSH [facility] Testing 3.44 0.35-4.94 UIU/ML My Orders Orders - HOWARD NELSON MD Cbc With Automated Diff (11/16/20:) Magnesium (11/16/20:) Chest 1 View, Ap/Pa Only (11/16/20:) Ekg Tracing (11/16/20) Comprehensive Metabolic Panel (11/16/20) Myoglobin Serum (11/16/20) Protime With Inr (11/16/20) Partial Thromboplastin Time (11/16/20:) O2 (11/16/20:) Monitor-Rhythm Ecg Trace Only (11/16/20) Ed Iv/Invasive Line Start (11/16/20:) Troponin I (11/16/20:) Hs C Reactive Protein (11/16/20) BNP (11/16/20:34) Thyroid Analyzer (11/16/20:34) Troponin I (11/17/20 01:20) Albuterol/Ipra Inhalation Soln (Duoneb I (11/17/20 00:30) Svn Small Volume Nebulizer (11/17/20 00:20) Apixaban Tablet (Eliquis Tablet) (11/17/20 02:15) Medications Given in ED Current Medications Medications Dose Ordered Sig/Heaven Route Start Time Stop Time Status Last Admin Dose Admin Albuterol/ Ipratropium 3 ml ONCE ONCE INH 11/17/20 00:30 11/17/20 00:31 DC 11/17/20 00:41 3 ML Apixaban 5 mg ONCE ONCE PO 11/17/20 02:15 11/17/20 02:17 DC 11/17/20 02:10 5 MG Vital Signs/I&O 11/16/20 11/16/20 11/17/20 22:18 22:20 02:41 Temp 36.4 Pulse 107 81 Resp 20 18 B/P (MAP) 139/83 (101) 114/88 Pulse Ox 98 98 99 O2 Delivery Room Air Room Air Room Air Blood Pressure Mean: 101 Progress Progress Note : Time: 01:51 Progress Note Work-up has been relatively unremarkable. 4-hour troponin was obtained and was negative. Patient was able to drink water without difficulty. The burning sensation and breathing have improved after drinking water and receiving a DuoNeb treatment. It appears patient likely did get choked on his medications and this also caused a COPD exacerbation. New onset atrial fibrillation was noted on EKG. Patient is on carvedilol and does not appear to need any additional rate limiting medication at this time. We will start him on Eliquis for stroke prevention. He does not appear to have any contraindications to Eliquis therapy at this time. Initial ECG Impression Date: Nov 16, 2020 Initial ECG Impression Time: 22:20 Initial ECG Rate: 103 Initial ECG Rhythm: A Fib/Flutter Initial ECG Impression: Atrial Fibrillation Comment Atrial fibrillation with no ST elevation or depression. No abnormal intervals or axis deviation. Rate controlled. Diagnostic Imaging Diagonstic Imaging: Xray Plain Films/CT/US/NM/MRI: chest Comments Chest x-ray reviewed by me and compared with prior. No acute changes appreciated. Departure Impression Primary Impression: Atypical chest pain Additional Impressions: COPD exacerbation New onset atrial fibrillation Disposition: HOME, SELF-CARE Condition: Improved Departure-Patient Inst. Decision time for Depature: 02:03 Referrals: BONNIE CHAU MD (PCP/Family) Primary Care Physician Patient Instructions: Atrial Fibrillation, Going Home on Blood Thinners Add. Discharge Instructions: Your throat and chest symptoms seem to have been caused by a choking episode with your medications. The symptoms should improve rapidly. If not, please notify your primary care provider or return to the emergency room. You had an incidental finding of atrial fibrillation on your EKG during your ER visit. Atrial fibrillation increases risk for stroke which can be improved with use of blood thinning medications such as Eliquis. Please start this medication and continue until you are able to follow-up with Dr. Moctezuma to discuss further. Call with questions or concerns. Follow-up with Dr. Rhianna Chau as soon as possible. Return to the ER if you have worsening symptoms. All discharge instructions reviewed with patient and/or family. Voiced understan ding. Scripts Apixaban (Eliquis) 5 Mg Tablet 5 MG PO BID, #60 TAB Prov: HOWARD NELSON MD 11/17/20 Copy Copies To 1: BONNIE CHAU MD Copies To 2: LEON MOCTEZUMA MD, JOSHUA T MD Nov 16, 2020 23:19
--- NOTE | 2020-11-16 23:37 | Diagnostic Imaging Report ---
EXAMINATION: Chest 1 view HISTORY: Chest pain. COMPARISON: 01/14/2018. FINDINGS: The lung volumes are normal. No focal consolidation is seen. No large pleural effusion or pneumothorax is seen. The cardiomediastinal silhouette is normal in size and contour. No acute osseous abnormality is seen. IMPRESSION: 1. No acute pleuroparenchymal process. Dictated by: Dictated on workstation # [id number]
[2020-11-17] MEDS ORDERED: RT-ALBUTEROL/IPRATROPIUM 3 ML (DUONEB) VIAL INH ONE (00:30)
[2020-11-17] MEDS ORDERED: APIX5TAB PO (02:04)
[2020-11-17] MEDS ORDERED: APIXABAN 5 MG (ELIQUIS) TABLET PO ONE (02:15)
[2020-11-17 02:41] VITALS: BP 114/88
== END 2020-11-17 02:04 | disposition home or self-care (01) ==
LOC: EDUNIT# 22:17 → ER 22:18
DX: J44.1 Chronic obstructive pulmonary disease with (acute) exacerbation (principal); I48.91 Unspecified atrial fibrillation; I10 Essential (primary) hypertension; G20 Parkinson's disease; Z79.82 Long term (current) use of aspirin
CPT/HCPCS: 36415; 71045; 80053; 83735; 83874; 83880; 84443; 84484; 85025; 85610; 85730; 86141; 93005; 93041

== ENCOUNTER 2020-12-02 11:51 | Observation (INO) | payer MEDICARE ==
[~2020-12-02] VITALS: Ht 175 cm; Wt 97.0 kg
[~2020-12-02 11:51] MED LIST changes: +APIX5TAB PO
[2020-12-02] MEDS ORDERED: VANCOMYCIN INJECTION 2,000 MG in NS IV 500 ML 500 ML IV ONE (12:12)
[2020-12-02] MEDS ORDERED: NS IV 1000 ML 3,000 ML IV ONE (12:15)
[2020-12-02] MEDS ORDERED: CEFEPIME INJECTION 1,000 MG in WATER (STERILE) FOR INJECTION 10 ML IV ONE (12:15)
--- NOTE | 2020-12-02 12:23 | ED Syncope ---
General Chief Complaint: Neurological Problems Stated Complaint: WEAKNESS Nursing Triage Note: ARRIVED VIA EMS FROM HOME. EMS REPORTS PT HAD A HARD TIME WAKING HIM UP AFTER HIS NAP TODAY. EMS WAS CALLED AT 1116. PT STATES HE AWOKE DIZZY. PT STATES HE WAS FINE PRIOR TO NAP AND LAYED DOWN 9-930AM. Source of Information: Patient Exam Limitations: No Limitations History of Present Illness Date Seen by Provider: Dec 02, 2020 Time Seen by Provider: 11:59 Initial Comments Patient to the ER by EMS from [place] is with chief complaint that he was difficult to wake up. He was walking around talking acting normal this morning and then he felt weak so he decided to lay down to take a nap. This was sometime around 9:00. He did eat breakfast. He is not diabetic and had a blood sugar of 91. EMS arrived and stated he had a blood pressure of systolic 90s and they were unable to obtain a blood pressure when they stood him up as he was unable to bear any weight. He is not having any lateralizing symptoms or history of stroke. He did recently get started on Eliquis for new onset of atrial fibrillation. 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 Patient's blood pressure has been soft for the past couple days and they have been holding his blood pressure medicine but it seemed okay this morning so they gave them to him. Patient has chronic pain in his neck status post surgery. He is on gabapentin, ibuprofen 600 mg 3 times daily. He also takes restless leg medicine. The patient's son was contacted and states that he just found out his was diagnosed with influenza B. They have been around him. They were also tested for Covid which was negative Allergies and Home Medications Allergies Coded Allergies: No Known Drug Allergies (Unverified , 10/20/17) Patient Home Medication List Home Medication List Reviewed: Yes Apixaban (Eliquis) 5 Mg Tablet, 5 MG PO BID Prescribed by: HOWARD AVENDAÑO on 11/17/20 0204 Aspirin (Aspir-Low) 81 Mg Tablet., 81 MG PO HS, (Reported) Entered as Reported by: LIBIA PAYTON on 01/04/18 1240 Buspirone HCl (Buspirone HCl) 15 Mg Tablet, 15 MG PO BID, (Reported) Entered as Reported by: LIBIA PAYTON on 01/04/18 1225 Carvedilol (Carvedilol) 6.25 Mg Tablet, 6.25 MG PO BID Prescribed by: BONNIE CHAU on 01/07/18 0849 Diazepam (Diazepam) 5 Mg Tablet, 5 MG PO BID, (Reported) Entered as Reported by: LIBIA PAYTON on 01/04/18 1225 Diazepam (Diazepam) 5 Mg Tablet, 2.5 MG PO BID PRN for MUSCLE SPASMS Prescribed by: BONNIE CHAU on 01/07/18 0849 Fentanyl (Fentanyl Patch 25 MCG) 1 Each Patch.td72, 25 MCG TD Q72H Prescribed by: BONNIE CHAU on 01/07/18 0849 Gabapentin (Gabapentin) 100 Mg Capsule, 100 MG PO HS, (Reported) Entered as Reported by: LIBIA PAYTON on 01/04/18 1225 Gabapentin (Gabapentin) 100 Mg Capsule, 100 MG PO Q8H Prescribed by: BONNIE CHAU on 01/07/18 0849 Hydrocodone Bit/Acetaminophen (HYDROcodone/APAP 10/325 TABLET) 1 Each Tablet, 1 EA PO Q4H PRN for PAIN-MODERATE Prescribed by: BONNIE CHAU on 01/07/18 0849 Ibuprofen (Ibuprofen) 600 Mg Tablet, 600 MG PO TID, (Reported) Entered as Reported by: LIBIA PAYTON on 01/04/18 1225 [place]-3/Dha/Epa/Fish Oil (Fish Oil 1,000 mg Softgel) 1 Each Capsule, 1 EACH PO HS, (Reported) Entered as Reported by: LIBIA PAYTON on 01/04/18 1240 Ropinirole HCl (Ropinirole HCl) 0.5 Mg Tablet, 0.5 MG PO TID Prescribed by: BONNIE CHAU on 01/08/18 0927 Sennosides/Docusate Sodium (Senna-Time S Tablet) 1 Each Tablet, 1 EA PO BID Prescribed by: BONNIE CHAU on 01/07/18 0849 Review of Systems Constitutional: No chills, No diaphoresis EENTM: No ear discharge, No ear pain Respiratory: No cough, No short of breath Cardiovascular: No chest pain, No edema Gastrointestinal: No abdominal pain, No nausea, No vomiting Genitourinary: No discharge, No dysuria Musculoskeletal: No back pain, No joint pain Skin: No pruritus, No rash Psychiatric/Neurological: Denies Headache, Denies Numbness All Other Systems Reviewed Negative Unless Noted: No Past Eeecygn-Zmegpd-Jfmfhl Hx Patient Social History Tobacco Use?: No Smoking Status: Never a Smoker Use of E-Cig and/or Vaping dev: No Substance use?: No Alcohol Use?: No Immunizations Up To Date Second COVID19 Vaccination Anam: 03/24 COVID19 Vaccine Sign Language Interpreter: MODERNA Seasonal Allergies Seasonal Allergies: No Past Medical History Surgeries: Yes Orthopedic, Prostatectomy Respiratory: No Cardiac: Yes Hypertension Neurological: Yes Parkinson's Disease HIV/AIDS: No Genitourinary: Yes Prostate Problems Gastrointestinal: No Musculoskeletal: No Endocrine: No HEENT: No Cancer: Yes Prostate Psychosocial: No Integumentary: No Blood Disorders: No Adverse Reaction/Blood Tranf: No Family Medical History Patient reports no known family medical history. Physical Exam Vital Signs Vital Signs - First Documented 12/02/20 11:51 Pulse 76 Resp 16 B/P (MAP) 124/83 (97) Pulse Ox 98 O2 Delivery Room Air Capillary Refill : Less Than 3 Seconds Height, Weight, BMI Height: 5'7.00" Weight: 170lbs. 0.0oz. 77.260281bs; 31.00 BMI Method:Estimated General Appearance: WD/WN, Moderate Distress HEENT: PERRL/EOMI (4 mm bilateral reactive symmetric. Negative for raccoon e yes.), TMs Normal (Negative hemotympanum or curry sign atraumatic head); No Pharynx Normal (Mildly dry oral mucosa), No Moist Mucous Membranes Neck: Full Range of Motion, Normal Inspection, Supple Cardiovascular: Regular Rate, Rhythm, No Edema, Normal Peripheral Pulses Respiratory: Lungs Clear, Normal Breath Sounds, No Accessory Muscle Use, No Respiratory Distress Gastrointestinal: Normal Bowel Sounds, Non Tender, Soft Neurologic/Psychiatric: Alert, Oriented x3, No Motor/Sensory Deficits, Normal Mood/Affect, multimedia instructional designer II-XII Norm as Tested Cranial Nerves: Normal Hearing, Normal Speech, PERRL Coordination/Gait: Normal Finger to Nose Motor/Sensory: No Motor Deficit, No Sensory Deficit, No Pronator Drift Skin: Normal Color, Warm/Dry Focused Exam Lactate Level 12/02/20 13:10: Lactic Acid Level 1.19 Lactic Acid Level Laboratory Tests Test 12/02/20 13:10 Lactic Acid Level 1.19 MMOL/L (0.50-2.00) Progress/Results/Core Measures Results/Orders Lab Results Laboratory Tests Test 12/02/20 12:19 12/02/20 13:10 12/02/20 13:37 Range/Units White Blood Count 4.7 4.3-11.0 10^3/uL Red Blood Count 4.23 L 4.30-5.52 10^6/uL Hemoglobin 12.7 L 13.3-17.7 g/dL Hematocrit 37 L 40-54 % Mean Corpuscular Volume 88 80-99 fL Mean Corpuscular Hemoglobin 30 25-34 pg Mean Corpuscular Hemoglobin Concent 34 32-36 g/dL Red Cell Distribution Width 13.4 10.0-14.5 % Platelet Count 177 130-400 10^3/uL Mean Platelet Volume 8.8 L 9.0-12.2 fL Immature Granulocyte % (Auto) 0 % Neutrophils (%) (Auto) 50 42-75 % Lymphocytes (%) (Auto) 32 12-44 % Monocytes (%) (Auto) 12 0-12 % Eosinophils (%) (Auto) 4 0-10 % Basophils (%) (Auto) 1 0-10 % Neutrophils # (Auto) 2.4 1.8-7.8 10^3/uL Lymphocytes # (Auto) 1.5 1.0-4.0 10^3/uL Monocytes # (Auto) 0.6 0.0-1.0 10^3/uL Eosinophils # (Auto) 0.2 0.0-0.3 10^3/uL Basophils # (Auto) 0.1 0.0-0.1 10^3/uL Immature Granulocyte # (Auto) 0.0 0.0-0.1 10^3/uL Prothrombin Time 17.2 H 12.2-14.7 SEC INR Comment 1.4 0.8-1.4 Activated Partial Thromboplast Time 45 H 24-35 SEC Sodium Level 134 L 135-145 MMOL/L Potassium Level 3.2 L 3.6-5.0 MMOL/L Chloride Level 97 L 98-107 MMOL/L Carbon Dioxide Level 27 21-32 MMOL/L Anion Gap 10 5-14 MMOL/L Blood Urea Nitrogen 19 H 7-18 MG/DL Creatinine 1.28 0.60-1.30 MG/DL Estimat Glomerular Filtration Rate 54 BUN/Creatinine Ratio 15 Glucose Level 91 70-105 MG/DL Calcium Level 8.9 8.5-10.1 MG/DL Corrected Calcium 9.0 8.5-10.1 MG/DL Total Bilirubin 1.0 0.1-1.0 MG/DL Aspartate Amino Transf (AST/SGOT) 11 5-34 U/L Alanine Aminotransferase (ALT/SGPT) 17 0-55 U/L Alkaline Phosphatase 36 L 40-136 U/L Troponin I < 0.028 <0.028 NG/ML B-Type Natriuretic Peptide 221.1 H <100.0 PG/ML Total Protein 6.6 6.4-8.2 GM/DL Albumin 3.9 3.2-4.5 GM/DL Lactic Acid Level 1.19 0.50-2.00 MMOL/L Influenza Type A (RT-PCR) Not Detected Not Detecte Influenza Type B (RT-PCR) Not Detected Not Detecte SARS-CoV-2 RNA (RT-PCR) Not Detected Not Detecte My Orders Orders - DEVI ARITA Cbc With Automated Diff (12/02/20 12:12) Comprehensive Metabolic Panel (12/02/20 12:12) Blood Culture (12/02/20 12:12) Sputum Culture (12/02/20 12:12) Urinalysis (12/02/20 12:12) Urine Culture (12/02/20 12:12) Protime With Inr (12/02/20 12:12) Partial Thromboplastin Time (12/02/20 12:12) Chest 1 View, Ap/Pa Only (12/02/20 12:12) Ed Iv/Invasive Line Start (12/02/20 12:12) Ed Iv/Invasive Line Start (12/02/20 12:12) Ekg Tracing (12/02/20 12:12) Troponin I (12/02/20 12:12) Vital Signs Adult Sepsis Patie Q15M (12/02/20 12:12) O2 (12/02/20 12:12) Remove Rings In Anticipation O (12/02/20 12:12) Lactic Acid Analyzer (12/02/20 12:12) Ns Iv 1000 Ml (Sodium Chloride 0.9%) (12/02/20 12:15) Cefepime Injection (Maxipime Injection) (12/02/20 12:15) Vancomycin Injection (Vancomycin Injecti (12/02/20 12:12) BNP (12/02/20 12:24) Ct Head Wo (12/02/20 13:27) Covid 19 Inhouse Test (12/02/20 13:34) Influenza A And B By Pcr (12/02/20 13:34) Ed Iv/Invasive Line Start (12/02/20 14:15) Ns Iv 1000 Ml (Sodium Chloride 0.9%) (12/02/20 14:15) Hydrocodone/Apap 5/325 Tablet (Lortab 5 (12/02/20 15:00) Medications Given in ED Current Medications Medications Dose Ordered Sig/Heaven Route Start Time Stop Time Status Last Admin Dose Admin Cefepime HCl 1000 mg/Sterile Water 10 ml @ 200 mls/hr ONCE ONCE IV 12/02/20 12:15 12/02/20 12:17 DC 12/02/20 14:13 200 MLS/HR Vancomycin HCl 2000 mg/Sodium Chloride 500 ml @ 260 mls/hr 1212 ONCE IV 12/02/20 12:12 12/02/20 14:07 DC 12/02/20 14:13 260 MLS/HR Vital Signs/I&O 12/02/20 12/02/20 11:51 13:22 Pulse 76 62 89 75 Resp 16 B/P (MAP) 124/83 (97) 103/65 (78) 107/81 (90) 106/63 (77) Pulse Ox 98 O2 Delivery Room Air Blood Pressure Mean: 97 Progress Progress Note #1: Time: 12:21 Progress Note Generalized weakness and hypotension. Suspect he may have underlying infection or dehydration which was worsened by taking his blood pressure medicines this morning. Starting a septic work-up although he is not having any fever or tachycardia. He is on Coreg which would mask a tachycardia. We will give him up to 3 L of fluid rechecking his blood pressure throughout. Looking for evidence of infection. Looking for evidence of heart failure. We will also get a CT of his head since he recently started Eliquis to look for spontaneous bleed. His neck pain seems to be chronic. Progress Note #2: Time: 14:33 Progress Note Patient is going to get a CT of the head. He and his son are both agreeable with staying overnight observation for rehydration. He is drinking oral fluids but has not produced any urine yet. Blood cultures were obtained. Prophylactic antibiotics for potential sepsis are given. His son relates that he has a hard time drinking enough fluids because he does not get up and get something to drink and nobody brings him anything. The son gives the history that the patient is always dealing with borderline dehydration. This plus the addition of his blood pressure medicines this morning could explain his presentation thus far. Initial ECG Impression Date: Dec 02, 2020 Initial ECG Impression Time: 12:01 Initial ECG Rate: 75 Initial ECG Rhythm: A Fib/Flutter Initial ECG Intervals: QT (635) Initial ECG Impression: Atrial Fibrillation Comment Atrial fibrillation with a rate around 75 to [address] bpm. No clinically relevant ST changes Diagnostic Imaging Diagonstic Imaging: Xray Plain Films/CT/US/NM/MRI: chest Comments [facility] [place], [place] NAME: KUSH PINON [facility] REC#: [id number] PT STATUS: REG ER : 1940 PHYSICIAN: DEVI ARITA MD ADMIT DATE: 12/02/20/ER Draft Date of Exam:12/02/20 CHEST 1 VIEW, AP/PA ONLY CLINICAL INDICATION: Patient had hard time waking up after his nap today. Patient has dizziness. EXAM: Portable chest x-ray, upright view. COMPARISONS: Chest x-ray dated 11/16/2020. FINDINGS: Lungs/pleura: Lungs are clear. There is no pneumothorax. There is no pleural effusion. Mediastinum: Unremarkable. Pulmonary vasculature: Unremarkable. Heart: Unremarkable. Bones/extrathoracic soft tissue: There are hypertrophic spurs involving the thoracic spine. IMPRESSION: There is no radiographic evidence of acute cardiopulmonary process. Dictated on workstation # [id number] Dict: 12/02/20 1252 Trans: 12/02/20 1255 [id number] Interpreted by: MARIPOSA BENDER MD Electronically signed by: Reviewed: Reviewed by Me Diagonstic Imaging: CT Plain Films/CT/US/NM/MRI: head Comments [facility] [place] [place] NAME: KUSH PINON [facility] REC#: [id number] PT STATUS: REG ER : 1940 PHYSICIAN: DEVI ARITA MD ADMIT DATE: 12/02/20/ER Draft Date of Exam:12/02/20 CT HEAD WO PROCEDURE: CT head without contrast. TECHNIQUE: Multiple contiguous axial images were obtained through the brain without the use of intravenous contrast. Auto Exposure Controls were utilized during the CT exam to meet ALARA standards for radiation dose reduction. INDICATION: Dizziness and somnolence. No prior studies are available for comparison. FINDINGS: Ventricles and sulci are appropriate for the patient's age. No sulcal effacement or midline shift is identified. No acute intra-axial or extra-axial hemorrhage is detected. Cisterns are patent. Visualized paranasal sinuses are clear. IMPRESSION: No acute intracranial process is detected. Dictated on workstation # [id number] Dict: 12/02/20 1445 Trans: 12/02/20 1447 [id number] Interpreted by: EFRAIN PERALES MD Electronically signed by: Reviewed: Reviewed by Me Departure Communication (Admissions) Time/Spoke to Admitting Phy: 14:50 Discussed the case with Dr. Chau and she agrees to observe the patient on IV fluids get a urinalysis and observe on the medical floor. Impression Primary Impression: Dehydration Additional Impression: Orthostatic hypotension due to Parkinson's disease Disposition: ADMITTED INPATIENT Condition: Stable Admissions Decision to Admit Reason: Admit from ER (General) Decision to Admit/Date: Dec 02, 2020 Time/Decision to Admit Time: 14:39 Departure-Patient Inst. Referrals: BONNIE CHAU MD (PCP/Family) Primary Care Physician DEVI ARITA Dec 02, 2020 12:23
[2020-12-02 12:38] LABS: BASOPHILS # (AUTO) 0.1 10^3/uL (0.0-0.1); BASOPHILS % (AUTO) 1 % (0-10); EOSINOPHILS # (AUTO) 0.2 10^3/uL (0.0-0.3); EOSINOPHILS % (AUTO) 4 % (0-10); HEMATOCRIT 37 % (40-54); HEMOGLOBIN 12.7 g/dL (13.3-17.7); LYMPHOCYTES # (AUTO) 1.5 10^3/uL (1.0-4.0); LYMPHOCYTES % (AUTO) 32 % (12-44); MEAN CORPUSCULAR HEMOGLOBIN 30 pg (25-34); MEAN CORPUSCULAR HGB CONC 34 g/dL (32-36); MEAN CORPUSCULAR VOLUME 88 fL (80-99); MEAN PLATELET VOLUME 8.8 fL (9.0-12.2); MONOCYTES # (AUTO) 0.6 10^3/uL (0.0-1.0); MONOCYTES % (AUTO) 12 % (0-12); NEUTROPHILS # (AUTO) 2.4 10^3/uL (1.8-7.8); NEUTROPHILS % (AUTO) 50 % (42-75); PLATELET COUNT 177 10^3/uL (130-400); WHITE BLOOD COUNT 4.7 10^3/uL (4.3-11.0)
[2020-12-02 12:46] LABS: ALBUMIN 3.9 GM/DL (3.2-4.5); CHLORIDE 97 MMOL/L (98-107); POTASSIUM 3.2 MMOL/L (3.6-5.0); SODIUM 134 MMOL/L (135-145)
[2020-12-02 12:47] LABS: CALCIUM 8.9 MG/DL (8.5-10.1); INR 1.4 (0.8-1.4); PROTHROMBIN TIME PATIENT 17.2 SEC (12.2-14.7)
[2020-12-02 12:48] LABS: GLUCOSE 91 MG/DL (70-105)
[2020-12-02 12:49] LABS: TOTAL PROTEIN 6.6 GM/DL (6.4-8.2)
[2020-12-02 12:50] LABS: CARBON DIOXIDE 27 MMOL/L (21-32)
[2020-12-02 12:52] LABS: ALKALINE PHOSPHATASE 36 U/L (40-136); CREATININE SERUM 1.28 MG/DL (0.60-1.30); GFR ESTIMATED 54
[2020-12-02 12:53] LABS: BUN/CREATININE RATIO 15
[2020-12-02 12:55] LABS: ALANINE AMINOTRANSFERASE 17 U/L (0-55)
--- NOTE | 2020-12-02 12:56 | Diagnostic Imaging Report ---
CLINICAL INDICATION: Patient had hard time waking up after his nap today. Patient has dizziness. EXAM: Portable chest x-ray, upright view. COMPARISONS: Chest x-ray dated 11/16/2020. FINDINGS: Lungs/pleura: Lungs are clear. There is no pneumothorax. There is no pleural effusion. Mediastinum: Unremarkable. Pulmonary vasculature: Unremarkable. Heart: Unremarkable. Bones/extrathoracic soft tissue: There are hypertrophic spurs involving the thoracic spine. IMPRESSION: There is no radiographic evidence of acute cardiopulmonary process. Dictated by: Dictated on workstation # [id number]
[2020-12-02 13:22] VITALS: BP_SYST 103; BP_SYST 106; BP_SYST 107; BP_DIAS 63; BP_DIAS 65; BP_DIAS 81
[2020-12-02] MEDS ORDERED: NS IV 1000 ML 1,000 ML IV SCH (14:15)
--- NOTE | 2020-12-02 14:48 | Diagnostic Imaging Report ---
PROCEDURE: CT head without contrast. TECHNIQUE: Multiple contiguous axial images were obtained through the brain without the use of intravenous contrast. Auto Exposure Controls were utilized during the CT exam to meet ALARA standards for radiation dose reduction. INDICATION: Dizziness and somnolence. No prior studies are available for comparison. FINDINGS: Ventricles and sulci are appropriate for the patient's age. No sulcal effacement or midline shift is identified. No acute intra-axial or extra-axial hemorrhage is detected. Cisterns are patent. Visualized paranasal sinuses are clear. IMPRESSION: No acute intracranial process is detected. Dictated by: Dictated on workstation # [id number]
[2020-12-02] MEDS ORDERED: HYDROcodone/APAP 5 MG/325 MG (LORTAB) TAB PO ONE (15:00)
[2020-12-02 15:25] LABS: BILIRUBIN,URINE NEGATIVE (NEGATIVE); CLARITY,URINE CLEAR; GLUCOSE, URINE (UA) NEGATIVE (NEGATIVE); KETONES,URINE NEGATIVE (NEGATIVE); LEUKOCYTE ESTERASE ,URINE NEGATIVE (NEGATIVE); NITRITE,URINE NEGATIVE (NEGATIVE); PROTEIN,URINE NEGATIVE (NEGATIVE)
[2020-12-02 15:27] LABS: BACTERIA,URINE NEGATIVE /HPF; COLOR,URINE YELLOW
[2020-12-02] MEDS ORDERED: ACETAMINOPHEN 325 MG TABLET PO PRN (16:00)
[2020-12-02] MEDS ORDERED: CATHETER FLUSH 10 ML SYR IV PRN (16:00)
[2020-12-02] MEDS ORDERED: ONDANSETRON 4 MG/2 ML (SDV) Z0FRAN IV PRN (16:00)
[2020-12-02] MEDS: LACTATED RINGERS 1,000 ML IV SCH ×3 (16:20→23:42)
[2020-12-02 19:13] VITALS: BP 114/72
[2020-12-02] MEDS: SINEMET 25/100 (CARBIDOPA/LEVODOPA) TAB PO SCH (20:27)
[2020-12-02] MEDS: GABAPENTIN 100 MG (NEURONTIN) CAP PO SCH (20:27)
[2020-12-02] MEDS: APIXABAN 5 MG (ELIQUIS) TABLET PO SCH (20:27)
[2020-12-02] MEDS: rOPINIRole 1 MG (REQUIP) TABLET PO SCH (20:27)
[2020-12-02] MEDS: HYDROcodone/APAP 5 MG/325 MG (LORTAB) TAB PO PRN (20:28)
[2020-12-02] MEDS ORDERED: CYCL5TAB PO (21:18)
[2020-12-02] MEDS ORDERED: CYCLOBENZAPRINE 10 MG (FLEXERIL) TAB PO SCH (21:30)
[2020-12-02 23:40] VITALS: BP 120/81
[2020-12-03] MEDS ORDERED: FEXO-46 PO (03:12)
[2020-12-03] MEDS ORDERED: HYDR25TA4 PO (03:17)
[2020-12-03] MEDS ORDERED: FURO20TA4 PO (03:17)
[2020-12-03] MEDS ORDERED: AMLO-250 PO ×2 (03:19→11:40)
[2020-12-03] MEDS ORDERED: LISI20TA26 PO (03:19)
[2020-12-03] MEDS: HYDROcodone/APAP 5 MG/325 MG (LORTAB) TAB PO PRN (03:33)
[2020-12-03 03:34] VITALS: BP 122/76
[2020-12-03] MEDS ORDERED: ASPI-1238 PO (03:36)
[2020-12-03] MEDS ORDERED: ROPI1TAB PO (03:37)
[2020-12-03] MEDS ORDERED: FAMO20TA5 PO (03:38)
[2020-12-03] MEDS ORDERED: CARB1TAB19 PO (03:39)
[2020-12-03] MEDS ORDERED: POLY17PO54 PO (03:47)
[2020-12-03] MEDS ORDERED: NEOM28.33 TP (03:55)
[2020-12-03] MEDS ORDERED: SENN-273 PO (03:57)
[2020-12-03] MEDS ORDERED: POTA10TA36 PO (03:59)
[2020-12-03] MEDS ORDERED: OMEG1CAP24 PO (04:04)
[2020-12-03] MEDS ORDERED: DICL20GE TP (04:08)
[2020-12-03] MEDS: LACTATED RINGERS 1,000 ML IV SCH (06:17)
[2020-12-03 06:41] LABS: BASOPHILS # (AUTO) 0.1 10^3/uL (0.0-0.1); BASOPHILS % (AUTO) 1 % (0-10); EOSINOPHILS # (AUTO) 0.2 10^3/uL (0.0-0.3); EOSINOPHILS % (AUTO) 4 % (0-10); HEMATOCRIT 37 % (40-54); HEMOGLOBIN 12.5 g/dL (13.3-17.7); LYMPHOCYTES # (AUTO) 1.1 10^3/uL (1.0-4.0); LYMPHOCYTES % (AUTO) 24 % (12-44); MEAN CORPUSCULAR HEMOGLOBIN 30 pg (25-34); MEAN CORPUSCULAR HGB CONC 34 g/dL (32-36); MEAN CORPUSCULAR VOLUME 89 fL (80-99); MEAN PLATELET VOLUME 8.6 fL (9.0-12.2); MONOCYTES # (AUTO) 0.6 10^3/uL (0.0-1.0); MONOCYTES % (AUTO) 13 % (0-12); NEUTROPHILS # (AUTO) 2.7 10^3/uL (1.8-7.8); NEUTROPHILS % (AUTO) 58 % (42-75); PLATELET COUNT 158 10^3/uL (130-400); WHITE BLOOD COUNT 4.7 10^3/uL (4.3-11.0)
[2020-12-03 06:53] LABS: POTASSIUM 3.6 MMOL/L (3.6-5.0)
[2020-12-03 06:54] LABS: CALCIUM 8.7 MG/DL (8.5-10.1)
[2020-12-03 06:59] LABS: CREATININE SERUM 0.94 MG/DL (0.60-1.30)
[2020-12-03 07:17] VITALS: BP 128/79
[2020-12-03] MEDS: GABAPENTIN 100 MG (NEURONTIN) CAP PO SCH ×2 (08:58→13:28)
[2020-12-03] MEDS: SINEMET 25/100 (CARBIDOPA/LEVODOPA) TAB PO SCH ×2 (08:58→13:28)
[2020-12-03] MEDS: APIXABAN 5 MG (ELIQUIS) TABLET PO SCH (08:59)
[2020-12-03] MEDS ORDERED: ASPIRIN 81 MG CHEW (CHILDREN'S ASA) PO SCH (09:00)
[2020-12-03] MEDS: rOPINIRole 1 MG (REQUIP) TABLET PO SCH (09:08)
--- NOTE | 2020-12-03 10:37 | Short Stay Summary ---
History of Present Illness History of Present Illness Reason for visit/HPI PT REPORTS THAT HE HAD BEEN HAVING SOME DIZZINESS, AND ACUTE WEAKNESS ONSET YESTERDAY. HE REPORTS THAT HIS NECK HAS BEEN HURTING AND HE THINKS HE MAY BE IN NEED OF BOTOX INJECTIONS AGAIN DUE TO THE SPASMS AND PAIN. HE DENIES ABDOMINAL PAIN, NAUSEA, CHEST PAIN, SHORTNESS OF BREATH. HE DOES NOTICE SOME PALPITATIONS. Date of Admission Dec 02, 2020 at 15:00 Date of Discharge 12/03/2020 Time Seen by Provider: 15:00 Attending Physician Bonnie Chau MD Admitting Physician Bonnie Chau MD Consult Allergies and Home Medications Allergies Coded Allergies: No Known Drug Allergies (Unverified , 10/20/17) Patient Home Medication List Home Medication List Reviewed: Yes Acetaminophen (Acetaminophen) 325 Mg Tablet, 650 MG PO Q6H PRN for PAIN-MILD (1- 4)/FEVER Prescribed by: BONNIE CHAU on 12/03/20 1050 Amlodipine Besylate (Amlodipine Besylate) 5 Mg Tablet, 5 MG PO BID, (Reported) Entered as Reported by: RAGHAVENDRA SHEN on 12/03/209 Last Action: Held Apixaban (Eliquis) 5 Mg Tablet, 5 MG PO BID Prescribed by: HOWARD AVENDAÑO on 11/17/20 0204 Last Action: Reviewed Aspirin (Aspirin EC) 81 Mg Tablet.dr, 81 MG PO HS, (Reported) Entered as Reported by: RAGHAVENDRA SHEN on 12/03/20 0336 Last Action: Reviewed Buspirone HCl (Buspirone HCl) 15 Mg Tablet, 15 MG PO BID, (Reported) Entered as Reported by: LIBIA PAYTON on 01/04/18 1225 Last Action: Continued Carbidopa/Levodopa (Carbidopa-Levodopa 25-100 Tab) 1 Each Tablet, 1 TAB PO TID, (Reported) Entered as Reported by: RAGHAVENDRA SHEN on 12/03/20338 Last Action: Continued Carvedilol (Carvedilol) 6.25 Mg Tablet, 6.25 MG PO BID Prescribed by: BONNIE CHAU on 01/07/18 0877 Last Action: Held Carvedilol (Carvedilol) 3.125 Mg Tablet, 3.125 MG PO BID Prescribed by: BONNIE CHAU on 12/03/20 1050 Cyclobenzaprine HCl (Cyclobenzaprine HCl) 5 Mg Tablet, 5 MG PO HS, (Reported) Entered as Reported by: RAGHAVENDRA SHEN on 12/02/202117 Last Action: Converted Diclofenac Sodium (Voltaren Arthritis Pain) 20 Gm Gel..gram., 1 GM TP Q6H PRN for PAIN-MODERATE (5-7), (Reported) Entered as Reported by: RAGHAVENDRA SHEN on 12/03/20 040 Last Action: Continued Famotidine (Famotidine) 20 Mg Tablet, 20 MG PO BID, (Reported) Entered as Reported by: RAGHAVENDRA SHEN on 12/03/20 0338 Last Action: Continued Fentanyl (Fentanyl Patch 25 MCG) 1 Each Patch.td72, 25 MCG TD Q72H Prescribed by: BONNIE CHAU on 01/07/18 0849 Last Action: Continued Fexofenadine HCl (Fexofenadine HCl) 180 Mg Tablet, 180 MG PO DAILY, (Reported) Entered as Reported by: RAGHAVENDRA SHEN on 12/03/20311 Last Action: Held Furosemide (Furosemide) 20 Mg Tablet, 20 MG PO DAILY, (Reported) Entered as Reported by: RAGHAVENDRA SHEN on 12/03/20316 Last Action: Reviewed Gabapentin (Gabapentin) 100 Mg Capsule, 100 MG PO Q8H Prescribed by: BONNIE CHAU on 01/07/18 0849 Last Action: Continued Hydrochlorothiazide (Hydrochlorothiazide) 25 Mg Tablet, 25 MG PO DAILY, (Reported) Entered as Reported by: RAGHAVENDRA SHEN on 12/03/20316 Last Action: Held Hydrocodone Bit/Acetaminophen (HYDROcodone/APAP 5 MG/325 MG TAB) 1 Tab Tab, 1 EA PO Q6H PRN for PAIN-SEVERE (7-10) Prescribed by: BONNIE CHAU on 12/03/20 1050 Ibuprofen (Ibuprofen) 600 Mg Tablet, 600 MG PO TID, (Reported) Entered as Reported by: LIBIA PAYTON on 01/04/18 1225 Last Action: Held Lisinopril (Lisinopril) 20 Mg Tablet, 20 MG PO BID, (Reported) Entered as Reported by: RAGHAVENDRA SHEN on 12/03/20318 Last Action: Held Neomycin Mcclellan/Bacitrac Zn/Poly (Neosporin Ointment) 28.3 Gm Oint...g., 1 APPLIC TP BID, (Reported) Entered as Reported by: RAGHAVENDRA SHEN on 12/03/20354 Last Action: Held [place]-3 Fatty Acids/Fish Oil ([place] 3 Fish Oil Softgel) 1 Each Capsule.dr, 1,400 MG PO TID, (Reported) Entered as Reported by: RAGHAVENDRA SHEN on 12/03/20403 Last Action: Held Polyethylene Glycol 3350 (Polyethylene Glycol 3350) 17 Gm Powd.pack, 17 GM PO HS, (Reported) Entered as Reported by: RAGHAVENDRA SHEN on 12/03/20346 Last Action: Held Potassium Chloride (Potassium Chloride) 10 Meq Tab.er.prt, 10 MEQ PO DAILY, (Reported) Entered as Reported by: RAGHAVENDRA SHEN on 12/03/20358 Last Action: Held Ropinirole HCl (Ropinirole HCl) 1 Mg Tablet, 1 MG PO TID, (Reported) Entered as Reported by: RAGHAVENDRA SHEN on 12/03/20336 Last Action: Continued Sennosides/Docusate Sodium (Senna-S 8.6-50 mg Tablet) 1 Each Tablet, 1 EACH PO BID, (Reported) Entered as Reported by: RAGHAVENDRA SHEN on 12/03/20356 Last Action: Reviewed Discontinued Medications Aspirin (Aspir-Low) 81 Mg Tablet.dr, 81 MG PO HS, (Reported) Discontinued Reason: Duplicate Order Entered as Reported by: LIBIA PAYTON on 01/04/18 1240 Last Action: Discontinued Diazepam (Diazepam) 5 Mg Tablet, 5 MG PO BID, (Reported) Discontinued Reason: No Longer Taking Entered as Reported by: LIBIA PAYTON on 01/04/18 1225 Last Action: Discontinued Diazepam (Diazepam) 5 Mg Tablet, 2.5 MG PO BID PRN for MUSCLE SPASMS Discontinued Reason: No Longer Taking Prescribed by: BONNIE CHAU on 01/07/18 3581 Last Action: Discontinued Gabapentin (Gabapentin) 100 Mg Capsule, 100 MG PO HS, (Reported) Discontinued Reason: No Longer Taking Entered as Reported by: LIBIA PAYTON on 11/3/18 1225 Last Action: Discontinued Hydrocodone Bit/Acetaminophen (HYDROcodone/APAP 10/325 TABLET) 1 Each Tablet, 1 EA PO Q4H PRN for PAIN-MODERATE Discontinued Reason: No Longer Taking Prescribed by: BONNIE CHAU on 01/07/1849 Last Action: Discontinued [place]-3/Dha/Epa/Fish Oil (Fish Oil 1,000 mg Softgel) 1 Each Capsule, 1 EACH PO HS, (Reported) Discontinued Reason: No Longer Taking Entered as Reported by: ILBIA PAYTON on 01/04/18 1240 Last Action: Discontinued Ropinirole HCl (Ropinirole HCl) 0.5 Mg Tablet, 0.5 MG PO TID Discontinued Reason: Duplicate Order Prescribed by: BONNIE CHAU on 01/08/18926 Last Action: Discontinued Sennosides/Docusate Sodium (Senna-Time S Tablet) 1 Each Tablet, 1 EA PO BID Discontinued Reason: Duplicate Order Prescribed by: BONNIE CHAU on 01/07/18848 Last Action: Discontinued Past Jgzheat-Tzyoxh-Livypm Hx Patient Social History Marrital Status: Number of Children: 2 Number of living children: 2 Living Status: LIVES WITH HIS AT [facility] Employed/Student: retired Alcohol Beverage of Choice: Other (OCCASIONAL ALCOHOL INTAKE) Smoking Status: Former Smoker Former Smoker, Quit: Mar 04, 1967 2nd Hand Smoke Exposure: No Recent Hopitalizations: Yes Social History LIVES WITH SPOUSE IN ASSISTED LIVING Have you traveled recently?: No Alcohol Use?: No Pt feels they are or have been: No Immunizations Up To Date Date of Influenza Vaccine: Dec 04, 2017 Seasonal Allergies Seasonal Allergies: No Surgeries Yes Orthopedic, Prostatectomy Respiratory No Cardiovascular Yes Hypertension Neurological Yes Parkinson's Disease Reproductive System Hx Reproductive Disorders: No Sexually Transmitted Disease: No HIV/AIDS: No Genitourinary Yes Prostate Problems Gastrointestinal No Musculoskeletal Yes Arthritis, Spasms Endocrine History of Endocrine Disorders: No HEENT History of HEENT Disorders: No Cancer Yes Prostate Psychosocial History of Psychiatric Problem: Yes Behavioral Health Disorders: Anxiety Integumentary History of Skin or Integumenta: No Blood Transfusions History of Blood Disorders: No Adverse Reaction to a Blood Tr: No Reviewed Nursing Assessment Reviewed/Agree w Nursing PMH: Yes Family Medical History Significant Family History: Heart Disease, Diabetes, Hypertension, Stroke Family Hx: Patient reports no known family medical history. Review of Systems Constitutional: No chills, No fever; malaise, weakness EENTM: No hoarseness, No throat pain Respiratory: No cough, No dyspnea on exertion; short of breath Cardiovascular: No chest pain; palpitations, syncope Gastrointestinal: No abdominal pain, No constipation, No diarrhea, No nausea, No vomiting Genitourinary: frequency Musculoskeletal: muscle stiffness, muscle weakness, neck pain Skin: no symptoms reported Psychiatric/Neurological: Anxiety; Denies Depressed; Weakness All Other Systems Reviewed Negative Unless Noted: Yes Physical Exam Vital Signs Vital Signs - First Documented 12/02/20 12/02/20 11:51 19:13 Temp 36.8 Pulse 76 Resp 16 B/P (MAP) 124/83 (97) Pulse Ox 98 O2 Delivery Room Air Capillary Refill : Less Than 3 Seconds Height, Weight, BMI Height: 5'7.00" Weight: 170lbs. 0.0oz. 77.501467gy; 31.67 BMI Method:Estimated General Appearance: No Apparent Distress, WD/WN HEENT: PERRL/EOMI Neck: Full Range of Motion, Non Tender, Supple Respiratory: Chest Non Tender, Lungs Clear, Normal Breath Sounds, No Accessory Muscle Use, No Respiratory Distress Cardiovascular: No Edema, No Murmur, Systolic Murmur, Irregularly Irregular Gastrointestinal: Normal Bowel Sounds, No Organomegaly, No Pulsatile Mass, Non Tender, Soft Rectal: Deferred Back: Normal Inspection, Other (MILD KYPOHSIS, COGWHEEL RIGIDITY, TIGHT NECK MUSCLES) Neurologic/Psychiatric: Alert, Oriented x3, Normal Mood/Affect, 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 Norm as Tested, Motor Weakness Skin: Normal Color, Warm/Dry Lymphatic: No Adenopathy Short Stay Diagnosis Discharge Diagnosis-Short Stay Admission Diagnosis: DEHYDRATION SYNCOPE ATRIAL FIBRILLATION ANXIETY CHRONIC NECK PAIN PARKINSON'S DISEASE Final Discharge Diagnosis: DEHYDRATION SYNCOPE ATRIAL FIBRILLATION ANXIETY CHRONIC NECK PAIN PARKINSON'S DISEASE Conclusion Labs Laboratory Tests 12/02/20 12:19: White Blood Count 4.7, Red Blood Count 4.23L, Hemoglobin 12.7L, Hematocrit 37L, Mean Corpuscular Volume 88, Mean Corpuscular Hemoglobin 30, Mean Corpuscular Hemoglobin Concent 34, Red Cell Distribution Width 13.4, Platelet Count 177, Mean Platelet Volume 8.8L, Immature Granulocyte % (Auto) 0, Neutrophils (%) (Auto) 50, Lymphocytes (%) (Auto) 32, Monocytes (%) (Auto) 12, Eosinophils (%) (Auto) 4, Basophils (%) (Auto) 1, Neutrophils # (Auto) 2.4, Lymphocytes # (Auto) 1.5, Monocytes # (Auto) 0.6, Eosinophils # (Auto) 0.2, Basophils # (Auto) 0.1, Immature Granulocyte # (Auto) 0.0, Prothrombin Time 17.2H, INR Comment 1.4, Activated Partial Thromboplast Time 45H, Sodium Level 134L, Potassium Level 3.2L , Chloride Level 97L, Carbon Dioxide Level 27, Anion Gap 10, Blood Urea Nitrogen 19H, Creatinine 1.28, Estimat Glomerular Filtration Rate 54, BUN/Creatinine Ratio 15, Glucose Level 91, Calcium Level 8.9, Corrected Calcium 9.0, Total Bilirubin 1.0, Aspartate Amino Transf (AST/SGOT) 11, Alanine Aminotransferase (ALT/SGPT) 17, Alkaline Phosphatase 36L, Troponin I < 0.028, B-Type Natriuretic Peptide 221.1H, Total Protein 6.6, Albumin 3.9 12/02/20 13:10: Lactic Acid Level 1.19 12/02/20 13:37: Influenza Type A (RT-PCR) Not Detected, Influenza Type B (RT-PCR) Not Detected, SARS-CoV-2 RNA (RT-PCR) Not Detected 12/02/20 15:05: Urine Color YELLOW, Urine Clarity CLEAR, Urine pH 6.0, Urine Specific [place] 1.015L, Urine Protein NEGATIVE, Urine Glucose (UA) NEGATIVE, Urine Ketones NEGATIVE, Urine Nitrite NEGATIVE, Urine Bilirubin NEGATIVE, Urine Urobilinogen 0.2, Urine Leukocyte Esterase NEGATIVE, Urine RBC (Auto) NEGATIVE, Urine RBC NONE, Urine WBC NONE, Urine Squamous Epithelial Cells NONE, Urine Crystals NONE, Urine Bacteria NEGATIVE, Urine Casts NONE, Urine Mucus NEGATIVE, Urine Culture Indicated NO 12/03/20 06:12: White Blood Count 4.7, Red Blood Count 4.11L, Hemoglobin 12.5L, Hematocrit 37L, Mean Corpuscular Volume 89, Mean Corpuscular Hemoglobin 30, Mean Corpuscular Hemoglobin Concent 34, Red Cell Distribution Width 13.6, Platelet Count 158, Mean Platelet Volume 8.6L, Immature Granulocyte % (Auto) 0, Neutrophils (%) (Auto) 58, Lymphocytes (%) (Auto) 24, Monocytes (%) (Auto) 13H, Eosinophils (%) (Auto) 4, Basophils (%) (Auto) 1, Neutrophils # (Auto) 2.7, Lymphocytes # (Auto) 1.1, Monocytes # (Auto) 0.6, Eosinophils # (Auto) 0.2, Basophils # (Auto) 0.1, Immature Granulocyte # (Auto) 0.0, Sodium Level 137, Potassium Level 3.6, Chloride Level 104, Carbon Dioxide Level 25, Anion Gap 8, Blood Urea Nitrogen 14, Creatinine 0.94, Estimat Glomerular Filtration Rate 77, BUN/Creatinine Ratio 15, Glucose Level 89, Calcium Level 8.7 Conclusion/Plan DEHYDRATION WITH SYNCOPE - SUSPECT COUPLED WITH DEHYDRATION, HIS MEDS FOR RATE CONTROL AND BLOOD PRESSURE CONTROL WERE TOO MUCH - WILL HOLD AMLODIPINE, AND LISINOPRIL, THE COREG DOSE IS DECREASED TO 3.125MG BID, MONITOR PRESSURES CLOSELY, STAFF TO CALL IF SBP GREATER THAN 160. ATRIAL FIBRILLATION - CONTINUE WITH ELIQUIS AND COREG ANXIETY - HOME MEDS RESUMED CHRONIC NECK PAIN - CONTINUE WITH FENTANYL AND PRN HYDROCODONE RX SENT TO PHARMACY - NEEDS APPT WITH DR. DAVALOS FOR NECK INJECTIONS PARKINSON'S DISEASE - RESUMED CARBIDOPA AND REQUIP. FOLLOW UP IN 2 WKS [facility] KEEP APPT WITH KRISTOFER FOR LOOP RECORDER NEXT WEEK. BONNIE CHAU MD Dec 03, 2020 10:37
[2020-12-03] MEDS ORDERED: TROLAMINE (ASPERCREME) 10% CR 90 GM TUBE TOP SCH (10:45)
[2020-12-03] MEDS ORDERED: DICLOFENAC 1% GEL 100 GM (VOLTAREN) TUBE TP PRN (10:45)
[2020-12-03] MEDS ORDERED: CARV3.122 PO (10:50)
[2020-12-03] MEDS ORDERED: ACET325T49 PO (10:50)
[2020-12-03] MEDS ORDERED: ACHD5005 PO (10:50)
[2020-12-03] MEDS ORDERED: GABAPENTIN 100 MG (NEURONTIN) CAP PO SCH (11:00)
[2020-12-03] MEDS ORDERED: fentaNYL PATCH 25 MCG (DURAGESIC) TD SCH (11:00)
--- NOTE | 2020-12-03 11:04 | Discharge Inst-Simple/Standard ---
Discharge Inst-Standard Reconcile Patient Problems Problems Reviewed?: Yes Discharge Medications New, Converted or Re-Newed RX: Transmitted to Pharmacy Patient Instructions/Follow Up Plan of Care/Instructions/FU: need to make appt with [facility] for a 2 wk follow up need to make pt an appt with Dr. Gaines for his neck pain - may need botox injections in his neck again keep appt with Dr. Moctezuma for procedure Activity as Tolerated: Yes Discharge Diet: Low Sodium Diet Health Concerns: parkinson's disease hypertension with orthostasis from parkinsons disease hyperlipidemia atrial fibrillation neck pain Return to The Hospital For: any recurrent dizziness, chest pain, shortness of breath or any lifethreatening illness or injury Lab results: Laboratory Tests Test 12/02/20 12:19 12/02/20 13:10 12/02/20 13:37 12/02/20 15:05 Range/Units White Blood Count 4.7 4.3-11.0 10^3/uL Red Blood Count 4.23 L 4.30-5.52 10^6/uL Hemoglobin 12.7 L 13.3-17.7 g/dL Hematocrit 37 L 40-54 % Mean Corpuscular Volume 88 80-99 fL Mean Corpuscular Hemoglobin 30 25-34 pg Mean Corpuscular Hemoglobin Concent 34 32-36 g/dL Red Cell Distribution Width 13.4 10.0-14.5 % Platelet Count 177 130-400 10^3/uL Mean Platelet Volume 8.8 L 9.0-12.2 fL Immature Granulocyte % (Auto) 0 % Neutrophils (%) (Auto) 50 42-75 % Lymphocytes (%) (Auto) 32 12-44 % Monocytes (%) (Auto) 12 0-12 % Eosinophils (%) (Auto) 4 0-10 % Basophils (%) (Auto) 1 0-10 % Neutrophils # (Auto) 2.4 1.8-7.8 10^3/uL Lymphocytes # (Auto) 1.5 1.0-4.0 10^3/uL Monocytes # (Auto) 0.6 0.0-1.0 10^3/uL Eosinophils # (Auto) 0.2 0.0-0.3 10^3/uL Basophils # (Auto) 0.1 0.0-0.1 10^3/uL Immature Granulocyte # (Auto) 0.0 0.0-0.1 10^3/uL Prothrombin Time 17.2 H 12.2-14.7 SEC INR Comment 1.4 0.8-1.4 Activated Partial Thromboplast Time 45 H 24-35 SEC Sodium Level 134 L 135-145 MMOL/L Potassium Level 3.2 L 3.6-5.0 MMOL/L Chloride Level 97 L 98-107 MMOL/L Carbon Dioxide Level 27 21-32 MMOL/L Anion Gap 10 5-14 MMOL/L Blood Urea Nitrogen 19 H 7-18 MG/DL Creatinine 1.28 0.60-1.30 MG/DL Estimat Glomerular Filtration Rate 54 BUN/Creatinine Ratio 15 Glucose Level 91 70-105 MG/DL Calcium Level 8.9 8.5-10.1 MG/DL Corrected Calcium 9.0 8.5-10.1 MG/DL Total Bilirubin 1.0 0.1-1.0 MG/DL Aspartate Amino Transf (AST/SGOT) 11 5-34 U/L Alanine Aminotransferase (ALT/SGPT) 17 0-55 U/L Alkaline Phosphatase 36 L 40-136 U/L Troponin I < 0.028 <0.028 NG/ML B-Type Natriuretic Peptide 221.1 H <100.0 PG/ML Total Protein 6.6 6.4-8.2 GM/DL Albumin 3.9 3.2-4.5 GM/DL Lactic Acid Level 1.19 0.50-2.00 MMOL/L Influenza Type A (RT-PCR) Not Detected Not Detecte Influenza Type B (RT-PCR) Not Detected Not Detecte SARS-CoV-2 RNA (RT-PCR) Not Detected Not Detecte Urine Color YELLOW Urine Clarity CLEAR Urine pH 6.0 5-9 Urine Specific [place] 1.015 L 1.016-1.022 Urine Protein NEGATIVE NEGATIVE Urine Glucose (UA) NEGATIVE NEGATIVE Urine Ketones NEGATIVE NEGATIVE Urine Nitrite NEGATIVE NEGATIVE Urine Bilirubin NEGATIVE NEGATIVE Urine Urobilinogen 0.2 < = 1.0 MG/DL Urine Leukocyte Esterase NEGATIVE NEGATIVE Urine RBC (Auto) NEGATIVE NEGATIVE Urine RBC NONE /HPF Urine WBC NONE /HPF Urine Squamous Epithelial Cells NONE /HPF Urine Crystals NONE /LPF Urine Bacteria NEGATIVE /HPF Urine Casts NONE /LPF Urine Mucus NEGATIVE /LPF Urine Culture Indicated NO Test 12/03/20 06:12 Range/Units White Blood Count 4.7 4.3-11.0 10^3/uL Red Blood Count 4.11 L 4.30-5.52 10^6/uL Hemoglobin 12.5 L 13.3-17.7 g/dL Hematocrit 37 L 40-54 % Mean Corpuscular Volume 89 80-99 fL Mean Corpuscular Hemoglobin 30 25-34 pg Mean Corpuscular Hemoglobin Concent 34 32-36 g/dL Red Cell Distribution Width 13.6 10.0-14.5 % Platelet Count 158 130-400 10^3/uL Mean Platelet Volume 8.6 L 9.0-12.2 fL Immature Granulocyte % (Auto) 0 % Neutrophils (%) (Auto) 58 42-75 % Lymphocytes (%) (Auto) 24 12-44 % Monocytes (%) (Auto) 13 H 0-12 % Eosinophils (%) (Auto) 4 0-10 % Basophils (%) (Auto) 1 0-10 % Neutrophils # (Auto) 2.7 1.8-7.8 10^3/uL Lymphocytes # (Auto) 1.1 1.0-4.0 10^3/uL Monocytes # (Auto) 0.6 0.0-1.0 10^3/uL Eosinophils # (Auto) 0.2 0.0-0.3 10^3/uL Basophils # (Auto) 0.1 0.0-0.1 10^3/uL Immature Granulocyte # (Auto) 0.0 0.0-0.1 10^3/uL Sodium Level 137 135-145 MMOL/L Potassium Level 3.6 3.6-5.0 MMOL/L Chloride Level 104 98-107 MMOL/L Carbon Dioxide Level 25 21-32 MMOL/L Anion Gap 8 5-14 MMOL/L Blood Urea Nitrogen 14 7-18 MG/DL Creatinine 0.94 0.60-1.30 MG/DL Estimat Glomerular Filtration Rate 77 BUN/Creatinine Ratio 15 Glucose Level 89 70-105 MG/DL Calcium Level 8.7 8.5-10.1 MG/DL My orders: Orders - BONNIE CARRION MD Admission Order(Inpt,Obs,Sdc) (12/02/20 15:36) Initiate Admission Nursing Pro .admission (12/02/20 15:36) Vital Signs: Per Unit Policy ( Q4HR (12/02/20 15:36) Rt Request For Service (12/02/20 15:36) Cbc With Automated Diff (12/03/20 05:00) Basic Metabolic Panel (12/03/20 05:00) Ua Culture If Indicated (12/02/20 16:21) Code/Resuscitation (12/02/20 15:45) Ambulate 08,12,20 (12/02/20 15:36) Sequential Compression Device .admit (12/02/20 15:45) Initiate Admission Nursing Pro .admission (12/02/20 15:45) Isolation Central Supply Req (12/02/20 15:45) Lactated Ringers (Lr 1000 Ml Iv Solution (12/02/20 16:00) Ondansetron Injection (Zofran Injectio (12/02/20 16:00) Acetaminophen Tablet/Caplet (Tylenol T (12/02/20 16:00) Ropinirole Tablet (Requip Tablet) (12/02/20 21:00) Gabapentin Capsule/Tablet (Neurontin Cap (12/02/20 21:00) Hydrocodone/Apap 5/325 Tablet (Lortab 5 (12/02/20 16:00) Apixaban Tablet (Eliquis Tablet) (12/02/20 21:00) Aspirin Chewable Tablet (Baby Aspirin Ch (12/03/20 09:00) Sodium Chloride Flush (Catheter Flush Sy (12/02/20 16:00) General/Regular (12/02/20 Dinner) Pharmacy Consult/Message (12/02/20 19:50) Carbidopa/Levodopa 25/100 (Sinemet 25/10 (12/02/20 21:00) Cyclobenzaprine Tablet (Flexeril Tablet) (12/02/20 21:30) Telemetry (12/02/20 21:24) Telemetry Nursing Assessment ( (12/02/20 21:24) Carvedilol Tablet (Coreg Tablet) (12/03/20 10:45) Trolamine 10% Cream (Aspercreme 10% Crea (12/03/20 10:45) Buspirone Tablet (Buspar Tablet) (12/03/20 21:00) Diclofenac 1% Gel (Voltaren 1% Gel) (12/03/20 10:45) Famotidine Tablet (Pepcid Tablet) (12/03/20 21:00) Fentanyl Patch (Duragesic Patch) (12/03/20 11:00) Ropinirole Tablet (Requip Tablet) (12/03/20 13:00) Pending Discharge Order (12/03/20 10:40) BONNIE CARRION MD Dec 03, 2020 11:03
[2020-12-03 11:52] VITALS: BP 136/74
[2020-12-03] MEDS ORDERED: SINEMET 25/100 (CARBIDOPA/LEVODOPA) TAB PO SCH (13:00)
[2020-12-03] MEDS ORDERED: rOPINIRole 1 MG (REQUIP) TABLET PO SCH (13:00)
[2020-12-03 15:08] VITALS: BP 136/74
[2020-12-03] MEDS ORDERED: busPIRone 15 MG (BUSPAR) TABLET PO SCH (21:00)
[2020-12-03] MEDS ORDERED: FAMOTIDINE 20 MG (PEPCID) TABLET PO SCH (21:00)
== END 2020-12-03 15:08 | disposition home or self-care (01) ==
LOC: ER 11:51 → EDUNIT# 12:02 → ER 12:04 → 4TH 15:00
PROVIDERS: ADMIT Family Medicine; ATTEND Family Medicine
DX: I95.1 Orthostatic hypotension (principal); G20 Parkinson's disease; E86.0 Dehydration; I48.91 Unspecified atrial fibrillation; I10 Essential (primary) hypertension; F41.9 Anxiety disorder, unspecified; G89.29 Other chronic pain; M54.2 Cervicalgia; Z79.01 Long term (current) use of anticoagulants; Z79.82 Long term (current) use of aspirin; Z79.899 Other long term (current) drug therapy; Z79.891 Long term (current) use of opiate analgesic; Z79.1 Long term (current) use of non-steroidal anti-inflammatories (NSAID); Z79.2 Long term (current) use of antibiotics
CPT/HCPCS: 36415; 70450; 71045; 80048; 80053; 81000; 83605; 83880; 84484; 85025; 85610; 85730; 87040; 87088; 87636; 93005; G0378

== ENCOUNTER → 2020-12-07 | Day surgery (SDC) | payer MEDICARE ==
[~2020-12-07] VITALS: Ht 175 cm; Wt 87.0 kg
[~2020-12-07] MED LIST changes: +ACET325T38 PO; +ACET325T49 PO; +ACHD5005 PO; +AMIO200T6 PO; +AMIODARONE FOR BOLUS 150 MG in D5W 100 ML IVPB 100 ML IV ONE; +AMLO-250 PO; +APIXABAN 5 MG (ELIQUIS) TABLET PO ONE; +ASPI-1238 PO; +CARB1TAB19 PO; +CARV3.122 PO; +CYCL5TAB PO; +DICL20GE TP; +FAMO20TA5 PO; +FEXO-46 PO; +FEXO180T84 PO; +FURO-125 PO; +FURO20TA4 PO; +IBUP-2473 PO; +LIDOCAINE 1% INJ 20 ML 20 ML VIAL INJ ONE; +LIDOCAINE 1% INJ 20 ML 20 ML VIAL ONE; +LIDOCAINE 2% VISCOUS 15 ML UDC ONE; +LIDOCAINE 2% VISCOUS 15 ML UDC PO ONE; +LISI20TA26 PO; +NEOM28.33 TP; +NS IV 1000 ML 1,000 ML IV SCH; +NS IV 1000 ML 1,000 ML ONE; +OMEG-9 PO; +OMEG1CAP24 PO; +POLY17PO54 PO; +POTA10TA36 PO; +ROPI1TAB PO; +SENN-273 PO; +proPOfol 200 MG/20 ML (DIPRIVAN) VIAL IV ONE
[2020-12-07 08:55] VITALS: BP 147/118
[2020-12-07 09:13] LABS: HEMATOCRIT 40 % (40-54); HEMOGLOBIN 13.9 g/dL (13.3-17.7); MEAN CORPUSCULAR HEMOGLOBIN 31 pg (25-34); MEAN CORPUSCULAR HGB CONC 34 g/dL (32-36); MEAN CORPUSCULAR VOLUME 90 fL (80-99); MEAN PLATELET VOLUME 8.7 fL (9.0-12.2); PLATELET COUNT 177 10^3/uL (130-400); WHITE BLOOD COUNT 4.7 10^3/uL (4.3-11.0)
[2020-12-07 09:26] LABS: INR 1.2 (0.8-1.4); PROTHROMBIN TIME PATIENT 15.4 SEC (12.2-14.7)
[2020-12-07 09:34] LABS: ALBUMIN 4.1 GM/DL (3.2-4.5); BILIRUBIN,TOTAL 1.2 MG/DL (0.1-1.0); CALCIUM 9.6 MG/DL (8.5-10.1); CREATININE SERUM 1.2 MG/DL (0.60-1.30); POTASSIUM 3.5 MMOL/L (3.6-5.0); TOTAL PROTEIN 7.5 GM/DL (6.4-8.2)
[2020-12-07 09:50] VITALS: BP 106/61
--- NOTE | 2020-12-07 10:00 | Diagnostic Imaging Report ---
INDICATION: Pre-transesophageal echo. TIME OF EXAM: 9:14 AM Correlation is made with prior chest 12/02/2020. The heart size is normal. The pulmonary vascularity is unremarkable. The lungs are clear. No infiltrate, effusion or pneumothorax is detected. Impression: No acute cardiopulmonary process is detected. Dictated by: Dictated on workstation # [id number]
[2020-12-07 10:05] VITALS: BP 119/102
[2020-12-07 10:20] VITALS: BP 141/85
--- NOTE | 2020-12-07 10:42 | Discharge Inst-Post CATH ---
Discharge Inst-CATH/EP Problems Reviewed?: Yes Post Cardiac Cath/EP D/C Inst Follow Up/Plan Appointment with Dr. Moctezuma's office in 1 to 2 weeks <b>CARDIAC CATH/EP PROCEDURE DISCHARGE INSTRUCTIONS</b> ACTIVITY * Go Home directly and rest. * Limit activity of the leg (or wrist if it was used) for 7 days including aer obics, swimming, jogging, bicycling, etc. * Restrict stair-climbing for 7 days if possible, if not, climb up with your non-cath leg, then bring together on the same step. * Avoid lifting, pushing, pulling or excessive movement of the affected extremi ty for 7 days. * Customary sexual activity may be resumed after 2 days-use caution not to use a position that strains or causes pain to the affected extremity. * No driving for 24 hours. * NO SMOKING. * Avoid straining for bowel movements for 7 days. * Gentle walking on level ground is allowed. * Returning to work will depend on the type of procedure and the results. Your doctor will discuss this with you. CALL YOUR DOCTOR FOR ANY OF THE FOLLOWING: *If bleeding from the puncture site occurs- Apply gentle pressure to site with clean cloth and call your doctor or EMS. * If a knot or lump forms under the skin, increases in size, or causes pain. * If bruising appears to be worsening or moving further down your leg instead of disappearing. * Temperature above 101 F. CARE OF YOUR GROIN INCISION; * Bruising or purple discoloration of the skin near the puncture site is common. * You may shower only, no bathtub bathing for 5 days. Be careful to avoid slipping as your leg may feel stiff. * If a closure device was used on your femoral artery, please see the attached guide regarding care of the device and your leg. * Leave dressing on FOR 24 hours. CARE OF YOUR WRIST INCISION; * Bruising or purple discoloration of the skin near the puncture site is common. * You may shower. * DO NOT submerge wrist. * Leave dressing on FOR 24 hours. LEON MOCTEZUMA MD Dec 07, 2020 10:42
--- NOTE | 2020-12-07 10:43 | Conscious Sedation/ASA ---
Conscious Sedation Pre-Proced Time 10:43 ASA Score 3 For ASA 3 and 4: Consider anesthesia and medical clearance. Also, for patients with a history of failed moderate sedation consider anesthesia. Airway Lungs Heart ASA score ASA 1: a normal healthy patient ASA 2: a patient with a mild systemic disease (mid diabetes, controlled hypertension, obesity ASA 3: a patient with a severe systemic disease that limits activity (angina, COPD, prior Myocardial infarction) ASA 4: a patient with an incapacitating disease that is a constant threat to life (CHF, renal failure) ASA 5: a moribund patient not expected to survive 24 hrs. (ruptured aneurysm) ASA 6: a declared brain- patient whose organs are being harvested. For emergent operations, add the letter E after the classification Mallampati Classification Grade 3 Sedation Plan Analgesia, Amnesia, Plan communicated to team members, Discussed options with patient/fam, Discussed risks with patient/fam The patient is an appropriate candidate to undergo the planned procedure, sedation, and anesthesia. The patient immediately re-assessed prior to indication. LEON MINER MD Dec 07, 2020 10:43
--- NOTE | 2020-12-07 10:44 | Cardioversion ---
Cardioversion PROCEDURE PHYSICIAN: Leon Moctezuma DATE OF PROCEDURE: 12/07/20 DIRECT EXTERNAL ELECTRICAL CARDIOVERSION: Indications: Atrial Fibrillation with rapid ventricular rate Preoperative diagnoses: Atrial Fibrillation with rapid ventricular rate Postoperative diagnosis: Sinus rhythm, Successful Electrical Cardioversion Anesthesia: By Anesthesia services Complications: None Specimen: None Contrast: 0 Flouroscopy: none Procedure Details: 80 years old gentleman with paroxysmal atrial fibrillation, started on oral anticoagulation, scheduled for NANCY which was done showing no clot or thrombus. Proceeded with electrical cardioversion The patient was brought the lab director after informed consent was taken, all the risks and complications were explained including the risk of stroke. Electrical cardioversion was carried out with anesthesia support with propofol. 200 joules of synchronized shock was delivered through external patches which promptly restored sinus rhythm. The patient tolerated the procedure well. Conclusions: Successful electrical cardioversion with no complication Final Diagnosis: Paroxysmal atrial fibrillation Palpitation Hypertension Hyperlipidemia LEON MOCTEZUMA MD Dec 07, 2020 10:43
[2020-12-07 10:46] VITALS: BP 170/34
--- NOTE | 2020-12-07 10:48 | Implantation of Loop Monitor ---
Implant of Loop Monitior IMPLANTATION OF LOOP MONITOR REPORT DATE OF PROCEDURE: 12/07/20 PREOP DIAGNOSIS: Paroxysmal atrial fibrillation POSTOP DIAGNOSIS: Paroxysmal atrial fibrillation PROCEDURE DETAILS: The patient is a 80 male with history of paroxysmal atrial fibrillation requiring long-term surveillance, underwent NANCY with electrical cardioversion, started on amiodarone and scheduled for loop implant. Therefore implantable loop recorder was discussed and agreed with the patient. Informed consent was taken. All risks and complications were discussed at length. The patient was draped and prepped in the usual sterile fashion. Local anesthesia was lidocaine, which was given in the substernal area close to the 4th intercostal space. Loop monitor [employer] Serial number [id number] was implanted according to the protocol. Steri-Strips were placed at the end of the procedure. There were no complications and the patient tolerated the procedure well. The device was interrogated with a voltage of. ANESTHESIA: Local anesthesia with lidocaine. COMPLICATIONS: None CONTRAST/FLUOROSCOPY: None CONCLUSION: Successful implantation of loop monitor with no complication FINAL DIAGNOSIS: Paroxysmal atrial fibrillation Palpitation LEON MINER MD Dec 07, 2020 10:48
[2020-12-07 11:00] VITALS: BP 165/87
== END | disposition home or self-care (01) ==
LOC: SDC 08:18
PROVIDERS: ATTEND Internal Medicine Cardiovascular Disease
DX: I48.0 Paroxysmal atrial fibrillation (principal); R00.2 Palpitations; E78.2 Mixed hyperlipidemia; E66.9 Obesity, unspecified; G20 Parkinson's disease; I10 Essential (primary) hypertension; I65.23 Occlusion and stenosis of bilateral carotid arteries; M19.90 Unspecified osteoarthritis, unspecified site; M54.2 Cervicalgia; K21.9 Gastro-esophageal reflux disease without esophagitis; Z79.01 Long term (current) use of anticoagulants; Z79.899 Other long term (current) drug therapy; Z79.82 Long term (current) use of aspirin; Z68.28 Body mass index [BMI] 28.0-28.9, adult
CPT/HCPCS: 33285; 71045; 80053; 85027; 85610; 85730; 87081; 92960; 93005; 93312; C1764; 36415

== ENCOUNTER 2021-02-13 06:58 | Outpatient (CLI) | payer MEDICARE ==
[~2021-02-13] VITALS: Ht 175 cm; Wt 87.0 kg
[~2021-02-13 06:58] MED LIST changes: -AMIO200T6 PO; +AMIO200T65 PO; -AMIODARONE FOR BOLUS 150 MG in D5W 100 ML IVPB 100 ML IV ONE; -APIXABAN 5 MG (ELIQUIS) TABLET PO ONE; +CYCL10TA25 PO; -CYCL10TA9 PO; -LIDOCAINE 1% INJ 20 ML 20 ML VIAL INJ ONE; -LIDOCAINE 1% INJ 20 ML 20 ML VIAL ONE; -LIDOCAINE 2% VISCOUS 15 ML UDC ONE; -LIDOCAINE 2% VISCOUS 15 ML UDC PO ONE; -NS IV 1000 ML 1,000 ML IV SCH; -NS IV 1000 ML 1,000 ML ONE; +POTA-160 PO; -POTA10TA36 PO; +POTA10TA37 PO; -POTA10TA6 PO; -proPOfol 200 MG/20 ML (DIPRIVAN) VIAL IV ONE
[2021-02-15] MEDS ORDERED: AMIO200T65 PO (12:03)
== END 2021-02-15 12:07 | disposition home or self-care (01) ==
LOC: PREOP 06:58
PROVIDERS: ATTEND Specialist
DX: Z01.818 Encounter for other preprocedural examination (principal)

== ENCOUNTER 2021-02-17 07:53 | Day surgery (SDC) | payer MEDICARE ==
[~2021-02-17] VITALS: Ht 175 cm; Wt 87.0 kg
[2021-02-17] MEDS ORDERED: MOXIFLOXACIN OPHTH SOLN 5 MG/ML 0.3 ML SYRINGE OP ONE (08:15)
[2021-02-17] MEDS ORDERED: LIDOCAINE PF 1% 2 ML VIAL IR PRN (08:15)
[2021-02-17] MEDS ORDERED: POVIDONE (BETADINE) OPHTH SOLN 5% 30 ML OP ONE (08:15)
[2021-02-17] MEDS ORDERED: TIMOLOL MALEATE 0.5% 5 ML (TIMOPTIC) BTL OU PRN (08:15)
[2021-02-17] MEDS: TETRACAINE 0.5% OPHTH SOLN 4 ML BTL (SINGLE DOSE ONLY) OU PRN ×4 (08:20→08:37)
[2021-02-17 08:24] VITALS: BP 124/81
[2021-02-17] MEDS: PHENYLEPHRINE 10% OPHTH (NEO-SYN) 5 ML BTL OU SCH ×3 (08:27→08:37)
[2021-02-17] MEDS: TROPICAMIDE 1% OPH SOLN (MYDRIACYL) 15 ML BTL OP SCH ×3 (08:27→08:37)
[2021-02-17] MEDS ORDERED: MIDAZOLAM 2 MG/2 ML (VERSED) VIAL ONE (09:05)
--- NOTE | 2021-02-17 09:13 | Ophthalmologist Pre-Op Note ---
Pre-Operative Progress Note H&P Reviewed The H&P was reviewed, patient examined and no changes noted. Date H&P Reviewed: Feb 17, 2021 Time H&P Reviewed: 09:12 Pre-Op Dx Cataract, Left Eye GONZALES THOMAS MD Feb 17, 2021 09:13
[2021-02-17] MEDS ORDERED: acetaZOLAMIDE ER 500 MG CAP (DIAMOX SEQUELS) PO ONE (09:30)
--- NOTE | 2021-02-17 09:40 | Ophthalmology Operative Report ---
Cataract removal/placement IOL PREOPERATIVE DIAGNOSIS: Cataract Left Eye POSTOPERATIVE DIAGNOSIS: Cataract Left Eye PROCEDURE: Cataract removal and placement of posterior chamber implant, left eye SURGEON: Nick Thomas ANESTHESIA: Topical with sedation COMPLICATIONS: None ESTIMATED BLOOD LOSS: Minimal DESCRIPTION OF PROCEDURE: After proper informed consent was obtained, the patient, a 80 male, was taken to the Operating Room and the left eye was anesthetized with tetracaine. The left eye was then prepped and draped in the usual manner. A wire lid speculum was placed. A paracentesis was made at the left hand position. Preservative free lidocaine was injected into the anterior chamber followed by viscoelastic. A clear corneal incision was made in the temporal position. A capsulorrhexis was preformed and the central nuclear and cortical material were removed. The posterior capsule was polished and an Bart 22.0 AU00T0 was placed into the capsular bag. The residual viscoelastic was aspirated and balanced saline solution was injected into the anterior chamber. Moxifloxacin was injected into the anterior chamber. The wound was checked and found to be water tight. The patient tolerated the procedure well without complications. NICK THOMAS MD Feb 17, 2021 09:40
[2021-02-17 09:46] VITALS: BP 136/75
--- NOTE | 2021-02-17 13:09 | Anesthesia-General Post-Op ---
MAC Patient Condition Mental Status/LOC: Same as Preop Cardiovascular: Satisfactory Nausea/Vomiting: Absent Respiratory: Satisfactory Pain: Controlled Complications: Absent Post Op Complications Complications None Follow Up Care/Instructions Patient Instructions None needed. Anesthesiology Discharge Order Discharge Order Patient is doing well, no complaints, stable vital signs, no apparent adverse anesthesia problems. No complications reported per nursing. TIFFANY MACIAS CRNA Feb 17, 2021 13:09
== END 2021-02-17 09:48 ==
LOC: SDC 07:53
PROVIDERS: ATTEND Specialist
DX: H25.12 Age-related nuclear cataract, left eye (principal); I10 Essential (primary) hypertension; Z87.891 Personal history of nicotine dependence
CPT/HCPCS: 66984; V2632

== ENCOUNTER 2021-03-10 08:25 | Day surgery (SDC) | payer MEDICARE ==
[~2021-03-10] VITALS: Ht 175 cm; Wt 87.0 kg
[2021-03-10] MEDS ORDERED: POVIDONE (BETADINE) OPHTH SOLN 5% 30 ML OP ONE (08:30)
[2021-03-10] MEDS ORDERED: MOXIFLOXACIN OPHTH SOLN 5 MG/ML 0.3 ML SYRINGE OP ONE (08:30)
[2021-03-10] MEDS ORDERED: LIDOCAINE PF 1% 2 ML VIAL IR PRN (08:30)
[2021-03-10] MEDS ORDERED: TIMOLOL MALEATE 0.5% 5 ML (TIMOPTIC) BTL OU PRN (08:30)
[2021-03-10] MEDS: TETRACAINE 0.5% OPHTH SOLN 4 ML BTL (SINGLE DOSE ONLY) OU PRN ×4 (08:36→08:53)
[2021-03-10 08:41] VITALS: BP 155/91
[2021-03-10] MEDS: TROPICAMIDE 1% OPH SOLN (MYDRIACYL) 15 ML BTL OP SCH ×3 (08:43→08:53)
[2021-03-10] MEDS: PHENYLEPHRINE 10% OPHTH (NEO-SYN) 5 ML BTL OU SCH ×3 (08:43→08:53)
--- NOTE | 2021-03-10 09:14 | Ophthalmologist Pre-Op Note ---
Pre-Operative Progress Note H&P Reviewed The H&P was reviewed, patient examined and no changes noted. Date H&P Reviewed: Mar 10, 2021 Time H&P Reviewed: 09:13 Pre-Op Dx Cataract, Right Eye GONZALES THOMAS MD Mar 10, 2021 09:13
[2021-03-10] MEDS ORDERED: MIDAZOLAM 2 MG/2 ML (VERSED) VIAL ONE (09:20)
--- NOTE | 2021-03-10 09:35 | Ophthalmology Operative Report ---
Cataract removal/placement IOL PREOPERATIVE DIAGNOSIS: Cataract Right Eye POSTOPERATIVE DIAGNOSIS: Cataract Right Eye PROCEDURE: Cataract removal and placement of posterior chamber implant, right eye SURGEON: Nick Thomas ANESTHESIA: Topical with sedation COMPLICATIONS: None ESTIMATED BLOOD LOSS: Minimal DESCRIPTION OF PROCEDURE: After proper informed consent was obtained, the patient, a 81 male, was taken to the Operating Room and the right eye was anesthetized with tetracaine. The right eye was then prepped and draped in the usual manner. A wire lid speculum was placed. A paracentesis was made at the left hand position. Preservative free lidocaine was injected into the anterior chamber followed by viscoelastic. A clear corneal incision was made in the temporal position. A capsulorrhexis was preformed and the central nuclear and cortical material were removed. The posterior capsule was polished and Bart 21.0 AU00T0 IOL was placed into the capsular bag. The residual viscoelastic was aspirated and balanced saline solution was injected into the anterior chamber. Moxifloxacin was injected into the anterior chamber. The wound was checked and found to be water tight. The patient tolerated the procedure well without complications. NICK THOMAS MD Mar 10, 2021 09:35
[2021-03-10 09:38] VITALS: BP 137/80
[2021-03-10] MEDS ORDERED: acetaZOLAMIDE ER 500 MG CAP (DIAMOX SEQUELS) PO ONE (10:00)
--- NOTE | 2021-03-10 11:28 | Anesthesia-General Post-Op ---
MAC Patient Condition Mental Status/LOC: Same as Preop Cardiovascular: Satisfactory Nausea/Vomiting: Absent Respiratory: Satisfactory Pain: Controlled Complications: Absent Post Op Complications Complications None Follow Up Care/Instructions Patient Instructions None needed. Anesthesiology Discharge Order Discharge Order Patient is doing well, no complaints, stable vital signs, no apparent adverse anesthesia problems. No complications reported per nursing. AIDE ALCANTAR CRNA Mar 10, 2021 11:28
== END 2021-03-10 09:48 ==
LOC: SDC 08:25
PROVIDERS: ATTEND Specialist
DX: H25.11 Age-related nuclear cataract, right eye (principal); K21.9 Gastro-esophageal reflux disease without esophagitis; I10 Essential (primary) hypertension; I48.91 Unspecified atrial fibrillation; F41.9 Anxiety disorder, unspecified; Z79.82 Long term (current) use of aspirin; Z79.899 Other long term (current) drug therapy; Z87.891 Personal history of nicotine dependence; Z85.46 Personal history of malignant neoplasm of prostate
CPT/HCPCS: 66984; V2632

== ENCOUNTER 2021-04-09 20:45 | Inpatient (IN) | payer MEDICARE ==
[~2021-04-09] VITALS: Ht 175.2 cm; Wt 88.9 kg
[2021-04-09] MEDS ORDERED: NS IV 500 ML 500 ML IV ONE (21:00)
--- NOTE | 2021-04-09 21:04 | ED Chest Pain ---
General Chief Complaint: Cardiac/General Problems Stated Complaint: SOA Source: patient Exam Limitations: no limitations History of Present Illness Date Seen by Provider: Apr 09, 2021 Time Seen by Provider: 20:50 Initial Comments Here with report of 3 days of tachycardia and intermittent chest heaviness and arm heaviness. Does feel palpitations. States sometimes when he is laying back he feels that more and is short of breath with that. Does have history of atrial fibrillation as well as cardioversion. He is on amiodarone and Eliquis. Reports taking his medications as directed including aspirin daily. States that things have been going on long enough that he was concerned and he felt a little bit more short of breath tonight. Does have some swelling of his feet that he states is chronic. States overall this has been going on since the [place] lost the [facility] championship game. Timing/Duration: 3-4 days Severity/Quality: mild, moderate, other (Heaviness) Location: central Radiation: arms Prior CP/Workup: echocardiography, stress test Modifying Factors: improves with palpation, improves with rest ASA po BAKERY CLERK: Yes NTG SL BAKERY CLERK: No Associated Symptoms: No abdominal pain, No back pain, No diaphoresis, No dizziness; fatigue; No fever/chills, No nausea/vomiting; shortness of breath, weakness Allergies and Home Medications Allergies Coded Allergies: No Known Drug Allergies (Unverified , 10/20/17) Patient Home Medication List Home Medication List Reviewed: Yes Acetaminophen (Tylenol) 325 Mg Tablet, 650 MG PO Q6H PRN for PAIN-MILD (1-4), (Reported) Entered as Reported by: BURT PATEL on 12/07/20918 Amiodarone HCl (Amiodarone HCl) 200 Mg Tablet, 200 MG PO BID, (Reported) Entered as Reported by: HEAVENLY HERRERA on 02/15/21 1203 Apixaban (Eliquis) 5 Mg Tablet, 5 MG PO BID, (Reported) Entered as Reported by: BURT PATEL on 12/07/20918 Aspirin (Aspirin EC) 81 Mg Tablet.dr, 81 MG PO HS, (Reported) Entered as Reported by: RAGHAVENDRA SHEN on 12/03/20 0336 Buspirone HCl (Buspirone HCl) 15 Mg Tablet, 15 MG PO BID, (Reported) Entered as Reported by: LIBIA PAYTON on 01/04/18 1225 Carbidopa/Levodopa (Carbidopa-Levodopa 25-100 Tab) 1 Each Tablet, 1 TAB PO TID, (Reported) Entered as Reported by: RAGHAVENDRA SHEN on 12/03/20 033 Carvedilol (Carvedilol) 3.125 Mg Tablet, 3.125 MG PO BID, (Reported) Entered as Reported by: BURT PATEL on 12/07/20918 Cyclobenzaprine HCl (Cyclobenzaprine HCl) 5 Mg Tablet, 5 MG PO HS, (Reported) Entered as Reported by: RAGHAVENDRA SHEN on 12/02/202117 Diclofenac Sodium (Voltaren Arthritis Pain) 20 Gm Gel..gram., 1 GM TP Q6H PRN for PAIN-BREAKTHROUGH, (Reported) Entered as Reported by: RAGHAVENDRA SHEN on 12/03/20 040 Famotidine (Famotidine) 20 Mg Tablet, 20 MG PO BID, (Reported) Entered as Reported by: RAGHAVENDRA SHEN on 12/03/20337 Fentanyl (Fentanyl Patch 25 MCG) 1 Each Patch.td72, 25 MCG TD Q72H, (Reported) Entered as Reported by: BURT PATEL on 12/07/20918 Fexofenadine HCl (Joellen Allergy) 180 Mg Tablet, 180 MG PO DAILY PRN for ALLERGIES, (Reported) Entered as Reported by: BURT PATEL on 12/07/20918 Furosemide (Lasix) 20 Mg Tablet, 20 MG PO DAILY, (Reported) Entered as Reported by: BURT PATEL on 12/07/20918 Gabapentin (Gabapentin) 100 Mg Capsule, 100 MG PO TID, (Reported) Entered as Reported by: BURT PATEL on 12/07/20918 Hydrochlorothiazide (Hydrochlorothiazide) 25 Mg Tablet, 25 MG PO DAILY, (Reported) Entered as Reported by: RAGHAVENDRA SHEN on 12/03/20316 Hydrocodone/Acetaminophen (Hydrocodone-Acetamin 5-325 mg) 1 Each Tablet, 1 TAB PO Q6H PRN for PAIN-MODERATE (5-7), (Reported) Entered as Reported by: BURT PATEL on 12/07/20918 Neomycin Mcclellan/Bacitrac Zn/Poly (Neosporin Ointment) 28.3 Gm Oint...g., 1 APPLIC TP BID, (Reported) Entered as Reported by: BURT PATEL on 12/07/20918 [place]-3/Dha/Epa/Fish Oil (Fish Oil 1,400 mg Softgel) 1 Each Capsule.dr, 1 EACH PO TID, (Reported) Entered as Reported by: BURT PATEL on 12/07/20918 Polyethylene Glycol 3350 (Polyethylene Glycol 3350) 17 Gm Powd.pack, 17 GM PO HS, (Reported) Entered as Reported by: RAGHAVENDRA SHEN on 12/03/20346 Potassium Chloride (Potassium Chloride) 10 Meq Tab.er.prt, 20 MEQ PO DAILY, (Reported) Entered as Reported by: RAGHAVENDRA SHEN on 12/03/20358 Ropinirole HCl (Ropinirole HCl) 1 Mg Tablet, 1 MG PO TID, (Reported) Entered as Reported by: RAGHAVENDRA SHEN on 12/03/20336 Sennosides/Docusate Sodium (Senna-S 8.6-50 mg Tablet) 1 Each Tablet, 1 EACH PO BID, (Reported) Entered as Reported by: RAGHAVENDRA SHEN on 12/03/20356 Discontinued Medications Amlodipine Besylate (Amlodipine Besylate) 5 Mg Tablet, 5 MG PO BID PRN for HYPERTENSION, (Reported) Discontinued Reason: Referral/FU Appt-Addtl Entered as Reported by: BURT PATEL on 12/07/20918 Last Action: Discontinued Review of Systems Review of Systems Constitutional: see HPI; No chills, No fever; weakness EENTM: No Nose Congestion, No Throat Pain Respiratory: Denies Shortness of Air, Denies SOA at Rest Cardiovascular: Denies Chest Pain; Edema, Palpitations Gastrointestinal: Denies Diarrhea, Denies Nausea, Denies Vomiting Genitourinary: No Symptoms Reported Musculoskeletal: muscle weakness (Arms), neck pain (Chronic) Skin: no symptoms reported All Other Systems Reviewed Negative Unless Noted: Yes Past Xwvudyw-Xwbwvu-Tsycqn Hx Patient Social History Tobacco Use?: No Substance use?: No Alcohol Use?: Yes Alcohol type: Hard Liquor ([place]itten) Alcohol Frequency: Once in a while Immunizations Up To Date First/Initial COVID19 Vaccinat: 03/24 Second COVID19 Vaccination Anam: 03/24 Third COVID19 Vaccination Date: 03/24 Seasonal Allergies Seasonal Allergies: No Past Medical History Surgeries: Yes Orthopedic, Prostatectomy Respiratory: No Cardiac: Yes Atrial Fibrillation, Hypertension Neurological: Yes Parkinson's Disease Reproductive Disorders: No Sexually Transmitted Disease: No HIV/AIDS: No Genitourinary: Yes Prostate Problems Gastrointestinal: No Musculoskeletal: Yes Arthritis, Spasms Endocrine: No HEENT: No Cancer: Yes Prostate Psychosocial: Yes Anxiety Integumentary: No Blood Disorders: No Adverse Reaction/Blood Tranf: No Family Medical History Reviewed Nursing Family Hx Patient reports no known family medical history. Heart Disease, Diabetes, Hypertension, Stroke Physical Exam Vital Signs Vital Signs - First Documented Capillary Refill : Height, Weight, BMI Height: 5'7.00" Weight: 170lbs. 0.0oz. 77.425139ew; 28.40 BMI Method:Estimated General Appearance: No Apparent Distress, WD/WN HEENT: PERRL/EOMI, Pharynx Normal Neck: Non Tender Respiratory: Lungs Clear, Normal Breath Sounds Cardiovascular: No Murmur, Tachycardia Gastrointestinal: Non Tender, Soft Extremity: Normal Range of Motion, Non Tender Neurologic/Psychiatric: Alert, Oriented x3 Skin: Normal Color, Warm/Dry Progress/Results/Core Measures Results/Orders Lab Results Laboratory Tests Test 04/09/21 21:00 Range/Units White Blood Count 5.8 4.3-11.0 10^3/uL Red Blood Count 4.80 4.30-5.52 10^6/uL Hemoglobin 14.9 13.3-17.7 g/dL Hematocrit 43 40-54 % Mean Corpuscular Volume 89 80-99 fL Mean Corpuscular Hemoglobin 31 25-34 pg Mean Corpuscular Hemoglobin Concent 35 32-36 g/dL Red Cell Distribution Width 13.9 10.0-14.5 % Platelet Count 164 130-400 10^3/uL Mean Platelet Volume 8.9 L 9.0-12.2 fL Immature Granulocyte % (Auto) 0 % Neutrophils (%) (Auto) 47 42-75 % Lymphocytes (%) (Auto) 35 12-44 % Monocytes (%) (Auto) 14 H 0-12 % Eosinophils (%) (Auto) 3 0-10 % Basophils (%) (Auto) 1 0-10 % Neutrophils # (Auto) 2.7 1.8-7.8 10^3/uL Lymphocytes # (Auto) 2.0 1.0-4.0 10^3/uL Monocytes # (Auto) 0.8 0.0-1.0 10^3/uL Eosinophils # (Auto) 0.2 0.0-0.3 10^3/uL Basophils # (Auto) 0.1 0.0-0.1 10^3/uL Immature Granulocyte # (Auto) 0.0 0.0-0.1 10^3/uL Prothrombin Time 14.8 H 12.2-14.7 SEC INR Comment 1.1 0.8-1.4 Activated Partial Thromboplast Time 40 H 24-35 SEC Sodium Level 142 135-145 MMOL/L Potassium Level 3.2 L 3.6-5.0 MMOL/L Chloride Level 103 98-107 MMOL/L Carbon Dioxide Level 24 21-32 MMOL/L Anion Gap 15 H 5-14 MMOL/L Blood Urea Nitrogen 22 H 7-18 MG/DL Creatinine 1.35 H 0.60-1.30 MG/DL Estimat Glomerular Filtration Rate 52 BUN/Creatinine Ratio 16 Glucose Level 113 H 70-105 MG/DL Calcium Level 8.6 8.5-10.1 MG/DL Corrected Calcium 8.6 8.5-10.1 MG/DL Magnesium Level 2.4 1.6-2.4 MG/DL Total Bilirubin 0.8 0.1-1.0 MG/DL Aspartate Amino Transf (AST/SGOT) 19 5-34 U/L Alanine Aminotransferase (ALT/SGPT) 24 0-55 U/L Alkaline Phosphatase 41 40-136 U/L Myoglobin 79.4 10.0-92.0 NG/ML Troponin I < 0.028 <0.028 NG/ML B-Type Natriuretic Peptide 262.1 H <100.0 PG/ML Total Protein 7.1 6.4-8.2 GM/DL Albumin 4.0 3.2-4.5 GM/DL My Orders Orders - SURYA TURPIN MD Cbc With Automated Diff (04/09/21 20:59) Magnesium (04/09/21 20:59) Chest 1 View, Ap/Pa Only (04/09/21 20:59) Ekg Tracing (04/09/21 20:59) Comprehensive Metabolic Panel (04/09/21 20:59) Myoglobin Serum (04/09/21 20:59) Protime With Inr (04/09/21 20:59) Partial Thromboplastin Time (04/09/21 20:59) O2 (04/09/21 20:59) Monitor-Rhythm Ecg Trace Only (04/09/21 20:59) Ed Iv/Invasive Line Start (04/09/21 20:59) Bnp [place] (04/09/21 20:59) Troponin I [place] (04/09/21 20:59) Ns Iv 500 Ml (Sodium Chloride 0.9%) (04/09/21 21:00) Diltiazem Drip Pre-Mix (Cardizem Drip Pr (04/09/21 21:45) Medications Given in ED Vital Signs/I&O 04/09/21 04/09/21 20:47 20:47 Temp 36.2 Pulse 122 Resp 18 B/P (MAP) 117/100 (106) Pulse Ox 98 O2 Delivery Room Air Room Air Progress Progress Note : Progress Note Seen and evaluated. IV, labs, EKG and chest x-ray ordered. Normal saline 500 mL bolus. No aspirin as he already takes this. He is also on Eliquis so does not need anticoagulation. EKG read out as sinus tach but I disagree and believe that it is atrial fibrillation versus atrial flutter. He is currently on amiodarone. We will see how fluids affects him and then consider other measures. Patient denies chest pain currently. Monitor patient. 2149: I did discuss the case with Dr. Pascual. He is recommending Cardizem drip at 10 mg/h and admission with Dr. Moctezuma to follow tomorrow. I did discuss the case with Dr. Schaffer and he accepts patient for admission for Dr. Chau. Patient to go to cardiac stepdown. 2202. I did put patient on 2 L via nasal cannula for comfort. O2 saturation 94% but he states that he feels a little short of breath still. Cardizem drip has been started. Blood pressure 100 systolic with heart rate 112-118. Admit, inpatient status. Patient agrees to plan. Initial ECG Impression Date: Apr 09, 2021 Initial ECG Impression Time: 20:53 Initial ECG Rate: 116 Initial ECG Rhythm: A Fib/Flutter Comment Atrial fibrillation/atrial flutter with rate of 1 16-1 20. Left axis deviation. No evidence of ST elevation NM. Change from previous of 12/07/2020 which was sinus rhythm. Interpreted by me. Diagnostic Imaging Diagonstic Imaging: Xray Plain Films/CT/US/NM/MRI: chest Comments NAME: KUSH PINON [facility] REC#: [id number] PT STATUS: REG ER : 1940 PHYSICIAN: SURYA TURPIN MD ADMIT DATE: 04/09/21/ER Draft Date of Exam:04/09/21 CHEST 1 VIEW, AP/PA ONLY INDICATION: Chest pain. EXAMINATION: Chest, 04/09/2021. COMPARISON: 12/07/2020. FINDINGS: There is a loop recorder device on the left. Heart and pulmonary vasculature appear unremarkable. Lungs and pleural spaces clear. No infiltrates, effusions or pneumothorax. IMPRESSION: No acute process. Dictated on workstation # [id number] Dict: 04/09/212124 Trans: 04/09/212127 [facility] [id number] Interpreted by: STEPHANIE HAZEL MD Electronically signed by: Reviewed: Reviewed by Me Departure Communication (Admissions) Time/Spoke to Admitting Phy: 21:45 Time/Spoke to Consulting Phy: 21:40 Impression Primary Impression: PAF (paroxysmal atrial fibrillation) Disposition: ADMITTED INPATIENT Condition: Stable Admissions Decision to Admit Reason: Admit from ER (General) Decision to Admit/Date: Apr 09, 2021 Time/Decision to Admit Time: 21:45 Departure-Patient Inst. Referrals: BONNIE CHAU MD (PCP/Family) Primary Care Physician SURYA TURPIN MD Apr 09, 2021 21:04
[2021-04-09 21:12] LABS: BASOPHILS # (AUTO) 0.1 10^3/uL (0.0-0.1); BASOPHILS % (AUTO) 1 % (0-10); EOSINOPHILS # (AUTO) 0.2 10^3/uL (0.0-0.3); EOSINOPHILS % (AUTO) 3 % (0-10); HEMATOCRIT 43 % (40-54); HEMOGLOBIN 14.9 g/dL (13.3-17.7); LYMPHOCYTES % (AUTO) 35 % (12-44); MEAN CORPUSCULAR HEMOGLOBIN 31 pg (25-34); MEAN CORPUSCULAR HGB CONC 35 g/dL (32-36); MEAN CORPUSCULAR VOLUME 89 fL (80-99); MEAN PLATELET VOLUME 8.9 fL (9.0-12.2); MONOCYTES # (AUTO) 0.8 10^3/uL (0.0-1.0); MONOCYTES % (AUTO) 14 % (0-12); NEUTROPHILS # (AUTO) 2.7 10^3/uL (1.8-7.8); NEUTROPHILS % (AUTO) 47 % (42-75); PLATELET COUNT 164 10^3/uL (130-400); WHITE BLOOD COUNT 5.8 10^3/uL (4.3-11.0)
[2021-04-09 21:26] LABS: POTASSIUM 3.2 MMOL/L (3.6-5.0)
[2021-04-09 21:27] LABS: CALCIUM 8.6 MG/DL (8.5-10.1)
[2021-04-09 21:28] LABS: TOTAL PROTEIN 7.1 GM/DL (6.4-8.2)
--- NOTE | 2021-04-09 21:28 | Diagnostic Imaging Report ---
INDICATION: Chest pain. EXAMINATION: Chest, 04/09/2021. COMPARISON: 12/07/2020. FINDINGS: There is a loop recorder device on the left. Heart and pulmonary vasculature appear unremarkable. Lungs and pleural spaces clear. No infiltrates, effusions or pneumothorax. IMPRESSION: No acute process. Dictated by: Dictated on workstation # [id number]
[2021-04-09 21:30] LABS: BILIRUBIN,TOTAL 0.8 MG/DL (0.1-1.0)
[2021-04-09 21:31] LABS: INR 1.1 (0.8-1.4); PROTHROMBIN TIME PATIENT 14.8 SEC (12.2-14.7)
[2021-04-09 21:32] LABS: CREATININE SERUM 1.35 MG/DL (0.60-1.30)
[2021-04-09 21:35] LABS: MAGNESIUM 2.4 MG/DL (1.6-2.4)
[2021-04-09] MEDS ORDERED: dilTIAZem DRIP PRE-MIX 125 ML IV SCH ×2 (21:45→22:30)
[2021-04-09 22:08] VITALS: BP 107/93
[2021-04-09] MEDS ORDERED: NS IV 1000 ML 1,000 ML IV SCH (22:30)
[2021-04-10 05:36] LABS: BASOPHILS % (AUTO) 1 % (0-10); EOSINOPHILS # (AUTO) 0.2 10^3/uL (0.0-0.3); EOSINOPHILS % (AUTO) 4 % (0-10); HEMATOCRIT 41 % (40-54); HEMOGLOBIN 13.9 g/dL (13.3-17.7); LYMPHOCYTES # (AUTO) 1.6 10^3/uL (1.0-4.0); LYMPHOCYTES % (AUTO) 41 % (12-44); MEAN CORPUSCULAR HEMOGLOBIN 31 pg (25-34); MEAN CORPUSCULAR HGB CONC 34 g/dL (32-36); MEAN CORPUSCULAR VOLUME 92 fL (80-99); MONOCYTES # (AUTO) 0.5 10^3/uL (0.0-1.0); MONOCYTES % (AUTO) 13 % (0-12); NEUTROPHILS # (AUTO) 1.6 10^3/uL (1.8-7.8); NEUTROPHILS % (AUTO) 41 % (42-75); PLATELET COUNT 149 10^3/uL (130-400)
[2021-04-10 05:54] LABS: POTASSIUM 3.2 MMOL/L (3.6-5.0)
[2021-04-10 05:56] LABS: CALCIUM 8.2 MG/DL (8.5-10.1)
[2021-04-10 06:00] LABS: CREATININE SERUM 1.17 MG/DL (0.60-1.30)
--- NOTE | 2021-04-10 08:19 | History & Physical ---
History of Present Illness History of Present Illness Reason for visit/HPI CC: Tachycardia and SOB HPI: Mr. Barrow is an 81 year old male with a past medical history of atrial fibrillation and Parkinson disease who presented to the ED yesterday with a chief complaint of chest tightness, palpitations, tachycardia and SOB. He reported that he had been having "a few days" of tachycardia and chest tightness. He reported his heart rate as being around 130-140 bpm. He endorsed associated retrosternal chest tightness that radiated outward bilaterally. He also had associated anxiety. He said the medicine that he got at the hospital made it better. Nothing made it worse. He denied any relation to time of day and said the episodes were random. An initial EKG was done showing AFib with RVR. A CXR was unremarkable. Nursing reports that he converted to sinus rhythm yesterday evening after being moved to the floor and has maintained sinus rhythm since. Date of Admission Apr 09, 2021 at 21:45 Date Seen by a Provider: Apr 10, 2021 Time Seen by a Provider: 07:35 I consulted on this patient on 04/10/21 08:13 Attending Physician Bernadette Chau MD Admitting Physician Bernadette Chau MD Consult Allergies and Home Medications Allergies Coded Allergies: No Known Drug Allergies (Unverified , 10/20/17) Patient Home Medication List Acetaminophen (Tylenol) 325 Mg Tablet, 650 MG PO Q6H PRN for PAIN-MILD (1-4), (Reported) Entered as Reported by: BURT PATEL on 12/07/20918 Amiodarone HCl (Amiodarone HCl) 200 Mg Tablet, 200 MG PO BID, (Reported) Entered as Reported by: HEAVENLY HERRERA on 02/15/21 1203 Amlodipine Besylate (Amlodipine Besylate) 5 Mg Tablet, 5 MG PO BID PRN for HYPERTENSION, (Reported) Entered as Reported by: BURT PATEL on 12/07/20918 Apixaban (Eliquis) 5 Mg Tablet, 5 MG PO BID, (Reported) Entered as Reported by: BURT PATEL on 12/07/20918 Aspirin (Aspirin EC) 81 Mg Tablet., 81 MG PO HS, (Reported) Entered as Reported by: RAGHAVENDRA SHEN on 12/03/20 0336 Buspirone HCl (Buspirone HCl) 15 Mg Tablet, 15 MG PO BID, (Reported) Entered as Reported by: LIBIA PAYTON on 01/04/18 1225 Carbidopa/Levodopa (Carbidopa-Levodopa 25-100 Tab) 1 Each Tablet, 1 TAB PO TID, (Reported) Entered as Reported by: RAGHAVENDRA SHEN on 12/03/20338 Carvedilol (Carvedilol) 3.125 Mg Tablet, 3.125 MG PO BID, (Reported) Entered as Reported by: BURT PATEL on 12/07/20918 Cyclobenzaprine HCl (Cyclobenzaprine HCl) 5 Mg Tablet, 5 MG PO HS, (Reported) Entered as Reported by: RAGHAVENDRA SHEN on 12/02/202117 Diclofenac Sodium (Voltaren Arthritis Pain) 20 Gm Gel..gram., 1 GM TP Q6H PRN for PAIN-BREAKTHROUGH, (Reported) Entered as Reported by: RAGHAVENDRA SHEN on 12/03/20 040 Famotidine (Famotidine) 20 Mg Tablet, 20 MG PO BID, (Reported) Entered as Reported by: RAGHAVENDRA SHEN on 12/03/20337 Fentanyl (Fentanyl Patch 25 MCG) 1 Each Patch.td72, 25 MCG TD Q72H, (Reported) Entered as Reported by: BURT PATEL on 12/07/20918 Fexofenadine HCl (Joellen Allergy) 180 Mg Tablet, 180 MG PO DAILY PRN for ALLERGIES, (Reported) Entered as Reported by: BURT PATEL on 12/07/20918 Furosemide (Lasix) 20 Mg Tablet, 20 MG PO DAILY, (Reported) Entered as Reported by: BURT PATEL on 12/07/20918 Gabapentin (Gabapentin) 100 Mg Capsule, 100 MG PO TID, (Reported) Entered as Reported by: BURT PATEL on 12/07/20918 Hydrochlorothiazide (Hydrochlorothiazide) 25 Mg Tablet, 25 MG PO DAILY, (Reported) Entered as Reported by: RAGHAVENDRA SHEN on 12/03/20316 Hydrocodone/Acetaminophen (Hydrocodone-Acetamin 5-325 mg) 1 Each Tablet, 1 TAB PO Q6H PRN for PAIN-MODERATE (5-7), (Reported) Entered as Reported by: BURT PATEL on 12/07/20918 Neomycin Mcclellan/Bacitrac Zn/Poly (Neosporin Ointment) 28.3 Gm Oint...g., 1 APPLIC TP BID, (Reported) Entered as Reported by: BURT PATEL on 12/07/20918 [place]-3/Dha/Epa/Fish Oil (Fish Oil 1,400 mg Softgel) 1 Each Capsule.dr, 1 EACH PO TID, (Reported) Entered as Reported by: BURT PATEL on 12/07/20918 Polyethylene Glycol 3350 (Polyethylene Glycol 3350) 17 Gm Powd.pack, 17 GM PO HS, (Reported) Entered as Reported by: RAGHAVENDRA SHEN on 12/03/20346 Potassium Chloride (Potassium Chloride) 10 Meq Tab.er.prt, 10 MEQ PO DAILY, (Reported) Entered as Reported by: RAGHAVENDRA SHEN on 12/03/20358 Ropinirole HCl (Ropinirole HCl) 1 Mg Tablet, 1 MG PO TID, (Reported) Entered as Reported by: RAGHAVENDRA SHEN on 12/03/20 033 Sennosides/Docusate Sodium (Senna-S 8.6-50 mg Tablet) 1 Each Tablet, 1 EACH PO BID, (Reported) Entered as Reported by: RAGHAVENDRA SHEN on 12/03/20356 Past Qtdmhyy-Xizuck-Coslsw Hx Patient Social History Tobacco Use?: No Smoking Status: Former Smoker Smokeless Tobacco Frequency: Former User (50 years. Quit 5-6 years ago.) Use of E-Cig and/or Vaping [place]ro: Never a User Substance use?: No Alcohol Use?: Yes Alcohol type: Hard Liquor Alcohol Frequency: Rarely Pt feels they are or have been: No Immunizations Up To Date Date of Influenza Vaccine: Nov 02, 2020 First/Initial COVID19 Vaccinat: 03/24 Second COVID19 Vaccination Anam: 03/24 Hepatitis A: Yes Hepatitis B: Yes Seasonal Allergies Seasonal Allergies: No Current Status Advance Directives: No Communicates: Verbally Primary Language: Bangladeshi Preferred Spoken Language: Bangladeshi Is interpretation needed?: No Implanted or Applied Medical D: Other Past Medical History Surgeries: Orthopedic (Neck), Prostatectomy Atrial Fibrillation, Hypertension Parkinson's Disease Sexually Transmitted Disease: No HIV/AIDS: No Prostate Problems Arthritis, Spasms Prostate Anxiety Blood Disorders: No Adverse Reaction/Blood Tranf: No Family Medical History Reviewed Nursing Family Hx Heart Disease, Cancer (Lymphoma in father) Review of Systems Constitutional: No chills, No fever EENTM: No blurred vision, No double vision Respiratory: No cough; short of breath Cardiovascular: chest pain, palpitations Gastrointestinal: No abdominal pain, No constipation, No diarrhea, No nausea, No vomiting Genitourinary: No dysuria, No frequency Musculoskeletal: neck pain Psychiatric/Neurological: Anxiety, Tremors (Right arm) Physical Exam Vital Signs Vital Signs - First Documented 04/09/21 22:00 O2 Flow Rate 2.00 Capillary Refill : Less Than 3 Seconds Height, Weight, BMI Height: 5'7.00" Weight: 170lbs. 0.0oz. [id number]; 28.34 BMI Method:Estimated General Appearance: No Apparent Distress, WD/WN HEENT: PERRL/EOMI, Moist Mucous Membranes; No Scleral Icterus (L), No Scleral Icterus (R) Neck: Normal Inspection; No Lymphadenopathy (L), No Lymphadenopathy (R); Other (Chronic neck pain) Respiratory: Chest Non Tender, Lungs Clear, Normal Breath Sounds, No Accessory Muscle Use, No Respiratory Distress Cardiovascular: Regular Rate, Rhythm (HR around 70. Sinus.), No Murmur, Normal Peripheral Pulses Gastrointestinal: Normal Bowel Sounds, Non Tender, Soft Extremity: Normal Inspection, Non Tender, No Calf Tenderness, No Pedal Edema Neurologic/Psychiatric: Alert, Oriented x3, Normal Mood/Affect, Other (Parkinsonian tremor in right arm) Skin: Normal Color, Warm/Dry Lymphatic: No Adenopathy (Head and neck) Assessment/Plan Assessment and Plan Assessment: Paroxysmal Atrial fibrillation with RVR - Chronic course - Currently in sinus rhythm - Rate controlled with diltiazem - EKG showed no acute ST changes Hypokalemia - 3.2 Elevated BNP - 262.1 Elevated BUN - 23 Chronic neck pain HLD Parkinson disease Plan: Dr. Moctezuma consulted with cardiology Restart home medications Potassium replacement Continue IVF Cardiology considered switching from amiodarone to another medication. Plan is to continue with amiodarone and possibly increase dose. Defer to cardiology. Assess loop recorder to determine extent of epsiodes Discharge home today if stable Clinical Quality Measures AMI/AHF: ASA po Prior to arrival: Yes AYUSH PALENCIA Apr 10, 2021 08:19
[2021-04-10] MEDS ORDERED: KCL 20 MEQ TAB (K-DUR) PO ONE (08:45)
[2021-04-10] MEDS ORDERED: APIXABAN 5 MG (ELIQUIS) TABLET PO SCH (09:00)
[2021-04-10] MEDS ORDERED: ASPIRIN 81 MG CHEW (CHILDREN'S ASA) PO SCH (09:00)
[2021-04-10] MEDS ORDERED: AMIODARONE 200 MG (CORDARONE) TAB PO SCH (09:15)
--- NOTE | 2021-04-10 09:15 | Consultation-Cardiology ---
HPI-Cardiology Cardiology Consultation Date of Consultation 04/10/21 Date of Admission Time Seen by Provider: 09:11 Indication: Atrial fibrillation HPI 81 years old gentleman with a history of paroxysmal atrial fibrillation, has been having increasing palpitation and feeling heaviness in his chest where he feels a little short of breath. He denied any chest pain. No syncope. Has underlying Parkinson and tremor. Has been having increasing neck pain and loss of energy. No fever or chills. No cough or sputum. Home Medications & Allergies Allergies: Coded Allergies: No Known Drug Allergies (Unverified , 10/20/17) Home Medication List Reviewed: Yes GBC-Dzqqva-Rfqftj Hx Patient Social History Marital Status: Smoking Status: Former Smoker Type Used: Cigarettes 2nd Hand Smoke Exposure: No Recent Hopitalizations: Yes Have you traveled recently?: No Alcohol Use?: Yes Immunizations Up To Date Date of Influenza Vaccine: Nov 02, 2020 Past Medical History Discussed below Family Medical History Significant Family History: Heart Disease, Diabetes, Hypertension, Stroke Family Medical Hx Noncontributory Family History: Patient reports no known family medical history. Review of Systems-General Review of Systems Constitutional: see HPI; No chills, No fever; weakness EENTM: see HPI, no symptoms reported Respiratory: see HPI; No cough, No dyspnea on exertion, No hemoptysis, No orthopnea, No phlegm; short of breath; No stridor, No wheezing, No other Cardiovascular: see HPI; No chest pain, No edema, No Hx of Intervention; palpitations; No syncope, No vascular heart diseas, No other Gastrointestinal: no symptoms reported, see HPI Genitourinary: no symptoms reported, see HPI Musculoskeletal: back pain; No gout; joint pain; No joint swelling, No muscle pain; muscle stiffness; No muscle cramps, No muscle twitching; muscle weakness (Arms), neck pain (Chronic); No other Skin: no symptoms reported Psychiatric/Neurological: No Symptoms Reported, See HPI All Other Systems Reviewed Negative Unless Noted: Yes Reviewed Test Results Reviewed Test Results Lab Laboratory Tests Test 04/09/21 21:00 04/10/21 05:18 Range/Units White Blood Count 5.8 4.0 L 4.3-11.0 10^3/uL Red Blood Count 4.80 4.48 4.30-5.52 10^6/uL Hemoglobin 14.9 13.9 13.3-17.7 g/dL Hematocrit 43 41 40-54 % Mean Corpuscular Volume 89 92 80-99 fL Mean Corpuscular Hemoglobin 31 31 25-34 pg Mean Corpuscular Hemoglobin Concent 35 34 32-36 g/dL Red Cell Distribution Width 13.9 14.0 10.0-14.5 % Platelet Count 164 149 130-400 10^3/uL Mean Platelet Volume 8.9 L 9.0 9.0-12.2 fL Immature Granulocyte % (Auto) 0 0 % Neutrophils (%) (Auto) 47 41 L 42-75 % Lymphocytes (%) (Auto) 35 41 12-44 % Monocytes (%) (Auto) 14 H 13 H 0-12 % Eosinophils (%) (Auto) 3 4 0-10 % Basophils (%) (Auto) 1 1 0-10 % Neutrophils # (Auto) 2.7 1.6 L 1.8-7.8 10^3/uL Lymphocytes # (Auto) 2.0 1.6 1.0-4.0 10^3/uL Monocytes # (Auto) 0.8 0.5 0.0-1.0 10^3/uL Eosinophils # (Auto) 0.2 0.2 0.0-0.3 10^3/uL Basophils # (Auto) 0.1 0.0 0.0-0.1 10^3/uL Immature Granulocyte # (Auto) 0.0 0.0 0.0-0.1 10^3/uL Prothrombin Time 14.8 H 12.2-14.7 SEC INR Comment 1.1 0.8-1.4 Activated Partial Thromboplast Time 40 H 24-35 SEC Sodium Level 142 141 135-145 MMOL/L Potassium Level 3.2 L 3.2 L 3.6-5.0 MMOL/L Chloride Level 103 104 98-107 MMOL/L Carbon Dioxide Level 24 26 21-32 MMOL/L Anion Gap 15 H 11 5-14 MMOL/L Blood Urea Nitrogen 22 H 23 H 7-18 MG/DL Creatinine 1.35 H 1.17 0.60-1.30 MG/DL Estimat Glomerular Filtration Rate 52 62 BUN/Creatinine Ratio 16 20 Glucose Level 113 H 96 70-105 MG/DL Calcium Level 8.6 8.2 L 8.5-10.1 MG/DL Corrected Calcium 8.6 8.5-10.1 MG/DL Magnesium Level 2.4 1.6-2.4 MG/DL Total Bilirubin 0.8 0.1-1.0 MG/DL Aspartate Amino Transf (AST/SGOT) 19 5-34 U/L Alanine Aminotransferase (ALT/SGPT) 24 0-55 U/L Alkaline Phosphatase 41 40-136 U/L Myoglobin 79.4 10.0-92.0 NG/ML Troponin I < 0.028 < 0.028 <0.028 NG/ML B-Type Natriuretic Peptide 262.1 H <100.0 PG/ML Total Protein 7.1 6.4-8.2 GM/DL Albumin 4.0 3.2-4.5 GM/DL Triglycerides Level 128 <150 MG/DL Cholesterol Level 185 < 200 MG/DL LDL Cholesterol Direct 141 H 1-129 MG/DL VLDL Cholesterol 26 5-40 MG/DL HDL Cholesterol 34 L 40-60 MG/DL Physical Exam Physical Exam Vital Signs Vital Signs - First Documented 04/09/21 22:00 O2 Flow Rate 2.00 Capillary Refill : Less Than 3 Seconds Height, Weight, BMI Height: 5'7.00" Weight: 170lbs. 0.0oz. 77.291148kp; 28.34 BMI Method:Estimated General Appearance: No Apparent Distress, WD/WN Eyes: Bilateral Eye Normal Inspection, Bilateral Eye PERRL, Bilateral Eye EOMI HEENT: PERRL/EOMI, Pharynx Normal Neck: Non Tender Respiratory: Lungs Clear, Normal Breath Sounds Cardiovascular: Regular Rate, Rhythm, No Murmur, Systolic Murmur Gastrointestinal: Non Tender, Soft Back: Normal Inspection, No CVA Tenderness, No Vertebral Tenderness Extremity: Normal Range of Motion, Non Tender Neurologic/Psychiatric: Alert, Oriented x3 Skin: Normal Color, Warm/Dry Lymphatic: No Adenopathy A/P-Cardiology Admission Diagnosis Paroxysmal atrial fibrillation Shortness of breath Hypokalemia Hypertension Assessment/Plan Paroxysmal atrial fibrillation, status post episode of atrial fibrillation with rapid ventricular response, converted to sinus rhythm on Cardizem drip. I will turn off the Cardizem and restart his amiodarone and monitor tolerance and response Shortness of breath. Probably secondary to atrial fibrillation, last echocardi ogram done on December 07, 2020 showing normal LV size with EF 55 to 65%, dilated left atrium, mild mitral and tricuspid regurgitation Atypical chest pain. Patient was noted to have normal EKG and normal cardiac enzymes. Probably secondary to atrial fibrillation with rapid ventricular response Hypokalemia, may be the underlying cause of his recurrent atrial fibrillation, will replace potassium and try to maintain potassium around 4 Hypertension, restart home medication monitor blood pressure Hyperlipidemia, monitor lipids Parkinson disease, having significant tremor. Managed by primary care physician Mild bilateral carotid stenosis, ultrasound was done in May 2020 Significant neck pain, arthritic pain, managed by pain management Clinical Quality Measures AMI/AHF: ASA po Prior to arrival: Yes LEON MINER MD Apr 10, 2021 09:15
--- NOTE | 2021-04-10 09:29 | Discharge Inst-Simple/Standard ---
Discharge Inst-Standard Reconcile Patient Problems Problems Reviewed?: Yes Discharge Medications New, Converted or Re-Newed RX: Other Patient Instructions/Follow Up Plan of Care/Instructions/FU: [address] gayle 1 wk [facility] 1-[address] rob for injections in neck Activity as Tolerated: Yes Discharge Diet: Regular Diet Return to The Hospital For: any chest pain, shortness of breath or other concerns BONNIE CARRION MD Apr 10, 2021 09:29
[2021-04-10] MEDS ORDERED: fentaNYL INJ 100 MCG/2 ML AMP IVP ONE (09:30)
[2021-04-10] MEDS: POTASSIUM CL 10MEQ/50ML IVPB 50 ML IV SCH ×2 (09:38→10:48)
[2021-04-11] MEDS ORDERED: KCL 20 MEQ TAB (K-DUR) PO SCH (07:00)
[2021-04-11] MEDS ORDERED: FUROSEMIDE 20 MG (LASIX) TAB PO SCH (09:00)
== END 2021-04-10 12:35 | disposition home or self-care (01) | DRG 310 ==
LOC: EDUNIT# 20:45 → ER 20:45 → CSD 21:45
PROVIDERS: ADMIT Internal Medicine; ATTEND Family Medicine
DX: I48.0 Paroxysmal atrial fibrillation (principal); I48.92 Unspecified atrial flutter; I10 Essential (primary) hypertension; G20 Parkinson's disease; M47.812 Spondylosis without myelopathy or radiculopathy, cervical region; C61 Malignant neoplasm of prostate; I08.1 Rheumatic disorders of both mitral and tricuspid valves; F41.9 Anxiety disorder, unspecified; E87.6 Hypokalemia; E78.5 Hyperlipidemia, unspecified; I65.23 Occlusion and stenosis of bilateral carotid arteries; Z79.01 Long term (current) use of anticoagulants; Z87.891 Personal history of nicotine dependence; Z79.82 Long term (current) use of aspirin
CPT/HCPCS: 36415; 71045; 80048; 80053; 80061; 83735; 83874; 83880; 84484; 85025; 85610; 85730; 93005; 93041

== ENCOUNTER → 2021-12-21 | Outpatient (CLI) | payer MEDICARE ==
[~2021-12-21] MED LIST changes: -CARB1TAB19 PO; +CARB1TAB32 PO; -FEXO-46 PO; +NF-ALLE180 PO; +POTA-177 PO; -POTA10TA37 PO
== END ==
LOC: CARD 15:00
PROVIDERS: ATTEND Internal Medicine Cardiovascular Disease
DX: I51.7 Cardiomegaly (principal); I48.0 Paroxysmal atrial fibrillation
CPT/HCPCS: 93306

== ENCOUNTER 2022-04-07 16:04 | Emergency (ER) | payer MEDICARE ==
[~2022-04-07] VITALS: Ht 175 cm; Wt 104.0 kg
--- NOTE | 2022-04-07 16:34 | ED EENT ---
History of Present Illness General Chief Complaint: Dental Problems/Pain Stated Complaint: PT ON BLOOD THINNERS, BLEEDING FROM MOUTH Nursing Triage Note: PT STATES BLEEDING IN MOUTH STARTED LAST NIGHT ABOUT 2100, MAY HAVE BEEN CAUSED BY BITING ON A LIFESAVER CANDY, TEA BAGS IN MOUTH ON ARRIVAL Source: patient, family Exam Limitations: no limitations History of Present Illness Date Seen by Provider: Apr 07, 2022 Time Seen by Provider: 16:22 Initial Comments Patient is an 82-year-old male on Xarelto for chronic A-fib who presents to the emergency department chief complaint of bleeding from the gums. Patient states it started last night around 9:00. He was eating a lifesaver and thinks that he bit it and it may have cut his gums. He has been biting on a tea bag as well as putting gauze in his mouth without any relief of symptoms. He is not short of breath, he is not nauseous. No other complaints of recent illness or injury. Timing/Duration: abrupt Severity: mild Location: dental Prearrival Treatment: other (Biting on a teabag for the last hour) Associated Symptoms: denies symptoms Allergies and Home Medications Allergies Coded Allergies: No Known Drug Allergies (Unverified , 10/20/17) Patient Home Medication List Home Medication List Reviewed: Yes Acetaminophen (Tylenol) 325 Mg Tablet, 650 MG PO Q6H PRN for PAIN-MILD (1-4), (Reported) Entered as Reported by: BURT PATEL on 12/07/20918 Amiodarone HCl (Amiodarone HCl) 200 Mg Tablet, 200 MG PO BID, (Reported) Entered as Reported by: HEAVENLY HERRERA on 02/15/21 1203 Apixaban (Eliquis) 5 Mg Tablet, 5 MG PO BID, (Reported) Entered as Reported by: BURT PATEL on 12/07/20 09 Aspirin (Aspirin EC) 81 Mg Tablet.dr, 81 MG PO HS, (Reported) Entered as Reported by: RAGHAVENDRA SHEN on 12/03/20 0336 Buspirone HCl (Buspirone HCl) 15 Mg Tablet, 15 MG PO BID, (Reported) Entered as Reported by: LIBIA PAYTON on 01/04/18 1225 Carbidopa/Levodopa (Carbidopa-Levodopa 25-100 Tab) 1 Each Tablet, 1 TAB PO TID, (Reported) Entered as Reported by: RAGHAVENDRA SHEN on 12/03/20338 Carvedilol (Carvedilol) 3.125 Mg Tablet, 3.125 MG PO BID, (Reported) Entered as Reported by: BURT PATEL on 12/07/20918 Cyclobenzaprine HCl (Cyclobenzaprine HCl) 5 Mg Tablet, 5 MG PO HS, (Reported) Entered as Reported by: RAGHAVENDRA SHEN on 12/02/202117 Diclofenac Sodium (Voltaren Arthritis Pain) 20 Gm Gel..gram., 1 GM TP Q6H PRN for PAIN-BREAKTHROUGH, (Reported) Entered as Reported by: RAGHAVENDRA SHEN on 12/03/20407 Famotidine (Famotidine) 20 Mg Tablet, 20 MG PO BID, (Reported) Entered as Reported by: RAGHAVENDRA SHEN on 12/03/20337 Fentanyl (Fentanyl Patch 25 MCG) 1 Each Patch.td72, 25 MCG TD Q72H, (Reported) Entered as Reported by: BURT PATEL on 12/07/20918 Fexofenadine HCl (Joellen Allergy) 180 Mg Tablet, 180 MG PO DAILY PRN for ALLERGIES, (Reported) Entered as Reported by: BURT PATEL on 12/07/20918 Furosemide (Lasix) 20 Mg Tablet, 20 MG PO DAILY, (Reported) Entered as Reported by: BURT PATEL on 12/07/20918 Gabapentin (Gabapentin) 100 Mg Capsule, 100 MG PO TID, (Reported) Entered as Reported by: BURT PATEL on 12/07/20918 Hydrochlorothiazide (Hydrochlorothiazide) 25 Mg Tablet, 25 MG PO DAILY, (Reported) Entered as Reported by: RAGHAVENDRA SHEN on 12/03/20316 Hydrocodone/Acetaminophen (Hydrocodone-Acetamin 5-325 mg) 1 Each Tablet, 1 TAB PO Q6H PRN for PAIN-MODERATE (5-7), (Reported) Entered as Reported by: BURT PATEL on 12/07/20918 Neomycin Mcclellan/Bacitrac Zn/Poly (Neosporin Ointment) 28.3 Gm Oint...g., 1 APPLIC TP BID, (Reported) Entered as Reported by: BURT PATEL on 12/07/20918 [place]-3/Dha/Epa/Fish Oil (Fish Oil 1,400 mg Softgel) 1 Each Capsule.dr, 1 EACH PO TID, (Reported) Entered as Reported by: BURT PATEL on 12/07/20918 Polyethylene Glycol 3350 (Polyethylene Glycol 3350) 17 Gm Powd.pack, 17 GM PO HS, (Reported) Entered as Reported by: RAGHAVENDRA SHEN on 12/03/20346 Potassium Chloride (Potassium Chloride) 10 Meq Tab.er.prt, 20 MEQ PO DAILY, (Reported) Entered as Reported by: RAGHAVENDRA SHEN on 12/03/20358 Ropinirole HCl (Ropinirole HCl) 1 Mg Tablet, 1 MG PO TID, (Reported) Entered as Reported by: RAGHAVENDRA SHEN on 12/03/20336 Sennosides/Docusate Sodium (Senna-S 8.6-50 mg Tablet) 1 Each Tablet, 1 EACH PO BID, (Reported) Entered as Reported by: RAGHAVENDRA SHEN on 12/03/20356 Review of Systems Review of Systems Constitutional: see HPI Nose: no symptoms reported Mouth: bloody discharge Throat: no symptoms reported Respiratory: no symptoms reported Cardiovascular: no symptoms reported Gastrointestinal: no symptoms reported Musculoskeletal: no symptoms reported All Other Systems Reviewed Negative Unless Noted: Yes Past Suifghq-Tlwbeh-Qctuov Hx Patient Social History Tobacco Use?: No Substance use?: No Alcohol Use?: No Immunizations Up To Date First/Initial COVID19 Vaccinat: 03/24 Second COVID19 Vaccination Anam: 03/24 Third COVID19 Vaccination Date: 03/24 Seasonal Allergies Seasonal Allergies: No Past Medical History Surgery/Hospitalization HX: AFIB, PARKINSONS, HTN, LOOP RECORDER, PROSTATECTOMY Surgeries: Yes Orthopedic, Prostatectomy Respiratory: No Currently Using CPAP: No Currently Using BIPAP: No Cardiac: Yes Atrial Fibrillation, High Cholesterol, Hypertension Neurological: Yes Parkinson's Disease Reproductive Disorders: No Sexually Transmitted Disease: No HIV/AIDS: No Genitourinary: Yes Prostate Problems Gastrointestinal: No Musculoskeletal: Yes Arthritis, Spasms Endocrine: No HEENT: No Loss of Vision: Denies Hearing Impairment: Hard of Hearing Cancer: Yes Prostate Did You Recieve Any Treatments: Yes Psychosocial: Yes Anxiety, Depression Integumentary: No Blood Disorders: No Adverse Reaction/Blood Tranf: No Family Medical History Patient reports no known family medical history. Heart Disease, Cancer, Hypertension, Other Conditions/Hx Physical Exam Vital Signs Vital Signs - First Documented 04/07/22 16:10 Temp 36.8 Pulse 74 Resp 18 B/P (MAP) 179/109 (132) Pulse Ox 98 O2 Delivery Room Air Height, Weight, BMI Height: 5'7.00" Weight: 170lbs. 0.0oz. 77.790979bv; 33.00 BMI Method:Estimated General Appearance: WD/WN, no apparent distress Eyes: bilateral eye normal inspection, bilateral eye PERRL, bilateral eye EOMI Nose: normal inspection Mouth/Throat: pharynx normal; No dental tenderness; other (Patient has right upper maxilla posterior molar buccal side of the tooth oozing from between tooth 2 and 3, 3 and 4. No obvious gingival or buccal lacerations. No significant swelling. No airway compromise. Widespread dental caries/decay) Neck: full range of motion, supple Respiratory: lungs clear, normal breath sounds, no respiratory distress, no accessory muscle use Neurologic/Psychiatric: alert, normal mood/affect, oriented x 3 Skin: normal color, warm/dry Progress/Results/Core Measures Results/Orders My Orders Orders - DONAVAN LUCAS MD Lidocaine/Epi 2% 1:100,000 (Xylocaine/Ep (04/07/22 16:45) Tranexamic Acid Injection (Cyklokapron I (04/07/22 16:45) Medications Given in ED Current Medications Medications Dose Ordered Sig/Heaven Route Start Time Stop Time Status Last Admin Dose Admin Lidocaine/ Epinephrine 20 ml ONCE ONCE INJ 04/07/22 16:45 04/07/22 16:46 DC 04/07/22 17:12 5 ML Tranexamic Acid 1,000 mg STK-MED ONCE .ROUTE 04/07/22 16:39 04/07/22 16:44 DC 04/07/22 17:13 1 MG Vital Signs/I&O 04/07/22 16:10 Temp 36.8 Pulse 74 Resp 18 B/P (MAP) 179/109 (132) Pulse Ox 98 O2 Delivery Room Air Blood Pressure Mean: 132 Progress Progress Note : Time: 17:28 Progress Note Patient seen and evaluated by me, 82-year-old with gingival bleeding due to trauma. Evaluation today includes physical exam. Denies any complaints of shortness of breath, nausea. He has oozing of blood between the second and third and third and fourth molars on the upper right maxilla. He is treated at first with direct pressure with gauze and then an injection of 1% lido with epi, 1 cc in the area that is bleeding. Adequate blanching of the tissue noted. Hemostasis appears to have been achieved. A cotton pledget was soaked with TXA and also applied at the area in the space just above the teeth in the upper right maxilla. This was kept in place for approximately 15 minutes. Patient's vital signs are stable. After hemostasis was achieved patient was instructed on monitoring for ongoing bleeding. Return precautions provided. He verbalized understanding. All questions are sought and answered Departure Impression Primary Impression: Gingival bleeding Additional Impression: Chronic anticoagulation Disposition: 01 HOME, SELF-CARE Condition: Improved Departure-Patient Inst. Decision time for Depature: 17:30 Referrals: BONNIE CHAU MD (PCP/Family) Primary Care Physician Patient Instructions: Bleeding Gums (DC) Add. Discharge Instructions: Monitor yourself for return of bleeding. You may have a tiny bit of blood. You can rinse your mouth with ice cold water and continue with pressure, but this will likely not be necessary. Please follow up with Dr Chau next week. Return to the Emergency Department for any new, concerning or emergent complaints. Images Mouth/Nose 1 - Copy Copies To 1: BONNIE CHAU MD, KATHRYN M MD Apr 07, 2022 16:34
[2022-04-07] MEDS ORDERED: TRANEXAMIC ACID 100 MG/ML 10 ML INJECTION ONE (16:39)
[2022-04-07] MEDS ORDERED: LIDOCAINE/EPI 2% 1:100,00 (XYLOCAINE) 20 ML VIAL INJ ONE (16:45)
[2022-04-07] MEDS ORDERED: TRANEXAMIC ACID INJECTION 1,000 MG in NS (IVPB) 50 ML IV ONE (16:45)
[2022-04-07 17:55] VITALS: BP 146/77
== END 2022-04-07 17:55 | disposition home or self-care (01) ==
LOC: EDUNIT# 16:04 → ER 16:05
DX: K06.8 Other specified disorders of gingiva and edentulous alveolar ridge (principal); I48.20 Chronic atrial fibrillation, unspecified; Z79.01 Long term (current) use of anticoagulants
CPT/HCPCS: 99281

== ENCOUNTER 2022-06-14 14:00 | Emergency (ER) | payer MEDICARE ==
[~2022-06-14] VITALS: Ht 172 cm; Wt 102.0 kg
--- NOTE | 2022-06-14 14:40 | ED Cough/URI ---
General Chief Complaint: Cough/Cold/Flu Symptoms Stated Complaint: COUGH | CONGESTION Nursing Triage Note: PT AMB TO TRIAGE PT STATES HAS BEEN COUGH AND LOW GRADE FEVER TODAY. PT WAS SENT TO ED BY DR SHER OFFICE Source: patient Exam Limitations: no limitations History of Present Illness Date Seen by Provider: Jun 14, 2022 Time Seen by Provider: 14:38 Initial Comments Patient is a 2-year-old male with a history of A-fib currently being followed by Dr. Moctezuma who presents to ED with cough, shortness of breath. Patient states symptoms started last night with a wet productive cough. Did use a nebulizer treatment with some improvement last night but did note more coughing. Patient states he had some wheezing today. Reports some upper abdominal pain with the coughing only. Some mild shortness of breath without any specific chest pain. Denies vomiting, diarrhea, headache, dizziness or fever. Up-to-date on his COVID influenza vaccines. Did have a low-grade temperature 98.9 according to patient. Patient contacted his primary care physician Dr. Chau recommended come to ER. Patient is a resident at [facility]. Allergies and Home Medications Allergies Coded Allergies: No Known Drug Allergies (Unverified , 10/20/17) Patient Home Medication List Home Medication List Reviewed: Yes Acetaminophen (Tylenol) 325 Mg Tablet, 650 MG PO Q6H PRN for PAIN-MILD (1-4), (Reported) Entered as Reported by: BURT PATEL on 12/07/20918 Albuterol Sulfate (Albuterol Sulfate) 2.5 Mg/0.5 Ml Vial.neb, 2.5 MG INH Q4H Prescribed by: ANALI VENEGAS on 06/14/22 1609 Amiodarone HCl (Amiodarone HCl) 200 Mg Tablet, 200 MG PO BID, (Reported) Entered as Reported by: HEAVENLY HERRERA on 02/15/21 1203 Amoxicillin/Potassium Clav (Amox Tr-K Clv 875-125 mg Tab) 875 Mg-125 Mg Tablet, 1 EACH PO BID Prescribed by: ANALI VENEGAS on 06/14/22 1609 Apixaban (Eliquis) 5 Mg Tablet, 5 MG PO BID, (Reported) Entered as Reported by: BURT PATEL on 12/07/20918 Aspirin (Aspirin EC) 81 Mg Tablet.dr, 81 MG PO HS, (Reported) Entered as Reported by: RAGHAVENDRA SHEN on 12/03/20335 Buspirone HCl (Buspirone HCl) 15 Mg Tablet, 15 MG PO BID, (Reported) Entered as Reported by: LIBIA PAYTON on 01/04/18 1225 Carbidopa/Levodopa (Carbidopa-Levodopa 25-100 Tab) 1 Each Tablet, 1 TAB PO TID, (Reported) Entered as Reported by: RAGHAVENDRA SHEN on 12/03/20338 Carvedilol (Carvedilol) 3.125 Mg Tablet, 3.125 MG PO BID, (Reported) Entered as Reported by: BURT PATEL on 12/07/20918 Cyclobenzaprine HCl (Cyclobenzaprine HCl) 5 Mg Tablet, 5 MG PO HS, (Reported) Entered as Reported by: RAGHAVENDRA SHEN on 12/02/202117 Diclofenac Sodium (Voltaren Arthritis Pain) 20 Gm Gel..gram., 1 GM TP Q6H PRN for PAIN-BREAKTHROUGH, (Reported) Entered as Reported by: RAGHAVENDRA SHEN on 12/03/20 040 Famotidine (Famotidine) 20 Mg Tablet, 20 MG PO BID, (Reported) Entered as Reported by: RAGHAVENDRA SHEN on 12/03/20337 Fentanyl (Fentanyl Patch 25 MCG) 1 Each Patch.td72, 25 MCG TD Q72H, (Reported) Entered as Reported by: BURT PATEL on 12/07/20918 Fexofenadine HCl (Joellen Allergy) 180 Mg Tablet, 180 MG PO DAILY PRN for ALLERGIES, (Reported) Entered as Reported by: BURT PATEL on 12/07/20918 Furosemide (Lasix) 20 Mg Tablet, 20 MG PO DAILY, (Reported) Entered as Reported by: BURT PATEL on 12/07/20918 Gabapentin (Gabapentin) 100 Mg Capsule, 100 MG PO TID, (Reported) Entered as Reported by: BURT PATEL on 12/07/20918 Hydrochlorothiazide (Hydrochlorothiazide) 25 Mg Tablet, 25 MG PO DAILY, (Reported) Entered as Reported by: RAGHAVENDRA SHEN on 12/03/20316 Hydrocodone/Acetaminophen (Hydrocodone-Acetamin 5-325 mg) 1 Each Tablet, 1 TAB PO Q6H PRN for PAIN-MODERATE (5-7), (Reported) Entered as Reported by: BURT PATEL on 12/07/20918 Neomycin Mcclellan/Bacitrac Zn/Poly (Neosporin Ointment) 28.3 Gm Oint...g., 1 APPLIC TP BID, (Reported) Entered as Reported by: BURT PATEL on 12/07/20918 Britton-3/Dha/Epa/Fish Oil (Fish Oil 1,400 mg Softgel) 1 Each Capsule.dr, 1 EACH PO TID, (Reported) Entered as Reported by: BURT PATEL on 12/07/20918 Polyethylene Glycol 3350 (Polyethylene Glycol 3350) 17 Gm Powd.pack, 17 GM PO HS, (Reported) Entered as Reported by: RAGHAVENDRA SHEN on 12/03/20346 Potassium Chloride (Potassium Chloride) 10 Meq Tab.er.prt, 20 MEQ PO DAILY, (Reported) Entered as Reported by: RAGHAVENDRA SHEN on 12/03/20358 Prednisone (Prednisone) 20 Mg Tab, 40 MG PO DAILY Prescribed by: ANALI VENEGAS on 06/14/22 1609 Ropinirole HCl (Ropinirole HCl) 1 Mg Tablet, 1 MG PO TID, (Reported) Entered as Reported by: RAGHAVENDRA SHEN on 12/03/20336 Sennosides/Docusate Sodium (Senna-S 8.6-50 mg Tablet) 1 Each Tablet, 1 EACH PO BID, (Reported) Entered as Reported by: RAGHAVENDRA SHEN on 12/03/20356 Review of Systems Review of Systems Constitutional: chills; No diaphoresis; fever, malaise, weakness EENTM: No ear pain, No blurred vision, No double vision Respiratory: cough, short of breath Cardiovascular: No chest pain Gastrointestinal: abdominal pain; No diarrhea, No nausea, No vomiting Genitourinary: No decreased output, No discharge Musculoskeletal: No back pain, No joint pain Skin: No change in color, No change in hair/nails All Other Systems Reviewed Negative Unless Noted: Yes Past Ohxsyvl-Bvygyd-Byrtjk Hx Patient Social History Tobacco Use?: No Substance use?: No Alcohol Use?: No Pt feels they are or have been: No Immunizations Up To Date Influenza Vaccine Up-to-Date: Yes; Up-to-Date First/Initial COVID19 Vaccinat: 03/24 Second COVID19 Vaccination Anam: 03/24 Third COVID19 Vaccination Date: 03/24 Seasonal Allergies Seasonal Allergies: No Past Medical History Surgery/Hospitalization HX: AFIB, PARKINSONS, HTN, LOOP RECORDER, PROSTATECTOMY Surgeries: Yes Orthopedic, Prostatectomy Respiratory: No Currently Using CPAP: No Currently Using BIPAP: No Cardiac: Yes Atrial Fibrillation, High Cholesterol, Hypertension Neurological: Yes Parkinson's Disease Reproductive Disorders: No Sexually Transmitted Disease: No HIV/AIDS: No Genitourinary: Yes Prostate Problems Gastrointestinal: No Musculoskeletal: Yes Arthritis, Spasms Endocrine: No HEENT: No Loss of Vision: Denies Hearing Impairment: Hard of Hearing Cancer: Yes Prostate Did You Recieve Any Treatments: Yes Psychosocial: Yes Anxiety, Depression Integumentary: No Blood Disorders: No Adverse Reaction/Blood Tranf: No Family Medical History Patient reports no known family medical history. Heart Disease, Cancer, Hypertension, Other Conditions/Hx Physical Exam Vital Signs - First Documented 06/14/22 06/14/22 14:11 15:06 Temp 37.5 Pulse 67 Resp 20 B/P (MAP) 156/87 (110) Pulse Ox 97 O2 Delivery Room Air Capillary Refill : Less Than 3 Seconds Height: 5'7.00" Weight: 170lbs. 0.0oz. 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, no motor/sensory deficits, alert, normal mood/affect, oriented x 3 Skin: normal color, warm/dry Progress/Results/Core Measures Suspected Sepsis SIRS Temperature: Pulse: 67 Respiratory Rate: 20 Laboratory Tests 06/14/22 14:59: White Blood Count 6.9 Blood Pressure 156 /87 Mean: 110 Laboratory Tests 06/14/22 14:59: Creatinine 1.02, Platelet Count 155, Total Bilirubin 1.3H Results/Orders Lab Results Laboratory Tests Test 06/14/22 14:22 06/14/22 14:59 Range/Units Influenza Type A (RT-PCR) Not Detected Not Detecte Influenza Type B (RT-PCR) Not Detected Not Detecte SARS-CoV-2 RNA (RT-PCR) Not Detected Not Detecte White Blood Count 6.9 4.3-11.0 10^3/uL Red Blood Count 4.03 L 4.30-5.52 10^6/uL Hemoglobin 12.6 L 13.3-17.7 g/dL Hematocrit 36 L 40-54 % Mean Corpuscular Volume 89 80-99 fL Mean Corpuscular Hemoglobin 31 25-34 pg Mean Corpuscular Hemoglobin Concent 35 32-36 g/dL Red Cell Distribution Width 13.2 10.0-14.5 % Platelet Count 155 130-400 10^3/uL Mean Platelet Volume 8.8 L 9.0-12.2 fL Immature Granulocyte % (Auto) 0 % Neutrophils (%) (Auto) 70 42-75 % Lymphocytes (%) (Auto) 14 12-44 % Monocytes (%) (Auto) 15 H 0-12 % Eosinophils (%) (Auto) 1 0-10 % Basophils (%) (Auto) 1 0-10 % Neutrophils # (Auto) 4.8 1.8-7.8 X 10^3 Lymphocytes # (Auto) 0.9 L 1.0-4.0 X 10^3 Monocytes # (Auto) 1.0 0.0-1.0 X 10^3 Eosinophils # (Auto) 0.1 0.0-0.3 10^3/uL Basophils # (Auto) 0.0 0.0-0.1 10^3/uL Immature Granulocyte # (Auto) 0.0 0.0-0.1 10^3/uL Sodium Level 141 135-145 MMOL/L Potassium Level 2.9 L 3.6-5.0 MMOL/L Chloride Level 102 98-107 MMOL/L Carbon Dioxide Level 26 21-32 MMOL/L Anion Gap 13 5-14 MMOL/L Blood Urea Nitrogen 15 7-18 MG/DL Creatinine 1.02 0.60-1.30 MG/DL Estimat Glomerular Filtration Rate 73 BUN/Creatinine Ratio 15 Glucose Level 106 H 70-105 MG/DL Calcium Level 8.5 8.5-10.1 MG/DL Corrected Calcium 8.8 8.5-10.1 MG/DL Total Bilirubin 1.3 H 0.1-1.0 MG/DL Aspartate Amino Transf (AST/SGOT) 20 5-34 U/L Alanine Aminotransferase (ALT/SGPT) 8 0-55 U/L Alkaline Phosphatase 54 40-136 U/L Troponin I < 0.028 <0.028 NG/ML B-Type Natriuretic Peptide 140.9 H <100.0 PG/ML Total Protein 6.8 6.4-8.2 GM/DL Albumin 3.6 3.2-4.5 GM/DL My Orders Orders - TARA THAO Covid 19 Inhouse Test (06/14/22 14:21) Influenza A And B By Pcr (06/14/22 14:21) Cbc With Automated Diff (06/14/22 14:36) Comprehensive Metabolic Panel (06/14/22 14:36) Bnp Evelio (06/14/22 14:36) Chest 1 View, Ap/Pa Only (06/14/22 14:36) Ekg Tracing (06/14/22 14:36) Albuterol Pre-Mix Nebs (Rt) (Proventil (06/14/22 14:45) Svn Small Volume Nebulizer (06/14/22 14:44) Potassium Chloride (Tablet) (K Dur Table (06/14/22 15:45) Potassium Chloride (Tablet) (K Dur Table (06/14/22 15:42) Troponin I Evelio (06/14/22 16:21) Medications Given in ED Vital Signs/I&O 06/14/22 06/14/22 06/14/22 14:11 15:06 16:13 Temp 37.5 Pulse 67 68 Resp 20 20 B/P (MAP) 156/87 (110) 156/87 Pulse Ox 97 97 97 O2 Delivery Room Air Room Air Capillary Refill : Less Than 3 Seconds Blood Pressure Mean: 110 ECG Comment Sinus rhythm, 62 bpm, borderline T wave abnormality anterior leads, QRS duration 117 MS, QTc 464 MS. Departure Communication (PCP) Reviewed previous ER visits, H&P's, lab testing. Patient with flulike symptoms, cough, low-grade fever. Wheezing at home. Patient denies any history of COPD but does report history of coronary artery disease, CHF, A-fib. Currently on anticoagulant, diuretic. No increasing shortness of breath. Shortness of breath is with the cough. Upper abdominal discomfort with the cough only. Due to the upper abdominal pain that patient was complaining with this cough EKG, t roponin, BNP with CBC, CMP and chest x-ray. COVID and influenza due to his symptoms were negative. CBC showed normal white blood count, hemoglobin 12.6 near his baseline. Chemistry showed a potassium of 2.9. History of hypokalemia and currently on oral potassium. Patient was given a dose of 40 mill equivalent of oral potassium. No evidence of EKG changes. EKG without evidence of ST elevation, depression, a flutter A-fib. Chest x-ray was negative for pneumonia. Patient troponin negative. BNP 140. Likely more chronic. Does not appear to be acute CHF exacerbation. Ejection fraction 2020 57. Slight diminished lung sounds. Patient Was given albuterol nebulizer treatment with improvement of his cough and shortness of breath. Chest x-ray was negative for pneumonia, pleural effusion. Does not appear fluid overloaded. Reviewing previous charts patient with a diagnosis of COPD . Due to potentially underlying COPD, cough, wheezing patient will be discharged with short burst steroids, albuterol for his nebulizer at home, and Augmentin for potential underlying COPD. Patient's complaint does not appear cardiac in nature. Chest x-ray was negative for pleural effusion, pneumothorax. Patient was not hypoxic or tachycardic or febrile. Recommend follow-up your PCP in 2 to 3 days for evaluation. If any worsening symptoms return back to ED for further evaluation. Follow-up with recheck of potassium in the next 2 or 3 days. Impression Primary Impression: Upper respiratory infection Disposition: HOME, SELF-CARE Condition: Stable Departure-Patient Inst. Decision time for Depature: 16:08 Referrals: BONNIE CHAU MD (PCP/Family) Primary Care Physician Patient Instructions: Cough, Adult (DC) Add. Discharge Instructions: Need to follow-up with your primary care physician for your potassium level 2 to 3 days. Continue taking your potassium as prescribed albuterol nebulizer treatment to help with shortness of breath and wheezing. Augmentin antibiotic and short burst steroids for your cough and wheezing All discharge instructions reviewed with patient and/or family. Voiced understanding. Scripts Albuterol Sulfate (Albuterol Sulfate) 2.5 Mg/0.5 Ml Vial.neb 2.5 MG INH Q4H for SHORTNESS OF BREATH, #30 EACH Prov: TARA THAO 06/14/22 Amoxicillin/Potassium Clav (Amox Tr-K Clv 875-125 mg Tab) 875 Mg-125 Mg Tablet 1 EACH PO BID for 7 Days, #14 TAB Prov: TARA THAO 06/14/22 Prednisone (Prednisone) 20 Mg Tab 40 MG PO DAILY for 4 Days, #8 TAB Prov: TARA THAO 06/14/22 TARA THAO Jun 14, 2022 14:40
[2022-06-14] MEDS ORDERED: RT-ALBUTEROL SULF 2.5 MG/3 ML PRE-MIX VIAL INH ONE (14:45)
[2022-06-14 15:09] LABS: BASOPHILS % (AUTO) 1 % (0-10); EOSINOPHILS # (AUTO) 0.1 10^3/uL (0.0-0.3); EOSINOPHILS % (AUTO) 1 % (0-10); HEMATOCRIT 36 % (40-54); HEMOGLOBIN 12.6 g/dL (13.3-17.7); LYMPHOCYTES # (AUTO) 0.9 X 10^3 (1.0-4.0); LYMPHOCYTES % (AUTO) 14 % (12-44); MEAN CORPUSCULAR HEMOGLOBIN 31 pg (25-34); MEAN CORPUSCULAR HGB CONC 35 g/dL (32-36); MEAN CORPUSCULAR VOLUME 89 fL (80-99); MEAN PLATELET VOLUME 8.8 fL (9.0-12.2); MONOCYTES % (AUTO) 15 % (0-12); NEUTROPHILS # (AUTO) 4.8 X 10^3 (1.8-7.8); NEUTROPHILS % (AUTO) 70 % (42-75); PLATELET COUNT 155 10^3/uL (130-400); WHITE BLOOD COUNT 6.9 10^3/uL (4.3-11.0)
[2022-06-14 15:21] LABS: ALBUMIN 3.6 GM/DL (3.2-4.5)
[2022-06-14 15:22] LABS: POTASSIUM 2.9 MMOL/L (3.6-5.0)
[2022-06-14 15:23] LABS: CALCIUM 8.5 MG/DL (8.5-10.1)
[2022-06-14 15:24] LABS: TOTAL PROTEIN 6.8 GM/DL (6.4-8.2)
[2022-06-14 15:26] LABS: BILIRUBIN,TOTAL 1.3 MG/DL (0.1-1.0)
[2022-06-14 15:28] LABS: CREATININE SERUM 1.02 MG/DL (0.60-1.30)
--- NOTE | 2022-06-14 15:32 | Diagnostic Imaging Report ---
INDICATION: Cough and fever. EXAMINATION: Portable chest at 3:11 PM. FINDINGS: There is a loop recorder projecting over the left side of the chest. The heart size and pulmonary vascularity are normal. The lungs are clear. There are no effusions or pneumothoraces. IMPRESSION: No acute abnormalities in the chest. Dictated by: Dictated on workstation # [id number]
[2022-06-14] MEDS ORDERED: KCL 20 MEQ TAB (K-DUR) PO ONE ×2 (15:42→15:45)
[2022-06-14] MEDS ORDERED: PRD20T PO (16:09)
[2022-06-14] MEDS ORDERED: AMOX1TAB12 PO (16:09)
[2022-06-14] MEDS ORDERED: ALB0.5V INH (16:09)
[2022-06-14 16:13] VITALS: BP 156/87
== END 2022-06-14 16:13 | disposition home or self-care (01) ==
LOC: EDUNIT# 14:00 → ER 14:04
DX: J06.9 Acute upper respiratory infection, unspecified (principal); I48.91 Unspecified atrial fibrillation; I11.0 Hypertensive heart disease with heart failure; I50.9 Heart failure, unspecified; E87.6 Hypokalemia; Z79.01 Long term (current) use of anticoagulants; Z79.899 Other long term (current) drug therapy; Z20.822 Contact with and (suspected) exposure to COVID-19
CPT/HCPCS: 36415; 71045; 80053; 83880; 84484; 85025; 87636; 93005; 94640

== ENCOUNTER 2022-10-01 08:41 | Observation (INO) | payer MEDICARE ==
[~2022-10-01] VITALS: Ht 175.3 cm; Wt 101.9 kg
[~2022-10-01 08:41] MED LIST changes: +ALB0.5V INH; +AMOX1TAB12 PO; +PRD20T PO
[2022-10-01] MEDS ORDERED: FAMOTIDINE 20 MG TABLET PO PRN (09:00)
[2022-10-01] MEDS ORDERED: dilTIAZem ER 120 MG CAPSULE PO SCH (09:00)
[2022-10-01] MEDS ORDERED: PHARMACY TO DOSE IV ONE (09:00)
[2022-10-01] MEDS ORDERED: ASPIRIN enteric coated 81MG TABLET PO SCH (09:00)
--- NOTE | 2022-10-01 09:04 | Cardiology History & Physical ---
HPI-Cardiology Cardiology Consultation Date of Consultation 10/01/22 Date of Admission Time Seen by Provider: 08:50 Indication: PAF, Sotalol initiation HPI Patient is an 82 y/o male with hx of PAF. Noted to have increased episodes of atrial fibrillation on his loop recorder. Denies any chest pain. C/o increased episodes of palpitations lately PMH-Cardiology Immunizations Up To Date Date of Influenza Vaccine: Nov 02, 2020 Seasonal Allergies Seasonal Allergies: No Surgeries Yes Respiratory No Cardiovascular Yes Atrial Fibrillation, Hypertension Neurological Yes Parkinson's Disease Reproductive System Hx Reproductive Disorders: No Sexually Transmitted Disease: No HIV/AIDS: No Genitourinary Yes Prostate Problems Gastrointestinal No Musculoskeletal Yes Arthritis, Spasms Endocrine No HEENT No Loss of Vision: Denies Hearing Impairment: Hard of Hearing Cancer Yes Prostate Did You Recieve Any Treatments: Yes Psychosocial Yes Anxiety, Depression Integumentary No Blood Transfusions No Adverse Rxn to Transfusion: No Social History Patient Social History Employed/Student: retired Smoking: Never smoker Family Hx Significant Family History: Heart Disease, Cancer, Hypertension, Other Conditions/Hx Family History: Patient reports no known family medical history. ROS-Cardiology Review of Systems General: No Chills, No Night Sweats, No Fatigue, No Malaise, No Appetite, No Other HEENT: No Head Aches, No Visual Changes, No Eye Pain, No Ear Pain, No Dysphasia, No Sinus Congestion, No Post Nasal Drip, No Sore Throat, No Other Pulmonary: No Dyspnea, No Cough, No Pleuritic Chest Pain, No Other Cardiovascular: Palpitations; No: Chest Pain, Edema Gastrointestinal: No: Nausea, Vomiting, Abdominal Pain, Diarrhea, Constipation, Melena, Hematochezia, Other Genitourinary: No Dysuria, No Frequency, No Incontinence, No Hematuria, No Retention, No Other Musculoskeletal: No: other, neck pain, shoulder pain, arm pain, back pain, hand pain, leg pain, foot pain Home Medications & Allergies Allergies: Coded Allergies: No Known Drug Allergies (Unverified , 10/20/17) Home Medication List Reviewed: Yes Exam-Cardiology Vital Signs Vital Signs Date Time Temp Pulse Resp B/P (MAP) Pulse Ox O2 Delivery O2 Flow Rate FiO2 10/01/22 10:53 65 10/01/22 09:00 36.0 18 170/93 (118) 94 Room Air Exam General Appearance: Alert, Oriented X3, Cooperative, No Acute Distress HEENT: Atraumatic, PERRLA Respiratory: Clear to Auscultation, Normal Air Movement Cardiovascular: Regular Rate Abdominal: Normal Bowel Sounds, Soft, No Tenderness Extremities: No Edema, Normal Pulses Skin: No Rashes, No Significant Lesion Neuro: Normal Gait, Normal Speech Psych/Mental Status: Mental Status NL, Mood NL Results Labs Labs Laboratory Tests 10/01/22 09:02: White Blood Count 4.7, Red Blood Count 4.82, Hemoglobin 14.5, Hematocrit 42, Mean Corpuscular Volume 87, Mean Corpuscular Hemoglobin 30, Mean Corpuscular Hemoglobin Concent 35, Red Cell Distribution Width 13.3, Platelet Count 150, Mean Platelet Volume 9.0, Sodium Level 142, Potassium Level 3.4L, Chloride Level 102, Carbon Dioxide Level 30, Anion Gap 10, Blood Urea Nitrogen 20H, Creatinine 1.05, Estimat Glomerular Filtration Rate 70, BUN/Creatinine Ratio 19, Glucose Level 94, Calcium Level 9.1, Corrected Calcium 8.9, Magnesium Level 2.2, Total Bilirubin 1.1H, Aspartate Amino Transf (AST/SGOT) 24, Alanine Aminotransferase (ALT/SGPT) 21, Alkaline Phosphatase 48, Total Protein 7.8, Albumin 4.2 A/P-Cardiology Admission Diagnosis PAF HTN HLP Parkinsons Admission Status: Observation Assessment/Plan Paroxysmal atrial fibrillation, s/p NANCY with Cardioversion and LINq implantation on 12/07/20. Currently in SR. Was referred to and seen by Dr. Zelaya in Apr 2022. Amiodarone was discontinued, hoping to help improve balance issues. Patient was doing well without any further episodes of atrial fibrillation, last loop monitor interrogation on September 08, 2022 showed 76 episodes of atrial fibrillation with a heart rate ranging up to 200. I will admit him to the hospital this morning and start him on sotalol loading treatment Hypertension, better control at this time. Continue to monitor Echocardiogram done in December 07, 2020 showing normal left ventricular size EF 55-65, dilated left atrium with mild MR, TR. Chest pain, nonspecific etiology, multiple risk factors for coronary artery disease. Stress test done in November 2019 showing no significant ischemia or infarction, EF 57%. Continue to monitor Hyperlipidemia, I will evaluate lipid profile and metabolic profile History of dehydration and hyponatremia, I will evaluate metabolic profile Parkinson disease, still having tremors. Managed by primary care physician Mild bilateral carotid stenosis, ultrasound was done in May 2021, continue to monitor Arthritis, neck pain. Managed by primary care physician This is Елена Dixon PA-C, as a scribe for Dr. Moctezuma. Patient was seen and evaluated with Елена, I interviewed and examined the patient, discussed the management plan and length, agree with the current scribed note Patient was admitted for IV loading of sotalol Noted to have mild hypokalemia which was replaced Monitor electrolyte closely, blood pressure is poorly controlled. Restarted on Cardizem I stopped Coreg, add losartan 50 mg daily and monitor ЕЛЕНА GORDON Oct 01, 2022 09:04 LEON MOCTEZUMA MD Oct 01, 2022 11:01
[2022-10-01 09:11] LABS: HEMATOCRIT 42 % (40-54); HEMOGLOBIN 14.5 g/dL (13.3-17.7); MEAN CORPUSCULAR HEMOGLOBIN 30 pg (25-34); MEAN CORPUSCULAR HGB CONC 35 g/dL (32-36); MEAN CORPUSCULAR VOLUME 87 fL (80-99); PLATELET COUNT 150 10^3/uL (130-400); WHITE BLOOD COUNT 4.7 10^3/uL (4.3-11.0)
[2022-10-01 09:20] LABS: ALBUMIN 4.2 GM/DL (3.2-4.5)
[2022-10-01 09:21] LABS: POTASSIUM 3.4 MMOL/L (3.6-5.0)
[2022-10-01 09:22] LABS: CALCIUM 9.1 MG/DL (8.5-10.1)
[2022-10-01 09:23] LABS: TOTAL PROTEIN 7.8 GM/DL (6.4-8.2)
[2022-10-01 09:25] LABS: BILIRUBIN,TOTAL 1.1 MG/DL (0.1-1.0)
[2022-10-01 09:27] LABS: CREATININE SERUM 1.05 MG/DL (0.60-1.30)
[2022-10-01 09:30] LABS: MAGNESIUM 2.2 MG/DL (1.6-2.4)
[2022-10-01] MEDS: FUROSEMIDE 20 MG (LASIX) TAB PO SCH (09:42)
[2022-10-01] MEDS ORDERED: NS IV NR (10:30)
[2022-10-01] MEDS ORDERED: KCL 20 MEQ TAB (K-DUR) PO ONE (10:30)
[2022-10-01] MEDS ORDERED: SOTALOL IV NR (10:30)
[2022-10-01] MEDS: LOSARTAN 50 MG (COZAAR) TAB PO SCH (11:21)
[2022-10-01] MEDS ORDERED: MELA5TAB14 PO (11:29)
[2022-10-01] MEDS ORDERED: RIVA20TA PO (11:29)
[2022-10-01] MEDS ORDERED: CARB1DRO36 OU (11:29)
[2022-10-01] MEDS ORDERED: CARV6.252 PO (11:29)
[2022-10-01] MEDS ORDERED: CALC600T91 PO (11:29)
[2022-10-01] MEDS ORDERED: LOPE-175 PO (11:29)
[2022-10-01] MEDS ORDERED: MINE3.5O20 OP (11:29)
[2022-10-01] MEDS ORDERED: HYPR10GE5 OP (11:29)
[2022-10-01] MEDS ORDERED: EYEL1MED OS (11:29)
[2022-10-01] MEDS ORDERED: FURO20TA4 PO (11:29)
[2022-10-01] MEDS ORDERED: OMEG1CAP24 PO (11:29)
[2022-10-01] MEDS ORDERED: POTA-160 PO (11:29)
[2022-10-01] MEDS ORDERED: DILT-27 PO (11:29)
[2022-10-01] MEDS ORDERED: FENT1PAT8 TD (11:29)
[2022-10-01] MEDS ORDERED: [UNRECOGNIZED DRUG - CODE] OS (11:29)
[2022-10-01] MEDS ORDERED: CARB-300 PO (11:29)
[2022-10-01] MEDS ORDERED: DICLOFENAC 1% GEL 100 GM TUBE TP PRN (13:00)
[2022-10-01] MEDS ORDERED: NON-FORMULARY MEDICATION 1 EA EA (Fexofenadine HCl (Allegra Allergy) 180 MG) PO PRN (13:00)
[2022-10-01] MEDS ORDERED: LOPERAMIDE 2 MG (IMODIUM) TABLET PO PRN (13:00)
[2022-10-01] MEDS: GABAPENTIN 100 MG (NEURONTIN) CAP PO SCH ×2 (13:06→21:19)
[2022-10-01] MEDS: SINEMET 25/100 (CARBIDOPA/LEVODOPA) TAB PO SCH (13:06)
[2022-10-01] MEDS: rOPINIRole 1 MG (REQUIP) TABLET PO SCH ×2 (13:06→21:19)
[2022-10-01] MEDS: ACETAMINOPHEN 325 MG TABLET PO PRN ×2 (13:07→19:51)
[2022-10-01] MEDS ORDERED: LORATADINE (CLARITIN) 10 MG TAB PO PRN (13:15)
[2022-10-01] MEDS: HYDROcodone/ACETAMINOPHEN 5 MG/325 MG TABLET PO PRN ×2 (15:45→21:18)
[2022-10-01] MEDS: SOTALOL 80 MG (BETAPACE) TAB PO SCH (16:02)
[2022-10-01] MEDS ORDERED: RIVAROXABAN 20 MG TABLET (XARELTO) PO SCH (17:00)
[2022-10-01] MEDS ORDERED: polyethylene glycoL POWDER 17 GM (MIRALAX) PACK PO SCH (21:00)
[2022-10-01] MEDS ORDERED: SINEMET 25/100 (CARBIDOPA/LEVODOPA) TAB PO SCH (21:00)
[2022-10-01] MEDS ORDERED: MELATONIN 10 MG TABLET PO SCH (21:00)
[2022-10-01] MEDS ORDERED: CYCLOBENZAPRINE 10 MG TABLET PO SCH (21:00)
[2022-10-01] MEDS ORDERED: ARTIFICIAL TEARS OU SCH (21:00)
[2022-10-01] MEDS: SENNA W/DOCUSATE (SENOKOT S) TABLET PO SCH (21:18)
[2022-10-01] MEDS: busPIRone 15 MG TABLET PO SCH (21:19)
[2022-10-02] MEDS: SOTALOL 80 MG (BETAPACE) TAB PO SCH (03:51)
[2022-10-02] MEDS: HYDROcodone/ACETAMINOPHEN 5 MG/325 MG TABLET PO PRN (03:51)
[2022-10-02 07:18] LABS: CALCIUM 8.6 MG/DL (8.5-10.1); CREATININE SERUM 1.04 MG/DL (0.60-1.30); POTASSIUM 3.4 MMOL/L (3.6-5.0)
[2022-10-02] MEDS ORDERED: LOSA50TA63 PO (08:04)
[2022-10-02] MEDS ORDERED: SOTA80TA62 PO (08:04)
--- NOTE | 2022-10-02 08:05 | Discharge Inst-Post CATH ---
Discharge Inst-CATH/EP Problems Reviewed?: Yes Post Cardiac Cath/EP D/C Inst Follow Up/Plan Appointment with Dr Moctezuma in one week <b>CARDIAC CATH/EP PROCEDURE DISCHARGE INSTRUCTIONS</b> ACTIVITY * Go Home directly and rest. * Limit activity of the leg (or wrist if it was used) for 7 days including aerobics, swimming, jogging, bicycling, etc. * Restrict stair-climbing for 7 days if possible, if not, climb up with your non-cath leg, then bring together on the same step. * Avoid lifting, pushing, pulling or excessive movement of the affected extremity for 7 days. * Customary sexual activity may be resumed after 2 days-use caution not to use a position that strains or causes pain to the affected extremity. * No driving for 24 hours. * NO SMOKING. * Avoid straining for bowel movements for 7 days. * Gentle walking on level ground is allowed. * Returning to work will depend on the type of procedure and the results. Your doctor will discuss this with you. CALL YOUR DOCTOR FOR ANY OF THE FOLLOWING: *If bleeding from the puncture site occurs- Apply gentle pressure to site with clean cloth and call your doctor or EMS. * If a knot or lump forms under the skin, increases in size, or causes pain. * If bruising appears to be worsening or moving further down your leg instead of disappearing. * Temperature above 101 F. CARE OF YOUR GROIN INCISION; * Bruising or purple discoloration of the skin near the puncture site is common. * You may shower only, no bathtub bathing for 5 days. Be careful to avoid slipping as your leg may feel stiff. * If a closure device was used on your femoral artery, please see the attached guide regarding care of the device and your leg. * Leave dressing on FOR 24 hours. CARE OF YOUR WRIST INCISION; * Bruising or purple discoloration of the skin near the puncture site is common. * You may shower. * DO NOT submerge wrist. * Leave dressing on FOR 24 hours. LEON MOCTEZUMA MD Oct 02, 2022 08:05
--- NOTE | 2022-10-02 08:05 | Cardiology Progress Note ---
Subjective Date Seen by Provider: Oct 02, 2022 Time Seen by Provider: 08:00 Subjective/Events-last exam Patient was seen at bedside, laying down comfortably, feeling better, heart rate is better Review of Systems General: No Chills, No Night Sweats, No Fatigue, No Malaise, No Appetite, No O ther HEENT: No Head Aches, No Visual Changes, No Eye Pain, No Ear Pain, No Dys phasia, No Sinus Congestion, No Post Nasal Drip, No Sore Throat, No Other Pulmonary: No Dyspnea, No Cough, No Pleuritic Chest Pain, No Other Cardiovascular: No: Chest Pain, Palpitations, Orthopnea, Paroxysmal Noc. Dyspnea, Edema, Lt Headedness, Other Objective-Cardiology Exam Last Set of Vital Signs Vital Signs 10/02/22 10/02/22 10/02/22 10/02/22 03:48 05:00 07:00 07:07 Temp 36.1 Pulse 45 Resp 7 B/P (MAP) 121/76 (91) Pulse Ox 95 O2 Delivery Room Air I&O Intake and Output 10/02/22 00:00 Intake Total 1500 ml Output Total 1725 ml Balance -225 ml Intake Oral 1400 ml IV Total 100 ml Output Urine Total 1725 ml General: Alert, Oriented X3, Cooperative, No Acute Distress HEENT: Atraumatic, PERRLA Lungs: Clear to Auscultation, Normal Air Movement Heart: Regular Rate, Normal S1, Normal S2 Abdomen: Normal Bowel Sounds, Soft, No Tenderness Extremities: No Clubbing, No Cyanosis, No Edema, Normal Pulses Skin: No Rashes, No Significant Lesion Neuro: Normal Gait, Normal Speech Psych/Mental Status: Mental Status NL, Mood NL Results Lab Laboratory Tests 10/01/22 09:02 10/02/22 06:52 A/P-Cardiology Admission Diagnosis PAF HTN HLP Parkinsons Assessment/Plan Paroxysmal atrial fibrillation, s/p NANCY with Cardioversion and LINq implantation on 12/07/20. Currently in SR. Was referred to and seen by Dr. Zelaya in Apr 2022. Amiodarone was discontinued, hoping to help improve balance issues. Patient was doing well without any further episodes of atrial fibrillation, last loop monitor interrogation on September 08, 2022 showed 76 episodes of atrial fibrillation with a heart rate ranging up to 200. Tolerated sotalol loading dose well. Sinus node dysfunction, bradycardia, DC Cardizem and continue on sotalol and evaluate tolerance and response Hypertension, better control at this time. Continue to monitor Echocardiogram done in December 07, 2020 showing normal left ventricular size EF 55-65, dilated left atrium with mild MR, TR. Chest pain, nonspecific etiology, multiple risk factors for coronary artery disease. Stress test done in November 2019 showing no significant ischemia or infarction, EF 57%. Continue to monitor Hyperlipidemia, I will evaluate lipid profile and metabolic profile History of dehydration and hyponatremia, I will evaluate metabolic profile Parkinson disease, still having tremors. Managed by primary care physician Mild bilateral carotid stenosis, ultrasound was done in May 2021, continue to monitor Arthritis, neck pain. Managed by primary care physician LEON MINER MD Oct 02, 2022 08:04
[2022-10-02] MEDS ORDERED: CALCIUM CARBONATE 600 MG TABLET PO SCH (09:00)
[2022-10-02] MEDS: LOSARTAN 50 MG (COZAAR) TAB PO SCH (09:01)
[2022-10-02] MEDS: SINEMET 25/100 (CARBIDOPA/LEVODOPA) TAB PO SCH (09:02)
[2022-10-02] MEDS: FUROSEMIDE 20 MG (LASIX) TAB PO SCH (09:02)
[2022-10-02] MEDS: rOPINIRole 1 MG (REQUIP) TABLET PO SCH (09:02)
[2022-10-02] MEDS: busPIRone 15 MG TABLET PO SCH (09:02)
[2022-10-02] MEDS: SENNA W/DOCUSATE (SENOKOT S) TABLET PO SCH (09:02)
[2022-10-02] MEDS: GABAPENTIN 100 MG (NEURONTIN) CAP PO SCH (09:02)
--- NOTE | 2022-10-02 10:53 | Tele-ICU Progress Note ---
Progress Note Video assessment done , Hemodynamically stable Available charting reviewed, discussed with RN NO TELE-ICU CONSULT REQUESTED CONTINUE TO MONITOR PER USUAL TELE-ICU PROTOCOL No need for Tele-ICU interventions Plans as delineated by bedside physicians / consultants Focused Exam Height, Weight, BMI Height: 5'7.00" Weight: 170lbs. 0.0oz. 77.019946ma; 33.15 BMI Method:Estimated OLIVE FITZPATRICK MD Oct 02, 2022 10:52
[2022-10-02] MEDS ORDERED: ASPIRIN enteric coated 81MG TABLET PO SCH (21:00)
[2022-10-03] MEDS ORDERED: [UNRECOGNIZED DRUG - REMARK] TP SCH (08:59)
[2022-10-03] MEDS ORDERED: KCL 10 MEQ TAB (MICRO K) PO SCH (09:00)
== END 2022-10-02 10:21 | disposition home or self-care (01) ==
LOC: UNDOADMOB 08:41 → ICU 08:41 → UNDODISOB 10-02 10:21
PROVIDERS: ADMIT Internal Medicine Cardiovascular Disease; ATTEND Internal Medicine Cardiovascular Disease
DX: I48.0 Paroxysmal atrial fibrillation (principal); I10 Essential (primary) hypertension; G20 Parkinson's disease; I08.1 Rheumatic disorders of both mitral and tricuspid valves; I65.23 Occlusion and stenosis of bilateral carotid arteries; E78.2 Mixed hyperlipidemia; M19.90 Unspecified osteoarthritis, unspecified site; M54.2 Cervicalgia; Z87.19 Personal history of other diseases of the digestive system; Z79.899 Other long term (current) drug therapy
CPT/HCPCS: 80048; 80053; 83735; 85027; 87081; 93005 ×2; 96365; G0378; G0379; 36415

== ENCOUNTER 2022-11-07 15:59 | Emergency (ER) | payer MEDICARE ==
[~2022-11-07 15:59] MED LIST changes: +CALC600T91 PO; +CARB-300 PO; +CARB1DRO36 OU; +DILT-27 PO; +EYEL1MED OS; +HYPR10GE5 OP; +LOPE-175 PO; +LOSA50TA63 PO; +MELA5TAB14 PO; +MINE3.5O20 OP; +RIVA20TA PO; +ROPI0.5T37 PO; -ROPI0.5T4 PO; -ROPI1TAB PO; +ROPI1TAB46 PO; +SOTA80TA62 PO; +[UNRECOGNIZED DRUG - CODE] OS
[2022-11-07 16:15] LABS: BASOPHILS # (AUTO) 0.1 10^3/uL (0.0-0.1); BASOPHILS % (AUTO) 1 % (0-10); EOSINOPHILS # (AUTO) 0.2 10^3/uL (0.0-0.3); EOSINOPHILS % (AUTO) 3 % (0-10); HEMATOCRIT 43 % (40-54); HEMOGLOBIN 14.9 g/dL (13.3-17.7); LYMPHOCYTES # (AUTO) 1.7 10^3/uL (1.0-4.0); LYMPHOCYTES % (AUTO) 33 % (12-44); MEAN CORPUSCULAR HEMOGLOBIN 31 pg (25-34); MEAN CORPUSCULAR HGB CONC 35 g/dL (32-36); MEAN CORPUSCULAR VOLUME 89 fL (80-99); MEAN PLATELET VOLUME 8.9 fL (9.0-12.2); MONOCYTES # (AUTO) 0.7 10^3/uL (0.0-1.0); MONOCYTES % (AUTO) 14 % (0-12); NEUTROPHILS # (AUTO) 2.5 10^3/uL (1.8-7.8); NEUTROPHILS % (AUTO) 49 % (42-75); PLATELET COUNT 147 10^3/uL (130-400); WHITE BLOOD COUNT 5.1 10^3/uL (4.3-11.0)
[2022-11-07 16:32] LABS: ALANINE AMINOTRANSFERASE 6 U/L (0-55); ALBUMIN 4.3 GM/DL (3.2-4.5); ALKALINE PHOSPHATASE 46 U/L (40-136); BUN/CREATININE RATIO 16; CALCIUM 9.5 MG/DL (8.5-10.1); CARBON DIOXIDE 28 MMOL/L (21-32); CHLORIDE 102 MMOL/L (98-107); CREATININE SERUM 1.09 MG/DL (0.60-1.30); GFR ESTIMATED 67; GLUCOSE 99 MG/DL (70-105); INR 1.2 (0.8-1.4); MAGNESIUM 2.2 MG/DL (1.6-2.4); POTASSIUM 3.1 MMOL/L (3.6-5.0); PROTHROMBIN TIME PATIENT 15.7 SEC (12.2-14.7); SODIUM 141 MMOL/L (135-145); TOTAL PROTEIN 7.6 GM/DL (6.4-8.2)
--- NOTE | 2022-11-07 16:43 | ED Chest Pain ---
General Chief Complaint: Chest Pain Stated Complaint: CHEST PAIN Nursing Triage Note: PT AMB TO [facility] 5 WITH C/O CP FOR APPROX 1 WEEK OFF AND ON. PT REPORTS THE PAIN IS OVER HIS L THOMAS AREA. PT DENIES AN N/V Source: patient Exam Limitations: no limitations History of Present Illness Date Seen by Provider: Nov 07, 2022 Time Seen by Provider: 16:06 Initial Comments 82-year-old male presents to the ER with complaint of intermittent left-sided chest pain for the last week. Reports that the last episode started this morning and subsided around 2 PM. States it has not returned since then. He describes the pain as a muscle soreness. States he does do a lot of lifting his . He states the pain occurs intermittently, he can just be resting when it starts hurting. Denies sweating with the pain, shortness of air, radiation of the pain. Does state that he had 1 episode of vomiting last night when he got the pain. Patient also complaining of lightheaded and dizziness at this time. He is scheduled to have a stress test next Saturday. Past medical history includes hypertension, paroxysmal A-fib, Parkinson's disease. He denies current fever, headache, cough, abdominal pain, diarrhea. Allergies and Home Medications Allergies Coded Allergies: No Known Drug Allergies (Unverified , 10/20/17) Patient Home Medication List Home Medication List Reviewed: Yes Acetaminophen (Tylenol) 325 Mg Tablet, 650 MG PO Q6H PRN for PAIN-MILD (1-4), (Reported) Entered as Reported by: BURT PATEL on 12/07/20 0919 Aspirin (Aspirin EC) 81 Mg Tablet.dr, 81 MG PO HS, (Reported) Entered as Reported by: RAGHAVENDRA SHEN on 12/03/20 0336 Buspirone HCl (Buspirone HCl) 15 Mg Tablet, 15 MG PO BID, (Reported) Entered as Reported by: LIBIA PAYTON on 01/04/18 1225 Calcium Carbonate (Calcium) 600 Mg Calcium (1500 Mg) Tablet, 600 MG PO DAILY, (Reported) Entered as Reported by: FEROZ ROPER on 10/01/22 1129 Carbidopa/Levodopa (Carbidopa-Levodopa 25-100 Tab) 25 Mg-100 Mg Tablet, 1 TAB PO HS, (Reported) Entered as Reported by: RAGHAVENDRA SHEN on 12/03/20 033 Carbidopa/Levodopa (Sinemet 25-100 mg Tablet) 25 Mg-100 Mg Tablet, 2 EACH PO 0800,1400, (Reported) Entered as Reported by: FEROZ ROPER on 10/01/22 112 Carboxymethyl/Gly/Poly80/Pf (Refresh Optive [place]-3 Drops) 0.5 %-1 %-0.5 % Droperette, 1 DROP OU Q2H, (Reported) Entered as Reported by: FEROZ ROPER on 10/01/221128 Carboxymethylcell/Hypromellose (Cvs Lubricant Gel Eye Drops) 0.25 %-0.3 % Drp.lq.gel, 1 DROPS OS HS, (Reported) Entered as Reported by: FEROZ ROPER on 10/01/221128 Cyclobenzaprine HCl (Cyclobenzaprine HCl) 5 Mg Tablet, 5 MG PO HS, (Reported) Entered as Reported by: RAGHAVENDRA SHEN on 12/02/202117 Diclofenac Sodium (Voltaren Arthritis Pain) 20 Gm Gel..gram., 1 GM TP Q6H PRN for PAIN-BREAKTHROUGH, (Reported) Entered as Reported by: RAGHAVENDRA SHEN on 12/03/20 0408 Eyelid Cleanser Combination #5 (Ocusoft Lid Scrub) 1 Each Med..pad, 1 EACH OS B ID, (Reported) Entered as Reported by: FEROZ ROPER on 10/01/221128 Famotidine (Famotidine) 20 Mg Tablet, 20 MG PO BID, (Reported) Entered as Reported by: RAGHAVENDRA SHEN on 12/03/20 033 Fentanyl (Fentanyl Patch 25 MCG) 25 Mcg/Hour Patch.td72, 25 MCG TD Q72H, (Reported) Entered as Reported by: FEROZ ROPER on 10/01/221128 Fexofenadine HCl (Joellen Allergy) 180 Mg Tablet, 180 MG PO DAILY PRN for ALLER GY SYMPTOMS, (Reported) Entered as Reported by: BURT PATEL on 12/07/20 0919 Furosemide (Furosemide) 20 Mg Tablet, 20 MG PO DAILY, (Reported) Entered as Reported by: FEROZ ROPER on 10/01/221128 Gabapentin (Gabapentin) 100 Mg Capsule, 100 MG PO TID, (Reported) Entered as Reported by: BURT PATEL on 12/07/20 09 Hydrochlorothiazide (Hydrochlorothiazide) 25 Mg Tablet, 25 MG PO DAILY, (Reported) Entered as Reported by: RAGHAVENDRA SHEN on 12/03/20316 Hydrocodone/Acetaminophen (Hydrocodone-Acetamin 5-325 mg) 1 Each Tablet, 1 TAB PO Q6H PRN for PAIN-MODERATE (5-7), (Reported) Entered as Reported by: BURT PATEL on 12/07/20918 Loperamide HCl (Imodium A-D) 2 Mg Capsule, 4 MG PO Q6H PRN for DIARRHEA, (Reported) Entered as Reported by: FEROZ ROPER on 10/01/221128 Losartan Potassium (Losartan Potassium) 50 Mg Tablet, 50 MG PO DAILY Prescribed by: LEON MOCTEZUMA on 10/02/22 0804 Melatonin (Melatonin) 5 Mg Tablet, 10 MG PO HS, (Reported) Entered as Reported by: FEROZ ROPER on 10/01/221128 [place]-3 Fatty Acids/Fish Oil ([place] 3 Fish Oil Softgel) 684 Mg-1,200 Mg Capsule.dr, 2 EACH PO TID, (Reported) Entered as Reported by: FEROZ ROPER on 10/01/221128 Petrolat,Wht/Min Oil/Sod Chl (Refresh P.m. Ointment P-F) 42.5 %-57.3 % Oint...g., 1 APPLIC OP HS, (Reported) Entered as Reported by: FEROZ ROPER on 10/01/221128 Polyethylene Glycol 3350 (Polyethylene Glycol 3350) 17 Gm Powd.pack, 17 GM PO HS, (Reported) Entered as Reported by: RAGHAVENDRA SHEN on 12/03/20 034 Potassium Chloride (Klor-Con 10) 10 Meq Tablet.er, 10 MEQ PO MO,WE,FR, (Reported) Entered as Reported by: FEROZ ROPER on 10/01/221128 Rivaroxaban (Xarelto) 20 Mg Tablet, 20 MG PO 1700, (Reported) Entered as Reported by: FEROZ ROPER on 10/01/221128 Ropinirole HCl (Ropinirole HCl) 1 Mg Tablet, 1 MG PO TID, (Reported) Entered as Reported by: RAGHAVENDRA SHEN on 12/03/20 0337 Sennosides/Docusate Sodium (Senna-S 8.6-50 mg Tablet) 1 Each Tablet, 1 EACH PO BID, (Reported) Entered as Reported by: RAGHAVENDRA SHEN on 12/03/20 0357 Sotalol HCl (Sotalol) 80 Mg Tablet, 80 MG PO BID Prescribed by: LEON MOCTEZUMA on 10/02/22 0804 Review of Systems Review of Systems Constitutional: see HPI Past Uaeezbi-Ysehpb-[place] Hx Patient Social History Tobacco Use?: No Use of E-Cig and/or Vaping dev: No Substance use?: No Alcohol Use?: No Pt feels they are or have been: No Immunizations Up To Date First/Initial COVID19 Vaccinat: 03/24 Second COVID19 Vaccination Anam: 03/24 Third COVID19 Vaccination Date: 03/24 Seasonal Allergies Seasonal Allergies: No Past Medical History Surgery/Hospitalization HX: AFIB, PARKINSONS, HTN, LOOP RECORDER, PROSTATECTOMY, HLD, GERD Surgeries: Yes Orthopedic, Prostatectomy Respiratory: No Currently Using CPAP: No Currently Using BIPAP: No Cardiac: Yes Atrial Fibrillation, High Cholesterol, Hypertension Neurological: Yes Parkinson's Disease Reproductive Disorders: No Sexually Transmitted Disease: No HIV/AIDS: No Genitourinary: Yes Prostate Problems Gastrointestinal: No Musculoskeletal: Yes Arthritis, Spasms Endocrine: No HEENT: No Loss of Vision: Denies Hearing Impairment: Hard of Hearing Cancer: Yes Prostate Did You Recieve Any Treatments: Yes Psychosocial: Yes Anxiety, Depression Integumentary: No Blood Disorders: No Adverse Reaction/Blood Tranf: No Family Medical History Patient reports no known family medical history. Heart Disease, Cancer, Hypertension, Other Conditions/Hx Physical Exam Vital Signs Vital Signs - First Documented 11/07/22 11/07/22 16:03 17:21 Temp 36.8 Pulse 82 Resp 18 B/P (MAP) 184/108 (133) Pulse Ox 99 O2 Delivery Room Air Capillary Refill : Height, Weight, BMI Height: 5'7.00" Weight: 170lbs. 0.0oz. 77.096662zz; 33.15 BMI Method:Estimated General Appearance: No Apparent Distress, WD/WN Neck: Normal Inspection, Supple Respiratory: Lungs Clear, Normal Breath Sounds, No Accessory Muscle Use, No Respiratory Distress Cardiovascular: Regular Rate, Rhythm Extremity: Normal Inspection Neurologic/Psychiatric: Alert, No Motor/Sensory Deficits Skin: Normal Color, Warm/Dry Progress/Results/Core Measures Results/Orders Lab Results Laboratory Tests Test 11/07/22 16:08 Range/Units White Blood Count 5.1 4.3-11.0 10^3/uL Red Blood Count 4.84 4.30-5.52 10^6/uL Hemoglobin 14.9 13.3-17.7 g/dL Hematocrit 43 40-54 % Mean Corpuscular Volume 89 80-99 fL Mean Corpuscular Hemoglobin 31 25-34 pg Mean Corpuscular Hemoglobin Concent 35 32-36 g/dL Red Cell Distribution Width 13.3 10.0-14.5 % Platelet Count 147 130-400 10^3/uL Mean Platelet Volume 8.9 L 9.0-12.2 fL Immature Granulocyte % (Auto) 0 % Neutrophils (%) (Auto) 49 42-75 % Lymphocytes (%) (Auto) 33 12-44 % Monocytes (%) (Auto) 14 H 0-12 % Eosinophils (%) (Auto) 3 0-10 % Basophils (%) (Auto) 1 0-10 % Neutrophils # (Auto) 2.5 1.8-7.8 10^3/uL Lymphocytes # (Auto) 1.7 1.0-4.0 10^3/uL Monocytes # (Auto) 0.7 0.0-1.0 10^3/uL Eosinophils # (Auto) 0.2 0.0-0.3 10^3/uL Basophils # (Auto) 0.1 0.0-0.1 10^3/uL Immature Granulocyte # (Auto) 0.0 0.0-0.1 10^3/uL Prothrombin Time 15.7 H 12.2-14.7 SEC INR Comment 1.2 0.8-1.4 Activated Partial Thromboplast Time 42 H 24-35 SEC Sodium Level 141 135-145 MMOL/L Potassium Level 3.1 L 3.6-5.0 MMOL/L Chloride Level 102 98-107 MMOL/L Carbon Dioxide Level 28 21-32 MMOL/L Anion Gap 11 5-14 MMOL/L Blood Urea Nitrogen 17 7-18 MG/DL Creatinine 1.09 0.60-1.30 MG/DL Estimat Glomerular Filtration Rate 67 BUN/Creatinine Ratio 16 Glucose Level 99 70-105 MG/DL Calcium Level 9.5 8.5-10.1 MG/DL Corrected Calcium 9.3 8.5-10.1 MG/DL Magnesium Level 2.2 1.6-2.4 MG/DL Total Bilirubin 1.0 0.1-1.0 MG/DL Aspartate Amino Transf (AST/SGOT) 21 5-34 U/L Alanine Aminotransferase (ALT/SGPT) 6 0-55 U/L Alkaline Phosphatase 46 40-136 U/L Troponin I < 0.028 <0.028 NG/ML Total Protein 7.6 6.4-8.2 GM/DL Albumin 4.3 3.2-4.5 GM/DL My Orders Orders - SHUBHAM SERRA APRN Cbc With Automated Diff (11/07/22 16:08) Magnesium (11/07/22 16:08) Chest 1 View, Ap/Pa Only (11/07/22 16:08) Comprehensive Metabolic Panel (11/07/22 16:08) Protime With Inr (11/07/22 16:08) Partial Thromboplastin Time (11/07/22 16:08) Monitor-Rhythm Ecg Trace Only (11/07/22 16:08) Ed Iv/Invasive Line Start (11/07/22 16:08) Troponin I Evelio (11/07/22 16:08) Potassium Chloride (Tablet) (Potassium C (11/07/22 17:15) Aspirin Chewable Tablet (Aspirin Chewabl (11/07/22 17:15) Medications Given in ED Vital Signs/I&O 11/07/22 11/07/22 16:03 17:21 Temp 36.8 Pulse 82 76 Resp 18 20 B/P (MAP) 184/108 (133) 133/75 Pulse Ox 99 96 O2 Delivery Room Air Blood Pressure Mean: 133 Progress Progress Note : Progress Note Patient seen and evaluated, resting comfortably in bed, no acute distress. Based on exam and symptoms, cardiac work-up initiated included CBC, CMP, coags, troponin, magnesium, EKG, chest x-ray. 1708 Labs and imaging reviewed. CBC grossly normal. CMP shows slightly decreased potassium 3.1. Potassium replacement ordered. Troponin negative. Magnesium normal. Coags show slightly elevated PT 15.7. APTT slightly elevated 42. Chest x-ray shows no acute cardiopulmonary process. Results discussed with patient and son. Patient has not had a return of his pain. Based on lack of pain and his lab results, I am comfortable with discharging patient at this time. Patient instructed to continue taking his aspirin. Dose of 324 of aspirin ordered now as well. Patient instructed to return if his chest pain returns. Discharge instructions and return precautions provided. Initial ECG Impression Date: Nov 07, 2022 Initial ECG Impression Time: 16:04 Initial ECG Rate: 82 Initial ECG Rhythm: Normal Sinus Initial ECG Intervals: MT (207) Initial ECG Impression: Nonspecific Changes Initial ECG Comparisson: Unchanged Diagnostic Imaging Diagonstic Imaging: Xray Plain Films/CT/US/NM/MRI: chest Comments [facility] [place], [place] NAME: KUSH PINON JR [facility] REC#: [id number] PT STATUS: REG ER : 1940 PHYSICIAN: SHUBHAM SERRA APRN ADMIT DATE: 11/07/22/ER Signed Date of Exam:11/07/22 CHEST 1 VIEW, AP/PA ONLY CHEST 1 VIEW, AP/PA ONLY Indication: Chest pain. Comparison: 06/14/2022 Findings: No focal airspace disease in the visualized lungs. No pleural effusion or pneumothorax. Normal cardiomediastinal silhouette. Impression: 1. No acute cardiopulmonary process by portable radiography. Dictated by: Dictated on workstation # [id number] Dict: 11/07/221641 Trans: 11/07/221641 [facility] [id number] Interpreted by: MADYSON JONES MD Electronically signed by: MADYSON JONES MD 11/07/221641 Departure Impression Primary Impression: Chest pain Disposition: 01 HOME, SELF-CARE Condition: Stable Departure-Patient Inst. Decision time for Depature: 17:08 Referrals: BONNIE CARRION MD (PCP/Family) Primary Care Physician Patient Instructions: Chest Pain (DC) Add. Discharge Instructions: Continue taking your aspirin as prescribed. Make sure you go to your stress test as scheduled. Follow-up with Dr. Moctezuma. Return if your chest pain returns, or any other new, concerning, or worsening symptoms. All discharge instructions reviewed with patient and/or family. Voiced understanding. SHUBHAM SERRA [employer] Nov 07, 2022 16:43
[2022-11-07] MEDS ORDERED: POTASSIUM CHLORIDE 20 MEQ TABLET PO ONE (17:15)
[2022-11-07] MEDS ORDERED: ASPIRIN 81 MG CHEWABLE TABLET PO ONE (17:15)
[2022-11-07 17:21] VITALS: BP 133/75
== END 2022-11-07 17:21 | disposition home or self-care (01) ==
LOC: EDUNIT# 15:59 → ER 16:00
DX: R07.89 Other chest pain (principal); X50.0XXA Overexertion from strenuous movement or load, initial encounter
CPT/HCPCS: 36415; 71045; 80053; 83735; 84484; 85025; 85610; 85730; 93005; 93041

== ENCOUNTER → 2022-11-14 | Outpatient (CLI) | payer MEDICARE ==
[~2022-11-14] MED LIST changes: +CATHETER FLUSH 10 ML SYR IVP PRN; +REGADENOSON 0.4 MG/5 ML SYR IV ONE
[2022-11-14 13:22] VITALS: BP 185/113
--- NOTE | 2022-11-14 15:14 | Cardiology Stress Test Report ---
Stress Test Report Date of Procedure/Referring: Date of Procedure: Nov 14, 2022 PCP Bonnie Chau MD Admitting Physician Admitting Physician: Attending Physician: Елена Romero Indications: a fib Baseline Heart Rate: 78 Baseline Blood Pressure: Blood Pressure Systolic: 185 Blood Pressure Diastolic: 113 Baseline Vitals Vital Signs Date Time Temp Pulse Resp B/P (MAP) Pulse Ox O2 Delivery O2 Flow Rate FiO2 11/14/22 13:22 74 185/113 (137) Baseline EKG: Baseline EKG: NSR Summary After explaining the procedure to the patient, he signed a consent and then brought to the stress nuclear laboratory. Patient received 0.4 mg Lexiscan for stress test, ECG, heart rate and blood pressure were monitored continuously. Resting and stress dose of radio tracer were injected, imaging was acquired and reviewed in short axis, horizontal long axis and vertical long axis views. TID: 1.11 SSS: 3 SDS: 1 EF: 52 Patient tolerated Lexiscan well Baseline hypertension persisted during test Fixed defect at the inferoapical segment, no ischemia or infarction noted on SPECT images Normal left ventricular size, ejection fraction 52% Copy Copies To 1: BONNIE CHAU MD, BASHAR J MD Nov 14, 2022 15:14
== END ==
LOC: CARD 12:10
PROVIDERS: ATTEND Physician Assistant
DX: I48.0 Paroxysmal atrial fibrillation (principal)
CPT/HCPCS: 78452; 93017; A9502

== ENCOUNTER 2022-12-19 12:20 | Observation (INO) | payer MEDICARE ==
[2022-12-19] VITALS (10 sets, daily range): BP systolic 86–156; BP diastolic 52–101
[~2022-12-19] VITALS: Ht 175 cm; Wt 100.9 kg
[~2022-12-19 12:20] MED LIST changes: -CATHETER FLUSH 10 ML SYR IVP PRN; -REGADENOSON 0.4 MG/5 ML SYR IV ONE
--- NOTE | 2022-12-19 12:39 | ED Cardiac General ---
History of Present Illness General Chief Complaint: Cardiac/General Problems Stated Complaint: A-FIB Source: patient Exam Limitations: no limitations History of Present Illness Date Seen by Provider: Dec 19, 2022 Time Seen by Provider: 12:24 Initial Comments 82-year-old male with history of atrial fibrillation according to him on multiple different medications recently but currently on flecainide presents to the emergency department today for elevated heart rate and generalized weakness, generally feeling unwell he states for the last couple of days his heart rate has been high. He had an episode today where it dropped into the 30s and he was feeling dizzy, lightheaded briefly during that time. For the most part however his heart rate is between 120 and 130 with some occasional episodes where it is in the low 100s did have a little bit of chest pain in his left lower chest earlier in the day but has no pain at present. He denies any recent illnesses to include fevers chills abdominal pain or changes in bowel or bladder habits he is on Xarelto All other systems reviewed and negative except documented per HPI. Voice recognition software was used to help create this chart Allergies and Home Medications Allergies Coded Allergies: No Known Drug Allergies (Unverified , 10/20/17) Patient Home Medication List Home Medication List Reviewed: Yes Acetaminophen (Tylenol) 325 Mg Tablet, 650 MG PO Q6H PRN for PAIN-MILD (1-4), (Reported) Entered as Reported by: BURT PATEL on 12/07/20 0919 Aspirin (Aspirin EC) 81 Mg Tablet.dr, 81 MG PO HS, (Reported) Entered as Reported by: RAGHAVENDRA SHEN on 12/03/20 0336 Buspirone HCl (Buspirone HCl) 15 Mg Tablet, 15 MG PO BID, (Reported) Entered as Reported by: LIBIA PAYTON on 01/04/18 1225 Calcium Carbonate (Calcium) 600 Mg Calcium (1500 Mg) Tablet, 600 MG PO DAILY, (Reported) Entered as Reported by: FEROZ ROPER on 10/01/22 1129 Carbidopa/Levodopa (Carbidopa-Levodopa 25-100 Tab) 25 Mg-100 Mg Tablet, 1 TAB PO HS, (Reported) Entered as Reported by: RAGHAVENDRA SHEN on 12/03/20 0339 Carbidopa/Levodopa (Sinemet 25-100 mg Tablet) 25 Mg-100 Mg Tablet, 2 EACH PO 0800,1400, (Reported) Entered as Reported by: FEROZ ROPER on 10/01/22 112 Carboxymethyl/Gly/Poly80/Pf (Refresh Optive Ramone-3 Drops) 0.5 %-1 %-0.5 % Droperette, 1 DROP OU Q2H, (Reported) Entered as Reported by: FEROZ ROPER on 10/01/22 112 Carboxymethylcell/Hypromellose ([facility]vs Lubricant Gel Eye Drops) 0.25 %-0.3 % Drp.lq.gel, 1 DROPS OS HS, (Reported) Entered as Reported by: FEROZ ROPER on 10/01/22 112 Cyclobenzaprine HCl (Cyclobenzaprine HCl) 5 Mg Tablet, 5 MG PO HS, (Reported) Entered as Reported by: RAGHAVENDRA SHEN on 12/02/202117 Diclofenac Sodium (Voltaren Arthritis Pain) 20 Gm Gel..gram., 1 GM TP Q6H PRN for PAIN-BREAKTHROUGH, (Reported) Entered as Reported by: RAGHAVENDRA SHEN on 12/03/20 0408 Eyelid Cleanser Combination #5 (Ocusoft Lid Scrub) 1 Each Med..pad, 1 EACH OS BID, (Reported) Entered as Reported by: FEROZ ROPER on 10/01/22 112 Famotidine (Famotidine) 20 Mg Tablet, 20 MG PO BID, (Reported) Entered as Reported by: RAGHAVENDRA SHEN on 12/03/20 0338 Fentanyl (Fentanyl Patch 25 MCG) 25 Mcg/Hour Patch.td72, 25 MCG TD Q72H, (Reported) Entered as Reported by: FEROZ ROPER on 10/01/22 112 Fexofenadine HCl (Joellen Allergy) 180 Mg Tablet, 180 MG PO DAILY PRN for ALLERGY SYMPTOMS, (Reported) Entered as Reported by: BURT PATEL on 12/07/20 09 Furosemide (Furosemide) 20 Mg Tablet, 20 MG PO DAILY, (Reported) Entered as Reported by: FEROZ ROPER on 10/01/22 112 Gabapentin (Gabapentin) 100 Mg Capsule, 100 MG PO TID, (Reported) Entered as Reported by: BURT PATEL on 12/07/20 09 Hydrochlorothiazide (Hydrochlorothiazide) 25 Mg Tablet, 25 MG PO DAILY, (Reported) Entered as Reported by: RAGHAVENDRA SHEN on 12/03/20 0317 Hydrocodone/Acetaminophen (Hydrocodone-Acetamin 5-325 mg) 1 Each Tablet, 1 TAB PO Q6H PRN for PAIN-MODERATE (5-7), (Reported) Entered as Reported by: BURT PATEL on 12/07/20 0919 Loperamide HCl (Imodium A-D) 2 Mg Capsule, 4 MG PO Q6H PRN for DIARRHEA, ( Reported) Entered as Reported by: FEROZ ROPER on 10/01/22 112 Losartan Potassium (Losartan Potassium) 50 Mg Tablet, 50 MG PO DAILY Prescribed by: LEON MOCTEZUMA on 10/02/22 0804 Melatonin (Melatonin) 5 Mg Tablet, 10 MG PO HS, (Reported) Entered as Reported by: FEROZ ROPER on 10/01/22 112 [place]-3 Fatty Acids/Fish Oil ([place] 3 Fish Oil Softgel) 684 Mg-1,200 Mg Capsule.dr, 2 EACH PO TID, (Reported) Entered as Reported by: FEROZ ROPER on 10/01/22 112 Petrolat,Wht/Min Oil/Sod Chl (Refresh P.m. Ointment P-F) 42.5 %-57.3 % Oint...g., 1 APPLIC OP HS, (Reported) Entered as Reported by: FEROZ ROPER on 10/01/22 112 Polyethylene Glycol 3350 (Polyethylene Glycol 3350) 17 Gm Powd.pack, 17 GM PO HS, (Reported) Entered as Reported by: RAGHAVENDRA SHEN on 12/03/20 034 Potassium Chloride (Klor-Con 10) 10 Meq Tablet.er, 10 MEQ PO MO,WE,FR, (Reported) Entered as Reported by: FEROZ ROPER on 10/01/22 112 Rivaroxaban (Xarelto) 20 Mg Tablet, 20 MG PO 1700, (Reported) Entered as Reported by: FEROZ ROPER on 10/01/22 112 Ropinirole HCl (Ropinirole HCl) 1 Mg Tablet, 1 MG PO TID, (Reported) Entered as Reported by: RAGHAVENDRA SHEN on 12/03/20 0337 Sennosides/Docusate Sodium (Senna-S 8.6-50 mg Tablet) 1 Each Tablet, 1 EACH PO BID, (Reported) Entered as Reported by: RAGHAVENDRA SHEN on 12/03/20 0357 Sotalol HCl (Sotalol) 80 Mg Tablet, 80 MG PO BID Prescribed by: LEON MOCTEZUMA on 10/02/22 0804 Review of Systems Review of Systems Constitutional: see HPI Past Njkiclm-Vcyqky-Jpkyij Hx Patient Social History Tobacco Use?: No Use of E-Cig and/or Vaping dev: No Substance use?: No Alcohol Use?: No Immunizations Up To Date First/Initial COVID19 Vaccinat: 03/24 Second COVID19 Vaccination Anam: 03/24 Third COVID19 Vaccination Date: 03/24 Seasonal Allergies Seasonal Allergies: No Past Medical History Surgery/Hospitalization HX: AFIB, PARKINSONS, HTN, LOOP RECORDER, PROSTATECTOMY, HLD, GERD Surgeries: Yes Orthopedic, Prostatectomy Respiratory: No Currently Using CPAP: No Currently Using BIPAP: No Cardiac: Yes Atrial Fibrillation, High Cholesterol, Hypertension Neurological: Yes Parkinson's Disease Reproductive Disorders: No Sexually Transmitted Disease: No HIV/AIDS: No Genitourinary: Yes Prostate Problems Gastrointestinal: No Musculoskeletal: Yes Arthritis, Spasms Endocrine: No HEENT: No Loss of Vision: Denies Hearing Impairment: Hard of Hearing Cancer: Yes Prostate Did You Recieve Any Treatments: Yes Psychosocial: Yes Anxiety, Depression Integumentary: No Blood Disorders: No Adverse Reaction/Blood Tranf: No Family Medical History Patient reports no known family medical history. Heart Disease, Cancer, Hypertension, Other Conditions/Hx Physical Exam Vital Signs Vital Signs - First Documented 12/19/22 12:28 Temp 36.3 Pulse 132 Resp 18 B/P (MAP) 120/94 (103) Pulse Ox 96 Capillary Refill : Height, Weight, BMI Height: 5'7.00" Weight: 170lbs. 0.0oz. 77.855603yi; 33.15 BMI Method:Estimated General Appearance: No Apparent Distress, WD/WN HEENT: Normal ENT Inspection, Pharynx Normal Neck: Non Tender, Supple Respiratory: Chest Non Tender, Lungs Clear, Normal Breath Sounds, No Accessory Muscle Use, No Respiratory Distress Cardiovascular: No Edema, No Murmur, Normal Peripheral Pulses, Irregularly Irregular, Tachycardia Gastrointestinal: Normal Bowel Sounds, No Organomegaly, Non Tender, Soft Extremity: Normal Capillary Refill, Normal Inspection, Non Tender, No Pedal Edema Neurologic/Psychiatric: Alert, Oriented x3 Skin: Normal Color, Warm/Dry Progress/Results/Core Measures Results/Orders Lab Results Laboratory Tests Test 12/19/22 12:50 Range/Units White Blood Count 6.3 4.3-11.0 10^3/uL Red Blood Count 5.19 4.30-5.52 10^6/uL Hemoglobin 16.1 13.3-17.7 g/dL Hematocrit 47 40-54 % Mean Corpuscular Volume 90 80-99 fL Mean Corpuscular Hemoglobin 31 25-34 pg Mean Corpuscular Hemoglobin Concent 35 32-36 g/dL Red Cell Distribution Width 13.5 10.0-14.5 % Platelet Count 157 130-400 10^3/uL Mean Platelet Volume 9.9 9.0-12.2 fL Immature Granulocyte % (Auto) 0 % Neutrophils (%) (Auto) 58 42-75 % Lymphocytes (%) (Auto) 29 12-44 % Monocytes (%) (Auto) 9 0-12 % Eosinophils (%) (Auto) 2 0-10 % Basophils (%) (Auto) 1 0-10 % Neutrophils # (Auto) 3.7 1.8-7.8 10^3/uL Lymphocytes # (Auto) 1.8 1.0-4.0 10^3/uL Monocytes # (Auto) 0.6 0.0-1.0 10^3/uL Eosinophils # (Auto) 0.1 0.0-0.3 10^3/uL Basophils # (Auto) 0.1 0.0-0.1 10^3/uL Immature Granulocyte # (Auto) 0.0 0.0-0.1 10^3/uL Percent Immature Platelet Fraction 2.7 0.0-7.6 % Sodium Level 139 135-145 MMOL/L Potassium Level 3.8 3.6-5.0 MMOL/L Chloride Level 103 98-107 MMOL/L Carbon Dioxide Level 21 21-32 MMOL/L Anion Gap 15 H 5-14 MMOL/L Blood Urea Nitrogen 19 H 7-18 MG/DL Creatinine 1.28 0.60-1.30 MG/DL Estimat Glomerular Filtration Rate 56 BUN/Creatinine Ratio 15 Glucose Level 94 70-105 MG/DL Calcium Level 9.2 8.5-10.1 MG/DL Corrected Calcium 8.9 8.5-10.1 MG/DL Magnesium Level 2.4 1.6-2.4 MG/DL Total Bilirubin 1.1 H 0.1-1.0 MG/DL Aspartate Amino Transf (AST/SGOT) 32 5-34 U/L Alanine Aminotransferase (ALT/SGPT) 20 0-55 U/L Alkaline Phosphatase 48 40-136 U/L Troponin I < 0.028 <0.028 NG/ML Total Protein 8.5 H 6.4-8.2 GM/DL Albumin 4.4 3.2-4.5 GM/DL My Orders Orders - RUIZ ROSALES DO Comprehensive Metabolic Panel (12/19/22 13:08) Magnesium (12/19/22 13:08) Troponin I Emery (12/19/22 13:08) Ekg Tracing (12/19/22 13:08) Cbc And Automated Diff (12/19/22 13:08) Chest 1 View, Ap/Pa Only (12/19/22 13:08) Ekg Tracing (12/19/22 13:09) Ed Admission (Communication) (12/19/22 13:42) Vital Signs/I&O 12/19/22 12:28 Temp 36.3 Pulse 132 Resp 18 B/P (MAP) 120/94 (103) Pulse Ox 96 Comment Sinus rhythm with a rate of 83 bpm. Normal intervals. Left axis deviation. Occasional PACs. ST or T wave abnormalities no STEMI Critical Care Note Critical Care Total Time (minutes) 45 Departure Communication (Admissions) Dr. Moctezuma arrived in the emergency department today for consultation. He does not request anything more for his heart rate at this time as he has had significant adverse effects of recent medications including some profound bradycardia due to some sinus node dysfunction. With that he plans to take him to the [facility] for further evaluation. The patient is currently stable with a heart rate of 1 20-1 30 but normal blood pressures to slightly hypertensive. He is alert and oriented and without chest pain at this time. His EKG shows sinus rhythm with occasional PACs. No evidence for ischemia at this time I spoke with Dr. Piña who agrees to admit the patient and Dr. Moctezuma does plan to take him to [facility] as described above. Impression Primary Impression: Atrial fibrillation with RVR Disposition: ADMITTED INPATIENT Condition: Stable Admissions Decision to Admit Reason: Admit from ER (General) Departure-Patient Inst. Referrals: BONNIE CARRION MD (PCP/Family) Primary Care Physician RUIZ ROSALES DO Dec 19, 2022 12:39
[2022-12-19 13:15] LABS: MEAN CORPUSCULAR HEMOGLOBIN 31 pg (25-34); MEAN CORPUSCULAR HGB CONC 35 g/dL (32-36); MONOCYTES # (AUTO) 0.6 10^3/uL (0.0-1.0)
[2022-12-19 13:17] LABS: BASOPHILS # (AUTO) 0.1 10^3/uL (0.0-0.1); BASOPHILS % (AUTO) 1 % (0-10); EOSINOPHILS # (AUTO) 0.1 10^3/uL (0.0-0.3); EOSINOPHILS % (AUTO) 2 % (0-10); HEMATOCRIT 47 % (40-54); HEMOGLOBIN 16.1 g/dL (13.3-17.7); LYMPHOCYTES # (AUTO) 1.8 10^3/uL (1.0-4.0); LYMPHOCYTES % (AUTO) 29 % (12-44); MEAN CORPUSCULAR VOLUME 90 fL (80-99); MEAN PLATELET VOLUME 9.9 fL (9.0-12.2); MONOCYTES % (AUTO) 9 % (0-12); NEUTROPHILS # (AUTO) 3.7 10^3/uL (1.8-7.8); NEUTROPHILS % (AUTO) 58 % (42-75); PLATELET COUNT 157 10^3/uL (130-400); WHITE BLOOD COUNT 6.3 10^3/uL (4.3-11.0)
--- NOTE | 2022-12-19 13:24 | Cardiac Procedure Note-CS/ASA ---
Pre-Procedure Note Pre-Op Procedure Note Date of Available H&P: Dec 19, 2022 Date H&P Reviewed: Dec 19, 2022 Time H&P Reviewed: 13:24 History & Physical: H&P Reviewed, Patient Examed, No changes noted Pre-Operative Diagnosis: CP Moderate Sedation PreProcedure Time 13:24 ASA Score 3 Airway Lungs Heart ASA score ASA 1: a normal healthy patient ASA 2: a patient with a mild systemic disease (mid diabetes, controlled hypertension, obesity ASA 3: a patient with a severe systemic disease that limits activity (angina, COPD, prior Myocardial infarction) ASA 4: a patient with an incapacitating disease that is a constant threat to life (CHF, renal failure) ASA 5: a moribund patient not expected to survive 24 hrs. (ruptured aneurysm) ASA 6: a declared brain- patient whose organs are being harvested. For emergent operations, add the letter E after the classification Mallampati Classification Grade 3 Sedation Plan Analgesia, Amnesia, Plan communicated to team members, Discussed options with patient/fam, Discussed risks with patient/fam The patient is an appropriate candidate to undergo the planned procedure, sedation, and anesthesia. The patient immediately re-assessed prior to indication. LEON MINER MD Dec 19, 2022 13:24
--- NOTE | 2022-12-19 13:24 | Consultation-Cardiology ---
HPI-Cardiology Cardiology Consultation Date of Consultation 12/19/22 Date of Admission Time Seen by Provider: 13:19 Indication: Chest pain HPI 82-year-old gentleman with extensive history of paroxysmal atrial fibrillation, failed multiple medication. Reporting that for the past 3 days has been having palpitation feeling irregular heartbeat. Had an episode of severe bradycardia reported that he is heart rate was very slow and felt lightheaded. Patient started to have increasing palpitation today and chest pain described as dull achiness on the left side radiating to the left shoulder and left arm. No shortness of breath. No full syncope. On my evaluation he was back in sinus rhythm with multiple short episodes of paroxysmal atrial tachycardia. Home Medications & Allergies Allergies: Coded Allergies: No Known Drug Allergies (Unverified , 10/20/17) Home Medication List Reviewed: Yes TKZ-Gxtxbr-Kwqvyh Hx Patient Social History Marital Status: Employed/Student: retired Type Used: Cigarettes 2nd Hand Smoke Exposure: No Recent Hopitalizations: Yes Alcohol Use?: No Immunizations Up To Date Date of Influenza Vaccine: Nov 02, 2020 Past Medical History Discussed below Family Medical History Significant Family History: Heart Disease, Cancer, Hypertension, Other Conditions/Hx Family History: Patient reports no known family medical history. Review of Systems-General Review of Systems Constitutional: see HPI EENTM: see HPI, no symptoms reported Respiratory: no symptoms reported, see HPI Cardiovascular: see HPI, chest pain; No edema, No Hx of Intervention; palpitations; No syncope, No vascular heart diseas; other (Dizziness and near syncope) Gastrointestinal: no symptoms reported, see HPI Genitourinary: no symptoms reported, see HPI Musculoskeletal: no symptoms reported, see HPI Skin: no symptoms reported, see HPI Psychiatric/Neurological: No Symptoms Reported, See HPI Reviewed Test Results Reviewed Test Results Lab Laboratory Tests Test 12/19/22 12:50 Range/Units White Blood Count 6.3 4.3-11.0 10^3/uL Red Blood Count 5.19 4.30-5.52 10^6/uL Hemoglobin 16.1 13.3-17.7 g/dL Hematocrit 47 40-54 % Mean Corpuscular Volume 90 80-99 fL Mean Corpuscular Hemoglobin 31 25-34 pg Mean Corpuscular Hemoglobin Concent 35 32-36 g/dL Red Cell Distribution Width 13.5 10.0-14.5 % Platelet Count 157 130-400 10^3/uL Mean Platelet Volume 9.9 9.0-12.2 fL Immature Granulocyte % (Auto) 0 % Neutrophils (%) (Auto) 58 42-75 % Lymphocytes (%) (Auto) 29 12-44 % Monocytes (%) (Auto) 9 0-12 % Eosinophils (%) (Auto) 2 0-10 % Basophils (%) (Auto) 1 0-10 % Neutrophils # (Auto) 3.7 1.8-7.8 10^3/uL Lymphocytes # (Auto) 1.8 1.0-4.0 10^3/uL Monocytes # (Auto) 0.6 0.0-1.0 10^3/uL Eosinophils # (Auto) 0.1 0.0-0.3 10^3/uL Basophils # (Auto) 0.1 0.0-0.1 10^3/uL Immature Granulocyte # (Auto) 0.0 0.0-0.1 10^3/uL Percent Immature Platelet Fraction 2.7 0.0-7.6 % Physical Exam Physical Exam Vital Signs Vital Signs - First Documented 12/19/22 12:28 Temp 36.3 Pulse 132 Resp 18 B/P (MAP) 120/94 (103) Pulse Ox 96 Capillary Refill : Less Than 3 Seconds Height, Weight, BMI Height: 5'7.00" Weight: 170lbs. 0.0oz. 77.057474re; 33.00 BMI Method:Estimated General Appearance: No Apparent Distress, WD/WN Eyes: Bilateral Eye Normal Inspection, Bilateral Eye PERRL, Bilateral Eye EOMI HEENT: Normal ENT Inspection, Pharynx Normal Neck: Non Tender, Supple Respiratory: Chest Non Tender, Lungs Clear, Normal Breath Sounds, No Accessory Muscle Use, No Respiratory Distress Cardiovascular: No Edema, Normal Peripheral Pulses, Systolic Murmur, Irregularly Irregular, Tachycardia Gastrointestinal: Normal Bowel Sounds, No Organomegaly, Non Tender, Soft Back: Normal Inspection, No CVA Tenderness, No Vertebral Tenderness Extremity: Normal Capillary Refill, Normal Inspection, Non Tender, No Pedal Edema Neurologic/Psychiatric: Alert, Oriented x3 Skin: Normal Color, Warm/Dry Lymphatic: No Adenopathy A/P-Cardiology Admission Diagnosis Chest pain Palpitation Paroxysmal atrial fibrillation Hypertension Assessment/Plan Chest pain, resembling angina Patient had an abnormal stress test with fixed defect in the inferior apical segment done in November 2022. Due to the active chest pain I will proceed with cardiac catheterization especially that his patient is receiving flecainide Episodes of dizziness and lightheadedness with questionable bradycardia I will interrogate his loop monitor Paroxysmal atrial fibrillation, s/p NANCY with Cardioversion and LINq implantation on 12/07/20. Currently in SR. Was referred to and seen by Dr. Zelaya in Apr 2022. Amiodarone was discontinued, hoping to help improve balance issues. Patient was doing well without any further episodes of atrial fibrillation, last loop monitor interrogation on September 08, 2022 showed 76 episodes of atrial fibrillation with a heart rate ranging up to 200. Patient was unable to tolerate sotalol due to bradycardia Was started on flecainide as an outpatient. Recurrent palpitation, has been occurring more frequently over the past 3 days. I will interrogate his loop monitor Hypertension, monitor blood pressure Hyperlipidemia, I will evaluate lipid profile and metabolic profile History of dehydration and hyponatremia, I will evaluate metabolic profile Parkinson disease, still having tremors. Managed by primary care physician Mild bilateral carotid stenosis, ultrasound was done in June 2022, continue to monitor Arthritis, neck pain. Managed by primary care physician LEON MINER MD Dec 19, 2022 13:24
[2022-12-19 13:29] LABS: ALANINE AMINOTRANSFERASE 20 U/L (0-55); ALBUMIN 4.4 GM/DL (3.2-4.5); ALKALINE PHOSPHATASE 48 U/L (40-136); BILIRUBIN,TOTAL 1.1 MG/DL (0.1-1.0); BUN/CREATININE RATIO 15; CALCIUM 9.2 MG/DL (8.5-10.1); CARBON DIOXIDE 21 MMOL/L (21-32); CHLORIDE 103 MMOL/L (98-107); CREATININE SERUM 1.28 MG/DL (0.60-1.30); GFR ESTIMATED 56; GLUCOSE 94 MG/DL (70-105); MAGNESIUM 2.4 MG/DL (1.6-2.4); POTASSIUM 3.8 MMOL/L (3.6-5.0); SODIUM 139 MMOL/L (135-145); TOTAL PROTEIN 8.5 GM/DL (6.4-8.2)
--- NOTE | 2022-12-19 13:39 | Diagnostic Imaging Report ---
INDICATION: Palpitations, atrial fibrillation, heart rate fluctuations. COMPARISON: 11/07/2022. FINDINGS: Loop recorder overlies the left chest and stable. The heart size and configuration are stable and normal. The lungs are clear. No edema, pneumonia, effusion, or pneumothorax. IMPRESSION: Stable negative chest. Dictated by: Dictated on workstation # [id number]
[2022-12-19] MEDS ORDERED: fentaNYL INJECTION 100 MCG/2 ML VIAL ONE (14:00)
[2022-12-19] MEDS ORDERED: VERAPAMIL 5 MG/2 ML (CALAN) VIAL IV ONE (14:01)
[2022-12-19] MEDS ORDERED: LIDOCAINE 1% INJ 20 ML VIAL ONE (14:01)
[2022-12-19] MEDS ORDERED: HEParin 1000 UNIT/ML (10ML VIAL) FOR BOLUS ONE (14:01)
[2022-12-19] MEDS ORDERED: NITRO DRIP 25000 MCG/D5W 250 ML IV ONE (14:01)
[2022-12-19] MEDS ORDERED: MIDAZOLAM INJ 5 MG/5 ML VIAL ONE (14:01)
[2022-12-19] MEDS ORDERED: NS IV 1000 ML 1,000 ML ONE (14:01)
[2022-12-19] MEDS ORDERED: HEParin (CATH LAB) 2,000 ML IV ONE (14:01)
--- NOTE | 2022-12-19 14:52 | Cardiac Cath Report ---
Cardiac Cath Report Physician (s)/Weed Cutter (s) Physician LEON MINER MD Pre-Procedure Diagnosis Pre-Procedure Diagnosis: Coronary artery disease Post-Procedure Note Procedure Start Date: Dec 19, 2022 Name of Procedure: Left heart catheterization Left ventriculogram Findings/Procedure Note PROCEDURE NOTE: 82-year-old gentleman with history of paroxysmal atrial fibrillation admitted with chest pain and palpitation, cardiac catheterization was advised. After explaining the procedure to the patient, all pros and cons were explained, all questions were answered. The patient signed the consent and then he was placed in the cardiac catheterization laboratory. I was able to place a 6 Upper Sor[place] sheath in the right radial artery, the brachial artery has an S shaped curve, I was unable to advance the wire. Subsequently I aborted and decided to proceed with femoral access. Groin was prepped in SL fashion local anesthesia was used. Sheath placed in the femoral artery. Herbert' right and left catheter were used to access the coronary system. Herbert right catheter was prolapsed to the left ventricular cavity, pressure was measured, left ventriculogram was done, pullback LV to aorta was done. At the end of the procedure the sheath was removed. Closure device to the groin and vascular band to the wrist FINDINGS: Hemodynamics LV 81/14, end-diastolic pressure 14 Aorta 86/47 mean of 57 ANATOMY: Left Main is free of obstructive disease Left Anterior Descending is free of obstructive disease Left Circumflex is dominant artery with no obstructive disease Right Coronary Artery is nondominant artery with no obstructive disease LV Gram was done showing normal left ventricular size with good contractility, ejection fraction 60% CONCLUSION: Dominant circumflex artery with no significant obstructive disease Normal left ventricular size, ejection fraction 60% DISCUSSION AND RECOMMENDATION: Chest pain is probably due to paroxysmal atrial fibrillation and tachycardia, patient is unable to tolerate aggressive rate control medication due to underlying bradycardia. I will increase flecainide to 100 mg twice daily and evaluate tolerance and response Anesthesia Type: Conscious Sedation Estimated blood loss (mL): 20 ml Contrast Amount: 40 ml Total Radiation Dose: 503 mGy Post-Procedure Diagnosis Post-operative diagnosis: Chest pain Atrial fibrillation Palpitation Hypertension LEON MINER MD Dec 19, 2022 14:52
[2022-12-19] MEDS ORDERED: PATIENT MAY USE OWN MEDS, ALL PO SCH (15:00)
--- NOTE | 2022-12-19 15:03 | History & Physical ---
History of Present Illness HPI/Chief Complaint Chief complaint: Atrial fibrillation with RVR with bradycardia and chest pain requiring cardiac cath HPI: This is an 82-year-old male clinic patient of Dr. Chau and Dr. Moctezuma who presented to the ER With a low heart rate and found to have A-fib with RVR in the ER with chest pain. Patient was brought to the cardiac Debt Collection Specialist urgently. No intervention was required during cardiac cath. Currently patient is doing a lot better and his heart rate is 65. Source: patient, RN/MD, old records Exam Limitations: no limitations Date Seen 12/19/22 Time Seen by a Provider: 17:00 Attending Physician Bernadette Chau MD PCP Admitting Physician: Attending Physician: Jessica Moctezuma MD Referring Physician Date of Admission Home Medications & Allergies Home Medications Reviewed patient Home Medication Reconciliation performed by pharmacy medication reconciliations metrology technician and/or nursing. Patients Allergies have been reviewed. Allergies Allergies Coded Allergies No Known Drug Allergies (Unverified10/20/17) Past [id number]-[id number] Hx Past Med/Social Hx: Reviewed Nursing Past Med/Soc Hx, Reviewed and Corrections made Patient Social History Marrital Status: Employed/Student: retired Alcohol Beverage of Choice: Other Former Smoker, Quit: Mar 04, 1967 Type Used: Cigarettes 2nd Hand Smoke Exposure: No Recent Hopitalizations: Yes Immunizations Up To Date Date of Influenza Vaccine: Nov 02, 2020 Seasonal Allergies Seasonal Allergies: No Past Medical History Surgeries: Orthopedic, Prostatectomy Currently Using CPAP: No Currently Using BIPAP: No Cardiac: Atrial Fibrillation, High Cholesterol, Hypertension Neurological: Parkinson's Disease Reproductive: No Sexually Transmitted Disease: No HIV/AIDS: No Genitourinary: Prostate Problems Musculoskeletal: Arthritis, Spasms Loss of Vision: Denies Hearing Impairment: Hard of Hearing Cancer: Prostate Did You Recieve Any Treatments: Yes Psychosocial: Anxiety, Depression History of Blood Disorders: No Adverse Reaction to Blood Marshall: No Family History Patient reports no known family medical history. Heart Disease, Cancer, Hypertension, Other Conditions/Hx Review of Systems Constitutional: see HPI Cardiovascular: chest pain, palpitations Physical Exam Physical Exam Vital Signs Vital Signs - First Documented 12/19/22 12/19/22 12/19/22 12:28 14:12 15:00 Temp 36.3 Pulse 132 Resp 18 B/P (MAP) 120/94 (103) Pulse Ox 96 O2 Delivery Room Air O2 Flow Rate 2.00 Capillary Refill : Less Than 3 Seconds Height, Weight, BMI Height: 5'7.00" Weight: 170lbs. 0.0oz. [id number]; 33.00 BMI Method:Estimated General Appearance: No Apparent Distress, WD/WN, Chronically ill, Obese Eyes: Bilateral Eye Normal Inspection, Bilateral Eye PERRL, Bilateral Eye EOMI HEENT: Normal ENT Inspection, Pharynx Normal Neck: Non Tender, Supple Respiratory: Chest Non Tender, Lungs Clear, Normal Breath Sounds, No Accessory Muscle Use, No Respiratory Distress Cardiovascular: No Edema, No Murmur, Normal Peripheral Pulses, Irregularly Irregular, Tachycardia Gastrointestinal: Normal Bowel Sounds, No Organomegaly, Non Tender, Soft Back: Normal Inspection, No CVA Tenderness, No Vertebral Tenderness Extremity: Normal Capillary Refill, Normal Inspection, Non Tender, No Pedal Edema Neurologic/Psychiatric: Alert, Oriented x3 Skin: Normal Color, Warm/Dry Lymphatic: No Adenopathy Results Results/Procedures Labs Laboratory Tests 12/19/22 12:50 Patient resulted labs reviewed. Assessment/Plan Admission Diagnosis Assessment: Chest pain status postcardiac cath without intervention A-fib with RVR Bradycardia Atrial fibrillation on oral anticoagulation Hypertension Hyperlipidemia Advanced age Obesity Plan: Supportive care Monitor closely Meds Admission Status: Observation JOANNA BRADLEY DO Dec 19, 2022 15:03
[2022-12-19] MEDS ORDERED: MELATONIN 3 MG TABLET PO PRN (15:45)
[2022-12-19] MEDS ORDERED: HYDROmorphone INJECTION 2 MG/ML VIAL IV PRN (15:45)
[2022-12-19] MEDS ORDERED: diphenhydrAMINE 25 MG TABLET PO PRN (15:45)
[2022-12-19] MEDS ORDERED: ONDANSETRON INJECTION 4 MG/2 ML (SDV) IV PRN (15:45)
[2022-12-19] MEDS ORDERED: BISACODYL 10 MG SUPPOSITORY PR PRN (15:45)
[2022-12-19] MEDS ORDERED: ACETAMINOPHEN 325 MG TABLET PO PRN ×2 (15:45→19:15)
[2022-12-19] MEDS ORDERED: CALCIUM CARBONATE 500 MG CHEW TABLET PO PRN (15:45)
[2022-12-19] MEDS ORDERED: MILK OF MAGNESIA 400 MG/5 ML 30 ML UDC PO PRN (15:45)
[2022-12-19] MEDS ORDERED: ANTACID SUSPENSION 30 ML UDC PO PRN (15:45)
[2022-12-19] MEDS ORDERED: ONDANSETRON 4 MG ORAL DISSOLVE TABLET PO PRN (15:45)
[2022-12-19] MEDS ORDERED: NS IV 500 ML 500 ML IV PRN (15:45)
[2022-12-19] MEDS ORDERED: LACTULOSE SYRUP 10GM/15ML 30ML UDC PO PRN (15:45)
[2022-12-19] MEDS ORDERED: diphenhydrAMINE INJ 50 MG/ML VIAL IVP PRN (15:45)
[2022-12-19] MEDS: NS IV 1000 ML 1,000 ML IV SCH ×2 (15:49→20:24)
[2022-12-19] MEDS: inSUlin ASPART 1 UNIT/0.01 ML (PER UNIT) SC SCH ×2 (15:49→20:47)
[2022-12-19] MEDS ORDERED: RT-ALBUTEROL SULF 2.5 MG/3 ML PRE-MIX VIAL INH PRN (16:00)
[2022-12-19] MEDS ORDERED: RIVAROXABAN 20 MG TABLET PO SCH ×2 (17:00)
[2022-12-19] MEDS ORDERED: FLEC50TA PO (17:57)
[2022-12-19] MEDS ORDERED: CARB1TAB44 PO (17:57)
[2022-12-19] MEDS: oxyCODONE IMMEDIATE RELEASE 5 MG TABLET PO PRN (18:11)
[2022-12-19] MEDS ORDERED: NON-FORMULARY MEDICATION 1 EA EA (Fexofenadine HCl (Allegra Allergy) 180 MG) PO PRN (19:15)
[2022-12-19] MEDS ORDERED: DICLOFENAC 1% GEL 50 GM TUBE TP PRN (19:15)
[2022-12-19] MEDS ORDERED: LOPERAMIDE 2 MG CAPSULE PO PRN (19:15)
[2022-12-19] MEDS ORDERED: HYDROcodone/ACETAMINOPHEN 5 MG/325 MG TABLET PO PRN (19:15)
[2022-12-19] MEDS ORDERED: LORATADINE 10 MG TABLET PO PRN (19:30)
[2022-12-19] MEDS: DOCUSATE SODIUM 100 MG CAPSULE PO SCH (20:46)
[2022-12-19] MEDS: SENNOSIDES 8.6 MG TABLET PO SCH (20:46)
[2022-12-19] MEDS: FAMOTIDINE 20 MG TABLET PO SCH (20:49)
[2022-12-19] MEDS: busPIRone 15 MG TABLET PO SCH (20:49)
[2022-12-19] MEDS: GABAPENTIN 100 MG CAPSULE PO SCH (20:49)
[2022-12-19] MEDS: FLECAINIDE 100 MG TABLET PO SCH (20:49)
[2022-12-19] MEDS: rOPINIRole 1 MG TABLET PO SCH (20:49)
[2022-12-19] MEDS ORDERED: MELATONIN 10 MG TABLET PO SCH (21:00)
[2022-12-19] MEDS ORDERED: SENNA W/DOCUSATE TABLET PO SCH (21:00)
[2022-12-19] MEDS ORDERED: NON-FORMULARY MEDICATION 1 EA EA (Flecainide Acetate 50 MG) PO SCH (21:00)
[2022-12-19] MEDS ORDERED: NON-FORMULARY MEDICATION 1 EA EA (Cyclobenzaprine HCl 5 MG) PO SCH (21:00)
[2022-12-19] MEDS ORDERED: CARBIDOPA/LEVODOPA 25/100 TABLET PO SCH (21:00)
[2022-12-19] MEDS ORDERED: LEVODOPA PO SCH (21:00)
[2022-12-19] MEDS ORDERED: CYCLOBENZAPRINE 10 MG TABLET PO SCH (21:00)
[2022-12-19] MEDS ORDERED: ASPIRIN enteric coated 81MG TABLET PO SCH (21:00)
[2022-12-19] MEDS ORDERED: CARBIDOPA PO SCH (21:00)
[2022-12-19] MEDS ORDERED: NON-FORMULARY MEDICATION 1 EA EA (Eyelid Cleanser Combination #5 (Ocusoft Lid Scrub) 1 EAC OS SCH (21:00)
[2022-12-19] MEDS ORDERED: [UNRECOGNIZED DRUG - OTHER] PO SCH (21:00)
[2022-12-19] MEDS ORDERED: NON-FORMULARY MEDICATION 1 EA EA (Melatonin 10 MG) PO SCH (21:00)
[2022-12-19] MEDS ORDERED: cloNIDine 0.1 MG TABLET PO PRN (23:30)
[2022-12-20 03:00] VITALS: BP 120/72
[2022-12-20] MEDS: oxyCODONE IMMEDIATE RELEASE 5 MG TABLET PO PRN (04:48)
[2022-12-20 05:00] LABS: BASOPHILS % (AUTO) 1 % (0-10); EOSINOPHILS # (AUTO) 0.1 10^3/uL (0.0-0.3); EOSINOPHILS % (AUTO) 3 % (0-10); HEMATOCRIT 38 % (40-54); HEMOGLOBIN 13.5 g/dL (13.3-17.7); LYMPHOCYTES # (AUTO) 1.3 10^3/uL (1.0-4.0); LYMPHOCYTES % (AUTO) 31 % (12-44); MEAN CORPUSCULAR HEMOGLOBIN 31 pg (25-34); MEAN CORPUSCULAR HGB CONC 35 g/dL (32-36); MEAN CORPUSCULAR VOLUME 88 fL (80-99); MEAN PLATELET VOLUME 9.1 fL (9.0-12.2); MONOCYTES # (AUTO) 0.5 10^3/uL (0.0-1.0); MONOCYTES % (AUTO) 12 % (0-12); NEUTROPHILS # (AUTO) 2.1 10^3/uL (1.8-7.8); NEUTROPHILS % (AUTO) 53 % (42-75); PLATELET COUNT 141 10^3/uL (130-400); WHITE BLOOD COUNT 4.1 10^3/uL (4.3-11.0)
[2022-12-20 05:18] LABS: ALBUMIN 3.6 GM/DL (3.2-4.5); POTASSIUM 3.3 MMOL/L (3.6-5.0)
[2022-12-20 05:19] LABS: CALCIUM 8.6 MG/DL (8.5-10.1)
[2022-12-20 05:21] LABS: TOTAL PROTEIN 6.5 GM/DL (6.4-8.2)
[2022-12-20 05:22] LABS: BILIRUBIN,TOTAL 1.3 MG/DL (0.1-1.0)
[2022-12-20] MEDS: inSUlin ASPART 1 UNIT/0.01 ML (PER UNIT) SC SCH (05:22)
[2022-12-20 05:24] LABS: CREATININE SERUM 1.24 MG/DL (0.60-1.30); PHOSPHORUS 4.2 MG/DL (2.3-4.7)
[2022-12-20 05:27] LABS: MAGNESIUM 2.1 MG/DL (1.6-2.4)
[2022-12-20] MEDS ORDERED: POTASSIUM CHLORIDE 20 MEQ TABLET PO SCH (06:00)
[2022-12-20] MEDS ORDERED: POTASSIUM CL 10MEQ/50ML IVPB 50 ML IV SCH (06:00)
[2022-12-20] MEDS ORDERED: MAGNESIUM 1 GM/100 ML IVPB 100 ML IV SCH (06:00)
[2022-12-20 07:00] VITALS: BP 127/75
[2022-12-20] MEDS ORDERED: CALCIUM CARBONATE 600 MG TABLET PO SCH (07:00)
[2022-12-20] MEDS ORDERED: CARBIDOPA/LEVODOPA 25/100 TABLET PO SCH (08:00)
[2022-12-20] MEDS ORDERED: POTASSIUM CHLORIDE 20 MEQ TABLET PO ONE ×2 (08:00→10:00)
[2022-12-20] MEDS ORDERED: OMEGA 3 (FISH OIL) 1000 MG CAP PO SCH (08:00)
[2022-12-20] MEDS ORDERED: FLEC100T PO (08:34)
--- NOTE | 2022-12-20 08:35 | Discharge Inst-Cardiology ---
Discharge Inst-Cardiac Problems Reviewed?: Yes Discharge Medications New, Converted or Re-Newed RX: Transmitted to Pharmacy Patient Instructions Patient Instructions: Appointment with Dr. Moctezuma's office in 1 week Activity & Diet Discharge Diet: Cardiac Diet Drink 6-8 Glasses/Fluids/Day: Yes Activity as Tolerated: Yes LEON MOCTEZUMA MD Dec 20, 2022 08:35
--- NOTE | 2022-12-20 08:38 | Cardiology Progress Note ---
Subjective Date Seen by Provider: Dec 20, 2022 Time Seen by Provider: 08:36 Subjective/Events-last exam Patient was seen at bedside laying down comfortably feeling well. No new complaint Objective-Cardiology Exam Last Set of Vital Signs Vital Signs 12/19/22 12/20/22 18:00 03:00 Temp 36.1 Resp 12 O2 Flow Rate 2.00 I&O Intake and Output 12/20/22 00:00 Intake Total 200 ml Output Total 450 ml Balance -250 ml Intake Oral 200 ml Output Urine Total 450 ml Daily Weight Change No General: Alert, Oriented X3, Cooperative HEENT: Atraumatic, PERRLA Neck: Supple, No JVD, No Thyromegaly Lungs: Clear to Auscultation, Normal Air Movement Heart: Regular Rate, Normal S1, Normal S2, No Murmurs Abdomen: Normal Bowel Sounds, Soft, No Tenderness, No Hepatosplenomegaly, No Masses Extremities: No Clubbing, No Cyanosis, No Edema, Normal Pulses, No Tenderness/Swelling Skin: No Rashes, No Breakdown, No Significant Lesion Neuro: Normal Gait, Normal Speech, Strength at 5/5 X4 Ext, Normal Tone, Sensation Intact Psych/Mental Status: Mental Status NL, Mood NL Results Lab Laboratory Tests 12/19/22 12:50 12/20/22 04:37 A/P-Cardiology Admission Diagnosis Final diagnosis: Chest pain Palpitation Paroxysmal atrial fibrillation Hypertension Assessment/Plan Chest pain, resembling angina Cardiac catheterization carried out on December 19, 2022 showing nonobstructive disease. Episodes of dizziness and lightheadedness with questionable bradycardia Loop monitor interrogation showed no significant bradycardia, had multiple episodes of atrial fibrillation Paroxysmal atrial fibrillation, s/p NANCY with Cardioversion and LINq implantation on 12/07/20. Currently in SR. Was referred to and seen by Dr. Zelaya in Apr 2022. Amiodarone was discontinued, hoping to help improve balance issues. Patient was doing well without any further episodes of atrial fibrillation, last loop monitor interrogation on September 08, 2022 showed 76 episodes of atrial fibrillation with a heart rate ranging up to 200. Patient was unable to tolerate sotalol due to bradycardia Was started on flecainide as an outpatient. I will increase the dose to 100 mg twice daily Recurrent palpitation, has been occurring more frequently over the past 3 days. Hypertension, monitor blood pressure Hyperlipidemia, I will evaluate lipid profile and metabolic profile History of dehydration and hyponatremia, I will evaluate metabolic profile Parkinson disease, still having tremors. Managed by primary care physician Mild bilateral carotid stenosis, ultrasound was done in June 2022, continue to monitor Arthritis, neck pain. Managed by primary care physician LEON MINER MD Dec 20, 2022 08:38
--- NOTE | 2022-12-20 08:53 | Progress Note ---
Progress Note Jose G is an 82-year-old male clinic patient of Dr. Chau and Dr. Moctezuma who presented to the ER with a low heart rate and chest pain. In the ED he was found to have A-fib with RVR. Patient was brought to the cardiac Food Safety Manager urgently. No intervention was required during cardiac cath. Pt remains stable with no new complaints and is ready for discharge 12/20. SHUBHAM MONGE MD,RESIDENT Dec 20, 2022 08:53
[2022-12-20] MEDS ORDERED: FUROSEMIDE 20 MG TABLET PO SCH (09:00)
[2022-12-20] MEDS ORDERED: PANTOPRAZOLE 40 MG TABLET PO SCH (09:00)
[2022-12-20] MEDS ORDERED: LOSARTAN 50 MG TABLET PO SCH (09:00)
[2022-12-20] MEDS ORDERED: ASPIRIN enteric coated 81MG TABLET PO SCH (09:00)
[2022-12-20] MEDS: SENNOSIDES 8.6 MG TABLET PO SCH (09:06)
[2022-12-20] MEDS: DOCUSATE SODIUM 100 MG CAPSULE PO SCH (09:07)
[2022-12-20] MEDS: rOPINIRole 1 MG TABLET PO SCH (09:08)
[2022-12-20] MEDS: GABAPENTIN 100 MG CAPSULE PO SCH (09:09)
[2022-12-20] MEDS: busPIRone 15 MG TABLET PO SCH (09:09)
[2022-12-20] MEDS: FLECAINIDE 100 MG TABLET PO SCH (09:09)
[2022-12-20] MEDS: FAMOTIDINE 20 MG TABLET PO SCH (09:10)
--- NOTE | 2022-12-20 11:19 | Physical Therapy Progress Note ---
Therapy Progress Note Patient dismissed back to [place] before PT availability. JOEY ROSADO PT Dec 20, 2022 11:19
--- NOTE | 2022-12-20 11:26 | Discharge Summary ---
Diagnosis/Chief Complaint Date of Admission Dec 19, 2022 at 15:42 Date of Discharge Discharge Date: Dec 20, 2022 Discharge Diagnosis Assessment: Chest pain status postcardiac cath without intervention A-fib with RVR Bradycardia Atrial fibrillation on oral anticoagulation Hypertension Hyperlipidemia Advanced age Obesity Discharge Summary Discharge Physical Examination Allergies: Coded Allergies: No Known Drug Allergies (Unverified , 10/20/17) Vitals & I&Os Vital Signs Date Time Temp Pulse Resp B/P (MAP) Pulse Ox O2 Delivery O2 Flow Rate FiO2 12/20/22 11:43 66 20 127/75 96 Room Air 12/20/22 03:00 36.1 12/19/22 18:00 2.00 General Appearance: Alert, Oriented X3, Cooperative Respiratory: Clear to Auscultation Cardiovascular: Regular Rate Hospital Course Was the Problem List Reviewed?: Yes Jose G is an 82-year-old male clinic patient of Dr. Chau and Dr. Moctezuma who presented to the ER with a low heart rate and chest pain. In the ED he was found to have A-fib with RVR. Patient was brought to the cardiac Chro urgently. No intervention was required during cardiac cath. Pt remains stable with no new complaints and is ready for discharge 12/20. SHUBHAM MONGE MD,RESIDENT Labs (last 24 hrs) Laboratory Tests 12/19/22 12:50: White Blood Count 6.3, Red Blood Count 5.19, Hemoglobin 16.1, Hematocrit 47, Mean Corpuscular Volume 90, Mean Corpuscular Hemoglobin 31, Mean Corpuscular Hemoglobin Concent 35, Red Cell Distribution Width 13.5, Platelet Count 157, Mean Platelet Volume 9.9, Immature Granulocyte % (Auto) 0, Neutrophils (%) (Auto) 58, Lymphocytes (%) (Auto) 29, Monocytes (%) (Auto) 9, Eosinophils (%) (Auto) 2, Basophils (%) (Auto) 1, Neutrophils # (Auto) 3.7, Lymphocytes # (Auto) 1.8, Monocytes # (Auto) 0.6, Eosinophils # (Auto) 0.1, Basophils # (Auto) 0.1, Immature Granulocyte # (Auto) 0.0, Percent Immature Platelet Fraction 2.7, Sodium Level 139, Potassium Level 3.8, Chloride Level 103, Carbon Dioxide Level 21, Anion Gap 15H, Blood Urea Nitrogen 19H, Creatinine 1.28, Estimat Glomerular Filtration Rate 56, BUN/Creatinine Ratio 15, Glucose Level 94, Calcium Level 9.2, Corrected Calcium 8.9, Magnesium Level 2.4, Total Bilirubin 1.1H, Aspartate Amino Transf (AST/SGOT) 32, Alanine Aminotransferase (ALT/SGPT) 20, Alkaline Phosphatase 48, Troponin I < 0.028, Total Protein 8.5H, Albumin 4.4 12/19/22 15:49: Glucometer 77 12/19/22 20:31: Glucometer 97 12/20/22 04:37: White Blood Count 4.1L, Red Blood Count 4.35, Hemoglobin 13.5, Hematocrit 38L, Mean Corpuscular Volume 88, Mean Corpuscular Hemoglobin 31, Mean Corpuscular Hemoglobin Concent 35, Red Cell Distribution Width 13.5, Platelet Count 141, Mean Platelet Volume 9.1, Immature Granulocyte % (Auto) 1, Neutrophils (%) (Auto) 53, Lymphocytes (%) (Auto) 31, Monocytes (%) (Auto) 12, Eosinophils (%) (Auto) 3, Basophils (%) (Auto) 1, Neutrophils # (Auto) 2.1, Lymphocytes # (Auto) 1.3, Monocytes # (Auto) 0.5, Eosinophils # (Auto) 0.1, Basophils # (Auto) 0.0, Immature Granulocyte # (Auto) 0.0, Sodium Level 138, Potassium Level 3.3L, Chloride Level 103, Carbon Dioxide Level 26, Anion Gap 9, Blood Urea Nitrogen 20H, Creatinine 1.24, Estimat Glomerular Filtration Rate 58, BUN/Creatinine Ratio 16, Glucose Level 90, Calcium Level 8.6, Corrected Calcium 8.9, Magnesium Level 2.1, Total Bilirubin 1.3H, Aspartate Amino Transf (AST/SGOT) 19, Alanine Aminotransferase (ALT/SGPT) 6, Alkaline Phosphatase 39L, Total Protein 6.5, Albumin 3.6, Phosphorus Level 4.2 Pending Labs Laboratory Tests 12/19/22 12:50: White Blood Count 6.3, Red Blood Count 5.19, Hemoglobin 16.1, Hematocrit 47, Mean Corpuscular Volume 90, Mean Corpuscular Hemoglobin 31, Mean Corpuscular Hemoglobin Concent 35, Red Cell Distribution Width 13.5, Platelet Count 157, Mean Platelet Volume 9.9, Immature Granulocyte % (Auto) 0, Neutrophils (%) (Auto) 58, Lymphocytes (%) (Auto) 29, Monocytes (%) (Auto) 9, Eosinophils (%) (Auto) 2, Basophils (%) (Auto) 1, Neutrophils # (Auto) 3.7, Lymphocytes # (Auto) 1.8, Monocytes # (Auto) 0.6, Eosinophils # (Auto) 0.1, Basophils # (Auto) 0.1, Immature Granulocyte # (Auto) 0.0, Percent Immature Platelet Fraction 2.7, Sodium Level 139, Potassium Level 3.8, Chloride Level 103, Carbon Dioxide Level 21, Anion Gap 15, Blood Urea Nitrogen 19, Creatinine 1.28, Estimat Glomerular Filtration Rate 56, BUN/Creatinine Ratio 15, Glucose Level 94, Calcium Level 9.2, Corrected Calcium 8.9, Magnesium Level 2.4, Total Bilirubin 1.1, Aspartate Amino Transf (AST/SGOT) 32, Alanine Aminotransferase (ALT/SGPT) 20, Alkaline Phosphatase 48, Troponin I < 0.028, Total Protein 8.5, Albumin 4.4 12/19/22 15:49: Glucometer 77 12/19/22 20:31: Glucometer 97 12/20/22 04:37: White Blood Count 4.1, Red Blood Count 4.35, Hemoglobin 13.5, Hematocrit 38, Mean Corpuscular Volume 88, Mean Corpuscular Hemoglobin 31, Mean Corpuscular Hemoglobin Concent 35, Red Cell Distribution Width 13.5, Platelet Count 141, Mean Platelet Volume 9.1, Immature Granulocyte % (Auto) 1, Neutrophils (%) (Auto) 53, Lymphocytes (%) (Auto) 31, Monocytes (%) (Auto) 12, Eosinophils (%) (Auto) 3, Basophils (%) (Auto) 1, Neutrophils # (Auto) 2.1, Lymphocytes # (Auto) 1.3, Monocytes # (Auto) 0.5, Eosinophils # (Auto) 0.1, Basophils # (Auto) 0.0, Immature Granulocyte # (Auto) 0.0, Sodium Level 138, Potassium Level 3.3, Chloride Level 103, Carbon Dioxide Level 26, Anion Gap 9, Blood Urea Nitrogen 20, Creatinine 1.24, Estimat Glomerular Filtration Rate 58, BUN/Creatinine Ratio 16, Glucose Level 90, Calcium Level 8.6, Corrected Calcium 8.9, Magnesium Level 2.1, Total Bilirubin 1.3, Aspartate Amino Transf (AST/SGOT) 19, Alanine Aminotr ansferase (ALT/SGPT) 6, Alkaline Phosphatase 39, Total Protein 6.5, Albumin 3.6, Phosphorus Level 4.2 Discharge Home Medications: Active Scripts Active Flecainide Acetate 100 Mg Tablet 100 Mg PO BID Losartan Potassium 50 Mg Tablet 50 Mg PO DAILY Reported Carbidopa-Levo 25-100 mg Odt (Carbidopa/Levodopa) 25 Mg-100 Mg Tab.rapdis 2 Each PO BID Xarelto (Rivaroxaban) 20 Mg Tablet 20 Mg PO 1700 Sinemet 25-100 mg Tablet (Carbidopa/Levodopa) 25 Mg-100 Mg Tablet 1 Each PO HS Refresh P.m. Ointment P-F (Petrolat,Wht/Min Oil/Sod Chl) 42.5 %-57.3 % Oint...g. 1 Applic OP Q2H Q2H AND HS Refresh Optive Ramone-3 Drops (Carboxymethyl/Gly/Poly80/Pf) 0.5 %-1 %-0.5 % Droperette 1 Drop OU Q2H [place] 3 Fish Oil Softgel ([place]-3 Fatty Acids/Fish Oil) 684 Mg-1,200 Mg Capsule.dr 2 Each PO TID Ocusoft Lid Scrub (Eyelid Cleanser Combination #5) 1 Each Med..pad 1 Each OS BID Melatonin 5 Mg Tablet 10 Mg PO HS TAKE 2 (5MG) TABS Furosemide 20 Mg Tablet 20 Mg PO DAILY Klor-Con 10 (Potassium Chloride) 10 Meq Tablet.er 10 Meq PO MO,WE,FR Imodium A-D (Loperamide HCl) 2 Mg Capsule 4 Mg PO Q6H PRN TAKES 2 (2MG) TABS Cvs Lubricant Gel Eye Drops (Carboxymethylcell/Hypromellose) 0.25 %-0.3 % Drp.lq.gel 1 Drops OS HS Fentanyl Patch 25 MCG (Fentanyl) 25 Mcg/Hour Patch.td72 25 Mcg TD Q72H Calcium (Calcium Carbonate) 600 Mg Calcium (1500 Mg) Tablet 600 Mg PO DAILY Hydrocodone-Acetamin 5-325 mg (Hydrocodone/Acetaminophen) 1 Each Tablet 1 Tab PO Q6H PRN Gabapentin 100 Mg Capsule 100 Mg PO TID Joellen Allergy (Fexofenadine HCl) 180 Mg Tablet 180 Mg PO DAILY PRN Tylenol (Acetaminophen) 325 Mg Tablet 650 Mg PO Q6H PRN Voltaren Arthritis Pain (Diclofenac Sodium) 20 Gm Gel..gram. 1 Gm TP Q6H PRN Senna-S 8.6-50 mg Tablet (Sennosides/Docusate Sodium) 1 Each Tablet 1 Each PO BID Polyethylene Glycol 3350 17 Gm Powd.pack 17 Gm PO HS Famotidine 20 Mg Tablet 20 Mg PO BID Ropinirole HCl 1 Mg Tablet 1 Mg PO TID Aspirin EC (Aspirin) 81 Mg Tablet.dr 81 Mg PO HS Hydrochlorothiazide 25 Mg Tablet 25 Mg PO DAILY Cyclobenzaprine HCl 5 Mg Tablet 5 Mg PO HS Buspirone HCl 15 Mg Tablet 15 Mg PO BID Instructions to patient/family Please see electronic discharge instructions given to patient. JOANNA BRADLEY DO Dec 20, 2022 11:26
[2022-12-20 11:43] VITALS: BP 127/75
[2022-12-21] MEDS ORDERED: POTASSIUM CHLORIDE 10 MEQ TABLET PO SCH (07:00)
== END 2022-12-20 10:03 | disposition home or self-care (01) ==
LOC: EDUNIT# 12:20 → ER 12:22 → CATH 14:11 → CSD 15:12 → CATH 15:42 → CSD 15:42
PROVIDERS: ADMIT Internal Medicine Cardiovascular Disease; ATTEND Internal Medicine Cardiovascular Disease
DX: G89.18 Other acute postprocedural pain (principal); R07.9 Chest pain, unspecified; I48.0 Paroxysmal atrial fibrillation; I25.10 Atherosclerotic heart disease of native coronary artery without angina pectoris; I10 Essential (primary) hypertension; I65.23 Occlusion and stenosis of bilateral carotid arteries; E78.5 Hyperlipidemia, unspecified; E66.9 Obesity, unspecified; R54 Age-related physical debility; R00.2 Palpitations; R00.1 Bradycardia, unspecified; G20.A1 Parkinson's disease without dyskinesia, without mention of fluctuations; M19.90 Unspecified osteoarthritis, unspecified site; M54.2 Cervicalgia; Z79.01 Long term (current) use of anticoagulants; Z87.891 Personal history of nicotine dependence
CPT/HCPCS: 71045; 80053 ×2; 82947; 83735 ×2; 84100; 84484; 85025 ×2; 85027; 93005 ×2; 93458; 99284; C1760; C1894 ×2; G0378; 36415